=== PATIENT | male | born 1965 | race Caucasian/White ===

== ENCOUNTER 2017-08-30 19:24 | Emergency (ER) | payer SELFPAY ==
[~2017-08-30 19:24] MED LIST: Z.0.NO CURRENT MEDS
[2017-08-30 19:26] VITALS: BP 147/79; PULSE 88; RESP 16; TEMP 99.1; O2SAT 99
--- NOTE | 2017-08-30 21:27 | PD ---
HPI Chief Complaint: Laceration/Skin Injury Time Seen by Provider: 21:16 Travel History International Travel<30 days: No Contact w/Intl Traveler<30days: No Traveled to known affect area: No History of Present Illness HPI The patient is a 52-year-old male who presents to the emergency department via private vehicle for laceration to the left lower eyelid. The patient states he accidentally got a fishhook stuck in the left lower eyelid earlier today. When it pulled free, he noted a laceration to the left lower eyelid. He denies any ocular pain, pain with movement, redness, tearing, or vision changes. He cannot recall his last tetanus shot. He denies any chronic medical problems. He denies taking any medications. He denies any allergies. The patient states the laceration occurred approximately 2-1/2 hours ago. FOR[facility]LY [facility], LATER [facility] Past Medical History Medical History: Denies Significant Hx Past Surgical History Narrative Surgical Noncontributory Social History Tobacco Use: Yes Allergies-Medications (Allergen,Severity, Reaction): Coded Allergies: No Known Allergies (Verified , 06/04/10) Reported Meds & Prescriptions Reported Meds & Active Scripts Active Reported No Current Meds (Miscellaneous Medication) Misc Review of Systems Except as stated in HPI: all other systems reviewed are Neg General / Constitutional: No: Fever Eyes: Positive: Other (laceration to the lower eyelid as noted), No: Blurred Vision, Photophobia, Drainage, Redness, Foreign Body Sensation, Pain, Tearing, Blind Spots, Visual changes Musculoskeletal: Positive: Other (laceration to the lower eyelid is noted) Physical Exam Narrative GENERAL: Awake, alert, pleasant 52-year-old male who appears his stated age and is in no acute respiratory distress. SKIN: Focused skin assessment warm/dry. HEAD: Atraumatic. Normocephalic. EYES: Pupils equal and round. No scleral icterus. No injection or drainage. Pupils are 3 mm bilateral and reactive. EOMs are intact. Inspection left lower eyelid reveals an L-shaped laceration that is through and through the lower eyelid. ENT: No nasal bleeding or discharge. Mucous membranes pink and moist. NECK: Trachea midline. No JVD. MUSCULOSKELETAL: No obvious deformities. No clubbing. No cyanosis. No edema. NEUROLOGICAL: Awake and alert. No obvious cranial nerve deficits. Motor grossly within normal limits. Normal speech. PSYCHIATRIC: Appropriate mood and affect; insight and judgment normal. Data Data Last Documented VS Vital Signs Date Time Temp Pulse Resp B/P (MAP) Pulse Ox O2 Delivery O2 Flow Rate FiO2 08/30/17 19:26 99.1 88 16 147/79 (101) 99 Orders Orders Tetanus & Diptheria (08/30/17 21:23) MDM Medical Decision Making Medical Screen Exam Complete: Yes Emergency Medical Condition: Yes Medical Record Reviewed: Yes Differential Diagnosis Differential diagnosis includes laceration, corneal abrasion, subconjunctival hemorrhage, abrasion, hematoma, fracture. Narrative Course The patient has a through and through laceration left lower eyelid that actually involves the eyelid, through and through. Therefore, the on-call cranial facial surgeon was paged as the patient will need proper repair to avoid inversion/eversion of the eyelid. Dr. Castro was paged at 9:25 PM. I discussed the patient Dr. Castro who agrees with closing the eyelid inferior to the actual lid, he will see the patient at 8 AM in the office to repair the rest. The laceration was approximated using 6-0 nylon. He was administered a tetanus shot and erythromycin ointment. He is advised to use erythromycin ointment 4 times a day. Diagnosis Primary Impression: Laceration, eyelid, left Qualified Codes: S01.112A - Laceration without foreign body of left eyelid and periocular area, initial encounter Referrals: Bhaskar Castro DDS Patient Instructions: General Instructions Additional Instructions: Call Dr. Castro's office at 8 AM to make an appointment have the eyelid 6 in the morning. Erythromycin 4 times a day. Med/Other Pt SpecificInfo: Other (use the ointment provided in the emergency department for times a day for 5 days.) Disposition: 01 DISCHARGE HOME Condition: Stable James Kumar MD Aug 30, 2017 21:27
[2017-08-30] MEDS ORDERED: TETANUS/DIPHTHERIA TOXOID ADULT 0.5 ML VIAL IM ONE (21:45)
[2017-08-30] MEDS ORDERED: ERYTHROMYCIN 0.5% OPTH OINT 3.5 GM TUBO LEFT EYE ONE (21:45)
== END 2017-08-30 22:05 | disposition home or self-care (01) ==
LOC: NEPD 19:24
DX: S01.112A Laceration without foreign body of left eyelid and periocular area, initial encounter (principal); W22.8XXA Striking against or struck by other objects, initial encounter
CPT/HCPCS: 12011; 90471

== ENCOUNTER 2017-09-10 16:06 | Inpatient (IN) | payer SELFPAY ==
[~2017-09-10] VITALS: Ht 185.4 cm; Wt 80.0 kg
[2017-09-10 16:08] VITALS: BP 132/71; PULSE 16; PULSE 96; RESP 16; TEMP 101.4; O2SAT 98
[2017-09-10] MEDS ORDERED: SODIUM CHLOR 0.9% 1000 ML INJ 1,000 ML IV SCH (16:43)
--- NOTE | 2017-09-10 16:43 | PD ---
HPI Chief Complaint: Neuro Symptoms/ Deficits Time Seen by Provider: 16:25 Travel History International Travel<30 days: No Contact w/Intl Traveler<30days: No Traveled to known affect area: No History of Present Illness HPI 52-year-old male presents to the emergency Department with complaint of left arm weakness and slurred speech since Wednesday morning after he thinks he had a stroke. He said he got dizzy and had left-sided weakness which has improved minimally since Wednesday. Denies change in mentation, confusion, disorientation. Denies difficulty ambulating. Denies headache, neck pain, fevers, vomiting, chest pain, shortness of breath, abdominal pain. Denies illicit drug use. Denies alcohol use. Ports tobacco use. Denies anticoagulant therapy. Does not have established primary care provider. No known allergies. Denies significant past medical history. Denies current medications. Has no other medical complaints. No other modifying factors or associated signs and symptoms. PFSH Social History Alcohol Use: No Tobacco Use: Yes Substance Use: No Allergies-Medications (Allergen,Severity, Reaction): Coded Allergies: No Known Allergies (Verified Adverse Reaction, Unknown, 09/10/17) Reported Meds & Prescriptions Reported Meds & Active Scripts Active Reported No Current Meds (Miscellaneous Medication) Misc Review of Systems Except as stated in HPI: all other systems reviewed are Neg Physical Exam Narrative GENERAL: Well-nourished, well-developed patient, in no acute distress; fever 101.4; nontoxic-appearing SKIN: Warm and dry. HEAD: Atraumatic. Normocephalic. Left-sided facial droop noted. Tongue midline. EYES: Pupils equal and round at 3 mm with brisk reaction. No scleral icterus. No injection or drainage. PERRLA. EOMI. ENT: Mucosa pink and moist. Airway patent. NECK: Trachea midline. No lymphadenopathy. CARDIOVASCULAR: Regular rate and rhythm. No murmur appreciated. RESPIRATORY: No accessory muscle use. Clear to auscultation. Breath sounds equal bilaterally. GASTROINTESTINAL: Abdomen soft, non-tender, nondistended. Hepatic and splenic margins not palpable. Bowel sounds are active 4 quadrants. MUSCULOSKELETAL: No obvious deformities. No clubbing. No cyanosis. No edema. NEUROLOGICAL: Awake and alert. Oriented 4. No obvious cranial nerve deficits. Motor grossly within normal limits. Speech somewhat slurred. No ataxia. Left upper extremity weakness and with drift; decreased supervisor costuming strength when compared to the right. No lower extremity drift. Moves all extremities. PSYCHIATRIC: Appropriate mood and affect; insight and judgment normal. Data Data Last Documented VS Vital Signs Date Time Temp Pulse Resp B/P (MAP) Pulse Ox O2 Delivery O2 Flow Rate FiO2 09/10/17 19:36 100.7 89 19 134/70 (91) 99 Room Air Orders Orders Influenzae A/B Antigen (09/10/17 16:43) Complete Blood Count With Diff (09/10/17 16:43) Comprehensive Metabolic Panel (09/10/17 16:43) Prothrombin Time / Inr (Pt) (09/10/17 16:43) Act Partial Throm Time (Ptt) (09/10/17 16:43) Urinalysis - C+S If Indicated (09/10/17 16:43) Iv Access Insert/Monitor (09/10/17 16:43) Ecg Monitoring (09/10/17 16:43) Oximetry (09/10/17 16:43) Sodium Chlor 0.9% 1000 Ml Inj (Ns 1000 M (09/10/17 16:43) Sodium Chloride 0.9% Flush (Ns Flush) (09/10/17 16:45) Chest, Single Ap (09/10/17 16:43) Sepsis Workup Initiated (09/10/17 ) Lactic Acid Sepsis Protocol (09/10/17 16:43) Blood Culture (09/10/17 16:43) Ct Brain W/O Iv Contrast(Rout) (09/10/17 ) Drug Screen, Random Urine (09/10/17 16:43) Aspirin (Aspirin) (09/10/17 18:45) Vancomycin Inj (Vancomycin Inj) (09/10/17 18:45) Piperacil-Tazo 3.375 Gm Premix (Zosyn 3. (09/10/17 18:45) Sodium Chlor 0.9% 1000 Ml Inj (Ns 1000 M (09/10/17 18:45) Urine Culture (09/10/17 18:40) Admit Order (Ed Use Only) (09/10/17 19:38) Labs Laboratory Tests Test 09/10/17 17:15 09/10/17 18:40 White Blood Count 15.9 TH/MM3 Red Blood Count 4.77 MIL/MM3 Hemoglobin 13.3 GM/DL Hematocrit 39.5 % Mean Corpuscular Volume 82.8 FL Mean Corpuscular Hemoglobin 28.0 PG Mean Corpuscular Hemoglobin Concent 33.8 % Red Cell Distribution Width 13.1 % Platelet Count 175 TH/MM3 Mean Platelet Volume 8.3 FL Neutrophils (%) (Auto) 85.8 % Lymphocytes (%) (Auto) 6.2 % Monocytes (%) (Auto) 7.8 % Eosinophils (%) (Auto) 0.0 % Basophils (%) (Auto) 0.2 % Neutrophils # (Auto) 13.6 TH/MM3 Lymphocytes # (Auto) 1.0 TH/MM3 Monocytes # (Auto) 1.2 TH/MM3 Eosinophils # (Auto) 0.0 TH/MM3 Basophils # (Auto) 0.0 TH/MM3 CBC Comment AUTO DIFF Differential Comment AUTO DIFF CONFIRMED Toxic Granulation 1+ Platelet Estimate NORMAL Platelet Morphology Comment NORMAL Prothrombin Time 12.9 SEC Prothromb Time International Ratio 1.3 RATIO Activated Partial Thromboplast Time 28.2 SEC Blood Urea Nitrogen 14 MG/DL Creatinine 1.05 MG/DL Random Glucose 130 MG/DL Total Protein 7.8 GM/DL Albumin 2.6 GM/DL Calcium Level 8.5 MG/DL Alkaline Phosphatase 132 U/L Aspartate Amino Transf (AST/SGOT) 90 U/L Alanine Aminotransferase (ALT/SGPT) 65 U/L Total Bilirubin 0.7 MG/DL Sodium Level 128 MEQ/L Potassium Level 3.6 MEQ/L Chloride Level 91 MEQ/L Carbon Dioxide Level 28.7 MEQ/L Anion Gap 8 MEQ/L Estimat Glomerular Filtration Rate 75 ML/MIN Lactic Acid Level 2.3 mmol/L Urine Color YELLOW Urine Turbidity CLEAR Urine pH 6.0 Urine Specific [place] 1.021 Urine Protein 30 mg/dL Urine Glucose (UA) NEG mg/dL Urine Ketones NEG mg/dL Urine Occult Blood LARGE Urine Nitrite NEG Urine Bilirubin NEG Urine Urobilinogen 8.0 MG/DL Urine Leukocyte Esterase NEG Urine RBC 12 /hpf Urine WBC 2 /hpf Urine Bacteria MOD /hpf Urine Mucus FEW /lpf Microscopic Urinalysis Comment CULTURE INDICATED MDM Medical Decision Making Medical Screen Exam Complete: Yes Emergency Medical Condition: Yes Medical Record Reviewed: Yes Differential Diagnosis Stroke, CVA, sepsis, influenza Narrative Course 52-year-old male with left-sided facial droop, left arm weakness, and a little bit of slurred speech since Wednesday. She denies fevers or recent illness. He does have a fever of 101.4 in the ER. He is nontoxic-appearing. He has no current complaints except for the left-sided weakness. I discussed with my attending physician, Dr. Mcelroy, and she agrees with my plan of care. Patient placed on cardiopulmonary monitor. IV site obtained. CBC, CMP, coags, urinalysis, lactic acid, blood cultures, normal saline bolus, CT head, chest x- ray, drug screen ordered. 1833: CT head and chest x-ray concludes: Chest X-Ray 09/10/17 1643 Signed Impressions: Service Date/Time: Sunday, September 10, 2017 17:00 - CONCLUSION: No acute disease. Bimal Diallo MD Head CT 09/10/17 0000 Signed Impressions: Service Date/Time: Sunday, September 10, 2017 17:16 - CONCLUSION: 1. Questionable hypodensity in the mid right cerebral hemisphere adjacent to the sylvian fissure is seen on only one image and may be artifactual. This would not explain any right-sided symptoms the patient was experiencing. If there is a clinical concern, MRI of the brain could be performed for further characterization. 2. Minimal chronic sinus disease in one of the anterior right ethmoid air cells on the right. Kirby Trejo MD WBC 15.9. Coags unremarkable. Sodium 128. Lactic acid 2.3. Vancomycin, Zosyn , second normal saline bolus, aspirin ordered. 1908: Urinalysis with signs of infection and reflex urine culture. Call placed to AAYUSH for admission. 1938: I spoke [facility] Mendes and report given for patient admission. Physician Communication Physician Communication AAYUSH Mendes Diagnosis Primary Impression: Left-sided weakness Additional Impressions: Sepsis Qualified Codes: A41.9 - Sepsis, unspecified organism Weakness on left side of face UTI (urinary tract infection) Qualified Codes: N39.0 - Urinary tract infection, site not specified Admitting Information Admitting Physician Requests: Admit Tracy Wyman [facility] Sep 10, 2017 16:43
[2017-09-10] MEDS ORDERED: SODIUM CHLORIDE 0.9% FLUSH 10 ML FLUSH IV FLUSH PRN ×2 (16:45→19:45)
[2017-09-10 17:21] VITALS: O2SAT 97
--- NOTE | 2017-09-10 17:23 | RADRPT ---
EXAM DATE/TIME: 09/10/2017 17:00 [facility] COMPARISON: No previous studies available for comparison. INDICATIONS : Left hand pain. Fever since wednesday. MEDICAL HISTORY : None. SURGICAL HISTORY : Unobtainable. ENCOUNTER: Initial ACUITY: 2 days PAIN SCORE: 0/10 LOCATION: Bilateral chest FINDINGS: A single view of the chest demonstrates the lungs to be symmetrically aerated without evidence of mas s, infiltrate or effusion. The cardiomediastinal contours are unremarkable. Osseous structures are intact. CONCLUSION: No acute disease. Bimal Diallo MD on September 10, 2017 at 17:21 Board Certified Radiologist. This report was verified electronically.
[2017-09-10 17:26] VITALS: BP 146/65; PULSE 95; RESP 16; O2SAT 98
[2017-09-10 17:29] LABS: AUTOMATED NEUTROPHIL # 13.6 TH/MM3 (1.8-7.7); BASOPHIL % 0.2 % (0.0-2.0); HEMATOCRIT 39.5 % (39.0-51.0); LYMPH % 6.2 % (9.0-44.0); MEAN CELL VOLUME 82.8 FL (80.0-100.0); MEAN CORPUSCULAR HGB CONC 33.8 % (32.0-36.0); MONO % 7.8 % (0.0-8.0); NEUT % 85.8 % (16.0-70.0); PLATELET COUNT 175 TH/MM3 (150-450); RED BLOOD COUNT 4.77 MIL/MM3 (4.50-5.90); RED CELL DISTRIBUTION WIDTH 13.1 % (11.6-17.2); WHITE BLOOD COUNT 15.9 TH/MM3 (4.0-11.0)
--- NOTE | 2017-09-10 17:32 | RADRPT ---
EXAM DATE/TIME: 09/10/2017 17:16 [facility] COMPARISON: No previous studies available for comparison. INDICATIONS : Evaluate for stroke. Right side weakness yesterday which subsided, today left facial droop. RADIATION DOSE: 36.08 CTDIvol (mGy) MEDICAL HISTORY : None SURGICAL HISTORY : None. ENCOUNTER: Initial ACUITY: 1 day PAIN SCALE: 0/10 LOCATION: cranial TECHNIQUE: Multiple contiguous axial images were obtained of the head. Using automated exposure control and adj ustment of the mA and/or kV according to patient size, radiation dose was kept as low as reasonably a chievable to obtain optimal diagnostic quality images. DICOM format image data is available electro nically for review and comparison. FINDINGS: CEREBRUM: The ventricles are normal for age. No evidence of midline shift, mass lesion, hemorrhage or acute in farction. Questionable hypodensity at the junction of the right centrum semiovale and prince radiata adjacent to the sylvian fissure could represent a small area of encephalomalacia versus partial volu me averaging of the normal brain parenchyma with the fissure. No extra-axial fluid collections are se en. POSTERIOR FOSSA: The cerebellum and brainstem are intact. The 4th ventricle is midline. The cerebellopontine angle i s unremarkable. EXTRACRANIAL: The visualized portion of the orbits is intact. Isolated mucoperiosteal thickening in one of the ante rior ethmoid air cells on the right. SKULL: The calvaria is intact. No evidence of skull fracture. CONCLUSION: 1. Questionable hypodensity in the mid right cerebral hemisphere adjacent to the sylvian fissure is s een on only one image and may be artifactual. This would not explain any right-sided symptoms the pat ient was experiencing. If there is a clinical concern, MRI of the brain could be performed for furthe r characterization. 2. Minimal chronic sinus disease in one of the anterior right ethmoid air cells on the right. Kirby Trejo MD on September 10, 2017 at 17:25 Board Certified Radiologist. This report was verified electronically.
[2017-09-10 17:34] LABS: HEMO FLAGS AUTO DIFF
[2017-09-10 17:40] LABS: APTT (PATIENT) 28.2 SEC (24.3-30.1); INTERNATIONAL NORMALIZED RATIO 1.3 RATIO; PROTHROMBIN TIME - PATIENT 12.9 SEC (9.8-11.6)
[2017-09-10 17:46] LABS: ALT (GPT) 65 U/L (12-78); ANION GAP 8 MEQ/L (5-15); AST (GOT) 90 U/L (15-37); BICARBONATE 28.7 MEQ/L (21.0-32.0); BLOOD UREA NITROGEN 14 MG/DL (7-18); CHLORIDE 91 MEQ/L (98-107); GLOMERULAR FILTRATION RATE 75 ML/MIN (>89); POTASSIUM 3.6 MEQ/L (3.5-5.1); SODIUM (NA) 128 MEQ/L (136-145)
[2017-09-10 17:48] LABS: ALKALINE PHOSPHATASE 132 U/L (45-117); TOTAL BILIRUBIN ADULT 0.7 MG/DL (0.2-1.0)
[2017-09-10 18:19] LABS: PLATELET ESTIMATE SMEAR NORMAL (NORMAL); PLATELET MORPHOLOGY NORMAL (NORMAL); SCAN/DIFF AUTO DIFF CONFIRMED; TOXIC GRANULATION 1+ (NORMAL)
[2017-09-10 18:45] VITALS: BP 126/71; PULSE 83; RESP 16; O2SAT 98
[2017-09-10] MEDS ORDERED: PIPERACIL-TAZO 3.375 GM PREMIX 50 ML IV ONE (18:45)
[2017-09-10] MEDS ORDERED: SODIUM CHLOR 0.9% 1000 ML INJ 1,000 ML IV ONE (18:45)
[2017-09-10] MEDS ORDERED: ASPIRIN 325 MG TAB PO ONE (18:45)
[2017-09-10] MEDS ORDERED: VANCOMYCIN INJ 1,000 MG in SODIUM CHLOR 0.9% 250 ML INJ 250 ML IV ONE (18:45)
[2017-09-10 19:07] LABS: BACTERIA, URINE MOD /hpf; BLOOD, URINE LARGE (NEG); COMMENT (UR) CULTURE INDICATED; CULTURE IF INDICATED CULTURE INDICATED; GLUCOSE,URINE NEG (NEG); KETONE, URINE NEG (NEG); MUCUS URINE FEW /lpf (OCC); NITRITE,URINE NEG (NEG); URINE COLOR YELLOW (YELLW/STRAW)
[2017-09-10 19:20] LABS: LACTIC ACID GHOST NOT REPORTABLE
[2017-09-10 19:36] VITALS: BP 134/70; PULSE 89; RESP 19; TEMP 100.7; O2SAT 99
--- NOTE | 2017-09-10 19:44 | HHI.HP ---
[facility] Primary [facility] Physician No Primary Care Physician Admission Diagnosis sepsis, left sided facial droop and weakness Diagnoses: (1) CVA (cerebral vascular accident) Diagnosis: Principal (2) Sepsis Diagnosis: Principal (3) UTI (urinary tract infection) Diagnosis: Principal (4) Tobacco abuse Diagnosis: Principal Travel History International Travel<30 Days: No Contact w/Intl Traveler <30 Da: No Traveled to Known Affected Are: No History of Present Illness This is a 52-year-old male with no reported PMH except for Tobacco Abuse who presented to the ER with complaints of left-sided weakness in addition to slurred speech x2 days. States symptoms started on Wednesday w/ left-sided weakness, did not seek medical attention at that time. Today w/ persistent weakness and left facial droop w/ slurred speech. On arrival, BP 132/71, HR 96 , O2 sat 98% on RA, Temp 101.4. WBC 15.9. GFR 75. Lactic Acid 2.3. INR 1.3. UA positive for UTI. CXR with no acute findings. CT Head with questionable hypodensity and mid right cerebral hemisphere, recommendation for MRI. S/p Blood/Urine cultures and Vanc/Zosyn in ER. Review of Systems Except as stated in HPI: all other systems reviewed are Neg ROS: 14 point review of systems otherwise negative. Past Family Social History Past Medical History PMH: None Past Surgical History PAST SURGICAL HISTORY: None Allergies: Coded Allergies: No Known Allergies (Verified Adverse Reaction, Unknown, 09/10/17) Family History PAST FAMILY HISTORY: Reviewed. No h/o DM or CAD Social History PAST SOCIAL HISTORY: Negative for alcohol or drugs. Positive for tobacco. Physical Exam Vital Signs Vital Signs Date Time Temp Pulse Resp B/P (MAP) Pulse Ox O2 Delivery O2 Flow Rate FiO2 09/10/17 19:36 100.7 89 19 134/70 (91) 99 Room Air 09/10/17 18:45 83 16 126/71 (89) 98 Room Air 09/10/17 17:26 95 16 146/65 (92) 98 Room Air 09/10/17 17:21 97 Room Air 09/10/17 17:21 97 Room Air 09/10/17 16:08 101.4 96 16 132/71 (91) 98 Physical Exam PE: GENERAL: Middle-aged male in no acute distress. HEENT: PERRLA, EOMI. No scleral icterus or conjunctival pallor. No lid lag. + left facial droop. Slurred speech. CARDIOVASCULAR: Regular rate and rhythm. No obvious murmurs to auscultation. No chest tenderness to palpation. RESPIRATORY: No obvious rhonchi or wheezing. Clear to auscultation. Breath sounds equal bilaterally. GASTROINTESTINAL: Abdomen soft, non-tender, nondistended. BS normal. MUSCULOSKELETAL: Extremities without clubbing, cyanosis, or edema. No obvious deformities. NEUROLOGICAL: Awake, alert and oriented x4. LUE/LLE weakness, 4/5. Moving both upper and lower extremities spontaneously. Laboratory Laboratory Tests Test 09/10/17 17:15 09/10/17 18:40 White Blood Count 15.9 Red Blood Count 4.77 Hemoglobin 13.3 Hematocrit 39.5 Mean Corpuscular Volume 82.8 Mean Corpuscular Hemoglobin 28.0 Mean Corpuscular Hemoglobin Concent 33.8 Red Cell Distribution Width 13.1 Platelet Count 175 Mean Platelet Volume 8.3 Neutrophils (%) (Auto) 85.8 Lymphocytes (%) (Auto) 6.2 Monocytes (%) (Auto) 7.8 Eosinophils (%) (Auto) 0.0 Basophils (%) (Auto) 0.2 Neutrophils # (Auto) 13.6 Lymphocytes # (Auto) 1.0 Monocytes # (Auto) 1.2 Eosinophils # (Auto) 0.0 Basophils # (Auto) 0.0 CBC Comment AUTO DIFF Differential Comment AUTO DIFF CONFIRMED Toxic Granulation 1+ Platelet Estimate NORMAL Platelet Morphology Comment NORMAL Prothrombin Time 12.9 Prothromb Time International Ratio 1.3 Activated Partial Thromboplast Time 28.2 Blood Urea Nitrogen 14 Creatinine 1.05 Random Glucose 130 Total Protein 7.8 Albumin 2.6 Calcium Level 8.5 Alkaline Phosphatase 132 Aspartate Amino Transf (AST/SGOT) 90 Alanine Aminotransferase (ALT/SGPT) 65 Total Bilirubin 0.7 Sodium Level 128 Potassium Level 3.6 Chloride Level 91 Carbon Dioxide Level 28.7 Anion Gap 8 Estimat Glomerular Filtration Rate 75 Lactic Acid Level 2.3 Urine Color YELLOW Urine Turbidity CLEAR Urine pH 6.0 Urine Specific [place] 1.021 Urine Protein 30 Urine Glucose (UA) NEG Urine Ketones NEG Urine Occult Blood LARGE Urine Nitrite NEG Urine Bilirubin NEG Urine Urobilinogen 8.0 Urine Leukocyte Esterase NEG Urine RBC 12 Urine WBC 2 Urine Bacteria MOD Urine Mucus FEW Microscopic Urinalysis Comment CULTURE INDICATED Date/Time Source Procedure Growth Status 09/10/17 19:25 Blood Peripheral Aerobic Blood Culture Pending Received 09/10/17 19:25 Blood Peripheral Anaerobic Blood Culture Pending Received 09/10/17 19:27 Nasal Washing Influenza Types A,B Antigen (SERENITY) Pending Received 09/10/17 18:40 Urine Clean Catch Urine Culture Pending Received Result Diagram: 09/10/17 1715 09/10/17 171 Caprini VTE Risk Assessment Caprini VTE Risk Assessment: Mod/High Risk (score >= 2) Caprini Risk Assessment Model Point Value = 1 Point Value = 2 Point Value = 3 Point Value = 5 Age 41-60 Minor surgery BMI > 25 kg/m2 Swollen legs Varicose veins or History of unexplained or recurrent spontaneous Oral contraceptives or hormone replacement Sepsis (< 1 month) Serious lung disease, including pneumonia (< 1 month) Abnormal pulmonary function Acute myocardial infarction Congestive heart failure (< 1 month) History of inflammatory bowel disease Medical patient at bed rest Age 61-74 Arthroscopic surgery Major open surgery (> 45 min) Laparoscopic surgery (> 45 min) Malignancy Confined to bed (> 72 hours) Immobilizing plaster cast Central venous access Age >= 75 History of VTE Family history of VTE Factor V Leiden Prothrombin [id number] Lupus anticoagulant Anticardiolipin antibodies Elevated serum homocysteine Heparin-induced thrombocytopenia Other congenital or acquired thrombophilia Stroke (< 1 month) Elective arthroplasty Hip, pelvis, or leg fracture Acute spinal cord injury (< 1 month) Prophylaxis Regimen Total Risk Factor Score Risk Level Prophylaxis Regimen 0-1 Low Early ambulation 2 Moderate Order ONE of the following: *Sequential Compression Device (SCD) *Heparin 5000 units SQ BID 3-4 Higher Order ONE of the following medications: *Heparin 5000 units SQ TID *Enoxaparin/Lovenox 40 mg SQ daily (WT < 150 kg, CrCl > 30 mL/min) *Enoxaparin/Lovenox 30 mg SQ daily (WT < 150 kg, CrCl > 10-29 mL/min) *Enoxaparin/Lovenox 30 mg SQ BID (WT < 150 kg, CrCl > 30 mL/min) AND/OR *Sequential Compression Device (SCD) 5 or more Highest Order ONE of the following medications: *Heparin 5000 units SQ TID (Preferred with Epidurals) *Enoxaparin/Lovenox 40 mg SQ daily (WT < 150 kg, CrCl > 30 mL/min) *Enoxaparin/Lovenox 30 mg SQ daily (WT < 150 kg, CrCl > 10-29 mL/min) *Enoxaparin/Lovenox 30 mg SQ BID (WT < 150 kg, CrCl > 30 mL/min) AND *Sequential Compression Device (SCD) Assessment and Plan Problem List: (1) Sepsis ICD Code: A41.9 - Sepsis, unspecified organism Status: Acute (2) UTI (urinary tract infection) ICD Code: N39.0 - Urinary tract infection, site not specified Status: Acute (3) CVA (cerebral vascular accident) ICD Code: I63.9 - Cerebral infarction, unspecified (4) Tobacco abuse ICD Code: Z72.0 - Tobacco use Assessment and Plan A/P: 1. Sepsis: Temp 101.4, HR 96, WBC 15.9, Source-UTI. S/p Blood/Urine cultures , Vanc/Zosyn in ER. Follow up cultures, continue IV Abx. CXR w/ no acute findings, images reviewed by me. 2. UTI: U/a w/ UTI. Continue w/ treatment as above, follow up cultures. 3. CVA: Left-sided weakness, slurred speech, facial droop x2 days, outside TPA window. CT Head w/ questionable hypodensity right cerebral hemisphere, images reviewed by me. Check MRI/MRA, start ASA/Pravastatin, Consult PT/Speech for further eval. Consult Neurology. 4. Tobacco Abuse: Pt counselled. Ativan prn if needed. No NicoDerm to avoid vasoconstriction. 5. DVT Prophylaxis: SCD/Teds. 6. Social work for d/c planning as needed. 7. Case discussed w/ ER physician at length. Physician Certification 2 Midnight Certification Type: Admission for Inpatient Services Order for Inpatient Services The services are ordered in accordance with Medicare regulations or non- Medicare payer requirements, as applicable. In the case of services not specified as inpatient-only, they are appropriately provided as inpatient services in accordance with the 2-midnight benchmark. Estimated LOS (days): 2 days is the estimated time the patient will need to remain in the hospital, assuming treatment plan goals are met and no additional complications. Post-Hospital Plan: Not yet determined Problem Qualifiers (1) Sepsis: Qualified Codes: A41.9 - Sepsis, unspecified organism (2) UTI (urinary tract infection): Qualified Codes: N39.0 - Urinary tract infection, site not specified Taylor Ventura MD Sep 10, 2017 19:44
[2017-09-10] MEDS ORDERED: GLUCAGON 1 MG/ML VIAL OTHER PRN (19:45)
[2017-09-10] MEDS ORDERED: MORPHINE SULFATE 4 MG/ML INJ IV PUSH PRN (19:45)
[2017-09-10] MEDS ORDERED: DEXTROSE 50% IN WATER 50 ML VIAL(D50) IV PUSH PRN (19:45)
[2017-09-10] MEDS ORDERED: ENALAPRILAT 1.25 MG/ML VIAL IV PUSH PRN (19:45)
[2017-09-10] MEDS ORDERED: ONDANSETRON HCL 4 MG/2 ML VIAL IVP PRN (19:45)
[2017-09-10] MEDS ORDERED: BISACODYL 10 MG SUPP RECTAL PRN (19:45)
[2017-09-10] MEDS: INSULIN ASPART SUPPLEMENTAL SCALE SQ SCH (21:00)
[2017-09-10 21:43] VITALS: BP 119/71; PULSE 77; RESP 18; TEMP 98.3; O2SAT 97
--- NOTE | 2017-09-10 21:49 | RADRPT ---
EXAM DATE/TIME: 09/10/2017 21:01 [facility] COMPARISON: No previous studies available for comparison. INDICATIONS : CVA. Left side weakness. MEDICAL HISTORY : None. SURGICAL HISTORY : Right wrist. ENCOUNTER: Subsequent ACUITY: 3 day PAIN SCORE: 3/10 LOCATION: cranial TECHNIQUE: Multiplanar, multisequence MRI of the brain was performed without contrast. FINDINGS: There is a small lacunar infarct in left frontal lobe. There is a 2.1 cm infarct in the right MCA dis tribution with additional smaller infarcts in the right MCA distribution. There is a focal small infa rct on the right side superiorly at the cerebellar vermis. There is also small infarct in the dorsal aspect of the midbrain. Also lacunar infarct in the right dentate nucleus of the cerebellum. No mass effect or midline shift. No hydrocephalus. No abnormal extra-axial fluid collections. CONCLUSION: 1. Small scattered bilateral infarcts as above predominantly in the right MCA distribution. Amado Hale MD on September 10, 2017 at 21:41 Board Certified Radiologist. This report was verified electronically.
--- NOTE | 2017-09-10 21:51 | RADRPT ---
EXAM DATE/TIME: 09/10/2017 21:01 [facility] COMPARISON: No previous studies available for comparison. INDICATIONS : CVA. Left side weakness. MEDICAL HISTORY : None. SURGICAL HISTORY : Right wrist. ENCOUNTER: Subsequent ACUITY: 3 day PAIN SCORE: 3/10 LOCATION: cranial Please note a normal MRA of the brain does not entirely exclude the possibility of a small aneurysm, nor the possibility of distal intracranial vessel disease. TECHNIQUE: 3D time of flight MRA was performed. Source images, multiplanar STS MIP, and 3D volume MIP reconstru ctions were reviewed. FINDINGS: There is excellent visualization of the major intracranial arteries out to the second-order branch ve ssels. There is no evidence for aneurysm, vessel truncation or stenosis, and no evidence for vascula r malformation. CONCLUSION: Normal examination for a patient of this age. Amado Hale MD on September 10, 2017 at 21:47 Board Certified Radiologist. This report was verified electronically.
[2017-09-10] MEDS: SODIUM CHLOR 0.9% 1000 ML INJ 1,000 ML IV SCH (23:44)
[2017-09-10] MEDS: PRAVASTATIN SOD 40 MG TAB PO SCH (23:44)
[2017-09-10] MEDS: SODIUM CHLORIDE 0.9% FLUSH 10 ML FLUSH IV FLUSH SCH (23:44)
[2017-09-11] VITALS (7 sets, daily range): BP systolic 116–145; BP diastolic 67–75; PULSE 63–93; RESP 17–20; TEMP 97.8–100.1; O2SAT 97–100
[2017-09-11] MEDS: INSULIN ASPART SUPPLEMENTAL SCALE SQ SCH ×4 (08:00→21:19)
--- NOTE | 2017-09-11 08:04 | MB ---
cc: JON NORTH M.D. DATE OF CONSULTATION: 09/11/2017 REASON FOR CONSULTATION: He is 52-year-old seen in neurological consultation. He developed symptoms 3 days ago and came to the hospital yesterday. The patient has developed left-sided weakness. According to the H&P. He is very poor historian. The patient admits smoking but denies drug or medication use. I spoke to the RN. The patient is has been agitated at times during the night, somewhat poorly cooperative. Also denies alcohol use. PHYSICAL EXAMINATION: NEUROLOGIC EXAMINATION: On exam he is awake and oriented. The right pupil is slightly smaller but both are reactive. Visual almeida were full. No obvious facial weakness. He raised the arm and he has actually good strength on the left side better than right. He has prominent a taxi right upper extremity on [id number] testing while resting there is no underlying movement disorder. He seems to move the right lower extremity with a fairly good coordination on the heel - knee - callejas testing. He has brisker reflexes on the right and plantar extensor response on the right. ANCILLARY DATA: WBC 15.9, hemoglobin 13.3, platelets 175. Sodium 128, potassium 3.6, BUN and creatinine normal. Glucose 130, AST elevated to 90 and ALT 65, INR 1.3. Toxicology positive urine cocaine, 12 RBCs and two WBCs in the urine. The MRI brain was reviewed. There are subacute areas of infarct bilaterally including right and left cerebral hemisphere as well as right superior cerebellar and extending to the mid brain. ASSESSMENT/PLAN: 1. Multiple relatively small subacute infarcts multiple distribution. 2. Positive cocaine in urine which the patient denies any substance abuse. 3. Look for endocarditis. 4. Look for heart thrombus. 5. Apparent urinary tract infection 6. Possible sepsis. 7. He is on statin and aspirin and antibiotics. 8. Further evaluation to include echocardiogram. 9. I will check sed rate, blood cultures if not been drawn yet. 10. MRA head was normal. 11. Will have carotid ultrasound if not done yet. 12. Thank you for asking us to assist in his care. 13. We will have SCDs. MD ANIA Lyon/baldemar /7:05 AM /7:49 AM
--- NOTE | 2017-09-11 08:21 | HHI.PR ---
Subjective Remarks left sided weakness Upper more than lower- per patient some improvement in strength denies any headaches, nausea or vomiting or neck pain no complians of cough or dysuria Objective Vitals Vital Signs Date Time Temp Pulse Resp B/P (MAP) Pulse Ox O2 Delivery O2 Flow Rate FiO2 09/11/17 04:46 99.5 83 18 129/67 (87) 99 09/11/17 00:32 99.0 63 18 131/70 (90) 100 09/10/17 21:43 98.3 77 18 119/71 (87) 97 09/10/17 21:38 09/10/17 19:36 100.7 89 19 134/70 (91) 99 Room Air 09/10/17 18:45 83 16 126/71 (89) 98 Room Air 09/10/17 17:26 95 16 146/65 (92) 98 Room Air 09/10/17 17:21 97 Room Air 09/10/17 17:21 97 Room Air 09/10/17 16:08 101.4 96 16 132/71 (91) 98 I/O 09/10/17 09/10/17 09/10/17 09/11/17 09/11/17 09/11/17 07:00 15:00 23:00 07:00 15:00 23:00 Intake Total 2300 ml Output Total 400 ml Balance 2300 ml -400 ml Intake IV Total 2300 ml Output Urine Total 400 ml Result Diagram: 09/10/17 1715 09/10/17 1715 Imaging Last Impressions Chest X-Ray 09/10/17 1643 Signed Impressions: Service Date/Time: Sunday, September 10, 2017 17:00 - CONCLUSION: No acute disease. Bimal Diallo MD Head Magnetic Resonance Angiography 09/10/17 0000 Signed Impressions: Service Date/Time: Sunday, September 10, 2017 21:01 - CONCLUSION: Normal examination for a patient of this age. Amado Hale MD Head CT 09/10/17 0000 Signed Impressions: Service Date/Time: Sunday, September 10, 2017 17:16 - CONCLUSION: 1. Questionable hypodensity in the mid right cerebral hemisphere adjacent to the sylvian fissure is seen on only one image and may be artifactual. This would not explain any right-sided symptoms the patient was experiencing. If there is a clinical concern, MRI of the brain could be performed for further characterization. 2. Minimal chronic sinus disease in one of the anterior right ethmoid air cells on the right. Kirby Trejo MD Brain MRI 09/10/17 0000 Signed Impressions: Service Date/Time: Sunday, September 10, 2017 21:01 - CONCLUSION: 1. Small scattered bilateral infarcts as above predominantly in the right MCA distribution. Amado Hale MD Objective Remarks awake and alert, oriented x3 speech clear anicteric, right eyes- slight ptosis- + shallow left nasolabial fold + carotid bruit left regular rhythm, no murmur abdomen soft, nontender extremities no calf sweelling or tendernss grossly no sensory deficits 4/5 left UE, 4/5 LLE A/P Problem List: (1) Sepsis ICD Code: A41.9 - Sepsis, unspecified organism Status: Acute (2) UTI (urinary tract infection) ICD Code: N39.0 - Urinary tract infection, site not specified Status: Acute (3) CVA (cerebral vascular accident) ICD Code: I63.9 - Cerebral infarction, unspecified (4) Tobacco abuse ICD Code: Z72.0 - Tobacco use Assessment and Plan 52 years old male right handed male, 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 Statins. PT/OT consult Gram negative Sepsis: secondary to UTI on admission T down. CXR negative- reviewed FF cultures Vanc/Zosyn in ER. Follow up cultures, continue IV Abx. - currently on Ceftriaxone- change to IV Levaquin get a renal ultrasound r/o underlying obstructive uropathy- check for hydronephrosis + Carotid bruit for carotid US UTI: U/a w/ UTI. Continue w/ treatment as above, follow up cultures. . check renal ultrasound - check for any obstruction/hydronephrosis Tobacco Abuse: Pt counselled. Ativan prn if needed. No NicoDerm to avoid vasoconstriction. Cocaine +- discussed with him. Patient denies use HYpnatremia- check TSH. FF BMP elevated LFTs- recheck today. get Upper abdominal US- L,GB DC Ceftriaxone- change to Levaquin ff final c and s DVT Prophylaxis: SCD/Teds. Social work for d/c planning as needed. PT consult/OT consult/Speech therapy consult Incentive spirometry hourly Lovenox for DVT prophylaxis Problem Qualifiers (1) Sepsis: Qualified Codes: A41.9 - Sepsis, unspecified organism (2) UTI (urinary tract infection): Qualified Codes: N39.0 - Urinary tract infection, site not specified Flakito Magallon MD Sep 11, 2017 08:21
--- NOTE | 2017-09-11 08:40 | RADRPT ---
EXAM DATE/TIME: 09/11/2017 08:10 [facility] COMPARISON: No previous studies available for comparison. INDICATIONS : Cerebrovascular accident. MEDICAL HISTORY : Tobacco use. SURGICAL HISTORY : Hand surgery. ENCOUNTER: Initial ACUITY: 1 day PAIN SCORE: 0/10 LOCATION: Bilateral neck PEAK SYSTOLIC VELOCITIES (cm/sec): ICA/CCA RATIO: Right: 0.7 Left: 1.0 ICA: Right: 61.1 Left: 83.6 CCA: Right: 90.1 Left: 82.4 ECA: Right: 68.8 Left: 61.1 VERTEBRAL: Right: 44.6 antegrade Left: 39.8 antegrade Elevated flow velocities and ICA/CCA ratios have been found to correlate with increased degrees of vessel stenosis, calculated as percentage of diameter relative to a normal segment of distal ICA/CCA FINDINGS: RIGHT CAROTID: No significant stenosis is visualized. The waveforms are within normal limits. LEFT CAROTID: No significant stenosis is visualized. The waveforms are within normal limits. VERTEBRAL ARTERIES: Antegrade flow is seen in both vertebral arteries. MISCELLANEOUS: None. CONCLUSION: No hemodynamically significant stenosis. Vincent Lenz MD on September 11, 2017 at 8:37 Board Certified Radiologist. This report was verified electronically.
[2017-09-11] MEDS: SODIUM CHLORIDE 0.9% FLUSH 10 ML FLUSH IV FLUSH SCH ×2 (09:00→21:20)
[2017-09-11] MEDS: SODIUM CHLOR 0.9% 1000 ML INJ 1,000 ML IV SCH ×2 (09:57→15:24)
[2017-09-11] MEDS: ASPIRIN 81 MG CHEW TAB PO SCH (10:02)
[2017-09-11] MEDS: ENOXAPARIN SODIUM 30 MG/0.3 ML SYRINGE SQ SCH (10:02)
[2017-09-11 10:13] LABS: AUTOMATED NEUTROPHIL # 14.8 TH/MM3 (1.8-7.7); BASOPHIL % 0.2 % (0.0-2.0); HEMATOCRIT 34.4 % (39.0-51.0); HEMO FLAGS DIFF FINAL; LYMPH % 6.5 % (9.0-44.0); LYMPHOCYTE # 1.1 TH/MM3 (1.0-4.8); MEAN CELL VOLUME 83.3 FL (80.0-100.0); MEAN CORPUSCULAR HEMOGLOBIN 28.4 PG (27.0-34.0); MEAN CORPUSCULAR HGB CONC 34.1 % (32.0-36.0); MONO % 7.6 % (0.0-8.0); NEUT % 85.7 % (16.0-70.0); PLATELET COUNT 159 TH/MM3 (150-450); RED BLOOD COUNT 4.13 MIL/MM3 (4.50-5.90); RED CELL DISTRIBUTION WIDTH 13.1 % (11.6-17.2); WHITE BLOOD COUNT 17.2 TH/MM3 (4.0-11.0)
[2017-09-11 10:39] LABS: ANION GAP 13 MEQ/L (5-15); AST (GOT) 116 U/L (15-37); BLOOD UREA NITROGEN 14 MG/DL (7-18); CHLORIDE 96 MEQ/L (98-107); GLOMERULAR FILTRATION RATE 95 ML/MIN (>89); POTASSIUM 3.1 MEQ/L (3.5-5.1); SODIUM (NA) 133 MEQ/L (136-145)
[2017-09-11 10:40] LABS: ALT (GPT) 92 U/L (12-78)
[2017-09-11 10:42] LABS: ALKALINE PHOSPHATASE 123 U/L (45-117); HDL CHOLESTEROL 13.1 MG/DL (40.0-60.0); LDL CHOLESTEROL 57 MG/DL (0-99); TOTAL BILIRUBIN ADULT 0.8 MG/DL (0.2-1.0)
[2017-09-11] MEDS ORDERED: POTASSIUM BICARBONATE 25 MEQ EFFERVESCENT TAB PO ONE (15:45)
[2017-09-11] MEDS: LEVOFLOXACIN 500 MG PREMIX INJ 100 ML IV SCH (16:05)
[2017-09-11] MEDS: NS + KCL 20 MEQ INJ 1,000 ML IV SCH (18:17)
[2017-09-11] MEDS ORDERED: cefTRIAXone INJ 1,000 MG in SODIUM CHLORIDE 0.9% INJ 100 ML IV SCH (19:00)
--- NOTE | 2017-09-11 21:12 | RADRPT ---
EXAM DATE/TIME: 09/11/2017 19:21 [facility] COMPARISON: No previous studies available for comparison. INDICATIONS : Elevated lab values. MEDICAL HISTORY : Tobacco use. SURGICAL HISTORY : Hand surgery. ENCOUNTER: Initial ACUITY: 1 day PAIN SCORE: 4/10 LOCATION: Abdomen. MEASUREMENTS: LIVER: 20.6 cm length COMMON DUCT: 2 mm RIGHT KIDNEY: 12.7 x 6.0 x 4.6 cm LEFT KIDNEY: 12.2 x 5.7 x 5.7 cm SPLEEN: 12.4 cm length AORTA: 2.2cm maximal FINDINGS: Liver enlarged to 20.6 cm. No gallstones. Trace pericholecystic fluid. Spleen mildly enlarged to 12.4 cm. No free fluid. No biliary ductal dilatation. CONCLUSION: 1. Mild hepatic and splenic enlargement. No gallstones. No biliary ductal dilatation. Amado Hale MD on September 11, 2017 at 21:08 Board Certified Radiologist. This report was verified electronically.
[2017-09-11] MEDS: PRAVASTATIN SOD 40 MG TAB PO SCH (21:20)
[2017-09-12] VITALS: BP 124/61; PULSE 81; RESP 18; TEMP 98.8; O2SAT 95
[2017-09-12] MEDS: SODIUM CHLOR 0.9% 1000 ML INJ 1,000 ML IV SCH ×2 (00:15→14:33)
[2017-09-12 04:00] VITALS: BP 134/70; PULSE 67; RESP 18; TEMP 99; O2SAT 98
[2017-09-12] MEDS ORDERED: IBUPROFEN 400 MG TAB PO ONE (04:15)
[2017-09-12 07:53] LABS: ALT (GPT) 86 U/L (12-78); ANION GAP 6 MEQ/L (5-15); AST (GOT) 74 U/L (15-37); BICARBONATE 26.2 MEQ/L (21.0-32.0); BLOOD UREA NITROGEN 14 MG/DL (7-18); CHLORIDE 102 MEQ/L (98-107); GLOMERULAR FILTRATION RATE 137 ML/MIN (>89); POTASSIUM 3.2 MEQ/L (3.5-5.1); SODIUM (NA) 134 MEQ/L (136-145)
[2017-09-12 07:54] LABS: ALKALINE PHOSPHATASE 121 U/L (45-117); TOTAL BILIRUBIN ADULT 0.5 MG/DL (0.2-1.0)
[2017-09-12 08:00] VITALS: BP 120/74; PULSE 61; RESP 17; TEMP 97.7; O2SAT 98
[2017-09-12] MEDS: INSULIN ASPART SUPPLEMENTAL SCALE SQ SCH ×4 (08:00→21:00)
[2017-09-12] MEDS: ASPIRIN 81 MG CHEW TAB PO SCH (08:42)
[2017-09-12] MEDS: ENOXAPARIN SODIUM 30 MG/0.3 ML SYRINGE SQ SCH (08:43)
--- NOTE | 2017-09-12 08:44 | HHI.PR ---
Subjective Remarks low grade fever left upper extremity strength improving denies any headaches denies any urinary symptoms no diarrhea last evening complains of low back pain- non this am- relieved with Ibuprofen denies any substance abuse Objective Vitals Vital Signs Date Time Temp Pulse Resp B/P (MAP) Pulse Ox O2 Delivery O2 Flow Rate FiO2 09/12/17 08:00 97.7 61 17 120/74 (89) 98 09/12/17 04:00 99.0 67 18 134/70 (91) 98 09/12/17 00:00 98.8 81 18 124/61 (82) 95 09/11/17 20:00 100.1 87 20 120/70 (87) 97 09/11/17 16:00 98.1 93 18 145/75 (98) 100 09/11/17 12:00 97.8 80 17 116/67 (83) 98 09/11/17 11:09 97 21 I/O 09/11/17 09/11/17 09/11/17 09/12/17 09/12/17 09/12/17 07:00 15:00 23:00 07:00 15:00 23:00 Intake Total 480 ml Output Total 400 ml Balance -400 ml 480 ml Intake Oral 480 ml Output Urine Total 400 ml # Voids 2 8 # Bowel Movements 1 Result Diagram: 09/11/17 0815 09/12/17 0642 Imaging Last Impressions Carotid Artery Ultrasound 09/11/17 0000 Signed Impressions: Service Date/Time: Monday, September 11, 2017 08:10 - CONCLUSION: No hemodynamically significant stenosis. Vincent Lenz MD Abdomen Ultrasound 09/11/17 0000 Signed Impressions: Service Date/Time: Monday, September 11, 2017 19:21 - CONCLUSION: 1. Mild hepatic and splenic enlargement. No gallstones. No biliary ductal dilatation. Amado Hale MD Chest X-Ray 09/10/17 1643 Signed Impressions: Service Date/Time: Sunday, September 10, 2017 17:00 - CONCLUSION: No acute disease. Bimal Diallo MD Head Magnetic Resonance Angiography 09/10/17 0000 Signed Impressions: Service Date/Time: Sunday, September 10, 2017 21:01 - CONCLUSION: Normal examination for a patient of this age. Amado Hale MD Head CT 09/10/17 0000 Signed Impressions: Service Date/Time: Sunday, September 10, 2017 17:16 - CONCLUSION: 1. Questionable hypodensity in the mid right cerebral hemisphere adjacent to the sylvian fissure is seen on only one image and may be artifactual. This would not explain any right-sided symptoms the patient was experiencing. If there is a clinical concern, MRI of the brain could be performed for further characterization. 2. Minimal chronic sinus disease in one of the anterior right ethmoid air cells on the right. Kirby Trejo MD Brain MRI 09/10/17 0000 Signed Impressions: Service Date/Time: Sunday, September 10, 2017 21:01 - CONCLUSION: 1. Small scattered bilateral infarcts as above predominantly in the right MCA distribution. Amado Hale MD Objective Remarks awake and alert, oriented x3 speech clear anicteric, right eyes- slight lid lag mild shallow left nasolabial fold + carotid bruit left regular rhythm, no murmur abdomen soft, nontender extremities no calf swelling or tenderness no tenderness on palpation fo the spines grossly no sensory deficits 4+/5 left UE- Left LE- stronger- 5/5 gait- walked with IV pole- slightly wobbly A/P Problem List: (1) Sepsis ICD Code: A41.9 - Sepsis, unspecified organism Status: Acute (2) UTI (urinary tract infection) ICD Code: N39.0 - Urinary tract infection, site not specified Status: Acute (3) CVA (cerebral vascular accident) ICD Code: I63.9 - Cerebral infarction, unspecified (4) Tobacco abuse ICD Code: Z72.0 - Tobacco use Assessment and Plan 52 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 Statins. PT/OT daily Severe Sepsis due to Pseudomonas UTI- with initial lactic acid level of 2.3 US= no hydronephrosis by report low grade fever. FF final sensitivity on IV Levaquin ID consult.- concern for possible ? Endocarditis Echo pending + Carotid bruit no significant stenosis on US Tobacco Abuse: Pt counselled. Ativan prn if needed. Cocaine +- discussed with him. Patient denies use. denies IVDU HYponatremia- - Na improved. TSH normal Hypokalemia- replace and ff Elevated LFTs- trending down US no biliary obstruction. HBsAg pending DVT Prophylaxis: on Lovenox Social work for d/c planning as needed. PT consult/OT consult/Speech therapy consult Incentive spirometry hourly Lovenox for DVT prophylaxis Problem Qualifiers (1) Sepsis: Qualified Codes: A41.9 - Sepsis, unspecified organism (2) UTI (urinary tract infection): Qualified Codes: N39.0 - Urinary tract infection, site not specified Flakito Magallon MD Sep 12, 2017 08:44
[2017-09-12] MEDS: SODIUM CHLORIDE 0.9% FLUSH 10 ML FLUSH IV FLUSH SCH ×2 (09:00→21:00)
[2017-09-12 10:55] LABS: HEMOGLOBIN A1a 1.1 %; HEMOGLOBIN A1b 1.8 %; HEMOGLOBIN Ao 85.5 %; HEMOGLOBIN LA1C 1.6 %; HEMOGLOBIN P3 3.8 %
--- NOTE | 2017-09-12 11:33 | HHI.PR ---
Review/Management Daily Summary 09/12 right upper ext ataxia less severe today alert and oriented anxious ambulating with tx pending echo Subjective Subjective Comments No acute events reported No headache No chest pain No dyspnea Active Medications Current Medications Medications (Trade) Dose Ordered Sig/Vikas Route Start Time Stop Time Status Last Admin (NS Flush) 2 ml BID IV FLUSH 09/10/17 21:00 09/10/17 23:44 (NS Flush) 2 ml UNSCH PRN IV FLUSH 09/10/17 19:45 Sodium Chloride 1,000 ml @ 70 mls/hr [id number] IV 09/10/17 19:39 09/11/17 15:24 (Vasotec Inj) 1.25 mg Q4H PRN IV PUSH 09/10/17 19:45 (Aspirin Chew) 162 mg DAILY PO 09/11/17 09:00 09/12/17 08:42 (Pravachol) 40 mg HS PO 09/10/17 21:00 09/11/17 21:20 (NovoLOG SUPPLEMENTAL SCALE) 1 ACHS SQ 09/10/17 21:00 09/11/17 21:19 (D50w (Vial) Inj) 50 ml UNSCH PRN IV PUSH 09/10/17 19:45 (Glucagon Inj) 1 mg UNSCH PRN OTHER 09/10/17 19:45 (Zofran Inj) 4 mg Q6H PRN IVP 09/10/17 19:45 (Dulcolax Supp) 10 mg DAILY PRN RECTAL 09/10/17 19:45 (Lovenox Inj) 30 mg Q24H SQ 09/11/17 09:00 09/12/17 08:43 Levofloxacin/ Dextrose 100 ml @ 100 mls/hr Q24H IV 09/11/17 16:00 09/11/17 16:05 Potassium Chloride/Sodium Chloride 1,000 ml @ 70 mls/hr [id number] IV 09/11/17 17:30 09/11/17 18:17 Cefepime HCl 2000 mg/Sodium Chloride 100 ml @ 200 mls/hr Q8H IV 09/12/17 11:00 Allergies Allergies Coded Allergies No Known Allergies (Verified Allergy, Unknown, 09/10/17) Exam I&O / VS Vital Signs Date Time Temp Pulse Resp B/P (MAP) Pulse Ox O2 Delivery O2 Flow Rate FiO2 09/12/17 08:00 97.7 61 17 120/74 (89) 98 09/12/17 04:00 99.0 67 18 134/70 (91) 98 09/12/17 00:00 98.8 81 18 124/61 (82) 95 09/11/17 20:00 100.1 87 20 120/70 (87) 97 09/11/17 16:00 98.1 93 18 145/75 (98) 100 09/11/17 12:00 97.8 80 17 116/67 (83) 98 Objective Radiology Results Last 48 hours Impressions Carotid Artery Ultrasound 09/11/17 0000 Signed Impressions: Service Date/Time: Monday, September 11, 2017 08:10 - CONCLUSION: No hemodynamically significant stenosis. Vincent Lenz MD Abdomen Ultrasound 09/11/17 0000 Signed Impressions: Service Date/Time: Monday, September 11, 2017 19:21 - CONCLUSION: 1. Mild hepatic and splenic enlargement. No gallstones. No biliary ductal dilatation. Amado Hale MD Chest X-Ray 09/10/17 1643 Signed Impressions: Service Date/Time: Sunday, September 10, 2017 17:00 - CONCLUSION: No acute disease. Bimal Diallo MD Micro and Labs Laboratory Tests Test 09/10/17 17:15 09/10/17 18:40 09/10/17 19:45 09/11/17 08:15 White Blood Count 15.9 TH/MM3 (4.0-11.0) 17.2 TH/MM3 (4.0-11.0) Neutrophils (%) (Auto) 85.8 % (16.0-70.0) 85.7 % (16.0-70.0) Lymphocytes (%) (Auto) 6.2 % (9.0-44.0) 6.5 % (9.0-44.0) Neutrophils # (Auto) 13.6 TH/MM3 (1.8-7.7) 14.8 TH/MM3 (1.8-7.7) Monocytes # (Auto) 1.2 TH/MM3 (0-0.9) 1.3 TH/MM3 (0-0.9) Toxic Granulation 1+ (NORMAL) Prothrombin Time 12.9 SEC (9.8-11.6) Random Glucose 130 MG/DL (74-106) Albumin 2.6 GM/DL (3.4-5.0) 2.3 GM/DL (3.4-5.0) Alkaline Phosphatase 132 U/L (45-117) 123 U/L (45-117) Aspartate Amino Transf (AST/SGOT) 90 U/L (15-37) 116 U/L (15-37) Sodium Level 128 MEQ/L (136-145) 133 MEQ/L (136-145) Chloride Level 91 MEQ/L (98-107) 96 MEQ/L (98-107) Estimat Glomerular Filtration Rate 75 ML/MIN (>89) Lactic Acid Level 2.3 mmol/L (0.4-2.0) Urine Protein 30 mg/dL (NEG-TRACE) Urine Occult Blood LARGE (NEG) Urine Urobilinogen 8.0 MG/DL (LESS THAN Urine RBC 12 /hpf (0-3) Urine Bacteria MOD /hpf (NONE) Urine Mucus FEW /lpf (OCC) Urine Cocaine Screen POS (NEG) Red Blood Count 4.13 MIL/MM3 (4.50-5.90) Hemoglobin 11.7 GM/DL (13.0-17.0) Hematocrit 34.4 % (39.0-51.0) Erythrocyte Sedimentation Rate 47 mm/hr (0-15) Calcium Level 8.1 MG/DL (8.5-10.1) Alanine Aminotransferase (ALT/SGPT) 92 U/L (12-78) Potassium Level 3.1 MEQ/L (3.5-5.1) Cholesterol Level 96 MG/DL (120-200) HDL Cholesterol 13.1 MG/DL (40.0-60.0) Test 09/12/17 06:42 Random Glucose 116 MG/DL (74-106) Total Protein 6.3 GM/DL (6.4-8.2) Albumin 2.1 GM/DL (3.4-5.0) Calcium Level 8.1 MG/DL (8.5-10.1) Alkaline Phosphatase 121 U/L (45-117) Aspartate Amino Transf (AST/SGOT) 74 U/L (15-37) Alanine Aminotransferase (ALT/SGPT) 86 U/L (12-78) Sodium Level 134 MEQ/L (136-145) Potassium Level 3.2 MEQ/L (3.5-5.1) Laboratory Tests Test 09/12/17 06:42 Blood Urea Nitrogen 14 Creatinine 0.62 Random Glucose 116 Total Protein 6.3 Albumin 2.1 Calcium Level 8.1 Alkaline Phosphatase 121 Aspartate Amino Transf (AST/SGOT) 74 Alanine Aminotransferase (ALT/SGPT) 86 Total Bilirubin 0.5 Sodium Level 134 Potassium Level 3.2 Chloride Level 102 Carbon Dioxide Level 26.2 Anion Gap 6 Estimat Glomerular Filtration Rate 137 Date/Time Source Procedure Growth Status 09/10/17 19:25 Blood Peripheral Aerobic Blood Culture - Preliminary Gram Negative Davis Resulted 09/10/17 19:25 Blood Peripheral Anaerobic Blood Culture - Preliminary NO GROWTH IN 2 DAYS Resulted 09/10/17 19:27 Nasal Washing Influenza Types A,B Antigen (SERENITY) - Final NEGATIVE FOR FLU A AND B ANTIGEN.... Complete 09/10/17 18:40 Urine Clean Catch Urine Culture - Preliminary Pseudomonas Species Resulted Boom Shrestha MD Sep 12, 2017 11:33
[2017-09-12 12:00] VITALS: BP 120/65; PULSE 69; RESP 18; TEMP 97.2; O2SAT 100
--- NOTE | 2017-09-12 12:38 | MB ---
cc: JEREMIAH ANTON MD, ALFEA DATE OF CONSULTATION: 09/12/2017 REASON FOR CONSULTATION: Pseudomonas sepsis, came in with CVA, right MCA. Positive cocaine but denies use. Questionable workup for endocarditis. REQUESTING PHYSICIAN Dr. Magallon. HISTORY OF PRESENT ILLNESS: The patient is a 52 year-old white male who presented to the emergency department on 09/10 with left arm weakness and slurred speech. This reportedly happened a day before he presented. The patient tells me that his legs also gave way and he was wobbly on his feet. In the emergency department, temperature was 100.7, white count of 15.9. Lactic acid level of 2.3. He was also noted to have left facial droop and his temperature in the emergency department miladis to 101.4. A CT of the head was performed and it showed questionable hypodensity in the right in the mid right cerebral hemisphere adjacent to the sylvian fissure. Subsequently an MRI of the brain was performed and it showed small scattered bilateral infarcts with a small lacunar infarct in the left frontal lobe and also infarct on the right MCA distribution. There was also noted to be a small infarct in the dorsal aspect of the mid brain. The patient was evaluated by neurology. Currently he is sitting up in a recliner chair next to his bed. He is in no acute distress. He just walked from the bathroom and was okay and was not having difficulty with ambulation. His speech is currently not fluid. He denies headache and he denies any chills. The patient had urine culture which came back showing pseudomonas species. Blood cultures were taken and both sets had Gram-negative rods with one identified as Pseudomonas aeruginosa. He reports to me that he has some urinary hesitancy but he has no dysuria or back pain, and he has not had any problems with the urine lately. Ultrasound of the abdomen showed mild hepatic enlargement. No gallstones. No biliary ductal dilatation. Carotid artery ultrasound showed no hemodynamically significant stenosis. The patient was recently seen at the [facility] emergency department for a laceration of the left eye on August 30, 2017. He denies any problems with the vision of the left eye or any drainage from the left eyelid. PAST MEDICAL HISTORY Unremarkable. ALLERGIES NO KNOWN DRUG ALLERGIES. MEDICATIONS 1. Levaquin 2. Cefepime started earlier today. 3. Aspirin. 4. Lovenox. 5. Pravachol. 6. Insulin. SOCIAL HISTORY The patient denies tobacco use. He states that he used to smoke in the past. However, he has the smell of tobacco on his breath. He denies alcohol use. He denies illicit drug use. States that he used to do drugs but has not done drugs in the year. However, his toxicology screen is positive for cocaine. 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 FAMILY HISTORY Noncontributory. REVIEW OF SYSTEMS General: Significant for fever. Denies chills. HEAD, EYES, EARS, NOSE, AND THROAT: Denies headache. Denies visual blurring or diplopia. Denies difficulty swallowing or soreness of his throat: Denies nasal drainage. Cardiovascular: Denies palpitation or chest pain. Respiratory: No cough or shortness of breath. Gastrointestinal: Denies nausea, vomiting, abdominal pain or diarrhea. Genitourinary: Denies dysuria. Hematopoietic: Denies easy bruising or bleeding. Musculoskeletal: Notes occasional pain in the right foot from a splinter injury. Neurologic: Notes tremors of the hands. Psychiatric: Denies mood changes. PHYSICAL EXAMINATION This is a disheveled male who looks much older than stated age. He is in no acute distress. Vital signs: Include temperature 97.7, BP 120/74, respirations 17, heart rate 61. HEENT: Head is atraumatic. Extraocular movements grossly intact. No icterus. The left eyelid has healed laceration. Oropharynx, poor dentition. Moist mucosa. No visible lesions. No thrush. Neck: Supple without adenopathy. Lungs: Decreased breath sounds but clear. Heart: Regular S1-S2 without audible murmurs, rubs or gallops. Abdomen: Bowel sounds present, soft, nontender. Rectal: Not performed. Extremities: No clubbing, cyanosis or edema. Skin: No rash. Neurological: Patient with weakness of the left hand and upper extremities and also tremulous upper extremities. Psych: The patient is calm and cooperative. LABORATORY DATA WBC 17.2, platelets 159, 85% neutrophils, hemoglobin 11.7, AST 74, ALT 86, alk phos 121, sodium 134. IMPRESSION 1. Sepsis. Positive blood cultures with Pseudomonas. Also the patient has positive urine culture with Pseudomonas. 2. Urinary tract infection due to Pseudomonas which is most likely the cause of sepsis, although the patient has little urinary symptoms. 3. Leukocytosis secondary to sepsis. 4. CVA and multiple blood-brain lesions. 5. Rule out endocarditis given the changes in the brain and the sepsis and also the patient has a negative carotid ultrasound. RECOMMENDATIONS 1. Continue cefepime which I started earlier today. 2. Continue Levaquin. 3. Follow the blood cultures and urine culture for sensitivity of the Pseudomonas. 4. Obtain 2-D echocardiogram if that has not yet been ordered. 5. Monitor temperature and white count. 6. Monitor clinical status Thank you this consultation. The patient's progress will be monitored and further recommendations will be given on follow up. Jeremiah Anton MD FD/JESUS /11:17 AM /12:14 PM
[2017-09-12] MEDS: CEFEPIME INJ 2,000 MG in SODIUM CHLORIDE 0.9% INJ 100 ML IV SCH ×2 (14:46→18:40)
[2017-09-12 16:00] VITALS: BP 111/64; PULSE 68; RESP 18; TEMP 97.6; O2SAT 100
[2017-09-12] MEDS: LEVOFLOXACIN 500 MG PREMIX INJ 100 ML IV SCH (17:03)
[2017-09-12] MEDS: NS + KCL 20 MEQ INJ 1,000 ML IV SCH ×2 (17:13→22:06)
[2017-09-12 20:00] VITALS: BP 134/76; PULSE 83; RESP 18; TEMP 97.9; O2SAT 100
[2017-09-12] MEDS: PRAVASTATIN SOD 40 MG TAB PO SCH (22:19)
[2017-09-12 23:06] LABS: AUTOMATED NEUTROPHIL # 12.8 TH/MM3 (1.8-7.7); BASOPHIL % 0.2 % (0.0-2.0); EOSINOPHIL # 0.1 TH/MM3 (0-0.4); EOSINOPHIL % 0.4 % (0.0-4.0); HEMATOCRIT 33.6 % (39.0-51.0); HEMO FLAGS DIFF FINAL; LYMPH % 11.7 % (9.0-44.0); LYMPHOCYTE # 1.9 TH/MM3 (1.0-4.8); MEAN CELL VOLUME 83.5 FL (80.0-100.0); MEAN CORPUSCULAR HEMOGLOBIN 28.4 PG (27.0-34.0); MONO % 6.4 % (0.0-8.0); NEUT % 81.3 % (16.0-70.0); PLATELET COUNT 213 TH/MM3 (150-450); RED BLOOD COUNT 4.03 MIL/MM3 (4.50-5.90); WHITE BLOOD COUNT 15.8 TH/MM3 (4.0-11.0)
[2017-09-13 00:39] VITALS: BP 118/62; PULSE 78; RESP 19; TEMP 98.2; O2SAT 97
[2017-09-13] MEDS: CEFEPIME INJ 2,000 MG in SODIUM CHLORIDE 0.9% INJ 100 ML IV SCH ×3 (03:10→19:27)
[2017-09-13] MEDS: SODIUM CHLOR 0.9% 1000 ML INJ 1,000 ML IV SCH ×2 (03:13→19:09)
[2017-09-13 04:00] VITALS: BP 130/78; PULSE 84; RESP 18; TEMP 98.8; O2SAT 97
[2017-09-13 08:00] VITALS: BP 119/75; PULSE 76; RESP 20; TEMP 97.7; O2SAT 99
[2017-09-13] MEDS: INSULIN ASPART SUPPLEMENTAL SCALE SQ SCH ×4 (08:00→20:00)
[2017-09-13] MEDS: ENOXAPARIN SODIUM 30 MG/0.3 ML SYRINGE SQ SCH (08:27)
[2017-09-13] MEDS: ASPIRIN 81 MG CHEW TAB PO SCH (08:29)
[2017-09-13] MEDS: SODIUM CHLORIDE 0.9% FLUSH 10 ML FLUSH IV FLUSH SCH ×2 (09:00→19:54)
--- NOTE | 2017-09-13 09:45 | HHI.PR ---
Subjective Remarks feeling better- strength improved speech clear denies any pain or any urinary symptoms no fever or chills Objective Vitals Vital Signs Date Time Temp Pulse Resp B/P (MAP) Pulse Ox O2 Delivery O2 Flow Rate FiO2 09/13/17 08:00 97.7 76 20 119/75 (90) 99 09/13/17 04:00 98.8 84 18 130/78 (95) 97 09/13/17 00:39 98.2 78 19 118/62 (80) 97 09/12/17 20:00 97.9 83 18 134/76 (95) 100 09/12/17 16:00 97.6 68 18 111/64 (80) 100 09/12/17 12:00 97.2 69 18 120/65 (83) 100 I/O 09/12/17 09/12/17 09/12/17 09/13/17 09/13/17 09/13/17 07:00 15:00 23:00 07:00 15:00 23:00 Intake Total 1680 ml Output Total 975 ml Balance 1680 ml -975 ml Intake Oral 480 ml IV Total 1200 ml Output Urine Total 975 ml # Voids 8 Result Diagram: 09/12/17 2212 09/12/17 0642 Imaging Last Impressions Carotid Artery Ultrasound 09/11/17 0000 Signed Impressions: Service Date/Time: Monday, September 11, 2017 08:10 - CONCLUSION: No hemodynamically significant stenosis. Vincent Lenz MD Abdomen Ultrasound 09/11/17 0000 Signed Impressions: Service Date/Time: Monday, September 11, 2017 19:21 - CONCLUSION: 1. Mild hepatic and splenic enlargement. No gallstones. No biliary ductal dilatation. Amado Hale MD Chest X-Ray 09/10/17 1643 Signed Impressions: Service Date/Time: Sunday, September 10, 2017 17:00 - CONCLUSION: No acute disease. Bimal Diallo MD Head Magnetic Resonance Angiography 09/10/17 0000 Signed Impressions: Service Date/Time: Sunday, September 10, 2017 21:01 - CONCLUSION: Normal examination for a patient of this age. Amado Hale MD Head CT 09/10/17 0000 Signed Impressions: Service Date/Time: Sunday, September 10, 2017 17:16 - CONCLUSION: 1. Questionable hypodensity in the mid right cerebral hemisphere adjacent to the sylvian fissure is seen on only one image and may be artifactual. This would not explain any right-sided symptoms the patient was experiencing. If there is a clinical concern, MRI of the brain could be performed for further characterization. 2. Minimal chronic sinus disease in one of the anterior right ethmoid air cells on the right. Kirby Trejo MD Brain MRI 09/10/17 0000 Signed Impressions: Service Date/Time: Sunday, September 10, 2017 21:01 - CONCLUSION: 1. Small scattered bilateral infarcts as above predominantly in the right MCA distribution. Amado Hale MD Objective Remarks awake and alert, oriented x3 speech clear anicteric, right eyes- slight lid lag mild shallow left nasolabial fold + carotid bruit left regular rhythm, no murmur abdomen soft, nontender extremities no calf swelling or tenderness no tenderness on palpation fo the spines grossly no sensory deficits strength almost equal- gait- - seen with PT- needs contact guard assist- tends to lean slightly on the left A/P Problem List: (1) Sepsis ICD Code: A41.9 - Sepsis, unspecified organism Status: Acute (2) UTI (urinary tract infection) ICD Code: N39.0 - Urinary tract infection, site not specified Status: Acute (3) CVA (cerebral vascular accident) ICD Code: I63.9 - Cerebral infarction, unspecified (4) Tobacco abuse ICD Code: Z72.0 - Tobacco use Assessment and Plan 52 years old male right handed male, 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 Statins. PT/OT daily Severe Pseudomonas Sepsis: secondary to UTI- with eelvated lactic acid level of 2.3 on admission US= no hydronephrosis by report on IV Levaquin + Cefepime ID ff - concern for possible ? Endocarditis Echo pending + Carotid bruit no significant stenosis on US Tobacco Abuse: Pt counselled. Ativan prn if needed. Cocaine +- discussed with him. Patient denies use. denies IVDU HYponatremia- - Na improved. TSH normal Hypokalemia- replace and ff recheck electrolytes Elevated LFTs- trending down US no biliary obstruction. HBsAg pending DVT Prophylaxis: on Lovenox. Increase activity Social work for d/c planning as needed. PT consult/OT consult/Speech therapy consult Incentive spirometry hourly Lovenox for DVT prophylaxis Problem Qualifiers (1) Sepsis: Qualified Codes: A41.9 - Sepsis, unspecified organism (2) UTI (urinary tract infection): Qualified Codes: N39.0 - Urinary tract infection, site not specified Flakiot Magallon MD Sep 13, 2017 09:45
[2017-09-13 11:43] LABS: AUTOMATED NEUTROPHIL # 11.2 TH/MM3 (1.8-7.7); BASOPHIL % 0.2 % (0.0-2.0); EOSINOPHIL # 0.1 TH/MM3 (0-0.4); EOSINOPHIL % 0.7 % (0.0-4.0); HEMATOCRIT 33.3 % (39.0-51.0); HEMO FLAGS DIFF FINAL; LYMPH % 12.4 % (9.0-44.0); LYMPHOCYTE # 1.7 TH/MM3 (1.0-4.8); MEAN CELL VOLUME 82.8 FL (80.0-100.0); MEAN CORPUSCULAR HEMOGLOBIN 28.4 PG (27.0-34.0); MEAN CORPUSCULAR HGB CONC 34.3 % (32.0-36.0); MONO % 7.1 % (0.0-8.0); NEUT % 79.6 % (16.0-70.0); PLATELET COUNT 238 TH/MM3 (150-450); RED BLOOD COUNT 4.02 MIL/MM3 (4.50-5.90); RED CELL DISTRIBUTION WIDTH 13.3 % (11.6-17.2); WHITE BLOOD COUNT 14.1 TH/MM3 (4.0-11.0)
[2017-09-13 12:00] VITALS: BP 125/71; PULSE 73; RESP 20; TEMP 97.5; O2SAT 99
[2017-09-13 12:07] LABS: ALT (GPT) 102 U/L (12-78); ANION GAP 9 MEQ/L (5-15); AST (GOT) 68 U/L (15-37); BLOOD UREA NITROGEN 11 MG/DL (7-18); CHLORIDE 104 MEQ/L (98-107); GLOMERULAR FILTRATION RATE 114 ML/MIN (>89); POTASSIUM 3.2 MEQ/L (3.5-5.1); SODIUM (NA) 139 MEQ/L (136-145)
[2017-09-13 12:09] LABS: ALKALINE PHOSPHATASE 112 U/L (45-117); TOTAL BILIRUBIN ADULT 0.3 MG/DL (0.2-1.0)
[2017-09-13] MEDS: NS + KCL 20 MEQ INJ 1,000 ML IV SCH (12:24)
--- NOTE | 2017-09-13 15:10 | ECHRPT ---
Indication: R/O ENDOCARDITIS CONCLUSIONS Normal left ventricular size. Mild concentric left ventricular hypertrophy. The left ventricular systolic function is normal (EF 60%). Trace mitral valve regurgitation. Cannot rule out a bicuspid aortic valve or trileaflet valve with partially fused commissure. Aortic valve sclerosis is present. [id number] aortic valve regurgitation. Mild aortic stenosis. There is mild tricuspid valve regurgitation. The estimated pulmonary arterial pressure is 29 mmHg. BP: 118 / 62 HR: 78 Rhythm: Sinus MEASUREMENTS (Male / Female) Normal Values Technical Quality:Fair 2D ECHO LV Diastolic Diameter PLAX 5.8 cm 4.2 - 5.9 / 3.9 - 5.3 cm LV Systolic Diameter PLAX 3.6 cm IVS Diastolic Thickness 1.0 cm 0.6 - 1.0 / 0.6 - 0.9 cm LVPW Diastolic Thickness 1.0 cm 0.6 - 1.0 / 0.6 - 0.9 cm LV Relative Wall Thickness 0.4 RV Internal Dim ED PLAX 2.8 cm LVOT Diameter 2.4 cm Aortic Root Diameter 3.7 cm LA Systolic Diameter LX 3.1 cm 3.0 - 4.0 / 2.7 - 3.8 cm DOPPLER AV Peak Velocity 273.0 cm/s AV Peak Gradient 29.8 mmHg AV Mean Gradient 15.0 mmHg AV Velocity Time Integral 53.0 cm AI Peak Velocity 521.0 cm/s AI Peak Gradient 108.6 mmHg AI Pressure Half Time 444.0 ms LVOT Peak Velocity 103.0 cm/s LVOT Peak Gradient 4.2 mmHg LVOT Velocity Time Integral 20.7 cm LVOT Cardiac Index 3601.8 cm/minm AV Area Cont Eq vti 1.8 cm AV Area Cont Eq pk 1.7 cm Mitral E Point Velocity 72.6 cm/s Mitral A Point Velocity 58.2 cm/s Mitral E to A Ratio 1.2 LV E' Lateral Velocity 10.5 cm/s Mitral E to LV E' Lateral Ratio 6.9 LV E' Septal Velocity 8.1 cm/s Mitral E to LV E' Septal Ratio 9.0 TR Peak Velocity 217.0 cm/s TR Peak Gradient 18.8 mmHg Right Atrial Pressure 10.0 mmHg Pulmonary Artery Systolic Pressu 28.8 mmHg Right Ventricular Systolic Press 28.8 mmHg PV Peak Velocity 53.4 cm/s PV Peak Gradient 1.1 mmHg FINDINGS LEFT VENTRICLE Normal left ventricular size. Mild concentric left ventricular hypertrophy. The left ventricular systolic function is normal (EF 60%). RIGHT VENTRICLE Normal right ventricular size and systolic function. LEFT ATRIUM The left atrial size is normal. RIGHT ATRIUM The right atrial size is normal. ATRIAL SEPTUM Normal atrial septal thickness without atrial level shunting by limited color doppler interrogation. AORTA The aortic root and proximal ascending aorta are normal in size on limited imaging. MITRAL VALVE Trace mitral valve regurgitation. AORTIC VALVE Cannot rule out a bicuspid aortic valve or trileaflet valve with partially fused commissure. Aortic valve sclerosis is present. [id number] aortic valve regurgitation. Aortic valve area is 1.8 cm. Aortic valve mean gradient is 15 mmHg. TRICUSPID VALVE There is mild tricuspid valve regurgitation. The estimated pulmonary arterial pressure is 28.8 mmHg. PULMONARY VALVE No pulmonary valve regurgitation or stenosis. VESSELS The inferior vena cava is normal in size. PERICARDIUM No pericardial effusion. Leslie Rg MD, FACC (Electronically Signed) Final Date:13 September 2017 15:09
--- NOTE | 2017-09-13 15:31 | HHI.IDPN ---
Note Infectious Disease Note Patient feels okay. Notes back pain which he attributes to not moving and also the current mattress. Afebrile. Blood and urine culture has pseudomonas. Patient is a 52 year-old white male who presented to the emergency department on 09/10 with left arm weakness and slurred speech. PAST MEDICAL HISTORY Unremarkable. ALLERGIES NO KNOWN DRUG ALLERGIES. MEDICATIONS 1. Continue Levaquin 2. Continue Cefepime. SOCIAL HISTORY The patient denies tobacco use. He states that he used to smoke in the past. However, he has the smell of tobacco on his breath. He denies alcohol use. He denies illicit drug use. States that he used to do drugs but has not done drugs in the year. However, his toxicology screen is positive for cocaine. OBJECTIVE: Vital Signs Date Time Temp Pulse Resp B/P (MAP) Pulse Ox O2 Delivery O2 Flow Rate FiO2 09/13/17 12:00 97.5 73 20 125/71 (89) 99 09/13/17 08:00 97.7 76 20 119/75 (90) 99 09/13/17 04:00 98.8 84 18 130/78 (95) 97 09/13/17 00:39 98.2 78 19 118/62 (80) 97 09/12/17 20:00 97.9 83 18 134/76 (95) 100 09/12/17 16:00 97.6 68 18 111/64 (80) 100 Laboratory Tests Test 09/12/17 22:12 09/13/17 11:20 White Blood Count 15.8 TH/MM3 14.1 TH/MM3 Red Blood Count 4.03 MIL/MM3 4.02 MIL/MM3 Hemoglobin 11.4 GM/DL 11.4 GM/DL Hematocrit 33.6 % 33.3 % Mean Corpuscular Volume 83.5 FL 82.8 FL Mean Corpuscular Hemoglobin 28.4 PG 28.4 PG Mean Corpuscular Hemoglobin Concent 34.0 % 34.3 % Red Cell Distribution Width 13.0 % 13.3 % Platelet Count 213 TH/MM3 238 TH/MM3 Mean Platelet Volume 9.7 FL 8.8 FL Neutrophils (%) (Auto) 81.3 % 79.6 % Lymphocytes (%) (Auto) 11.7 % 12.4 % Monocytes (%) (Auto) 6.4 % 7.1 % Eosinophils (%) (Auto) 0.4 % 0.7 % Basophils (%) (Auto) 0.2 % 0.2 % Neutrophils # (Auto) 12.8 TH/MM3 11.2 TH/MM3 Lymphocytes # (Auto) 1.9 TH/MM3 1.7 TH/MM3 Monocytes # (Auto) 1.0 TH/MM3 1.0 TH/MM3 Eosinophils # (Auto) 0.1 TH/MM3 0.1 TH/MM3 Basophils # (Auto) 0.0 TH/MM3 0.0 TH/MM3 CBC Comment DIFF FINAL DIFF FINAL Differential Comment Laboratory Tests Test 09/12/17 06:42 09/13/17 11:23 Blood Urea Nitrogen 14 MG/DL 11 MG/DL Creatinine 0.62 MG/DL 0.73 MG/DL Random Glucose 116 MG/DL 111 MG/DL Total Protein 6.3 GM/DL 6.5 GM/DL Albumin 2.1 GM/DL 2.2 GM/DL Calcium Level 8.1 MG/DL 7.9 MG/DL Alkaline Phosphatase 121 U/L 112 U/L Aspartate Amino Transf (AST/SGOT) 74 U/L 68 U/L Alanine Aminotransferase (ALT/SGPT) 86 U/L 102 U/L Total Bilirubin 0.5 MG/DL 0.3 MG/DL Sodium Level 134 MEQ/L 139 MEQ/L Potassium Level 3.2 MEQ/L 3.2 MEQ/L Chloride Level 102 MEQ/L 104 MEQ/L Carbon Dioxide Level 26.2 MEQ/L 26.0 MEQ/L Anion Gap 6 MEQ/L 9 MEQ/L Estimat Glomerular Filtration Rate 137 ML/MIN 114 ML/MIN Microbiology Date/Time Source Procedure Growth Status 09/12/17 22:12 Blood Peripheral Aerobic Blood Culture - Preliminary NO GROWTH IN 1 DAY Resulted 09/12/17 22:12 Blood Peripheral Anaerobic Blood Culture - Preliminary NO GROWTH IN 1 DAY Resulted 09/12/17 22:07 Blood Peripheral Aerobic Blood Culture - Preliminary NO GROWTH IN 1 DAY Resulted 09/12/17 22:07 Blood Peripheral Anaerobic Blood Culture - Preliminary NO GROWTH IN 1 DAY Resulted 09/10/17 19:25 Blood Peripheral Aerobic Blood Culture - Final Pseudomonas Aeruginosa Resulted 09/10/17 19:25 Blood Peripheral Anaerobic Blood Culture - Preliminary NO GROWTH IN 3 DAYS Resulted 09/10/17 17:15 Blood Peripheral Aerobic Blood Culture - Final Pseudomonas Aeruginosa Resulted 12/15/17 17:15 Blood Peripheral Anaerobic Blood Culture - Preliminary NO GROWTH IN 3 DAYS Resulted 09/10/17 19:27 Nasal Washing Influenza Types A,B Antigen (SERENITY) - Final NEGATIVE FOR FLU A AND B ANTIGEN.... Complete 09/10/17 18:40 Urine Clean Catch Urine Culture - Final Pseudomonas Aeruginosa Complete IMAGING: Carotid Artery Ultrasound 09/11/17 0000 Signed Impressions: Service Date/Time: Monday, September 11, 2017 08:10 - CONCLUSION: No hemodynamically significant stenosis. Vincent Lenz MD Abdomen Ultrasound 09/11/17 0000 Signed Impressions: Service Date/Time: Monday, September 11, 2017 19:21 - CONCLUSION: 1. Mild hepatic and splenic enlargement. No gallstones. No biliary ductal dilatation. Amado Hale MD Chest X-Ray 09/10/17 1643 Signed Impressions: Service Date/Time: Sunday, September 10, 2017 17:00 - CONCLUSION: No acute disease. Bimal Diallo MD Head Magnetic Resonance Angiography 09/10/17 0000 Signed Impressions: Service Date/Time: Sunday, September 10, 2017 21:01 - CONCLUSION: Normal examination for a patient of this age. Amado Hale MD Head CT 09/10/17 0000 Signed Impressions: Service Date/Time: Sunday, September 10, 2017 17:16 - CONCLUSION: 1. Questionable hypodensity in the mid right cerebral hemisphere adjacent to the sylvian fissure is seen on only one image and may be artifactual. This would not explain any right-sided symptoms the patient was experiencing. If there is a clinical concern, MRI of the brain could be performed for further characterization. 2. Minimal chronic sinus disease in one of the anterior right ethmoid air cells on the right. Kirby Trejo MD Brain MRI 09/10/17 0000 Signed Impressions: Service Date/Time: Sunday, September 10, 2017 21:01 - CONCLUSION: 1. Small scattered bilateral infarcts as above predominantly in the right MCA distribution. Amado Hale MD PHYSICAL EXAMINATION No acute distress. HEENT: Head is atraumatic. Extraocular movements grossly intact. No icterus. The left eyelid has healed laceration. Oropharynx, poor dentition. Moist mucosa. No visible lesions. No thrush. Neck: Supple without adenopathy. Lungs: Decreased breath sounds. Heart: Regular S1-S2 without audible murmurs, rubs or gallops. Abdomen: Bowel sounds present, soft, nontender. Rectal: Not performed. Extremities: No clubbing, cyanosis or edema. Skin: No rash. Neurological: Patient with weakness of the left hand and upper extremities and also tremulous upper extremities. Psych: The patient is calm and cooperative. IMPRESSION 1. Sepsis. Pseudomonas. Also the patient has positive urine culture with Pseudomonas. 2. Urinary tract infection due to Pseudomonas. 3. Leukocytosis secondary to sepsis. Improving. 4. CVA and multiple brain lesions. 5. Rule out endocarditis given the changes in the brain and the sepsis and also the patient has a negative carotid ultrasound. RECOMMENDATIONS 1. Continue cefepime. 2. Continue Levaquin. 3. NOHELIA to evaluate for endocarditis. 4. Monitor temperature and white count. 5. Monitor clinical status. 6. Follow repeat blood culture. Jared Roberson MD Sep 13, 2017 15:31
[2017-09-13 16:00] VITALS: BP 132/73; PULSE 72; RESP 20; TEMP 98.4; O2SAT 100
--- NOTE | 2017-09-13 16:28 | HM ---
Date Performed: 09/11/2017 Time Performed: 09:31:00 HOOKUP DATE: 09/11/17 09:31:00 AM Sat ANALYSIS START TIME: 09/11/2017 9:36:00 AM ANALYSIS END TIME: 09/12/2017 9:39:59 AM PATIENT AGE: 52 PATIENT HEIGHT: 73 PATIENT WEIGHT: 176 DRUG LIST: ROOM 1514 PATIENT DIAGNOSIS: MULTIINFARCT CVA TEST NARRATIVE: The patient's average heart rate was 79 BPM. Heart rates greater than 120 B PM were noted < 1% of the time. Heart rates less than 50 BPM were noted < 1% of the time. No luis ses exceeding 2.0 seconds were noted. 10 ventricular ectopics, which represented < 1% of the tota l beat count, were noted. The highest ventricular ectopic frequency occurred from 03:00 PM to 04:00 PM Sat. During this time 2 VE(s) occurred. Ventricular ectopics were observed as 10 isolated beat(s ) only. No couplets or runs were noted. 20 supraventricular ectopics, which represented < 1% of the total beat count, were noted. The highest supraventricular ectopic frequency occurred from 10:00 PM to 11:00 PM Sat. During this time 10 SVE(s) occurred. No episodes of ST depression (defined as -1.0 mm or more) were noted in channel 1. No episodes of ST depression (defined as -1.0 mm or mor e) were noted in channel 2. No episodes of ST depression (defined as -1.0 mm or more) were noted in channel 3. NO DIARY WAS RETURNED BY PATIENT TEST INTERPRETATION: Minimum heart rate 50, maximum heart rate 152, average heart rate 79. Patie nt was monitored for 24 hours. There were 10 PVCs over a 24 hour period, and 4 PACs and two runs of P ACs, longest 10 beats at 152 bpm. Conclusions No atrial fibrillation. Runs of PACs as noted above. M aximum 10-beat run. Signed by : Willy Pelletier
[2017-09-13] MEDS: LEVOFLOXACIN 500 MG PREMIX INJ 100 ML IV SCH (17:42)
--- NOTE | 2017-09-13 18:53 | MB ---
cc: LESLIE RG DATE OF CONSULTATION 09/13/2017 HISTORY Mr. Holcomb is a 52-year-old white male who presented on 09/10 with left arm weakness and slurred speech. He has been diagnosed with Pseudomonas sepsis. He was positive for cocaine. He is being evaluated for endocarditis. He denies any chest pain or shortness of breath. He is angry since he thinks he has been in the hospital for prolonged period. A transesophageal echocardiogram is now requested to evaluate for endocarditis. PAST MEDICAL HISTORY Negative for hypertension, dyslipidemia or diabetes mellitus, coronary artery disease, cerebrovascular accident. MEDICATIONS Include: 1. Cefepime. 2. Levaquin. 3. Aspirin. 4. Lovenox. 5. Pravastatin. ALLERGIES NONE. 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 He used to smoke in the past. Denies smoking at this time although he smells of tobacco. He denies any alcohol or using drugs. His toxicology scan was positive for cocaine. FAMILY HISTORY Negative for heart disease. REVIEW OF SYSTEMS Otherwise negative. PHYSICAL EXAMINATION VITAL SIGNS: Blood pressure 132/73, pulse 72 and regular. HEENT: Negative. 2+ carotid upstrokes. No bruits. LUNGS: Clear. HEART: Regular with no murmur, gallop or rub. ABDOMEN: Soft. No bruits. EXTREMITIES: Without edema. 2+ distal pulses. NEUROLOGIC: Examination is grossly nonfocal. Holter monitor showed sinus rhythm. Occasional PACs and PVCs. LABORATORY DATA Hemoglobin 11.4. Potassium 3.2, creatinine 0.7, AST 68, ALT 102. DIAGNOSES 1. Pseudomonas sepsis. 2. Urinary tract infection. 3. CVA with multiple brain lesions. DISPOSITION Mr. Holcomb's echo showed preserved left ventricular systolic function, mild aortic stenosis and mitral regurgitation. There is no evidence of valvular vegetations. He will be scheduled for transesophageal echocardiogram in the near future to evaluate for endocarditis. We will continue antibiotic therapy as per infectious disease. Leslie Rg MD OBlaise/KK /6:05 PM /6:33 PM [facility]ERYamilex
[2017-09-13] MEDS: PRAVASTATIN SOD 40 MG TAB PO SCH (20:00)
[2017-09-13 20:37] VITALS: BP 145/80; PULSE 81; RESP 17; TEMP 97.6; O2SAT 100
[2017-09-14 00:16] VITALS: BP 136/78; PULSE 73; RESP 17; TEMP 98.7; O2SAT 100
[2017-09-14] MEDS: NS + KCL 20 MEQ INJ 1,000 ML IV SCH (02:42)
[2017-09-14] MEDS: CEFEPIME INJ 2,000 MG in SODIUM CHLORIDE 0.9% INJ 100 ML IV SCH ×3 (03:10→18:27)
[2017-09-14 05:00] VITALS: BP 129/67; PULSE 74; RESP 17; TEMP 97.6; O2SAT 100
[2017-09-14 08:00] VITALS: BP 129/74; PULSE 76; RESP 17; TEMP 97.5; O2SAT 100
[2017-09-14] MEDS: ENOXAPARIN SODIUM 30 MG/0.3 ML SYRINGE SQ SCH (08:36)
[2017-09-14] MEDS: SODIUM CHLORIDE 0.9% FLUSH 10 ML FLUSH IV FLUSH SCH ×2 (08:36→21:00)
[2017-09-14] MEDS: INSULIN ASPART SUPPLEMENTAL SCALE SQ SCH ×4 (08:36→21:00)
[2017-09-14] MEDS: ASPIRIN 81 MG CHEW TAB PO SCH (08:36)
[2017-09-14] MEDS: SODIUM CHLOR 0.9% 1000 ML INJ 1,000 ML IV SCH (09:27)
--- NOTE | 2017-09-14 11:32 | HHI.PR ---
Subjective Remarks awake and alert no complains left UE weakness- improved gait steady Objective Vitals Vital Signs Date Time Temp Pulse Resp B/P (MAP) Pulse Ox O2 Delivery O2 Flow Rate FiO2 09/14/17 08:00 97.5 76 17 129/74 (92) 100 09/14/17 05:00 97.6 74 17 129/67 (87) 100 09/14/17 00:16 98.7 73 17 136/78 (97) 100 09/13/17 20:37 97.6 81 17 145/80 (101) 100 09/13/17 16:00 98.4 72 20 132/73 (92) 100 09/13/17 12:00 97.5 73 20 125/71 (89) 99 I/O 09/13/17 09/13/17 09/13/17 09/14/17 09/14/17 09/14/17 07:00 15:00 23:00 07:00 15:00 23:00 Intake Total 360 ml 340 ml Output Total 975 ml 200 ml Balance -975 ml 160 ml 340 ml Intake Oral 360 ml 240 ml IV Total 100 ml Output Urine Total 975 ml 200 ml # Voids 3 2 # Bowel Movements 1 Result Diagram: 09/13/17 1120 09/13/17 1123 Imaging Last Impressions Carotid Artery Ultrasound 09/11/17 0000 Signed Impressions: Service Date/Time: Monday, September 11, 2017 08:10 - CONCLUSION: No hemodynamically significant stenosis. Vincent Lenz MD Abdomen Ultrasound 09/11/17 0000 Signed Impressions: Service Date/Time: Monday, September 11, 2017 19:21 - CONCLUSION: 1. Mild hepatic and splenic enlargement. No gallstones. No biliary ductal dilatation. Amado Hale MD Chest X-Ray 09/10/17 1643 Signed Impressions: Service Date/Time: Sunday, September 10, 2017 17:00 - CONCLUSION: No acute disease. Bimal Diallo MD Head Magnetic Resonance Angiography 09/10/17 0000 Signed Impressions: Service Date/Time: Sunday, September 10, 2017 21:01 - CONCLUSION: Normal examination for a patient of this age. Amado Hale MD Head CT 09/10/17 0000 Signed Impressions: Service Date/Time: Sunday, September 10, 2017 17:16 - CONCLUSION: 1. Questionable hypodensity in the mid right cerebral hemisphere adjacent to the sylvian fissure is seen on only one image and may be artifactual. This would not explain any right-sided symptoms the patient was experiencing. If there is a clinical concern, MRI of the brain could be performed for further characterization. 2. Minimal chronic sinus disease in one of the anterior right ethmoid air cells on the right. Kirby Trejo MD Brain MRI 09/10/17 0000 Signed Impressions: Service Date/Time: Sunday, September 10, 2017 21:01 - CONCLUSION: 1. Small scattered bilateral infarcts as above predominantly in the right MCA distribution. Amado Hale MD Objective Remarks awake and alert, oriented x3 speech clear anicteric, right eyes- slight lid lag mild shallow left nasolabial fold + carotid bruit left regular rhythm, no murmur abdomen soft, nontender extremities no calf swelling or tenderness no tenderness on palpation fo the spines grossly no sensory deficits strength almost equal- gait- - on exam this am- steady unassisted A/P Problem List: (1) Sepsis ICD Code: A41.9 - Sepsis, unspecified organism Status: Acute (2) UTI (urinary tract infection) ICD Code: N39.0 - Urinary tract infection, site not specified Status: Acute (3) CVA (cerebral vascular accident) ICD Code: I63.9 - Cerebral infarction, unspecified (4) Tobacco abuse ICD Code: Z72.0 - Tobacco use Assessment and Plan 52 years old male right handed male, 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 Statins. PT/OT daily Severe Pseudomonas Sepsis: secondary to UTI- with eelvated lactic acid level of 2.3 on admission US= no hydronephrosis by report on IV Levaquin + Cefepime for NOHELIA -cardiology on board + Carotid bruit no significant stenosis on US Tobacco Abuse: Pt counselled. Ativan prn if needed. Cocaine +- discussed with him. Patient denies use. denies IVDU HYponatremia- - Na improved. TSH normal Hypokalemia- replace and ff recheck electrolytes now Elevated LFTs- trending down US no biliary obstruction. HBsAg pending DVT Prophylaxis: on Lovenox. Increase activity Social work for d/c planning as needed. PT consult/OT consult/Speech therapy consult Incentive spirometry hourly Lovenox for DVT prophylaxis Problem Qualifiers (1) Sepsis: Qualified Codes: A41.9 - Sepsis, unspecified organism (2) UTI (urinary tract infection): Qualified Codes: N39.0 - Urinary tract infection, site not specified Flakito Magallon MD Sep 14, 2017 11:32
[2017-09-14 12:00] VITALS: BP 130/67; PULSE 75; RESP 18; TEMP 97.5; O2SAT 100
[2017-09-14 16:00] VITALS: BP 123/65; PULSE 76; RESP 18; TEMP 97.7; O2SAT 100
[2017-09-14] MEDS: LEVOFLOXACIN 500 MG PREMIX INJ 100 ML IV SCH (16:00)
[2017-09-14 16:14] LABS: BICARBONATE 25.4 MEQ/L (21.0-32.0); POTASSIUM 3.5 MEQ/L (3.5-5.1)
--- NOTE | 2017-09-14 20:02 | PD.CARD.PN ---
Subjective Subjective Remarks No CP or SOB Objective Medications Current Medications Medications (Trade) Dose Ordered Sig/Vikas Route Start Time Stop Time Status Last Admin (NS Flush) 2 ml BID IV FLUSH 09/10/17 21:00 09/14/17 08:36 (NS Flush) 2 ml UNSCH PRN IV FLUSH 09/10/17 19:45 Sodium Chloride 1,000 ml @ 70 mls/hr [id number] IV 09/10/17 19:39 09/11/17 15:24 (Vasotec Inj) 1.25 mg Q4H PRN IV PUSH 09/10/17 19:45 (Aspirin Chew) 162 mg DAILY PO 09/11/17 09:00 09/14/17 08:36 (Pravachol) 40 mg HS PO 09/10/17 21:00 09/13/17 20:00 (NovoLOG SUPPLEMENTAL SCALE) 1 ACHS SQ 09/10/17 21:00 09/14/17 17:45 (D50w (Vial) Inj) 50 ml UNSCH PRN IV PUSH 09/10/17 19:45 (Glucagon Inj) 1 mg UNSCH PRN OTHER 09/10/17 19:45 (Zofran Inj) 4 mg Q6H PRN IVP 09/10/17 19:45 (Dulcolax Supp) 10 mg DAILY PRN RECTAL 09/10/17 19:45 (Lovenox Inj) 30 mg Q24H SQ 09/11/17 09:00 09/14/17 08:36 Levofloxacin/ Dextrose 100 ml @ 100 mls/hr Q24H IV 09/11/17 16:00 09/14/17 16:00 Cefepime HCl 2000 mg/Sodium Chloride 100 ml @ 200 mls/hr Q8H IV 09/12/17 11:00 09/14/17 18:27 (KCl) 20 meq DAILY PO 09/14/17 19:44 Vital Signs / I&O Vital Signs Date Time Temp Pulse Resp B/P (MAP) Pulse Ox O2 Delivery O2 Flow Rate FiO2 09/14/17 16:00 97.7 76 18 123/65 (84) 100 09/14/17 12:00 97.5 75 18 130/67 (88) 100 09/14/17 08:00 97.5 76 17 129/74 (92) 100 09/14/17 05:00 97.6 74 17 129/67 (87) 100 09/14/17 00:16 98.7 73 17 136/78 (97) 100 09/13/17 20:37 97.6 81 17 145/80 (101) 100 I/O 09/13/17 09/13/17 09/13/17 09/14/17 09/14/17 09/14/17 07:00 15:00 23:00 07:00 15:00 23:00 Intake Total 360 ml 340 ml 960 ml Output Total 975 ml 200 ml Balance -975 ml 160 ml 340 ml 960 ml Intake Oral 360 ml 240 ml 960 ml IV Total 100 ml Output Urine Total 975 ml 200 ml # Voids 3 2 4 # Bowel Movements 1 2 Physical Exam GENERAL: In NAD SKIN: Warm and dry. HEAD: Normocephalic. EYES: No scleral icterus. No injection or drainage. NECK: Supple, trachea midline. No JVD or lymphadenopathy. CARDIOVASCULAR: Regular rate and rhythm without murmurs, gallops, or rubs. RESPIRATORY: Breath sounds equal bilaterally. No accessory muscle use. GASTROINTESTINAL: Abdomen soft, non-tender, nondistended. MUSCULOSKELETAL: No cyanosis, or edema. Laboratory Laboratory Tests Test 09/14/17 15:30 Blood Urea Nitrogen 12 MG/DL Creatinine 0.70 MG/DL Random Glucose 110 MG/DL Calcium Level 8.2 MG/DL Sodium Level 136 MEQ/L Potassium Level 3.5 MEQ/L Chloride Level 103 MEQ/L Carbon Dioxide Level 25.4 MEQ/L Anion Gap 8 MEQ/L Estimat Glomerular Filtration Rate 119 ML/MIN Assessment and Plan Problem List: (1) Sepsis ICD Codes: A41.9 - Sepsis, unspecified organism Status: Acute (2) UTI (urinary tract infection) ICD Codes: N39.0 - Urinary tract infection, site not specified Status: Acute (3) CVA (cerebral vascular accident) ICD Codes: I63.9 - Cerebral infarction, unspecified (4) Tobacco abuse ICD Codes: Z72.0 - Tobacco use Assessment and Plan No new cardiac issues. Continue antibiotics as per ID. Proceed with NOHELIA tomorrow to evaluate for endocarditis. Increase activity. Problem Qualifiers (1) Sepsis: Qualified Codes: A41.9 - Sepsis, unspecified organism (2) UTI (urinary tract infection): Qualified Codes: N39.0 - Urinary tract infection, site not specified Leslie Rg MD Sep 14, 2017 20:02
[2017-09-14] MEDS: POTASSIUM CHLORIDE 20 MEQ CONTROLLED RELEASE TAB PO SCH (21:21)
[2017-09-14] MEDS: PRAVASTATIN SOD 40 MG TAB PO SCH (21:21)
[2017-09-14 21:57] VITALS: BP 123/70; PULSE 77; RESP 20; TEMP 98.4; O2SAT 100
[2017-09-15] VITALS: BP 128/62; PULSE 78; RESP 20; TEMP 97.5; O2SAT 98
[2017-09-15] MEDS: CEFEPIME INJ 2,000 MG in SODIUM CHLORIDE 0.9% INJ 100 ML IV SCH ×2 (03:00→11:54)
[2017-09-15 04:00] VITALS: BP 129/69; PULSE 72; RESP 20; TEMP 97.3; O2SAT 99
[2017-09-15] MEDS ORDERED: LACTATED RINGER'S 1000 ML IV PRN (06:00)
[2017-09-15] MEDS ORDERED: CHLORHEXIDINE GLUCONATE 2 % 1 PACK (2 CLOTHS) TOPICAL PRN (06:00)
[2017-09-15] MEDS ORDERED: POVIDONE IODINE 5% (ANTISEPSIS KIT) 4 APPLICATIONS EACH NARE PRN (06:00)
[2017-09-15] MEDS ORDERED: SODIUM CHLORID 0.9% 500 ML IV PRN (06:00)
[2017-09-15 07:41] VITALS: BP 134/76; PULSE 73; RESP 19; TEMP 98.1; O2SAT 100
[2017-09-15] MEDS: INSULIN ASPART SUPPLEMENTAL SCALE SQ SCH ×2 (08:00→12:00)
--- NOTE | 2017-09-15 08:52 | HHI.PR ---
Subjective Remarks no headaches, nausea or vomiting strength- improved looking forward to NOHELIA this pm denies any dysuria, urgency Objective Vitals Vital Signs Date Time Temp Pulse Resp B/P (MAP) Pulse Ox O2 Delivery O2 Flow Rate FiO2 09/15/17 07:41 98.1 73 19 134/76 (95) 100 09/15/17 04:00 97.3 72 20 129/69 (89) 99 09/15/17 00:00 97.5 78 20 128/62 (84) 98 09/14/17 21:57 98.4 77 20 123/70 (87) 100 09/14/17 16:00 97.7 76 18 123/65 (84) 100 09/14/17 12:00 97.5 75 18 130/67 (88) 100 I/O 09/14/17 09/14/17 09/14/17 09/15/17 09/15/17 09/15/17 07:00 15:00 23:00 07:00 15:00 23:00 Intake Total 340 ml 960 ml 100 ml Balance 340 ml 960 ml 100 ml Intake Oral 240 ml 960 ml IV Total 100 ml 100 ml # Voids 2 4 2 # Bowel Movements 2 0 Result Diagram: 09/13/17 1120 09/14/17 1530 Imaging Last Impressions Carotid Artery Ultrasound 09/11/17 0000 Signed Impressions: Service Date/Time: Monday, September 11, 2017 08:10 - CONCLUSION: No hemodynamically significant stenosis. Vincent Lenz MD Abdomen Ultrasound 09/11/17 0000 Signed Impressions: Service Date/Time: Monday, September 11, 2017 19:21 - CONCLUSION: 1. Mild hepatic and splenic enlargement. No gallstones. No biliary ductal dilatation. Amado Hale MD Chest X-Ray 09/10/17 1643 Signed Impressions: Service Date/Time: Sunday, September 10, 2017 17:00 - CONCLUSION: No acute disease. Bimal Diallo MD Head Magnetic Resonance Angiography 09/10/17 0000 Signed Impressions: Service Date/Time: Sunday, September 10, 2017 21:01 - CONCLUSION: Normal examination for a patient of this age. Amado Hale MD Head CT 09/10/17 0000 Signed Impressions: Service Date/Time: Sunday, September 10, 2017 17:16 - CONCLUSION: 1. Questionable hypodensity in the mid right cerebral hemisphere adjacent to the sylvian fissure is seen on only one image and may be artifactual. This would not explain any right-sided symptoms the patient was experiencing. If there is a clinical concern, MRI of the brain could be performed for further characterization. 2. Minimal chronic sinus disease in one of the anterior right ethmoid air cells on the right. Kirby Trejo MD Brain MRI 09/10/17 0000 Signed Impressions: Service Date/Time: Sunday, September 10, 2017 21:01 - CONCLUSION: 1. Small scattered bilateral infarcts as above predominantly in the right MCA distribution. Amado Hale MD Objective Remarks awake and alert, oriented x3 speech clear anicteric, right- slight lid lag mild shallow left nasolabial fold + carotid bruit left regular rhythm, no murmur abdomen soft, nontender extremities no calf swelling or tenderness no tenderness on palpation fo the spines grossly no sensory deficits strength almost equal- gait- - steady A/P Problem List: (1) Sepsis ICD Code: A41.9 - Sepsis, unspecified organism Status: Acute (2) UTI (urinary tract infection) ICD Code: N39.0 - Urinary tract infection, site not specified Status: Acute (3) CVA (cerebral vascular accident) ICD Code: I63.9 - Cerebral infarction, unspecified (4) Tobacco abuse ICD Code: Z72.0 - Tobacco use Assessment and Plan 52 years old male right handed 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 Statins. PT/OT daily Severe Pseudomonas Sepsis: secondary to UTI- with eelvated lactic acid level of 2.3 on admission US= no hydronephrosis by report on IV Levaquin + Cefepime for NOHELIA today- cardiology consulted + Carotid bruit no significant stenosis on US Tobacco Abuse: Pt counselled. Ativan prn if needed. Cocaine +- discussed with him. Patient denies use. denies IVDU HYponatremia- - Na improved. TSH normal Hypokalemia- resolved Elevated LFTs- trending down US no biliary obstruction. HBsAg- negative. rechk LFTs DVT Prophylaxis: on Lovenox. Increase activity Social work for d/c planning as needed. PT consult/OT consult/Speech therapy consult Incentive spirometry hourly Lovenox for DVT prophylaxis Problem Qualifiers (1) Sepsis: Qualified Codes: A41.9 - Sepsis, unspecified organism (2) UTI (urinary tract infection): Qualified Codes: N39.0 - Urinary tract infection, site not specified Flakito Magallon MD Sep 15, 2017 08:52
[2017-09-15] MEDS: ASPIRIN 81 MG CHEW TAB PO SCH (09:00)
[2017-09-15] MEDS ORDERED: POTASSIUM CHLORIDE 20 MEQ CONTROLLED RELEASE TAB PO SCH (09:00)
[2017-09-15] MEDS: POTASSIUM CHLORIDE 20 MEQ CONTROLLED RELEASE TAB PO SCH (09:00)
[2017-09-15] MEDS: SODIUM CHLORIDE 0.9% FLUSH 10 ML FLUSH IV FLUSH SCH (09:00)
[2017-09-15] MEDS: ENOXAPARIN SODIUM 30 MG/0.3 ML SYRINGE SQ SCH (09:00)
[2017-09-15 11:29] LABS: BASOPHIL # 0.1 TH/MM3 (0-0.2); BASOPHIL % 0.7 % (0.0-2.0); EOSINOPHIL # 0.2 TH/MM3 (0-0.4); EOSINOPHIL % 0.9 % (0.0-4.0); HEMATOCRIT 38.1 % (39.0-51.0); HEMO FLAGS DIFF FINAL; LYMPH % 15.6 % (9.0-44.0); LYMPHOCYTE # 2.8 TH/MM3 (1.0-4.8); MEAN CORPUSCULAR HEMOGLOBIN 27.8 PG (27.0-34.0); MEAN CORPUSCULAR HGB CONC 33.1 % (32.0-36.0); MONO % 5.5 % (0.0-8.0); NEUT % 77.3 % (16.0-70.0); PLATELET COUNT 412 TH/MM3 (150-450); RED BLOOD COUNT 4.54 MIL/MM3 (4.50-5.90); RED CELL DISTRIBUTION WIDTH 13.4 % (11.6-17.2); WHITE BLOOD COUNT 18.1 TH/MM3 (4.0-11.0)
[2017-09-15 12:00] LABS: BICARBONATE 26.6 MEQ/L (21.0-32.0); POTASSIUM 4.3 MEQ/L (3.5-5.1)
[2017-09-15 12:03] LABS: INDIRECT BILIRUBIN 0.2 MG/DL (0.0-0.8); TOTAL BILIRUBIN ADULT 0.3 MG/DL (0.2-1.0)
[2017-09-15 12:11] VITALS: BP 119/67; PULSE 71; RESP 18; TEMP 97.2; O2SAT 100
--- NOTE | 2017-09-15 13:02 | HHI.IDPN ---
Note Infectious Disease Note Patient feels okay. Afebrile. Denies chills. Denies urinary problems. No dizziness. No MAE. To have NOHELIA today. Repeat blood culture has no growth. Patient is a 52 year-old white male who presented to the emergency department on 09/10 with left arm weakness and slurred speech. PAST MEDICAL HISTORY Unremarkable. ALLERGIES NO KNOWN DRUG ALLERGIES. MEDICATIONS 1. Continue Levaquin 2. Continue Cefepime. SOCIAL HISTORY The patient denies tobacco use. He states that he used to smoke in the past. However, he has the smell of tobacco on his breath. He denies alcohol use. He denies illicit drug use. States that he used to do drugs but has not done drugs in the year. However, his toxicology screen is positive for cocaine. OBJECTIVE: Vital Signs Date Time Temp Pulse Resp B/P (MAP) Pulse Ox O2 Delivery O2 Flow Rate FiO2 09/15/17 12:11 97.2 71 18 119/67 (84) 100 09/15/17 07:41 98.1 73 19 134/76 (95) 100 09/15/17 04:00 97.3 72 20 129/69 (89) 99 09/15/17 00:00 97.5 78 20 128/62 (84) 98 09/14/17 21:57 98.4 77 20 123/70 (87) 100 09/14/17 16:00 97.7 76 18 123/65 (84) 100 Laboratory Tests Test 09/15/17 11:05 White Blood Count 18.1 TH/MM3 Red Blood Count 4.54 MIL/MM3 Hemoglobin 12.6 GM/DL Hematocrit 38.1 % Mean Corpuscular Volume 84.0 FL Mean Corpuscular Hemoglobin 27.8 PG Mean Corpuscular Hemoglobin Concent 33.1 % Red Cell Distribution Width 13.4 % Platelet Count 412 TH/MM3 Mean Platelet Volume 8.3 FL Neutrophils (%) (Auto) 77.3 % Lymphocytes (%) (Auto) 15.6 % Monocytes (%) (Auto) 5.5 % Eosinophils (%) (Auto) 0.9 % Basophils (%) (Auto) 0.7 % Neutrophils # (Auto) 14.0 TH/MM3 Lymphocytes # (Auto) 2.8 TH/MM3 Monocytes # (Auto) 1.0 TH/MM3 Eosinophils # (Auto) 0.2 TH/MM3 Basophils # (Auto) 0.1 TH/MM3 CBC Comment DIFF FINAL Differential Comment Laboratory Tests Test 09/14/17 15:30 09/15/17 11:05 Blood Urea Nitrogen 12 MG/DL 15 MG/DL Creatinine 0.70 MG/DL 0.76 MG/DL Random Glucose 110 MG/DL 96 MG/DL Calcium Level 8.2 MG/DL 8.9 MG/DL Sodium Level 136 MEQ/L 136 MEQ/L Potassium Level 3.5 MEQ/L 4.3 MEQ/L Chloride Level 103 MEQ/L 103 MEQ/L Carbon Dioxide Level 25.4 MEQ/L 26.6 MEQ/L Anion Gap 8 MEQ/L 6 MEQ/L Estimat Glomerular Filtration Rate 119 ML/MIN 109 ML/MIN Total Protein 7.7 GM/DL Albumin 2.6 GM/DL Alkaline Phosphatase 109 U/L Aspartate Amino Transf (AST/SGOT) 77 U/L Alanine Aminotransferase (ALT/SGPT) 147 U/L Total Bilirubin 0.3 MG/DL Direct Bilirubin 0.1 MG/DL Indirect Bilirubin 0.2 MG/DL Microbiology Date/Time Source Procedure Growth Status 09/12/17 22:12 Blood Peripheral Aerobic Blood Culture - Preliminary NO GROWTH IN 3 DAYS Resulted 09/12/17 22:12 Blood Peripheral Anaerobic Blood Culture - Preliminary NO GROWTH IN 3 DAYS Resulted 09/12/17 22:07 Blood Peripheral Aerobic Blood Culture - Preliminary NO GROWTH IN 3 DAYS Resulted 09/12/17 22:07 Blood Peripheral Anaerobic Blood Culture - Preliminary NO GROWTH IN 3 DAYS Resulted IMAGING: Carotid Artery Ultrasound 09/11/17 0000 Signed Impressions: Service Date/Time: Monday, September 11, 2017 08:10 - CONCLUSION: No hemodynamically significant stenosis. Vincent Lenz MD Abdomen Ultrasound 09/11/17 0000 Signed Impressions: Service Date/Time: Monday, September 11, 2017 19:21 - CONCLUSION: 1. Mild hepatic and splenic enlargement. No gallstones. No biliary ductal dilatation. Amado Hale MD Chest X-Ray 09/10/17 1643 Signed Impressions: Service Date/Time: Sunday, September 10, 2017 17:00 - CONCLUSION: No acute disease. Bimal Diallo MD Head Magnetic Resonance Angiography 09/10/17 0000 Signed Impressions: Service Date/Time: Sunday, September 10, 2017 21:01 - CONCLUSION: Normal examination for a patient of this age. Amado Hale MD Head CT 09/10/17 0000 Signed Impressions: Service Date/Time: Sunday, September 10, 2017 17:16 - CONCLUSION: 1. Questionable hypodensity in the mid right cerebral hemisphere adjacent to the sylvian fissure is seen on only one image and may be artifactual. This would not explain any right-sided symptoms the patient was experiencing. If there is a clinical concern, MRI of the brain could be performed for further characterization. 2. Minimal chronic sinus disease in one of the anterior right ethmoid air cells on the right. Kirby Trejo MD Brain MRI 09/10/17 0000 Signed Impressions: Service Date/Time: Sunday, September 10, 2017 21:01 - CONCLUSION: 1. Small scattered bilateral infarcts as above predominantly in the right MCA distribution. Amado Hale MD PHYSICAL EXAMINATION GEN: No acute distress. HEENT: No icterus. The left eyelid has healed laceration. Oropharynx, poor dentition. Moist mucosa. No visible lesions. No thrush. Neck: Supple without adenopathy. Lungs: Clear breath sounds. Heart: Regular S1-S2 without audible murmurs, rubs or gallops. Abdomen:Bowel sounds present, soft, nontender. Extremities: No clubbing, cyanosis or edema. Skin: No rash. Neurological: Patient with weakness of the left upper extremity Psych: Calm and cooperative. IMPRESSION 1. Sepsis. Pseudomonas. Also the patient has positive urine culture with Pseudomonas. 2. Urinary tract infection due to Pseudomonas. 3. Leukocytosis secondary to sepsis. WBC up again. 4. CVA and multiple brain lesions. 5. Rule out endocarditis given the changes in the brain and the sepsis and also the patient has a negative carotid ultrasound. RECOMMENDATIONS 1. Continue cefepime. 2. Continue Levaquin. 3. NOHELIA to evaluate for endocarditis. If the NOHELIA has no endocarditis mae can be discharged on PO Levaquin 750 mg daily x 9 more days. If echo shows endocarditis he will need to continue IV antibiotics with cefepime and because it is 3 x a day he my need to remain in the hospital since the dosing would be difficult to do outpatient. . This has been explained to the patient. He says he want out of the hospital today. Jared Roberson MD Sep 15, 2017 13:02
--- NOTE | 2017-09-15 13:23 | PD.CARD.PN ---
Subjective Subjective Remarks No CP or SOB, wishes to go home Objective Medications Current Medications Medications (Trade) Dose Ordered Sig/Vikas Route Start Time Stop Time Status Last Admin (NS Flush) 2 ml BID IV FLUSH 09/10/17 21:00 09/15/17 09:00 (NS Flush) 2 ml UNSCH PRN IV FLUSH 09/10/17 19:45 (Vasotec Inj) 1.25 mg Q4H PRN IV PUSH 09/10/17 19:45 (Aspirin Chew) 162 mg DAILY PO 09/11/17 09:00 09/14/17 08:36 (Pravachol) 40 mg HS PO 09/10/17 21:00 09/14/17 21:21 (NovoLOG SUPPLEMENTAL SCALE) 1 ACHS SQ 09/10/17 21:00 09/14/17 17:45 (D50w (Vial) Inj) 50 ml UNSCH PRN IV PUSH 09/10/17 19:45 (Glucagon Inj) 1 mg UNSCH PRN OTHER 09/10/17 19:45 (Zofran Inj) 4 mg Q6H PRN IVP 09/10/17 19:45 (Dulcolax Supp) 10 mg DAILY PRN RECTAL 09/10/17 19:45 (Lovenox Inj) 30 mg Q24H SQ 09/11/17 09:00 09/14/17 08:36 Levofloxacin/ Dextrose 100 ml @ 100 mls/hr Q24H IV 09/11/17 16:00 09/14/17 16:00 Cefepime HCl 2000 mg/Sodium Chloride 100 ml @ 200 mls/hr Q8H IV 09/12/17 11:00 09/15/17 11:54 (KCl) 20 meq DAILY PO 09/14/17 19:44 09/14/17 21:21 Lactated Ringer's 1,000 ml @ 30 mls/hr Q24H PRN IV 09/15/17 06:00 09/18/17 05:59 Sodium Chloride 500 ml @ 30 mls/hr [id number] PRN IV 09/15/17 06:00 09/18/17 05:59 (Betadine 5% Antisepsis Kit) 1 applic [employer] PRN EACH NARE 09/15/17 06:00 09/18/17 05:59 (Chlorhexidine 2% Cloth) 3 pack [employer] PRN TOPICAL 09/15/17 06:00 09/18/17 05:59 (KCl) 20 meq DAILY PO 09/15/17 09:00 09/15/17 09:39 Vital Signs / I&O Vital Signs Date Time Temp Pulse Resp B/P (MAP) Pulse Ox O2 Delivery O2 Flow Rate FiO2 09/15/17 12:11 97.2 71 18 119/67 (84) 100 09/15/17 07:41 98.1 73 19 134/76 (95) 100 09/15/17 04:00 97.3 72 20 129/69 (89) 99 09/15/17 00:00 97.5 78 20 128/62 (84) 98 09/14/17 21:57 98.4 77 20 123/70 (87) 100 09/14/17 16:00 97.7 76 18 123/65 (84) 100 I/O 09/14/17 09/14/17 09/14/17 09/15/17 09/15/17 09/15/17 07:00 15:00 23:00 07:00 15:00 23:00 Intake Total 340 ml 960 ml 100 ml Balance 340 ml 960 ml 100 ml Intake Oral 240 ml 960 ml IV Total 100 ml 100 ml # Voids 2 4 2 # Bowel Movements 2 0 Physical Exam GENERAL: In NAD SKIN: Warm and dry. HEAD: Normocephalic. EYES: No scleral icterus. No injection or drainage. NECK: Supple, trachea midline. No JVD or lymphadenopathy. CARDIOVASCULAR: Regular rate and rhythm without murmurs, gallops, or rubs. RESPIRATORY: Breath sounds equal bilaterally. No accessory muscle use. GASTROINTESTINAL: Abdomen soft, non-tender, nondistended. MUSCULOSKELETAL: No cyanosis, or edema. Laboratory Laboratory Tests Test 09/14/17 15:30 09/15/17 11:05 Blood Urea Nitrogen 12 MG/DL 15 MG/DL Creatinine 0.70 MG/DL 0.76 MG/DL Random Glucose 110 MG/DL 96 MG/DL Calcium Level 8.2 MG/DL 8.9 MG/DL Sodium Level 136 MEQ/L 136 MEQ/L Potassium Level 3.5 MEQ/L 4.3 MEQ/L Chloride Level 103 MEQ/L 103 MEQ/L Carbon Dioxide Level 25.4 MEQ/L 26.6 MEQ/L Anion Gap 8 MEQ/L 6 MEQ/L Estimat Glomerular Filtration Rate 119 ML/MIN 109 ML/MIN White Blood Count 18.1 TH/MM3 Red Blood Count 4.54 MIL/MM3 Hemoglobin 12.6 GM/DL Hematocrit 38.1 % Mean Corpuscular Volume 84.0 FL Mean Corpuscular Hemoglobin 27.8 PG Mean Corpuscular Hemoglobin Concent 33.1 % Red Cell Distribution Width 13.4 % Platelet Count 412 TH/MM3 Mean Platelet Volume 8.3 FL Neutrophils (%) (Auto) 77.3 % Lymphocytes (%) (Auto) 15.6 % Monocytes (%) (Auto) 5.5 % Eosinophils (%) (Auto) 0.9 % Basophils (%) (Auto) 0.7 % Neutrophils # (Auto) 14.0 TH/MM3 Lymphocytes # (Auto) 2.8 TH/MM3 Monocytes # (Auto) 1.0 TH/MM3 Eosinophils # (Auto) 0.2 TH/MM3 Basophils # (Auto) 0.1 TH/MM3 CBC Comment DIFF FINAL Differential Comment Total Protein 7.7 GM/DL Albumin 2.6 GM/DL Alkaline Phosphatase 109 U/L Aspartate Amino Transf (AST/SGOT) 77 U/L Alanine Aminotransferase (ALT/SGPT) 147 U/L Total Bilirubin 0.3 MG/DL Direct Bilirubin 0.1 MG/DL Indirect Bilirubin 0.2 MG/DL Assessment and Plan Problem List: (1) Sepsis ICD Codes: A41.9 - Sepsis, unspecified organism Status: Acute (2) UTI (urinary tract infection) ICD Codes: N39.0 - Urinary tract infection, site not specified Status: Acute (3) CVA (cerebral vascular accident) ICD Codes: I63.9 - Cerebral infarction, unspecified (4) Tobacco abuse ICD Codes: Z72.0 - Tobacco use Assessment and Plan No new cardiac issues. Continue antibiotics as per ID. Proceed with NOHELIA today to evaluate for endocarditis. Increase activity. Wants to go home [facility]. Problem Qualifiers (1) Sepsis: Qualified Codes: A41.9 - Sepsis, unspecified organism (2) UTI (urinary tract infection): Qualified Codes: N39.0 - Urinary tract infection, site not specified Leslie Rg MD Sep 15, 2017 13:23
--- NOTE | 2017-09-15 14:49 | EKG ---
Date Performed: 09/15/2017 Time Performed: 09:46:07 PTAGE: 52 years EKG: Sinus rhythm BORDERLINE LEFT AXIS DEVIATION VOLTAGE CRITERIA FOR LVH ABNORMAL ECG NO PREVIOUS TRACING DOCTOR: Yohannes Hamilton Interpretating Date/Time 09/15/2017 14:48:08
[2017-09-15] MEDS: LEVOFLOXACIN 500 MG PREMIX INJ 100 ML IV SCH (15:21)
--- NOTE | 2017-09-21 11:24 | CF ---
cc: LESLIE RG DATE OF PROCEDURE: 09/15/2017 PROCEDURE PERFORMED: Transesophageal echocardiogram. INDICATION: CVA. Sepsis. Evaluation for endocarditis. PROCEDURE: After the patient was sedated by Anesthesia, transesophageal probe was placed without difficulty. Tomographic images were obtained. Left ventricular function was preserved. Estimated ejection fraction of 60% with no segmental wall motion abnormalities. There was evidence of mild left ventricular hypertrophy. Left atrial appendage was visualize and there was no evidence of left atrial thrombus. Mitral valve was structurally normal; there was no evidence of mitral valve vegetation. There was no evidence of mitral stenosis. There was evidence of trace mitral regurgitation. The aortic valve was mildly thickened. There was evidence of mild aortic stenosis. There was evidence of aortic insufficiency. There was no evidence of aortic valve vegetation. The valve was trileaflet. The tricuspid valve was structurally normal. There was evidence of tricuspid stenosis. There was evidence of trace tricuspid regurgitation. There was no evidence of tricuspid vegetation. There was no evidence of pulmonary valve insufficiency. The pulmonary valve was structurally normal. Bubble study was performed and there was no evidence of [id number] shunt. The thoracic aorta had mild plaque. DIAGNOSES: 1. No evidence of valvular vegetation. 2. No evidence of patent foramen ovale. 3. Preserved left ventricular systolic function. 4. No evidence of left atrial thrombus. 5. Aortic sclerosis, mild stenosis. 6. Trace mitral regurgitation. 7. Trace tricuspid regurgitation. IMPRESSION: No evidence of endocarditis. Leslie Rg MD OQ/SSB /2:10 PM /11:00 AM
== END 2017-09-15 17:23 | disposition left against medical advice (07) | DRG 871 ==
LOC: NEPC 16:06 → NEDA 19:40 → N05B 21:32
PROVIDERS: ADMIT Internal Medicine; ATTEND Internal Medicine
PROC: B246ZZ4 Ultrasonography of Right and Left Heart, Transesophageal (ICD-10-PCS; principal; 2017-09-15)
DX: A41.52 Sepsis due to Pseudomonas (principal); I63.511 Cerebral infarction due to unspecified occlusion or stenosis of right middle cerebral artery; E87.1 Hypo-osmolality and hyponatremia; N39.0 Urinary tract infection, site not specified; E87.6 Hypokalemia; R29.810 Facial weakness; R47.81 Slurred speech; Z72.0 Tobacco use; R82.5 Elevated urine levels of drugs, medicaments and biological substances; K08.9 Disorder of teeth and supporting structures, unspecified; R65.20 Severe sepsis without septic shock
CPT/HCPCS: 70450; 70544; 70551; 71010; 76700; 80048; 80053; 80061; 80076; 80307; 81001; 82948; 83036; 83605; 84443; 85025; 85610; 85652; 85730; 87040; 87077; 87086; 87186; 87205; 87340; 87804; 93005; 93225; 93226; 93306; 93312; 93320; 93325; 93880; 96361; 96374; J0692; J1650; J1815; J1956; J2543; J3370; J3480; J7030; J7050

== ENCOUNTER 2017-09-17 21:15 | Inpatient (IN) | payer SELFPAY ==
[~2017-09-17] VITALS: Ht 177.8 cm; Wt 74.9 kg
[2017-09-17 21:17] VITALS: BP 105/57; PULSE 132; RESP 22; TEMP 101.4; O2SAT 97
[2017-09-17] MEDS ORDERED: ACETAMINOPHEN 325 MG TAB PO ONE (22:00)
[2017-09-17] MEDS ORDERED: SODIUM CHLOR 0.9% 1000 ML INJ 1,000 ML IV ONE (22:00)
--- NOTE | 2017-09-17 22:08 | PD ---
HPI Chief Complaint: Fever Time Seen by Provider: 21:41 Travel History International Travel<30 days: No Contact w/Intl Traveler<30days: No Traveled to known affect area: No History of Present Illness HPI 52yo M with recent admission for subacute CVA and right MCA infarct, sepsis secondary to pseudomonas in urine here with c/o not feeling well. Pt signed out AMA on 09/15/17 and I was not able to find a discharge note. Pt said he was not given any antibiotics and last ID note recommended NOHELIA and dc with PO levaquin for 9 more days if NOHELIA negative. Pt said they did NOHELIA but I was not able to find the results. +Fever and chills. Denies any headache, chest pain, sob, n/v, abdominal pain. PFSH Past Medical History Cancer: No Cardiovascular Problems: No Endocrine: No Genitourinary: No Immune Disorder: No Musculoskeletal: No Neurologic: No Psychiatric: No Reproductive: No Respiratory: No ?: Not Past Surgical History Other Surgery: Yes Social History Alcohol Use: No Tobacco Use: Yes (1/2 pack a day ) Substance Use: No Allergies-Medications (Allergen,Severity, Reaction): Coded Allergies: No Known Allergies (Verified Allergy, Unknown, 09/10/17) Reported Meds & Prescriptions Reported Meds & Active Scripts Active Review of Systems Except as stated in HPI: all other systems reviewed are Neg Physical Exam Narrative GENERAL: 52yo M in moderate distress. SKIN: Focused skin assessment warm/dry. HEAD: Atraumatic. Normocephalic. EYES: Pupils equal and round. No scleral icterus. No injection or drainage. ENT: No nasal bleeding or discharge. Mucous membranes pink and moist. NECK: Trachea midline. No JVD. CARDIOVASCULAR: Tachycardic in the 115. No murmur appreciated. RESPIRATORY: No accessory muscle use. Clear to auscultation. Breath sounds equal bilaterally. GASTROINTESTINAL: Abdomen soft, non-tender, nondistended. MUSCULOSKELETAL: No obvious deformities. No clubbing. No cyanosis. No edema. NEUROLOGICAL: Awake and alert. No obvious cranial nerve deficits. Motor grossly within normal limits. Normal speech. PSYCHIATRIC: Appropriate mood and affect; insight and judgment normal. Data Data Last Documented VS Vital Signs Date Time Temp Pulse Resp B/P (MAP) Pulse Ox O2 Delivery O2 Flow Rate FiO2 09/17/17 23:33 18 09/17/17:17 101.4 132 105/57 (73) 97 Room Air Orders Orders Blood Culture (09/17/17 21:53) Complete Blood Count With Diff (09/17/17 21:53) Basic Metabolic Panel (Bmp) (09/17/17 21:53) Prothrombin Time / Inr (Pt) (09/17/17 21:53) Act Partial Throm Time (Ptt) (09/17/17 21:53) Lactic Acid Sepsis Protocol (09/17/17 21:53) Sodium Chlor 0.9% 1000 Ml Inj (Ns 1000 M (09/17/17 22:00) Urinalysis - C+S If Indicated (09/17/17 21:53) Acetaminophen (Tylenol) (09/17/17 22:00) Vancomycin Inj (Vancomycin Inj) (09/17/17 23:30) Piperacil-Tazo 3.375 Gm Premix (Zosyn 3. (09/17/17 23:30) Admit Order (Ed Use Only) (09/17/17 23:43) Labs Laboratory Tests Test 09/17/17 21:50 White Blood Count 21.8 TH/MM3 Red Blood Count 4.09 MIL/MM3 Hemoglobin 11.5 GM/DL Hematocrit 33.8 % Mean Corpuscular Volume 82.8 FL Mean Corpuscular Hemoglobin 28.0 PG Mean Corpuscular Hemoglobin Concent 33.9 % Red Cell Distribution Width 13.6 % Platelet Count 441 TH/MM3 Mean Platelet Volume 7.7 FL Neutrophils (%) (Auto) 87.6 % Lymphocytes (%) (Auto) 6.8 % Monocytes (%) (Auto) 5.0 % Eosinophils (%) (Auto) 0.2 % Basophils (%) (Auto) 0.4 % Neutrophils # (Auto) 19.1 TH/MM3 Lymphocytes # (Auto) 1.5 TH/MM3 Monocytes # (Auto) 1.1 TH/MM3 Eosinophils # (Auto) 0.0 TH/MM3 Basophils # (Auto) 0.1 TH/MM3 CBC Comment AUTO DIFF Differential Total Cells Counted 100 Neutrophils % (Manual) 82 % Band Neutrophils % 4 % Lymphocytes % 7 % Monocytes % 5 % Basophils % 1 % Neutrophils # (Manual) 19.0 TH/MM3 Myelocytes 1 % Differential Comment FINAL DIFF MANUAL Toxic Granulation 2+ Dohle Bodies PRESENT Platelet Estimate HIGH Platelet Morphology Comment NORMAL Prothrombin Time 11.4 SEC Prothromb Time International Ratio 1.1 RATIO Activated Partial Thromboplast Time 26.4 SEC Blood Urea Nitrogen 13 MG/DL Creatinine 0.94 MG/DL Random Glucose 111 MG/DL Calcium Level 8.2 MG/DL Sodium Level 130 MEQ/L Potassium Level 3.8 MEQ/L Chloride Level 98 MEQ/L Carbon Dioxide Level 22.3 MEQ/L Anion Gap 10 MEQ/L Estimat Glomerular Filtration Rate 85 ML/MIN Lactic Acid Level 1.9 mmol/L MDM Medical Decision Making Medical Screen Exam Complete: Yes Emergency Medical Condition: Yes Differential Diagnosis Bacteremia vs. urosepsis vs. dehydration vs. electrolyte abnormality Narrative Course 52yo M who was recently admitted with sepsis secondary to pseudomonas and AMA 2 days ago in here complaining of not feeling well and having fever/chills. Pt is febrile at 101.4F and tachycardic at 132bpm at triage. Pt given NS IVF, acetaminophen and HR is now in the 80s. Labs reviewed, leukocytosis at 21.8 which is trending up from 2 days ago. H/H is low but at baseline. Lactic acid is normal at 1.9. Mild hyponatremia at 130. UA is still pending. Blood cultures were drawn and pt given vancomycin and zosyn. Discussed with Dr. Ventura and accepted to her service. Critical Care Narrative Aggregate critical care time was 35 minutes. Time to perform other separately billable procedures was not included in the critical care time. My time did not include minutes spent treating any other patients simultaneously or on activities that did not directly contribute to the patient's treatment. The services I provided to this patient were to treat and/or prevent clinically significant deterioration that could result in: cardiovascular collapse or . I provided critical care services requiring my management, as noted below: Chart data review, documentation time, medication orders and management, vital sign assessments/reviewing monitor data, ordering and reviewing lab tests, ordering and interpreting/reviewing x-rays and diagnostic studies, care of the patient and discussion of the patient with the admitting physicians. Sepsis Criteria SIRS Criteria (2 or more): Temp > 100.9 or < 96.8, Heart rate over 90 Sepsis Criteria (SIRS+source): Infect source susp/known Diagnosis Primary Impression: Sepsis Qualified Codes: A41.9 - Sepsis, unspecified organism Admitting Information Admitting Physician Requests: Admit Raisa Pickens DO Sep 17, 2017 22:08
[2017-09-17 22:35] LABS: AUTOMATED NEUTROPHIL # 19.1 TH/MM3 (1.8-7.7); BASOPHIL # 0.1 TH/MM3 (0-0.2); BASOPHIL % 0.4 % (0.0-2.0); EOSINOPHIL % 0.2 % (0.0-4.0); HEMATOCRIT 33.8 % (39.0-51.0); HEMOGLOBIN 11.5 GM/DL (13.0-17.0); LYMPH % 6.8 % (9.0-44.0); LYMPHOCYTE # 1.5 TH/MM3 (1.0-4.8); MEAN CELL VOLUME 82.8 FL (80.0-100.0); MEAN CORPUSCULAR HGB CONC 33.9 % (32.0-36.0); MEAN PLATELET VOLUME 7.7 FL (7.0-11.0); MONOCYTE # 1.1 TH/MM3 (0-0.9); NEUT % 87.6 % (16.0-70.0); PLATELET COUNT 441 TH/MM3 (150-450); RED BLOOD COUNT 4.09 MIL/MM3 (4.50-5.90); RED CELL DISTRIBUTION WIDTH 13.6 % (11.6-17.2); WHITE BLOOD COUNT 21.8 TH/MM3 (4.0-11.0)
[2017-09-17 22:53] LABS: INTERNATIONAL NORMALIZED RATIO 1.1 RATIO; PROTHROMBIN TIME - PATIENT 11.4 SEC (9.8-11.6)
[2017-09-17 22:58] LABS: BICARBONATE 22.3 MEQ/L (21.0-32.0); CALCIUM 8.2 MG/DL (8.5-10.1); CREATININE 0.94 MG/DL (0.60-1.30)
[2017-09-17 23:18] LABS: BANDS 4 % (0-6); BASOPHILS 1 % (0-2); LYMPHOCYTES 7 % (9-44); MONOCYTES 5 % (0-8); MYELOCYTES 1 % (0-0); POLYS (SEG NEUTROPHILS) 82 % (16-70)
[2017-09-17 23:20] LABS: TOXIC GRANULATION 2+ (NORMAL)
[2017-09-17 23:28] LABS: DOHLE BODIES PRESENT (NONE SEEN)
[2017-09-17] MEDS ORDERED: VANCOMYCIN INJ 1,200 MG in SODIUM CHLOR 0.9% 250 ML INJ 250 ML IV ONE (23:30)
[2017-09-17] MEDS ORDERED: PIPERACIL-TAZO 3.375 GM PREMIX 50 ML IV ONE (23:30)
[2017-09-17] MEDS ORDERED: MAGNESIUM HYDROXIDE SUSP 30 ML CUP PO PRN (23:45)
[2017-09-17] MEDS ORDERED: SODIUM CHLORIDE 0.9% FLUSH 10 ML FLUSH IV FLUSH PRN (23:45)
[2017-09-17] MEDS ORDERED: LACTULOSE SYRUP 20 GM/30 ML CUP PO PRN (23:45)
[2017-09-17] MEDS ORDERED: ONDANSETRON HCL 4 MG/2 ML VIAL IVP PRN (23:45)
[2017-09-17] MEDS ORDERED: BISACODYL 10 MG SUPP RECTAL PRN (23:45)
[2017-09-17] MEDS ORDERED: SENNOSIDES 8.6 MG TAB PO PRN (23:45)
--- NOTE | 2017-09-17 23:49 | HHI.HP ---
HPI Service [facility] Primary Care Physician No Primary Care Physician Admission Diagnosis Sepsis Diagnoses: (1) Sepsis Diagnosis: Principal (2) UTI (urinary tract infection) Diagnosis: Principal (3) Bacteremia Diagnosis: Principal (4) CVA (cerebral vascular accident) Diagnosis: Principal (5) Cocaine abuse Diagnosis: Principal (6) Tobacco abuse Diagnosis: Principal Travel History International Travel<30 Days: No Contact w/Intl Traveler <30 Da: No Traveled to Known Affected Are: No History of Present Illness This is a 52-year-old male with a PMH of Tobacco Abuse and Cocaine Abuse who presented to the ER with complaints of generalized malaise addition to subjective fevers/chills. Recent admit 09/10/17 for complaints of left-sided weakness and slurred speech, CT Head noted to have questionable hypodensity mid right cerebral hemisphere, MRI Brain 09/10/17 with small scattered bilateral infarcts in right MCA distribution, thought to be thromboembolic event, possibly secondary to endocarditis as pt w/ Pseudomonas UTI and Bacteremia in addition to +Cocaine w/ questionable IVDU. S/p eval by Dr. Roberson, on Levaquin/Cefepime IV, also eval by Dr. Rg, s/p Echo 09/13/17 w/ EF 60%. Plan for NOHELIA, however it appears pt LEFT AMA prior to NOHELIA. Returns now because "not feeling good". Denies Cocaine or IVDU. On arrival, BP 105/57, HR 132, O2 sat 97% on RA, Temp 101.4. WBC 21.8. Chemistry essentially unremarkable except for GFR 85. Lactic Acid 1.9. INR 1.1. UA, Urine Drug Screen pending. S/p Blood Cultures, Vanc/Zosyn in ER. Review of Systems Except as stated in HPI: all other systems reviewed are Neg ROS: 14 point review of systems otherwise negative. Past Family Social History Past Medical History PMH: Tobacco Abuse and Cocaine Abuse Past Surgical History PAST SURGICAL HISTORY: Hand Surgery Allergies: Coded Allergies: No Known Allergies (Verified Allergy, Unknown, 09/10/17) Family History PAST FAMILY HISTORY: Reviewed. No h/o DM or CAD Social History PAST SOCIAL HISTORY: Negative for alcohol. Smokes 1/2ppd. Denies drug abuse, however recent UDS +Cocaine. Physical Exam Vital Signs Vital Signs Date Time Temp Pulse Resp B/P (MAP) Pulse Ox O2 Delivery O2 Flow Rate FiO2 09/17/17 23:33 18 09/17/17 21:17 101.4 132 22 105/57 (73) 97 Room Air Physical Exam PE: GENERAL: Middle-aged male in no acute distress. HEENT: PERRLA, EOMI. No scleral icterus or conjunctival pallor. No lid lag or facial droop. CARDIOVASCULAR: Regular rate and rhythm. No obvious murmurs to auscultation. No chest tenderness to palpation. RESPIRATORY: No obvious rhonchi or wheezing. Clear to auscultation. Breath sounds equal bilaterally. GASTROINTESTINAL: Abdomen soft, non-tender, nondistended. BS normal. MUSCULOSKELETAL: Extremities without clubbing, cyanosis, or edema. No obvious deformities. NEUROLOGICAL: Awake, alert and oriented x4. No focal neurologic deficits. Moving both upper and lower extremities spontaneously. Laboratory Laboratory Tests Test 09/17/17 21:50 White Blood Count 21.8 Red Blood Count 4.09 Hemoglobin 11.5 Hematocrit 33.8 Mean Corpuscular Volume 82.8 Mean Corpuscular Hemoglobin 28.0 Mean Corpuscular Hemoglobin Concent 33.9 Red Cell Distribution Width 13.6 Platelet Count 441 Mean Platelet Volume 7.7 Neutrophils (%) (Auto) 87.6 Lymphocytes (%) (Auto) 6.8 Monocytes (%) (Auto) 5.0 Eosinophils (%) (Auto) 0.2 Basophils (%) (Auto) 0.4 Neutrophils # (Auto) 19.1 Lymphocytes # (Auto) 1.5 Monocytes # (Auto) 1.1 Eosinophils # (Auto) 0.0 Basophils # (Auto) 0.1 CBC Comment AUTO DIFF Differential Total Cells Counted 100 Neutrophils % (Manual) 82 Band Neutrophils % 4 Lymphocytes % 7 Monocytes % 5 Basophils % 1 Neutrophils # (Manual) 19.0 Myelocytes 1 Differential Comment FINAL DIFF MANUAL Toxic Granulation 2+ Dohle Bodies PRESENT Platelet Estimate HIGH Platelet Morphology Comment NORMAL Prothrombin Time 11.4 Prothromb Time International Ratio 1.1 Activated Partial Thromboplast Time 26.4 Blood Urea Nitrogen 13 Creatinine 0.94 Random Glucose 111 Calcium Level 8.2 Sodium Level 130 Potassium Level 3.8 Chloride Level 98 Carbon Dioxide Level 22.3 Anion Gap 10 Estimat Glomerular Filtration Rate 85 Lactic Acid Level 1.9 Date/Time Source Procedure Growth Status 09/17/17 22:00 Blood Peripheral Aerobic Blood Culture Pending Received 09/17/17 22:00 Blood Peripheral Anaerobic Blood Culture Pending Received Result Diagram: 09/17/17214909/[id number] Caprini VTE Risk Assessment Caprini VTE Risk Assessment: No/Low Risk (score <= 1) Caprini Risk Assessment Model Point Value = 1 Point Value = 2 Point Value = 3 Point Value = 5 Age 41-60 Minor surgery BMI > 25 kg/m2 Swollen legs Varicose veins or History of unexplained or recurrent spontaneous Oral contraceptives or hormone replacement Sepsis (< 1 month) Serious lung disease, including pneumonia (< 1 month) Abnormal pulmonary function Acute myocardial infarction Congestive heart failure (< 1 month) History of inflammatory bowel disease Medical patient at bed rest Age 61-74 Arthroscopic surgery Major open surgery (> 45 min) Laparoscopic surgery (> 45 min) Malignancy Confined to bed (> 72 hours) Immobilizing plaster cast Central venous access Age >= 75 History of VTE Family history of VTE Factor V Leiden Prothrombin [id number] Lupus anticoagulant Anticardiolipin antibodies Elevated serum homocysteine Heparin-induced thrombocytopenia Other congenital or acquired thrombophilia Stroke (< 1 month) Elective arthroplasty Hip, pelvis, or leg fracture Acute spinal cord injury (< 1 month) Prophylaxis Regimen Total Risk Factor Score Risk Level Prophylaxis Regimen 0-1 Low Early ambulation 2 Moderate Order ONE of the following: *Sequential Compression Device (SCD) *Heparin 5000 units SQ BID 3-4 Higher Order ONE of the following medications: *Heparin 5000 units SQ TID *Enoxaparin/Lovenox 40 mg SQ daily (WT < 150 kg, CrCl > 30 mL/min) *Enoxaparin/Lovenox 30 mg SQ daily (WT < 150 kg, CrCl > 10-29 mL/min) *Enoxaparin/Lovenox 30 mg SQ BID (WT < 150 kg, CrCl > 30 mL/min) AND/OR *Sequential Compression Device (SCD) 5 or more Highest Order ONE of the following medications: *Heparin 5000 units SQ TID (Preferred with Epidurals) *Enoxaparin/Lovenox 40 mg SQ daily (WT < 150 kg, CrCl > 30 mL/min) *Enoxaparin/Lovenox 30 mg SQ daily (WT < 150 kg, CrCl > 10-29 mL/min) *Enoxaparin/Lovenox 30 mg SQ BID (WT < 150 kg, CrCl > 30 mL/min) AND *Sequential Compression Device (SCD) Assessment and Plan Problem List: (1) Sepsis ICD Code: A41.9 - Sepsis, unspecified organism Status: Acute (2) Bacteremia ICD Code: R78.81 - Bacteremia (3) UTI (urinary tract infection) ICD Code: N39.0 - Urinary tract infection, site not specified (4) CVA (cerebral vascular accident) ICD Code: I63.9 - Cerebral infarction, unspecified (5) Cocaine abuse ICD Code: F14.10 - Cocaine abuse, uncomplicated (6) Tobacco abuse ICD Code: Z72.0 - Tobacco use Assessment and Plan A/P: 1. Sepsis: Temp 101.8, HR 132, WBC 21.8, Source-likely UTI/Bacteremia from recent admit, +Pseudomonas. S/p Blood Cultures, Vanc/Zosyn in ER, follow up U/a , follow up cultures, continue IV Abx. 2. Bacteremia: Recent admit 09/10/17, Blood Cultures, +Pseudomonas, s/p eval by Dr. Roberson w/ ID, on Levaquin/Cefepime, concern for possible endocarditis , plan for NOHELIA w/ Dr. Rg however apparently pt LEFT AMA prior to completion. Follow up repeat cultures, continue IV Abx as above. Consult ID for further recommendations. 3. UTI: U/a w/ UTI on 09/10/17, pending repeat U/a. IVF, IV Abx. 4. CVA: h/o left-sided weakness on previous admit, MRI Brain 09/10/17 w/ small scattered bilateral infarcts predominantly in right MCA distribution, ? thromboembolic event. Echo 09/13/17 w/ EF 60%, no vegetation noted. Plan for NOHELIA however LEFT AMA. Will reconsult Dr. Rg to eval. 5. Cocaine Abuse: denies h/o Cocaine or IVDU, however last UDS positive for Cocaine. Repeat UDS. Ativan prn. 6. Tobacco Abuse: Pt counselled. Ativan/NicoDerm prn if needed. 7. DVT Prophylaxis: SCD/teds. 8. Social work for DC planning as needed. 9. Case discussed at length with ER physician. Physician Certification 2 Midnight Certification Type: Admission for Inpatient Services Order for Inpatient Services The services are ordered in accordance with Medicare regulations or non- Medicare payer requirements, as applicable. In the case of services not specified as inpatient-only, they are appropriately provided as inpatient services in accordance with the 2-midnight benchmark. Estimated LOS (days): 2 days is the estimated time the patient will need to remain in the hospital, assuming treatment plan goals are met and no additional complications. Post-Hospital Plan: Not yet determined Problem Qualifiers (1) Sepsis: Qualified Codes: A41.9 - Sepsis, unspecified organism Taylor Ventura MD Sep 17, 2017 23:49
[2017-09-18] VITALS (9 sets, daily range): BP systolic 98–186; BP diastolic 50–106; PULSE 68–104; RESP 18–20; TEMP 97.7–101.9; O2SAT 95–100
[2017-09-18] MEDS: LEVOFLOXACIN 750 MG PREMIX INJ 150 ML IV SCH (03:05)
[2017-09-18] MEDS: SODIUM CHLOR 0.9% 1000 ML INJ 1,000 ML IV SCH ×3 (03:05→18:02)
[2017-09-18] MEDS: CEFEPIME INJ 1,000 MG in SODIUM CHLORIDE 0.9% INJ 100 ML IV SCH ×2 (03:05→12:43)
[2017-09-18 05:30] LABS: AUTOMATED NEUTROPHIL # 17.2 TH/MM3 (1.8-7.7); BASOPHIL % 0.2 % (0.0-2.0); EOSINOPHIL % 0.1 % (0.0-4.0); HEMATOCRIT 32.7 % (39.0-51.0); HEMOGLOBIN 11.3 GM/DL (13.0-17.0); MEAN CORPUSCULAR HEMOGLOBIN 28.8 PG (27.0-34.0); MEAN CORPUSCULAR HGB CONC 34.7 % (32.0-36.0); MEAN PLATELET VOLUME 7.5 FL (7.0-11.0); MONO % 5.8 % (0.0-8.0); MONOCYTE # 1.1 TH/MM3 (0-0.9); NEUT % 88.9 % (16.0-70.0); PLATELET COUNT 393 TH/MM3 (150-450); RED BLOOD COUNT 3.94 MIL/MM3 (4.50-5.90); RED CELL DISTRIBUTION WIDTH 13.7 % (11.6-17.2); WHITE BLOOD COUNT 19.4 TH/MM3 (4.0-11.0)
[2017-09-18 06:03] LABS: ALBUMIN 2.3 GM/DL (3.4-5.0); ALT (GPT) 173 U/L (12-78); AST (GOT) 77 U/L (15-37); BICARBONATE 21.5 MEQ/L (21.0-32.0); BLOOD UREA NITROGEN 14 MG/DL (7-18); CHLORIDE 102 MEQ/L (98-107); CREATININE 0.87 MG/DL (0.60-1.30); GLOMERULAR FILTRATION RATE 93 ML/MIN (>89); GLUCOSE,RANDOM 109 MG/DL (74-106); SODIUM (NA) 133 MEQ/L (136-145)
[2017-09-18 06:05] LABS: ALKALINE PHOSPHATASE 116 U/L (45-117); TOTAL BILIRUBIN ADULT 0.5 MG/DL (0.2-1.0); TOTAL PROTEIN 6.9 GM/DL (6.4-8.2)
[2017-09-18] MEDS: ACETAMINOPHEN 325 MG TAB PO PRN ×2 (07:54→20:29)
[2017-09-18] MEDS ORDERED: PNEUMOCOCCAL POLYVALENT INJ 25 MCG/0.5 ML SYR IM ONE (09:00)
[2017-09-18] MEDS: DOCUSATE SODIUM 50 MG/SENNA 8.6 MG TAB PO SCH ×2 (09:08→20:29)
[2017-09-18] MEDS: SODIUM CHLORIDE 0.9% FLUSH 10 ML FLUSH IV FLUSH SCH ×2 (09:08→21:00)
--- NOTE | 2017-09-18 09:52 | HHI.PR ---
Subjective Remarks He is in bed eating. He appears in not acute distress at this time. No fever or chills overnight. The palpitations no nausea or vomiting no diarrhea or constipation. Has no chest pain or shortness of breath. He is not coughing. Blood cultures are positive we'll repeat today. Infectious disease consulted and following. Objective Vitals Vital Signs Date Time Temp Pulse Resp B/P (MAP) Pulse Ox O2 Delivery O2 Flow Rate FiO2 09/18/17 08:13 97.7 96 20 130/78 (95) 96 09/18/17 08:00 96 09/18/17 02:09 97.7 100 20 132/88 (103) 95 09/18/17 01:35 09/18/17 01:02 77 18 107/50 (69) 97 09/17/17 23:33 18 09/17/17 21:17 101.4 132 22 105/57 (73) 97 Room Air I/O 09/17/17 09/17/17 09/17/17 09/18/17 09/18/17 09/18/17 07:00 15:00 23:00 07:00 15:00 23:00 Intake Total 1662 ml 50 ml Output Total 0 ml Balance 1662 ml 50 ml Intake Oral 400 ml IV Total 1262 ml 50 ml Output Urine Total 0 ml # Bowel Movements 0 Result Diagram: 09/18/17 0510 09/18/17 0510 Objective Remarks GENERAL: Middle-aged male in no acute distress. HEENT: PERRLA, EOMI. No scleral icterus or conjunctival pallor. No lid lag or facial droop. CARDIOVASCULAR: Regular rate and rhythm. No obvious murmurs to auscultation. No chest tenderness to palpation. RESPIRATORY: No obvious rhonchi or wheezing. Clear to auscultation. Breath sounds equal bilaterally. GASTROINTESTINAL: Abdomen soft, non-tender, nondistended. BS normal. MUSCULOSKELETAL: Extremities without clubbing, cyanosis, or edema. No obvious deformities. A/P Problem List: (1) Sepsis ICD Code: A41.9 - Sepsis, unspecified organism Status: Acute (2) Bacteremia ICD Code: R78.81 - Bacteremia (3) UTI (urinary tract infection) ICD Code: N39.0 - Urinary tract infection, site not specified (4) CVA (cerebral vascular accident) ICD Code: I63.9 - Cerebral infarction, unspecified (5) Cocaine abuse ICD Code: F14.10 - Cocaine abuse, uncomplicated (6) Tobacco abuse ICD Code: Z72.0 - Tobacco use Assessment and Plan 1. Sepsis: Temp 101.8, HR 132, WBC 21.8, Source-likely UTI/Bacteremia from recent admit, +Pseudomonas. S/p Blood Cultures, Vanc/Zosyn in ER, follow up U/a , follow up cultures, continue IV Abx. 2. Bacteremia: Recent admit 09/10/17, Blood Cultures, +Pseudomonas, s/p eval by Dr. Roberson w/ ID, on Levaquin/Cefepime, concern for possible endocarditis , plan for NOHELIA w/ Dr. Rg however apparently pt LEFT AMA prior to completion. Follow up repeat cultures, continue IV Abx as above. Consult ID for further recommendations. Repeat blood cultures 09/18/17 3. UTI: U/a w/ UTI on 09/10/17, pending repeat U/a. IVF, IV Abx. 4. CVA: h/o left-sided weakness on previous admit, MRI Brain 09/10/17 w/ small scattered bilateral infarcts predominantly in right MCA distribution, ? thromboembolic event. Echo 09/13/17 w/ EF 60%, no vegetation noted. Plan for NOHELIA however LEFT AMA. Will reconsult Dr. Rg to eval. 5. Cocaine Abuse: denies h/o Cocaine or IVDU, however last UDS positive for Cocaine. Repeat UDS. Ativan prn. 6.Tobacco Abuse: Pt counselled. Ativan/NicoDerm prn if needed. DVT Prophylaxis: SCD/teds. CM for DC planning as needed. Discussed with the patient, nurse DC plan: Pending improvement and clearance by consultants Problem Qualifiers (1) Sepsis: Qualified Codes: A41.9 - Sepsis, unspecified organism Deena Aguirre MD Sep 18, 2017 09:52
[2017-09-18 13:08] LABS: BILIRUBIN, URINE NEG (NEG); BLOOD, URINE TRACE (NEG); GLUCOSE,URINE NEG (NEG); KETONE, URINE NEG (NEG); MUCUS URINE FEW /lpf (OCC); NITRITE,URINE NEG (NEG); PH, URINE 5.5 (5.0-8.5); URINE COLOR YELLOW (YELLW/STRAW); URINE LEUKOCYTE ESTERASE NEG (NEG)
--- NOTE | 2017-09-18 15:00 | MB ---
cc: LESLIE RG MD DATE OF CONSULTATION: 09/18/2017. HISTORY OF PRESENT ILLNESS: Mr. Holcomb is a 52-year-old white male with history of smoking and cocaine use and recent admission for a stroke. He presented with generalized malaise, fatigue, fevers and chills. He underwent transesophageal echocardiogram earlier this week, which showed no evidence of endocarditis. PAST MEDICAL HISTORY: His past medical history is negative for hypertension, dyslipidemia, diabetes mellitus, coronary artery disease or CVA. MEDICATIONS: His medications include: 1. Rocephin. 2. Cefepime. ALLERGIES None. SOCIAL HISTORY: The patient is a smoker. His urine drug screen was positive for cocaine. He does not drink alcohol. FAMILY HISTORY: Family history is negative for heart disease. REVIEW OF SYSTEMS: The review of systems is otherwise negative. PHYSICAL EXAMINATION: VITAL SIGNS: Blood pressure is 120/56, pulse 68 and regular. HEAD, EYES, EARS, NOSE, THROAT: Negative. NECK: 2+ carotid upstrokes, no bruits. LUNGS: Clear. HEART: Regular with no murmurs or rubs. ABDOMEN: Abdomen soft. No bruits. EXTREMITIES: Without edema. 2+ distal pulses. NEUROLOGIC: Grossly nonfocal. Telemetry shows sinus rhythm. DIAGNOSIS: 1. Sepsis. 2. Bacteremia. 3. Urinary tract infection. 4. Recent CVA. 5. Cocaine abuse. 6. Tobacco abuse. DISPOSITION: Mr. Holcomb presented with sepsis. He was started on antibiotics. His recent transesophageal echocardiogram showed no evidence of valvular regurgitations. I recommend to continue his current medical program. The patient again requests to be discharged as soon as possible. He left against medical advice earlier this week after his transesophageal echocardiogram was completed. I will follow him for cardiology during his hospitalization. Leslie Rg MD OQ/MOSES /2:34 PM /2:39 PM MTDD
[2017-09-18 15:05] LABS: LACTIC ACID SEPSIS PROTOCOL 3.4 mmol/L (0.4-2.0)
[2017-09-19] VITALS (10 sets, daily range): BP systolic 101–133; BP diastolic 55–62; PULSE 77–98; RESP 17–20; TEMP 97.4–100.5; O2SAT 98–100
[2017-09-19] MEDS: CEFEPIME INJ 1,000 MG in SODIUM CHLORIDE 0.9% INJ 100 ML IV SCH ×2 (00:25→12:20)
[2017-09-19] MEDS: LEVOFLOXACIN 750 MG PREMIX INJ 150 ML IV SCH (01:04)
[2017-09-19 06:54] LABS: BASOPHIL # 0.1 TH/MM3 (0-0.2); BASOPHIL % 0.4 % (0.0-2.0); EOSINOPHIL % 0.1 % (0.0-4.0); HEMATOCRIT 32.2 % (39.0-51.0); HEMOGLOBIN 10.9 GM/DL (13.0-17.0); LYMPH % 7.4 % (9.0-44.0); LYMPHOCYTE # 1.3 TH/MM3 (1.0-4.8); MEAN CORPUSCULAR HEMOGLOBIN 28.5 PG (27.0-34.0); MEAN CORPUSCULAR HGB CONC 33.9 % (32.0-36.0); MONO % 4.5 % (0.0-8.0); MONOCYTE # 0.8 TH/MM3 (0-0.9); NEUT % 87.6 % (16.0-70.0); PLATELET COUNT 395 TH/MM3 (150-450); RED BLOOD COUNT 3.83 MIL/MM3 (4.50-5.90); WHITE BLOOD COUNT 17.2 TH/MM3 (4.0-11.0)
[2017-09-19 07:05] LABS: CALCIUM 8.1 MG/DL (8.5-10.1); CREATININE 0.79 MG/DL (0.60-1.30)
[2017-09-19] MEDS: DOCUSATE SODIUM 50 MG/SENNA 8.6 MG TAB PO SCH ×2 (09:00→21:00)
[2017-09-19] MEDS: ACETAMINOPHEN 325 MG TAB PO PRN (09:04)
[2017-09-19] MEDS: SODIUM CHLORIDE 0.9% FLUSH 10 ML FLUSH IV FLUSH SCH ×2 (09:05→22:26)
[2017-09-19] MEDS: SODIUM CHLOR 0.9% 1000 ML INJ 1,000 ML IV SCH ×2 (12:24→15:44)
--- NOTE | 2017-09-19 13:04 | HHI.PR ---
Subjective Remarks Follow-up sepsis, bacteremia. The patient has no complaints at this time. Denies chest pain, dyspnea, nausea, vomiting. He has continued to have fever. Objective Vitals Vital Signs Date Time Temp Pulse Resp B/P (MAP) Pulse Ox O2 Delivery O2 Flow Rate FiO2 09/19/17 12:20 98.4 79 20 101/55 (70) 99 09/19/17 11:15 91 09/19/17 07:45 100.5 96 20 119/58 (78) 100 09/19/17 05:26 97.7 94 18 133/62 (85) 100 09/19/17 01:03 97.4 77 18 124/58 (80) 99 09/18/17 20:22 101.9 104 18 134/61 (85) 97 09/18/17 17:30 85 09/18/17 15:57 98.3 90 20 123/58 (79) 100 09/18/17 14:05 98.5 120/56 (77) I/O 09/18/17 09/18/17 09/18/17 09/19/17 09/19/17 09/19/17 07:00 15:00 23:00 07:00 15:00 23:00 Intake Total 1662 ml 1150 ml 960 ml Output Total 0 ml 400 ml 2200 ml 700 ml Balance 1662 ml 1150 ml 560 ml -2200 ml -700 ml Intake Oral 400 ml 960 ml IV Total 1262 ml 1150 ml Output Urine Total 0 ml 400 ml 2200 ml 700 ml # Bowel Movements 0 2 Result Diagram: 09/19/17 0549 09/19/17 0549 Objective Remarks General: Disheveled male in no acute distress. Heart: Regular rate and rhythm. No murmur. Lungs: Clear to auscultation bilaterally. No wheezes, rales, or rhonchi. Breathing is nonlabored. Abdomen: Soft, nontender, nondistended. Extremities: No lower extremity edema. Psych: Alert and oriented. Procedures None Urinary Catheter: No Vascular Central Line Catheter: No A/P Problem List: (1) Sepsis ICD Code: A41.9 - Sepsis, unspecified organism Status: Acute (2) Bacteremia ICD Code: R78.81 - Bacteremia (3) UTI (urinary tract infection) ICD Code: N39.0 - Urinary tract infection, site not specified (4) CVA (cerebral vascular accident) ICD Code: I63.9 - Cerebral infarction, unspecified (5) Cocaine abuse ICD Code: F14.10 - Cocaine abuse, uncomplicated (6) Tobacco abuse ICD Code: Z72.0 - Tobacco use Assessment and Plan 1. Sepsis: Patient presented with fever, tachycardia, leukocytosis. Source UTI/ bacteremia. Continue IV antibiotics. Infectious disease consultation pending. 2. Bacteremia: Blood cultures growing Pseudomonas and enterococcus. Continue antibiotics. Patient had NOHELIA done by Dr. Rg on 09/15/17, but left AGAINST MEDICAL ADVICE following the procedure. No documentation is available from the procedure, however per Dr. Rg's consult, NOHELIA showed no evidence of vegetation. 3. UTI: Urinalysis improved. On antibiotics. 4. CVA: Patient had left-sided weakness on direct admission. He was evaluated by neurology at that time. MRI of the brain on 09/10/17 showed small scattered bilateral infarcts predominantly in the right MCA distribution. Resume aspirin. Avoid statin due to elevated LFTs. Recheck LFTs in the morning. 5. Cocaine abuse: Urine drug screen positive for cocaine on admission last week. Patient denies history of cocaine or IV drug use. 6. Tobacco abuse: Counseled to quit smoking. 7. DVT prophylaxis: ELIEL Aguilar. Problem Qualifiers (1) Sepsis: Qualified Codes: A41.9 - Sepsis, unspecified organism Lev Uribe MD Sep 19, 2017 13:04
[2017-09-19] MEDS: ASPIRIN EC 81 MG TABEC PO SCH (15:27)
--- NOTE | 2017-09-19 17:10 | PD.CARD.PN ---
Subjective Subjective Remarks No CP or SOB, no c/o Objective Medications Current Medications Medications (Trade) Dose Ordered Sig/Vikas Route Start Time Stop Time Status Last Admin Cefepime HCl 1000 mg/Sodium Chloride 100 ml @ 200 mls/hr Q12H IV 09/18/17 01:00 09/19/17 12:20 Levofloxacin/ Dextrose 150 ml @ 100 mls/hr Q24H IV 09/18/17 02:00 09/19/17 01:04 Sodium Chloride 1,000 ml @ 100 mls/hr Q10H IV 09/17/17 23:44 09/19/17 12:24 (NS Flush) 2 ml UNSCH PRN IV FLUSH 09/17/17 23:45 (NS Flush) 2 ml BID IV FLUSH 09/18/17 09:00 09/19/17 09:05 (Zofran Inj) 4 mg Q6H PRN IVP 09/17/17 23:45 (Tylenol) 650 mg Q6H PRN PO 09/17/17 23:45 09/19/17 09:04 (Roxicodone) 10 mg Q4H PRN PO 09/17/17 23:45 (Roxicodone) 5 mg Q4H PRN PO 09/17/17 23:45 (Arabella-Colace) 1 tab BID PO 09/18/17 09:00 09/18/17 20:29 (Milk Of Magnesia Liq) 30 ml Q12H PRN PO 09/17/17 23:45 (Senokot) 17.2 mg Q12H PRN PO 09/17/17 23:45 (Dulcolax Supp) 10 mg DAILY PRN RECTAL 09/17/17 23:45 (Lactulose Liq) 30 ml DAILY PRN PO 09/17/17 23:45 (Ecotrin Ec) 162 mg DAILY PO 09/19/17 13:15 09/19/17 15:27 Vital Signs / I&O Vital Signs Date Time Temp Pulse Resp B/P (MAP) Pulse Ox O2 Delivery O2 Flow Rate FiO2 09/19/17 16:00 98.8 86 17 113/56 (75) 100 09/19/17 12:30 92 09/19/17 12:20 98.4 79 20 101/55 (70) 99 09/19/17 11:15 91 09/19/17 07:45 100.5 96 20 119/58 (78) 100 09/19/17 05:26 97.7 94 18 133/62 (85) 100 09/19/17 01:03 97.4 77 18 124/58 (80) 99 09/18/17 20:22 101.9 104 18 134/61 (85) 97 09/18/17 17:30 85 I/O 09/18/17 09/18/17 09/18/17 09/19/17 09/19/17 09/19/17 07:00 15:00 23:00 07:00 15:00 23:00 Intake Total 1662 ml 1150 ml 960 ml 988 ml 100 ml Output Total 0 ml 400 ml 2200 ml 700 ml Balance 1662 ml 1150 ml 560 ml -1212 ml -600 ml Intake Oral 400 ml 960 ml IV Total 1262 ml 1150 ml 988 ml 100 ml Output Urine Total 0 ml 400 ml 2200 ml 700 ml # Bowel Movements 0 2 Physical Exam GENERAL: In NAD SKIN: Warm and dry. HEAD: Normocephalic. EYES: No scleral icterus. No injection or drainage. NECK: Supple, trachea midline. No JVD or lymphadenopathy. CARDIOVASCULAR: Regular rate and rhythm without murmurs, gallops, or rubs. RESPIRATORY: Breath sounds equal bilaterally. No accessory muscle use. GASTROINTESTINAL: Abdomen soft, non-tender, nondistended. MUSCULOSKELETAL: No cyanosis, or edema. Laboratory Laboratory Tests Test 09/18/17 17:50 09/19/17 05:49 Lactic Acid Level 3.0 mmol/L White Blood Count 17.2 TH/MM3 Red Blood Count 3.83 MIL/MM3 Hemoglobin 10.9 GM/DL Hematocrit 32.2 % Mean Corpuscular Volume 84.0 FL Mean Corpuscular Hemoglobin 28.5 PG Mean Corpuscular Hemoglobin Concent 33.9 % Red Cell Distribution Width 14.0 % Platelet Count 395 TH/MM3 Mean Platelet Volume 8.0 FL Neutrophils (%) (Auto) 87.6 % Lymphocytes (%) (Auto) 7.4 % Monocytes (%) (Auto) 4.5 % Eosinophils (%) (Auto) 0.1 % Basophils (%) (Auto) 0.4 % Neutrophils # (Auto) 15.0 TH/MM3 Lymphocytes # (Auto) 1.3 TH/MM3 Monocytes # (Auto) 0.8 TH/MM3 Eosinophils # (Auto) 0.0 TH/MM3 Basophils # (Auto) 0.1 TH/MM3 CBC Comment DIFF FINAL Differential Comment Blood Urea Nitrogen 14 MG/DL Creatinine 0.79 MG/DL Random Glucose 114 MG/DL Calcium Level 8.1 MG/DL Sodium Level 133 MEQ/L Potassium Level 3.8 MEQ/L Chloride Level 101 MEQ/L Carbon Dioxide Level 25.0 MEQ/L Anion Gap 7 MEQ/L Estimat Glomerular Filtration Rate 104 ML/MIN Assessment and Plan Problem List: (1) Sepsis ICD Codes: A41.9 - Sepsis, unspecified organism Status: Acute (2) Bacteremia ICD Codes: R78.81 - Bacteremia (3) UTI (urinary tract infection) ICD Codes: N39.0 - Urinary tract infection, site not specified (4) CVA (cerebral vascular accident) ICD Codes: I63.9 - Cerebral infarction, unspecified (5) Cocaine abuse ICD Codes: F14.10 - Cocaine abuse, uncomplicated Assessment and Plan No new cardiac issues. Continue tx for sepsis as per ID. Recent NOHELIA with no evidence of endocarditis. Counseled to stop using cocaine. Increase activity. Problem Qualifiers (1) Sepsis: Qualified Codes: A41.9 - Sepsis, unspecified organism Leslie Rg MD Sep 19, 2017 17:10
[2017-09-20] VITALS: BP 115/57; PULSE 84; PULSE 89; RESP 18; TEMP 98.4; O2SAT 98
[2017-09-20] MEDS: CEFEPIME INJ 1,000 MG in SODIUM CHLORIDE 0.9% INJ 100 ML IV SCH ×2 (01:27→11:49)
[2017-09-20] MEDS: SODIUM CHLOR 0.9% 1000 ML INJ 1,000 ML IV SCH (01:44)
[2017-09-20] MEDS: LEVOFLOXACIN 750 MG PREMIX INJ 150 ML IV SCH (02:29)
[2017-09-20 04:00] VITALS: BP 107/53; PULSE 80; PULSE 88; RESP 18; TEMP 99.6; O2SAT 98
[2017-09-20 07:56] LABS: AUTOMATED NEUTROPHIL # 9.7 TH/MM3 (1.8-7.7); BASOPHIL # 0.1 TH/MM3 (0-0.2); BASOPHIL % 0.4 % (0.0-2.0); EOSINOPHIL % 0.4 % (0.0-4.0); HEMATOCRIT 31.4 % (39.0-51.0); HEMOGLOBIN 10.7 GM/DL (13.0-17.0); LYMPH % 16.5 % (9.0-44.0); LYMPHOCYTE # 2.1 TH/MM3 (1.0-4.8); MEAN CELL VOLUME 83.8 FL (80.0-100.0); MEAN CORPUSCULAR HEMOGLOBIN 28.6 PG (27.0-34.0); MEAN CORPUSCULAR HGB CONC 34.1 % (32.0-36.0); MEAN PLATELET VOLUME 7.7 FL (7.0-11.0); MONO % 6.5 % (0.0-8.0); MONOCYTE # 0.8 TH/MM3 (0-0.9); NEUT % 76.2 % (16.0-70.0); PLATELET COUNT 403 TH/MM3 (150-450); RED BLOOD COUNT 3.75 MIL/MM3 (4.50-5.90); RED CELL DISTRIBUTION WIDTH 13.8 % (11.6-17.2); WHITE BLOOD COUNT 12.7 TH/MM3 (4.0-11.0)
[2017-09-20 08:00] VITALS: BP 102/54; PULSE 82; PULSE 83; RESP 18; TEMP 98.2; O2SAT 98
[2017-09-20 08:35] LABS: ALBUMIN 2.1 GM/DL (3.4-5.0); ALKALINE PHOSPHATASE 94 U/L (45-117); ALT (GPT) 216 U/L (12-78); AST (GOT) 173 U/L (15-37); BICARBONATE 27.6 MEQ/L (21.0-32.0); BLOOD UREA NITROGEN 10 MG/DL (7-18); CALCIUM 8.2 MG/DL (8.5-10.1); CHLORIDE 102 MEQ/L (98-107); CREATININE 0.75 MG/DL (0.60-1.30); GLOMERULAR FILTRATION RATE 110 ML/MIN (>89); GLUCOSE,RANDOM 101 MG/DL (74-106); SODIUM (NA) 135 MEQ/L (136-145); TOTAL BILIRUBIN ADULT 0.2 MG/DL (0.2-1.0); TOTAL PROTEIN 6.7 GM/DL (6.4-8.2)
[2017-09-20] MEDS: SODIUM CHLORIDE 0.9% FLUSH 10 ML FLUSH IV FLUSH SCH ×2 (09:00→21:00)
[2017-09-20] MEDS: DOCUSATE SODIUM 50 MG/SENNA 8.6 MG TAB PO SCH ×3 (09:00→21:00)
[2017-09-20] MEDS: ASPIRIN EC 81 MG TABEC PO SCH (09:04)
[2017-09-20 12:00] VITALS: BP 111/56; PULSE 95; RESP 18; TEMP 97.8; O2SAT 97
--- NOTE | 2017-09-20 14:04 | MB ---
cc: JEREMIAH ROBERSON MD, CAMILLE MD DATE OF : 1965 DATE OF CONSULTATION: 09/20/2017 REQUESTING PHYSICIAN: Dr. Ventura REASON FOR CONSULTATION: Sepsis/bacteremia, possible endocarditis. HISTORY OF PRESENT ILLNESS This is a 52-year-old white male who was recently treated in the hospital for Pseudomonas sepsis. The patient was admitted on September 10, and was treated for Pseudomonas bacteremia and Pseudomonas urinary tract infection. The patient underwent NOHELIA to evaluate for endocarditis on 09/15 and he left the hospital soon after the procedure against medical advice. He was diagnosed with lacunar stroke. It is reported that NOHELIA which was done prior to him leaving the hospital showed no vegetation of the valve of the heart. He did not take any antibiotics after he left the hospital. He came back to the hospital with fever on 09/15/2017. He had temperature up to 101.9 degrees. It is reported that he was given a prescription for p.o. Levaquin when he left the hospital but he never took the medication outpatient. His blood cultures are positive for Pseudomonas again on 09/17 and 09/18. He is currently on IV antibiotics. He states that he feels well. He has some problems with word finding but otherwise denies other complaints including chills, nausea, vomiting, shortness of breath, dysuria, cough, or other complaints. He reports that he also was not taking medications for the stroke after he left the hospital. His white count on admission was 21.8 and it is now down to 12.7. Ultrasound was unremarkable. PAST MEDICAL HISTORY CVA. ALLERGIES NO KNOWN DRUG ALLERGIES. MEDICATIONS 1. Cefepime 2. Levaquin 3. Arabella-Colace. 4. Aspirin. 5. Tylenol p.r.n. SOCIAL HISTORY The patient smokes half-a-pack of cigarettes a day. No alcohol use. He previously used IV drugs prior to last hospitalization but denies IV drug use after he left the hospital on September 15. FAMILY HISTORY Noncontributory. REVIEW OF SYSTEMS: Negative on 10-point review. PHYSICAL EXAMINATION This is a thin frail-appearing male who is in no acute distress. He is awake and alert and oriented. Vital signs: Temperature 97.8, BP 111/56, respirations 18, heart rate 95. HEENT: Head is atraumatic. Extraocular movements grossly intact, pupils reactive to light. No icterus. No conjunctival erythema. Oropharynx: moist mucosa. No lesions. Neck: Supple without adenopathy. Lungs: Decreased breath sounds but clear. Heart: Regular S1-S2 without audible murmurs, rubs or gallops. Abdomen: Bowel sounds present, soft, nontender, flat. Rectal: Not performed. Extremities: No clubbing, cyanosis or edema. The right index finger has an area of swelling at the distal interphalangeal joint at the palmar aspect which is very firm and hard but no opening of the wound or drainage. This appears to be nodular and firm. Neuro: Speech abnormality, otherwise nonfocal except for some weakness of his right side. Psych: The patient is calm and cooperative. LABORATORY DATA WBC 12.7, platelets 43, hemoglobin 10.7, 76% neutrophils, creatinine 0.75, BUN 10, sodium 135, AST 173, ALT 216. Toxicology screen on 09/18 was positive for cannabinoids. Blood culture on 07/19 was positive for Pseudomonas aeruginosa. IMPRESSION 1. Persistent bacteremia in a patient with fever and elevated white blood cell count 2. No clear source of infection except for the prior urine positive culture during last hospitalization. However, the urine on this hospitalization was unremarkable but the blood culture has still remained positive. He probably has some foci of infection hidden that we have not yet unmasked. The culture from 09/17 also had Enterococcus faecalis along with the Pseudomonas but the subsequent blood culture has only Pseudomonas. Prior NOHELIA reportedly did not reveal any evidence of endocarditis. RECOMMENDATIONS 1. Continue cefepime. 2. Continue Levaquin. 3. Obtain MRI scan of the thoracic and lumbar spine and also of the pelvis in an effort to try to discover the source of the bacteremia. The positive culture does suggest possible deep seated infection but the patient does not really have much in the way of symptoms to help guide the additional workup. Thank you for the consultation. I will monitor the patient's progress and make further recommendations upon followup. Jeremiah Roberson MD FD/JESUS /1:04 PM /1:29 PM
--- NOTE | 2017-09-20 14:24 | HHI.PR ---
Subjective Remarks Follow up bacteremia. Patient states that he feels "good" today. No pain. He states that he has an area of swelling on his right index finger for the past 1- 2 years. It started when a chisel went into the skin. He states that a week or 2 ago, he noted that the swollen area "broke open inside". No open wound or drainage. Objective Vitals Vital Signs Date Time Temp Pulse Resp B/P (MAP) Pulse Ox O2 Delivery O2 Flow Rate FiO2 09/20/17 12:00 97.8 95 18 111/56 (74) 97 09/20/17 08:00 98.2 83 18 102/54 (70) 98 09/20/17 04:00 80 09/20/17 04:00 99.6 88 18 107/53 (71) 98 09/20/17 00:00 84 09/20/17 00:00 98.4 89 18 115/57 (76) 98 09/19/17 20:00 99.6 98 18 110/55 (73) 98 09/19/17 20:00 90 09/19/17 16:25 84 09/19/17 16:00 98.8 86 17 113/56 (75) 100 I/O 09/19/17 09/19/17 09/19/17 09/20/17 09/20/17 09/20/17 07:00 15:00 23:00 07:00 15:00 23:00 Intake Total 988 ml 100 ml 370 ml 120 ml Output Total 2200 ml 700 ml 800 ml Balance -1212 ml -600 ml 370 ml 120 ml -800 ml Intake Oral 120 ml IV Total 988 ml 100 ml 370 ml Output Urine Total 2200 ml 700 ml 800 ml # Bowel Movements 2 Result Diagram: 09/20/1772409/20/17723 Objective Remarks General: Disheveled male in no acute distress. Heart: Regular rate and rhythm. No murmur. Lungs: Clear to auscultation bilaterally. No wheezes, rales, or rhonchi. Breathing is nonlabored. Abdomen: Soft, nontender, nondistended. Extremities: No lower extremity edema. Right index finger with area of swelling just distal to the PIP joint. No open wound or drainage. +fluctuance Psych: Alert and oriented. Procedures None Urinary Catheter: No Vascular Central Line Catheter: No A/P Problem List: (1) Sepsis ICD Code: A41.9 - Sepsis, unspecified organism Status: Acute (2) Bacteremia ICD Code: R78.81 - Bacteremia (3) UTI (urinary tract infection) ICD Code: N39.0 - Urinary tract infection, site not specified (4) CVA (cerebral vascular accident) ICD Code: I63.9 - Cerebral infarction, unspecified (5) Cocaine abuse ICD Code: F14.10 - Cocaine abuse, uncomplicated (6) Tobacco abuse ICD Code: Z72.0 - Tobacco use Assessment and Plan 1. Sepsis: Patient presented with fever, tachycardia, leukocytosis. Source UTI/ bacteremia. Continue IV antibiotics. Infectious disease consultation pending. 2. Bacteremia: Blood cultures growing Pseudomonas and enterococcus. Continue antibiotics. Patient had NOHELIA done by Dr. Rg on 09/15/17, but left AGAINST MEDICAL ADVICE following the procedure. No documentation is available from the procedure, however per Dr. Rg's consult, NOHELIA showed no evidence of vegetation. No source of infection has been identified. MRIs ordered by infectious disease. Consult hand surgery to further evaluate right index finger. 3. UTI: Urinalysis improved. On antibiotics. 4. CVA: Patient had left-sided weakness on direct admission. He was evaluated by neurology at that time. MRI of the brain on 09/10/17 showed small scattered bilateral infarcts predominantly in the right MCA distribution. Resume aspirin. Avoid statin due to elevated LFTs. Monitor LFTs. 5. Cocaine abuse: Urine drug screen positive for cocaine on admission last week. Patient denies history of cocaine or IV drug use. 6. Tobacco abuse: Counseled to quit smoking. 7. DVT prophylaxis: ELIEL Aguilar. Problem Qualifiers (1) Sepsis: Qualified Codes: A41.9 - Sepsis, unspecified organism Lev Uribe MD Sep 20, 2017 14:24
--- NOTE | 2017-09-20 15:14 | RADRPT ---
EXAM DATE/TIME: 09/20/2017 14:47 [facility] COMPARISON: No previous studies available for comparison. INDICATIONS : Right 2nd digit swelling for 2 weeks with no known injury MEDICAL HISTORY : None. SURGICAL HISTORY : None. ENCOUNTER: Initial ACUITY: 2 weeks PAIN SCORE: 5/10 LOCATION: Right 2nd digit FINDINGS: 3 views of the right hand. There is focal soft tissue prominence/swelling at the lateral aspect of th e index finger medially adjacent to the middle phalanx. No evidence of bone erosion. Bone alignment w ithin normal limits. No evidence of acute fracture. Old fracture deformity of the fifth metacarpal. S mall bowel interphalangeal joint osteophytes. CONCLUSION: Focal soft tissue prominence at the lateral aspect of the index finger adjacent to the middle phalanx . Orion Reid MD on September 20, 2017 at 15:11 Board Certified Radiologist. This report was verified electronically.
[2017-09-20 16:00] VITALS: BP 130/56; PULSE 108; RESP 18; TEMP 98.8; O2SAT 97
--- NOTE | 2017-09-20 17:28 | MB ---
cc: MICHELLE IRIZARRY DATE OF CONSULTATION 09/20/2017 REASON FOR CONSULTATION Mass right hand. HISTORY OF PRESENT ILLNESS Jarod Holcomb is a 52-year-old male who was readmitted on 09/17/2017 after sustaining a stroke with sepsis with positive blood cultures for Pseudomonas and Enterococcus. I was asked to evaluate his right hand today on 09/20/2017. The patient states he has had swelling over the right index finger volar aspect for the past 2 years. He also has an old fracture to the right fifth metacarpal with a mass volarly which again has been present for many years. No acute pain or paresthesias or open wounds over the right hand. He is right-hand dominant. Since readmission white count is trending down from 21.8 to 12.7. PHYSICAL EXAMINATION GENERAL: The patient is alert and oriented. RIGHT HAND: Exam of the right hand shows no erythema, no open wounds. The patient does have a mass in the volar aspect of the right index finger as well as the volar aspect of the right palm at the level of the fifth metacarpophalangeal joint. He has no pain with range of motion of the fingers. Function is intact of FDS and FDP. No tenderness along the flexor tendon sheath. Sensation is intact on the radial and ulnar sides. Less than 2-second capillary refill. LABORATORY DATA Again, blood cultures positive for Pseudomonas and Enterococcus. X-RAYS X-rays of the right hand show soft tissue mass over the index finger as well as the fifth metacarpal as well as old fracture. ASSESSMENT AND PLAN A 52-year-old male admitted for sepsis with two masses over the right hand which do not show any sign of infection. At this time we will follow him conservatively. No indication for surgical intervention. He may follow up as an outpatient. Michelle Irizarry MD SH/SSB /5:01 PM /5:08 PM MTDYamilex
[2017-09-20 20:00] VITALS: BP 111/53; PULSE 90; RESP 20; TEMP 98.5; O2SAT 98
--- NOTE | 2017-09-20 20:48 | PD.CARD.PN ---
Subjective Subjective Remarks No CP or SOB, no c/o, suspect pt smoking in the bathroom Objective Medications Current Medications Medications (Trade) Dose Ordered Sig/Vikas Route Start Time Stop Time Status Last Admin Cefepime HCl 1000 mg/Sodium Chloride 100 ml @ 200 mls/hr Q12H IV 09/18/17 01:00 09/20/17 11:49 Levofloxacin/ Dextrose 150 ml @ 100 mls/hr Q24H IV 09/18/17 02:00 09/20/17 02:29 Sodium Chloride 1,000 ml @ 100 mls/hr Q10H IV 09/17/17 23:44 09/19/17 12:24 (NS Flush) 2 ml UNSCH PRN IV FLUSH 09/17/17 23:45 (NS Flush) 2 ml BID IV FLUSH 09/18/17 09:00 09/20/17 09:00 (Zofran Inj) 4 mg Q6H PRN IVP 09/17/17 23:45 (Tylenol) 650 mg Q6H PRN PO 09/17/17 23:45 09/19/17 09:04 (Roxicodone) 10 mg Q4H PRN PO 09/17/17 23:45 (Roxicodone) 5 mg Q4H PRN PO 09/17/17 23:45 (Arabella-Colace) 1 tab BID PO 09/18/17 09:00 09/18/17 20:29 (Milk Of Magnesia Liq) 30 ml Q12H PRN PO 09/17/17 23:45 (Senokot) 17.2 mg Q12H PRN PO 09/17/17 23:45 (Dulcolax Supp) 10 mg DAILY PRN RECTAL 09/17/17 23:45 (Lactulose Liq) 30 ml DAILY PRN PO 09/17/17 23:45 (Ecotrin Ec) 162 mg DAILY PO 09/19/17 13:15 09/20/17 09:04 Vital Signs / I&O Vital Signs Date Time Temp Pulse Resp B/P (MAP) Pulse Ox O2 Delivery O2 Flow Rate FiO2 09/20/17 16:00 98.8 108 18 130/56 (80) 97 09/20/17 12:00 97.8 95 18 111/56 (74) 97 09/20/17 08:00 98.2 83 18 102/54 (70) 98 09/20/17 08:00 82 09/20/17 04:00 80 09/20/17 04:00 99.6 88 18 107/53 (71) 98 09/20/17 00:00 84 09/20/17 00:00 98.4 89 18 115/57 (76) 98 I/O 09/19/17 09/19/17 09/19/17 09/20/17 09/20/17 09/20/17 07:00 15:00 23:00 07:00 15:00 23:00 Intake Total 988 ml 100 ml 370 ml 120 ml 760 ml Output Total 2200 ml 700 ml 800 ml Balance -1212 ml -600 ml 370 ml 120 ml -40 ml Intake Oral 120 ml 760 ml IV Total 988 ml 100 ml 370 ml Output Urine Total 2200 ml 700 ml 800 ml # Voids 4 # Bowel Movements 2 1 Physical Exam GENERAL: In NAD SKIN: Warm and dry. HEAD: Normocephalic. EYES: No scleral icterus. No injection or drainage. NECK: Supple, trachea midline. No JVD or lymphadenopathy. CARDIOVASCULAR: Regular rate and rhythm without murmurs, gallops, or rubs. RESPIRATORY: Breath sounds equal bilaterally. No accessory muscle use. GASTROINTESTINAL: Abdomen soft, non-tender, nondistended. MUSCULOSKELETAL: No cyanosis, or edema. Laboratory Laboratory Tests Test 09/20/17 07:24 09/20/17 07:25 Blood Urea Nitrogen 10 MG/DL Creatinine 0.75 MG/DL Random Glucose 101 MG/DL Total Protein 6.7 GM/DL Albumin 2.1 GM/DL Calcium Level 8.2 MG/DL Alkaline Phosphatase 94 U/L Aspartate Amino Transf (AST/SGOT) 173 U/L Alanine Aminotransferase (ALT/SGPT) 216 U/L Total Bilirubin 0.2 MG/DL Sodium Level 135 MEQ/L Potassium Level 4.3 MEQ/L Chloride Level 102 MEQ/L Carbon Dioxide Level 27.6 MEQ/L Anion Gap 5 MEQ/L Estimat Glomerular Filtration Rate 110 ML/MIN White Blood Count 12.7 TH/MM3 Red Blood Count 3.75 MIL/MM3 Hemoglobin 10.7 GM/DL Hematocrit 31.4 % Mean Corpuscular Volume 83.8 FL Mean Corpuscular Hemoglobin 28.6 PG Mean Corpuscular Hemoglobin Concent 34.1 % Red Cell Distribution Width 13.8 % Platelet Count 403 TH/MM3 Mean Platelet Volume 7.7 FL Neutrophils (%) (Auto) 76.2 % Lymphocytes (%) (Auto) 16.5 % Monocytes (%) (Auto) 6.5 % Eosinophils (%) (Auto) 0.4 % Basophils (%) (Auto) 0.4 % Neutrophils # (Auto) 9.7 TH/MM3 Lymphocytes # (Auto) 2.1 TH/MM3 Monocytes # (Auto) 0.8 TH/MM3 Eosinophils # (Auto) 0.0 TH/MM3 Basophils # (Auto) 0.1 TH/MM3 CBC Comment DIFF FINAL Differential Comment Imaging Last 24 hours Impressions Hand X-Ray 09/20/17 0000 Signed Impressions: Service Date/Time: Wednesday, September 20, 2017 14:47 - CONCLUSION: Focal soft tissue prominence at the lateral aspect of the index finger adjacent to the middle phalanx. Orion Reid MD Assessment and Plan Problem List: (1) Sepsis ICD Codes: A41.9 - Sepsis, unspecified organism Status: Acute (2) Bacteremia ICD Codes: R78.81 - Bacteremia (3) UTI (urinary tract infection) ICD Codes: N39.0 - Urinary tract infection, site not specified (4) CVA (cerebral vascular accident) ICD Codes: I63.9 - Cerebral infarction, unspecified (5) Cocaine abuse ICD Codes: F14.10 - Cocaine abuse, uncomplicated Assessment and Plan No new cardiac issues. No angina or CHF. Continue abx for sepsis as per ID. Recent NOHELIA with no evidence of endocarditis. Counseled to stop smoking and using cocaine. Increase activity. Problem Qualifiers (1) Sepsis: Qualified Codes: A41.9 - Sepsis, unspecified organism Leslie Rg MD Sep 20, 2017 20:48
[2017-09-21] VITALS: BP 117/57; PULSE 87; RESP 22; TEMP 97.6; O2SAT 98
[2017-09-21] MEDS: CEFEPIME INJ 1,000 MG in SODIUM CHLORIDE 0.9% INJ 100 ML IV SCH ×2 (00:18→12:17)
[2017-09-21] MEDS: LEVOFLOXACIN 750 MG PREMIX INJ 150 ML IV SCH (01:52)
[2017-09-21] MEDS: SODIUM CHLOR 0.9% 1000 ML INJ 1,000 ML IV SCH (01:53)
[2017-09-21 04:00] VITALS: BP 113/60; PULSE 86; RESP 20; TEMP 98.1; O2SAT 98
[2017-09-21 05:40] LABS: AUTOMATED NEUTROPHIL # 11.4 TH/MM3 (1.8-7.7); BASOPHIL # 0.1 TH/MM3 (0-0.2); BASOPHIL % 0.9 % (0.0-2.0); EOSINOPHIL # 0.1 TH/MM3 (0-0.4); EOSINOPHIL % 0.5 % (0.0-4.0); HEMOGLOBIN 10.5 GM/DL (13.0-17.0); LYMPH % 17.8 % (9.0-44.0); LYMPHOCYTE # 2.7 TH/MM3 (1.0-4.8); MEAN CELL VOLUME 84.8 FL (80.0-100.0); MEAN CORPUSCULAR HEMOGLOBIN 28.9 PG (27.0-34.0); MEAN PLATELET VOLUME 7.4 FL (7.0-11.0); MONO % 5.3 % (0.0-8.0); MONOCYTE # 0.8 TH/MM3 (0-0.9); NEUT % 75.5 % (16.0-70.0); PLATELET COUNT 408 TH/MM3 (150-450); RED BLOOD COUNT 3.66 MIL/MM3 (4.50-5.90); RED CELL DISTRIBUTION WIDTH 13.9 % (11.6-17.2); WHITE BLOOD COUNT 15.1 TH/MM3 (4.0-11.0)
[2017-09-21 06:01] LABS: ALBUMIN 2.2 GM/DL (3.4-5.0); ALT (GPT) 236 U/L (12-78); AST (GOT) 141 U/L (15-37); BICARBONATE 24.4 MEQ/L (21.0-32.0); BLOOD UREA NITROGEN 13 MG/DL (7-18); CALCIUM 8.4 MG/DL (8.5-10.1); CHLORIDE 106 MEQ/L (98-107); CREATININE 0.71 MG/DL (0.60-1.30); GLOMERULAR FILTRATION RATE 117 ML/MIN (>89); GLUCOSE,RANDOM 104 MG/DL (74-106); SODIUM (NA) 138 MEQ/L (136-145)
[2017-09-21 06:03] LABS: ALKALINE PHOSPHATASE 97 U/L (45-117); TOTAL BILIRUBIN ADULT 0.2 MG/DL (0.2-1.0); TOTAL PROTEIN 6.6 GM/DL (6.4-8.2)
[2017-09-21] MEDS: ASPIRIN EC 81 MG TABEC PO SCH (07:38)
[2017-09-21] MEDS: DOCUSATE SODIUM 50 MG/SENNA 8.6 MG TAB PO SCH ×2 (07:38→21:00)
[2017-09-21] MEDS: SODIUM CHLORIDE 0.9% FLUSH 10 ML FLUSH IV FLUSH SCH ×2 (07:39→21:00)
[2017-09-21 07:43] VITALS: BP 115/57; PULSE 85; RESP 18; TEMP 97.9; O2SAT 99
[2017-09-21] MEDS ORDERED: DIATRIZOATE MEGLUM/DIATRIZOATE SOD 9 ML CUP PO ONE (10:30)
[2017-09-21 11:52] VITALS: BP 117/56; PULSE 88; RESP 18; TEMP 97.8; O2SAT 100
[2017-09-21] MEDS ORDERED: IOHEXOL 350 MG/ML 10 ML VIAL (for RAD DIAG) IVCONTRAST ONE (13:18)
--- NOTE | 2017-09-21 13:35 | RADRPT ---
EXAM DATE/TIME: 09/21/2017 13:10 [facility] COMPARISON: No previous studies available for comparison. INDICATIONS : Diffuse abdomen pain, abscess. IV CONTRAST: 75 cc Omnipaque 350 (iohexol) IV ORAL CONTRAST: Prescribed oral contrast ingested. RADIATION DOSE: 6.64 CTDIvol (mGy) MEDICAL HISTORY : Cardiovascular disease. SURGICAL HISTORY : None. ENCOUNTER: Initial ACUITY: 1 day PAIN SCALE: 1/10 LOCATION: Bilateral upper quadrant TECHNIQUE: Volumetric scanning of the abdomen and pelvis was performed. Using automated exposure control and ad justment of the mA and/or kV according to patient size, radiation dose was kept as low as reasonably achievable to obtain optimal diagnostic quality images. DICOM format image data is available electro nically for review and comparison. FINDINGS: Lung base is are clear. The liver, pancreas and adrenals unremarkable There are focal defects in the spleen that could be embolic. Similar focal defects are seen in the right kidney. Moderate vascular calcifications are noted. There is no ascites. There is no abscess. Moderate vascular calcifications are noted. CONCLUSION: 3 small focal defects in the spleen. Large defect in the right kidney with day smaller defect adjacent to the larger defect. This could b e embolic inflammatory changes. Correlation suggested. There is no abscess. Ramakrishna Cotter MD FACR on September 21, 2017 at 13:31 Board Certified Radiologist. This report was verified electronically.
--- NOTE | 2017-09-21 13:39 | HHI.PR ---
Subjective Remarks Follow-up bacteremia. Patient's main concern is shaking in his right arm as well as occasional difficulty finding words. Denies pain currently. Objective Vitals Vital Signs Date Time Temp Pulse Resp B/P (MAP) Pulse Ox O2 Delivery O2 Flow Rate FiO2 09/21/17 11:52 97.8 88 18 117/56 (76) 100 09/21/17 07:43 97.9 85 18 115/57 (76) 99 09/21/17 04:00 98.1 86 20 113/60 (77) 98 09/21/17 00:00 97.6 87 22 117/57 (77) 98 09/20/17 20:00 98.5 90 20 111/53 (72) 98 09/20/17 16:00 98.8 108 18 130/56 (80) 97 I/O 09/20/17 09/20/17 09/20/17 09/21/17 09/21/17 09/21/17 07:00 15:00 23:00 07:00 15:00 23:00 Intake Total 120 ml 760 ml 480 ml 240 ml Output Total 800 ml Balance 120 ml -40 ml 480 ml 240 ml Intake Oral 120 ml 760 ml 480 ml 240 ml Output Urine Total 800 ml # Voids 4 1 2 # Bowel Movements 1 0 0 Result Diagram: 09/21/17 0526 09/21/17 0526 Imaging Last Impressions Hand X-Ray 09/20/17 0000 Signed Impressions: Service Date/Time: Wednesday, September 20, 2017 14:47 - CONCLUSION: Focal soft tissue prominence at the lateral aspect of the index finger adjacent to the middle phalanx. Orion Reid MD Objective Remarks General: Disheveled male in no acute distress. Heart: Regular rate and rhythm. No murmur. Lungs: Clear to auscultation bilaterally. No wheezes, rales, or rhonchi. Breathing is nonlabored. Abdomen: Soft, nontender, nondistended. Extremities: No lower extremity edema. Psych: Alert and oriented. Procedures None Urinary Catheter: No Vascular Central Line Catheter: No A/P Problem List: (1) Sepsis ICD Code: A41.9 - Sepsis, unspecified organism Status: Acute (2) Bacteremia ICD Code: R78.81 - Bacteremia (3) UTI (urinary tract infection) ICD Code: N39.0 - Urinary tract infection, site not specified (4) CVA (cerebral vascular accident) ICD Code: I63.9 - Cerebral infarction, unspecified (5) Cocaine abuse ICD Code: F14.10 - Cocaine abuse, uncomplicated (6) Tobacco abuse ICD Code: Z72.0 - Tobacco use Assessment and Plan 1. Severe Sepsis: Patient presented with fever, tachycardia, leukocytosis. Serum lactic acid increased to 3.4, then trended down. Source UTI/bacteremia. Continue IV antibiotics. Appreciate infectious disease recommendations. Workup ongoing for source of bacteremia. 2. Bacteremia: Blood cultures growing Pseudomonas and enterococcus. Continue antibiotics. Patient had NOHELIA done by Dr. Rg on 09/15/17, but left AGAINST MEDICAL ADVICE following the procedure. No documentation is available from the procedure, however per Dr. Rg's consult, NOHELIA showed no evidence of vegetation. No source of bacteremia has been identified. MRIs ordered by infectious disease. Appreciate hand surgery recommendations. Not felt to have active infection in the hand. 3. UTI: Urinalysis improved. On antibiotics. 4. CVA: Patient had left-sided weakness on previous admission. He was evaluated by neurology at that time. MRI of the brain on 09/10/17 showed small scattered bilateral infarcts predominantly in the right MCA distribution. Continue aspirin. Avoid statin due to elevated LFTs. Monitor LFTs. 5. Cocaine abuse: Urine drug screen positive for cocaine on admission last week. Patient denies history of cocaine or IV drug use. 6. Tobacco abuse: Counseled to quit smoking. 7. DVT prophylaxis: SCDs, ELIEL guillen. Problem Qualifiers (1) Sepsis: Qualified Codes: A41.9 - Sepsis, unspecified organism Lev Uribe MD Sep 21, 2017 13:39
--- NOTE | 2017-09-21 16:44 | RADRPT ---
EXAM DATE/TIME: 09/21/2017 14:26 [facility] COMPARISON: No previous studies available for comparison. INDICATIONS : Abscess. CONTRAST: 16 cc Omniscan (gadodiamide) IV MEDICAL HISTORY : Cerebrovascular disease. SURGICAL HISTORY : Rt wrist and hand ENCOUNTER: Subsequent ACUITY: 4-6 days PAIN SCORE: 4/10 LOCATION: back TECHNIQUE: Multiplanar multisequence MRI of the lumbar spine was performed with and without contrast. FINDINGS: The most caudal appearing lumbar vertebra is numbered as L5. VERTEBRAE: Homogeneous signal. Normal alignment. CONUS: Normal level and configuration. POST CONTRAST: No abnormal areas of contrast enhancement are seen. No evidence of abscess is noted. T12-L1: The thecal sac has a normal diameter. No evidence of disc bulge or protrusion. The neural foramina are patent bilaterally. L1-L2: The thecal sac has a normal diameter. No evidence of disc bulge or protrusion. The neural foramina are patent bilaterally. L2-L3: The thecal sac has a normal diameter. No evidence of disc bulge or protrusion. The neural foramina are patent bilaterally. L3-L4: The thecal sac has a normal diameter. No evidence of disc bulge or protrusion. The neural foramina are patent bilaterally. L4-L5: The thecal sac has a normal diameter. No evidence of disc bulge or protrusion. The neural foramina are patent bilaterally. L5-S1: Mild broad-based annular bulge with annular fissuring is noted. There is no significant mass effect. CONCLUSION: 1. No evidence of acute inflammatory disease or abscess. 2. Mild annular bulging with posterior annular fissure at L5-S1. 3. No other significant abnormality. Roshan Quispe MD on September 21, 2017 at 16:40 Board Certified Radiologist. This report was verified electronically.
[2017-09-21] MEDS ORDERED: GADODIAMIDE PF 287 MG/ML 20 ML VIAL (for RAD MRI) IVCONTRAST ONE (16:46)
--- NOTE | 2017-09-21 16:49 | RADRPT ---
EXAM DATE/TIME: 09/21/2017 14:26 [facility] COMPARISON: No previous studies available for comparison. INDICATIONS : Abscess. CONTRAST: 16 cc Omniscan (gadodiamide) IV MEDICAL HISTORY : Cerebrovascular disease. SURGICAL HISTORY : Rt hand and wrist ENCOUNTER: Subsequent ACUITY: 4-6 days PAIN SCORE: 4/10 LOCATION: back TECHNIQUE: Multiplanar multisequence MRI of the thoracic spine was performed. FINDINGS: Alignment: Intact without evidence of listhesis. Osseous structures and facet joints: Loss of height is identified in the T6, T7, T8 and T9 vertebral bodies. There is no associated bone m arrow edema. Signal intensity throughout the vertebral bodies is otherwise unremarkable. Posterior el ements are unremarkable. There are no acute inflammatory changes or abnormal enhancement. Intervertebral disc spaces: Mild degenerative disease with minimal posterior disc osteophyte complex at T6-7 and T7-8. No evidenc e of disc herniation. Neurologic structures: Spinal cord is normal in caliber and signal intensity. There are no epidural, intradural or intramedu llary lesions. There is dose of abnormal enhancement. CONCLUSION: 1. No evidence of acute inflammatory disease or abscess. 2. Mild degenerative disc disease at T6-7 and T7-8 3. Mild loss of vertebral body height as described without evidence of acute compression fracture. 4. No evidence of disc herniation. Roshan Quispe MD on September 21, 2017 at 16:43 Board Certified Radiologist. This report was verified electronically.
--- NOTE | 2017-09-21 19:48 | PD.CARD.PN ---
Subjective Subjective Remarks No CP or SOB, feels fine Objective Medications Current Medications Medications (Trade) Dose Ordered Sig/Vikas Route Start Time Stop Time Status Last Admin Cefepime HCl 1000 mg/Sodium Chloride 100 ml @ 200 mls/hr Q12H IV 09/18/17 01:00 09/21/17 12:17 Levofloxacin/ Dextrose 150 ml @ 100 mls/hr Q24H IV 09/18/17 02:00 09/21/17 01:52 Sodium Chloride 1,000 ml @ 100 mls/hr Q10H IV 09/17/17 23:44 09/21/17 01:53 (NS Flush) 2 ml UNSCH PRN IV FLUSH 09/17/17 23:45 (NS Flush) 2 ml BID IV FLUSH 09/18/17 09:00 09/20/17 09:00 (Zofran Inj) 4 mg Q6H PRN IVP 09/17/17 23:45 (Tylenol) 650 mg Q6H PRN PO 09/17/17 23:45 09/19/17 09:04 (Roxicodone) 10 mg Q4H PRN PO 09/17/17 23:45 (Roxicodone) 5 mg Q4H PRN PO 09/17/17 23:45 (Arabella-Colace) 1 tab BID PO 09/18/17 09:00 09/18/17 20:29 (Milk Of Magnesia Liq) 30 ml Q12H PRN PO 09/17/17 23:45 (Senokot) 17.2 mg Q12H PRN PO 09/17/17 23:45 (Dulcolax Supp) 10 mg DAILY PRN RECTAL 09/17/17 23:45 (Lactulose Liq) 30 ml DAILY PRN PO 09/17/17 23:45 (Ecotrin Ec) 162 mg DAILY PO 09/19/17 13:15 09/21/17 07:38 Vital Signs / I&O Vital Signs Date Time Temp Pulse Resp B/P (MAP) Pulse Ox O2 Delivery O2 Flow Rate FiO2 09/21/17 11:52 97.8 88 18 117/56 (76) 100 09/21/17 07:43 97.9 85 18 115/57 (76) 99 09/21/17 04:00 98.1 86 20 113/60 (77) 98 09/21/17 00:00 97.6 87 22 117/57 (77) 98 09/20/17 20:00 98.5 90 20 111/53 (72) 98 I/O 09/20/17 09/20/17 09/20/17 09/21/17 09/21/17 09/21/17 06:59 14:59 22:59 06:59 14:59 22:59 Intake Total 120 ml 760 ml 480 ml 240 ml Output Total 800 ml Balance 120 ml -40 ml 480 ml 240 ml Intake Oral 120 ml 760 ml 480 ml 240 ml Output Urine Total 800 ml # Voids 4 1 2 # Bowel Movements 1 0 0 Physical Exam GENERAL: In NAD SKIN: Warm and dry. HEAD: Normocephalic. EYES: No scleral icterus. No injection or drainage. NECK: Supple, trachea midline. No JVD or lymphadenopathy. CARDIOVASCULAR: Regular rate and rhythm without murmurs, gallops, or rubs. RESPIRATORY: Breath sounds equal bilaterally. No accessory muscle use. GASTROINTESTINAL: Abdomen soft, non-tender, nondistended. MUSCULOSKELETAL: No cyanosis, or edema. Laboratory Laboratory Tests Test 09/21/17 05:26 White Blood Count 15.1 TH/MM3 Red Blood Count 3.66 MIL/MM3 Hemoglobin 10.5 GM/DL Hematocrit 31.0 % Mean Corpuscular Volume 84.8 FL Mean Corpuscular Hemoglobin 28.9 PG Mean Corpuscular Hemoglobin Concent 34.0 % Red Cell Distribution Width 13.9 % Platelet Count 408 TH/MM3 Mean Platelet Volume 7.4 FL Neutrophils (%) (Auto) 75.5 % Lymphocytes (%) (Auto) 17.8 % Monocytes (%) (Auto) 5.3 % Eosinophils (%) (Auto) 0.5 % Basophils (%) (Auto) 0.9 % Neutrophils # (Auto) 11.4 TH/MM3 Lymphocytes # (Auto) 2.7 TH/MM3 Monocytes # (Auto) 0.8 TH/MM3 Eosinophils # (Auto) 0.1 TH/MM3 Basophils # (Auto) 0.1 TH/MM3 CBC Comment DIFF FINAL Differential Comment Blood Urea Nitrogen 13 MG/DL Creatinine 0.71 MG/DL Random Glucose 104 MG/DL Total Protein 6.6 GM/DL Albumin 2.2 GM/DL Calcium Level 8.4 MG/DL Alkaline Phosphatase 97 U/L Aspartate Amino Transf (AST/SGOT) 141 U/L Alanine Aminotransferase (ALT/SGPT) 236 U/L Total Bilirubin 0.2 MG/DL Sodium Level 138 MEQ/L Potassium Level 3.9 MEQ/L Chloride Level 106 MEQ/L Carbon Dioxide Level 24.4 MEQ/L Anion Gap 8 MEQ/L Estimat Glomerular Filtration Rate 117 ML/MIN Imaging Last 24 hours Impressions Thoracic Spine MRI 09/21/17 0000 Signed Impressions: Service Date/Time: Thursday, September 21, 2017 14:26 - CONCLUSION: 1. No evidence of acute inflammatory disease or abscess. 2. Mild degenerative disc disease at T6-7 and T7-8 3. Mild loss of vertebral body height as described without evidence of acute compression fracture. 4. No evidence of disc herniation. Roshan Quispe MD Lumbar Spine MRI 09/21/17 0000 Signed Impressions: Service Date/Time: Thursday, September 21, 2017 14:26 - CONCLUSION: 1. No evidence of acute inflammatory disease or abscess. 2. Mild annular bulging with posterior annular fissure at L5-S1. 3. No other significant abnormality. Roshan Quispe MD Abdomen/Pelvis CT 09/21/17 0000 Signed Impressions: Service Date/Time: Thursday, September 21, 2017 13:10 - CONCLUSION: 3 small focal defects in the spleen. Large defect in the right kidney with day smaller defect adjacent to the larger defect. This could be embolic inflammatory changes. Correlation suggested. There is no abscess. Ramakrishna Cotter MD FACR Assessment and Plan Problem List: (1) Sepsis ICD Codes: A41.9 - Sepsis, unspecified organism Status: Acute (2) Bacteremia ICD Codes: R78.81 - Bacteremia (3) UTI (urinary tract infection) ICD Codes: N39.0 - Urinary tract infection, site not specified (4) CVA (cerebral vascular accident) ICD Codes: I63.9 - Cerebral infarction, unspecified (5) Cocaine abuse ICD Codes: F14.10 - Cocaine abuse, uncomplicated Assessment and Plan Remains stable from cardiac standpoint. No angina or CHF. Continue abx for sepsis as per ID. Recent NOHELIA with no evidence of endocarditis. Counseled again to stop smoking and using cocaine. Increase activity. Problem Qualifiers (1) Sepsis: Qualified Codes: A41.9 - Sepsis, unspecified organism Leslie Rg MD Sep 21, 2017 19:48
[2017-09-21 20:00] VITALS: BP 116/54; PULSE 88; RESP 20; TEMP 98; O2SAT 99
[2017-09-22] VITALS: BP 118/59; PULSE 86; RESP 20; TEMP 98.5; O2SAT 99
[2017-09-22] MEDS: CEFEPIME INJ 1,000 MG in SODIUM CHLORIDE 0.9% INJ 100 ML IV SCH ×2 (00:27→13:51)
[2017-09-22] MEDS: SODIUM CHLOR 0.9% 1000 ML INJ 1,000 ML IV SCH ×3 (00:29→13:50)
[2017-09-22] MEDS: LEVOFLOXACIN 750 MG PREMIX INJ 150 ML IV SCH (02:32)
[2017-09-22 04:00] VITALS: BP 113/56; PULSE 81; RESP 20; TEMP 97.2; O2SAT 100
[2017-09-22 08:00] VITALS: BP 135/64; PULSE 89; RESP 16; TEMP 97.5; O2SAT 93
[2017-09-22] MEDS: ASPIRIN EC 81 MG TABEC PO SCH (09:37)
[2017-09-22] MEDS: SODIUM CHLORIDE 0.9% FLUSH 10 ML FLUSH IV FLUSH SCH ×2 (09:39→21:00)
[2017-09-22] MEDS: DOCUSATE SODIUM 50 MG/SENNA 8.6 MG TAB PO SCH ×2 (09:40→22:34)
[2017-09-22 10:08] LABS: AUTOMATED NEUTROPHIL # 9.6 TH/MM3 (1.8-7.7); BASOPHIL # 0.1 TH/MM3 (0-0.2); EOSINOPHIL # 0.1 TH/MM3 (0-0.4); EOSINOPHIL % 0.9 % (0.0-4.0); HEMATOCRIT 33.1 % (39.0-51.0); HEMOGLOBIN 10.9 GM/DL (13.0-17.0); LYMPHOCYTE # 2.1 TH/MM3 (1.0-4.8); MEAN CELL VOLUME 84.3 FL (80.0-100.0); MEAN CORPUSCULAR HEMOGLOBIN 27.7 PG (27.0-34.0); MEAN CORPUSCULAR HGB CONC 32.9 % (32.0-36.0); MEAN PLATELET VOLUME 7.4 FL (7.0-11.0); MONO % 5.1 % (0.0-8.0); MONOCYTE # 0.6 TH/MM3 (0-0.9); PLATELET COUNT 425 TH/MM3 (150-450); RED BLOOD COUNT 3.93 MIL/MM3 (4.50-5.90); WHITE BLOOD COUNT 12.6 TH/MM3 (4.0-11.0)
[2017-09-22 10:34] LABS: ALBUMIN 2.2 GM/DL (3.4-5.0); ALT (GPT) 191 U/L (12-78); BICARBONATE 30.9 MEQ/L (21.0-32.0); BLOOD UREA NITROGEN 10 MG/DL (7-18); CALCIUM 8.6 MG/DL (8.5-10.1); CHLORIDE 104 MEQ/L (98-107); CREATININE 0.73 MG/DL (0.60-1.30); GLOMERULAR FILTRATION RATE 114 ML/MIN (>89); GLUCOSE,RANDOM 89 MG/DL (74-106); SODIUM (NA) 139 MEQ/L (136-145)
[2017-09-22 10:37] LABS: ALKALINE PHOSPHATASE 92 U/L (45-117); AST (GOT) 64 U/L (15-37); TOTAL BILIRUBIN ADULT 0.2 MG/DL (0.2-1.0); TOTAL PROTEIN 6.8 GM/DL (6.4-8.2)
[2017-09-22 12:00] VITALS: BP 116/57; PULSE 82; RESP 16; TEMP 98; O2SAT 100
--- NOTE | 2017-09-22 14:41 | PD.CARD.PN ---
Subjective Subjective Remarks No CP or SOB, no c/o, asking when he can leave Objective Medications Current Medications Medications (Trade) Dose Ordered Sig/Vikas Route Start Time Stop Time Status Last Admin Cefepime HCl 1000 mg/Sodium Chloride 100 ml @ 200 mls/hr Q12H IV 09/18/17 01:00 09/22/17 13:51 Levofloxacin/ Dextrose 150 ml @ 100 mls/hr Q24H IV 09/18/17 02:00 09/22/17 02:32 Sodium Chloride 1,000 ml @ 100 mls/hr Q10H IV 09/17/17 23:44 09/22/17 13:50 (NS Flush) 2 ml UNSCH PRN IV FLUSH 09/17/17 23:45 (NS Flush) 2 ml BID IV FLUSH 09/18/17 09:00 09/20/17 09:00 (Zofran Inj) 4 mg Q6H PRN IVP 09/17/17 23:45 (Tylenol) 650 mg Q6H PRN PO 09/17/17 23:45 09/19/17 09:04 (Roxicodone) 10 mg Q4H PRN PO 09/17/17 23:45 (Roxicodone) 5 mg Q4H PRN PO 09/17/17 23:45 (Arabella-Colace) 1 tab BID PO 09/18/17 09:00 09/18/17 20:29 (Milk Of Magnesia Liq) 30 ml Q12H PRN PO 09/17/17 23:45 (Senokot) 17.2 mg Q12H PRN PO 09/17/17 23:45 (Dulcolax Supp) 10 mg DAILY PRN RECTAL 09/17/17 23:45 (Lactulose Liq) 30 ml DAILY PRN PO 09/17/17 23:45 (Ecotrin Ec) 162 mg DAILY PO 09/19/17 13:15 09/22/17 09:37 Vital Signs / I&O Vital Signs Date Time Temp Pulse Resp B/P (MAP) Pulse Ox O2 Delivery O2 Flow Rate FiO2 09/22/17 04:00 97.2 81 20 113/56 (75) 100 09/22/17 00:00 98.5 86 20 118/59 (78) 99 09/21/17 20:00 98.0 88 20 116/54 (74) 99 I/O 09/21/17 09/21/17 09/21/17 09/22/17 09/22/17 09/22/17 07:00 15:00 23:00 07:00 15:00 23:00 Intake Total 240 ml 100 ml Output Total 100 ml Balance 240 ml -100 ml 100 ml Intake Oral 240 ml IV Total 100 ml Output Urine Total 100 ml # Voids 2 2 # Bowel Movements 0 0 0 Physical Exam GENERAL: In NAD SKIN: Warm and dry. HEAD: Normocephalic. EYES: No scleral icterus. No injection or drainage. NECK: Supple, trachea midline. No JVD or lymphadenopathy. CARDIOVASCULAR: Regular rate and rhythm without murmurs, gallops, or rubs. RESPIRATORY: Breath sounds equal bilaterally. No accessory muscle use. GASTROINTESTINAL: Abdomen soft, non-tender, nondistended. MUSCULOSKELETAL: No cyanosis, or edema. Laboratory Laboratory Tests Test 09/22/17 09:45 White Blood Count 12.6 TH/MM3 Red Blood Count 3.93 MIL/MM3 Hemoglobin 10.9 GM/DL Hematocrit 33.1 % Mean Corpuscular Volume 84.3 FL Mean Corpuscular Hemoglobin 27.7 PG Mean Corpuscular Hemoglobin Concent 32.9 % Red Cell Distribution Width 14.0 % Platelet Count 425 TH/MM3 Mean Platelet Volume 7.4 FL Neutrophils (%) (Auto) 76.0 % Lymphocytes (%) (Auto) 17.0 % Monocytes (%) (Auto) 5.1 % Eosinophils (%) (Auto) 0.9 % Basophils (%) (Auto) 1.0 % Neutrophils # (Auto) 9.6 TH/MM3 Lymphocytes # (Auto) 2.1 TH/MM3 Monocytes # (Auto) 0.6 TH/MM3 Eosinophils # (Auto) 0.1 TH/MM3 Basophils # (Auto) 0.1 TH/MM3 CBC Comment DIFF FINAL Differential Comment Blood Urea Nitrogen 10 MG/DL Creatinine 0.73 MG/DL Random Glucose 89 MG/DL Total Protein 6.8 GM/DL Albumin 2.2 GM/DL Calcium Level 8.6 MG/DL Alkaline Phosphatase 92 U/L Aspartate Amino Transf (AST/SGOT) 64 U/L Alanine Aminotransferase (ALT/SGPT) 191 U/L Total Bilirubin 0.2 MG/DL Sodium Level 139 MEQ/L Potassium Level 4.0 MEQ/L Chloride Level 104 MEQ/L Carbon Dioxide Level 30.9 MEQ/L Anion Gap 4 MEQ/L Estimat Glomerular Filtration Rate 114 ML/MIN Assessment and Plan Problem List: (1) Sepsis ICD Codes: A41.9 - Sepsis, unspecified organism Status: Acute (2) Bacteremia ICD Codes: R78.81 - Bacteremia (3) UTI (urinary tract infection) ICD Codes: N39.0 - Urinary tract infection, site not specified (4) CVA (cerebral vascular accident) ICD Codes: I63.9 - Cerebral infarction, unspecified (5) Cocaine abuse ICD Codes: F14.10 - Cocaine abuse, uncomplicated Assessment and Plan No new cardiac issues. No angina or CHF. Continue IV antibiotics for sepsis/ bacteremia as per ID. Recent NOHELIA with no evidence of endocarditis. Counseled again to stop smoking and using cocaine. Increase activity. Problem Qualifiers (1) Sepsis: Qualified Codes: A41.9 - Sepsis, unspecified organism Leslie Rg MD Sep 22, 2017 14:41
--- NOTE | 2017-09-22 14:44 | HHI.PR ---
Subjective Remarks Follow up bacteremia. Patient has no complaints at this time. No chest pain, dyspnea, nausea, vomiting. Objective Vitals Vital Signs Date Time Temp Pulse Resp B/P (MAP) Pulse Ox O2 Delivery O2 Flow Rate FiO2 09/22/17 04:00 97.2 81 20 113/56 (75) 100 09/22/17 00:00 98.5 86 20 118/59 (78) 99 09/21/17 20:00 98.0 88 20 116/54 (74) 99 I/O 09/21/17 09/21/17 09/21/17 09/22/17 09/22/17 09/22/17 07:00 15:00 23:00 07:00 15:00 23:00 Intake Total 240 ml 100 ml Output Total 100 ml Balance 240 ml -100 ml 100 ml Intake Oral 240 ml IV Total 100 ml Output Urine Total 100 ml # Voids 2 2 # Bowel Movements 0 0 0 Result Diagram: 09/22/17 0945 09/22/17 0945 Imaging Last Impressions Thoracic Spine MRI 09/21/17 0000 Signed Impressions: Service Date/Time: Thursday, September 21, 2017 14:26 - CONCLUSION: 1. No evidence of acute inflammatory disease or abscess. 2. Mild degenerative disc disease at T6-7 and T7-8 3. Mild loss of vertebral body height as described without evidence of acute compression fracture. 4. No evidence of disc herniation. Roshan Quispe MD Lumbar Spine MRI 09/21/17 0000 Signed Impressions: Service Date/Time: Thursday, September 21, 2017 14:26 - CONCLUSION: 1. No evidence of acute inflammatory disease or abscess. 2. Mild annular bulging with posterior annular fissure at L5-S1. 3. No other significant abnormality. Roshan Quispe MD Abdomen/Pelvis CT 09/21/17 0000 Signed Impressions: Service Date/Time: Thursday, September 21, 2017 13:10 - CONCLUSION: 3 small focal defects in the spleen. Large defect in the right kidney with day smaller defect adjacent to the larger defect. This could be embolic inflammatory changes. Correlation suggested. There is no abscess. Ramakrishna Cotter MD FACR Hand X-Ray 09/20/17 0000 Signed Impressions: Service Date/Time: Wednesday, September 20, 2017 14:47 - CONCLUSION: Focal soft tissue prominence at the lateral aspect of the index finger adjacent to the middle phalanx. Orion Reid MD Objective Remarks General: Well-developed, well-nourished male in no acute distress. Heart: Regular rate and rhythm. No murmur. Lungs: Clear to auscultation bilaterally. No wheezes, rales, or rhonchi. Breathing is nonlabored. Abdomen: Soft, nontender, nondistended. Extremities: No lower extremity edema. Psych: Alert and oriented. Procedures None Urinary Catheter: No Vascular Central Line Catheter: No A/P Problem List: (1) Sepsis ICD Code: A41.9 - Sepsis, unspecified organism Status: Acute (2) Bacteremia ICD Code: R78.81 - Bacteremia (3) UTI (urinary tract infection) ICD Code: N39.0 - Urinary tract infection, site not specified (4) CVA (cerebral vascular accident) ICD Code: I63.9 - Cerebral infarction, unspecified (5) Cocaine abuse ICD Code: F14.10 - Cocaine abuse, uncomplicated (6) Tobacco abuse ICD Code: Z72.0 - Tobacco use Assessment and Plan 1. Severe Sepsis: Patient presented with fever, tachycardia, leukocytosis. Serum lactic acid increased to 3.4, then trended down. Source bacteremia. Continue IV antibiotics. Appreciate infectious disease recommendations. Urine culture from 09/10/17 also growing Pseudomonas. 2. Bacteremia: Blood cultures growing Pseudomonas and enterococcus. Urine culture from 09/10/17 growing Pseudomonas. Continue antibiotics. Patient had NOHELIA done by Dr. Rg on 09/15/17, but left AGAINST MEDICAL ADVICE following the procedure. No documentation is available from the procedure, however per Dr. Rg's consult, NOHELIA showed no evidence of vegetation. No source of bacteremia has been identified. MRI/CT show no other source of infection. Appreciate hand surgery recommendations. Not felt to have active infection in the hand. 3. UTI: Urinalysis improved. On antibiotics. 4. CVA: Patient had left-sided weakness on previous admission. He was evaluated by neurology at that time. MRI of the brain on 09/10/17 showed small scattered bilateral infarcts predominantly in the right MCA distribution. Continue aspirin. Avoid statin due to elevated LFTs. Monitor LFTs. 5. Cocaine abuse: Urine drug screen positive for cocaine on admission last week. Patient denies history of cocaine or IV drug use. 6. Tobacco abuse: Counseled to quit smoking. 7. DVT prophylaxis: ELIEL Aguilar. Discussed with Dr. Roberson. Problem Qualifiers (1) Sepsis: Qualified Codes: A41.9 - Sepsis, unspecified organism Lev Uribe MD Sep 22, 2017 14:44
--- NOTE | 2017-09-22 15:31 | HHI.IDPN ---
Note Infectious Disease Note Patient is very sleepy. No complaints. Says he has not been getting much sleep. Afebrile. No distress. Studies noted. MRI without evidence of abscess. CT of ab[place]en show lesions in spleen and kidney. 52-year-old white male who was recently treated in the hospital for Pseudomonas sepsis. The patient was admitted on September 10, and was treated for Pseudomonas bacteremia and Pseudomonas urinary tract infection. The patient underwent NOHELIA to evaluate for endocarditis on 09/15 and he left the hospital soon after the procedure against medical advice. NOHELIA which was done showed no vegetation of the valve of the heart. He did not take any antibiotics after he left the hospital. He came back to the hospital with fever on 09/15/2017. He had temperature up to 101.9 degrees. His blood cultures are positive for Pseudomonas again on 09/17 and . He reports that he also was not taking medications for the stroke after he left the hospital. PAST MEDICAL HISTORY CVA. ALLERGIES NO KNOWN DRUG ALLERGIES. ANTIBIOTICS: 1. Cefepime 2. Levaquin OBJ: Vital Signs Date Time Temp Pulse Resp B/P (MAP) Pulse Ox O2 Delivery O2 Flow Rate FiO2 09/22/17 12:00 98.0 82 16 116/57 (76) 100 09/22/17 08:00 97.5 89 16 135/64 (87) 93 09/22/17 04:00 97.2 81 20 113/56 (75) 100 09/22/17 00:00 98.5 86 20 118/59 (78) 99 09/21/17 20:00 98.0 88 20 116/54 (74) 99 Laboratory Tests Test 09/21/17 05:26 09/22/17 09:45 White Blood Count 15.1 TH/MM3 12.6 TH/MM3 Red Blood Count 3.66 MIL/MM3 3.93 MIL/MM3 Hemoglobin 10.5 GM/DL 10.9 GM/DL Hematocrit 31.0 % 33.1 % Mean Corpuscular Volume 84.8 FL 84.3 FL Mean Corpuscular Hemoglobin 28.9 PG 27.7 PG Mean Corpuscular Hemoglobin Concent 34.0 % 32.9 % Red Cell Distribution Width 13.9 % 14.0 % Platelet Count 408 TH/MM3 425 TH/MM3 Mean Platelet Volume 7.4 FL 7.4 FL Neutrophils (%) (Auto) 75.5 % 76.0 % Lymphocytes (%) (Auto) 17.8 % 17.0 % Monocytes (%) (Auto) 5.3 % 5.1 % Eosinophils (%) (Auto) 0.5 % 0.9 % Basophils (%) (Auto) 0.9 % 1.0 % Neutrophils # (Auto) 11.4 TH/MM3 9.6 TH/MM3 Lymphocytes # (Auto) 2.7 TH/MM3 2.1 TH/MM3 Monocytes # (Auto) 0.8 TH/MM3 0.6 TH/MM3 Eosinophils # (Auto) 0.1 TH/MM3 0.1 TH/MM3 Basophils # (Auto) 0.1 TH/MM3 0.1 TH/MM3 CBC Comment DIFF FINAL DIFF FINAL Differential Comment Laboratory Tests Test 09/21/17 05:26 09/22/17 09:45 Blood Urea Nitrogen 13 MG/DL 10 MG/DL Creatinine 0.71 MG/DL 0.73 MG/DL Random Glucose 104 MG/DL 89 MG/DL Total Protein 6.6 GM/DL 6.8 GM/DL Albumin 2.2 GM/DL 2.2 GM/DL Calcium Level 8.4 MG/DL 8.6 MG/DL Alkaline Phosphatase 97 U/L 92 U/L Aspartate Amino Transf (AST/SGOT) 141 U/L 64 U/L Alanine Aminotransferase (ALT/SGPT) 236 U/L 191 U/L Total Bilirubin 0.2 MG/DL 0.2 MG/DL Sodium Level 138 MEQ/L 139 MEQ/L Potassium Level 3.9 MEQ/L 4.0 MEQ/L Chloride Level 106 MEQ/L 104 MEQ/L Carbon Dioxide Level 24.4 MEQ/L 30.9 MEQ/L Anion Gap 8 MEQ/L 4 MEQ/L Estimat Glomerular Filtration Rate 117 ML/MIN 114 ML/MIN Microbiology Date/Time Source Procedure Growth Status 09/20/17 10:35 Blood Peripheral Aerobic Blood Culture - Preliminary NO GROWTH IN 2 DAYS Resulted 09/20/17 10:35 Blood Peripheral Anaerobic Blood Culture - Preliminary NO GROWTH IN 2 DAYS Resulted 09/20/17 10:30 Blood Peripheral Aerobic Blood Culture - Preliminary NO GROWTH IN 2 DAYS Resulted 09/20/17 10:30 Blood Peripheral Anaerobic Blood Culture - Preliminary NO GROWTH IN 2 DAYS Resulted PHYSICAL EXAMINATION GENERAL: No acute distress. He is awake and alert and oriented. HEENT: Head is atraumatic. Extraocular movements grossly intact, pupils reactive to light. No icterus. No conjunctival erythema. Oropharynx: moist mucosa. No lesions. Neck: Supple without adenopathy. Lungs: Decreased breath sounds. Heart: Regular S1-S2 without audible murmurs, rubs or gallops. Abdomen: Bowel sounds present, soft, nontender, flat. Extremities: No clubbing, cyanosis or edema. The right index finger has an area of swelling at the distal interphalangeal joint at the palmar aspect which is very firm and hard but no opening of the wound or drainage. This appears to be nodular and firm. Neuro: Nonfocal except for some weakness of his right side. Psych: Calm and cooperative. IMPRESSION 1. Persistent bacteremia in a patient with fever and elevated white blood cell count 2. No clear source of infection except for the prior urine positive culture during last hospitalization. However, the urine on this hospitalization was unremarkable but the blood culture has still remained positive. He probably has some foci of infection hidden that we have not yet unmasked. The culture from 09/17 also had Enterococcus faecalis along with the Pseudomonas but the subsequent blood culture has only Pseudomonas. Prior NOHELIA reportedly did not reveal any evidence of endocarditis. RECOMMENDATIONS 1. Continue cefepime. 2. Continue Levaquin. 3. Follow the repeat blood culture. If the repeat blood culture is negative at 5 days, continue the IV cefepime along with Levaquin until 09/27/17 and then discharge on PO levaquin x 4 weeks. W e have to treat patient as having an endovascular infection due to the CVA and lesions in the kidney and spleen along with the positive blood culture. If the blood culture is still positive, would do a white blood cell scan as further work up. Jared Roberson MD Sep 22, 2017 15:31
[2017-09-22 16:00] VITALS: BP 111/57; PULSE 83; RESP 16; TEMP 97.7; O2SAT 99
[2017-09-22 20:00] VITALS: BP 119/59; PULSE 88; RESP 20; TEMP 97.7; O2SAT 99
[2017-09-23] VITALS: BP 109/57; PULSE 81; RESP 17; TEMP 98.6; O2SAT 99
[2017-09-23] MEDS: CEFEPIME INJ 1,000 MG in SODIUM CHLORIDE 0.9% INJ 100 ML IV SCH ×2 (00:41→13:10)
[2017-09-23] MEDS: SODIUM CHLOR 0.9% 1000 ML INJ 1,000 ML IV SCH ×3 (01:54→19:44)
[2017-09-23] MEDS: LEVOFLOXACIN 750 MG PREMIX INJ 150 ML IV SCH (01:54)
[2017-09-23 04:00] VITALS: BP 110/55; PULSE 82; RESP 20; TEMP 97.7; O2SAT 99
[2017-09-23 08:00] VITALS: BP 107/52; PULSE 79; RESP 18; TEMP 97.9; O2SAT 99
[2017-09-23] MEDS: ASPIRIN EC 81 MG TABEC PO SCH (09:42)
[2017-09-23] MEDS: DOCUSATE SODIUM 50 MG/SENNA 8.6 MG TAB PO SCH ×2 (09:43→21:30)
[2017-09-23] MEDS: SODIUM CHLORIDE 0.9% FLUSH 10 ML FLUSH IV FLUSH SCH ×2 (09:43→21:00)
--- NOTE | 2017-09-23 11:46 | HHI.PR ---
Subjective Remarks follow-up bacteremia. The patient states that he feels good today. Right arm tremor is slightly better. No other complaints at this time. Objective Vitals Vital Signs Date Time Temp Pulse Resp B/P (MAP) Pulse Ox O2 Delivery O2 Flow Rate FiO2 09/23/17 08:00 97.9 79 18 107/52 (70) 99 09/23/17 04:00 97.7 82 20 110/55 (73) 99 09/23/17 00:00 98.6 81 17 109/57 (74) 99 09/22/17 20:00 97.7 88 20 119/59 (79) 99 09/22/17 16:00 97.7 83 16 111/57 (75) 99 09/22/17 12:00 98.0 82 16 116/57 (76) 100 I/O 09/22/17 09/22/17 09/22/17 09/23/17 09/23/17 09/23/17 06:59 14:59 22:59 06:59 14:59 22:59 Intake Total 100 ml 1150 ml 100 ml 100 ml Balance 100 ml 1150 ml 100 ml 100 ml IV Total 100 ml 1150 ml 100 ml 100 ml # Voids 2 2 2 # Bowel Movements 0 0 0 1 Result Diagram: 09/22/17 0945 09/22/17 0945 Imaging Last Impressions Thoracic Spine MRI 09/21/17 0000 Signed Impressions: Service Date/Time: Thursday, September 21, 2017 14:26 - CONCLUSION: 1. No evidence of acute inflammatory disease or abscess. 2. Mild degenerative disc disease at T6-7 and T7-8 3. Mild loss of vertebral body height as described without evidence of acute compression fracture. 4. No evidence of disc herniation. Roshan Quispe MD Lumbar Spine MRI 09/21/17 0000 Signed Impressions: Service Date/Time: Thursday, September 21, 2017 14:26 - CONCLUSION: 1. No evidence of acute inflammatory disease or abscess. 2. Mild annular bulging with posterior annular fissure at L5-S1. 3. No other significant abnormality. Roshan Quispe MD Abdomen/Pelvis CT 09/21/17 0000 Signed Impressions: Service Date/Time: Thursday, September 21, 2017 13:10 - CONCLUSION: 3 small focal defects in the spleen. Large defect in the right kidney with day smaller defect adjacent to the larger defect. This could be embolic inflammatory changes. Correlation suggested. There is no abscess. Ramakrishna Cotter MD FACR Hand X-Ray 09/20/17 0000 Signed Impressions: Service Date/Time: Wednesday, September 20, 2017 14:47 - CONCLUSION: Focal soft tissue prominence at the lateral aspect of the index finger adjacent to the middle phalanx. Orion Reid MD Objective Remarks General: Disheveled male in no acute distress. Smells strongly of cigarette smoke. Heart: Regular rate and rhythm. No murmur. Lungs: Clear to auscultation bilaterally. No wheezes, rales, or rhonchi. Breathing is nonlabored. Abdomen: Soft, nontender, nondistended. Extremities: No lower extremity edema. Psych: Alert and oriented. Procedures None Urinary Catheter: No Vascular Central Line Catheter: No A/P Problem List: (1) Sepsis ICD Code: A41.9 - Sepsis, unspecified organism Status: Acute (2) Bacteremia ICD Code: R78.81 - Bacteremia (3) UTI (urinary tract infection) ICD Code: N39.0 - Urinary tract infection, site not specified (4) CVA (cerebral vascular accident) ICD Code: I63.9 - Cerebral infarction, unspecified (5) Cocaine abuse ICD Code: F14.10 - Cocaine abuse, uncomplicated (6) Tobacco abuse ICD Code: Z72.0 - Tobacco use Assessment and Plan 1. Severe Sepsis: Patient presented with fever, tachycardia, leukocytosis. Serum lactic acid increased to 3.4, then trended down. Source bacteremia. Continue IV antibiotics. Appreciate infectious disease recommendations. Urine culture from 09/10/17 also growing Pseudomonas. 2. Bacteremia: Blood cultures growing Pseudomonas and enterococcus. Urine culture from 09/10/17 growing Pseudomonas. Continue antibiotics. Patient had NOHELIA done by Dr. Rg on 09/15/17, but left AGAINST MEDICAL ADVICE following the procedure. No documentation is available from the procedure, however per Dr. Rg's consult, NOHELIA showed no evidence of vegetation. No source of bacteremia has been identified. MRI/CT show no other source of infection. Appreciate hand surgery recommendations. Not felt to have active infection in the hand. 3. UTI: Urinalysis improved. On antibiotics. 4. CVA: Patient had left-sided weakness on previous admission. He was evaluated by neurology at that time. MRI of the brain on 09/10/17 showed small scattered bilateral infarcts predominantly in the right MCA distribution. Continue aspirin. Avoid statin due to elevated LFTs. Monitor LFTs. 5. Cocaine abuse: Urine drug screen positive for cocaine on admission last week. Patient denies history of cocaine or IV drug use. 6. Tobacco abuse: Counseled to quit smoking. 7. DVT prophylaxis: ELIEL Aguilar. Per infectious disease, if repeat blood culture remains negative at 5 days, continue IV cefepime and Levaquin until 09/27/17, then can discharge on 4 weeks of oral Levaquin. Problem Qualifiers (1) Sepsis: Qualified Codes: A41.9 - Sepsis, unspecified organism Lev Uribe MD Sep 23, 2017 11:46
[2017-09-23 12:00] VITALS: BP 107/52; PULSE 88; RESP 18; TEMP 98.1; O2SAT 100
--- NOTE | 2017-09-23 15:01 | PD.CARD.PN ---
Subjective Subjective Remarks No CP or SOB Objective Medications Current Medications Medications (Trade) Dose Ordered Sig/Vikas Route Start Time Stop Time Status Last Admin Cefepime HCl 1000 mg/Sodium Chloride 100 ml @ 200 mls/hr Q12H IV 09/18/17 01:00 09/23/17 13:10 Levofloxacin/ Dextrose 150 ml @ 100 mls/hr Q24H IV 09/18/17 02:00 09/23/17 01:54 Sodium Chloride 1,000 ml @ 100 mls/hr Q10H IV 09/17/17 23:44 09/23/17 13:24 (NS Flush) 2 ml UNSCH PRN IV FLUSH 09/17/17 23:45 (NS Flush) 2 ml BID IV FLUSH 09/18/17 09:00 09/20/17 09:00 (Zofran Inj) 4 mg Q6H PRN IVP 09/17/17 23:45 (Tylenol) 650 mg Q6H PRN PO 09/17/17 23:45 09/19/17 09:04 (Roxicodone) 10 mg Q4H PRN PO 09/17/17 23:45 (Roxicodone) 5 mg Q4H PRN PO 09/17/17 23:45 (Arabella-Colace) 1 tab BID PO 09/18/17 09:00 09/22/17 22:34 (Milk Of Magnesia Liq) 30 ml Q12H PRN PO 09/17/17 23:45 (Senokot) 17.2 mg Q12H PRN PO 09/17/17 23:45 (Dulcolax Supp) 10 mg DAILY PRN RECTAL 09/17/17 23:45 (Lactulose Liq) 30 ml DAILY PRN PO 09/17/17 23:45 (Ecotrin Ec) 162 mg DAILY PO 09/19/17 13:15 09/23/17 09:42 Vital Signs / I&O Vital Signs Date Time Temp Pulse Resp B/P (MAP) Pulse Ox O2 Delivery O2 Flow Rate FiO2 09/23/17 12:00 98.1 88 18 107/52 (70) 100 09/23/17 08:00 97.9 79 18 107/52 (70) 99 09/23/17 04:00 97.7 82 20 110/55 (73) 99 09/23/17 00:00 98.6 81 17 109/57 (74) 99 09/22/17 20:00 97.7 88 20 119/59 (79) 99 09/22/17 16:00 97.7 83 16 111/57 (75) 99 I/O 09/22/17 09/22/17 09/22/17 09/23/17 09/23/17 09/23/17 07:00 15:00 23:00 07:00 15:00 23:00 Intake Total 100 ml 1150 ml 100 ml 100 ml Balance 100 ml 1150 ml 100 ml 100 ml IV Total 100 ml 1150 ml 100 ml 100 ml # Voids 2 2 2 # Bowel Movements 0 0 0 1 Physical Exam GENERAL: In NAD SKIN: Warm and dry. HEAD: Normocephalic. EYES: No scleral icterus. No injection or drainage. NECK: Supple, trachea midline. No JVD or lymphadenopathy. CARDIOVASCULAR: Regular rate and rhythm without murmurs, gallops, or rubs. RESPIRATORY: Breath sounds equal bilaterally. No accessory muscle use. GASTROINTESTINAL: Abdomen soft, non-tender, nondistended. MUSCULOSKELETAL: No cyanosis, or edema. Assessment and Plan Problem List: (1) Sepsis ICD Codes: A41.9 - Sepsis, unspecified organism Status: Acute (2) Bacteremia ICD Codes: R78.81 - Bacteremia (3) UTI (urinary tract infection) ICD Codes: N39.0 - Urinary tract infection, site not specified (4) CVA (cerebral vascular accident) ICD Codes: I63.9 - Cerebral infarction, unspecified (5) Cocaine abuse ICD Codes: F14.10 - Cocaine abuse, uncomplicated Assessment and Plan Remains stable from cardiac standpoint. No new cardiac issues. No angina or CHF. Continue IV antibiotics for sepsis/bacteremia as per ID. Recent NOHELIA with no evidence of endocarditis. DC home once IV abxs completed. F/u w PCP as outpt. Problem Qualifiers (1) Sepsis: Qualified Codes: A41.9 - Sepsis, unspecified organism Leslie Rg MD Sep 23, 2017 15:01
[2017-09-23 16:00] VITALS: BP 126/55; PULSE 87; RESP 18; TEMP 98.7; O2SAT 99
[2017-09-23 20:00] VITALS: BP 116/54; PULSE 82; RESP 18; TEMP 98.3; O2SAT 98
[2017-09-24] VITALS: BP 118/55; PULSE 85; RESP 18; TEMP 98.2; O2SAT 98
[2017-09-24] MEDS: CEFEPIME INJ 1,000 MG in SODIUM CHLORIDE 0.9% INJ 100 ML IV SCH ×2 (02:24→11:47)
[2017-09-24] MEDS: LEVOFLOXACIN 750 MG PREMIX INJ 150 ML IV SCH (03:26)
[2017-09-24] MEDS: SODIUM CHLOR 0.9% 1000 ML INJ 1,000 ML IV SCH ×2 (03:28→11:48)
[2017-09-24 04:00] VITALS: BP 111/58; PULSE 80; RESP 18; TEMP 98.1; O2SAT 100
[2017-09-24 07:46] VITALS: BP 111/55; PULSE 78; RESP 18; TEMP 98.3; O2SAT 100
[2017-09-24] MEDS: SODIUM CHLORIDE 0.9% FLUSH 10 ML FLUSH IV FLUSH SCH ×2 (07:46→20:30)
[2017-09-24] MEDS: DOCUSATE SODIUM 50 MG/SENNA 8.6 MG TAB PO SCH ×2 (07:46→20:30)
[2017-09-24] MEDS: ASPIRIN EC 81 MG TABEC PO SCH (07:46)
--- NOTE | 2017-09-24 10:37 | HHI.PR ---
Subjective Remarks Follow up bacteremia. Patient has no complaints at this time. He wants to go home. Denies chest pain, dyspnea, nausea, vomiting, diarrhea. Objective Vitals Vital Signs Date Time Temp Pulse Resp B/P (MAP) Pulse Ox O2 Delivery O2 Flow Rate FiO2 09/24/17 07:46 98.3 78 18 111/55 (73) 100 09/24/17 04:00 98.1 80 18 111/58 (75) 100 09/24/17 00:00 98.2 85 18 118/55 (76) 98 09/23/17 20:00 98.3 82 18 116/54 (74) 98 09/23/17 16:00 98.7 87 18 126/55 (78) 99 09/23/17 12:00 98.1 88 18 107/52 (70) 100 I/O 09/23/17 09/23/17 09/23/17 09/24/17 09/24/17 09/24/17 07:00 15:00 23:00 07:00 15:00 23:00 Intake Total 100 ml 1250 ml 1192 ml Balance 100 ml 1250 ml 1192 ml IV Total 100 ml 1250 ml 1192 ml # Voids 2 2 2 # Bowel Movements 0 1 Result Diagram: 09/22/1745 09/22/1745 Imaging Last Impressions Thoracic Spine MRI 09/21/17 0000 Signed Impressions: Service Date/Time: Thursday, September 21, 2017 14:26 - CONCLUSION: 1. No evidence of acute inflammatory disease or abscess. 2. Mild degenerative disc disease at T6-7 and T7-8 3. Mild loss of vertebral body height as described without evidence of acute compression fracture. 4. No evidence of disc herniation. Roshan Quispe MD Lumbar Spine MRI 09/21/17 0000 Signed Impressions: Service Date/Time: Thursday, September 21, 2017 14:26 - CONCLUSION: 1. No evidence of acute inflammatory disease or abscess. 2. Mild annular bulging with posterior annular fissure at L5-S1. 3. No other significant abnormality. Roshan Quispe MD Abdomen/Pelvis CT 09/21/17 0000 Signed Impressions: Service Date/Time: Thursday, September 21, 2017 13:10 - CONCLUSION: 3 small focal defects in the spleen. Large defect in the right kidney with day smaller defect adjacent to the larger defect. This could be embolic inflammatory changes. Correlation suggested. There is no abscess. Ramakrishna Cotter MD FACR Hand X-Ray 09/20/17 0000 Signed Impressions: Service Date/Time: Wednesday, September 20, 2017 14:47 - CONCLUSION: Focal soft tissue prominence at the lateral aspect of the index finger adjacent to the middle phalanx. Orion Reid MD Objective Remarks General: Disheveled male in no acute distress. Smells strongly of cigarette smoke. Heart: Regular rate and rhythm. No murmur. Lungs: Clear to auscultation bilaterally. No wheezes, rales, or rhonchi. Breathing is nonlabored. Abdomen: Soft, nontender, nondistended. Extremities: No lower extremity edema. Psych: Alert and oriented. Procedures None Urinary Catheter: No Vascular Central Line Catheter: No A/P Problem List: (1) Sepsis ICD Code: A41.9 - Sepsis, unspecified organism Status: Acute (2) Bacteremia ICD Code: R78.81 - Bacteremia (3) UTI (urinary tract infection) ICD Code: N39.0 - Urinary tract infection, site not specified (4) CVA (cerebral vascular accident) ICD Code: I63.9 - Cerebral infarction, unspecified (5) Cocaine abuse ICD Code: F14.10 - Cocaine abuse, uncomplicated (6) Tobacco abuse ICD Code: Z72.0 - Tobacco use Assessment and Plan 09/24/17 No change. Continue antibiotics per infectious disease recommendations. Right arm weakness/tremor slightly improved per patient. 1. Severe Sepsis: Patient presented with fever, tachycardia, leukocytosis. Serum lactic acid increased to 3.4, then trended down. Source bacteremia. Continue IV antibiotics. Appreciate infectious disease recommendations. Urine culture from 09/10/17 also growing Pseudomonas. 2. Bacteremia: Blood cultures growing Pseudomonas and enterococcus. Urine culture from 09/10/17 growing Pseudomonas. Continue antibiotics. Patient had NOHELIA done by Dr. Rg on 09/15/17, but left AGAINST MEDICAL ADVICE following the procedure. No documentation is available from the procedure, however per Dr. Rg's consult, NOHELIA showed no evidence of vegetation. No source of bacteremia has been identified. MRI/CT show no other source of infection. Appreciate hand surgery recommendations. Not felt to have active infection in the hand. 3. UTI: Urinalysis improved. On antibiotics. 4. CVA: Patient had left-sided weakness on previous admission. He was evaluated by neurology at that time. MRI of the brain on 09/10/17 showed small scattered bilateral infarcts predominantly in the right MCA distribution. Continue aspirin. Avoid statin due to elevated LFTs. Monitor LFTs. 5. Cocaine abuse: Urine drug screen positive for cocaine on admission last week. Patient denies history of cocaine or IV drug use. 6. Tobacco abuse: Counseled to quit smoking. 7. DVT prophylaxis: ELIEL Aguilar. Per infectious disease, if repeat blood culture remains negative at 5 days, continue IV cefepime and Levaquin until 09/27/17, then can discharge on 4 weeks of oral Levaquin. Problem Qualifiers (1) Sepsis: Qualified Codes: A41.9 - Sepsis, unspecified organism Lev Uribe MD Sep 24, 2017 10:37
[2017-09-24 11:36] VITALS: BP 104/54; PULSE 87; RESP 18; TEMP 98.5; O2SAT 99
--- NOTE | 2017-09-24 13:59 | PD.CARD.PN ---
Subjective Subjective Remarks No CP or SOB, feels fine Objective Medications Current Medications Medications (Trade) Dose Ordered Sig/Vikas Route Start Time Stop Time Status Last Admin Cefepime HCl 1000 mg/Sodium Chloride 100 ml @ 200 mls/hr Q12H IV 09/18/17 01:00 09/24/17 11:47 Levofloxacin/ Dextrose 150 ml @ 100 mls/hr Q24H IV 09/18/17 02:00 09/24/17 03:26 Sodium Chloride 1,000 ml @ 100 mls/hr Q10H IV 09/17/17 23:44 09/24/17 11:48 (NS Flush) 2 ml UNSCH PRN IV FLUSH 09/17/17 23:45 (NS Flush) 2 ml BID IV FLUSH 09/18/17 09:00 09/24/17 07:46 (Zofran Inj) 4 mg Q6H PRN IVP 09/17/17 23:45 (Tylenol) 650 mg Q6H PRN PO 09/17/17 23:45 09/19/17 09:04 (Roxicodone) 10 mg Q4H PRN PO 09/17/17 23:45 (Roxicodone) 5 mg Q4H PRN PO 09/17/17 23:45 (Arabella-Colace) 1 tab BID PO 09/18/17 09:00 09/24/17 07:46 (Milk Of Magnesia Liq) 30 ml Q12H PRN PO 09/17/17 23:45 (Senokot) 17.2 mg Q12H PRN PO 09/17/17 23:45 (Dulcolax Supp) 10 mg DAILY PRN RECTAL 09/17/17 23:45 (Lactulose Liq) 30 ml DAILY PRN PO 09/17/17 23:45 (Ecotrin Ec) 162 mg DAILY PO 09/19/17 13:15 09/24/17 07:46 Vital Signs / I&O Vital Signs Date Time Temp Pulse Resp B/P (MAP) Pulse Ox O2 Delivery O2 Flow Rate FiO2 09/24/17 11:36 98.5 87 18 104/54 (71) 99 09/24/17 07:46 98.3 78 18 111/55 (73) 100 09/24/17 04:00 98.1 80 18 111/58 (75) 100 09/24/17 00:00 98.2 85 18 118/55 (76) 98 09/23/17 20:00 98.3 82 18 116/54 (74) 98 09/23/17 16:00 98.7 87 18 126/55 (78) 99 I/O 09/23/17 09/23/17 09/23/17 09/24/17 09/24/17 09/24/17 07:00 15:00 23:00 07:00 15:00 23:00 Intake Total 100 ml 1250 ml 1192 ml Balance 100 ml 1250 ml 1192 ml IV Total 100 ml 1250 ml 1192 ml # Voids 2 2 2 # Bowel Movements 0 1 Physical Exam GENERAL: In NAD SKIN: Warm and dry. HEAD: Normocephalic. EYES: No scleral icterus. No injection or drainage. NECK: Supple, trachea midline. No JVD or lymphadenopathy. CARDIOVASCULAR: Regular rate and rhythm without murmurs, gallops, or rubs. RESPIRATORY: Breath sounds equal bilaterally. No accessory muscle use. GASTROINTESTINAL: Abdomen soft, non-tender, nondistended. MUSCULOSKELETAL: No cyanosis, or edema. Assessment and Plan Problem List: (1) Sepsis ICD Codes: A41.9 - Sepsis, unspecified organism Status: Acute (2) Bacteremia ICD Codes: R78.81 - Bacteremia (3) UTI (urinary tract infection) ICD Codes: N39.0 - Urinary tract infection, site not specified (4) CVA (cerebral vascular accident) ICD Codes: I63.9 - Cerebral infarction, unspecified (5) Cocaine abuse ICD Codes: F14.10 - Cocaine abuse, uncomplicated Assessment and Plan Remains stable from cardiac standpoint. Continue IV antibiotics for sepsis/ bacteremia as per ID. Recent NOHELIA showed no evidence of endocarditis. DC home once IV abxs completed (tentatively Mon). F/u w PCP. Problem Qualifiers (1) Sepsis: Qualified Codes: A41.9 - Sepsis, unspecified organism Leslie Rg MD Sep 24, 2017 13:59
[2017-09-24 15:43] VITALS: BP 108/54; PULSE 80; RESP 18; TEMP 98.2; O2SAT 99
[2017-09-24 21:30] VITALS: BP 111/58; PULSE 88; RESP 17; TEMP 98.1; O2SAT 98
[2017-09-25] VITALS (7 sets, daily range): BP systolic 110–120; BP diastolic 57–60; PULSE 72–95; RESP 16–20; TEMP 97.6–98.7; O2SAT 95–100
[2017-09-25] MEDS: CEFEPIME INJ 1,000 MG in SODIUM CHLORIDE 0.9% INJ 100 ML IV SCH ×2 (00:39→14:15)
[2017-09-25] MEDS: LEVOFLOXACIN 750 MG PREMIX INJ 150 ML IV SCH (01:38)
[2017-09-25] MEDS: SODIUM CHLOR 0.9% 1000 ML INJ 1,000 ML IV SCH ×3 (01:38→21:44)
[2017-09-25] MEDS: ASPIRIN EC 81 MG TABEC PO SCH (08:02)
[2017-09-25] MEDS: DOCUSATE SODIUM 50 MG/SENNA 8.6 MG TAB PO SCH ×2 (09:00→19:33)
[2017-09-25] MEDS: SODIUM CHLORIDE 0.9% FLUSH 10 ML FLUSH IV FLUSH SCH ×2 (09:00→19:34)
[2017-09-25 09:30] LABS: BASOPHIL # 0.1 TH/MM3 (0-0.2); BASOPHIL % 0.8 % (0.0-2.0); EOSINOPHIL # 0.1 TH/MM3 (0-0.4); EOSINOPHIL % 0.9 % (0.0-4.0); HEMATOCRIT 33.9 % (39.0-51.0); HEMOGLOBIN 11.4 GM/DL (13.0-17.0); LYMPH % 16.2 % (9.0-44.0); LYMPHOCYTE # 2.1 TH/MM3 (1.0-4.8); MEAN CELL VOLUME 84.9 FL (80.0-100.0); MEAN CORPUSCULAR HEMOGLOBIN 28.7 PG (27.0-34.0); MEAN CORPUSCULAR HGB CONC 33.8 % (32.0-36.0); MEAN PLATELET VOLUME 7.5 FL (7.0-11.0); MONO % 4.9 % (0.0-8.0); MONOCYTE # 0.6 TH/MM3 (0-0.9); NEUT % 77.2 % (16.0-70.0); PLATELET COUNT 429 TH/MM3 (150-450); RED BLOOD COUNT 3.99 MIL/MM3 (4.50-5.90); RED CELL DISTRIBUTION WIDTH 14.2 % (11.6-17.2)
[2017-09-25 09:52] LABS: ALBUMIN 2.6 GM/DL (3.4-5.0); AST (GOT) 28 U/L (15-37); BICARBONATE 26.5 MEQ/L (21.0-32.0); BLOOD UREA NITROGEN 11 MG/DL (7-18); CALCIUM 8.8 MG/DL (8.5-10.1); CHLORIDE 103 MEQ/L (98-107); CREATININE 0.81 MG/DL (0.60-1.30); GLOMERULAR FILTRATION RATE 101 ML/MIN (>89); GLUCOSE,RANDOM 120 MG/DL (74-106); SODIUM (NA) 137 MEQ/L (136-145)
[2017-09-25 09:53] LABS: ALT (GPT) 102 U/L (12-78)
[2017-09-25 09:55] LABS: ALKALINE PHOSPHATASE 102 U/L (45-117); TOTAL BILIRUBIN ADULT 0.3 MG/DL (0.2-1.0); TOTAL PROTEIN 7.7 GM/DL (6.4-8.2)
--- NOTE | 2017-09-25 11:26 | HHI.PR ---
Subjective Remarks Follow up bacteremia. Patient has no complaints at this time. Wants to go home tomorrow. Objective Vitals Vital Signs Date Time Temp Pulse Resp B/P (MAP) Pulse Ox O2 Delivery O2 Flow Rate FiO2 09/25/17 08:28 98.4 87 20 120/60 (80) 100 09/25/17 04:45 98.6 72 16 110/59 (76) 98 09/25/17 00:00 97.6 84 18 115/60 (78) 97 09/24/17 21:30 98.1 88 17 111/58 (75) 98 09/24/17 15:43 98.2 80 18 108/54 (72) 99 09/24/17 11:36 98.5 87 18 104/54 (71) 99 I/O 09/24/17 09/24/17 09/24/17 09/25/17 09/25/17 09/25/17 07:00 15:00 23:00 07:00 15:00 23:00 Intake Total 1192 ml 1110 ml 350 ml Balance 1192 ml 1110 ml 350 ml Intake Oral 1110 ml 100 ml IV Total 1192 ml 250 ml # Voids 2 1 4 # Bowel Movements 0 0 Result Diagram: 09/25/17 0816 09/25/17 0846 Imaging Last Impressions Thoracic Spine MRI 09/21/17 0000 Signed Impressions: Service Date/Time: Thursday, September 21, 2017 14:26 - CONCLUSION: 1. No evidence of acute inflammatory disease or abscess. 2. Mild degenerative disc disease at T6-7 and T7-8 3. Mild loss of vertebral body height as described without evidence of acute compression fracture. 4. No evidence of disc herniation. Roshan Quispe MD Lumbar Spine MRI 09/21/17 0000 Signed Impressions: Service Date/Time: Thursday, September 21, 2017 14:26 - CONCLUSION: 1. No evidence of acute inflammatory disease or abscess. 2. Mild annular bulging with posterior annular fissure at L5-S1. 3. No other significant abnormality. Roshan Quispe MD Abdomen/Pelvis CT 09/21/17 0000 Signed Impressions: Service Date/Time: Thursday, September 21, 2017 13:10 - CONCLUSION: 3 small focal defects in the spleen. Large defect in the right kidney with day smaller defect adjacent to the larger defect. This could be embolic inflammatory changes. Correlation suggested. There is no abscess. Ramakrishna Cotter MD FACR Hand X-Ray 09/20/17 0000 Signed Impressions: Service Date/Time: Wednesday, September 20, 2017 14:47 - CONCLUSION: Focal soft tissue prominence at the lateral aspect of the index finger adjacent to the middle phalanx. Orion Reid MD Objective Remarks General: Male in no acute distress. Heart: Regular rate and rhythm. No murmur. Lungs: Clear to auscultation bilaterally. No wheezes, rales, or rhonchi. Breathing is nonlabored. Abdomen: Soft, nontender, nondistended. Extremities: No lower extremity edema. Psych: Alert and oriented. Procedures None Urinary Catheter: No Vascular Central Line Catheter: No A/P Problem List: (1) Sepsis ICD Code: A41.9 - Sepsis, unspecified organism Status: Acute (2) Bacteremia ICD Code: R78.81 - Bacteremia (3) UTI (urinary tract infection) ICD Code: N39.0 - Urinary tract infection, site not specified (4) CVA (cerebral vascular accident) ICD Code: I63.9 - Cerebral infarction, unspecified (5) Cocaine abuse ICD Code: F14.10 - Cocaine abuse, uncomplicated (6) Tobacco abuse ICD Code: Z72.0 - Tobacco use Assessment and Plan 09/25/17 No change. Continue antibiotics per infectious disease recommendations. Right arm weakness/tremor continues to improve per patient. He is working on writing/fine motor skills. 1. Severe Sepsis: Patient presented with fever, tachycardia, leukocytosis. Serum lactic acid increased to 3.4, then trended down. Source bacteremia. Continue IV antibiotics. Appreciate infectious disease recommendations. Urine culture from 09/10/17 also growing Pseudomonas. 2. Bacteremia: Blood cultures growing Pseudomonas and enterococcus. Urine culture from 09/10/17 growing Pseudomonas. Continue antibiotics. Patient had NOHELIA done by Dr. Rg on 09/15/17, but left AGAINST MEDICAL ADVICE following the procedure. No documentation is available from the procedure, however per Dr. Rg's consult, NOHELIA showed no evidence of vegetation. No source of bacteremia has been identified. MRI/CT show no other source of infection. Appreciate hand surgery recommendations. Not felt to have active infection in the hand. 3. UTI: Urinalysis improved. On antibiotics. 4. CVA: Patient had left-sided weakness on previous admission. He was evaluated by neurology at that time. MRI of the brain on 09/10/17 showed small scattered bilateral infarcts predominantly in the right MCA distribution. Continue aspirin. Avoid statin due to elevated LFTs. Monitor LFTs. 5. Cocaine abuse: Urine drug screen positive for cocaine on admission last week. Patient denies history of cocaine or IV drug use. 6. Tobacco abuse: Counseled to quit smoking. 7. DVT prophylaxis: ELIEL Aguilar. Per infectious disease, if repeat blood culture remains negative at 5 days, continue IV cefepime and Levaquin until 09/27/17, then can discharge on 4 weeks of oral Levaquin. Discharge Planning Possible discharge on 09/27/17 with oral antibiotics per infectious disease. Problem Qualifiers (1) Sepsis: Qualified Codes: A41.9 - Sepsis, unspecified organism Lev Uribe MD Sep 25, 2017 11:26
[2017-09-26] MEDS: CEFEPIME INJ 1,000 MG in SODIUM CHLORIDE 0.9% INJ 100 ML IV SCH ×2 (00:59→13:20)
[2017-09-26] MEDS: LEVOFLOXACIN 750 MG PREMIX INJ 150 ML IV SCH (02:47)
[2017-09-26 03:45] VITALS: BP 120/63; PULSE 89; RESP 23; TEMP 98.3; O2SAT 95
[2017-09-26] MEDS: SODIUM CHLOR 0.9% 1000 ML INJ 1,000 ML IV SCH ×2 (07:44→21:15)
[2017-09-26 08:19] VITALS: BP 108/71; PULSE 83; RESP 20; TEMP 97.4; O2SAT 100
[2017-09-26] MEDS: SODIUM CHLORIDE 0.9% FLUSH 10 ML FLUSH IV FLUSH SCH ×2 (09:00→21:15)
[2017-09-26] MEDS: DOCUSATE SODIUM 50 MG/SENNA 8.6 MG TAB PO SCH ×2 (09:00→21:15)
[2017-09-26 09:12] LABS: AUTOMATED NEUTROPHIL # 8.2 TH/MM3 (1.8-7.7); BASOPHIL # 0.1 TH/MM3 (0-0.2); BASOPHIL % 0.9 % (0.0-2.0); EOSINOPHIL # 0.1 TH/MM3 (0-0.4); EOSINOPHIL % 1.2 % (0.0-4.0); HEMOGLOBIN 11.9 GM/DL (13.0-17.0); LYMPH % 17.9 % (9.0-44.0); MEAN CELL VOLUME 85.1 FL (80.0-100.0); MEAN CORPUSCULAR HEMOGLOBIN 28.9 PG (27.0-34.0); MEAN PLATELET VOLUME 7.6 FL (7.0-11.0); MONO % 7.2 % (0.0-8.0); MONOCYTE # 0.8 TH/MM3 (0-0.9); NEUT % 72.8 % (16.0-70.0); PLATELET COUNT 380 TH/MM3 (150-450); RED BLOOD COUNT 4.12 MIL/MM3 (4.50-5.90); RED CELL DISTRIBUTION WIDTH 14.4 % (11.6-17.2); WHITE BLOOD COUNT 11.3 TH/MM3 (4.0-11.0)
--- NOTE | 2017-09-26 09:32 | HHI.PR ---
Subjective Remarks Follow up bacteremia. Patient has no complaints at this time. He wants to go home today. Objective Vitals Vital Signs Date Time Temp Pulse Resp B/P (MAP) Pulse Ox O2 Delivery O2 Flow Rate FiO2 09/26/17 08:19 97.4 83 20 108/71 (83) 100 09/26/17 03:45 98.3 89 23 120/63 (82) 95 09/25/17 20:45 98.7 86 16 112/59 (76) 99 09/25/17 16:02 98.5 88 20 114/57 (76) 99 09/25/17 11:48 97.7 95 20 120/58 (78) 100 I/O 09/25/17 09/25/17 09/25/17 09/26/17 09/26/17 09/26/17 06:59 14:59 22:59 06:59 14:59 22:59 Intake Total 350 ml 1040 ml 2500 ml 1300 ml Balance 350 ml 1040 ml 2500 ml 1300 ml Intake Oral 100 ml 940 ml 2500 ml 1050 ml IV Total 250 ml 100 ml 250 ml # Voids 4 4 1 3 # Bowel Movements 0 1 0 0 Result Diagram: 09/26/17 0845 09/25/17 0846 Imaging Last Impressions Thoracic Spine MRI 09/21/17 0000 Signed Impressions: Service Date/Time: Thursday, September 21, 2017 14:26 - CONCLUSION: 1. No evidence of acute inflammatory disease or abscess. 2. Mild degenerative disc disease at T6-7 and T7-8 3. Mild loss of vertebral body height as described without evidence of acute compression fracture. 4. No evidence of disc herniation. Roshan Quispe MD Lumbar Spine MRI 09/21/17 0000 Signed Impressions: Service Date/Time: Thursday, September 21, 2017 14:26 - CONCLUSION: 1. No evidence of acute inflammatory disease or abscess. 2. Mild annular bulging with posterior annular fissure at L5-S1. 3. No other significant abnormality. Roshan Quispe MD Abdomen/Pelvis CT 09/21/17 0000 Signed Impressions: Service Date/Time: Thursday, September 21, 2017 13:10 - CONCLUSION: 3 small focal defects in the spleen. Large defect in the right kidney with day smaller defect adjacent to the larger defect. This could be embolic inflammatory changes. Correlation suggested. There is no abscess. Ramakrishna Cotter MD FACR Hand X-Ray 09/20/17 0000 Signed Impressions: Service Date/Time: Wednesday, September 20, 2017 14:47 - CONCLUSION: Focal soft tissue prominence at the lateral aspect of the index finger adjacent to the middle phalanx. Orion Reid MD Objective Remarks General: Male in no acute distress. Heart: Regular rate and rhythm. No murmur. Lungs: Clear to auscultation bilaterally. No wheezes, rales, or rhonchi. Breathing is nonlabored. Abdomen: Soft, nontender, nondistended. Extremities: No lower extremity edema. Psych: Alert and oriented. Procedures None Urinary Catheter: No Vascular Central Line Catheter: No A/P Problem List: (1) Sepsis ICD Code: A41.9 - Sepsis, unspecified organism Status: Acute (2) Bacteremia ICD Code: R78.81 - Bacteremia (3) UTI (urinary tract infection) ICD Code: N39.0 - Urinary tract infection, site not specified (4) CVA (cerebral vascular accident) ICD Code: I63.9 - Cerebral infarction, unspecified (5) Cocaine abuse ICD Code: F14.10 - Cocaine abuse, uncomplicated (6) Tobacco abuse ICD Code: Z72.0 - Tobacco use Assessment and Plan 09/26/17 No change. Continue antibiotics per infectious disease recommendations. Right arm weakness/tremor continues to improve per patient. 1. Severe Sepsis: Patient presented with fever, tachycardia, leukocytosis. Serum lactic acid increased to 3.4, then trended down. Source bacteremia. Continue IV antibiotics. Appreciate infectious disease recommendations. Urine culture from 09/10/17 also growing Pseudomonas. 2. Bacteremia: Blood cultures growing Pseudomonas and enterococcus. Urine culture from 09/10/17 growing Pseudomonas. Continue antibiotics. Patient had NOHELIA done by Dr. Rg on 09/15/17, but left AGAINST MEDICAL ADVICE following the procedure. No documentation is available from the procedure, however per Dr. Rg's consult, NOHELIA showed no evidence of vegetation. No source of bacteremia has been identified. MRI/CT show no other source of infection. Appreciate hand surgery recommendations. Not felt to have active infection in the hand. 3. UTI: Urinalysis improved. On antibiotics. 4. CVA: Patient had left-sided weakness on previous admission. He was evaluated by neurology at that time. MRI of the brain on 09/10/17 showed small scattered bilateral infarcts predominantly in the right MCA distribution. Continue aspirin. Avoid statin due to elevated LFTs. Monitor LFTs. 5. Cocaine abuse: Urine drug screen positive for cocaine on admission last week. Patient denies history of cocaine or IV drug use. 6. Tobacco abuse: Counseled to quit smoking. 7. DVT prophylaxis: ELIEL Aguilar. Per infectious disease, if repeat blood culture remains negative at 5 days, continue IV cefepime and Levaquin until 09/27/17, then can discharge on 4 weeks of oral Levaquin. Discharge Planning Anticipate discharge on 09/27/17 with oral antibiotics, unless infectious disease clears patient for discharge today. Problem Qualifiers (1) Sepsis: Qualified Codes: A41.9 - Sepsis, unspecified organism Lev Uribe MD Sep 26, 2017 09:32
--- NOTE | 2017-09-26 09:33 | HHI.DCPOC ---
Discharge Care Plan Diagnosis: (1) Bacteremia (2) CVA (cerebral vascular accident) Goals to Promote Your Health * To prevent worsening of your condition and complications * To maintain your health at the optimal level Directions to Meet Your Goals Take your medications as prescribed Follow your dietary instruction Follow activity as directed Keep your appointments as scheduled Take your immunizations and boosters as scheduled If your symptoms worsen call your PCP, if no PCP go to Urgent Care Center or Emergency Room Smoking is Dangerous to Your Health. Avoid second hand smoke Call the 24-hour hour crisis hotline for domestic abuse at Lev Uribe MD Sep 26, 2017 09:33
[2017-09-26] MEDS ORDERED: LEVO750T3 PO (09:35)
[2017-09-26] MEDS ORDERED: ECASA81 PO (09:35)
[2017-09-26] MEDS: ASPIRIN EC 81 MG TABEC PO SCH (09:43)
[2017-09-26 11:56] VITALS: BP 111/54; PULSE 85; RESP 20; TEMP 99; O2SAT 100
[2017-09-26 16:23] VITALS: BP 111/54; PULSE 88; RESP 20; TEMP 98.2; O2SAT 98
[2017-09-26 20:30] VITALS: BP 129/60; PULSE 94; RESP 18; TEMP 97.7; O2SAT 100
[2017-09-27 00:40] VITALS: BP 131/60; PULSE 89; RESP 17; TEMP 97.6; O2SAT 99
[2017-09-27] MEDS: CEFEPIME INJ 1,000 MG in SODIUM CHLORIDE 0.9% INJ 100 ML IV SCH (01:06)
[2017-09-27] MEDS: LEVOFLOXACIN 750 MG PREMIX INJ 150 ML IV SCH (02:34)
[2017-09-27] MEDS: SODIUM CHLOR 0.9% 1000 ML INJ 1,000 ML IV SCH ×2 (03:53→11:14)
[2017-09-27 05:00] VITALS: BP 128/60; PULSE 82; RESP 17; TEMP 98.4; O2SAT 99
[2017-09-27] MEDS: DOCUSATE SODIUM 50 MG/SENNA 8.6 MG TAB PO SCH (07:43)
[2017-09-27] MEDS: SODIUM CHLORIDE 0.9% FLUSH 10 ML FLUSH IV FLUSH SCH (07:43)
[2017-09-27] MEDS: ASPIRIN EC 81 MG TABEC PO SCH (07:43)
[2017-09-27 08:14] VITALS: BP 130/62; PULSE 90; RESP 18; TEMP 97.9; O2SAT 100
--- NOTE | 2017-09-27 12:00 | HHI.DS ---
Discharge Summary Admission Date Sep 17, 2017 at 23:44 Discharge Date: Sep 27, 2017 Admitting Diagnosis Sepsis (1) Sepsis ICD Code: A41.9 - Sepsis, unspecified organism Diagnosis: Principal Status: Acute (2) Bacteremia ICD Code: R78.81 - Bacteremia (3) UTI (urinary tract infection) ICD Code: N39.0 - Urinary tract infection, site not specified (4) CVA (cerebral vascular accident) ICD Code: I63.9 - Cerebral infarction, unspecified (5) Cocaine abuse ICD Code: F14.10 - Cocaine abuse, uncomplicated (6) Tobacco abuse ICD Code: Z72.0 - Tobacco use Procedures None Brief History - From Admission This is a 52-year-old male with a PMH of Tobacco Abuse and Cocaine Abuse who presented to the ER with complaints of generalized malaise addition to subjective fevers/chills. Recent admit 09/10/17 for complaints of left-sided weakness and slurred speech, CT Head noted to have questionable hypodensity mid right cerebral hemisphere, MRI Brain 09/10/17 with small scattered bilateral infarcts in right MCA distribution, thought to be thromboembolic event, possibly secondary to endocarditis as pt w/ Pseudomonas UTI and Bacteremia in addition to +Cocaine w/ questionable IVDU. S/p eval by Dr. Roberson, on Levaquin/Cefepime IV, also eval by Dr. Rg, s/p Echo 09/13/17 w/ EF 60%. Plan for NOHELIA, however it appears pt LEFT AMA prior to NOHELIA. Returns now because "not feeling good". Denies Cocaine or IVDU. On arrival, BP 105/57, HR 132, O2 sat 97% on RA, Temp 101.4. WBC 21.8. Chemistry essentially unremarkable except for GFR 85. Lactic Acid 1.9. INR 1.1. UA, Urine Drug Screen pending. S/p Blood Cultures, Vanc/Zosyn in ER. CBC/BMP: 09/26/17 0845 09/25/17 0846 Significant Findings Laboratory Tests Test 09/25/17 08:16 09/25/17 08:46 09/26/17 08:45 White Blood Count 13.0 TH/MM3 (4.0-11.0) 11.3 TH/MM3 (4.0-11.0) Red Blood Count 3.99 MIL/MM3 (4.50-5.90) 4.12 MIL/MM3 (4.50-5.90) Hemoglobin 11.4 GM/DL (13.0-17.0) 11.9 GM/DL (13.0-17.0) Hematocrit 33.9 % (39.0-51.0) 35.0 % (39.0-51.0) Neutrophils (%) (Auto) 77.2 % (16.0-70.0) 72.8 % (16.0-70.0) Neutrophils # (Auto) 10.0 TH/MM3 (1.8-7.7) 8.2 TH/MM3 (1.8-7.7) Random Glucose 120 MG/DL (74-106) Albumin 2.6 GM/DL (3.4-5.0) Alanine Aminotransferase (ALT/SGPT) 102 U/L (12-78) Imaging Last Impressions Thoracic Spine MRI 09/21/17 Signed Impressions: Service Date/Time: Thursday, September 21, 2017 14:26 - CONCLUSION: 1. No evidence of acute inflammatory disease or abscess. 2. Mild degenerative disc disease at T6-7 and T7-8 3. Mild loss of vertebral body height as described without evidence of acute compression fracture. 4. No evidence of disc herniation. Roshan Quispe MD Lumbar Spine MRI 09/21/17 0000 Signed Impressions: Service Date/Time: Thursday, September 21, 2017 14:26 - CONCLUSION: 1. No evidence of acute inflammatory disease or abscess. 2. Mild annular bulging with posterior annular fissure at L5-S1. 3. No other significant abnormality. Roshan Quispe MD Abdomen/Pelvis CT 09/21/17 0000 Signed Impressions: Service Date/Time: Thursday, September 21, 2017 13:10 - CONCLUSION: 3 small focal defects in the spleen. Large defect in the right kidney with day smaller defect adjacent to the larger defect. This could be embolic inflammatory changes. Correlation suggested. There is no abscess. Ramakrishna Cotter MD FACR Hand X-Ray 09/20/17 0000 Signed Impressions: Service Date/Time: Wednesday, September 20, 2017 14:47 - CONCLUSION: Focal soft tissue prominence at the lateral aspect of the index finger adjacent to the middle phalanx. Orion Reid MD PE at Discharge General: Male in no acute distress. Heart: Regular rate and rhythm. No murmur. Lungs: Clear to auscultation bilaterally. No wheezes, rales, or rhonchi. Breathing is nonlabored. Abdomen: Soft, nontender, nondistended. Extremities: No lower extremity edema. Psych: Alert and oriented. Pt update on day of discharge The patient was resting comfortably in bed. He is anxious to go home. He had no acute complaints. Discussed with nursing. Hospital Course Severe Sepsis Patient presented with fever, tachycardia, leukocytosis. Serum lactic acid increased to 3.4, then trended down. Source was bacteremia. Blood cultures growing pseudomonas and enterococcus. Urine culture from 09/10/17 growing pseudomonas. Patient had NOHELIA done by Dr. Rg on 09/15/17, but left AGAINST MEDICAL ADVICE following the procedure. No documentation is available from the procedure, however per Dr. Rg's consult, NOHELIA showed no evidence of vegetation. No source of bacteremia has been identified. MRI/CT show no other source of infection. Hand surgery consulted and recommended monitoring for hand swelling. He was started on IV antibiotics per infectious disease. He will complete four weeks of PO Levaquin upon discharge per ID. He will have a CBC repeated in one week. History of CVA Patient had left-sided weakness on previous admission. He was evaluated by neurology at that time. MRI of the brain on 09/10/17 showed small scattered bilateral infarcts predominantly in the right MCA distribution. We continued aspirin. Will avoid statin due to elevated LFTs. Monitor LFTs in one week. Outpt follow-up with neurology. Cocaine abuse/ Tobacco abuse Urine drug screen positive for cocaine on last admission. Patient denies history of cocaine or IV drug use. Cessation instruction given. Pt Condition on Discharge: Stable Discharge Disposition: Discharge Home Discharge Time: > 30 minutes Discharge Instructions DIET: Follow Instructions for: Heart Healthy Diet Activities you can perform: Weight Bearing as Hakeem Follow up Referrals: Neurology - 2 Weeks with Boom Shrestha MD PCP Follow-up - 2 Weeks New Orders: CBC WITH DIFF - 1 Week COMP MET PROF (CMP) - 1 Week New Medications: Levofloxacin (Levofloxacin) 750 Mg Tablet 750 MG PO DAILY for Infection, #28 TAB [address] (Aspirin DR) 81 Mg Tabdr 162 MG PO DAILY for Blood Clot Prevention, #30 TAB 0 Refills Jerad Wright DO Sep 27, 2017 12:00
== END 2017-09-27 12:31 | disposition home or self-care (01) | DRG 872 ==
LOC: NEPE 21:15 → NEDA 23:44 → N05A 09-18 01:41
PROVIDERS: ADMIT Hospitalist; ATTEND Hospitalist
DX: A41.52 Sepsis due to Pseudomonas (principal); N39.0 Urinary tract infection, site not specified; R65.20 Severe sepsis without septic shock; R00.0 Tachycardia, unspecified; Z86.73 Personal history of transient ischemic attack (TIA), and cerebral infarction without residual deficits; M79.89 Other specified soft tissue disorders; F17.210 Nicotine dependence, cigarettes, uncomplicated
CPT/HCPCS: 72157; 72158; 73130; 74177; 80048; 80053; 80307; 81001; 83605; 85007; 85025; 85027; 85610; 85730; 87040; 87077; 87186; 87205; 96361; 96374; 96375; A9579; J0692; J1956; J2543; J3370; J7030; J7050; Q9963; Q9967

== ENCOUNTER 2017-11-10 10:18 | Inpatient (IN) | payer SELFPAY ==
[2017-11-10] VITALS (12 sets, daily range): BP systolic 95–116; BP diastolic 26–56; PULSE 79–128; RESP 22–35; TEMP 97.8–103.1; O2SAT 95–100
[~2017-11-10] VITALS: Ht 188 cm; Wt 76.6 kg
[~2017-11-10 10:18] MED LIST changes: +ECASA81 PO; +LEVO750T3 PO; -Z.0.NO CURRENT MEDS
[2017-11-10] MEDS ORDERED: VANCOMYCIN INJ 1,000 MG in SODIUM CHLOR 0.9% 250 ML INJ 250 ML IV STA (10:36)
[2017-11-10] MEDS ORDERED: CEFEPIME INJ 2,000 MG in SODIUM CHLORIDE 0.9% INJ 100 ML IV STA (10:36)
--- NOTE | 2017-11-10 10:45 | PD ---
HPI Chief Complaint: Neuro Symptoms/ Deficits Time Seen by Provider: 10:36 Travel History International Travel<30 days: No Contact w/Intl Traveler<30days: No Traveled to known affect area: No History of Present Illness HPI 52-year-old male patient with history of CVA, previous episodes of sepsis, presents to the ER today brought in by family because this morning he was found disoriented, difficulty speaking. He has a fever of 103. He has no other complaints. Modifying Factors: None Associated Signs & Symptoms: Fever, altered mental status Risk Factors: Previous episode of sepsis PFSH Past Medical History Cancer: No Cardiovascular Problems: No Endocrine: No Genitourinary: No Immune Disorder: No Musculoskeletal: No Neurologic: No Psychiatric: No Reproductive: No Respiratory: No Past Surgical History Other Surgery: Yes Social History Alcohol Use: No Tobacco Use: Yes (1/2 pack a day ) Substance Use: No Allergies-Medications (Allergen,Severity, Reaction): Coded Allergies: No Known Allergies (Verified Allergy, Unknown, 11/10/17) Reported Meds & Prescriptions Reported Meds & Active Scripts Active Aspirin DR (Aspirin) 81 Mg Tabdr 162 Mg PO DAILY Review of Systems ROS Limitations: Altered Mental Status Physical Exam Narrative GENERAL: Well-developed middle-age male patient currently in moderate distress, awake, lethargic, disoriented. SKIN: Focused skin assessment warm/dry. HEAD: Atraumatic. Normocephalic. EYES: Pupils equal and round. No scleral icterus. No injection or drainage. ENT: No nasal bleeding or discharge. Mucous membranes pink and moist. NECK: Trachea midline. No JVD. CARDIOVASCULAR: Regular rate and rhythm. No murmur appreciated. RESPIRATORY: No accessory muscle use. Clear to auscultation. Breath sounds equal bilaterally. GASTROINTESTINAL: Abdomen soft, non-tender, nondistended. Hepatic and splenic margins not palpable. MUSCULOSKELETAL: No obvious deformities. No clubbing. No cyanosis. No edema. NEUROLOGICAL: Awake and alert. No obvious cranial nerve deficits. Motor grossly within normal limits. Normal speech. PSYCHIATRIC: Appropriate mood and affect; insight and judgment normal. Data Data Last Documented VS Vital Signs Date Time Temp Pulse Resp B/P (MAP) Pulse Ox O2 Delivery O2 Flow Rate FiO2 11/10/17 11:22 102.5 11/10/17 11:12 98 Room Air 11/10/17 11:01 2.00 11/10/17 10:21 128 24 Orders Orders Sepsis Workup Initiated (11/10/17 ) Complete Blood Count With Diff (11/10/17 10:36) Comprehensive Metabolic Panel (11/10/17 10:36) Lactic Acid Sepsis Protocol (11/10/17 10:36) Urinalysis - C+S If Indicated (11/10/17 10:36) Influenzae A/B Antigen (11/10/17 10:36) Blood Culture (11/10/17 10:36) Chest, Single Ap (11/10/17 10:36) Blood Glucose (11/10/17 10:36) Ecg Monitoring (11/10/17 10:36) Iv Access Insert/Monitor (11/10/17 10:36) Oximetry (11/10/17 10:36) Oxygen Administration (11/10/17 10:36) Ct Brain W/O Iv Contrast(Rout) (11/10/17 10:36) Vancomycin Inj (Vancomycin Inj) (11/10/17 10:36) Cefepime Inj (Maxipime Inj) (11/10/17 10:36) Sodium Chlor 0.9% 1000 Ml Inj (Ns 1000 M (11/10/17 11:30) Acetaminophen Supp (Tylenol Supp) (11/10/17 11:30) Admit Order (Ed Use Only) (11/10/17 12:57) Labs Laboratory Tests Test 11/10/17 10:45 11/10/17 11:00 White Blood Count 20.8 TH/MM3 Red Blood Count 4.36 MIL/MM3 Hemoglobin 12.2 GM/DL Hematocrit 36.1 % Mean Corpuscular Volume 82.7 FL Mean Corpuscular Hemoglobin 28.1 PG Mean Corpuscular Hemoglobin Concent 33.9 % Red Cell Distribution Width 16.2 % Platelet Count 168 TH/MM3 Mean Platelet Volume 9.0 FL Neutrophils (%) (Auto) 95.6 % Lymphocytes (%) (Auto) 1.9 % Monocytes (%) (Auto) 2.3 % Eosinophils (%) (Auto) 0.0 % Basophils (%) (Auto) 0.2 % Neutrophils # (Auto) 19.8 TH/MM3 Lymphocytes # (Auto) 0.4 TH/MM3 Monocytes # (Auto) 0.5 TH/MM3 Eosinophils # (Auto) 0.0 TH/MM3 Basophils # (Auto) 0.0 TH/MM3 CBC Comment DIFF FINAL Differential Comment Blood Urea Nitrogen 49 MG/DL Creatinine 2.87 MG/DL Random Glucose 143 MG/DL Total Protein 8.5 GM/DL Albumin 2.9 GM/DL Calcium Level 8.7 MG/DL Alkaline Phosphatase 189 U/L Aspartate Amino Transf (AST/SGOT) 124 U/L Alanine Aminotransferase (ALT/SGPT) 98 U/L Total Bilirubin 0.9 MG/DL Sodium Level 130 MEQ/L Potassium Level 4.4 MEQ/L Chloride Level 98 MEQ/L Carbon Dioxide Level 16.6 MEQ/L Anion Gap 15 MEQ/L Estimat Glomerular Filtration Rate 23 ML/MIN Lactic Acid Level 2.9 mmol/L MDM Medical Decision Making Medical Screen Exam Complete: Yes Emergency Medical Condition: Yes Medical Record Reviewed: Yes Interpretation(s) Laboratory Tests Test 11/10/17 10:45 11/10/17 11:00 White Blood Count 20.8 TH/MM3 (4.0-11.0) Red Blood Count 4.36 MIL/MM3 (4.50-5.90) Hemoglobin 12.2 GM/DL (13.0-17.0) Hematocrit 36.1 % (39.0-51.0) Neutrophils (%) (Auto) 95.6 % (16.0-70.0) Lymphocytes (%) (Auto) 1.9 % (9.0-44.0) Neutrophils # (Auto) 19.8 TH/MM3 (1.8-7.7) Lymphocytes # (Auto) 0.4 TH/MM3 (1.0-4.8) Blood Urea Nitrogen 49 MG/DL (7-18) Creatinine 2.87 MG/DL (0.60-1.30) Random Glucose 143 MG/DL (74-106) Total Protein 8.5 GM/DL (6.4-8.2) Albumin 2.9 GM/DL (3.4-5.0) Alkaline Phosphatase 189 U/L (45-117) Aspartate Amino Transf (AST/SGOT) 124 U/L (15-37) Alanine Aminotransferase (ALT/SGPT) 98 U/L (12-78) Sodium Level 130 MEQ/L (136-145) Carbon Dioxide Level 16.6 MEQ/L (21.0-32.0) Estimat Glomerular Filtration Rate 23 ML/MIN (>89) Lactic Acid Level 2.9 mmol/L (0.4-2.0) Last 24 hours Impressions Chest X-Ray 11/10/17 1036 Signed Impressions: Service Date/Time: Friday, November 10, 2017 10:54 - CONCLUSION: No acute cardiopulmonary process. Kirby Trejo MD Differential Diagnosis Altered mental status, fever: Sepsis versus dehydration versus metabolic issues versus influenza versus acute intracranial processes versus acute CVA Narrative Course Lab work shows significant signs of sepsis and IV antibiotics were initiated after blood cultures were drawn. CAT scan is showing possible new right-sided CVA. Patient has had history of CVA in the past right-sided weakness. At this point, my plan would be to admit the patient for further treatment. Case was discussed with Dr. Ledesma for admission. He would like the patient to be admitted to the critical care unit considering his multiple complaints and severe sepsis. Aggregate critical care time was 30 minutes. Time to perform other separately billable procedures was not included in the critical care time. My time did not include minutes spent treating any other patients simultaneously or on activities that did not directly contribute to the patient's treatment. The services I provided to this patient were to treat and/or prevent clinically significant deterioration that could result in: Worsening CVA, ICH, septic shock , I provided critical care services requiring my management, as noted below: Chart data review, documentation time, medication orders and management, vital sign assessments/reviewing monitor data, ordering and reviewing lab tests, ordering and interpreting/reviewing x-rays and diagnostic studies, care of the patient and discussion of the patient with the admitting physicians. Diagnosis Primary Impression: CVA (cerebral vascular accident) Additional Impression: Severe sepsis Admitting Information Admitting Physician Requests: Admit Lauryn Mcelroy MD Nov 10, 2017 10:45
[2017-11-10 11:17] LABS: AUTOMATED NEUTROPHIL # 19.8 TH/MM3 (1.8-7.7); BASOPHIL % 0.2 % (0.0-2.0); HEMATOCRIT 36.1 % (39.0-51.0); HEMOGLOBIN 12.2 GM/DL (13.0-17.0); LYMPH % 1.9 % (9.0-44.0); LYMPHOCYTE # 0.4 TH/MM3 (1.0-4.8); MEAN CELL VOLUME 82.7 FL (80.0-100.0); MEAN CORPUSCULAR HEMOGLOBIN 28.1 PG (27.0-34.0); MEAN CORPUSCULAR HGB CONC 33.9 % (32.0-36.0); MONO % 2.3 % (0.0-8.0); MONOCYTE # 0.5 TH/MM3 (0-0.9); NEUT % 95.6 % (16.0-70.0); PLATELET COUNT 168 TH/MM3 (150-450); RED BLOOD COUNT 4.36 MIL/MM3 (4.50-5.90); RED CELL DISTRIBUTION WIDTH 16.2 % (11.6-17.2); WHITE BLOOD COUNT 20.8 TH/MM3 (4.0-11.0)
[2017-11-10] MEDS ORDERED: SODIUM CHLOR 0.9% 1000 ML INJ 1,000 ML IV ONE ×3 (11:30→14:15)
[2017-11-10] MEDS ORDERED: ACETAMINOPHEN 650 MG SUPP RECTAL ONE (11:30)
[2017-11-10 11:32] LABS: LACTIC ACID SEPSIS PROTOCOL 2.9 mmol/L (0.4-2.0)
[2017-11-10 11:37] LABS: ALBUMIN 2.9 GM/DL (3.4-5.0); BICARBONATE 16.6 MEQ/L (21.0-32.0); BLOOD UREA NITROGEN 49 MG/DL (7-18); CALCIUM 8.7 MG/DL (8.5-10.1); CHLORIDE 98 MEQ/L (98-107); CREATININE 2.87 MG/DL (0.60-1.30); GLOMERULAR FILTRATION RATE 23 ML/MIN (>89); GLUCOSE,RANDOM 143 MG/DL (74-106); SODIUM (NA) 130 MEQ/L (136-145)
--- NOTE | 2017-11-10 11:42 | RADRPT ---
EXAM DATE/TIME: 11/10/2017 10:54 [facility] COMPARISON: CHEST SINGLE AP, September 10, 2017, 17:00. INDICATIONS : Fever. MEDICAL HISTORY : Cardiovascular disease. SURGICAL HISTORY : None. ENCOUNTER: Initial ACUITY: 1 day PAIN SCORE: 0/10 LOCATION: Bilateral chest FINDINGS: A single view of the chest demonstrates the lungs to be symmetrically aerated without evidence of mas s, infiltrate or effusion. The cardiomediastinal contours are unremarkable. Osseous structures are intact with some degenerative spurring of the dorsal spine. CONCLUSION: No acute cardiopulmonary process. Kirby Trejo MD on November 10, 2017 at 11:38 Board Certified Radiologist. This report was verified electronically.
[2017-11-10 11:46] LABS: ALKALINE PHOSPHATASE 189 U/L (45-117); ALT (GPT) 98 U/L (12-78); AST (GOT) 124 U/L (15-37); TOTAL BILIRUBIN ADULT 0.9 MG/DL (0.2-1.0); TOTAL PROTEIN 8.5 GM/DL (6.4-8.2)
--- NOTE | 2017-11-10 12:41 | RADRPT ---
EXAM DATE/TIME: 11/10/2017 12:16 [facility] COMPARISON: CT BRAIN W/O CONTRAST, September 10, 2017, 17:16. INDICATIONS : Altered mental status. RADIATION DOSE: 41.06 CTDIvol (mGy) MEDICAL HISTORY : Cerebrovascular disease. SURGICAL HISTORY : None. ENCOUNTER: Initial ACUITY: 1 day PAIN SCALE: 0/10 LOCATION: cranial TECHNIQUE: Multiple contiguous axial images were obtained of the head. Using automated exposure control and adj ustment of the mA and/or kV according to patient size, radiation dose was kept as low as reasonably a chievable to obtain optimal diagnostic quality images. DICOM format image data is available electro nically for review and comparison. FINDINGS: CEREBRUM: There is hypodensity in the left frontal high and low convexity. The area of low density involves the subcortical white matter and dominguez matter, suggesting either represent cytotoxic edema. This finding is new since the prior study. Ventricles are normal. There is focal low density in the right frontal periventricular white matter likely representing an area of old ischemia. No midline shift, mass les ion, or hemorrhage. No extra-axial fluid collections are seen. POSTERIOR FOSSA: The cerebellum and brainstem demonstrate no acute finding. The 4th ventricle is midline. The cerebe llopontine angle is unremarkable. EXTRACRANIAL: Visualized sinuses are clear. SKULL: The calvaria is intact. No evidence of skull fracture. CONCLUSION: There is abnormal low density, likely representing cytotoxic edema, in the left frontal lobe. This ve ry likely is related to a recent ischemic event. Reji Dasilva MD on November 10, 2017 at 12:35 Board Certified Radiologist. This report was verified electronically.
[2017-11-10] MEDS ORDERED: ASPIRIN 300 MG SUPP RECTAL ONE (13:00)
[2017-11-10] MEDS ORDERED: SODIUM CHLOR 0.9% 1000 ML INJ 1,000 ML IV SCH ×5 (14:07→17:45)
[2017-11-10] MEDS ORDERED: MAGNESIUM HYDROXIDE SUSP 30 ML CUP PO PRN (14:15)
[2017-11-10] MEDS ORDERED: Vancomycin Consult Pharmacy 1 EA OTHER SCH (14:15)
[2017-11-10] MEDS ORDERED: BISACODYL 10 MG SUPP RECTAL PRN (14:15)
[2017-11-10] MEDS ORDERED: VANCOMYCIN INJ 1,251 MG in SODIUM CHLORID 0.9% 500 ML INJ 500 ML IV SCH (14:15)
[2017-11-10] MEDS ORDERED: NALOXONE HCL 0.4 MG/ML AMP IV PUSH PRN (14:15)
[2017-11-10] MEDS ORDERED: SENNOSIDES 8.6 MG TAB PO PRN (14:15)
[2017-11-10] MEDS ORDERED: LACTULOSE SYRUP 20 GM/30 ML CUP PO PRN (14:15)
[2017-11-10 15:42] LABS: BACTERIA, URINE MOD /hpf; BLOOD, URINE SMALL (NEG); GLUCOSE,URINE TRACE mg/dL (NEG); HYALINE CAST, URINE 7 /lpf (RARE); KETONE, URINE NEG (NEG); MUCUS URINE FEW /lpf (OCC); NITRITE,URINE NEG (NEG); SQUAMOUS EPITHELIAL CELL URINE <1 /hpf (0-5); URINE COLOR DARK-YELLOW (YELLW/STRAW); URINE LEUKOCYTE ESTERASE SMALL (NEG); WHITE BLOOD CELL CAST, URINE 7 /lpf
[2017-11-10 15:48] LABS: BILIRUBIN, URINE NEG (NEG)
[2017-11-10] MEDS ORDERED: VANCOMYCIN INJ 750 MG in SODIUM CHLOR 0.9% 250 ML INJ 250 ML IV ONE (16:00)
--- NOTE | 2017-11-10 16:03 | RADRPT ---
EXAM DATE/TIME: 11/10/2017 14:47 [facility] COMPARISON: No previous studies available for comparison. INDICATIONS : Increased liver function tests. MEDICAL HISTORY : CVA. Tobacco use. SURGICAL HISTORY : Right hand surgery. ENCOUNTER: Initial ACUITY: 1 day PAIN SCORE: 0/10 LOCATION: Bilateral upper quadrant MEASUREMENTS: LIVER: 21.4 cm length COMMON DUCT: 3 mm RIGHT KIDNEY: 13.5 x 6.2 x 4.6 cm SPLEEN: 13.2 cm length FINDINGS: LIVER: Increased echotexture without focal lesion or ductal dilatation. COMMON DUCT: No intraluminal mass or stone visualized. GALLBLADDER: Contains no stones, demonstrates no wall thickening or pericholecystic fluid. Small, 3 mm mural poly p PANCREAS: The visualized portions are within normal limits. RIGHT KIDNEY: No hydronephrosis, stone or mass. Small cortical cyst in the upper and lower pole measure between 7 and 12 mm. SPLEEN: spleen is enlarged with a complex echogenic structure laterally in the mid body which ma y represent a focal area of scarring. CONCLUSION: 1. Liver and spleen are both enlarged with multiple diffuse hepatic fatty infiltration. 2. Linear echogenic area within the lateral mid body of the spleen may represent a focal area of scar ring. 3. Benign renal cortical cysts of the right kidney. 4. Small 3 mm gallbladder polyp. Gallbladder is otherwise sonographically normal. Kirby Trejo MD on November 10, 2017 at 15:58 Board Certified Radiologist. This report was verified electronically.
[2017-11-10] MEDS: SODIUM CHLOR 0.9% 1000 ML INJ 1,000 ML IV SCH ×2 (18:47→23:48)
[2017-11-10] MEDS: MUPIROCIN 2% OINT 1 APPLIC/GM SYR NASAL SCH (20:36)
[2017-11-10] MEDS: DOCUSATE SODIUM 50 MG/SENNA 8.6 MG TAB PO SCH (20:37)
[2017-11-10] MEDS: SODIUM CHLORIDE 0.9% FLUSH 10 ML FLUSH IV FLUSH SCH (20:37)
--- NOTE | 2017-11-10 21:23 | RADRPT ---
EXAM DATE/TIME: 11/10/2017 20:51 [facility] COMPARISON: MRI BRAIN W/O CONTRAST, September 10, 2017, 21:01. CT BRAIN W/O CONTRAST, November 10, 2017, 12:16. INDICATIONS : Stroke. Slurred speech and some confusion. MEDICAL HISTORY : Cerebrovascular disease. SURGICAL HISTORY : Hand sx. ENCOUNTER: Initial ACUITY: 2 day PAIN SCORE: 4/10 LOCATION: Bilateral cranial TECHNIQUE: Multiplanar, multisequence MRI of the brain was performed without contrast. FINDINGS: There is an area of abnormal diffusion involving the left frontoparietal junction corresponding to the area of diminished attenuation in the patient's CT examination characteristic of acute infarct ion. Previously seen infarction in the right periventricular area on the MRI dated 09/10/2017 in omero tion to the right side of the near cerebellar peduncle have evolved. There are additional areas of pu nctate bright signal on diffusion portion involving the right cerebellum medially, multiple areas in the left temporal lobe not present previously in addition to multiple punctate areas of dominguez-white ju nction of left frontal and posterior parietal lobe not present previously. There is no hemorrhage or mass effect. CONCLUSION: The eighth of diminished attenuation involving the left frontoparietal junction on th e patient's prior CT examination corresponds to acute infarction in addition to multiple other areas of new acute infarction bilaterally not present on the prior MRI dated 09/10/2017 and previously seen acute infarctions on the right side on that study have been evolved. Findings were discussed with t keren patient's nurse Chandan on 11/10/2017 9:19 PM. Fernanda Padilla MD on November 10, 2017 at 21:16 Board Certified Radiologist. This report was verified electronically.
[2017-11-10] MEDS: CEFEPIME INJ 2,000 MG in SODIUM CHLORIDE 0.9% INJ 100 ML IV SCH (22:15)
--- NOTE | 2017-11-10 22:28 | HHI.HP ---
[facility] No Primary Care Physician Admission Diagnosis Severe sepsis/altered mental status/CVA Diagnoses: Chief Complaint: Change in mental status, aphasia Travel History International Travel<30 Days: No Contact w/Intl Traveler <30 Da: No Traveled to Known Affected Are: No History of Present Illness 52 years old male with H/O CVA last August presented to the ED with transitional change in mental status not being able to verbalize words patient seems to be able to understand words however he cannot answer verbally which is consistent with expressive aphasia he said he has been having sweating since last night started with a weakness on his left side, there was a fever of 103 with positive chills, patient denied any pain, he reported cough with no significant phlegm, he denied any diarrhea abdominal pain nausea vomiting or dysuria As mentioned above patient had multiple bilateral small ischemic stroke in August 2017 he was seen by neurologist and sent home on baby aspirin 2 tablets In the previous admission there was a concern for right heart endocarditis however NOHELIA did not reveal any vegetation Review of Systems All systems reviewed and was positive for what is mentioned in history of present illness otherwise negative Past Family Social History Past Medical History History of CVA August 2017 Allergies: Coded Allergies: No Known Allergies (Verified Allergy, Unknown, 11/10/17) Family History Review with the patient,not aware of significant medical history runs in his family Social History Patient quit drinking before his CVA in August, the not smoking, history of cocaine from previous record Physical Exam Vital Signs Vital Signs Date Time Temp Pulse Resp B/P (MAP) Pulse Ox O2 Delivery O2 Flow Rate FiO2 11/10/17 15:36 98.5 81 25 95/52 (66) 98 11/10/17 14:55 11/10/17 14:18 98.3 95 22 100/51 (67) 100 Room Air 11/10/17 13:17 99.1 11/10/17 13:00 102 31 105/52 (69) 99 Nasal Cannula 2.00 11/10/17 12:45 106 30 106/52 (70) 99 Nasal Cannula 2.00 11/10/17 11:22 102.5 11/10/17 11:12 98 Room Air 11/10/17 11:01 Nasal Cannula 2.00 11/10/17 11:00 120 35 112/56 (74) 97 Room Air 11/10/17 10:21 103.1 128 24 116/56 (76) 95 Physical Exam GENERAL: This is a well-nourished, well-developed patient, in no apparent distress. SKIN: No rashes, warm and dry HEAD: Atraumatic. Normocephalic. EYES: Pupils equal round and reactive. Extraocular motions intact. No scleral icterus. ENT: Nose without bleeding, or drainage, Airway patent. NECK: Trachea midline. Supple CARDIOVASCULAR: Regular rate and rhythm without murmurs, gallops, or rubs. RESPIRATORY: Bibasilar crackles no significant wheezing GASTROINTESTINAL: Abdomen soft, mild tenderness on the right flank and the right upper quadrant with negative Perry sign r, nondistended. Positive bowel sounds MUSCULOSKELETAL: Extremities without clubbing, cyanosis, or edema. Pedal pulses appreciated NEUROLOGICAL: Awake alert oriented cranial nerves II through XII intact, motor strength 5 out of 5 in all extremity, sensation intact, positive expressive aphasia Laboratory Laboratory Tests Test 11/10/17 10:45 11/10/17 11:00 11/10/17 13:30 11/10/17 14:20 White Blood Count 20.8 Red Blood Count 4.36 Hemoglobin 12.2 Hematocrit 36.1 Mean Corpuscular Volume 82.7 Mean Corpuscular Hemoglobin 28.1 Mean Corpuscular Hemoglobin Concent 33.9 Red Cell Distribution Width 16.2 Platelet Count 168 Mean Platelet Volume 9.0 Neutrophils (%) (Auto) 95.6 Lymphocytes (%) (Auto) 1.9 Monocytes (%) (Auto) 2.3 Eosinophils (%) (Auto) 0.0 Basophils (%) (Auto) 0.2 Neutrophils # (Auto) 19.8 Lymphocytes # (Auto) 0.4 Monocytes # (Auto) 0.5 Eosinophils # (Auto) 0.0 Basophils # (Auto) 0.0 CBC Comment DIFF FINAL Differential Comment Blood Urea Nitrogen 49 Creatinine 2.87 Random Glucose 143 Total Protein 8.5 Albumin 2.9 Calcium Level 8.7 Alkaline Phosphatase 189 Aspartate Amino Transf (AST/SGOT) 124 Alanine Aminotransferase (ALT/SGPT) 98 Total Bilirubin 0.9 Sodium Level 130 Potassium Level 4.4 Chloride Level 98 Carbon Dioxide Level 16.6 Anion Gap 15 Estimat Glomerular Filtration Rate 23 Lactic Acid Level 2.9 1.1 Urine Color DARK-YELLOW Urine Turbidity HAZY Urine pH 5.0 Urine Specific Lynch 1.021 Urine Protein 30 Urine Glucose (UA) TRACE Urine Ketones NEG Urine Occult Blood SMALL Urine Nitrite NEG Urine Bilirubin NEG Urine Urobilinogen 2.0 Urine Leukocyte Esterase SMALL Urine RBC 8 Urine WBC 14 Urine Squamous Epithelial Cells <1 Urine Bacteria MOD Urine Hyaline Casts 7 Urine White Blood Cell Casts 7 Urine Mucus FEW Microscopic Urinalysis Comment CATH-CULTURE IND Test 11/10/17 15:40 Nasal Screen MRSA (PCR) MRSA NOT DETECTED Date/Time Source Procedure Growth Status 11/10/17 10:55 Blood Peripheral Aerobic Blood Culture Pending Received 11/10/17 10:55 Blood Peripheral Anaerobic Blood Culture Pending Received 11/10/17 11:15 Nasal Washing Influenza Types A,B Antigen (SERENITY) - Final NEGATIVE FOR FLU A AND B ANTIGEN.... Complete 11/10/17 14:20 Urine Catheterized Urine Urine Culture Pending Received Result Diagram: 11/10/17 1045 11/10/17 1045 Imaging Last Impressions Head CT 11/10/17 1036 Signed Impressions: Service Date/Time: Friday, November 10, 2017 12:16 - CONCLUSION: There is abnormal low density, likely representing cytotoxic edema, in the left frontal lobe. This very likely is related to a recent ischemic event. Reji Dasilva MD Chest X-Ray 11/10/17 1036 Signed Impressions: Service Date/Time: Friday, November 10, 2017 10:54 - CONCLUSION: No acute cardiopulmonary process. Kirby Trejo MD Brain MRI 11/10/17 0000 Signed Impressions: Service Date/Time: Friday, November 10, 2017 20:51 - CONCLUSION: The eighth of diminished attenuation involving the left frontoparietal junction on the patient's prior CT examination corresponds to acute infarction in addition to multiple other areas of new acute infarction bilaterally not present on the prior MRI dated 09/10/2017 and previously seen acute infarctions on the right side on that study have been evolved. Findings were discussed with the patient's nurse Chandan on 11/10/2017 9:19 PM. MD Jose L Terrazasi VTE Risk Assessment Caprini VTE Risk Assessment: Mod/High Risk (score >= 2) Caprini Risk Assessment Model Point Value = 1 Point Value = 2 Point Value = 3 Point Value = 5 Age 41-60 Minor surgery BMI > 25 kg/m2 Swollen legs Varicose veins or History of unexplained or recurrent spontaneous Oral contraceptives or hormone replacement Sepsis (< 1 month) Serious lung disease, including pneumonia (< 1 month) Abnormal pulmonary function Acute myocardial infarction Congestive heart failure (< 1 month) History of inflammatory bowel disease Medical patient at bed rest Age 61-74 Arthroscopic surgery Major open surgery (> 45 min) Laparoscopic surgery (> 45 min) Malignancy Confined to bed (> 72 hours) Immobilizing plaster cast Central venous access Age >= 75 History of VTE Family history of VTE Factor V Leiden Prothrombin [id number] Lupus anticoagulant Anticardiolipin antibodies Elevated serum homocysteine Heparin-induced thrombocytopenia Other congenital or acquired thrombophilia Stroke (< 1 month) Elective arthroplasty Hip, pelvis, or leg fracture Acute spinal cord injury (< 1 month) Prophylaxis Regimen Total Risk Factor Score Risk Level Prophylaxis Regimen 0-1 Low Early ambulation 2 Moderate Order ONE of the following: *Sequential Compression Device (SCD) *Heparin 5000 units SQ BID 3-4 Higher Order ONE of the following medications: *Heparin 5000 units SQ TID *Enoxaparin/Lovenox 40 mg SQ daily (WT < 150 kg, CrCl > 30 mL/min) *Enoxaparin/Lovenox 30 mg SQ daily (WT < 150 kg, CrCl > 10-29 mL/min) *Enoxaparin/Lovenox 30 mg SQ BID (WT < 150 kg, CrCl > 30 mL/min) AND/OR *Sequential Compression Device (SCD) 5 or more Highest Order ONE of the following medications: *Heparin 5000 units SQ TID (Preferred with Epidurals) *Enoxaparin/Lovenox 40 mg SQ daily (WT < 150 kg, CrCl > 30 mL/min) *Enoxaparin/Lovenox 30 mg SQ daily (WT < 150 kg, CrCl > 10-29 mL/min) *Enoxaparin/Lovenox 30 mg SQ BID (WT < 150 kg, CrCl > 30 mL/min) AND *Sequential Compression Device (SCD) Assessment and Plan Assessment and Plan 52 years old male with history of cocaine abuse and recent CVA presented with Disorientation/expressive aphasia due to f left frontoparietal ischemic stroke shown on MRI of the brain History of recent bilateral parietal ischemia in August 2017, with concern at that time for right heart with endocarditis/bacteremia Suspect sepsis with febrile illness 103, tachycardia hypotension, leukocytosis with bandemia and left shift, lactic acidosis>> still unknown source of infection, chest x-ray unremarkable, awaiting UA Lactic acidosis Dehydration REGIS on possible CKD Increased transaminases with alk phos seems to be chronic from previous admission Acute non-anion gap metabolic acidosis DVT prophylaxis Plan: Admit to ICU with close monitoring under telemetry MRI/MRA, ultrasound of the carotid, 2D echo has been ordered CT and MRI of the head personally reviewed by me Started on broad-spectrum antibiotics cefepime and Vanco Consult neurology Aggressive hydration with normal saline Strict LINNETTE Monitor BMP, lactic acid Liver ultrasound with hepatitis panel Consider ID consultation in light of previous suspicion for bacteremia and right heart endocarditis Discussed Condition With Patient and nurse Physician Certification 2 Midnight Certification Type: Admission for Inpatient Services Order for Inpatient Services The services are ordered in accordance with Medicare regulations or non- Medicare payer requirements, as applicable. In the case of services not specified as inpatient-only, they are appropriately provided as inpatient services in accordance with the 2-midnight benchmark. Estimated LOS (days): 3 days is the estimated time the patient will need to remain in the hospital, assuming treatment plan goals are met and no additional complications. Post-Hospital Plan: Not yet determined Kenay Ledesma MD Nov 10, 2017 22:28
[2017-11-10 22:55] LABS: BICARBONATE 21.1 MEQ/L (21.0-32.0); CALCIUM 7.9 MG/DL (8.5-10.1); CREATININE 2.2 MG/DL (0.60-1.30); MAGNESIUM 2.7 MG/DL (1.5-2.5); PHOSPHORUS 4.8 MG/DL (2.5-4.9)
--- NOTE | 2017-11-10 22:55 | MB ---
cc: JON NORTH M.D. DATE OF CONSULTATION: 11/10/2017 REASON FOR CONSULTATION: Neurological consultation. HISTORY OF PRESENT ILLNESS: The patient is a 52-year-old male seen in neurological consultation. He came in today with history of being disoriented this morning and having speech difficulty. He has been sick and having some symptoms for a couple of days. He had a fever of 103. He has shown some improvement after given IV fluids and antibiotics. Interestingly I reviewed the records from August 2017. I saw him at that time when he had multiple bilateral small ischemic strokes. The evaluation was negative for endocarditis or heart thrombus. He had cocaine. He was discharged I believe on aspirin. He says he has been taking 2 tablets of baby aspirin a day. He has not seen any other doctors and he does not follow with medical care. It appears that he takes no other medications. NEUROLOGICAL EXAMINATION: The neurologic exam shows the patient to be awake, reasonably alert and grossly oriented. He knew the date, the place. He has mild difficulty expressing himself and mild right facial weakness. He probably has some right distal upper extremity weakness as well. Reflexes were 1-2 plus. Plantar response flexor. Visual almeida full. I looked at the CT brain he had completed today and the study shows a left frontal subacute infarct. This is much different from the previous MRI brain in August when he had small areas of ischemia in the bilateral hemisphere. ASSESSMENT 1. New left frontal infarct. In August of 2017, he had small bilateral ischemic areas. 2. History of drug abuse. He was negative for endocarditis in August of 2017. He comes in with a new stroke and a fever of 103, probably related to sepsis. Again endocarditis remains a consideration. If the evaluation is negative for this diagnosis, then he should be treated with anticoagulation, though I am not sure he is really a good candidate for these due to compliance and the history of drug abuse Nontheless, this possibility needs to be entertained. I have requested an MRI of brain, sed rate, echocardiogram. I will follow the neurological care. Thank you for asking us to assist in his care. Jon North MD [facility] /8:15 PM /10:34 PM
[2017-11-10] MEDS: HEPARIN SODIUM - SQ 10,000 UNITS/ML VIAL SQ SCH (23:12)
[2017-11-11] VITALS (12 sets, daily range): BP systolic 117–125; BP diastolic 56–60; PULSE 83–103; RESP 21–37; TEMP 98.8–100; O2SAT 92–100
[2017-11-11] MEDS: CEFEPIME INJ 2,000 MG in SODIUM CHLORIDE 0.9% INJ 100 ML IV SCH ×3 (05:27→21:57)
[2017-11-11] MEDS: HEPARIN SODIUM - SQ 10,000 UNITS/ML VIAL SQ SCH ×3 (05:27→21:58)
[2017-11-11 05:49] LABS: AUTOMATED NEUTROPHIL # 14.4 TH/MM3 (1.8-7.7); BASOPHIL # 0.1 TH/MM3 (0-0.2); BASOPHIL % 0.4 % (0.0-2.0); EOSINOPHIL % 0.2 % (0.0-4.0); HEMATOCRIT 28.4 % (39.0-51.0); HEMOGLOBIN 9.7 GM/DL (13.0-17.0); LYMPH % 9.7 % (9.0-44.0); LYMPHOCYTE # 1.7 TH/MM3 (1.0-4.8); MEAN CELL VOLUME 82.4 FL (80.0-100.0); MEAN CORPUSCULAR HEMOGLOBIN 28.1 PG (27.0-34.0); MEAN CORPUSCULAR HGB CONC 34.1 % (32.0-36.0); MEAN PLATELET VOLUME 9.1 FL (7.0-11.0); MONO % 9.8 % (0.0-8.0); MONOCYTE # 1.8 TH/MM3 (0-0.9); NEUT % 79.9 % (16.0-70.0); PLATELET COUNT 137 TH/MM3 (150-450); RED BLOOD COUNT 3.44 MIL/MM3 (4.50-5.90)
[2017-11-11 05:54] LABS: INTERNATIONAL NORMALIZED RATIO 1.3 RATIO
[2017-11-11 06:22] LABS: ALBUMIN 2.2 GM/DL (3.4-5.0); BICARBONATE 16.8 MEQ/L (21.0-32.0); CALCIUM 7.7 MG/DL (8.5-10.1); CHOLESTEROL/ HDL RATIO 14.21 RATIO; CREATININE 1.74 MG/DL (0.60-1.30); DIRECT BILIRUBIN ADULT 0.4 MG/DL (0.0-0.2); HDL CHOLESTEROL 7.6 MG/DL (40.0-60.0); INDIRECT BILIRUBIN 0.3 MG/DL (0.0-0.8); RANDOM VANCOMYCIN 14.1 COMMENT; TOTAL BILIRUBIN ADULT 0.7 MG/DL (0.2-1.0); TOTAL PROTEIN 6.3 GM/DL (6.4-8.2)
[2017-11-11] MEDS: SODIUM CHLOR 0.9% 1000 ML INJ 1,000 ML IV SCH ×2 (06:36→15:47)
[2017-11-11] MEDS: MUPIROCIN 2% OINT 1 APPLIC/GM SYR NASAL SCH ×2 (08:19→21:42)
[2017-11-11] MEDS: DOCUSATE SODIUM 50 MG/SENNA 8.6 MG TAB PO SCH ×2 (08:19→21:00)
[2017-11-11] MEDS: SODIUM CHLORIDE 0.9% FLUSH 10 ML FLUSH IV FLUSH SCH ×2 (08:19→21:42)
[2017-11-11 09:29] LABS: HEPATITIS A AB IGM NEGATIVE (NEGATIVE); HEPATITIS B CORE AB IGM NEGATIVE (NEGATIVE)
--- NOTE | 2017-11-11 11:25 | PD.ID.CON ---
History of Present Illness Service ID Consult Requested By Reason for Consult Evaluation and Mment of Sepsis, Endocarditis. 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 Patient has expressive as well as possible receptive aphasia as a result of that. His mother reports he lives with her. He does go out of the home to meet friends. To the best of her knowledge he does not do drugs but she would not be surprised if he did. She reported he had complained of sweating and left side weakness with fever 103 F associated with chills. He denies any pain. He reports cough with phlegm. He denies any N/V or diarrhea. He was seen by Neuro and it appears he is non compliant with medications including aspirin prescribed last admission. Last admission patient was treated for endocarditis possibly per mother. Patient was sepsis and workup revealed Gram neg bacteremia and ID was consulted due to suspicion of endocarditis. 2D ECHO pending. Review of Systems ROS Limitations: Poor Historian Past Family Social History Allergies: Coded Allergies: No Known Allergies (Verified Allergy, Unknown, 11/10/17) Past Medical History History of CVA August 2017 h/o endocarditis in past. Past Surgical History None per patient and Mom. Reported Medications Reported Meds & Active Scripts Active Aspirin DR (Aspirin) 81 Mg Tabdr 162 Mg PO DAILY Active Ordered Medications Current Medications Medications (Trade) Dose Ordered Sig/Vikas Route Start Time Stop Time Status Last Admin Sodium Chloride 1,000 ml @ 100 mls/hr Q10H IV 11/10/17 14:07 11/12/17 16:38 (NS Flush) 2 ml UNSCH PRN IV FLUSH 11/10/17 14:15 (NS Flush) 2 ml BID IV FLUSH 11/10/17 21:00 11/12/17 16:37 (Heparin Inj) 5,000 units Q8H SQ 11/10/17 14:15 11/12/17 14:15 (Narcan Inj) 0.4 mg UNSCH PRN IV PUSH 11/10/17 14:15 (Arabella-Colace) 1 tab BID PO 11/10/17 21:00 11/12/17 09:00 (Milk Of Magnesia Liq) 30 ml Q12H PRN PO 11/10/17 14:15 (Senokot) 17.2 mg Q12H PRN PO 11/10/17 14:15 (Dulcolax Supp) 10 mg DAILY PRN RECTAL 11/10/17 14:15 (Lactulose Liq) 30 ml DAILY PRN PO 11/10/17 14:15 Cefepime HCl 2000 mg/Sodium Chloride 100 ml @ 200 mls/hr Q8H IV 11/10/17 14:15 11/12/17 14:15 (Bactroban Nasal 2% Oint) 1 applic BID NASAL 11/10/17 21:00 11/11/17 21:42 Vancomycin HCl 1250 mg/Sodium Chloride 262.5 ml @ 250 mls/hr Q18H IV 11/11/17 12:00 11/12/17 05:18 Miscellaneous Information SPECIFIC LAB TO BE DRAWN:VANCOMYCIN TROUGH DATE TO... ONCE ONCE .XX 11/12/17 23:45 11/12/17 23:46 Pharmacy Profile Note 0 ml @ 0 mls/hr UNSCH OTHER 11/11/17 15:30 Family History Review with the patient,not aware of significant medical history runs in his family Social History Patient quit drinking before his CVA in August, the not smoking, history of cocaine from previous record Physical Exam Vital Signs Vital Signs Date Time Temp Pulse Resp B/P (MAP) Pulse Ox O2 Delivery O2 Flow Rate FiO2 11/11/17 10:00 83 11/11/17 08:00 103 11/11/17 08:00 98.9 103 37 122/56 (78) 92 11/11/17 06:00 93 11/11/17 04:00 92 11/11/17 04:00 100.0 92 31 125/60 (81) 96 11/11/17 02:00 98 11/11/17 00:00 99.1 96 21 117/56 (76) 100 11/11/17 00:00 96 11/10/17 23:53 99 21 11/10/17 22:00 87 11/10/17 20:00 97.8 80 23 104/55 (71) 100 11/10/17 20:00 79 11/10/17 15:36 98.5 81 25 95/52 (66) 98 11/10/17 14:55 11/10/17 14:18 98.3 95 22 100/51 (67) 100 Room Air 11/10/17 13:17 99.1 11/10/17 13:00 102 31 105/52 (69) 99 Nasal Cannula 2.00 11/10/17 12:45 106 30 106/52 (70) 99 Nasal Cannula 2.00 Physical Exam GENERAL: This is a well-nourished, well-developed patient, in no apparent distress. SKIN: No rashes, ecchymoses or lesions. Cool and dry. HEAD: Atraumatic. Normocephalic. No temporal or scalp tenderness. EYES: Pupils equal round and reactive. Extraocular motions intact. No scleral icterus. No injection or drainage. ENT: Nose without bleeding, purulent drainage or septal hematoma. Throat without erythema, tonsillar hypertrophy or exudate. Uvula midline. Airway patent. NECK: Trachea midline. Supple, nontender, no meningeal signs. CARDIOVASCULAR: HS audible. RESPIRATORY: Clear to auscultation. Breath sounds equal bilaterally. No wheezes , rales, or rhonchi. GASTROINTESTINAL: Abdomen soft, non-tender, nondistended. MUSCULOSKELETAL: Extremities without clubbing, cyanosis, or edema. NEUROLOGICAL: Awake and alert. Cranial nerves II through XII intact. Expressive and receptive aphasia Psych cooperative IV line sites with no e.o infection. Laboratory Laboratory Tests Test 11/10/17 13:30 11/10/17 14:20 11/10/17 15:40 11/10/17 21:54 Lactic Acid Level 1.1 Urine Color DARK-YELLOW Urine Turbidity HAZY Urine pH 5.0 Urine Specific [place] 1.021 Urine Protein 30 Urine Glucose (UA) TRACE Urine Ketones NEG Urine Occult Blood SMALL Urine Nitrite NEG Urine Bilirubin NEG Urine Urobilinogen 2.0 Urine Leukocyte Esterase SMALL Urine RBC 8 Urine WBC 14 Urine Squamous Epithelial Cells <1 Urine Bacteria MOD Urine Hyaline Casts 7 Urine White Blood Cell Casts 7 Urine Mucus FEW Microscopic Urinalysis Comment CATH-CULTURE IND Nasal Screen MRSA (PCR) MRSA NOT DETECTED Blood Urea Nitrogen 53 Creatinine 2.20 Random Glucose 105 Calcium Level 7.9 Phosphorus Level 4.8 Magnesium Level 2.7 Sodium Level 139 Potassium Level 3.8 Chloride Level 108 Carbon Dioxide Level 21.1 Anion Gap 10 Estimat Glomerular Filtration Rate 32 Hepatitis A IgM Antibody NEGATIVE Hepatitis B Surface Antigen NEGATIVE Hepatitis B Core IgM Antibody NEGATIVE Hepatitis C Antibody NEGATIVE Test 11/11/17 05:12 White Blood Count 18.0 Red Blood Count 3.44 Hemoglobin 9.7 Hematocrit 28.4 Mean Corpuscular Volume 82.4 Mean Corpuscular Hemoglobin 28.1 Mean Corpuscular Hemoglobin Concent 34.1 Red Cell Distribution Width 16.0 Platelet Count 137 Mean Platelet Volume 9.1 Neutrophils (%) (Auto) 79.9 Lymphocytes (%) (Auto) 9.7 Monocytes (%) (Auto) 9.8 Eosinophils (%) (Auto) 0.2 Basophils (%) (Auto) 0.4 Neutrophils # (Auto) 14.4 Lymphocytes # (Auto) 1.7 Monocytes # (Auto) 1.8 Eosinophils # (Auto) 0.0 Basophils # (Auto) 0.1 CBC Comment DIFF FINAL Differential Comment Prothrombin Time 13.0 Prothromb Time International Ratio 1.3 Blood Urea Nitrogen 52 Creatinine 1.74 Random Glucose 99 Total Protein 6.3 Albumin 2.2 Calcium Level 7.7 Alkaline Phosphatase 129 Aspartate Amino Transf (AST/SGOT) 140 Alanine Aminotransferase (ALT/SGPT) 148 Total Bilirubin 0.7 Direct Bilirubin 0.4 Sodium Level 135 Potassium Level 3.6 Chloride Level 105 Carbon Dioxide Level 16.8 Anion Gap 13 Estimat Glomerular Filtration Rate 42 Lactic Acid Level 1.0 Indirect Bilirubin 0.3 Triglycerides Level 235 Cholesterol Level 108 LDL Cholesterol 53 HDL Cholesterol 7.6 Cholesterol/HDL Ratio 14.21 Lipase 176 Random Vancomycin Level 14.1 Date/Time Source Procedure Growth Status 11/10/17 10:55 Blood Peripheral Aerobic Blood Culture - Preliminary Gram Negative Davis Resulted 11/10/17 10:55 Anaerobic Blood Culture - Preliminary Gram Positive Cocci Resulted 11/10/17 11:15 Nasal Washing Influenza Types A,B Antigen (SERENITY) - Final NEGATIVE FOR FLU A AND B ANTIGEN.... Complete 11/10/17 14:20 Urine Catheterized Urine Urine Culture Pending Received Result Diagram: 11/11/17 0512 11/11/17 0512 Imaging Last Impressions Head CT 11/10/17 1036 Signed Impressions: Service Date/Time: Friday, November 10, 2017 12:16 - CONCLUSION: There is abnormal low density, likely representing cytotoxic edema, in the left frontal lobe. This very likely is related to a recent ischemic event. Reji Dasilva MD Chest X-Ray 11/10/17 1036 Signed Impressions: Service Date/Time: Friday, November 10, 2017 10:54 - CONCLUSION: No acute cardiopulmonary process. Kirby Trejo MD Liver Ultrasound 11/10/17 0000 Signed Impressions: Service Date/Time: Friday, November 10, 2017 14:47 - CONCLUSION: 1. Liver and spleen are both enlarged with multiple diffuse hepatic fatty infiltration. 2. Linear echogenic area within the lateral mid body of the spleen may represent a focal area of scarring. 3. Benign renal cortical cysts of the right kidney. 4. Small 3 mm gallbladder polyp. Gallbladder is otherwise sonographically normal. Kirby Trejo MD Brain MRI 11/10/17 0000 Signed Impressions: Service Date/Time: Friday, November 10, 2017 20:51 - CONCLUSION: The eighth of diminished attenuation involving the left frontoparietal junction on the patient's prior CT examination corresponds to acute infarction in addition to multiple other areas of new acute infarction bilaterally not present on the prior MRI dated 09/10/2017 and previously seen acute infarctions on the right side on that study have been evolved. Findings were discussed with the patient's nurse Chandan on 11/10/2017 9:19 PM. Fernanda Padilla MD Assessment and Plan Assessment and Plan Sepsis Endocarditis Gram negative bacteremia Cerebral stroke (multiple embolic episodes likely microabscesses) h/o cocaine abuse h/o stroke in Aug 2017. Recs Continue Cefepime IV Continue Vanco IV (target trough 15-20) Follow cultures Follow clinically Follow 2D ECHO Jacinda Brock MD Nov 11, 2017 11:25
[2017-11-11] MEDS: VANCOMYCIN INJ 1,250 MG in SODIUM CHLOR 0.9% 250 ML INJ 250 ML IV SCH (11:50)
--- NOTE | 2017-11-11 11:57 | HHI.PR ---
Subjective Remarks 52 years old male with H/O CVA last August presented to the ED with transitional change in mental status not being able to verbalize words patient seems to be able to understand words however he cannot answer verbally which is consistent with expressive aphasia he said he has been having sweating since last night started with a weakness on his left side, there was a fever of 103 with positive chills, patient denied any pain, he reported cough with no significant phlegm, he denied any diarrhea abdominal pain nausea vomiting or dysuria As mentioned above patient had multiple bilateral small ischemic stroke in August 2017 he was seen by neurologist and sent home on baby aspirin 2 tablets In the previous admission there was a concern for right heart endocarditis however NOHELIA did not reveal any vegetation 2-15 SEEN IN ICU QUITE APHASIC PASSED SWALLOW EVAL NEEDS ECHO- MAY NEED NOHELIA DW RN AND PT OK FOR OUT OF ICU Objective Vitals Vital Signs Date Time Temp Pulse Resp B/P (MAP) Pulse Ox O2 Delivery O2 Flow Rate FiO2 11/11/17 10:00 83 11/11/17 08:00 103 11/11/17 08:00 98.9 103 37 122/56 (78) 92 11/11/17 06:00 93 11/11/17 04:00 92 11/11/17 04:00 100.0 92 31 125/60 (81) 96 11/11/17 02:00 98 11/11/17 00:00 99.1 96 21 117/56 (76) 100 11/11/17 00:00 96 11/10/17 23:53 99 21 11/10/17 22:00 87 11/10/17 20:00 97.8 80 23 104/55 (71) 100 11/10/17 20:00 79 11/10/17 15:36 98.5 81 25 95/52 (66) 98 11/10/17 14:55 11/10/17 14:18 98.3 95 22 100/51 (67) 100 Room Air 11/10/17 13:17 99.1 11/10/17 13:00 102 31 105/52 (69) 99 Nasal Cannula 2.00 11/10/17 12:45 106 30 106/52 (70) 99 Nasal Cannula 2.00 I/O 11/10/17 11/10/17 11/10/17 11/11/17 11/11/17 11/11/17 07:00 15:00 23:00 07:00 15:00 23:00 Intake Total 1100 ml 4605.5 ml 2060 ml Output Total 100 ml 450 ml 1300 ml Balance 1000 ml 4155.5 ml 760 ml Intake Oral 0 ml 960 ml IV Total 1100 ml 4605.5 ml 1100 ml Output Urine Total 100 ml 450 ml 1300 ml # Voids 1 # Bowel Movements 1 Result Diagram: 11/11/17 0512 11/11/17 0512 Other Results Laboratory Tests Test 11/10/17 10:45 11/10/17 11:00 11/10/17 13:30 11/10/17 14:20 White Blood Count 20.8 TH/MM3 Red Blood Count 4.36 MIL/MM3 Hemoglobin 12.2 GM/DL Hematocrit 36.1 % Mean Corpuscular Volume 82.7 FL Mean Corpuscular Hemoglobin 28.1 PG Mean Corpuscular Hemoglobin Concent 33.9 % Red Cell Distribution Width 16.2 % Platelet Count 168 TH/MM3 Mean Platelet Volume 9.0 FL Neutrophils (%) (Auto) 95.6 % Lymphocytes (%) (Auto) 1.9 % Monocytes (%) (Auto) 2.3 % Eosinophils (%) (Auto) 0.0 % Basophils (%) (Auto) 0.2 % Neutrophils # (Auto) 19.8 TH/MM3 Lymphocytes # (Auto) 0.4 TH/MM3 Monocytes # (Auto) 0.5 TH/MM3 Eosinophils # (Auto) 0.0 TH/MM3 Basophils # (Auto) 0.0 TH/MM3 CBC Comment DIFF FINAL Differential Comment Blood Urea Nitrogen 49 MG/DL Creatinine 2.87 MG/DL Random Glucose 143 MG/DL Total Protein 8.5 GM/DL Albumin 2.9 GM/DL Calcium Level 8.7 MG/DL Alkaline Phosphatase 189 U/L Aspartate Amino Transf (AST/SGOT) 124 U/L Alanine Aminotransferase (ALT/SGPT) 98 U/L Total Bilirubin 0.9 MG/DL Sodium Level 130 MEQ/L Potassium Level 4.4 MEQ/L Chloride Level 98 MEQ/L Carbon Dioxide Level 16.6 MEQ/L Anion Gap 15 MEQ/L Estimat Glomerular Filtration Rate 23 ML/MIN Lactic Acid Level 2.9 mmol/L 1.1 mmol/L Urine Color DARK-YELLOW Urine Turbidity HAZY Urine pH 5.0 Urine Specific [place] 1.021 Urine Protein 30 mg/dL Urine Glucose (UA) TRACE mg/dL Urine Ketones NEG mg/dL Urine Occult Blood SMALL Urine Nitrite NEG Urine Bilirubin NEG Urine Urobilinogen 2.0 MG/DL Urine Leukocyte Esterase SMALL Urine RBC 8 /hpf Urine WBC 14 /hpf Urine Squamous Epithelial Cells <1 /hpf Urine Bacteria MOD /hpf Urine Hyaline Casts 7 /lpf Urine White Blood Cell Casts 7 /lpf Urine Mucus FEW /lpf Microscopic Urinalysis Comment CATH-CULTURE IND Test 11/10/17 15:40 11/10/17 21:54 11/11/17 05:12 Nasal Screen MRSA (PCR) MRSA NOT DETECTED Blood Urea Nitrogen 53 MG/DL 52 MG/DL Creatinine 2.20 MG/DL 1.74 MG/DL Random Glucose 105 MG/DL 99 MG/DL Calcium Level 7.9 MG/DL 7.7 MG/DL Phosphorus Level 4.8 MG/DL Magnesium Level 2.7 MG/DL Sodium Level 139 MEQ/L 135 MEQ/L Potassium Level 3.8 MEQ/L 3.6 MEQ/L Chloride Level 108 MEQ/L 105 MEQ/L Carbon Dioxide Level 21.1 MEQ/L 16.8 MEQ/L Anion Gap 10 MEQ/L 13 MEQ/L Estimat Glomerular Filtration Rate 32 ML/MIN 42 ML/MIN Hepatitis A IgM Antibody NEGATIVE Hepatitis B Surface Antigen NEGATIVE Hepatitis B Core IgM Antibody NEGATIVE Hepatitis C Antibody NEGATIVE White Blood Count 18.0 TH/MM3 Red Blood Count 3.44 MIL/MM3 Hemoglobin 9.7 GM/DL Hematocrit 28.4 % Mean Corpuscular Volume 82.4 FL Mean Corpuscular Hemoglobin 28.1 PG Mean Corpuscular Hemoglobin Concent 34.1 % Red Cell Distribution Width 16.0 % Platelet Count 137 TH/MM3 Mean Platelet Volume 9.1 FL Neutrophils (%) (Auto) 79.9 % Lymphocytes (%) (Auto) 9.7 % Monocytes (%) (Auto) 9.8 % Eosinophils (%) (Auto) 0.2 % Basophils (%) (Auto) 0.4 % Neutrophils # (Auto) 14.4 TH/MM3 Lymphocytes # (Auto) 1.7 TH/MM3 Monocytes # (Auto) 1.8 TH/MM3 Eosinophils # (Auto) 0.0 TH/MM3 Basophils # (Auto) 0.1 TH/MM3 CBC Comment DIFF FINAL Differential Comment Prothrombin Time 13.0 SEC Prothromb Time International Ratio 1.3 RATIO Total Protein 6.3 GM/DL Albumin 2.2 GM/DL Alkaline Phosphatase 129 U/L Aspartate Amino Transf (AST/SGOT) 140 U/L Alanine Aminotransferase (ALT/SGPT) 148 U/L Total Bilirubin 0.7 MG/DL Direct Bilirubin 0.4 MG/DL Lactic Acid Level 1.0 mmol/L Indirect Bilirubin 0.3 MG/DL Triglycerides Level 235 MG/DL Cholesterol Level 108 MG/DL LDL Cholesterol 53 MG/DL HDL Cholesterol 7.6 MG/DL Cholesterol/HDL Ratio 14.21 RATIO Lipase 176 U/L Random Vancomycin Level 14.1 COMMENT Imaging Last Impressions Head CT 11/10/17 1036 Signed Impressions: Service Date/Time: Friday, November 10, 2017 12:16 - CONCLUSION: There is abnormal low density, likely representing cytotoxic edema, in the left frontal lobe. This very likely is related to a recent ischemic event. Reji Dasilva MD Chest X-Ray 11/10/17 1036 Signed Impressions: Service Date/Time: Friday, November 10, 2017 10:54 - CONCLUSION: No acute cardiopulmonary process. Kirby Trejo MD Liver Ultrasound 11/10/17 0000 Signed Impressions: Service Date/Time: Friday, November 10, 2017 14:47 - CONCLUSION: 1. Liver and spleen are both enlarged with multiple diffuse hepatic fatty infiltration. 2. Linear echogenic area within the lateral mid body of the spleen may represent a focal area of scarring. 3. Benign renal cortical cysts of the right kidney. 4. Small 3 mm gallbladder polyp. Gallbladder is otherwise sonographically normal. Kirby Trejo MD Brain MRI 11/10/17 0000 Signed Impressions: Service Date/Time: Friday, November 10, 2017 20:51 - CONCLUSION: The eighth of diminished attenuation involving the left frontoparietal junction on the patient's prior CT examination corresponds to acute infarction in addition to multiple other areas of new acute infarction bilaterally not present on the prior MRI dated 09/10/2017 and previously seen acute infarctions on the right side on that study have been evolved. Findings were discussed with the patient's nurse Chandan on 11/10/2017 9:19 PM. Fernanda Padilla MD Objective Remarks GENERAL: Alert talkative and cooperative quite aphasic not able to get all questions answered SKIN: Warm and dry. HEAD: Atraumatic. Normocephalic. EYES: Pupils equal and round. No scleral icterus. No injection or drainage. Extraocular muscles intact ENT: No nasal bleeding or discharge. Mucous membranes pink and moist. Tongue is midline NECK: Trachea midline. No JVD. Supple CARDIOVASCULAR: Regular rate and rhythm. S1 and S2 no S3 or S4 RESPIRATORY: No accessory muscle use. Clear to auscultation. Breath sounds equal bilaterally. GASTROINTESTINAL: Abdomen soft, non-tender, nondistended. Hepatic and splenic margins not palpable. MUSCULOSKELETAL: Extremities without clubbing, cyanosis, or edema. No obvious deformities. NEUROLOGICAL: Awake and alert. No obvious cranial nerve deficits. Motor grossly within normal limits. Five out of 5 muscle strength in the arms and legs. Normal speech. But very Aphasic not getting correct words out PSYCHIATRIC: INAppropriate mood and affect; insight and judgment abnormal. Medications and IVs Current Medications Vancomycin HCl 1000 mg/Sodium Chloride 250 ml @ 250 mls/hr ONCE STAT IV Last administered on 11/10/17at 13:21; Start 11/10/17 at 10:36; Stop 11/10/17 at 11:35 ; Status DC Cefepime HCl 2000 mg/Sodium Chloride 100 ml @ 200 mls/hr ONCE STAT IV Last administered on 11/10/17at 11:18; Start 11/10/17 at 10:36; Stop 11/10/17 at 11:20 ; Status DC Sodium Chloride 1,000 ml @ 999 mls/hr BOLUS ONCE IV Last administered on 11/10at 11:20; Start 11/10/17 at 11:30; Stop 11/10/17 at 12:38; Status DC Acetaminophen (Tylenol Supp) 650 mg ONCE ONCE RECTAL Last administered on 11/10at 11:41; Start 11/10/17 at 11:30; Stop 11/10/17 at 11:31; Status DC Aspirin (Aspirin Supp) 300 mg ONCE ONCE RECTAL Last administered on 11/10/17at 13:21; Start 11/10/17 at 13:00; Stop 11/10/17 at 13:02; Status DC Sodium Chloride 1,000 ml @ 100 mls/hr Q10H IV Last administered on 11/11/17at 06:36; Start 11/10/17 at 14:07 Sodium Chloride (NS Flush) 2 ml UNSCH PRN IV FLUSH FLUSH AFTER USING IV ACCESS ; Start 11/10/17 at 14:15 Sodium Chloride (NS Flush) 2 ml BID IV FLUSH Last administered on 11/11/17at 08: 19; Start 11/10/17 at 21:00 Heparin Sodium (Porcine) (Heparin Inj) 5,000 units Q8H SQ Last administered on 11/11/17at 05:27; Start 11/10/17 at 14:15 Naloxone HCl (Narcan Inj) 0.4 mg UNSCH PRN IV PUSH SEE LABEL COMMENTS; Start at 14:15 Senna/Docusate Sodium (Arabella-Colace) 1 tab BID PO ; Start 11/10/17 at 21:00 Magnesium Hydroxide (Milk Of Magnesia Liq) 30 ml Q12H PRN PO Mild constipation ; Start 11/10/17 at 14:15 Sennosides (Senokot) 17.2 mg Q12H PRN PO Moderate constipation; Start 11/10/17 at 14:15 Bisacodyl (Dulcolax Supp) 10 mg DAILY PRN RECTAL SEVERE CONSITIPATION; Start at 14:15 Lactulose (Lactulose Liq) 30 ml DAILY PRN PO SEVERE CONSITIPATION; Start at 14:15 Sodium Chloride 1,000 ml @ 999 mls/hr BOLUS ONCE IV Last administered on 11/10at 16:40; Start 11/10/17 at 14:15; Stop 11/10/17 at 15:29; Status DC Sodium Chloride 1,000 ml @ 999 mls/hr BOLUS ONCE IV Last administered on 11/10at 17:40; Start 11/10/17 at 14:15; Stop 11/10/17 at 15:29; Status DC Sodium Chloride 1,000 ml @ 42 mls/hr [id number] IV ; Start 11/10/17 at 14:07; Stop 11/10/17 at 17:15; Status DC Sodium Chloride 1,000 ml @ 84 mls/hr [id number] IV ; Start 11/10/17 at 14:07; Stop 11/10/17 at 17:15; Status DC Sodium Chloride 1,000 ml @ 100 mls/hr Q10H IV ; Start 11/10/17 at 14:07; Stop 11/10/17 at 17:15; Status DC Sodium Chloride 1,000 ml @ 125 mls/hr Q8H IV ; Start 11/10/17 at 14:07; Stop at 17:16; Status DC Pharmacy Profile Note 0 ml @ 0 mls/hr UNSCH OTHER ; Start 11/10/17 at 14:15 Vancomycin HCl 1251 mg/Sodium Chloride 512.51 ml @ 250 mls/ hr Q12H IV ; Start 11/10/17 at 14:15; Status UNV Cefepime HCl 2000 mg/Sodium Chloride 100 ml @ 200 mls/hr Q8H IV Last administered on 11/11/17at 05:27; Start 11/10/17 at 14:15 Vancomycin HCl 750 mg/Sodium Chloride 257.5 ml @ 250 mls/hr ONCE ONCE IV Last administered on 11/10/17at 18:48; Start 11/10/17 at 16:00; Stop 11/10/17 at 17:01; Status DC Mupirocin (Bactroban Nasal 2% Oint) 1 applic BID NASAL Last administered on at 08:19; Start 11/10/17 at 21:00 Sodium Chloride 2,000 ml @ 999 mls/hr Q2H1M IV Last administered on 11/10/17at 17:45; Start 11/10/17 at 17:45; Stop 11/10/17 at 19:45; Status DC Vancomycin HCl 1250 mg/Sodium Chloride 262.5 ml @ 250 mls/hr Q18H IV ; Start at 12:00 Miscellaneous Information SPECIFIC LAB TO BE DRAWN:VANCOMYCIN TROUGH DATE TO... ONCE ONCE .XX ; Start 11/12/17 at 23:45; Stop 11/12/17 at 23:46 A/P Assessment and Plan 52 years old male with history of cocaine abuse and recent CVA presented with Disorientation/expressive aphasia due to left frontoparietal ischemic stroke shown on MRI of the brain History of recent bilateral parietal ischemia in August 2017, with concern at that time for right heart with endocarditis/bacteremia Suspect sepsis with febrile illness 103, tachycardia hypotension, leukocytosis with bandemia and left shift, lactic acidosis>> still unknown source of infection, chest x-ray unremarkable, awaiting UA-possibly mildly positive Lactic acidosis Dehydration improving with fluids REGIS on possible CKD improving with fluids Increased transaminases with alk phos seems to be chronic from previous admission Acute non-anion gap metabolic acidosis DVT prophylaxis Plan: Admit to ICU with close monitoring under telemetry--can be transferred out of ICU bed is available MRI/MRA, ultrasound of the carotid, 2D echo has been ordered CT and MRI of the head personally reviewed by me Started on broad-spectrum antibiotics cefepime and Vanco Consult neurology Aggressive hydration with normal saline Strict I AND OS Monitor BMP, lactic acid Liver ultrasound with hepatitis panel ID consultation in light of previous suspicion for bacteremia and right heart endocarditis AM LABS PT AND OT AND ST Discharge Planning PENDING COMPLETE ID WORK UP Ramakrishna Borrego DO Nov 11, 2017 11:57
[2017-11-11] MEDS ORDERED: Vancomycin Consult Pharmacy 1 EA OTHER SCH (15:30)
[2017-11-12] VITALS (10 sets, daily range): BP systolic 115–131; BP diastolic 52–59; PULSE 86–99; RESP 17–18; TEMP 98.3–99.9; O2SAT 96–99
[2017-11-12] MEDS: VANCOMYCIN INJ 1,250 MG in SODIUM CHLOR 0.9% 250 ML INJ 250 ML IV SCH (05:18)
[2017-11-12] MEDS: HEPARIN SODIUM - SQ 10,000 UNITS/ML VIAL SQ SCH ×3 (05:18→22:17)
[2017-11-12] MEDS: CEFEPIME INJ 2,000 MG in SODIUM CHLORIDE 0.9% INJ 100 ML IV SCH ×3 (05:18→22:16)
[2017-11-12] MEDS: SODIUM CHLOR 0.9% 1000 ML INJ 1,000 ML IV SCH ×2 (05:22→16:38)
[2017-11-12 06:01] LABS: ALKALINE PHOSPHATASE 109 U/L (45-117); ALT (GPT) 97 U/L (12-78); AST (GOT) 57 U/L (15-37); BICARBONATE 19.4 MEQ/L (21.0-32.0); BLOOD UREA NITROGEN 27 MG/DL (7-18); CALCIUM 7.9 MG/DL (8.5-10.1); CHLORIDE 109 MEQ/L (98-107); CREATININE 0.97 MG/DL (0.60-1.30); FREE T4 2.23 NG/DL (0.76-1.46); GLOMERULAR FILTRATION RATE 82 ML/MIN (>89); GLUCOSE,RANDOM 111 MG/DL (74-106); MAGNESIUM 2.2 MG/DL (1.5-2.5); PHOSPHORUS 2.8 MG/DL (2.5-4.9); SODIUM (NA) 137 MEQ/L (136-145); TOTAL BILIRUBIN ADULT 0.5 MG/DL (0.2-1.0); TOTAL PROTEIN 6.1 GM/DL (6.4-8.2)
--- NOTE | 2017-11-12 06:54 | HHI.PR ---
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 call prn Subjective Subjective Comments No acute events reported No headache Active Medications Current Medications Medications (Trade) Dose Ordered Sig/Vikas Route Start Time Stop Time Status Last Admin Sodium Chloride 1,000 ml @ 100 mls/hr Q10H IV 11/10/17 14:07 11/12/17 05:22 (NS Flush) 2 ml UNSCH PRN IV FLUSH 11/10/17 14:15 (NS Flush) 2 ml BID IV FLUSH 11/10/17 21:00 11/11/17 21:42 (Heparin Inj) 5,000 units Q8H SQ 11/10/17 14:15 11/12/17 05:18 (Narcan Inj) 0.4 mg UNSCH PRN IV PUSH 11/10/17 14:15 (Arabella-Colace) 1 tab BID PO 11/10/17 21:00 (Milk Of Magnesia Liq) 30 ml Q12H PRN PO 11/10/17 14:15 (Senokot) 17.2 mg Q12H PRN PO 11/10/17 14:15 (Dulcolax Supp) 10 mg DAILY PRN RECTAL 11/10/17 14:15 (Lactulose Liq) 30 ml DAILY PRN PO 11/10/17 14:15 Cefepime HCl 2000 mg/Sodium Chloride 100 ml @ 200 mls/hr Q8H IV 11/10/17 14:15 11/12/17 05:18 (Bactroban Nasal 2% Oint) 1 applic BID NASAL 11/10/17 21:00 11/11/17 21:42 Vancomycin HCl 1250 mg/Sodium Chloride 262.5 ml @ 250 mls/hr Q18H IV 11/11/17 12:00 11/12/17 05:18 Miscellaneous Information SPECIFIC LAB TO BE DRAWN:VANCOMYCIN TROUGH DATE TO... ONCE ONCE .XX 11/12/17 23:45 11/12/17 23:46 Pharmacy Profile Note 0 ml @ 0 mls/hr UNSCH OTHER 11/11/17 15:30 Allergies Allergies Coded Allergies No Known Allergies (Verified Allergy, Unknown, 11/10/17) Exam I&O / VS Vital Signs Date Time Temp Pulse Resp B/P (MAP) Pulse Ox O2 Delivery O2 Flow Rate FiO2 11/12/17 05:40 95 11/12/17 03:10 99.9 94 17 115/56 (75) 96 11/12/17 01:50 96 11/12/17 00:20 98.7 88 18 125/57 (79) 97 11/11/17 23:15 100 11/11/17 20:00 99.5 91 28 119/58 (78) 97 11/11/17 20:00 91 11/11/17 18:00 89 11/11/17 16:00 99.0 85 27 123/60 (81) 96 11/11/17 16:00 85 11/11/17 14:00 88 11/11/17 12:00 98.8 84 31 119/56 (77) 100 11/11/17 12:00 84 11/11/17 10:00 83 11/11/17 08:00 103 11/11/17 08:00 98.9 103 37 122/56 (78) 92 Objective Radiology Results Last [address] 11/10/17 1036 Signed Impressions: Service Date/Time: Friday, November 10, 2017 12:16 - CONCLUSION: There is abnormal low density, likely representing cytotoxic edema, in the left frontal lobe. This very likely is related to a recent ischemic event. Reji Dasilva MD Chest X-Ray 11/10/17 1036 Signed Impressions: Service Date/Time: Friday, November 10, 2017 10:54 - CONCLUSION: No acute cardiopulmonary process. Kirby Trejo MD Micro and Labs Laboratory Tests Test 11/12/17 04:55 Blood Urea Nitrogen 27 Creatinine 0.97 Random Glucose 111 Total Protein 6.1 Albumin 2.0 Calcium Level 7.9 Phosphorus Level 2.8 Magnesium Level 2.2 Alkaline Phosphatase 109 Aspartate Amino Transf (AST/SGOT) 57 Alanine Aminotransferase (ALT/SGPT) 97 Total Bilirubin 0.5 Sodium Level 137 Potassium Level 3.6 Chloride Level 109 Carbon Dioxide Level 19.4 Anion Gap 9 Estimat Glomerular Filtration Rate 82 Free Thyroxine 2.23 Thyroid Stimulating Hormone 3rd Gen 1.760 Date/Time Source Procedure Growth Status 11/11/17 16:26 Blood Peripheral Aerobic Blood Culture Pending Received 11/11/17 16:26 Blood Peripheral Anaerobic Blood Culture Pending Received 11/10/17 11:15 Nasal Washing Influenza Types A,B Antigen (SERENITY) - Final NEGATIVE FOR FLU A AND B ANTIGEN.... Complete 11/10/17 14:20 Urine Catheterized Urine Urine Culture - Preliminary NO GROWTH IN 24 HOURS. Resulted Boom Shrestha MD Nov 12, 2017 06:54
[2017-11-12 07:34] LABS: AUTOMATED NEUTROPHIL # 10.9 TH/MM3 (1.8-7.7); BASOPHIL # 0.1 TH/MM3 (0-0.2); BASOPHIL % 0.9 % (0.0-2.0); EOSINOPHIL # 0.1 TH/MM3 (0-0.4); EOSINOPHIL % 0.5 % (0.0-4.0); HEMATOCRIT 26.9 % (39.0-51.0); HEMOGLOBIN 9.2 GM/DL (13.0-17.0); LYMPH % 12.9 % (9.0-44.0); LYMPHOCYTE # 1.9 TH/MM3 (1.0-4.8); MEAN CELL VOLUME 82.3 FL (80.0-100.0); MEAN CORPUSCULAR HEMOGLOBIN 28.1 PG (27.0-34.0); MEAN CORPUSCULAR HGB CONC 34.1 % (32.0-36.0); MEAN PLATELET VOLUME 9.5 FL (7.0-11.0); MONO % 11.9 % (0.0-8.0); MONOCYTE # 1.8 TH/MM3 (0-0.9); NEUT % 73.8 % (16.0-70.0); PLATELET COUNT 200 TH/MM3 (150-450); RED BLOOD COUNT 3.27 MIL/MM3 (4.50-5.90); RED CELL DISTRIBUTION WIDTH 16.2 % (11.6-17.2); WHITE BLOOD COUNT 14.8 TH/MM3 (4.0-11.0)
[2017-11-12] MEDS: MUPIROCIN 2% OINT 1 APPLIC/GM SYR NASAL SCH ×2 (09:00→19:46)
[2017-11-12] MEDS: DOCUSATE SODIUM 50 MG/SENNA 8.6 MG TAB PO SCH ×2 (09:00→19:46)
--- NOTE | 2017-11-12 09:20 | ECHRPT ---
Indication: Acute and subacute infective endocarditis CONCLUSIONS echodensity imaged on aortic valve @ 5 mm in diameter, image quality limits further qualitative desc ription Ef @ 50-55% The aortic root and proximal ascending aorta are not well visualized. mild mitral valve regurgitation. Aortic valve sclerosis is present. There is trace tricuspid valve regurgitation. The pulmonary valve is not well visualized. BP: / HR: Rhythm: MEASUREMENTS (Male / Female) Normal Values Technical Quality:Fair 2D ECHO LV Diastolic Diameter PLAX 6.2 cm 4.2 - 5.9 / 3.9 - 5.3 cm LV Systolic Diameter PLAX 4.6 cm IVS Diastolic Thickness 0.9 cm 0.6 - 1.0 / 0.6 - 0.9 cm LVPW Diastolic Thickness 1.0 cm 0.6 - 1.0 / 0.6 - 0.9 cm LV Relative Wall Thickness 0.3 RV Internal Dim ED PLAX 1.7 cm M-MODE Aortic Root Diameter MM 4.0 cm LA Systolic Diameter MM 3.2 cm LA Ao Ratio MM 0.8 AV Cusp Separation MM 2.0 cm DOPPLER MV Peak Velocity 133.0 cm/s MV Peak Gradient 7.1 mmHg MV Mean Velocity 92.3 cm/s MV Mean Gradient 4.0 mmHg FINDINGS LEFT VENTRICLE Normal left ventricular size and wall thickness. The left ventricular systolic function is normal wi th an estimated ejection fraction in the range of 60-65%. Left ventricular diastolic function parameters a re normal. RIGHT VENTRICLE Normal right ventricular size and systolic function. LEFT ATRIUM The left atrial size is normal. RIGHT ATRIUM The right atrial size is normal. ATRIAL SEPTUM Normal atrial septal thickness without atrial level shunting by limited color doppler interrogation. AORTA The aortic root and proximal ascending aorta are not well visualized. MITRAL VALVE Structurally normal mitral valve. Trace mitral valve regurgitation. AORTIC VALVE Aortic valve sclerosis is present. TRICUSPID VALVE There is trace tricuspid valve regurgitation. PULMONARY VALVE The pulmonary valve is not well visualized. Artemio Palm MD, FACC, FSCAI (Electronically Signed) Final Date:12 November 2017 09:20
--- NOTE | 2017-11-12 09:34 | HHI.PR ---
Subjective Remarks 52 years old male with H/O CVA last August presented to the ED with transitional change in mental status not being able to verbalize words patient seems to be able to understand words however he cannot answer verbally which is consistent with expressive aphasia he said he has been having sweating since last night started with a weakness on his left side, there was a fever of 103 with positive chills, patient denied any pain, he reported cough with no significant phlegm, he denied any diarrhea abdominal pain nausea vomiting or dysuria As mentioned above patient had multiple bilateral small ischemic stroke in August 2017 he was seen by neurologist and sent home on baby aspirin 2 tablets In the previous admission there was a concern for right heart endocarditis however NOHELIA did not reveal any vegetation 2-15 SEEN IN ICU QUITE APHASIC PASSED SWALLOW EVAL NEEDS ECHO- MAY NEED NOHELIA DW RN AND PT OK FOR OUT OF ICU 2-16 PATIENT HAD ECHO WILL GET A NOHELIA DUE TO ABNORMAL VALVE NO NEW COMPLAINTS DW RN AND PT INCREASE ACTIVITY Objective Vitals Vital Signs Date Time Temp Pulse Resp B/P (MAP) Pulse Ox O2 Delivery O2 Flow Rate FiO2 11/12/17 08:00 98.3 88 18 118/52 (74) 98 11/12/17 05:40 95 11/12/17 03:10 99.9 94 17 115/56 (75) 96 11/12/17 01:50 96 11/12/17 00:20 98.7 88 18 125/57 (79) 97 11/11/17 23:15 100 11/11/17 20:00 99.5 91 28 119/58 (78) 97 11/11/17 20:00 91 11/11/17 18:00 89 11/11/17 16:00 99.0 85 27 123/60 (81) 96 11/11/17 16:00 85 11/11/17 14:00 88 11/11/17 12:00 98.8 84 31 119/56 (77) 100 11/11/17 12:00 84 11/11/17 10:00 83 I/O 11/11/17 11/11/17 11/11/17 11/12/17 11/12/17 11/12/17 07:00 15:00 23:00 07:00 15:00 23:00 Intake Total 2060 ml 842.5 ml 1530 ml 1340 ml Output Total 1300 ml 875 ml 925 ml 400 ml Balance 760 ml -32.5 ml 605 ml 940 ml Intake Oral 960 ml 480 ml 480 ml 240 ml IV Total 1100 ml 362.5 ml 1050 ml 1100 ml Output Urine Total 1300 ml 875 ml 925 ml 400 ml # Voids 2 # Bowel Movements 1 1 0 Result Diagram: 11/12/17 0455 11/12/17 0455 Other Results Laboratory Tests Test 11/10/17 10:45 11/10/17 11:00 11/10/17 13:30 11/10/17 14:20 White Blood Count 20.8 TH/MM3 Red Blood Count 4.36 MIL/MM3 Hemoglobin 12.2 GM/DL Hematocrit 36.1 % Mean Corpuscular Volume 82.7 FL Mean Corpuscular Hemoglobin 28.1 PG Mean Corpuscular Hemoglobin Concent 33.9 % Red Cell Distribution Width 16.2 % Platelet Count 168 TH/MM3 Mean Platelet Volume 9.0 FL Neutrophils (%) (Auto) 95.6 % Lymphocytes (%) (Auto) 1.9 % Monocytes (%) (Auto) 2.3 % Eosinophils (%) (Auto) 0.0 % Basophils (%) (Auto) 0.2 % Neutrophils # (Auto) 19.8 TH/MM3 Lymphocytes # (Auto) 0.4 TH/MM3 Monocytes # (Auto) 0.5 TH/MM3 Eosinophils # (Auto) 0.0 TH/MM3 Basophils # (Auto) 0.0 TH/MM3 CBC Comment DIFF FINAL Differential Comment Blood Urea Nitrogen 49 MG/DL Creatinine 2.87 MG/DL Random Glucose 143 MG/DL Total Protein 8.5 GM/DL Albumin 2.9 GM/DL Calcium Level 8.7 MG/DL Alkaline Phosphatase 189 U/L Aspartate Amino Transf (AST/SGOT) 124 U/L Alanine Aminotransferase (ALT/SGPT) 98 U/L Total Bilirubin 0.9 MG/DL Sodium Level 130 MEQ/L Potassium Level 4.4 MEQ/L Chloride Level 98 MEQ/L Carbon Dioxide Level 16.6 MEQ/L Anion Gap 15 MEQ/L Estimat Glomerular Filtration Rate 23 ML/MIN Lactic Acid Level 2.9 mmol/L 1.1 mmol/L Urine Color DARK-YELLOW Urine Turbidity HAZY Urine pH 5.0 Urine Specific [place] 1.021 Urine Protein 30 mg/dL Urine Glucose (UA) TRACE mg/dL Urine Ketones NEG mg/dL Urine Occult Blood SMALL Urine Nitrite NEG Urine Bilirubin NEG Urine Urobilinogen 2.0 MG/DL Urine Leukocyte Esterase SMALL Urine RBC 8 /hpf Urine WBC 14 /hpf Urine Squamous Epithelial Cells <1 /hpf Urine Bacteria MOD /hpf Urine Hyaline Casts 7 /lpf Urine White Blood Cell Casts 7 /lpf Urine Mucus FEW /lpf Microscopic Urinalysis Comment CATH-CULTURE IND Test 11/10/17 15:40 11/10/17 21:54 11/11/17 05:12 11/12/17 04:55 Nasal Screen MRSA (PCR) MRSA NOT DETECTED Blood Urea Nitrogen 53 MG/DL 52 MG/DL 27 MG/DL Creatinine 2.20 MG/DL 1.74 MG/DL 0.97 MG/DL Random Glucose 105 MG/DL 99 MG/DL 111 MG/DL Calcium Level 7.9 MG/DL 7.7 MG/DL 7.9 MG/DL Phosphorus Level 4.8 MG/DL 2.8 MG/DL Magnesium Level 2.7 MG/DL 2.2 MG/DL Sodium Level 139 MEQ/L 135 MEQ/L 137 MEQ/L Potassium Level 3.8 MEQ/L 3.6 MEQ/L 3.6 MEQ/L Chloride Level 108 MEQ/L 105 MEQ/L 109 MEQ/L Carbon Dioxide Level 21.1 MEQ/L 16.8 MEQ/L 19.4 MEQ/L Anion Gap 10 MEQ/L 13 MEQ/L 9 MEQ/L Estimat Glomerular Filtration Rate 32 ML/MIN 42 ML/MIN 82 ML/MIN Hepatitis A IgM Antibody NEGATIVE Hepatitis B Surface Antigen NEGATIVE Hepatitis B Core IgM Antibody NEGATIVE Hepatitis C Antibody NEGATIVE White Blood Count 18.0 TH/MM3 14.8 TH/MM3 Red Blood Count 3.44 MIL/MM3 3.27 MIL/MM3 Hemoglobin 9.7 GM/DL 9.2 GM/DL Hematocrit 28.4 % 26.9 % Mean Corpuscular Volume 82.4 FL 82.3 FL Mean Corpuscular Hemoglobin 28.1 PG 28.1 PG Mean Corpuscular Hemoglobin Concent 34.1 % 34.1 % Red Cell Distribution Width 16.0 % 16.2 % Platelet Count 137 TH/MM3 200 TH/MM3 Mean Platelet Volume 9.1 FL 9.5 FL Neutrophils (%) (Auto) 79.9 % 73.8 % Lymphocytes (%) (Auto) 9.7 % 12.9 % Monocytes (%) (Auto) 9.8 % 11.9 % Eosinophils (%) (Auto) 0.2 % 0.5 % Basophils (%) (Auto) 0.4 % 0.9 % Neutrophils # (Auto) 14.4 TH/MM3 10.9 TH/MM3 Lymphocytes # (Auto) 1.7 TH/MM3 1.9 TH/MM3 Monocytes # (Auto) 1.8 TH/MM3 1.8 TH/MM3 Eosinophils # (Auto) 0.0 TH/MM3 0.1 TH/MM3 Basophils # (Auto) 0.1 TH/MM3 0.1 TH/MM3 CBC Comment DIFF FINAL DIFF FINAL Differential Comment Prothrombin Time 13.0 SEC Prothromb Time International Ratio 1.3 RATIO Total Protein 6.3 GM/DL 6.1 GM/DL Albumin 2.2 GM/DL 2.0 GM/DL Alkaline Phosphatase 129 U/L 109 U/L Aspartate Amino Transf (AST/SGOT) 140 U/L 57 U/L Alanine Aminotransferase (ALT/SGPT) 148 U/L 97 U/L Total Bilirubin 0.7 MG/DL 0.5 MG/DL Direct Bilirubin 0.4 MG/DL Lactic Acid Level 1.0 mmol/L Indirect Bilirubin 0.3 MG/DL Triglycerides Level 235 MG/DL Cholesterol Level 108 MG/DL LDL Cholesterol 53 MG/DL HDL Cholesterol 7.6 MG/DL Cholesterol/HDL Ratio 14.21 RATIO Lipase 176 U/L Random Vancomycin Level 14.1 COMMENT Free Thyroxine 2.23 NG/DL Thyroid Stimulating Hormone 3rd Gen 1.760 uIU/ML Imaging Last Impressions Head CT 11/10/17 1036 Signed Impressions: Service Date/Time: Friday, November 10, 2017 12:16 - CONCLUSION: There is abnormal low density, likely representing cytotoxic edema, in the left frontal lobe. This very likely is related to a recent ischemic event. Reji Dasilva MD Chest X-Ray 11/10/17 1036 Signed Impressions: Service Date/Time: Friday, November 10, 2017 10:54 - CONCLUSION: No acute cardiopulmonary process. Kirby Trejo MD Liver Ultrasound 11/10/17 0000 Signed Impressions: Service Date/Time: Friday, November 10, 2017 14:47 - CONCLUSION: 1. Liver and spleen are both enlarged with multiple diffuse hepatic fatty infiltration. 2. Linear echogenic area within the lateral mid body of the spleen may represent a focal area of scarring. 3. Benign renal cortical cysts of the right kidney. 4. Small 3 mm gallbladder polyp. Gallbladder is otherwise sonographically normal. Kirby Trejo MD Brain MRI 11/10/17 0000 Signed Impressions: Service Date/Time: Friday, November 10, 2017 20:51 - CONCLUSION: The eighth of diminished attenuation involving the left frontoparietal junction on the patient's prior CT examination corresponds to acute infarction in addition to multiple other areas of new acute infarction bilaterally not present on the prior MRI dated 09/10/2017 and previously seen acute infarctions on the right side on that study have been evolved. Findings were discussed with the patient's nurse Chandan on 11/10/2017 9:19 PM. Fernanda Padilla MD Objective Remarks GENERAL: Alert talkative and cooperative quite aphasic not able to get all questions answered SKIN: Warm and dry. HEAD: Atraumatic. Normocephalic. EYES: Pupils equal and round. No scleral icterus. No injection or drainage. Extraocular muscles intact ENT: No nasal bleeding or discharge. Mucous membranes pink and moist. Tongue is midline NECK: Trachea midline. No JVD. Supple CARDIOVASCULAR: Regular rate and rhythm. S1 and S2 no S3 or S4 RESPIRATORY: No accessory muscle use. Clear to auscultation. Breath sounds equal bilaterally. GASTROINTESTINAL: Abdomen soft, non-tender, nondistended. Hepatic and splenic margins not palpable. MUSCULOSKELETAL: Extremities without clubbing, cyanosis, or edema. No obvious deformities. NEUROLOGICAL: Awake and alert. No obvious cranial nerve deficits. Motor grossly within normal limits. Five out of 5 muscle strength in the arms and legs. Normal speech. But very Aphasic not getting correct words out PSYCHIATRIC: INAppropriate mood and affect; insight and judgment abnormal. Medications and IVs Current Medications Vancomycin HCl 1000 mg/Sodium Chloride 250 ml @ 250 mls/hr ONCE STAT IV Last administered on 11/10/17at 13:21; Start 11/10/17 at 10:36; Stop 11/10/17 at 11:35 ; Status DC Cefepime HCl 2000 mg/Sodium Chloride 100 ml @ 200 mls/hr ONCE STAT IV Last administered on 11/10/17at 11:18; Start 11/10/17 at 10:36; Stop 11/10/17 at 11:20 ; Status DC Sodium Chloride 1,000 ml @ 999 mls/hr BOLUS ONCE IV Last administered on 11/10at 11:20; Start 11/10/17 at 11:30; Stop 11/10/17 at 12:38; Status DC Acetaminophen (Tylenol Supp) 650 mg ONCE ONCE RECTAL Last administered on 11/10at 11:41; Start 11/10/17 at 11:30; Stop 11/10/17 at 11:31; Status DC Aspirin (Aspirin Supp) 300 mg ONCE ONCE RECTAL Last administered on 11/10/17at 13:21; Start 11/10/17 at 13:00; Stop 11/10/17 at 13:02; Status DC Sodium Chloride 1,000 ml @ 100 mls/hr Q10H IV Last administered on 11/12/17at 05:22; Start 11/10/17 at 14:07 Sodium Chloride (NS Flush) 2 ml UNSCH PRN IV FLUSH FLUSH AFTER USING IV ACCESS ; Start 11/10/17 at 14:15 Sodium Chloride (NS Flush) 2 ml BID IV FLUSH Last administered on 11/11/17at 21: 42; Start 11/10/17 at 21:00 Heparin Sodium (Porcine) (Heparin Inj) 5,000 units Q8H SQ Last administered on 11/12/17at 05:18; Start 11/10/17 at 14:15 Naloxone HCl (Narcan Inj) 0.4 mg UNSCH PRN IV PUSH SEE LABEL COMMENTS; Start at 14:15 Senna/Docusate Sodium (Arabella-Colace) 1 tab BID PO ; Start 11/10/17 at 21:00 Magnesium Hydroxide (Milk Of Magnesia Liq) 30 ml Q12H PRN PO Mild constipation ; Start 11/10/17 at 14:15 Sennosides (Senokot) 17.2 mg Q12H PRN PO Moderate constipation; Start 11/10/17 at 14:15 Bisacodyl (Dulcolax Supp) 10 mg DAILY PRN RECTAL SEVERE CONSITIPATION; Start at 14:15 Lactulose (Lactulose Liq) 30 ml DAILY PRN PO SEVERE CONSITIPATION; Start at 14:15 Sodium Chloride 1,000 ml @ 999 mls/hr BOLUS ONCE IV Last administered on 11/10at 16:40; Start 11/10/17 at 14:15; Stop 11/10/17 at 15:29; Status DC Sodium Chloride 1,000 ml @ 999 mls/hr BOLUS ONCE IV Last administered on 11/10at 17:40; Start 11/10/17 at 14:15; Stop 11/10/17 at 15:29; Status DC Sodium Chloride 1,000 ml @ 42 mls/hr [id number] IV ; Start 11/10/17 at 14:07; Stop 11/10/17 at 17:15; Status DC Sodium Chloride 1,000 ml @ 84 mls/hr [id number] IV ; Start 11/10/17 at 14:07; Stop 11/10/17 at 17:15; Status DC Sodium Chloride 1,000 ml @ 100 mls/hr Q10H IV ; Start 11/10/17 at 14:07; Stop 11/10/17 at 17:15; Status DC Sodium Chloride 1,000 ml @ 125 mls/hr Q8H IV ; Start 11/10/17 at 14:07; Stop at 17:16; Status DC Pharmacy Profile Note 0 ml @ 0 mls/hr UNSCH OTHER ; Start 11/10/17 at 14:15; Status Cancel Vancomycin HCl 1251 mg/Sodium Chloride 512.51 ml @ 250 mls/ hr Q12H IV ; Start 11/10/17 at 14:15; Status UNV Cefepime HCl 2000 mg/Sodium Chloride 100 ml @ 200 mls/hr Q8H IV Last administered on 11/12/17at 05:18; Start 11/10/17 at 14:15 Vancomycin HCl 750 mg/Sodium Chloride 257.5 ml @ 250 mls/hr ONCE ONCE IV Last administered on 11/10/17at 18:48; Start 11/10/17 at 16:00; Stop 11/10/17 at 17:01; Status DC Mupirocin (Bactroban Nasal 2% Oint) 1 applic BID NASAL Last administered on at 21:42; Start 11/10/17 at 21:00 Sodium Chloride 2,000 ml @ 999 mls/hr Q2H1M IV Last administered on 11/10/17at 17:45; Start 11/10/17 at 17:45; Stop 11/10/17 at 19:45; Status DC Vancomycin HCl 1250 mg/Sodium Chloride 262.5 ml @ 250 mls/hr Q18H IV Last administered on 11/12/17at 05:18; Start 11/11/17 at 12:00 Miscellaneous Information SPECIFIC LAB TO BE DRAWN:VANCOMYCIN TROUGH DATE TO... ONCE ONCE .XX ; Start 11/12/17 at 23:45; Stop 11/12/17 at 23:46 Pharmacy Profile Note 0 ml @ 0 mls/hr UNSCH OTHER ; Start 11/11/17 at 15:30 A/P Assessment and Plan 52 years old male with history of cocaine abuse and recent CVA presented with Disorientation/expressive aphasia due to left frontoparietal ischemic stroke shown on MRI of the brain History of recent bilateral parietal ischemia in August 2017, with concern at that time for right heart with endocarditis/bacteremia Suspect sepsis with febrile illness 103, tachycardia hypotension, leukocytosis with bandemia and left shift, lactic acidosis>> still unknown source of infection, chest x-ray unremarkable, awaiting UA-possibly mildly positive Lactic acidosis Dehydration improving with fluids REGIS on possible CKD improving with fluids Increased transaminases with alk phos seems to be chronic from previous admission Acute non-anion gap metabolic acidosis DVT prophylaxis Plan: Admit to ICU with close monitoring under telemetry--can be transferred out of ICU bed is available MRI/MRA, ultrasound of the carotid, 2D echo has been DONE CT and MRI of the head personally reviewed by me Started on broad-spectrum antibiotics cefepime and Vanco Consult neurology Aggressive hydration with normal saline Strict I AND OS Monitor BMP, lactic acid Liver ultrasound with hepatitis panel ID consultation in light of previous suspicion for bacteremia and right heart endocarditis AM LABS PT AND OT AND ST ECHO ABNORMAL NEEDS NOHELIA Discharge Planning PENDING COMPLETE ID WORK UP Ramakrishna Borrego DO Nov 12, 2017 09:34
--- NOTE | 2017-11-12 15:31 | MB ---
cc: MIRANDA DIOP DATE OF CONSULTATION 11/12/2017 HISTORY OF PRESENT ILLNESS Mr. Holcomb is a 52-year-old white male with a history of stroke last August who presented with change in mental status, unable to verbalize and understand words, diaphoresis, left-sided weakness and fever. He has not had any chest pain or shortness of breath, dizziness, lightheadedness, palpitations or peripheral edema. He has a history of bilateral ischemic strokes in August 2017. Previous NOHELIA did not reveal any vegetations. His current echocardiogram is consistent with aortic valve vegetation. PAST MEDICAL HISTORY Positive for previous stroke as above. No history of hypertension, diabetes mellitus, coronary artery disease. MEDICATIONS None. ALLERGIES None. SOCIAL HISTORY The patient does not smoke. He quit drinking last year. He has a previous history of cocaine use. FAMILY HISTORY Negative for heart disease. REVIEW OF SYSTEMS Otherwise negative. PHYSICAL EXAMINATION VITAL SIGNS: Blood pressure 120/55, pulse 86 and regular. HEENT: Negative. NECK: 2+ carotid upstrokes. No bruits. LUNGS: Clear. HEART: Regular with no murmur, gallop or rub. ABDOMEN: Soft. No bruits. EXTREMITIES: Without edema. 2+ distal pulses. NEUROLOGIC: Grossly nonfocal. ECHOCARDIOGRAM Echocardiogram showed 5 mm aortic valve echodensity consistent with aortic valve vegetations. LV fx was preserved with ejection fraction of 50-55%. There was aortic valve sclerosis, trace tricuspid regurgitation and mild mitral valve regurgitation. LABORATORY Hemoglobin 9.2. Potassium 3.6. Creatinine 2.2, 1.7, and 1.0. AST 140 and 57, ALT 148 and 97. TSH 1.8. DIAGNOSIS 1. Aortic valve endocarditis. 2. New CVA (left frontal infarct). 3. History of IV drug use. 4. History of noncompliance with medical care. DISPOSITION Mr. Holcomb is diagnosed with aortic valve endocarditis. He will need a full course of antibiotic therapy as directed by Infectious Disease. I will discuss the need for NOHELIA with ID since I do not believe it will make a difference in his care at this time. I will follow him for cardiology during his hospitalization. The plan was discussed with the patient and he is reluctant to stay in the hospital for more than a few days. Otakar Quadrat, MD OQ/LILIANE /2:37 PM /2:47 PM [id number]
[2017-11-12] MEDS: SODIUM CHLORIDE 0.9% FLUSH 10 ML FLUSH IV FLUSH SCH ×2 (16:37→19:46)
--- NOTE | 2017-11-12 18:44 | HHI.IDPN ---
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 Patient has expressive as well as possible receptive aphasia as a result of that. His mother reports he lives with her. He does go out of the home to meet friends. To the best of her knowledge he does not do drugs but she would not be surprised if he did. She reported he had complained of sweating and left side weakness with fever 103 F associated with chills. He denies any pain. He reports cough with phlegm. He denies any N/V or diarrhea. He was seen by Neuro and it appears he is non compliant with medications including aspirin prescribed last admission. Last admission patient was treated for endocarditis possibly per mother. Patient was sepsis and workup revealed Gram neg bacteremia and ID was consulted due to suspicion of endocarditis. 2D ECHO pending. Overnight events reviewed Transferred to the floor. Fevers defervesced BP better. More awake UO ok. No rash No diarrhea Patient starting cursing with 'F' word. He said "I only did a little bit of drug how I got infection of heart" Patient said " I will stay here 1 week only" Antibiotics Cefepime IV Vanco IV Lines Line sites with no e.o infection Past Medical History reviewed Allergies: Coded Allergies: No Known Allergies (Verified Allergy, Unknown, 11/10/17) Objective . Vital Signs Date Time Temp Pulse Resp B/P (MAP) Pulse Ox O2 Delivery O2 Flow Rate FiO2 11/12/17 16:00 87 11/12/17 16:00 98.4 87 18 131/53 (79) 98 11/12/17 12:00 86 11/12/17 12:00 98.8 86 18 120/55 (76) 98 11/12/17 08:00 98.3 88 18 118/52 (74) 98 11/12/17 08:00 88 11/12/17 05:40 95 11/12/17 03:10 99.9 94 17 115/56 (75) 96 11/12/17 01:50 96 11/12/17 00:20 98.7 88 18 125/57 (79) 97 11/11/17 23:15 100 11/11/17 20:00 99.5 91 28 119/58 (78) 97 11/11/17 20:00 91 11/12/17 11/12/17 11/13/17 15:00 23:00 07:00 Intake Total 600 ml Balance 600 ml Intake Oral 600 ml # Voids 4 # Bowel Movements 1 . Laboratory Tests Test 11/11/17 05:12 11/12/17 04:55 White Blood Count 18.0 TH/MM3 14.8 TH/MM3 Red Blood Count 3.44 MIL/MM3 3.27 MIL/MM3 Hemoglobin 9.7 GM/DL 9.2 GM/DL Hematocrit 28.4 % 26.9 % Mean Corpuscular Volume 82.4 FL 82.3 FL Mean Corpuscular Hemoglobin 28.1 PG 28.1 PG Mean Corpuscular Hemoglobin Concent 34.1 % 34.1 % Red Cell Distribution Width 16.0 % 16.2 % Platelet Count 137 TH/MM3 200 TH/MM3 Mean Platelet Volume 9.1 FL 9.5 FL Neutrophils (%) (Auto) 79.9 % 73.8 % Lymphocytes (%) (Auto) 9.7 % 12.9 % Monocytes (%) (Auto) 9.8 % 11.9 % Eosinophils (%) (Auto) 0.2 % 0.5 % Basophils (%) (Auto) 0.4 % 0.9 % Neutrophils # (Auto) 14.4 TH/MM3 10.9 TH/MM3 Lymphocytes # (Auto) 1.7 TH/MM3 1.9 TH/MM3 Monocytes # (Auto) 1.8 TH/MM3 1.8 TH/MM3 Eosinophils # (Auto) 0.0 TH/MM3 0.1 TH/MM3 Basophils # (Auto) 0.1 TH/MM3 0.1 TH/MM3 CBC Comment DIFF FINAL DIFF FINAL Differential Comment Laboratory Tests Test 11/10/17 21:54 11/11/17 05:12 11/12/17 04:55 Blood Urea Nitrogen 53 MG/DL 52 MG/DL 27 MG/DL Creatinine 2.20 MG/DL 1.74 MG/DL 0.97 MG/DL Random Glucose 105 MG/DL 99 MG/DL 111 MG/DL Calcium Level 7.9 MG/DL 7.7 MG/DL 7.9 MG/DL Phosphorus Level 4.8 MG/DL 2.8 MG/DL Magnesium Level 2.7 MG/DL 2.2 MG/DL Sodium Level 139 MEQ/L 135 MEQ/L 137 MEQ/L Potassium Level 3.8 MEQ/L 3.6 MEQ/L 3.6 MEQ/L Chloride Level 108 MEQ/L 105 MEQ/L 109 MEQ/L Carbon Dioxide Level 21.1 MEQ/L 16.8 MEQ/L 19.4 MEQ/L Anion Gap 10 MEQ/L 13 MEQ/L 9 MEQ/L Estimat Glomerular Filtration Rate 32 ML/MIN 42 ML/MIN 82 ML/MIN Total Protein 6.3 GM/DL 6.1 GM/DL Albumin 2.2 GM/DL 2.0 GM/DL Alkaline Phosphatase 129 U/L 109 U/L Aspartate Amino Transf (AST/SGOT) 140 U/L 57 U/L Alanine Aminotransferase (ALT/SGPT) 148 U/L 97 U/L Total Bilirubin 0.7 MG/DL 0.5 MG/DL Direct Bilirubin 0.4 MG/DL Lactic Acid Level 1.0 mmol/L Indirect Bilirubin 0.3 MG/DL Triglycerides Level 235 MG/DL Cholesterol Level 108 MG/DL LDL Cholesterol 53 MG/DL HDL Cholesterol 7.6 MG/DL Cholesterol/HDL Ratio 14.21 RATIO Lipase 176 U/L Free Thyroxine 2.23 NG/DL Thyroid Stimulating Hormone 3rd Gen 1.760 uIU/ML Microbiology Date/Time Source Procedure Growth Status 11/11/17 16:26 Blood Peripheral Aerobic Blood Culture - Preliminary Gram Negative Davis Resulted 11/11/17 16:26 Blood Peripheral Anaerobic Blood Culture - Preliminary NO GROWTH IN 1 DAY Resulted 11/11/17 16:23 Blood Peripheral Aerobic Blood Culture - Preliminary NO GROWTH IN 1 DAY Resulted 11/11/17 16:23 Blood Peripheral Anaerobic Blood Culture - Preliminary NO GROWTH IN 1 DAY Resulted 11/10/17 10:55 Blood Peripheral Aerobic Blood Culture - Preliminary Pseudomonas Aeruginosa Group D Enterococcus Resulted 11/10/17 10:55 Anaerobic Blood Culture - Preliminary Pseudomonas Aeruginosa Group D Enterococcus Resulted 11/10/17 10:45 Blood Peripheral Aerobic Blood Culture - Preliminary Pseudomonas Aeruginosa Group D Enterococcus Resulted 11/10/17 10:45 Anaerobic Blood Culture - Preliminary Pseudomonas Aeruginosa Group D Enterococcus Resulted 11/10/17 11:15 Nasal Washing Influenza Types A,B Antigen (SERENITY) - Final NEGATIVE FOR FLU A AND B ANTIGEN.... Complete 11/10/17 14:20 Urine Catheterized Urine Urine Culture - Final NO GROWTH IN 48 HOURS. Complete Imaging Last Impressions Head CT 11/10/17 1036 Signed Impressions: Service Date/Time: Friday, November 10, 2017 12:16 - CONCLUSION: There is abnormal low density, likely representing cytotoxic edema, in the left frontal lobe. This very likely is related to a recent ischemic event. Reji Dasilva MD Chest X-Ray 11/10/17 1036 Signed Impressions: Service Date/Time: Friday, November 10, 2017 10:54 - CONCLUSION: No acute cardiopulmonary process. Kirby Trejo MD Liver Ultrasound 11/10/17 0000 Signed Impressions: Service Date/Time: Friday, November 10, 2017 14:47 - CONCLUSION: 1. Liver and spleen are both enlarged with multiple diffuse hepatic fatty infiltration. 2. Linear echogenic area within the lateral mid body of the spleen may represent a focal area of scarring. 3. Benign renal cortical cysts of the right kidney. 4. Small 3 mm gallbladder polyp. Gallbladder is otherwise sonographically normal. Kirby Trejo MD Brain MRI 11/10/17 0000 Signed Impressions: Service Date/Time: Friday, November 10, 2017 20:51 - CONCLUSION: The eighth of diminished attenuation involving the left frontoparietal junction on the patient's prior CT examination corresponds to acute infarction in addition to multiple other areas of new acute infarction bilaterally not present on the prior MRI dated 09/10/2017 and previously seen acute infarctions on the right side on that study have been evolved. Findings were discussed with the patient's nurse Chandan on 11/10/2017 9:19 PM. Fernanda Padilla MD Physical Exam GENERAL: This is a well-nourished, well-developed patient, in no apparent distress. SKIN: No rashes, ecchymoses or lesions. Cool and dry. HEAD: Atraumatic. Normocephalic. No temporal or scalp tenderness. EYES: Pupils equal round and reactive. Extraocular motions intact. No scleral icterus. No injection or drainage. ENT: Nose without bleeding, purulent drainage or septal hematoma. Throat without erythema, tonsillar hypertrophy or exudate. Uvula midline. Airway patent. NECK: Trachea midline. Supple, nontender, no meningeal signs. CARDIOVASCULAR: HS audible. RESPIRATORY: Clear to auscultation. Breath sounds equal bilaterally. No wheezes , rales, or rhonchi. GASTROINTESTINAL: Abdomen soft, non-tender, nondistended. MUSCULOSKELETAL: Extremities without clubbing, cyanosis, or edema. NEUROLOGICAL: Awake and alert. Cranial nerves II through XII intact. Expressive and receptive aphasia Psych cooperative IV line sites with no e.o infection. Assessment & Plan Remarks Sepsis Aortic valve Endocarditis Pseudomonas bacteremia Enterococcus bacteremia Cerebral stroke (multiple embolic episodes likely microabscesses) h/o cocaine abuse h/o stroke in Aug 2017. Recs Continue Cefepime IV Continue Vanco IV (target trough 15-20) Follow cultures Follow clinically 2D ECHO: janine ShermanQuadrat Aortic valve 5 mm vegetation. No plan for NOHELIA. covering for me this weekend. Jacinda Brock MD Nov 12, 2017 18:44
[2017-11-12 20:01] LABS: HEMOGLOBIN A1C 5.4 % (4.3-6.0)
[2017-11-12] MEDS ORDERED: PHARMACY ORDERED LAB ONE (23:45)
[2017-11-13] MEDS: VANCOMYCIN INJ 1,250 MG in SODIUM CHLOR 0.9% 250 ML INJ 250 ML IV SCH ×2 (00:20→19:30)
[2017-11-13] MEDS: SODIUM CHLOR 0.9% 1000 ML INJ 1,000 ML IV SCH ×3 (00:21→22:07)
[2017-11-13] MEDS: CEFEPIME INJ 2,000 MG in SODIUM CHLORIDE 0.9% INJ 100 ML IV SCH ×3 (05:23→22:45)
[2017-11-13] MEDS: HEPARIN SODIUM - SQ 10,000 UNITS/ML VIAL SQ SCH ×3 (05:25→22:47)
[2017-11-13 05:35] VITALS: BP 121/58; PULSE 92; RESP 18; TEMP 98.1; O2SAT 97
[2017-11-13 06:13] LABS: AUTOMATED NEUTROPHIL # 9.5 TH/MM3 (1.8-7.7); BASOPHIL % 0.4 % (0.0-2.0); EOSINOPHIL # 0.1 TH/MM3 (0-0.4); HEMATOCRIT 25.3 % (39.0-51.0); HEMOGLOBIN 8.4 GM/DL (13.0-17.0); LYMPH % 14.8 % (9.0-44.0); LYMPHOCYTE # 1.9 TH/MM3 (1.0-4.8); MEAN CORPUSCULAR HEMOGLOBIN 27.5 PG (27.0-34.0); MEAN CORPUSCULAR HGB CONC 33.2 % (32.0-36.0); MEAN PLATELET VOLUME 8.4 FL (7.0-11.0); MONO % 10.7 % (0.0-8.0); MONOCYTE # 1.4 TH/MM3 (0-0.9); NEUT % 73.1 % (16.0-70.0); PLATELET COUNT 255 TH/MM3 (150-450); RED BLOOD COUNT 3.05 MIL/MM3 (4.50-5.90); RED CELL DISTRIBUTION WIDTH 16.2 % (11.6-17.2)
[2017-11-13 06:37] LABS: ALKALINE PHOSPHATASE 98 U/L (45-117); ALT (GPT) 67 U/L (12-78); AST (GOT) 36 U/L (15-37); BICARBONATE 20.2 MEQ/L (21.0-32.0); BLOOD UREA NITROGEN 15 MG/DL (7-18); CALCIUM 7.9 MG/DL (8.5-10.1); CHLORIDE 109 MEQ/L (98-107); CREATININE 0.86 MG/DL (0.60-1.30); GLOMERULAR FILTRATION RATE 94 ML/MIN (>89); GLUCOSE,RANDOM 104 MG/DL (74-106); MAGNESIUM 1.9 MG/DL (1.5-2.5); PHOSPHORUS 2.6 MG/DL (2.5-4.9); SODIUM (NA) 138 MEQ/L (136-145); TOTAL BILIRUBIN ADULT 0.6 MG/DL (0.2-1.0)
[2017-11-13 08:00] VITALS: BP 119/56; PULSE 92; RESP 19; TEMP 97.1; O2SAT 96
[2017-11-13] MEDS: MUPIROCIN 2% OINT 1 APPLIC/GM SYR NASAL SCH ×2 (09:00→21:00)
[2017-11-13] MEDS: DOCUSATE SODIUM 50 MG/SENNA 8.6 MG TAB PO SCH ×2 (09:00→21:20)
[2017-11-13] MEDS: SODIUM CHLORIDE 0.9% FLUSH 10 ML FLUSH IV FLUSH SCH ×2 (09:00→21:23)
--- NOTE | 2017-11-13 09:56 | HHI.PR ---
Subjective Remarks 52 years old male with H/O CVA last August presented to the ED with transitional change in mental status not being able to verbalize words patient seems to be able to understand words however he cannot answer verbally which is consistent with expressive aphasia he said he has been having sweating since last night started with a weakness on his left side, there was a fever of 103 with positive chills, patient denied any pain, he reported cough with no significant phlegm, he denied any diarrhea abdominal pain nausea vomiting or dysuria As mentioned above patient had multiple bilateral small ischemic stroke in August 2017 he was seen by neurologist and sent home on baby aspirin 2 tablets In the previous admission there was a concern for right heart endocarditis however NOHELIA did not reveal any vegetation 2-15 SEEN IN ICU QUITE APHASIC PASSED SWALLOW EVAL NEEDS ECHO- MAY NEED NOHELIA DW RN AND PT OK FOR OUT OF ICU 2-16 PATIENT HAD ECHO WILL NOT NEED A NOHELIA DUE TO ABNORMAL VALVE NO NEW COMPLAINTS DW RN AND PT INCREASE ACTIVITY. 2-17 POSITIVE BLOOD CULTURES WILL NEED DETENTION ANTIBIOTICS REMAINS APHASIC Objective Vitals Vital Signs Date Time Temp Pulse Resp B/P (MAP) Pulse Ox O2 Delivery O2 Flow Rate FiO2 11/13/17 08:00 97.1 92 19 119/56 (77) 96 11/13/17 05:35 98.1 92 18 121/58 (79) 97 11/12/17 23:40 98.7 99 18 119/56 (77) 97 11/12/17 21:41 92 11/12/17 21:15 99.0 92 17 127/59 (81) 99 11/12/17 16:00 87 11/12/17 16:00 98.4 87 18 131/53 (79) 98 11/12/17 12:00 86 11/12/17 12:00 98.8 86 18 120/55 (76) 98 I/O 11/12/1718 11/12/1718 18 11/13/17 07:00 15:00 23:00 07:00 15:00 23:00 Intake Total 1340 ml 100 ml 2980 ml 480 ml Output Total 400 ml Balance 940 ml 100 ml 2980 ml 480 ml Intake Oral 240 ml 1080 ml 480 ml IV Total 1100 ml 100 ml 1900 ml Output Urine Total 400 ml # Voids 2 6 3 # Bowel Movements 0 1 0 Result Diagram: 2/17/18 0533 11/13/17 0533 Other Results Laboratory Tests Test 11/10/17 10:45 11/10/17 11:00 11/10/17 13:30 11/10/17 14:20 White Blood Count 20.8 TH/MM3 Red Blood Count 4.36 MIL/MM3 Hemoglobin 12.2 GM/DL Hematocrit 36.1 % Mean Corpuscular Volume 82.7 FL Mean Corpuscular Hemoglobin 28.1 PG Mean Corpuscular Hemoglobin Concent 33.9 % Red Cell Distribution Width 16.2 % Platelet Count 168 TH/MM3 Mean Platelet Volume 9.0 FL Neutrophils (%) (Auto) 95.6 % Lymphocytes (%) (Auto) 1.9 % Monocytes (%) (Auto) 2.3 % Eosinophils (%) (Auto) 0.0 % Basophils (%) (Auto) 0.2 % Neutrophils # (Auto) 19.8 TH/MM3 Lymphocytes # (Auto) 0.4 TH/MM3 Monocytes # (Auto) 0.5 TH/MM3 Eosinophils # (Auto) 0.0 TH/MM3 Basophils # (Auto) 0.0 TH/MM3 CBC Comment DIFF FINAL Differential Comment Blood Urea Nitrogen 49 MG/DL Creatinine 2.87 MG/DL Random Glucose 143 MG/DL Total Protein 8.5 GM/DL Albumin 2.9 GM/DL Calcium Level 8.7 MG/DL Alkaline Phosphatase 189 U/L Aspartate Amino Transf (AST/SGOT) 124 U/L Alanine Aminotransferase (ALT/SGPT) 98 U/L Total Bilirubin 0.9 MG/DL Sodium Level 130 MEQ/L Potassium Level 4.4 MEQ/L Chloride Level 98 MEQ/L Carbon Dioxide Level 16.6 MEQ/L Anion Gap 15 MEQ/L Estimat Glomerular Filtration Rate 23 ML/MIN Lactic Acid Level 2.9 mmol/L 1.1 mmol/L Urine Color DARK-YELLOW Urine Turbidity HAZY Urine pH 5.0 Urine Specific [place] 1.021 Urine Protein 30 mg/dL Urine Glucose (UA) TRACE mg/dL Urine Ketones NEG mg/dL Urine Occult Blood SMALL Urine Nitrite NEG Urine Bilirubin NEG Urine Urobilinogen 2.0 MG/DL Urine Leukocyte Esterase SMALL Urine RBC 8 /hpf Urine WBC 14 /hpf Urine Squamous Epithelial Cells <1 /hpf Urine Bacteria MOD /hpf Urine Hyaline Casts 7 /lpf Urine White Blood Cell Casts 7 /lpf Urine Mucus FEW /lpf Microscopic Urinalysis Comment CATH-CULTURE IND Test 11/10/17 15:40 11/10/17 21:54 11/11/17 05:12 11/12/17 04:55 Nasal Screen MRSA (PCR) MRSA NOT DETECTED Blood Urea Nitrogen 53 MG/DL 52 MG/DL 27 MG/DL Creatinine 2.20 MG/DL 1.74 MG/DL 0.97 MG/DL Random Glucose 105 MG/DL 99 MG/DL 111 MG/DL Calcium Level 7.9 MG/DL 7.7 MG/DL 7.9 MG/DL Phosphorus Level 4.8 MG/DL 2.8 MG/DL Magnesium Level 2.7 MG/DL 2.2 MG/DL Sodium Level 139 MEQ/L 135 MEQ/L 137 MEQ/L Potassium Level 3.8 MEQ/L 3.6 MEQ/L 3.6 MEQ/L Chloride Level 108 MEQ/L 105 MEQ/L 109 MEQ/L Carbon Dioxide Level 21.1 MEQ/L 16.8 MEQ/L 19.4 MEQ/L Anion Gap 10 MEQ/L 13 MEQ/L 9 MEQ/L Estimat Glomerular Filtration Rate 32 ML/MIN 42 ML/MIN 82 ML/MIN Hepatitis A IgM Antibody NEGATIVE Hepatitis B Surface Antigen NEGATIVE Hepatitis B Core IgM Antibody NEGATIVE Hepatitis C Antibody NEGATIVE White Blood Count 18.0 TH/MM3 14.8 TH/MM3 Red Blood Count 3.44 MIL/MM3 3.27 MIL/MM3 Hemoglobin 9.7 GM/DL 9.2 GM/DL Hematocrit 28.4 % 26.9 % Mean Corpuscular Volume 82.4 FL 82.3 FL Mean Corpuscular Hemoglobin 28.1 PG 28.1 PG Mean Corpuscular Hemoglobin Concent 34.1 % 34.1 % Red Cell Distribution Width 16.0 % 16.2 % Platelet Count 137 TH/MM3 200 TH/MM3 Mean Platelet Volume 9.1 FL 9.5 FL Neutrophils (%) (Auto) 79.9 % 73.8 % Lymphocytes (%) (Auto) 9.7 % 12.9 % Monocytes (%) (Auto) 9.8 % 11.9 % Eosinophils (%) (Auto) 0.2 % 0.5 % Basophils (%) (Auto) 0.4 % 0.9 % Neutrophils # (Auto) 14.4 TH/MM3 10.9 TH/MM3 Lymphocytes # (Auto) 1.7 TH/MM3 1.9 TH/MM3 Monocytes # (Auto) 1.8 TH/MM3 1.8 TH/MM3 Eosinophils # (Auto) 0.0 TH/MM3 0.1 TH/MM3 Basophils # (Auto) 0.1 TH/MM3 0.1 TH/MM3 CBC Comment DIFF FINAL DIFF FINAL Differential Comment Prothrombin Time 13.0 SEC Prothromb Time International Ratio 1.3 RATIO Total Protein 6.3 GM/DL 6.1 GM/DL Albumin 2.2 GM/DL 2.0 GM/DL Alkaline Phosphatase 129 U/L 109 U/L Aspartate Amino Transf (AST/SGOT) 140 U/L 57 U/L Alanine Aminotransferase (ALT/SGPT) 148 U/L 97 U/L Total Bilirubin 0.7 MG/DL 0.5 MG/DL Direct Bilirubin 0.4 MG/DL Lactic Acid Level 1.0 mmol/L Indirect Bilirubin 0.3 MG/DL Triglycerides Level 235 MG/DL Cholesterol Level 108 MG/DL LDL Cholesterol 53 MG/DL HDL Cholesterol 7.6 MG/DL Cholesterol/HDL Ratio 14.21 RATIO Lipase 176 U/L Random Vancomycin Level 14.1 COMMENT Hemoglobin A1c 5.4 % Free Thyroxine 2.23 NG/DL Thyroid Stimulating Hormone 3rd Gen 1.760 uIU/ML Test 11/12/17 23:50 11/13/17 05:33 Vancomycin Level Trough 8.7 MCG/ML White Blood Count 13.0 TH/MM3 Red Blood Count 3.05 MIL/MM3 Hemoglobin 8.4 GM/DL Hematocrit 25.3 % Mean Corpuscular Volume 83.0 FL Mean Corpuscular Hemoglobin 27.5 PG Mean Corpuscular Hemoglobin Concent 33.2 % Red Cell Distribution Width 16.2 % Platelet Count 255 TH/MM3 Mean Platelet Volume 8.4 FL Neutrophils (%) (Auto) 73.1 % Lymphocytes (%) (Auto) 14.8 % Monocytes (%) (Auto) 10.7 % Eosinophils (%) (Auto) 1.0 % Basophils (%) (Auto) 0.4 % Neutrophils # (Auto) 9.5 TH/MM3 Lymphocytes # (Auto) 1.9 TH/MM3 Monocytes # (Auto) 1.4 TH/MM3 Eosinophils # (Auto) 0.1 TH/MM3 Basophils # (Auto) 0.0 TH/MM3 CBC Comment DIFF FINAL Differential Comment Blood Urea Nitrogen 15 MG/DL Creatinine 0.86 MG/DL Random Glucose 104 MG/DL Total Protein 6.0 GM/DL Albumin 2.0 GM/DL Calcium Level 7.9 MG/DL Phosphorus Level 2.6 MG/DL Magnesium Level 1.9 MG/DL Alkaline Phosphatase 98 U/L Aspartate Amino Transf (AST/SGOT) 36 U/L Alanine Aminotransferase (ALT/SGPT) 67 U/L Total Bilirubin 0.6 MG/DL Sodium Level 138 MEQ/L Potassium Level 3.7 MEQ/L Chloride Level 109 MEQ/L Carbon Dioxide Level 20.2 MEQ/L Anion Gap 9 MEQ/L Estimat Glomerular Filtration Rate 94 ML/MIN Imaging Last Impressions Head CT 11/10/17 1036 Signed Impressions: Service Date/Time: Friday, November 10, 2017 12:16 - CONCLUSION: There is abnormal low density, likely representing cytotoxic edema, in the left frontal lobe. This very likely is related to a recent ischemic event. eRji Dasilva MD Chest X-Ray 11/10/17 1036 Signed Impressions: Service Date/Time: Friday, November 10, 2017 10:54 - CONCLUSION: No acute cardiopulmonary process. Kirby Trejo MD Liver Ultrasound 11/10/17 0000 Signed Impressions: Service Date/Time: Friday, November 10, 2017 14:47 - CONCLUSION: 1. Liver and spleen are both enlarged with multiple diffuse hepatic fatty infiltration. 2. Linear echogenic area within the lateral mid body of the spleen may represent a focal area of scarring. 3. Benign renal cortical cysts of the right kidney. 4. Small 3 mm gallbladder polyp. Gallbladder is otherwise sonographically normal. Kirby Trejo MD Brain MRI 11/10/17 0000 Signed Impressions: Service Date/Time: Friday, November 10, 2017 20:51 - CONCLUSION: The eighth of diminished attenuation involving the left frontoparietal junction on the patient's prior CT examination corresponds to acute infarction in addition to multiple other areas of new acute infarction bilaterally not present on the prior MRI dated 09/10/2017 and previously seen acute infarctions on the right side on that study have been evolved. Findings were discussed with the patient's nurse Chandan on 11/10/2017 9:19 PM. Fernanda Padilla MD Objective Remarks GENERAL: Alert talkative and cooperative quite aphasic not able to get all questions answered SKIN: Warm and dry. HEAD: Atraumatic. Normocephalic. EYES: Pupils equal and round. No scleral icterus. No injection or drainage. Extraocular muscles intact ENT: No nasal bleeding or discharge. Mucous membranes pink and moist. Tongue is midline NECK: Trachea midline. No JVD. Supple CARDIOVASCULAR: Regular rate and rhythm. S1 and S2 no S3 or S4 RESPIRATORY: No accessory muscle use. Clear to auscultation. Breath sounds equal bilaterally. GASTROINTESTINAL: Abdomen soft, non-tender, nondistended. Hepatic and splenic margins not palpable. MUSCULOSKELETAL: Extremities without clubbing, cyanosis, or edema. No obvious deformities. NEUROLOGICAL: Awake and alert. No obvious cranial nerve deficits. Motor grossly within normal limits. Five out of 5 muscle strength in the arms and legs. Normal speech. But very Aphasic not getting correct words out PSYCHIATRIC: INAppropriate mood and affect; insight and judgment abnormal. Medications and IVs Current Medications Vancomycin HCl 1000 mg/Sodium Chloride 250 ml @ 250 mls/hr ONCE STAT IV Last administered on 11/10/17at 13:21; Start 11/10/17 at 10:36; Stop 11/10/17 at 11:35 ; Status DC Cefepime HCl 2000 mg/Sodium Chloride 100 ml @ 200 mls/hr ONCE STAT IV Last administered on 11/10/17at 11:18; Start 11/10/17 at 10:36; Stop 11/10/17 at 11:20 ; Status DC Sodium Chloride 1,000 ml @ 999 mls/hr BOLUS ONCE IV Last administered on 11/10at 11:20; Start 11/10/17 at 11:30; Stop 11/10/17 at 12:38; Status DC Acetaminophen (Tylenol Supp) 650 mg ONCE ONCE RECTAL Last administered on 11/10at 11:41; Start 11/10/17 at 11:30; Stop 11/10/17 at 11:31; Status DC Aspirin (Aspirin Supp) 300 mg ONCE ONCE RECTAL Last administered on 11/10/17at 13:21; Start 11/10/17 at 13:00; Stop 11/10/17 at 13:02; Status DC Sodium Chloride 1,000 ml @ 100 mls/hr Q10H IV Last administered on 11/12/17at 16:38; Start 11/10/17 at 14:07 Sodium Chloride (NS Flush) 2 ml UNSCH PRN IV FLUSH FLUSH AFTER USING IV ACCESS ; Start 11/10/17 at 14:15 Sodium Chloride (NS Flush) 2 ml BID IV FLUSH Last administered on 11/12/17at 16: 37; Start 11/10/17 at 21:00 Heparin Sodium (Porcine) (Heparin Inj) 5,000 units Q8H SQ Last administered on 11/13/17at 05:25; Start 11/10/17 at 14:15 Naloxone HCl (Narcan Inj) 0.4 mg UNSCH PRN IV PUSH SEE LABEL COMMENTS; Start at 14:15 Senna/Docusate Sodium (Arabella-Colace) 1 tab BID PO Last administered on at 19:46; Start 11/10/17 at 21:00 Magnesium Hydroxide (Milk Of Magnesia Liq) 30 ml Q12H PRN PO Mild constipation ; Start 11/10/17 at 14:15 Sennosides (Senokot) 17.2 mg Q12H PRN PO Moderate constipation; Start 11/10/17 at 14:15 Bisacodyl (Dulcolax Supp) 10 mg DAILY PRN RECTAL SEVERE CONSITIPATION; Start at 14:15 Lactulose (Lactulose Liq) 30 ml DAILY PRN PO SEVERE CONSITIPATION; Start at 14:15 Sodium Chloride 1,000 ml @ 999 mls/hr BOLUS ONCE IV Last administered on 11/10at 16:40; Start 11/10/17 at 14:15; Stop 11/10/17 at 15:29; Status DC Sodium Chloride 1,000 ml @ 999 mls/hr BOLUS ONCE IV Last administered on 11/10at 17:40; Start 11/10/17 at 14:15; Stop 11/10/17 at 15:29; Status DC Sodium Chloride 1,000 ml @ 42 mls/hr [id number] IV ; Start 11/10/17 at 14:07; Stop 11/10/17 at 17:15; Status DC Sodium Chloride 1,000 ml @ 84 mls/hr [id number] IV ; Start 11/10/17 at 14:07; Stop 11/10/17 at 17:15; Status DC Sodium Chloride 1,000 ml @ 100 mls/hr Q10H IV ; Start 11/10/17 at 14:07; Stop 11/10/17 at 17:15; Status DC Sodium Chloride 1,000 ml @ 125 mls/hr Q8H IV ; Start 11/10/17 at 14:07; Stop at 17:16; Status DC Pharmacy Profile Note 0 ml @ 0 mls/hr UNSCH OTHER ; Start 11/10/17 at 14:15; Status Cancel Vancomycin HCl 1251 mg/Sodium Chloride 512.51 ml @ 250 mls/ hr Q12H IV ; Start 11/10/17 at 14:15; Status UNV Cefepime HCl 2000 mg/Sodium Chloride 100 ml @ 200 mls/hr Q8H IV Last administered on 11/13/17at 05:23; Start 11/10/17 at 14:15 Vancomycin HCl 750 mg/Sodium Chloride 257.5 ml @ 250 mls/hr ONCE ONCE IV Last administered on 11/10/17at 18:48; Start 11/10/17 at 16:00; Stop 11/10/17 at 17:01; Status DC Mupirocin (Bactroban Nasal 2% Oint) 1 applic BID NASAL Last administered on at 21:42; Start 11/10/17 at 21:00 Sodium Chloride 2,000 ml @ 999 mls/hr Q2H1M IV Last administered on 11/10/17at 17:45; Start 11/10/17 at 17:45; Stop 11/10/17 at 19:45; Status DC Vancomycin HCl 1250 mg/Sodium Chloride 262.5 ml @ 250 mls/hr Q18H IV Last administered on 11/13/17at 00:20; Start 11/11/17 at 12:00 Miscellaneous Information SPECIFIC LAB TO BE DRAWN:VANCOMYCIN TROUGH DATE TO... ONCE ONCE .XX Last administered on 11/12/17at 23:50; Start 11/12/17 at 23:45; Stop 11/12/17 at 23:46; Status DC Pharmacy Profile Note 0 ml @ 0 mls/hr UNSCH OTHER ; Start 11/11/17 at 15:30 A/P Assessment and Plan 52 years old male with history of cocaine abuse and recent CVA presented with Disorientation/expressive aphasia due to left frontoparietal ischemic stroke shown on MRI of the brain SUSPECT DUE TO AORTIC VALVE ENDOCARDITIS History of recent bilateral parietal ischemia in August 2017, with concern at that time for right heart with endocarditis/bacteremia--AORTIC VALVE ENDOCARDITIS Suspect sepsis with febrile illness 103, tachycardia hypotension, leukocytosis with bandemia and left shift, lactic acidosis>> still unknown source of infection, chest x-ray unremarkable, awaiting UA-possibly mildly positive-- AORTIC VALVE ENDOCARDITIS Lactic acidosis Dehydration improving with fluids REGIS on possible CKD improving with fluids Increased transaminases with alk phos seems to be chronic from previous admission Acute non-anion gap metabolic acidosis DVT prophylaxis AORTIC VALVE ENDOCARDITIS Plan: Admit to ICU with close monitoring under telemetry--can be transferred out of ICU bed is available MRI/MRA, ultrasound of the carotid, 2D echo has been DONE CT and MRI of the head personally reviewed by me Started on broad-spectrum antibiotics cefepime and Vanco Consult neurology Aggressive hydration with normal saline Strict I AND OS Monitor BMP, lactic acid Liver ultrasound with hepatitis panel ID consultation in light of previous suspicion for bacteremia and right heart endocarditis AM LABS PT AND OT AND ST ECHO ABNORMAL NO NEED FOR NOHELIA AORTIC VALVE ENDOCARDITIS Discharge Planning PENDING COMPLETE ID WORK UP Ramakrishna Borrego DO Nov 13, 2017 09:56
[2017-11-13 11:58] VITALS: BP 104/43; PULSE 92; RESP 19; TEMP 97.5; O2SAT 98
[2017-11-13 13:26] VITALS: O2SAT 98
[2017-11-13] MEDS ORDERED: VANCOMYCIN INJ 1,250 MG in SODIUM CHLOR 0.9% 250 ML INJ 250 ML IV SCH (14:00)
[2017-11-13 16:00] VITALS: BP 120/53; PULSE 92; RESP 19; TEMP 97.9; O2SAT 98
--- NOTE | 2017-11-13 19:44 | PD.CARD.PN ---
Subjective Subjective Remarks No CP or SOB Objective Medications Current Medications Medications (Trade) Dose Ordered Sig/Vikas Route Start Time Stop Time Status Last Admin Sodium Chloride 1,000 ml @ 100 mls/hr Q10H IV 11/10/17 14:07 11/13/17 17:43 (NS Flush) 2 ml UNSCH PRN IV FLUSH 11/10/17 14:15 (NS Flush) 2 ml BID IV FLUSH 11/10/17 21:00 11/13/17 09:00 (Heparin Inj) 5,000 units Q8H SQ 11/10/17 14:15 11/13/17 14:15 (Narcan Inj) 0.4 mg UNSCH PRN IV PUSH 11/10/17 14:15 (Arabella-Colace) 1 tab BID PO 11/10/17 21:00 11/13/17 09:00 (Milk Of Magnesia Liq) 30 ml Q12H PRN PO 11/10/17 14:15 (Senokot) 17.2 mg Q12H PRN PO 11/10/17 14:15 (Dulcolax Supp) 10 mg DAILY PRN RECTAL 11/10/17 14:15 (Lactulose Liq) 30 ml DAILY PRN PO 11/10/17 14:15 Cefepime HCl 2000 mg/Sodium Chloride 100 ml @ 200 mls/hr Q8H IV 11/10/17 14:15 11/13/17 14:15 (Bactroban Nasal 2% Oint) 1 applic BID NASAL 11/10/17 21:00 11/11/17 21:42 Pharmacy Profile Note 0 ml @ 0 mls/hr UNSCH OTHER 11/11/17 15:30 Vancomycin HCl 1250 mg/Sodium Chloride 262.5 ml @ 250 mls/hr Q12H IV 11/13/17 20:00 11/13/17 19:30 Vital Signs / I&O Vital Signs Date Time Temp Pulse Resp B/P (MAP) Pulse Ox O2 Delivery O2 Flow Rate FiO2 11/13/17 16:00 97.9 92 19 120/53 (75) 98 11/13/17 13:26 98 11/13/17 11:58 97.5 92 19 104/43 (63) 98 11/13/17 08:00 97.1 92 19 119/56 (77) 96 11/13/17 05:35 98.1 92 18 121/58 (79) 97 11/12/17 23:40 98.7 99 18 119/56 (77) 97 11/12/17 21:41 92 11/12/17 21:15 99.0 92 17 127/59 (81) 99 I/O 11/12/17 11/12/17 11/12/17 11/13/17 11/13/17 11/13/17 07:00 15:00 23:00 07:00 15:00 23:00 Intake Total 1340 ml 100 ml 2980 ml 480 ml Output Total 400 ml Balance 940 ml 100 ml 2980 ml 480 ml Intake Oral 240 ml 1080 ml 480 ml IV Total 1100 ml 100 ml 1900 ml Output Urine Total 400 ml # Voids 2 6 3 8 # Bowel Movements 0 1 0 1 Physical Exam GENERAL: In NAD SKIN: Warm and dry. HEAD: Normocephalic. EYES: No scleral icterus. No injection or drainage. NECK: Supple, trachea midline. No JVD or lymphadenopathy. CARDIOVASCULAR: Regular rate and rhythm without murmurs, gallops, or rubs. RESPIRATORY: Breath sounds equal bilaterally. No accessory muscle use. GASTROINTESTINAL: Abdomen soft, non-tender, nondistended. MUSCULOSKELETAL: No cyanosis, or edema. Laboratory Laboratory Tests Test 11/12/17 23:50 11/13/17 05:33 Vancomycin Level Trough 8.7 MCG/ML White Blood Count 13.0 TH/MM3 Red Blood Count 3.05 MIL/MM3 Hemoglobin 8.4 GM/DL Hematocrit 25.3 % Mean Corpuscular Volume 83.0 FL Mean Corpuscular Hemoglobin 27.5 PG Mean Corpuscular Hemoglobin Concent 33.2 % Red Cell Distribution Width 16.2 % Platelet Count 255 TH/MM3 Mean Platelet Volume 8.4 FL Neutrophils (%) (Auto) 73.1 % Lymphocytes (%) (Auto) 14.8 % Monocytes (%) (Auto) 10.7 % Eosinophils (%) (Auto) 1.0 % Basophils (%) (Auto) 0.4 % Neutrophils # (Auto) 9.5 TH/MM3 Lymphocytes # (Auto) 1.9 TH/MM3 Monocytes # (Auto) 1.4 TH/MM3 Eosinophils # (Auto) 0.1 TH/MM3 Basophils # (Auto) 0.0 TH/MM3 CBC Comment DIFF FINAL Differential Comment Blood Urea Nitrogen 15 MG/DL Creatinine 0.86 MG/DL Random Glucose 104 MG/DL Total Protein 6.0 GM/DL Albumin 2.0 GM/DL Calcium Level 7.9 MG/DL Phosphorus Level 2.6 MG/DL Magnesium Level 1.9 MG/DL Alkaline Phosphatase 98 U/L Aspartate Amino Transf (AST/SGOT) 36 U/L Alanine Aminotransferase (ALT/SGPT) 67 U/L Total Bilirubin 0.6 MG/DL Sodium Level 138 MEQ/L Potassium Level 3.7 MEQ/L Chloride Level 109 MEQ/L Carbon Dioxide Level 20.2 MEQ/L Anion Gap 9 MEQ/L Estimat Glomerular Filtration Rate 94 ML/MIN Assessment and Plan Problem List: (1) Aortic valve endocarditis ICD Codes: I35.8 - Other nonrheumatic aortic valve disorders (2) CVA (cerebral vascular accident) ICD Codes: I63.9 - Cerebral infarction, unspecified (3) Severe sepsis ICD Codes: A41.9 - Sepsis, unspecified organism; R65.20 - Severe sepsis without septic shock Status: Acute (4) Tobacco abuse ICD Codes: Z72.0 - Tobacco use (5) Cocaine abuse ICD Codes: F14.10 - Cocaine abuse, uncomplicated Assessment and Plan Continue tx for AV endocarditis. No need for NOHELIA at this time, TTE shows AV vegetation. Pt has h/o noncompliance. Increase activity, PT. Leslie Rg MD Nov 13, 2017 19:44
[2017-11-13 20:00] VITALS: BP_SYST 117; BP_SYST 98; BP_DIAS 49; BP_DIAS 57; PULSE 62; PULSE 92; RESP 15; RESP 16; TEMP 98.2; O2SAT 96; O2SAT 97
[2017-11-14] VITALS: BP 127/58; PULSE 97; RESP 16; TEMP 99.7; O2SAT 95
[2017-11-14] MEDS: SODIUM CHLOR 0.9% 1000 ML INJ 1,000 ML IV SCH ×4 (04:44→19:49)
[2017-11-14] MEDS: CEFEPIME INJ 2,000 MG in SODIUM CHLORIDE 0.9% INJ 100 ML IV SCH ×3 (06:02→22:45)
[2017-11-14] MEDS: HEPARIN SODIUM - SQ 10,000 UNITS/ML VIAL SQ SCH ×3 (06:03→22:45)
[2017-11-14 08:00] VITALS: BP 118/62; PULSE 85; RESP 18; TEMP 99; O2SAT 96
[2017-11-14] MEDS: VANCOMYCIN INJ 1,250 MG in SODIUM CHLOR 0.9% 250 ML INJ 250 ML IV SCH ×2 (08:38→19:49)
[2017-11-14] MEDS: SODIUM CHLORIDE 0.9% FLUSH 10 ML FLUSH IV FLUSH SCH ×2 (08:43→19:53)
[2017-11-14] MEDS: MUPIROCIN 2% OINT 1 APPLIC/GM SYR NASAL SCH ×2 (08:46→19:53)
[2017-11-14] MEDS: DOCUSATE SODIUM 50 MG/SENNA 8.6 MG TAB PO SCH ×2 (08:46→19:53)
[2017-11-14 12:00] VITALS: BP 105/50; PULSE 85; RESP 18; TEMP 98.4; O2SAT 99
--- NOTE | 2017-11-14 12:22 | HHI.PR ---
Subjective Remarks Patient seen and examined this morning. Afebrile vital signs stable. Difficult to communicate due to patient's current aphasia. Does report that he is having some pain and swelling of the right ankle. Unaware of any injury to the right ankle. We will get imaging of the right ankle. Understands that he is to continue IV antibiotics due to the endocarditis. He is willing to give 1 week in this hospital and then he will leave regardless of medical advice. Objective Vitals Vital Signs Date Time Temp Pulse Resp B/P (MAP) Pulse Ox O2 Delivery O2 Flow Rate FiO2 11/14/17 08:00 99.0 85 18 118/62 (80) 96 11/14/17 00:00 99.7 97 16 127/58 (81) 95 11/13/17 20:00 98.2 92 16 117/57 (77) 96 11/13/17 16:00 97.9 92 19 120/53 (75) 98 11/13/17 13:26 98 I/O 11/13/17 11/13/17 11/13/17 11/14/17 11/14/17 11/14/17 07:00 15:00 23:00 07:00 15:00 23:00 Intake Total 480 ml 850 ml 1488 ml Balance 480 ml 850 ml 1488 ml Intake Oral 480 ml 600 ml 240 ml IV Total 250 ml 1248 ml # Voids 3 8 5 2 # Bowel Movements 0 1 Result Diagram: 11/13/17 0533 11/13/17 0533 Imaging Last Impressions Head CT 11/10/17 1036 Signed Impressions: Service Date/Time: Friday, November 10, 2017 12:16 - CONCLUSION: There is abnormal low density, likely representing cytotoxic edema, in the left frontal lobe. This very likely is related to a recent ischemic event. Reji Dasilva MD Chest X-Ray 11/10/17 1036 Signed Impressions: Service Date/Time: Friday, November 10, 2017 10:54 - CONCLUSION: No acute cardiopulmonary process. Kirby Trejo MD Liver Ultrasound 11/10/17 0000 Signed Impressions: Service Date/Time: Friday, November 10, 2017 14:47 - CONCLUSION: 1. Liver and spleen are both enlarged with multiple diffuse hepatic fatty infiltration. 2. Linear echogenic area within the lateral mid body of the spleen may represent a focal area of scarring. 3. Benign renal cortical cysts of the right kidney. 4. Small 3 mm gallbladder polyp. Gallbladder is otherwise sonographically normal. Kirby Trejo MD Brain MRI 11/10/17 0000 Signed Impressions: Service Date/Time: Friday, November 10, 2017 20:51 - CONCLUSION: The eighth of diminished attenuation involving the left frontoparietal junction on the patient's prior CT examination corresponds to acute infarction in addition to multiple other areas of new acute infarction bilaterally not present on the prior MRI dated 09/10/2017 and previously seen acute infarctions on the right side on that study have been evolved. Findings were discussed with the patient's nurse Chandan on 11/10/2017 9:19 PM. Fernanda Padilla MD Objective Remarks GENERAL: Alert talkative and cooperative quite aphasic not able to get all questions answered SKIN: Warm and dry. HEAD: Atraumatic. Normocephalic. EYES: Pupils equal and round. No scleral icterus. No injection or drainage. Extraocular muscles intact ENT: No nasal bleeding or discharge. Mucous membranes pink and moist. Tongue is midline NECK: Trachea midline. No JVD. Supple CARDIOVASCULAR: Regular rate and rhythm. S1 and S2 no S3 or S4 RESPIRATORY: No accessory muscle use. Clear to auscultation. Breath sounds equal bilaterally. GASTROINTESTINAL: Abdomen soft, non-tender, nondistended. Hepatic and splenic margins not palpable. MUSCULOSKELETAL: Extremities without clubbing, cyanosis, or edema. No obvious deformities. NEUROLOGICAL: Awake and alert. No obvious cranial nerve deficits. Motor grossly within normal limits. Five out of 5 muscle strength in the arms and legs. Normal speech. But very Aphasic not getting correct words out PSYCHIATRIC: Inappropriate mood and affect; insight and judgment abnormal. Medications and IVs Current Medications Medications (Trade) Dose Ordered Sig/Vikas Route Start Time Stop Time Status Last Admin Sodium Chloride 1,000 ml @ 100 mls/hr Q10H IV 11/10/17 14:07 11/14/17 04:44 (NS Flush) 2 ml UNSCH PRN IV FLUSH 11/10/17 14:15 (NS Flush) 2 ml BID IV FLUSH 11/10/17 21:00 11/14/17 08:43 (Heparin Inj) 5,000 units Q8H SQ 11/10/17 14:15 11/14/17 06:03 (Narcan Inj) 0.4 mg UNSCH PRN IV PUSH 11/10/17 14:15 (Arabella-Colace) 1 tab BID PO 11/10/17 21:00 11/13/17 21:20 (Milk Of Magnesia Liq) 30 ml Q12H PRN PO 11/10/17 14:15 (Senokot) 17.2 mg Q12H PRN PO 11/10/17 14:15 (Dulcolax Supp) 10 mg DAILY PRN RECTAL 11/10/17 14:15 (Lactulose Liq) 30 ml DAILY PRN PO 11/10/17 14:15 Cefepime HCl 2000 mg/Sodium Chloride 100 ml @ 200 mls/hr Q8H IV 11/10/17 14:15 11/14/17 06:02 (Bactroban Nasal 2% Oint) 1 applic BID NASAL 11/10/17 21:00 11/11/17 21:42 Pharmacy Profile Note 0 ml @ 0 mls/hr UNSCH OTHER 11/11/17 15:30 Vancomycin HCl 1250 mg/Sodium Chloride 262.5 ml @ 250 mls/hr Q12H IV 11/13/17 20:00 11/14/17 08:38 A/P Problem List: (1) Bacteremia ICD Code: R78.81 - Bacteremia (2) UTI (urinary tract infection) ICD Code: N39.0 - Urinary tract infection, site not specified (3) CVA (cerebral vascular accident) ICD Code: I63.9 - Cerebral infarction, unspecified (4) Cocaine abuse ICD Code: F14.10 - Cocaine abuse, uncomplicated (5) Aortic valve endocarditis ICD Code: I35.8 - Other nonrheumatic aortic valve disorders Assessment and Plan 52 years old male with history of cocaine abuse and recent CVA presented with Aortic Valve Endocarditis AORTIC VALVE ENDOCARDITIS Plan: MRI/MRA, ultrasound of the carotid, 2D echo has been DONE Continue on broad-spectrum antibiotics cefepime and Vanco Consult neurology IV NS at 100mls/hr Monitor BMP, lactic acid Liver ultrasound with hepatitis panel ID consultation due to bacteremia and right heart aortic valve endocarditis, recommendations appreciated AM LABS PT AND OT AND ST ECHO ABNORMAL NO NEED FOR NOHELIA AORTIC VALVE ENDOCARDITIS Swollen Ankle -xray pending DVT prophylaxis Patient threatening to leave this would be against medical advice Discharge Planning Continuing infectious disease workup Andres Garza MD, R3 Nov 14, 2017 12:22
[2017-11-14 13:52] VITALS: O2SAT 95
--- NOTE | 2017-11-14 14:25 | RADRPT ---
EXAM DATE/TIME: 11/14/2017 14:00 [facility] COMPARISON: No previous studies available for comparison. INDICATIONS : <Ankle pain> MEDICAL HISTORY : Cerebrovascular disease.Strike, altered mental status SURGICAL HISTORY : ENCOUNTER: Initial ACUITY: 4 - 6 days PAIN SCORE: 6/10 LOCATION: Right Ankle FINDINGS: Three view exam was performed of the right ankle. The bony structures are in normal alignment. No e vidence of fracture, dislocation, or soft tissue swelling. The ankle mortise is intact. No radiopaq ue foreign bodies are seen. Bony mineralization is normal. CONCLUSION: Unremarkable examination of the right ankle. Valeriy Chapa MD on November 14, 2017 at 14:23 Board Certified Radiologist. This report was verified electronically.
--- NOTE | 2017-11-14 14:52 | PD.CARD.PN ---
Subjective Subjective Remarks No CP or SOB, c/o R leg pain Objective Medications Current Medications Medications (Trade) Dose Ordered Sig/Vikas Route Start Time Stop Time Status Last Admin Sodium Chloride 1,000 ml @ 100 mls/hr Q10H IV 11/10/17 14:07 11/14/17 04:44 (NS Flush) 2 ml UNSCH PRN IV FLUSH 11/10/17 14:15 (NS Flush) 2 ml BID IV FLUSH 11/10/17 21:00 11/14/17 08:43 (Heparin Inj) 5,000 units Q8H SQ 11/10/17 14:15 11/14/17 06:03 (Narcan Inj) 0.4 mg UNSCH PRN IV PUSH 11/10/17 14:15 (Arabella-Colace) 1 tab BID PO 11/10/17 21:00 11/13/17 21:20 (Milk Of Magnesia Liq) 30 ml Q12H PRN PO 11/10/17 14:15 (Senokot) 17.2 mg Q12H PRN PO 11/10/17 14:15 (Dulcolax Supp) 10 mg DAILY PRN RECTAL 11/10/17 14:15 (Lactulose Liq) 30 ml DAILY PRN PO 11/10/17 14:15 Cefepime HCl 2000 mg/Sodium Chloride 100 ml @ 200 mls/hr Q8H IV 11/10/17 14:15 11/14/17 06:02 (Bactroban Nasal 2% Oint) 1 applic BID NASAL 11/10/17 21:00 11/11/17 21:42 Pharmacy Profile Note 0 ml @ 0 mls/hr UNSCH OTHER 11/11/17 15:30 Vancomycin HCl 1250 mg/Sodium Chloride 262.5 ml @ 250 mls/hr Q12H IV 11/13/17 20:00 11/14/17 08:38 Vital Signs / I&O Vital Signs Date Time Temp Pulse Resp B/P (MAP) Pulse Ox O2 Delivery O2 Flow Rate FiO2 11/14/17 12:00 98.4 85 18 105/50 (68) 99 11/14/17 08:00 99.0 85 18 118/62 (80) 96 11/14/17 00:00 99.7 97 16 127/58 (81) 95 11/13/17 20:00 98.2 92 16 117/57 (77) 96 11/13/17 16:00 97.9 92 19 120/53 (75) 98 I/O 11/13/17 11/13/17 11/13/17 11/14/17 11/14/17 11/14/17 07:00 15:00 23:00 07:00 15:00 23:00 Intake Total 480 ml 850 ml 1488 ml Balance 480 ml 850 ml 1488 ml Intake Oral 480 ml 600 ml 240 ml IV Total 250 ml 1248 ml # Voids 3 8 5 2 # Bowel Movements 0 1 Physical Exam GENERAL: In NAD SKIN: Warm and dry. HEAD: Normocephalic. EYES: No scleral icterus. No injection or drainage. NECK: Supple, trachea midline. No JVD or lymphadenopathy. CARDIOVASCULAR: Regular rate and rhythm without murmurs, gallops, or rubs. RESPIRATORY: Breath sounds equal bilaterally. No accessory muscle use. GASTROINTESTINAL: Abdomen soft, non-tender, nondistended. MUSCULOSKELETAL: No cyanosis, or edema. Imaging Last 24 hours Impressions Ankle X-Ray 11/14/17 0000 Signed Impressions: Service Date/Time: Tuesday, November 14, 2017 14:00 - CONCLUSION: Unremarkable examination of the right ankle. Valeriy Chapa MD Assessment and Plan Problem List: (1) Aortic valve endocarditis ICD Codes: I35.8 - Other nonrheumatic aortic valve disorders (2) CVA (cerebral vascular accident) ICD Codes: I63.9 - Cerebral infarction, unspecified (3) Severe sepsis ICD Codes: A41.9 - Sepsis, unspecified organism; R65.20 - Severe sepsis without septic shock Status: Acute (4) Tobacco abuse ICD Codes: Z72.0 - Tobacco use (5) Cocaine abuse ICD Codes: F14.10 - Cocaine abuse, uncomplicated Assessment and Plan No new cardiac issues. Continue tx for AV endocarditis as per ID. No need for NOHELIA at this time, since TTE shows AV vegetation. Pt has h/o noncompliance. Increase activity, PT. Leslie Rg MD Nov 14, 2017 14:52
[2017-11-14 15:30] LABS: AUTOMATED NEUTROPHIL # 8.5 TH/MM3 (1.8-7.7); BASOPHIL # 0.1 TH/MM3 (0-0.2); BASOPHIL % 0.6 % (0.0-2.0); EOSINOPHIL # 0.2 TH/MM3 (0-0.4); EOSINOPHIL % 1.4 % (0.0-4.0); HEMATOCRIT 25.4 % (39.0-51.0); HEMOGLOBIN 8.7 GM/DL (13.0-17.0); LYMPH % 16.4 % (9.0-44.0); MEAN CELL VOLUME 84.2 FL (80.0-100.0); MEAN CORPUSCULAR HEMOGLOBIN 28.9 PG (27.0-34.0); MEAN CORPUSCULAR HGB CONC 34.3 % (32.0-36.0); MEAN PLATELET VOLUME 7.9 FL (7.0-11.0); MONOCYTE # 1.5 TH/MM3 (0-0.9); NEUT % 69.6 % (16.0-70.0); PLATELET COUNT 350 TH/MM3 (150-450); RED BLOOD COUNT 3.02 MIL/MM3 (4.50-5.90); RED CELL DISTRIBUTION WIDTH 15.8 % (11.6-17.2); WHITE BLOOD COUNT 12.2 TH/MM3 (4.0-11.0)
[2017-11-14 16:01] LABS: ALT (GPT) 51 U/L (12-78); AST (GOT) 27 U/L (15-37); BICARBONATE 24.1 MEQ/L (21.0-32.0); BLOOD UREA NITROGEN 12 MG/DL (7-18); CALCIUM 7.8 MG/DL (8.5-10.1); CHLORIDE 108 MEQ/L (98-107); CREATININE 0.92 MG/DL (0.60-1.30); GLOMERULAR FILTRATION RATE 87 ML/MIN (>89); GLUCOSE,RANDOM 102 MG/DL (74-106); MAGNESIUM 1.9 MG/DL (1.5-2.5); SODIUM (NA) 138 MEQ/L (136-145)
[2017-11-14 16:04] LABS: ALKALINE PHOSPHATASE 90 U/L (45-117); TOTAL BILIRUBIN ADULT 0.3 MG/DL (0.2-1.0); TOTAL PROTEIN 6.2 GM/DL (6.4-8.2)
[2017-11-14 17:56] VITALS: O2SAT 95
[2017-11-14 20:00] VITALS: BP_SYST 106; BP_SYST 158; BP_DIAS 47; BP_DIAS 91; PULSE 62; PULSE 93; RESP 15; TEMP 97.2; TEMP 99.5; O2SAT 96; O2SAT 97
[2017-11-15] VITALS: BP 96/50; PULSE 95; RESP 14; TEMP 99.7; O2SAT 94
[2017-11-15] MEDS: SODIUM CHLOR 0.9% 1000 ML INJ 1,000 ML IV SCH ×2 (04:07→13:07)
[2017-11-15] MEDS: CEFEPIME INJ 2,000 MG in SODIUM CHLORIDE 0.9% INJ 100 ML IV SCH ×3 (06:07→21:34)
[2017-11-15] MEDS: HEPARIN SODIUM - SQ 10,000 UNITS/ML VIAL SQ SCH ×3 (06:07→21:34)
[2017-11-15 07:15] LABS: AUTOMATED NEUTROPHIL # 8.7 TH/MM3 (1.8-7.7); BASOPHIL # 0.1 TH/MM3 (0-0.2); BASOPHIL % 0.8 % (0.0-2.0); EOSINOPHIL # 0.2 TH/MM3 (0-0.4); EOSINOPHIL % 1.8 % (0.0-4.0); HEMATOCRIT 24.4 % (39.0-51.0); HEMOGLOBIN 8.2 GM/DL (13.0-17.0); LYMPH % 17.7 % (9.0-44.0); LYMPHOCYTE # 2.2 TH/MM3 (1.0-4.8); MEAN CELL VOLUME 82.7 FL (80.0-100.0); MEAN CORPUSCULAR HEMOGLOBIN 27.8 PG (27.0-34.0); MEAN CORPUSCULAR HGB CONC 33.7 % (32.0-36.0); MEAN PLATELET VOLUME 7.9 FL (7.0-11.0); MONO % 10.1 % (0.0-8.0); MONOCYTE # 1.3 TH/MM3 (0-0.9); NEUT % 69.6 % (16.0-70.0); PLATELET COUNT 407 TH/MM3 (150-450); RED BLOOD COUNT 2.95 MIL/MM3 (4.50-5.90); RED CELL DISTRIBUTION WIDTH 15.9 % (11.6-17.2); WHITE BLOOD COUNT 12.5 TH/MM3 (4.0-11.0)
[2017-11-15 07:47] LABS: BICARBONATE 23.9 MEQ/L (21.0-32.0); CREATININE 0.85 MG/DL (0.60-1.30)
[2017-11-15 08:00] VITALS: BP 128/58; PULSE 93; RESP 18; TEMP 98.1; O2SAT 97
[2017-11-15] MEDS: MUPIROCIN 2% OINT 1 APPLIC/GM SYR NASAL SCH ×3 (09:00→21:31)
[2017-11-15] MEDS: DOCUSATE SODIUM 50 MG/SENNA 8.6 MG TAB PO SCH ×2 (10:53→21:30)
[2017-11-15] MEDS: SODIUM CHLORIDE 0.9% FLUSH 10 ML FLUSH IV FLUSH SCH ×2 (10:53→21:31)
[2017-11-15] MEDS: AMPICILLIN INJ 2,000 MG in SODIUM CHLORIDE 0.9% INJ 100 ML IV SCH ×4 (10:57→21:30)
[2017-11-15 12:00] VITALS: BP 116/48; PULSE 87; RESP 18; TEMP 97.3; O2SAT 97
[2017-11-15] MEDS: SODIUM CHLORIDE 0.9% FLUSH 10 ML FLUSH IV FLUSH PRN ×3 (13:08→17:31)
--- NOTE | 2017-11-15 13:21 | HHI.IDPN ---
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 Patient has expressive as well as possible receptive aphasia as a result of that. His mother reports he lives with her. He does go out of the home to meet friends. To the best of her knowledge he does not do drugs but she would not be surprised if he did. She reported he had complained of sweating and left side weakness with fever 103 F associated with chills. He denies any pain. He reports cough with phlegm. He denies any N/V or diarrhea. He was seen by Neuro and it appears he is non compliant with medications including aspirin prescribed last admission. Last admission patient was treated for endocarditis possibly per mother. Patient was sepsis and workup revealed Gram neg bacteremia and ID was consulted due to suspicion of endocarditis. 2D ECHO pending. Overnight events reviewed Fevers defervesced BP better. More awake UO ok. No rash No diarrhea Antibiotics Cefepime IV Vanco IV Lines Line sites with no e.o infection Past Medical History reviewed Allergies: Coded Allergies: No Known Allergies (Verified Allergy, Unknown, 11/10/17) Objective . Vital Signs Date Time Temp Pulse Resp B/P (MAP) Pulse Ox O2 Delivery O2 Flow Rate FiO2 11/15/17 12:00 97.3 87 18 116/48 (70) 97 11/15/17 08:00 98.1 93 18 128/58 (81) 97 11/15/17 00:00 99.7 95 14 96/50 (65) 94 11/14/17 20:00 99.5 93 15 106/47 (66) 97 11/14/17 17:56 95 21 11/14/17 13:52 95 . Laboratory Tests Test 11/14/17 15:08 11/15/17 06:04 White Blood Count 12.2 TH/MM3 12.5 TH/MM3 Red Blood Count 3.02 MIL/MM3 2.95 MIL/MM3 Hemoglobin 8.7 GM/DL 8.2 GM/DL Hematocrit 25.4 % 24.4 % Mean Corpuscular Volume 84.2 FL 82.7 FL Mean Corpuscular Hemoglobin 28.9 PG 27.8 PG Mean Corpuscular Hemoglobin Concent 34.3 % 33.7 % Red Cell Distribution Width 15.8 % 15.9 % Platelet Count 350 TH/MM3 407 TH/MM3 Mean Platelet Volume 7.9 FL 7.9 FL Neutrophils (%) (Auto) 69.6 % 69.6 % Lymphocytes (%) (Auto) 16.4 % 17.7 % Monocytes (%) (Auto) 12.0 % 10.1 % Eosinophils (%) (Auto) 1.4 % 1.8 % Basophils (%) (Auto) 0.6 % 0.8 % Neutrophils # (Auto) 8.5 TH/MM3 8.7 TH/MM3 Lymphocytes # (Auto) 2.0 TH/MM3 2.2 TH/MM3 Monocytes # (Auto) 1.5 TH/MM3 1.3 TH/MM3 Eosinophils # (Auto) 0.2 TH/MM3 0.2 TH/MM3 Basophils # (Auto) 0.1 TH/MM3 0.1 TH/MM3 CBC Comment DIFF FINAL DIFF FINAL Differential Comment Laboratory Tests Test 11/14/17 15:08 11/15/17 06:04 Blood Urea Nitrogen 12 MG/DL 9 MG/DL Creatinine 0.92 MG/DL 0.85 MG/DL Random Glucose 102 MG/DL 96 MG/DL Total Protein 6.2 GM/DL Albumin 2.0 GM/DL Calcium Level 7.8 MG/DL 8.0 MG/DL Phosphorus Level 3.0 MG/DL Magnesium Level 1.9 MG/DL Alkaline Phosphatase 90 U/L Aspartate Amino Transf (AST/SGOT) 27 U/L Alanine Aminotransferase (ALT/SGPT) 51 U/L Total Bilirubin 0.3 MG/DL Sodium Level 138 MEQ/L 140 MEQ/L Potassium Level 3.9 MEQ/L 3.5 MEQ/L Chloride Level 108 MEQ/L 108 MEQ/L Carbon Dioxide Level 24.1 MEQ/L 23.9 MEQ/L Anion Gap 6 MEQ/L 8 MEQ/L Estimat Glomerular Filtration Rate 87 ML/MIN 95 ML/MIN Microbiology Date/Time Source Procedure Growth Status 11/13/17 05:45 Blood Peripheral Aerobic Blood Culture - Preliminary NO GROWTH IN 2 DAYS Resulted 11/13/17 05:45 Blood Peripheral Anaerobic Blood Culture - Preliminary NO GROWTH IN 2 DAYS Resulted 11/13/17 05:33 Blood Peripheral Aerobic Blood Culture - Preliminary NO GROWTH IN 2 DAYS Resulted 11/13/17 05:33 Blood Peripheral Anaerobic Blood Culture - Preliminary NO GROWTH IN 2 DAYS Resulted Imaging Last Impressions Head CT 11/10/17 1036 Signed Impressions: Service Date/Time: Friday, November 10, 2017 12:16 - CONCLUSION: There is abnormal low density, likely representing cytotoxic edema, in the left frontal lobe. This very likely is related to a recent ischemic event. Reji Dasilva MD Chest X-Ray 11/10/17 1036 Signed Impressions: Service Date/Time: Friday, November 10, 2017 10:54 - CONCLUSION: No acute cardiopulmonary process. Kirby Trejo MD Liver Ultrasound 11/10/17 0000 Signed Impressions: Service Date/Time: Friday, November 10, 2017 14:47 - CONCLUSION: 1. Liver and spleen are both enlarged with multiple diffuse hepatic fatty infiltration. 2. Linear echogenic area within the lateral mid body of the spleen may represent a focal area of scarring. 3. Benign renal cortical cysts of the right kidney. 4. Small 3 mm gallbladder polyp. Gallbladder is otherwise sonographically normal. Kirby Trejo MD Brain MRI 11/10/17 0000 Signed Impressions: Service Date/Time: Friday, November 10, 2017 20:51 - CONCLUSION: The eighth of diminished attenuation involving the left frontoparietal junction on the patient's prior CT examination corresponds to acute infarction in addition to multiple other areas of new acute infarction bilaterally not present on the prior MRI dated 09/10/2017 and previously seen acute infarctions on the right side on that study have been evolved. Findings were discussed with the patient's nurse Chandan on 11/10/2017 9:19 PM. Fernanda Padilla MD Physical Exam GENERAL: This is a well-nourished, well-developed patient, in no apparent distress. SKIN: No rashes, ecchymoses or lesions. Cool and dry. HEAD: Atraumatic. Normocephalic. No temporal or scalp tenderness. EYES: Pupils equal round and reactive. Extraocular motions intact. No scleral icterus. No injection or drainage. ENT: Nose without bleeding, purulent drainage or septal hematoma. Throat without erythema, tonsillar hypertrophy or exudate. Uvula midline. Airway patent. NECK: Trachea midline. Supple, nontender, no meningeal signs. CARDIOVASCULAR: HS audible. RESPIRATORY: Clear to auscultation. Breath sounds equal bilaterally. No wheezes , rales, or rhonchi. GASTROINTESTINAL: Abdomen soft, non-tender, nondistended. MUSCULOSKELETAL: Extremities without clubbing, cyanosis, or edema. NEUROLOGICAL: Awake and alert. Cranial nerves II through XII intact. Expressive and receptive aphasia Psych cooperative IV line sites with no e.o infection. Assessment & Plan Remarks Sepsis Aortic valve Endocarditis Pseudomonas bacteremia [place]dez sensitive Enterococcus faecalis bacteremia Cerebral stroke (multiple embolic episodes likely microabscesses) h/o cocaine abuse h/o stroke in Aug 2017. New Left frontal infarct likely septic emboli related vs stroke from other risk factors. 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 toni Rico: have Mom who patient has been living with to be present for a meeting to help come with a discharge plan. Follow cultures Follow clinically Jacinda Brock MD Nov 15, 2017 13:21
--- NOTE | 2017-11-15 15:37 | HHI.PR ---
Subjective Remarks 52 years old male with H/O CVA last August presented to the ED with transitional change in mental status not being able to verbalize words patient seems to be able to understand words however he cannot answer verbally which is consistent with expressive aphasia he said he has been having sweating since last night started with a weakness on his left side, there was a fever of 103 with positive chills, patient denied any pain, he reported cough with no significant phlegm, he denied any diarrhea abdominal pain nausea vomiting or dysuria As mentioned above patient had multiple bilateral small ischemic stroke in August 2017 he was seen by neurologist and sent home on baby aspirin 2 tablets In the previous admission there was a concern for right heart endocarditis however NOHELIA did not reveal any vegetation 2-15 SEEN IN ICU QUITE APHASIC PASSED SWALLOW EVAL NEEDS ECHO- MAY NEED NOHELIA DW RN AND PT OK FOR OUT OF ICU 2-16 PATIENT HAD ECHO WILL NOT NEED A NOHELIA DUE TO ABNORMAL VALVE NO NEW COMPLAINTS DW RN AND PT INCREASE ACTIVITY. 2-17 POSITIVE BLOOD CULTURES WILL NEED CORRECTION ANTIBIOTICS REMAINS APHASIC 2-18 Patient seen and examined this morning. Afebrile vital signs stable. Difficult to communicate due to patient's current aphasia. Does report that he is having some pain and swelling of the right ankle. Unaware of any injury to the right ankle. We will get imaging of the right ankle. Understands that he is to continue IV antibiotics due to the endocarditis. He is willing to give 1 week in this hospital and then he will leave regardless of medical advice. 2-19 WILL NEED CORRECTION ANTIBIOTICS FOR ENDOCARDITIS TREATMENT ID TO COME UP WITH SENIOR LIVING PLAN DW RN AND PT Sepsis Aortic valve Endocarditis AMPICILLIN AND CEFEPIME Pseudomonas bacteremia CEFEPIME Valdez sensitive Enterococcus faecalis bacteremia AMPICILLIN h/o cocaine abuse h/o stroke in Aug 2017. NEEDS SPEECH EVAL FOR APHASIA Objective Vitals Vital Signs Date Time Temp Pulse Resp B/P (MAP) Pulse Ox O2 Delivery O2 Flow Rate FiO2 11/15/17 12:00 97.3 87 18 116/48 (70) 97 11/15/17 08:00 98.1 93 18 128/58 (81) 97 11/15/17 00:00 99.7 95 14 96/50 (65) 94 11/14/17 20:00 99.5 93 15 106/47 (66) 97 11/14/17 17:56 95 21 I/O 2/11/14/17 11/14/17 11/15/17 11/15/17 11/15/17 07:00 15:00 23:00 07:00 15:00 23:00 Intake Total 1488 ml 1850 ml 240 ml Output Total 500 ml Balance 1488 ml 1350 ml 240 ml Intake Oral 240 ml 600 ml 240 ml IV Total 1248 ml 1250 ml Output Urine Total 500 ml # Voids 2 8 2 2 # Bowel Movements 1 0 Result Diagram: 11/15/17 0604 11/15/17 0604 Other Results Laboratory Tests Test 11/12/17 23:50 11/13/17 05:33 11/14/17 15:08 11/15/17 06:04 Vancomycin Level Trough 8.7 MCG/ML White Blood Count 13.0 TH/MM3 12.2 TH/MM3 12.5 TH/MM3 Red Blood Count 3.05 MIL/MM3 3.02 MIL/MM3 2.95 MIL/MM3 Hemoglobin 8.4 GM/DL 8.7 GM/DL 8.2 GM/DL Hematocrit 25.3 % 25.4 % 24.4 % Mean Corpuscular Volume 83.0 FL 84.2 FL 82.7 FL Mean Corpuscular Hemoglobin 27.5 PG 28.9 PG 27.8 PG Mean Corpuscular Hemoglobin Concent 33.2 % 34.3 % 33.7 % Red Cell Distribution Width 16.2 % 15.8 % 15.9 % Platelet Count 255 TH/MM3 350 TH/MM3 407 TH/MM3 Mean Platelet Volume 8.4 FL 7.9 FL 7.9 FL Neutrophils (%) (Auto) 73.1 % 69.6 % 69.6 % Lymphocytes (%) (Auto) 14.8 % 16.4 % 17.7 % Monocytes (%) (Auto) 10.7 % 12.0 % 10.1 % Eosinophils (%) (Auto) 1.0 % 1.4 % 1.8 % Basophils (%) (Auto) 0.4 % 0.6 % 0.8 % Neutrophils # (Auto) 9.5 TH/MM3 8.5 TH/MM3 8.7 TH/MM3 Lymphocytes # (Auto) 1.9 TH/MM3 2.0 TH/MM3 2.2 TH/MM3 Monocytes # (Auto) 1.4 TH/MM3 1.5 TH/MM3 1.3 TH/MM3 Eosinophils # (Auto) 0.1 TH/MM3 0.2 TH/MM3 0.2 TH/MM3 Basophils # (Auto) 0.0 TH/MM3 0.1 TH/MM3 0.1 TH/MM3 CBC Comment DIFF FINAL DIFF FINAL DIFF FINAL Differential Comment Blood Urea Nitrogen 15 MG/DL 12 MG/DL 9 MG/DL Creatinine 0.86 MG/DL 0.92 MG/DL 0.85 MG/DL Random Glucose 104 MG/DL 102 MG/DL 96 MG/DL Total Protein 6.0 GM/DL 6.2 GM/DL Albumin 2.0 GM/DL 2.0 GM/DL Calcium Level 7.9 MG/DL 7.8 MG/DL 8.0 MG/DL Phosphorus Level 2.6 MG/DL 3.0 MG/DL Magnesium Level 1.9 MG/DL 1.9 MG/DL Alkaline Phosphatase 98 U/L 90 U/L Aspartate Amino Transf (AST/SGOT) 36 U/L 27 U/L Alanine Aminotransferase (ALT/SGPT) 67 U/L 51 U/L Total Bilirubin 0.6 MG/DL 0.3 MG/DL Sodium Level 138 MEQ/L 138 MEQ/L 140 MEQ/L Potassium Level 3.7 MEQ/L 3.9 MEQ/L 3.5 MEQ/L Chloride Level 109 MEQ/L 108 MEQ/L 108 MEQ/L Carbon Dioxide Level 20.2 MEQ/L 24.1 MEQ/L 23.9 MEQ/L Anion Gap 9 MEQ/L 6 MEQ/L 8 MEQ/L Estimat Glomerular Filtration Rate 94 ML/MIN 87 ML/MIN 95 ML/MIN Imaging Last Impressions Ankle X-Ray 11/14/17 0000 Signed Impressions: Service Date/Time: Tuesday, November 14, 2017 14:00 - CONCLUSION: Unremarkable examination of the right ankle. Valeriy Chapa MD Head CT 11/10/17 1036 Signed Impressions: Service Date/Time: Friday, November 10, 2017 12:16 - CONCLUSION: There is abnormal low density, likely representing cytotoxic edema, in the left frontal lobe. This very likely is related to a recent ischemic event. Reji Dasilva MD Chest X-Ray 11/10/17 1036 Signed Impressions: Service Date/Time: Friday, November 10, 2017 10:54 - CONCLUSION: No acute cardiopulmonary process. Kirby Trejo MD Liver Ultrasound 2/14/18 0000 Signed Impressions: Service Date/Time: Friday, November 10, 2017 14:47 - CONCLUSION: 1. Liver and spleen are both enlarged with multiple diffuse hepatic fatty infiltration. 2. Linear echogenic area within the lateral mid body of the spleen may represent a focal area of scarring. 3. Benign renal cortical cysts of the right kidney. 4. Small 3 mm gallbladder polyp. Gallbladder is otherwise sonographically normal. Kirby Trejo MD Brain MRI 11/10/17 0000 Signed Impressions: Service Date/Time: Friday, November 10, 2017 20:51 - CONCLUSION: The eighth of diminished attenuation involving the left frontoparietal junction on the patient's prior CT examination corresponds to acute infarction in addition to multiple other areas of new acute infarction bilaterally not present on the prior MRI dated 09/10/2017 and previously seen acute infarctions on the right side on that study have been evolved. Findings were discussed with the patient's nurse Chandan on 11/10/2017 9:19 PM. Fernanda Padilla MD Objective Remarks GENERAL: Alert talkative and cooperative quite aphasic not able to get all questions answered SKIN: Warm and dry. HEAD: Atraumatic. Normocephalic. EYES: Pupils equal and round. No scleral icterus. No injection or drainage. Extraocular muscles intact ENT: No nasal bleeding or discharge. Mucous membranes pink and moist. Tongue is midline NECK: Trachea midline. No JVD. Supple CARDIOVASCULAR: Regular rate and rhythm. S1 and S2 no S3 or S4 RESPIRATORY: No accessory muscle use. Clear to auscultation. Breath sounds equal bilaterally. GASTROINTESTINAL: Abdomen soft, non-tender, nondistended. Hepatic and splenic margins not palpable. MUSCULOSKELETAL: Extremities without clubbing, cyanosis, or edema. No obvious deformities. NEUROLOGICAL: Awake and alert. No obvious cranial nerve deficits. Motor grossly within normal limits. Five out of 5 muscle strength in the arms and legs. Normal speech. But very Aphasic not getting correct words out PSYCHIATRIC: INAppropriate mood and affect; insight and judgment abnormal. Medications and IVs Current Medications Vancomycin HCl 1000 mg/Sodium Chloride 250 ml @ 250 mls/hr ONCE STAT IV Last administered on 11/10/17at 13:21; Start 11/10/17 at 10:36; Stop 11/10/17 at 11:35 ; Status DC Cefepime HCl 2000 mg/Sodium Chloride 100 ml @ 200 mls/hr ONCE STAT IV Last administered on 11/10/17 11:18; Start 11/10/17 at 10:36; Stop 11/10/17 at 11:20 ; Status DC Sodium Chloride 1,000 ml @ 999 mls/hr BOLUS ONCE IV Last administered on 11/10at 11:20; Start 11/10/17 at 11:30; Stop 11/10/17 at 12:38; Status DC Acetaminophen (Tylenol Supp) 650 mg ONCE ONCE RECTAL Last administered on 11/10at 11:41; Start 11/10/17 at 11:30; Stop 11/10/17 at 11:31; Status DC Aspirin (Aspirin Supp) 300 mg ONCE ONCE RECTAL Last administered on 11/10/17at 13:21; Start 11/10/17 at 13:00; Stop 11/10/17 at 13:02; Status DC Sodium Chloride 1,000 ml @ 100 mls/hr Q10H IV Last administered on 11/14/17at 19:49; Start 11/10/17 at 14:07 Sodium Chloride (NS Flush) 2 ml UNSCH PRN IV FLUSH FLUSH AFTER USING IV ACCESS Last administered on 11/15/17 14:48; Start 11/10/17 at 14:15 Sodium Chloride (NS Flush) 2 ml BID IV FLUSH Last administered on 11/15/17 10: 53; Start 11/10/17 at 21:00 Heparin Sodium (Porcine) (Heparin Inj) 5,000 units Q8H SQ Last administered on 11/15/17at 13:13; Start 11/10/17 at 14:15 Naloxone HCl (Narcan Inj) 0.4 mg UNSCH PRN IV PUSH SEE LABEL COMMENTS; Start at 14:15 Senna/Docusate Sodium (Arabella-Colace) 1 tab BID PO Last administered on at 10:53; Start 11/10/17 at 21:00 Magnesium Hydroxide (Milk Of Magnesia Liq) 30 ml Q12H PRN PO Mild constipation ; Start 11/10/17 at 14:15 Sennosides (Senokot) 17.2 mg Q12H PRN PO Moderate constipation; Start 11/10/17 at 14:15 Bisacodyl (Dulcolax Supp) 10 mg DAILY PRN RECTAL SEVERE CONSITIPATION; Start at 14:15 Lactulose (Lactulose Liq) 30 ml DAILY PRN PO SEVERE CONSITIPATION; Start at 14:15 Sodium Chloride 1,000 ml @ 999 mls/hr BOLUS ONCE IV Last administered on 11/10at 16:40; Start 11/10/17 at 14:15; Stop 11/10/17 at 15:29; Status DC Sodium Chloride 1,000 ml @ 999 mls/hr BOLUS ONCE IV Last administered on 11/10at 17:40; Start 11/10/17 at 14:15; Stop 11/10/17 at 15:29; Status DC Sodium Chloride 1,000 ml @ 42 mls/hr [id number] IV ; Start 11/10/17 at 14:07; Stop 11/10/17 at 17:15; Status DC Sodium Chloride 1,000 ml @ 84 mls/hr [id number] IV ; Start 11/10/17 at 14:07; Stop 11/10/17 at 17:15; Status DC Sodium Chloride 1,000 ml @ 100 mls/hr Q10H IV ; Start 11/10/17 at 14:07; Stop 11/10/17 at 17:15; Status DC Sodium Chloride 1,000 ml @ 125 mls/hr Q8H IV ; Start 11/10/17 at 14:07; Stop at 17:16; Status DC Pharmacy Profile Note 0 ml @ 0 mls/hr UNSCH OTHER ; Start 11/10/17 at 14:15; Status Cancel Vancomycin HCl 1251 mg/Sodium Chloride 512.51 ml @ 250 mls/ hr Q12H IV ; Start 11/10/17 at 14:15; Status UNV Cefepime HCl 2000 mg/Sodium Chloride 100 ml @ 200 mls/hr Q8H IV Last administered on 11/15/17at 14:50; Start 11/10/17 at 14:15 Vancomycin HCl 750 mg/Sodium Chloride 257.5 ml @ 250 mls/hr ONCE ONCE IV Last administered on 11/10/17at 18:48; Start 11/10/17 at 16:00; Stop 11/10/17 at 17:01; Status DC Mupirocin (Bactroban Nasal 2% Oint) 1 applic BID NASAL Last administered on at 21:42; Start 11/10/17 at 21:00 Sodium Chloride 2,000 ml @ 999 mls/hr Q2H1M IV Last administered on 11/10/17at 17:45; Start 11/10/17 at 17:45; Stop 11/10/17 at 19:45; Status DC Vancomycin HCl 1250 mg/Sodium Chloride 262.5 ml @ 250 mls/hr Q18H IV Last administered on 11/13/17at 00:20; Start 11/11/17 at 12:00; Stop 11/13/17 at 10:56 ; Status DC Miscellaneous Information SPECIFIC LAB TO BE DRAWN:VANCOMYCIN TROUGH DATE TO... ONCE ONCE .XX Last administered on 11/12/17at 23:50; Start 11/12/17 at 23:45; Stop 11/12/17 at 23:46; Status DC Pharmacy Profile Note 0 ml @ 0 mls/hr UNSCH OTHER ; Start 11/11/17 at 15:30; Stop 11/15/17 at 08:10; Status DC Vancomycin HCl 1250 mg/Sodium Chloride 262.5 ml @ 250 mls/hr Q12H IV ; Start at 14:00; Stop 11/13/17 at 19:19; Status DC Vancomycin HCl 1250 mg/Sodium Chloride 262.5 ml @ 250 mls/hr Q12H IV Last administered on 11/14/17at 19:49; Start 11/13/17 at 20:00; Stop 11/15/17 at 08:10 ; Status DC Ampicillin Sodium 2000 mg/Sodium Chloride 100 ml @ 400 mls/hr Q4H IV Last administered on 11/15/17at 13:08; Start 11/15/17 at 09:00 A/P Problem List: (1) Bacteremia ICD Code: R78.81 - Bacteremia (2) UTI (urinary tract infection) ICD Code: N39.0 - Urinary tract infection, site not specified (3) CVA (cerebral vascular accident) ICD Code: I63.9 - Cerebral infarction, unspecified (4) Cocaine abuse ICD Code: F14.10 - Cocaine abuse, uncomplicated (5) Aortic valve endocarditis ICD Code: I35.8 - Other nonrheumatic aortic valve disorders Assessment and Plan 52 years old male with history of cocaine abuse and recent CVA presented with Disorientation/expressive aphasia due to left frontoparietal ischemic stroke shown on MRI of the brain SUSPECT DUE TO AORTIC VALVE ENDOCARDITIS History of recent bilateral parietal ischemia in August 2017, with concern at that time for right heart with endocarditis/bacteremia--AORTIC VALVE ENDOCARDITIS Suspect sepsis with febrile illness 103, tachycardia hypotension, leukocytosis with bandemia and left shift, lactic acidosis>> still unknown source of infection, chest x-ray unremarkable, awaiting UA-possibly mildly positive-- AORTIC VALVE ENDOCARDITIS Lactic acidosis Dehydration improving with fluids REGIS on possible CKD improving with fluids Increased transaminases with alk phos seems to be chronic from previous admission Acute non-anion gap metabolic acidosis DVT prophylaxis AORTIC VALVE ENDOCARDITIS Sepsis Aortic valve Endocarditis AMPICILLIN AND CEFEPIME Pseudomonas bacteremia CEFEPIME Valdez sensitive Enterococcus faecalis bacteremia AMPICILLIN h/o cocaine abuse h/o stroke in Aug 2017. Plan: transferred out of ICU bed is available MRI/MRA, ultrasound of the carotid, 2D echo has been DONE CT and MRI of the head personally reviewed by me Started on broad-spectrum antibiotics cefepime and AMPICILLIN Consult neurology-DONE Aggressive hydration with normal saline Strict I AND OS Monitor BMP, lactic acid Liver ultrasound with hepatitis panel ID consultation in light of previous suspicion for bacteremia and right heart endocarditis -AORTIC VALVE ENDOCARDITIS AM LABS PT AND OT AND ST ECHO ABNORMAL NO NEED FOR NOHELIA AORTIC VALVE ENDOCARDITIS Sepsis Aortic valve Endocarditis AMPICILLIN AND CEFEPIME Pseudomonas bacteremia CEFEPIME Valdez sensitive Enterococcus faecalis bacteremia AMPICILLIN h/o cocaine abuse h/o stroke in Aug 2017. Discharge Planning PENDING COMPLETE ID WORK UP AND SET UP FOR SENIOR LIVING ANTIBIOTICS Ramakrishna Borrego DO Nov 15, 2017 15:37
[2017-11-15 16:00] VITALS: BP 114/48; PULSE 92; RESP 18; TEMP 97.8; O2SAT 98
[2017-11-15 21:20] VITALS: BP 124/58; PULSE 93; RESP 18; TEMP 98.7; O2SAT 96
[2017-11-15 23:30] VITALS: BP 114/54; PULSE 94; RESP 18; TEMP 98.8; O2SAT 96
[2017-11-16] MEDS: SODIUM CHLOR 0.9% 1000 ML INJ 1,000 ML IV SCH ×3 (00:07→20:07)
[2017-11-16] MEDS: AMPICILLIN INJ 2,000 MG in SODIUM CHLORIDE 0.9% INJ 100 ML IV SCH ×6 (01:52→21:38)
[2017-11-16] MEDS: HEPARIN SODIUM - SQ 10,000 UNITS/ML VIAL SQ SCH ×3 (05:57→23:07)
[2017-11-16] MEDS: CEFEPIME INJ 2,000 MG in SODIUM CHLORIDE 0.9% INJ 100 ML IV SCH ×3 (06:00→23:06)
[2017-11-16 07:55] VITALS: BP 125/58; PULSE 87; RESP 18; TEMP 97.4; O2SAT 99
[2017-11-16] MEDS: SODIUM CHLORIDE 0.9% FLUSH 10 ML FLUSH IV FLUSH SCH ×2 (08:28→21:36)
[2017-11-16] MEDS: DOCUSATE SODIUM 50 MG/SENNA 8.6 MG TAB PO SCH ×2 (08:28→21:00)
[2017-11-16] MEDS: MUPIROCIN 2% OINT 1 APPLIC/GM SYR NASAL SCH ×2 (08:32→21:00)
[2017-11-16] MEDS ORDERED: DIATRIZOATE MEGLUM/DIATRIZOATE SOD 9 ML CUP PO ONE (09:15)
[2017-11-16 10:20] VITALS: O2SAT 98
--- NOTE | 2017-11-16 11:33 | HHI.PR ---
Subjective Remarks 52 years old male with H/O CVA last August presented to the ED with transitional change in mental status not being able to verbalize words patient seems to be able to understand words however he cannot answer verbally which is consistent with expressive aphasia he said he has been having sweating since last night started with a weakness on his left side, there was a fever of 103 with positive chills, patient denied any pain, he reported cough with no significant phlegm, he denied any diarrhea abdominal pain nausea vomiting or dysuria As mentioned above patient had multiple bilateral small ischemic stroke in August 2017 he was seen by neurologist and sent home on baby aspirin 2 tablets In the previous admission there was a concern for right heart endocarditis however NOHELIA did not reveal any vegetation 2-15 SEEN IN ICU QUITE APHASIC PASSED SWALLOW EVAL NEEDS ECHO- MAY NEED NOHELIA DW RN AND PT OK FOR OUT OF ICU 2-16 PATIENT HAD ECHO WILL NOT NEED A NOHELIA DUE TO ABNORMAL VALVE NO NEW COMPLAINTS DW RN AND PT INCREASE ACTIVITY. 2-17 POSITIVE BLOOD CULTURES WILL NEED CORRECTION ANTIBIOTICS REMAINS APHASIC 2-18 Patient seen and examined this morning. Afebrile vital signs stable. Difficult to communicate due to patient's current aphasia. Does report that he is having some pain and swelling of the right ankle. Unaware of any injury to the right ankle. We will get imaging of the right ankle. Understands that he is to continue IV antibiotics due to the endocarditis. He is willing to give 1 week in this hospital and then he will leave regardless of medical advice. 2-19 WILL NEED COPIER TECHNICIAN ANTIBIOTICS FOR ENDOCARDITIS TREATMENT ID TO COME UP WITH [facility] PLAN DW RN AND PT //Sepsis //Aortic valve Endocarditis AMPICILLIN AND CEFEPIME //Pseudomonas bacteremia CEFEPIME //Valdez sensitive Enterococcus faecalis bacteremia AMPICILLIN //h/o cocaine abuse //h/o stroke in Aug 2017. NEEDS SPEECH EVAL FOR APHASIA = 11/16. Patient says he is feeling fatigued as yesterday. Reports right lower extremity ankle and foot pain. Objective Vital Signs Date Time Temp Pulse Resp B/P (MAP) Pulse Ox O2 Delivery O2 Flow Rate FiO2 11/16/17 07:55 97.4 87 18 125/58 (80) 99 11/15/17 23:30 98.8 94 18 114/54 (74) 96 11/15/17 21:20 98.7 93 18 124/58 (80) 96 11/15/17 16:00 97.8 92 18 114/48 (70) 98 11/15/17 12:00 97.3 87 18 116/48 (70) 97 I/O 11/15/17 11/15/17 11/15/17 11/16/17 11/16/17 11/16/17 07:00 15:00 23:00 07:00 15:00 23:00 Intake Total 240 ml 960 ml 480 ml 360 ml Balance 240 ml 960 ml 480 ml 360 ml Intake Oral 240 ml 960 ml 480 ml 360 ml # Voids 2 4 3 2 # Bowel Movements 0 2 0 0 Result Diagram: 11/15/17 0604 11/15/17 0604 Objective Remarks GENERAL: Patient lying in bed. Appears comfortable. SKIN: Warm and dry. HEAD: Normocephalic. EYES: No scleral icterus. No injection or drainage. NECK: Supple, trachea midline. No JVD or lymphadenopathy. CARDIOVASCULAR: Regular rate and rhythm without murmurs, gallops, or rubs. RESPIRATORY: Breath sounds equal bilaterally. No accessory muscle use. GASTROINTESTINAL: Abdomen soft, non-tender, nondistended. MUSCULOSKELETAL: No cyanosis. 1+ edema on the right lower extremity. No erythema. Is tender to palpation. No broken skin BACK: Nontender without obvious deformity. No CVA tenderness. A/P Assessment and Plan 52 years old male with history of cocaine abuse and recent CVA presented with Aortic Valve Endocarditis //AORTIC VALVE ENDOCARDITIS =MRI/MRA, ultrasound of the carotid, 2D echo has been DONE Continue on broad-spectrum antibiotics as per infectious disease Consult neurology=- has signed off- = infectious disease managing. Continue antibiotics as per infectious disease. CT chest today pending. //Steatosis on liver US -10/29 etoh. f/u PCP //Swollen Ankle -xray negative for acute process Still with swelling. We will check Doppler right lower extremity. DVT prophylaxis Discharge Planning Continues on IV antibiotics for bacteremia Pending infectious disease clearance. Patient is self-pay. Expect it will be some time Haresh Mcghee MD Nov 16, 2017 11:32
[2017-11-16 11:39] VITALS: BP 116/56; PULSE 87; RESP 17; TEMP 98.1; O2SAT 97
[2017-11-16] MEDS ORDERED: IOHEXOL 350 MG/ML 10 ML VIAL (for RAD DIAG) IVCONTRAST ONE (13:12)
--- NOTE | 2017-11-16 13:33 | RADRPT ---
EXAM DATE/TIME: 11/16/2017 12:55 [facility] COMPARISON: No previous studies available for comparison. INDICATIONS : Septic emboli IV CONTRAST: 96 cc Omnipaque 350 (iohexol) IV ; Cumulative dose for multiple exams. RADIATION DOSE: 5.03 CTDIvol (mGy) ; Combined studies - Thorax/Abdomen/Pelvis MEDICAL HISTORY : Stroke. Aortic valve endocarditis SURGICAL HISTORY : None. ENCOUNTER: Initial ACUITY: 2 days PAIN SCALE: 5/10 LOCATION: Bilateral chest TECHNIQUE: Volumetric scanning of the chest was performed. Using automated exposure control and adjustment of t he mA and/or kV according to patient size, radiation dose was kept as low as reasonably achievable to obtain optimal diagnostic quality images. DICOM format image data is available electronically for review and comparison. Follow-up recommendations for detected pulmonary nodules are based at a minimum on nodule size and pa tient risk factors according to Fleischner Society Guidelines. FINDINGS: LUNGS: Mild airspace consolidation adjacent to the pleural fluid at the lung bases. PLEURA: Trace right and small left pleural effusions which appear simple in density. MEDIASTINUM: The heart and great vessels demonstrate no acute abnormality. Eccentric aortic valve calcifications. There is no mediastinal or hilar lymphadenopathy. AXILLAE: Within normal limits. No lymphadenopathy. SKELETAL: Within normal limits for patient age. MISCELLANEOUS: Wedge shaped defects in the visualized portions of the spleen. CONCLUSION: 1. Trace right and small left pleural effusions with associated airspace consolidation at the lung ba ses. Differential considerations include aspiration or pneumonia with reactive effusions versus pleur al effusions with compressive atelectasis. 2. Partially imaged right shaped defects in the azygous portions of the spleen which may reflect sple tamera infarcts. 3. Eccentric aortic valve calcifications consistent with prior history of aortic valve endocarditis. Russell Jose MD on November 16, 2017 at 13:26 Board Certified Radiologist. This report was verified electronically.
--- NOTE | 2017-11-16 13:46 | RADRPT ---
EXAM DATE/TIME: 11/16/2017 12:57 [facility] COMPARISON: CT ABDOMEN & PELVIS W CONTRAST, September 21, 2017, 13:10. INDICATIONS : Sepsis IV CONTRAST: 96 cc Omnipaque 350 (iohexol) IV ; Cumulative dose for multiple exams. ORAL CONTRAST: No oral contrast ingested. RADIATION DOSE: 5.25 CTDIvol (mGy) ; Combined studies - Thorax/Abdomen/Pelvis MEDICAL HISTORY : Stroke. Aortic valve endocarditis SURGICAL HISTORY : None. ENCOUNTER: Initial ACUITY: 1 day PAIN SCALE: 6/10 LOCATION: Bilateral Abdomen TECHNIQUE: Volumetric scanning of the abdomen and pelvis was performed. Using automated exposure control and ad justment of the mA and/or kV according to patient size, radiation dose was kept as low as reasonably achievable to obtain optimal diagnostic quality images. DICOM format image data is available electro nically for review and comparison. FINDINGS: LIVER: Homogeneous density without lesion. There is no dilation of the biliary tree. No calcified gallston es. SPLEEN: Wedge shaped defects in the spleen consistent with splenic infarcts. These appear overall stable PANCREAS: Within normal limits. KIDNEYS: Stable wedge shaped defects in the kidneys bilaterally most prominently in the mid right renal pole, also consistent with infarcts. ADRENAL GLANDS: Within normal limits. VASCULAR: Atherosclerotic calcifications of the abdomen aorta without aneurysm. BOWEL/MESENTERY: The stomach, small bowel, and colon demonstrate no acute abnormality. There is no free intraperitone al air or fluid. ABDOMINAL WALL: Within normal limits. RETROPERITONEUM: There is no lymphadenopathy. BLADDER: No wall thickening or mass. REPRODUCTIVE: Within normal limits. INGUINAL: There is no lymphadenopathy or hernia. MUSCULOSKELETAL: Within normal limits for patient age. CONCLUSION: 1. Stable probable embolic splenic and renal infarcts. 2. No acute abnormality or significant interval change. Specifically, no evidence for drainable absce ss in the abdomen. Russell Jose MD on November 16, 2017 at 13:31 Board Certified Radiologist. This report was verified electronically.
--- NOTE | 2017-11-16 15:10 | RADRPT ---
EXAM DATE/TIME: 11/16/2017 14:41 [facility] COMPARISON: No previous studies available for comparison. INDICATIONS : Right leg swelling. MEDICAL HISTORY : CVA. Tobacco use. SURGICAL HISTORY : Right hand surgery. ENCOUNTER: Initial ACUITY: 1 day PAIN SCORE: 3/10 LOCATION: Right leg. TECHNIQUE: Venous ultrasound of the leg was performed from the inguinal ligament to the proximal calf. Real-dulce e, color Doppler and spectral tracing, compression and augmentation techniques were used. FINDINGS: There is normal compressibility of the deep venous system from the inguinal region to the proximal ca lf. No echogenic clot is seen in the lumen of the common femoral, femoral, popliteal, and posterior tibial veins. There is a normal response of the venous system to proximal and distal augmentation an d respiration. CONCLUSION: 1. Negative for deep venous thrombosis. Seth Verma MD on November 16, 2017 at 15:09 Board Certified Radiologist. This report was verified electronically.
[2017-11-16 15:58] VITALS: BP 130/58; PULSE 87; RESP 18; TEMP 98; O2SAT 97
[2017-11-16 20:08] VITALS: BP 127/64; PULSE 84; RESP 18; TEMP 97.9; O2SAT 96
[2017-11-17] VITALS (8 sets, daily range): BP systolic 110–125; BP diastolic 50–57; PULSE 83–90; RESP 17–18; TEMP 96.8–98.6; O2SAT 95–98
[2017-11-17] MEDS: AMPICILLIN INJ 2,000 MG in SODIUM CHLORIDE 0.9% INJ 100 ML IV SCH ×6 (01:30→23:06)
[2017-11-17] MEDS: SODIUM CHLOR 0.9% 1000 ML INJ 1,000 ML IV SCH ×2 (04:39→16:07)
[2017-11-17] MEDS: CEFEPIME INJ 2,000 MG in SODIUM CHLORIDE 0.9% INJ 100 ML IV SCH ×3 (05:54→23:13)
[2017-11-17] MEDS: HEPARIN SODIUM - SQ 10,000 UNITS/ML VIAL SQ SCH ×3 (05:56→23:08)
[2017-11-17] MEDS: DOCUSATE SODIUM 50 MG/SENNA 8.6 MG TAB PO SCH ×2 (08:41→21:00)
[2017-11-17] MEDS: SODIUM CHLORIDE 0.9% FLUSH 10 ML FLUSH IV FLUSH SCH ×2 (08:41→23:07)
[2017-11-17] MEDS: MUPIROCIN 2% OINT 1 APPLIC/GM SYR NASAL SCH ×2 (08:41→21:00)
--- NOTE | 2017-11-17 13:00 | HHI.PR ---
Subjective Remarks 52 years old male with H/O CVA last August presented to the ED with transitional change in mental status not being able to verbalize words patient seems to be able to understand words however he cannot answer verbally which is consistent with expressive aphasia he said he has been having sweating since last night started with a weakness on his left side, there was a fever of 103 with positive chills, patient denied any pain, he reported cough with no significant phlegm, he denied any diarrhea abdominal pain nausea vomiting or dysuria As mentioned above patient had multiple bilateral small ischemic stroke in August 2017 he was seen by neurologist and sent home on baby aspirin 2 tablets In the previous admission there was a concern for right heart endocarditis however NOHELIA did not reveal any vegetation 2-15 SEEN IN ICU QUITE APHASIC PASSED SWALLOW EVAL NEEDS ECHO- MAY NEED NOHELIA DW RN AND PT OK FOR OUT OF ICU 2-16 PATIENT HAD ECHO WILL NOT NEED A NOHELIA DUE TO ABNORMAL VALVE NO NEW COMPLAINTS DW RN AND PT INCREASE ACTIVITY. 2-17 POSITIVE BLOOD CULTURES WILL NEED JAIL ANTIBIOTICS REMAINS APHASIC 2-18 Patient seen and examined this morning. Afebrile vital signs stable. Difficult to communicate due to patient's current aphasia. Does report that he is having some pain and swelling of the right ankle. Unaware of any injury to the right ankle. We will get imaging of the right ankle. Understands that he is to continue IV antibiotics due to the endocarditis. He is willing to give 1 week in this hospital and then he will leave regardless of medical advice. 2-19 WILL NEED JAIL ANTIBIOTICS FOR ENDOCARDITIS TREATMENT ID TO COME UP WITH CORRECTION PLAN DW RN AND PT //Sepsis //Aortic valve Endocarditis AMPICILLIN AND CEFEPIME //Pseudomonas bacteremia CEFEPIME //[place]dez sensitive Enterococcus faecalis bacteremia AMPICILLIN //h/o cocaine abuse //h/o stroke in Aug 2017. NEEDS SPEECH EVAL FOR APHASIA = 11/16. Patient says he is feeling fatigued as yesterday. Reports right lower extremity ankle and foot pain. =11/17. Patient seen this morning. Reports he continues to feel generally fatigued without change today. Denies any chest pain or shortness of breath. He reports continued right ankle pain, not worsened today. Denies any nausea or vomiting. Patient is amenable to discussion with palliative care. . Objective Vital Signs Date Time Temp Pulse Resp B/P (MAP) Pulse Ox O2 Delivery O2 Flow Rate FiO2 11/17/17 12:09 97.6 84 17 110/50 (70) 98 11/17/17 09:49 97 11/17/17 07:45 96.8 88 18 125/51 (75) 97 11/17/17 04:05 97.9 86 18 119/56 (77) 98 11/17/17 00:18 98.6 90 18 120/57 (78) 98 11/16/17 22:51 Room Air 11/16/17 20:08 97.9 84 18 127/64 (85) 96 11/16/17 15:58 98.0 87 18 130/58 (82) 97 I/O 11/16/17 11/16/17 11/16/17 11/17/17 11/17/17 11/17/17 07:00 15:00 23:00 07:00 15:00 23:00 Intake Total 360 ml 1500 ml 460 ml 760 ml Balance 360 ml 1500 ml 460 ml 760 ml Intake Oral 360 ml 1500 ml 360 ml 360 ml IV Total 100 ml 400 ml # Voids 2 4 1 1 # Bowel Movements 0 2 0 0 Result Diagram: 11/15/17 0604 11/15/17 0604 Imaging Last Impressions Lower Extremity Ultrasound 11/16/17 0000 Signed Impressions: Service Date/Time: Thursday, November 16, 2017 14:41 - CONCLUSION: 1. Negative for deep venous thrombosis. Seth Verma MD Chest CT 11/16/17 0000 Signed Impressions: Service Date/Time: Thursday, November 16, 2017 12:55 - CONCLUSION: 1. Trace right and small left pleural effusions with associated airspace consolidation at the lung bases. Differential considerations include aspiration or pneumonia with reactive effusions versus pleural effusions with compressive atelectasis. 2. Partially imaged right shaped defects in the azygous portions of the spleen which may reflect splenic infarcts. 3. Eccentric aortic valve calcifications consistent with prior history of aortic valve endocarditis. Russell Jose MD Abdomen/Pelvis CT 11/16/17 0000 Signed Impressions: Service Date/Time: Thursday, November 16, 2017 12:57 - CONCLUSION: 1. Stable probable embolic splenic and renal infarcts. 2. No acute abnormality or significant interval change. Specifically, no evidence for drainable abscess in the abdomen. Russell Jose MD Ankle X-Ray 11/14/17 0000 Signed Impressions: Service Date/Time: Tuesday, November 14, 2017 14:00 - CONCLUSION: Unremarkable examination of the right ankle. Valeriy Chapa MD Head CT 11/10/17 1036 Signed Impressions: Service Date/Time: Friday, November 10, 2017 12:16 - CONCLUSION: There is abnormal low density, likely representing cytotoxic edema, in the left frontal lobe. This very likely is related to a recent ischemic event. Reji Dasilva MD Chest X-Ray 11/10/17 1036 Signed Impressions: Service Date/Time: Friday, November 10, 2017 10:54 - CONCLUSION: No acute cardiopulmonary process. Kirby Trejo MD Liver Ultrasound 11/10/17 0000 Signed Impressions: Service Date/Time: Friday, November 10, 2017 14:47 - CONCLUSION: 1. Liver and spleen are both enlarged with multiple diffuse hepatic fatty infiltration. 2. Linear echogenic area within the lateral mid body of the spleen may represent a focal area of scarring. 3. Benign renal cortical cysts of the right kidney. 4. Small 3 mm gallbladder polyp. Gallbladder is otherwise sonographically normal. Kirby Trejo MD Brain MRI 11/10/17 0000 Signed Impressions: Service Date/Time: Friday, November 10, 2017 20:51 - CONCLUSION: The eighth of diminished attenuation involving the left frontoparietal junction on the patient's prior CT examination corresponds to acute infarction in addition to multiple other areas of new acute infarction bilaterally not present on the prior MRI dated 09/10/2017 and previously seen acute infarctions on the right side on that study have been evolved. Findings were discussed with the patient's nurse Chandan on 11/10/2017 9:19 PM. Fernanda Padilla MD Objective Remarks GENERAL: Patient lying in bed. Appears comfortable.[id number] Patient is oriented 3. Initially says he does not know the year but on being prompted to guess he guesses correctly.. He also initially says that the year is October SKIN: Warm and dry. HEAD: Normocephalic. EYES: No scleral icterus. No injection or drainage. NECK: Supple, trachea midline. No JVD or lymphadenopathy. CARDIOVASCULAR: Regular rate and rhythm without murmurs, gallops, or rubs. RESPIRATORY: Breath sounds equal bilaterally. No accessory muscle use. GASTROINTESTINAL: Abdomen soft, non-tender, nondistended. MUSCULOSKELETAL: No cyanosis. 1+ edema on the right lower extremity. No erythema. Is tender to palpation. No broken skin. no chnage BACK: Nontender without obvious deformity. No CVA tenderness. A/P Assessment and Plan 52 years old male with history of cocaine abuse and recent CVA presented with Aortic Valve Endocarditis //AORTIC VALVE ENDOCARDITIS = Effect on multiple organ systems. Please see imaging above. =MRI/MRA, ultrasound of the carotid, 2D echo has been DONE Continue on broad-spectrum antibiotics as per infectious disease Consult neurology=- has signed off- = infectious disease managing. Continue antibiotics as per infectious disease. CT chest with pneumonia likely secondary to infected emboli. Appreciate infectious disease assistance. //Steatosis on liver US -10/29 etoh. f/u PCP //Swollen Ankle -xray negative for acute process Still with swelling. We will check Doppler right lower extremity. = Ultrasound negative for DVT. No sign of acute ankle infection. Continue to monitor. //Social situation. = Patient with history of IV drug use, noncompliance. Patient has requested to forego treatment, but given his current mental state I am uncertain that he is capable of making this particular decision. Will consult psychiatry. Discussed at multidisciplinary rounds. Patient also with poor prognosis. Will consult palliative care to discuss options going forward with the patient and family. DVT prophylaxis Discharge Planning Continues on IV antibiotics for bacteremia Pending infectious disease clearance. Patient is self-pay. Patient lives at home with mother. Mother is unwilling to administer home IV antibiotics. Psychiatry consult for capacity. Palliative care consult. Expect it will be some time Haresh Mcghee MD Nov 17, 2017 13:00
--- NOTE | 2017-11-17 15:31 | PD.CONS ---
Consult Service Palliative Care Consult Requested By Dr. Mcghee Primary Care Physician No Primary Care Physician Reason for Consultation a. To assist with evaluation and management of symptoms including: confusion b. To assist medical decision maker(s) with: better understanding of current medical conditions; weighing benefits/burdens of medical treatment options; making medical treatment decisions. (Ana Rodarte) HPI History of Present Illness This 52-year-old male presented to the ED on 11/10/17 with family brought in due to being found disoriented, with difficulty speaking. Febrile temperature 103. No other complaints reported. He has known history of prior CVA, prior sepsis. * ED course: CXR negative for acute process. CT indicates possible new right- sided CVA.+ Expressive aphasia. + Leukocytosis WBC 20.8. BUN 49/creatinine 2.7 GFR 23. Patient was admitted for further evaluation and management. * MRI: Diminished attenuation involving left frontoparietal junction on prior CT examinations corresponds to acute infarction in addition to multiple other areas new acute infarction bilaterally not present on prior MRI 09/10/17, and previously seen acute infarction right side that have evolve * Neurology consulted: Noted patient seen in August for multiple bilateral small ischemic strokes. Evaluation negative for endocarditis or heart thrombus. Patient with new left frontal infarct. History of drug abuse, recent stroke, febrile probable sepsis. Endocarditis remains a consideration. If negative for endocarditis should treat with anticoagulation though may not be a good candidate. * ID consulted: Cultures positive for gram-negative bacteremia, continue cefepime continue Vanco follow cultures. 2-D echo pending. * 2-D echo 11/11: Image quality limits descriptions EF 50%. Mild mitral valve regurg, aortic valve sclerosis, trace tricuspid regurg pulmonary valve not well visualized. NOHELIA pending. * Cardiology consulted--cardiology notes aortic valve endocarditis will need full antibiotic therapy course per ID, NOHELIA pending though patient may not need a NOHELIA at this time in terms of planning care. Cardiology notes discussion with patient who was reluctant to stay in the hospital for more than a few days. * ID continues to follow and notes that the patient reported would only stay for one week. Continued on cefepime, Vanco. Per Dr. Rg 5 mm aortic valve vegetation. New infarct likely septic emboli related versus stroke from other risk factors. 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 ID, other medical team members note ongoing discussions with patient's mother regarding discharge planning. * 11/16 vision with ongoing edema ankle, x-ray negative for fracture. Ultrasound right lower extremity negative for DVT. * 11/17 ST following. Patient on mechanical soft diet within liquids. Patient with mild to moderate expressive deficits. * 11/17 patient continues to have ankle pain. Patient unable to go home with IV antibiotics as his mother is unable to administer. Psychiatry is consulted to assess capacity for decision-making. Palliative care consulted for clarification of goals of treatment. Pt seen in room, no visitors present. He is alert, partially oriented. Expressive aphasia,Pauses to search for words at times. Unable to complete sentences at times. He is generally cooperative. He has some limited insight into conditions. He reports he came to the hospital for rt foot pain which they have not been able to find the cause of. He understands that untreated he could from his infection. He just wants to get out of the hospital, he feels as if he is getting sicker while in the hospital, not better. He tells me he needs to get back to work. Curses frequently. Upon exploration of CPR, life support he indicates he wouldn't want that he would rather "let me ". His ROS is essentially negative except for rt ankle/foot pain and edema. He confirms his mother is HCS, he is amenable to me calling her. Let him know psych would be evaluating him to determine if he is safe to make his own decisions, he is Ok with this. He tells me he wants to go home w out pt IV and his family - daughter will help with administration. Function/Cognitive Trajectory Previously lived at home with his mother, reported independent with ADLs. Prior to Aug CVA lived alone. (Ana Rodarte) Review of Systems Constitutional: COMPLAINS OF: Pain (rt ankle), DENIES: Change in appetite, Generalized weakness Eyes: DENIES: Blurred vision, Vision loss Ears, nose, mouth, throat: COMPLAINS OF: Hearing loss (left ear since CVA 2016), DENIES: Oral lesions, Throat pain Respiratory: DENIES: Cough, Shortness of breath Cardiovascular: COMPLAINS OF: Lower Extremity Edema (rt ankle ), DENIES: Chest pain Gastrointestinal: DENIES: Abdominal pain, Diarrhea, Nausea, Vomiting, Difficulty Swallowing Musculoskeletal: DENIES: Joint pain, Muscle aches Integumentary: DENIES: Rash Psychiatric: COMPLAINS OF: Confusion (+ per mother ), DENIES: Anxiety, Hallucinations (Ana Rodarte) Past Family Social History Coded Allergies: No Known Allergies (Verified Allergy, Unknown, 11/10/17) Past Medical History CVA August 2017- bilateral small ischemic . Past Surgical History none . Reported Medications Aspirin DR (Aspirin) 81 Mg Tabdr 162 Mg PO DAILY . Current Medications Medications (Trade) Dose Ordered Sig/Vikas Route Start Time Stop Time Status Last Admin Sodium Chloride 1,000 ml @ 100 mls/hr Q10H IV 11/10/17 14:07 11/14/17 19:49 (NS Flush) 2 ml UNSCH PRN IV FLUSH 11/10/17 14:15 11/15/17 17:31 (NS Flush) 2 ml BID IV FLUSH 11/10/17 21:00 11/17/17 08:41 (Heparin Inj) 5,000 units Q8H SQ 11/10/17 14:15 11/17/17 14:00 (Narcan Inj) 0.4 mg UNSCH PRN IV PUSH 11/10/17 14:15 (Arabella-Colace) 1 tab BID PO 11/10/17 21:00 11/17/17 08:41 (Milk Of Magnesia Liq) 30 ml Q12H PRN PO 11/10/17 14:15 (Senokot) 17.2 mg Q12H PRN PO 11/10/17 14:15 (Dulcolax Supp) 10 mg DAILY PRN RECTAL 11/10/17 14:15 (Lactulose Liq) 30 ml DAILY PRN PO 11/10/17 14:15 Cefepime HCl 2000 mg/Sodium Chloride 100 ml @ 200 mls/hr Q8H IV 11/10/17 14:15 11/17/17 13:59 (Bactroban Nasal 2% Oint) 1 applic BID NASAL 11/10/17 21:00 11/17/17 08:41 Ampicillin Sodium 2000 mg/Sodium Chloride 100 ml @ 400 mls/hr Q4H IV 11/15/17 09:00 11/17/17 12:47 Family History not aware of significant medical history in his family . Substance Use Tobacco:smokes 1 pack every 2-3 days Alcohol: Stopped drinking alcohol prior to his August admission Prescription med abuse: None reported Illicits: pt reports "used to do alot of drugs" but none recently, Per EMR history of cocaine use Psychosocial History Lives at home with his mother since CVA 08/2017. Prev lived alone. 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 not , 2 children local. Lived in [facility] most of his life. . (Ana Rodarte) Living Will: Never completed Health Care Surrogate: Copy in medical record Durable Power of Professor Of Public Administration: Never completed Ethical and Legal Issues Pt admitted w confusion, aphasia. S/p recent CVA, + new areas infarct. Mental status fluctuates. Not clear he has full insight and ability to make decisions, though he may be able to participate in shared decision making. Psych eval pending. Mother is designated HCS. . (Ana Rodarte) Physical Exam Vital Signs Date Time Temp Pulse Resp B/P (MAP) Pulse Ox O2 Delivery O2 Flow Rate FiO2 11/17/17 12:09 97.6 84 17 110/50 (70) 98 11/17/17 09:49 97 11/17/17 07:45 96.8 88 18 125/51 (75) 97 11/17/17 04:05 97.9 86 18 119/56 (77) 98 11/17/17 00:18 98.6 90 18 120/57 (78) 98 11/16/17 22:51 Room Air 11/16/17 20:08 97.9 84 18 127/64 (85) 96 11/16/17 15:58 98.0 87 18 130/58 (82) 97 Exam CONSTITUTIONAL/GENERAL: This is an adequately nourished patient, no distress, disheveled. TUBES/LINES/DRAINS:PIV BUE. SKIN: No jaundice, rashes, or lesions. No wounds seen anteriorly. Skin warm/dry HEAD: Atraumatic. Normocephalic. EYES: Pupils equal and round and reactive. Extraocular motions intact. No scleral icterus. No injection or drainage. Fundi not examined. ENT: Hard of hearing. Nose without bleeding or purulent drainage. Throat without visible erythema, exudates, masses, or lesions.poor dentition NECK: Trachea midline. Supple, nontender. No palpable thyroid enlargement or nodularity. CARDIOVASCULAR: Regular rate and rhythm without murmur. No JVD. Peripheral pulses symmetric.+ slight edema right foot/ankle RESPIRATORY/CHEST: Symmetric, unlabored respirations. Clear to auscultation. Breath sounds equal bilaterally. GASTROINTESTINAL: Abdomen soft, non-tender, nondistended. No palpable masses. No guarding. Bowel sounds present. GENITOURINARY: Without palpable bladder distension. MUSCULOSKELETAL: Extremities without clubbing, cyanosis. +edema Rt ankle/foot. No joint tenderness or effusion noted. No mottling or clubbing. NEUROLOGICAL: Awake and alert.Oriented x2. +expressive aphasia, unable to complete sentences. Cooperative. Follows commands. Moves all 4 extremities. PSYCHIATRIC: No obvious anxiety/depression. no apparent hallucinations or other psychotic thought process. (Ana Rodarte) Diagnostic Tests Laboratory Laboratory Tests Test 11/14/17 15:08 11/15/17 06:04 11/16/17 21:49 White Blood Count 12.2 TH/MM3 (4.0-11.0) 12.5 TH/MM3 (4.0-11.0) Red Blood Count 3.02 MIL/MM3 (4.50-5.90) 2.95 MIL/MM3 (4.50-5.90) Hemoglobin 8.7 GM/DL (13.0-17.0) 8.2 GM/DL (13.0-17.0) Hematocrit 25.4 % (39.0-51.0) 24.4 % (39.0-51.0) Mean Corpuscular Volume 84.2 FL (80.0-100.0) 82.7 FL (80.0-100.0) Mean Corpuscular Hemoglobin 28.9 PG (27.0-34.0) 27.8 PG (27.0-34.0) Mean Corpuscular Hemoglobin Concent 34.3 % (32.0-36.0) 33.7 % (32.0-36.0) Red Cell Distribution Width 15.8 % (11.6-17.2) 15.9 % (11.6-17.2) Platelet Count 350 TH/MM3 (150-450) 407 TH/MM3 (150-450) Mean Platelet Volume 7.9 FL (7.0-11.0) 7.9 FL (7.0-11.0) Neutrophils (%) (Auto) 69.6 % (16.0-70.0) 69.6 % (16.0-70.0) Lymphocytes (%) (Auto) 16.4 % (9.0-44.0) 17.7 % (9.0-44.0) Monocytes (%) (Auto) 12.0 % (0.0-8.0) 10.1 % (0.0-8.0) Eosinophils (%) (Auto) 1.4 % (0.0-4.0) 1.8 % (0.0-4.0) Basophils (%) (Auto) 0.6 % (0.0-2.0) 0.8 % (0.0-2.0) Neutrophils # (Auto) 8.5 TH/MM3 (1.8-7.7) 8.7 TH/MM3 (1.8-7.7) Lymphocytes # (Auto) 2.0 TH/MM3 (1.0-4.8) 2.2 TH/MM3 (1.0-4.8) Monocytes # (Auto) 1.5 TH/MM3 (0-0.9) 1.3 TH/MM3 (0-0.9) Eosinophils # (Auto) 0.2 TH/MM3 (0-0.4) 0.2 TH/MM3 (0-0.4) Basophils # (Auto) 0.1 TH/MM3 (0-0.2) 0.1 TH/MM3 (0-0.2) CBC Comment DIFF FINAL DIFF FINAL Differential Comment Blood Urea Nitrogen 12 MG/DL (7-18) 9 MG/DL (7-18) Creatinine 0.92 MG/DL (0.60-1.30) 0.85 MG/DL (0.60-1.30) Random Glucose 102 MG/DL (74-106) 96 MG/DL (74-106) Total Protein 6.2 GM/DL (6.4-8.2) Albumin 2.0 GM/DL (3.4-5.0) Calcium Level 7.8 MG/DL (8.5-10.1) 8.0 MG/DL (8.5-10.1) Phosphorus Level 3.0 MG/DL (2.5-4.9) Magnesium Level 1.9 MG/DL (1.5-2.5) Alkaline Phosphatase 90 U/L (45-117) Aspartate Amino Transf (AST/SGOT) 27 U/L (15-37) Alanine Aminotransferase (ALT/SGPT) 51 U/L (12-78) Total Bilirubin 0.3 MG/DL (0.2-1.0) Sodium Level 138 MEQ/L (136-145) 140 MEQ/L (136-145) Potassium Level 3.9 MEQ/L (3.5-5.1) 3.5 MEQ/L (3.5-5.1) Chloride Level 108 MEQ/L (98-107) 108 MEQ/L (98-107) Carbon Dioxide Level 24.1 MEQ/L (21.0-32.0) 23.9 MEQ/L (21.0-32.0) Anion Gap 6 MEQ/L (5-15) 8 MEQ/L (5-15) Estimat Glomerular Filtration Rate 87 ML/MIN (>89) 95 ML/MIN (>89) C-Reactive Protein 11.50 MG/DL (0.00-0.30) (Ana Rodarte) Result Diagram: 11/15/1704 11/15/17 0604 Microbiology Microbiology Date/Time Source Procedure Growth Status 11/13/17 05:45 Blood Peripheral Aerobic Blood Culture - Preliminary NO GROWTH IN 4 DAYS Resulted 11/13/17 05:45 Blood Peripheral Anaerobic Blood Culture - Preliminary NO GROWTH IN 4 DAYS Resulted 11/10/17 11:15 Nasal Washing Influenza Types A,B Antigen (SERENITY) - Final NEGATIVE FOR FLU A AND B ANTIGEN.... Complete 11/10/17 14:20 Urine Catheterized Urine Urine Culture - Final NO GROWTH IN 48 HOURS. Complete Imaging Last Impressions Lower Extremity Ultrasound 11/16/17 0000 Signed Impressions: Service Date/Time: Thursday, November 16, 2017 14:41 - CONCLUSION: 1. Negative for deep venous thrombosis. Seth Verma MD Chest CT 11/16/17 0000 Signed Impressions: Service Date/Time: Thursday, November 16, 2017 12:55 - CONCLUSION: 1. Trace right and small left pleural effusions with associated airspace consolidation at the lung bases. Differential considerations include aspiration or pneumonia with reactive effusions versus pleural effusions with compressive atelectasis. 2. Partially imaged right shaped defects in the azygous portions of the spleen which may reflect splenic infarcts. 3. Eccentric aortic valve calcifications consistent with prior history of aortic valve endocarditis. Russell Jose MD Abdomen/Pelvis CT 11/16/17 0000 Signed Impressions: Service Date/Time: Thursday, November 16, 2017 12:57 - CONCLUSION: 1. Stable probable embolic splenic and renal infarcts. 2. No acute abnormality or significant interval change. Specifically, no evidence for drainable abscess in the abdomen. Russell Jose MD Ankle X-Ray 11/14/17 0000 Signed Impressions: Service Date/Time: Tuesday, November 14, 2017 14:00 - CONCLUSION: Unremarkable examination of the right ankle. Valeriy Chapa MD Head CT 11/10/17 1036 Signed Impressions: Service Date/Time: Friday, November 10, 2017 12:16 - CONCLUSION: There is abnormal low density, likely representing cytotoxic edema, in the left frontal lobe. This very likely is related to a recent ischemic event. Reji Dasilva MD Chest X-Ray 11/10/17 1036 Signed Impressions: Service Date/Time: Friday, November 10, 2017 10:54 - CONCLUSION: No acute cardiopulmonary process. Kirby Trejo MD Liver Ultrasound 11/10/17 0000 Signed Impressions: Service Date/Time: Friday, November 10, 2017 14:47 - CONCLUSION: 1. Liver and spleen are both enlarged with multiple diffuse hepatic fatty infiltration. 2. Linear echogenic area within the lateral mid body of the spleen may represent a focal area of scarring. 3. Benign renal cortical cysts of the right kidney. 4. Small 3 mm gallbladder polyp. Gallbladder is otherwise sonographically normal. Kirby Trejo MD Brain MRI 11/10/17 0000 Signed Impressions: Service Date/Time: Friday, November 10, 2017 20:51 - CONCLUSION: The eighth of diminished attenuation involving the left frontoparietal junction on the patient's prior CT examination corresponds to acute infarction in addition to multiple other areas of new acute infarction bilaterally not present on the prior MRI dated 09/10/2017 and previously seen acute infarctions on the right side on that study have been evolved. Findings were discussed with the patient's nurse Chandan on 11/10/2017 9:19 PMDasha Padilla MD (Ana Rodarte) Patient/Family Conference Family Conference Time (mins): 20 Family Conference Location: Telephone Issues Discussed: spoke to mother, discussion regarding: * Palliative care role, purpose, approach * Additional medical, psychosocial, history * Patients general health, functional status, and cognitive changes in the months leading up to the current hospitalization * Patient/family understanding of the current medical problems; pending psych eval * Patient/family understanding of prognosis- possible trajectories w endocarditis * Patients goals of care as best understood from advance directives and/or conversations and/or values * Current medical treatment options and benefits/burdens of those options * HCS * CODE STATUS- mother affirms pt would want DNR status * Questions answered to the best of my ability * Palliative care contact information provided Pt mother does not feel he has good understanding of his conditions/needed treatments. She does not feel he will be able to care for himself. She is not able to be a primary caregiver for him, and is not certain that his daughter will be able ot either, as she works lunchroom attendant and has a toddler. Pt mother does wish for current tx to be maximized to try to help pt improved, feels he will likely need retirement placement for his care needs. She is open to ongoing discussions as clinical course evolves. She tells me dtr was supposed to speak to ID Dr re conditions, if she has not, I will provide update. . (Ana Rodarte) Assessment and Plan Disease Oriented Problem List: (1) Severe sepsis (2) CVA (cerebral vascular accident) (3) Cocaine abuse (4) Aortic valve endocarditis (5) Bacteremia Symptom Scale: (1) Confusion (2) Pain Pertinent Non-Medical Issues Psychosocial: Spiritual: Legal:Pt admitted w confusion, aphasia. S/p recent CVA, + new areas infarct. Mental status fluctuates. Not clear he has full insight and ability to make decisions, though he may be able to participate in shared decision making. Psych eval pending. Mother is designated HCS. Ethical issues impacting care:no ethical issues identified Important Contacts Mother Bhargavi Wallis [phone] daughter Agnes [phone] . Code Status: No Code Plan * Legal decision maker:Pt admitted w confusion, aphasia. S/p recent CVA, + new areas infarct. Mental status fluctuates. Not clear he has full insight and ability to make decisions, though he may be able to participate in shared decision making at times. During my exam today he appears to have very limited insight and NOT able to make his own decisions. Psych eval pending. Mother is designated HCS. . * Goals:Pt mother does not feel he has good understanding of his conditions/ needed treatments. She does not feel he will be able to care for himself. She is not able to be a primary caregiver for him, and is not certain that his daughter will be able to either, as she works lunchroom attendant and has a toddler. Pt mother does wish for current tx to be maximized to try to help pt improve, feels he will likely need joint terminal attack controller placement for his care needs. She requests DNR status based on pt known wishes. She is open to ongoing discussions as clinical course evolves. She tells me dtr was supposed to speak to ID Dr ross conditions, if she has not, I will provide update. * CODE STATUS: DNR * SYMPTOMS: --confusion/AMS- recent CVA, + new embolic CVA this admission. mental status fluctuates. Hx drug abuse, "none recently". --pain- Pain to RLE , imaging negative, exam + edema but otherwise benign; he describes pain as Mild, cont to monitor * Palliative care will continue to follow during hospital course as condition evolves, to assist patient/decision-maker with understanding of medical conditions, weighing benefits/burdens of treatment options, for clarification of goals of treatment. Additionally will assist with any symptoms of palliative concern . (Ana Rodarte) Thank you for the opportunity to participate in the care of Mr. Holcomb. (Ana Rodarte) Attestation To help prompt me to consider important information that might be impacting today's encounter and assessment, information from prior notes written by myself or my colleagues may have been "brought forward" into today's note. My signature on this note, however, is an attestation that I personally performed the exam, history, and/or decision-making noted today, and, unless otherwise indicated, the interactions with patient, family, and staff as well as the review of records all occurred today. I also attest that the listed assessment and stated plan reflect my best clinical judgment today based on the combination of historical information, prior notes, and today's exam/ interactions. When time spent is documented, it refers only to time spent today by the signer, or if indicated, combined time spent today by collaborating physician/nurse practitioner. (Ana Rodarte) Collaborating MD Comments Chart reviewed. Case discussed with palliative care NETWORK PROGRAM MANAGER. Above NETWORK PROGRAM MANAGER note reviewed and I concur. . (Rocky Salas MD) Ana Rodarte Nov 17, 2017 15:31 Rocky Salas MD Nov 24, 2017 17:12
[2017-11-17] MEDS ORDERED: GADODIAMIDE PF 287 MG/ML 5 ML VIAL (for RAD MRI) IVCONTRAST ONE (22:34)
--- NOTE | 2017-11-17 23:39 | RADRPT ---
EXAM DATE/TIME: 11/17/2017 21:51 [facility] COMPARISON: No previous studies available for comparison. INDICATIONS : Osteomyelitis from hematogenous spread, pain. CONTRAST: 16 cc Omniscan (gadodiamide) IV MEDICAL HISTORY : Cerebrovascular disease. SURGICAL HISTORY : None. ENCOUNTER: Initial ACUITY: 1 day PAIN SCORE: 7/10 LOCATION: Right ankle. TECHNIQUE: Multiplanar, multisequence MRI examination was performed without contrast and after the intravenous a dministration of gadolinium. FINDINGS: BONE/CARTILAGE: Bone marrow signal is homogeneous. Articular cartilage signal is within normal limits. TENDONS: All of the visualized tendons are intact. There is mild tenosynovitis involving the flexor digitorum longus and tibialis posterior tendons as well as the peroneus longus tendon. LIGAMENTS: The lateral and medial ligament complexes are intact. MISCELLANEOUS: The plantar aponeurosis is intact. The tarsal tunnel is within normal limits. POST-CONTRAST: There is patchy soft tissue enhancement along the posterior medial ankle at the level of the ankle mo rtise. In this region there is a 1.2 cm focal nonenhancing area which demonstrates high signal on the T2-weighted sequences and low signal on the T1-weighted images. There is surrounding soft tissue ashley ma. CONCLUSION: 1. Normal marrow edema with no evidence of osteomyelitis. 2. Soft tissue edema along the medial ankle with 1.2 cm focal area of abnormality which could represe nt a small abscess or cystic structure. This did not enhance. 3. Mild tenosynovitis involving the flexor digitorum longus tendon, tibialis posterior tendon and per oneus longus tendon Jerad Santos MD on November 17, 2017 at 23:31 Board Certified Radiologist. This report was verified electronically.
[2017-11-18 00:48] VITALS: BP 114/55; PULSE 86; RESP 18; TEMP 98.4; O2SAT 96
[2017-11-18] MEDS: AMPICILLIN INJ 2,000 MG in SODIUM CHLORIDE 0.9% INJ 100 ML IV SCH ×6 (01:04→20:45)
[2017-11-18] MEDS: SODIUM CHLOR 0.9% 1000 ML INJ 1,000 ML IV SCH ×3 (02:07→20:39)
[2017-11-18] MEDS: HEPARIN SODIUM - SQ 10,000 UNITS/ML VIAL SQ SCH ×3 (05:32→20:45)
[2017-11-18 05:46] LABS: AUTOMATED NEUTROPHIL # 6.5 TH/MM3 (1.8-7.7); BASOPHIL # 0.1 TH/MM3 (0-0.2); BASOPHIL % 0.9 % (0.0-2.0); EOSINOPHIL # 0.2 TH/MM3 (0-0.4); EOSINOPHIL % 1.8 % (0.0-4.0); HEMATOCRIT 24.8 % (39.0-51.0); HEMOGLOBIN 8.4 GM/DL (13.0-17.0); LYMPH % 22.2 % (9.0-44.0); LYMPHOCYTE # 2.2 TH/MM3 (1.0-4.8); MEAN CELL VOLUME 82.3 FL (80.0-100.0); MEAN PLATELET VOLUME 7.3 FL (7.0-11.0); MONO % 8.6 % (0.0-8.0); MONOCYTE # 0.8 TH/MM3 (0-0.9); NEUT % 66.5 % (16.0-70.0); PLATELET COUNT 528 TH/MM3 (150-450); RED BLOOD COUNT 3.01 MIL/MM3 (4.50-5.90); RED CELL DISTRIBUTION WIDTH 16.2 % (11.6-17.2); WHITE BLOOD COUNT 9.8 TH/MM3 (4.0-11.0)
[2017-11-18 06:11] LABS: ALBUMIN 2.1 GM/DL (3.4-5.0); BICARBONATE 25.8 MEQ/L (21.0-32.0); CALCIUM 8.2 MG/DL (8.5-10.1); CREATININE 0.98 MG/DL (0.60-1.30); MAGNESIUM 2.2 MG/DL (1.5-2.5); PHOSPHORUS 3.3 MG/DL (2.5-4.9)
[2017-11-18] MEDS: CEFEPIME INJ 2,000 MG in SODIUM CHLORIDE 0.9% INJ 100 ML IV SCH ×3 (06:30→22:58)
[2017-11-18 08:00] VITALS: BP 116/54; PULSE 85; RESP 20; TEMP 97.4; O2SAT 95
[2017-11-18 08:04] VITALS: O2SAT 95
[2017-11-18] MEDS: MUPIROCIN 2% OINT 1 APPLIC/GM SYR NASAL SCH ×2 (09:00→20:39)
[2017-11-18] MEDS: SODIUM CHLORIDE 0.9% FLUSH 10 ML FLUSH IV FLUSH SCH ×2 (09:02→20:45)
[2017-11-18] MEDS: DOCUSATE SODIUM 50 MG/SENNA 8.6 MG TAB PO SCH ×2 (09:10→20:45)
[2017-11-18 12:00] VITALS: BP 109/53; PULSE 86; RESP 20; TEMP 97.1; O2SAT 95
--- NOTE | 2017-11-18 12:25 | PD.PSY.CON ---
Provisional Diagnosis Admission Date Nov 10, 2017 at 12:59 [place]. Delirium due to underlying medical conditions History of Present Illness Service Psychiatry Consult Requested By Medicine Reason for Consult Decision-making capacity Primary Care Physician No Primary Care Physician HPI The patient is a 52 years old man, with no psychiatric history, with H /O CVA last August presented to the ED with transitional change in mental status not being able to verbalize words patient seems to be able to understand words however he cannot answer verbally which is consistent with expressive aphasia he said he has been having sweating since last night started with a weakness on his left side, there was a fever of 103 with positive chills, patient denied any pain, he reported cough with no significant phlegm, he denied any diarrhea abdominal pain nausea vomiting or dysuria As mentioned above patient had multiple bilateral small ischemic stroke in August 2017 he was seen by neurologist and sent home on baby aspirin 2 tablets. In the previous admission there was a concern for right heart endocarditis however NOHELIA did not reveal any vegetation. Patient was consulted to psychiatry to assess decision-making capacity to leave AMA and refuses treatment. On psychiatric evaluation today, the patient is oppositional, poorly cooperative. He says that he feels fine, reports good mood, he denies suicidal and homicidal ideation , he denies visual and auditory hallucinations. The patient is oriented in person, but completely disoriented in time and place. He is unable to verbalize the reason of his hospitalization, he says that he doesn't know what is the reason he is here, and he was to go home. Patient is unable to elaborate on the circumstances around his decision to go home and alternative choices. He just repeatedly say that he does not want to be here, but is unable to explain why. Review of Systems ROS Limitations: Uncooperative Constitutional: COMPLAINS OF: Diaphoretic episodes, DENIES: Fatigue, Fever, Weight gain, Weight loss, Chills, Dizziness, Change in appetite, Night Sweats Past Family Social History Coded Allergies: No Known Allergies (Verified Allergy, Unknown, 11/10/17) Active Scripts Aspirin (Aspirin DR) 81 Mg Tabdr, 162 MG PO DAILY for Blood Clot Prevention, #30 TAB 0 Refills Prov:Lev Uribe MD 09/26/17 Current Medications Medications (Trade) Dose Ordered Sig/Vikas Route Start Time Stop Time Status Last Admin Sodium Chloride 1,000 ml @ 100 mls/hr Q10H IV 11/10/17 14:07 11/14/17 19:49 (NS Flush) 2 ml UNSCH PRN IV FLUSH 11/10/17 14:15 11/15/17 17:31 (NS Flush) 2 ml BID IV FLUSH 11/10/17 21:00 11/18/17 09:02 (Heparin Inj) 5,000 units Q8H SQ 11/10/17 14:15 11/18/17 05:32 (Narcan Inj) 0.4 mg UNSCH PRN IV PUSH 11/10/17 14:15 (Arabella-Colace) 1 tab BID PO 11/10/17 21:00 11/18/17 09:10 (Milk Of Magnesia Liq) 30 ml Q12H PRN PO 11/10/17 14:15 (Senokot) 17.2 mg Q12H PRN PO 11/10/17 14:15 (Dulcolax Supp) 10 mg DAILY PRN RECTAL 11/10/17 14:15 (Lactulose Liq) 30 ml DAILY PRN PO 11/10/17 14:15 Cefepime HCl 2000 mg/Sodium Chloride 100 ml @ 200 mls/hr Q8H IV 11/10/17 14:15 11/18/17 06:30 (Bactroban Nasal 2% Oint) 1 applic BID NASAL 11/10/17 21:00 11/17/17 08:41 Ampicillin Sodium 2000 mg/Sodium Chloride 100 ml @ 400 mls/hr Q4H IV 11/15/17 09:00 11/18/17 09:02 Physical Exam Vital Signs Vital Signs Date Time Temp Pulse Resp B/P (MAP) Pulse Ox O2 Delivery O2 Flow Rate FiO2 11/18/17 08:04 95 21 11/18/17 08:00 97.4 85 20 116/54 (74) 11/16/17 22:51 Room Air I/O 11/18/17 11/18/17 11/19/17 08:00 16:00 00:00 Intake Total 560 ml Balance 560 ml Lab Results Test 11/18/17 04:58 White Blood Count 9.8 TH/MM3 Red Blood Count 3.01 MIL/MM3 Hemoglobin 8.4 GM/DL Hematocrit 24.8 % Mean Corpuscular Volume 82.3 FL Mean Corpuscular Hemoglobin 28.0 PG Mean Corpuscular Hemoglobin Concent 34.0 % Red Cell Distribution Width 16.2 % Platelet Count 528 TH/MM3 Mean Platelet Volume 7.3 FL Neutrophils (%) (Auto) 66.5 % Lymphocytes (%) (Auto) 22.2 % Monocytes (%) (Auto) 8.6 % Eosinophils (%) (Auto) 1.8 % Basophils (%) (Auto) 0.9 % Neutrophils # (Auto) 6.5 TH/MM3 Lymphocytes # (Auto) 2.2 TH/MM3 Monocytes # (Auto) 0.8 TH/MM3 Eosinophils # (Auto) 0.2 TH/MM3 Basophils # (Auto) 0.1 TH/MM3 CBC Comment DIFF FINAL Differential Comment Blood Urea Nitrogen 9 MG/DL Creatinine 0.98 MG/DL Random Glucose 95 MG/DL Albumin 2.1 GM/DL Calcium Level 8.2 MG/DL Phosphorus Level 3.3 MG/DL Magnesium Level 2.2 MG/DL Sodium Level 140 MEQ/L Potassium Level 3.7 MEQ/L Chloride Level 106 MEQ/L Carbon Dioxide Level 25.8 MEQ/L Anion Gap 8 MEQ/L Estimat Glomerular Filtration Rate 81 ML/MIN B-Type Natriuretic Peptide 741 PG/ML Date/Time Source Procedure Growth Status 11/13/17 05:45 Blood Peripheral Aerobic Blood Culture - Final NO GROWTH IN 5 DAYS Complete 11/13/17 05:45 Blood Peripheral Anaerobic Blood Culture - Final NO GROWTH IN 5 DAYS Complete 11/10/17 11:15 Nasal Washing Influenza Types A,B Antigen (SERENITY) - Final NEGATIVE FOR FLU A AND B ANTIGEN.... Complete 11/10/17 14:20 Urine Catheterized Urine Urine Culture - Final NO GROWTH IN 48 HOURS. Complete Mental Status Examination Appearance: Appropriate Consciousness: Alert Orientation: Person Motor Activity: Normal gait Speech: Hesitant, Slow Language: Adequate Attention and Concentration: Inadequate Memory: Impaired Mood: Oppositional Affect: Irritable Thought Process & Associations: Goal directed Thought Content: Preoccupations, Obsessions Hallucination Type: None Delusion Type: None Suicidal Ideation: No Suicidal Plan: No Suicidal Intention: No Homicidal Ideation: No Homicidal Plan: No Homicidal Intention: No Insight: Fair Judgment: Impulsive Assessment & Plan Problem List: (1) Delirium due to another medical condition ICD Codes: F05 - Delirium due to known physiological condition Assessment & Plan: On psychiatric evaluation the patient is oppositional, irritable, disoriented in time and place, Disorganized. The patient verbalized the choice of leaving the hospital and not continuing treatment, but he is unable to elaborate a reason for this. The patient does not seem to understand and appreciate the nature of his medical condition and the consequences of his actions at this moment. For this reason, the patient does not have decision- making capacity to leave AMA at this moment. (2) CVA (cerebral vascular accident) ICD Codes: I63.9 - Cerebral infarction, unspecified (3) Severe sepsis ICD Codes: A41.9 - Sepsis, unspecified organism; R65.20 - Severe sepsis without septic shock Status: Acute Assessment & Plan Estimated LOS: Fletcher Smith MD Nov 18, 2017 12:25
--- NOTE | 2017-11-18 14:16 | HHI.IDPN ---
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 Patient has expressive as well as possible receptive aphasia as a result of that. His mother reports he lives with her. He does go out of the home to meet friends. To the best of her knowledge he does not do drugs but she would not be surprised if he did. She reported he had complained of sweating and left side weakness with fever 103 F associated with chills. He denies any pain. He reports cough with phlegm. He denies any N/V or diarrhea. He was seen by Neuro and it appears he is non compliant with medications including aspirin prescribed last admission. Last admission patient was treated for endocarditis possibly per mother. Patient was sepsis and workup revealed Gram neg bacteremia and ID was consulted due to suspicion of endocarditis. 2D ECHO pending. Overnight events reviewed Complains of Right foot, ankle pain since admission but swelling and pain worsened. MRI done with abnormal findings in tendon. No fevers No rash No diarrhea Antibiotics Cefepime IV Ampicillin IV Lines Line sites with no e.o infection Past Medical History reviewed Allergies: Coded Allergies: No Known Allergies (Verified Allergy, Unknown, 11/10/17) Objective . Vital Signs Date Time Temp Pulse Resp B/P (MAP) Pulse Ox O2 Delivery O2 Flow Rate FiO2 11/18/17 12:00 97.1 86 20 109/53 (71) 95 11/18/17 08:04 95 21 11/18/17 08:00 97.4 85 20 116/54 (74) 95 11/18/17 00:48 98.4 86 18 114/55 (74) 96 11/17/17 21:05 97.6 88 17 117/52 (73) 95 11/17/17 18:06 98 21 11/17/17 15:52 98.3 83 18 118/54 (75) 98 . Laboratory Tests Test 11/18/17 04:58 White Blood Count 9.8 TH/MM3 Red Blood Count 3.01 MIL/MM3 Hemoglobin 8.4 GM/DL Hematocrit 24.8 % Mean Corpuscular Volume 82.3 FL Mean Corpuscular Hemoglobin 28.0 PG Mean Corpuscular Hemoglobin Concent 34.0 % Red Cell Distribution Width 16.2 % Platelet Count 528 TH/MM3 Mean Platelet Volume 7.3 FL Neutrophils (%) (Auto) 66.5 % Lymphocytes (%) (Auto) 22.2 % Monocytes (%) (Auto) 8.6 % Eosinophils (%) (Auto) 1.8 % Basophils (%) (Auto) 0.9 % Neutrophils # (Auto) 6.5 TH/MM3 Lymphocytes # (Auto) 2.2 TH/MM3 Monocytes # (Auto) 0.8 TH/MM3 Eosinophils # (Auto) 0.2 TH/MM3 Basophils # (Auto) 0.1 TH/MM3 CBC Comment DIFF FINAL Differential Comment Laboratory Tests Test 11/16/17 21:49 11/18/17 04:58 C-Reactive Protein 11.50 MG/DL Blood Urea Nitrogen 9 MG/DL Creatinine 0.98 MG/DL Random Glucose 95 MG/DL Albumin 2.1 GM/DL Calcium Level 8.2 MG/DL Phosphorus Level 3.3 MG/DL Magnesium Level 2.2 MG/DL Sodium Level 140 MEQ/L Potassium Level 3.7 MEQ/L Chloride Level 106 MEQ/L Carbon Dioxide Level 25.8 MEQ/L Anion Gap 8 MEQ/L Estimat Glomerular Filtration Rate 81 ML/MIN B-Type Natriuretic Peptide 741 PG/ML Imaging Last Impressions Head CT 11/10/17 1036 Signed Impressions: Service Date/Time: Friday, November 10, 2017 12:16 - CONCLUSION: There is abnormal low density, likely representing cytotoxic edema, in the left frontal lobe. This very likely is related to a recent ischemic event. Reji Dasilva MD Chest X-Ray 11/10/17 1036 Signed Impressions: Service Date/Time: Friday, November 10, 2017 10:54 - CONCLUSION: No acute cardiopulmonary process. Kirby Trejo MD Liver Ultrasound 11/10/17 0000 Signed Impressions: Service Date/Time: Friday, November 10, 2017 14:47 - CONCLUSION: 1. Liver and spleen are both enlarged with multiple diffuse hepatic fatty infiltration. 2. Linear echogenic area within the lateral mid body of the spleen may represent a focal area of scarring. 3. Benign renal cortical cysts of the right kidney. 4. Small 3 mm gallbladder polyp. Gallbladder is otherwise sonographically normal. Kirby Trejo MD Brain MRI 11/10/17 0000 Signed Impressions: Service Date/Time: Friday, November 10, 2017 20:51 - CONCLUSION: The eighth of diminished attenuation involving the left frontoparietal junction on the patient's prior CT examination corresponds to acute infarction in addition to multiple other areas of new acute infarction bilaterally not present on the prior MRI dated 09/10/2017 and previously seen acute infarctions on the right side on that study have been evolved. Findings were discussed with the patient's nurse Chandan on 11/10/2017 9:19 PM. Fernanda Padilla MD Physical Exam GENERAL: This is a well-nourished, well-developed patient, in no apparent distress. SKIN: No rashes, ecchymoses or lesions. Cool and dry. HEAD: Atraumatic. Normocephalic. No temporal or scalp tenderness. EYES: Pupils equal round and reactive. Extraocular motions intact. No scleral icterus. No injection or drainage. ENT: Nose without bleeding, purulent drainage or septal hematoma. Throat without erythema, tonsillar hypertrophy or exudate. Uvula midline. Airway patent. NECK: Trachea midline. Supple, nontender, no meningeal signs. CARDIOVASCULAR: HS audible. RESPIRATORY: Clear to auscultation. Breath sounds equal bilaterally. No wheezes , rales, or rhonchi. GASTROINTESTINAL: Abdomen soft, non-tender, nondistended. MUSCULOSKELETAL: Right foot with swelling, slight warmth, no opening noted. On medial aspect of ankle now swelling and increased discoloration noted. NEUROLOGICAL: Awake and alert. Cranial nerves II through XII intact. Expressive and receptive aphasia Psych cooperative IV line sites with no e.o infection. Assessment & Plan Remarks Sepsis Aortic valve Endocarditis Pseudomonas bacteremia [place] sensitive Enterococcus faecalis bacteremia Right foot cellulitis Possible Rt flexor dig longus tenosynovitis likely septic emboli related process or hematogenous spread of existing infection. Cerebral stroke (multiple embolic episodes likely microabscesses) Septic emboli in spleen and Renal infarct again related to septic emboli. h/o cocaine abuse h/o stroke in Aug 2017. New Left frontal infarct likely septic emboli related vs stroke from other risk factors. Recs Continue Cefepime IV (for PSAE endocarditis) Continue Ampicillin IV (for E.faecalis endocarditis) MRI foot reviewed by me. Podiatry consult placed for evaluation of right foot [place] with MRI findings concern for abscess, osteomyelitis. toni [place] he will follow overnight and assess if IR guided drainage needed. Follow cultures Follow clinically toni RN dw Patient Dw CM yday: Mom not willing to take patient back into her home. I will be off 11/19/2017 to 11/21/2017. Other ID MDs covering for me. Please check with [facility] call center. Jacinda Brock MD Nov 18, 2017 14:15
[2017-11-18 16:00] VITALS: BP 119/58; PULSE 93; RESP 20; TEMP 97.2; O2SAT 96
--- NOTE | 2017-11-18 16:24 | HHI.HCPN ---
Reason for visit a. To assist with evaluation and management of symptoms including: confusion b. To assist medical decision maker(s) with: better understanding of current medical conditions; weighing benefits/burdens of medical treatment options; making medical treatment decisions. (Ana Rodarte) Subjective/Interval History Pt seen today to follow up on comfort, goals. s/p MRI rt ankle for edema, pain. MRI = Rt flexor dig longus tenosynovitis likely septic emboli related process or hematogenous spread of existing infection; podiatry consulted per ID. Continued on Cefepime, ampicillin per ID for PSAE, E.faecalis endocarditis. S/p psychiatry eval, pt not capacitated to understand/make medical decisions. Labs today stable, within pt recent baseline. Pt seen in room no visitors present. He indicates he remembers me from yesterday however is not able to recall what we spoke of, significant expressive aphasia further limits. He is aware of more testing done to his right ankle today, review w him MRI findings and concern for possible infectious process there, podiatry consult pending. Review that it is recommended he cont w aggressive IV therapy for severe ongoing infection. He tells me he needs to get out of the hospital but is not able to express why. . Family/friend interactions call to pt mother/HCS to provide update, she is driving , she will call me back later. / (Ana Rodarte) Advance Directives Living Will: Never completed Health Care Surrogate: Copy in medical record Durable Power of Dye Tub Tender: Never completed (Ana Rodarte) Objective Vital Signs Date Time Temp Pulse Resp B/P (MAP) Pulse Ox O2 Delivery O2 Flow Rate FiO2 11/18/17 12:00 97.1 86 20 109/53 (71) 95 11/18/17 08:04 95 21 11/18/17 08:00 97.4 85 20 116/54 (74) 95 11/18/17 00:48 98.4 86 18 114/55 (74) 96 11/17/17 21:05 97.6 88 17 117/52 (73) 95 11/17/17 18:06 98 21 Intake & Output 11/18/17 11/18/17 07:00 19:00 Intake Total 1240 ml Balance 1240 ml Intake Oral 840 ml IV Total 400 ml # Voids 2 # Bowel Movements 1 Physical Exam CONSTITUTIONAL/GENERAL: This is an adequately nourished patient, no distress, disheveled. TUBES/LINES/DRAINS:PIV BUE. SKIN: No jaundice, rashes, or lesions. No wounds seen anteriorly. Skin warm/dry HEAD: Atraumatic. Normocephalic. CARDIOVASCULAR: Regular rate and rhythm without murmur. Peripheral pulses symmetric.+ slight edema right foot/ankle RESPIRATORY/CHEST: Symmetric, unlabored respirations. Clear to auscultation. Breath sounds equal bilaterally. GASTROINTESTINAL: Abdomen soft, non-tender, nondistended. No palpable masses. No guarding. Bowel sounds present. MUSCULOSKELETAL: Extremities without clubbing, cyanosis. +edema Rt ankle/foot. No joint tenderness or effusion noted. No mottling or clubbing. NEUROLOGICAL: Awake and alert.Oriented x2. +expressive aphasia, unable to complete sentences. Cooperative. Follows commands. Moves all 4 extremities. PSYCHIATRIC: No obvious anxiety/depression. no apparent hallucinations or other psychotic thought process. (Ana Rodarte) Diagnostic Tests Laboratory Laboratory Tests Test 11/16/17 21:49 11/18/17 04:58 C-Reactive Protein 11.50 MG/DL (0.00-0.30) White Blood Count 9.8 TH/MM3 (4.0-11.0) Red Blood Count 3.01 MIL/MM3 (4.50-5.90) Hemoglobin 8.4 GM/DL (13.0-17.0) Hematocrit 24.8 % (39.0-51.0) Mean Corpuscular Volume 82.3 FL (80.0-100.0) Mean Corpuscular Hemoglobin 28.0 PG (27.0-34.0) Mean Corpuscular Hemoglobin Concent 34.0 % (32.0-36.0) Red Cell Distribution Width 16.2 % (11.6-17.2) Platelet Count 528 TH/MM3 (150-450) Mean Platelet Volume 7.3 FL (7.0-11.0) Neutrophils (%) (Auto) 66.5 % (16.0-70.0) Lymphocytes (%) (Auto) 22.2 % (9.0-44.0) Monocytes (%) (Auto) 8.6 % (0.0-8.0) Eosinophils (%) (Auto) 1.8 % (0.0-4.0) Basophils (%) (Auto) 0.9 % (0.0-2.0) Neutrophils # (Auto) 6.5 TH/MM3 (1.8-7.7) Lymphocytes # (Auto) 2.2 TH/MM3 (1.0-4.8) Monocytes # (Auto) 0.8 TH/MM3 (0-0.9) Eosinophils # (Auto) 0.2 TH/MM3 (0-0.4) Basophils # (Auto) 0.1 TH/MM3 (0-0.2) CBC Comment DIFF FINAL Differential Comment Blood Urea Nitrogen 9 MG/DL (7-18) Creatinine 0.98 MG/DL (0.60-1.30) Random Glucose 95 MG/DL (74-106) Albumin 2.1 GM/DL (3.4-5.0) Calcium Level 8.2 MG/DL (8.5-10.1) Phosphorus Level 3.3 MG/DL (2.5-4.9) Magnesium Level 2.2 MG/DL (1.5-2.5) Sodium Level 140 MEQ/L (136-145) Potassium Level 3.7 MEQ/L (3.5-5.1) Chloride Level 106 MEQ/L (98-107) Carbon Dioxide Level 25.8 MEQ/L (21.0-32.0) Anion Gap 8 MEQ/L (5-15) Estimat Glomerular Filtration Rate 81 ML/MIN (>89) B-Type Natriuretic Peptide 741 PG/ML (0-100) (Ana Rodarte) Result Diagram: 11/18/17 0458 11/18/17 0458 Microbiology Microbiology Date/Time Source Procedure Growth Status 11/13/17 05:45 Blood Peripheral Aerobic Blood Culture - Final NO GROWTH IN 5 DAYS Complete 11/13/17 05:45 Blood Peripheral Anaerobic Blood Culture - Final NO GROWTH IN 5 DAYS Complete 11/10/17 11:15 Nasal Washing Influenza Types A,B Antigen (SERENITY) - Final NEGATIVE FOR FLU A AND B ANTIGEN.... Complete 11/10/17 14:20 Urine Catheterized Urine Urine Culture - Final NO GROWTH IN 48 HOURS. Complete Imaging Last Impressions Ankle MRI 11/17/17 0000 Signed Impressions: Service Date/Time: Friday, November 17, 2017 21:51 - CONCLUSION: 1. Normal marrow edema with no evidence of osteomyelitis. 2. Soft tissue edema along the medial ankle with 1.2 cm focal area of abnormality which could represent a small abscess or cystic structure. This did not enhance. 3. Mild tenosynovitis involving the flexor digitorum longus tendon, tibialis posterior tendon and peroneus longus tendon Jerad Santos MD Lower Extremity Ultrasound 11/16/17 0000 Signed Impressions: Service Date/Time: Thursday, November 16, 2017 14:41 - CONCLUSION: 1. Negative for deep venous thrombosis. Seth Verma MD Chest CT 11/16/17 0000 Signed Impressions: Service Date/Time: Thursday, November 16, 2017 12:55 - CONCLUSION: 1. Trace right and small left pleural effusions with associated airspace consolidation at the lung bases. Differential considerations include aspiration or pneumonia with reactive effusions versus pleural effusions with compressive atelectasis. 2. Partially imaged right shaped defects in the azygous portions of the spleen which may reflect splenic infarcts. 3. Eccentric aortic valve calcifications consistent with prior history of aortic valve endocarditis. Russell Jose MD Abdomen/Pelvis CT 11/16/17 0000 Signed Impressions: Service Date/Time: Thursday, November 16, 2017 12:57 - CONCLUSION: 1. Stable probable embolic splenic and renal infarcts. 2. No acute abnormality or significant interval change. Specifically, no evidence for drainable abscess in the abdomen. Russell Jose MD Ankle X-Ray 11/14/17 0000 Signed Impressions: Service Date/Time: Tuesday, November 14, 2017 14:00 - CONCLUSION: Unremarkable examination of the right ankle. Valeriy Chapa MD Head CT 11/10/17 1036 Signed Impressions: Service Date/Time: Friday, November 10, 2017 12:16 - CONCLUSION: There is abnormal low density, likely representing cytotoxic edema, in the left frontal lobe. This very likely is related to a recent ischemic event. Reji Dasilva MD Chest X-Ray 11/10/17 1036 Signed Impressions: Service Date/Time: Friday, November 10, 2017 10:54 - CONCLUSION: No acute cardiopulmonary process. Kirby Trejo MD Liver Ultrasound 11/10/17 0000 Signed Impressions: Service Date/Time: Friday, November 10, 2017 14:47 - CONCLUSION: 1. Liver and spleen are both enlarged with multiple diffuse hepatic fatty infiltration. 2. Linear echogenic area within the lateral mid body of the spleen may represent a focal area of scarring. 3. Benign renal cortical cysts of the right kidney. 4. Small 3 mm gallbladder polyp. Gallbladder is otherwise sonographically normal. Kirby Trejo MD Brain MRI 11/10/17 0000 Signed Impressions: Service Date/Time: Friday, November 10, 2017 20:51 - CONCLUSION: The eighth of diminished attenuation involving the left frontoparietal junction on the patient's prior CT examination corresponds to acute infarction in addition to multiple other areas of new acute infarction bilaterally not present on the prior MRI dated 09/10/2017 and previously seen acute infarctions on the right side on that study have been evolved. Findings were discussed with the patient's nurse Chandan on 11/10/2017 9:19 PM. Fernanda Padilla MD (Ana Rodarte) Assessment and Plan Disease Oriented Problem List: (1) Severe sepsis (2) CVA (cerebral vascular accident) (3) Cocaine abuse (4) Aortic valve endocarditis (5) Bacteremia Symptom Scale: (1) Confusion (2) Pain Pertinent Non-Medical Issues Psychosocial: Spiritual: Legal:Pt admitted w confusion, aphasia. S/p recent CVA, + new areas infarct. Mental status fluctuates. Not clear he has full insight and ability to make decisions, though he may be able to participate in shared decision making. Psych eval pending. Mother is designated [facility]. Ethical issues impacting care:no ethical issues identified Important Contacts Mother Bhargavi Wallis [phone] daughter Agnes . Prognosis This pt was admitted for AMS, fever. He has findings of new (septic emboli) CVA , endocarditis, ongoing IV tx per ID. Pt remains very high risk for ongoing complications secondary to infectious process, even with ongoing aggressive treatment. . Code Status: No Code Plan * Legal decision maker:Pt admitted w confusion, aphasia. S/p recent CVA, + new areas infarct. Mental status fluctuates. Not clear he has full insight and ability to make decisions, though he may be able to participate in shared decision making at times. During my exam today he appears to have very limited insight and NOT able to make his own decisions. Psych eval completed, pt not capacitated to make his decisions at this time. Mother is designated HCS. . * Goals:Per initial palliative conversation: Pt mother does not feel he has good understanding of his conditions/needed treatments. She does not feel he will be able to care for himself. She is not able to be a primary caregiver for him, and is not certain that his daughter will be able to either, as she works manager cash and has a toddler. Pt mother does wish for current tx to be maximized to try to help pt improve, feels he will likely need intermediate designer placement for his care needs. She requests DNR status based on pt known wishes. She is open to ongoing discussions as clinical course evolves. She tells me dtr was supposed to speak to ID Dr ross conditions, if she has not, I will provide update. * CODE STATUS: DNR * SYMPTOMS: --confusion/AMS- recent CVA, + new embolic CVA this admission. mental status fluctuates. Hx drug abuse, "none recently". --pain- Pain to RLE , imaging negative, exam + edema but otherwise benign; he describes pain as Mild, cont to monitor ; s/p MRI, podiatry consult pending, concerning for abscess r/t septic emboli. * Palliative care will continue to follow during hospital course as condition evolves, to assist patient/decision-maker with understanding of medical conditions, weighing benefits/burdens of treatment options, for clarification of goals of treatment. Additionally will assist with any symptoms of palliative concern . (Ana Rodarte) Attestation To help prompt me to consider important information that might be impacting today's encounter and assessment, information from prior notes written by myself or my colleagues may have been "brought forward" into today's note. My signature on this note, however, is an attestation that I personally performed the exam, history, and/or decision-making noted today, and, unless otherwise indicated, the interactions with patient, family, and staff as well as the review of records all occurred today. I also attest that the listed assessment and stated plan reflect my best clinical judgment today based on the combination of historical information, prior notes, and today's exam/ interactions. When time spent is documented, it refers only to time spent today by the signer, or if indicated, combined time spent today by collaborating physician/nurse practitioner. (Ana Rodarte) Collaborating MD Comments Chart reviewed. Case discussed with palliative care CARE WORKER. Above CARE WORKER note reviewed and I concur. . (Rocky Salas MD) Ana Rodarte Nov 18, 2017 16:24 Rocky Salas MD Nov 24, 2017 17:24
[2017-11-18 20:05] VITALS: BP 117/46; PULSE 90; RESP 18; TEMP 96.5; O2SAT 98
--- NOTE | 2017-11-18 22:45 | HHI.PR ---
Subjective Remarks 52 years old male with H/O CVA last August presented to the ED with transitional change in mental status not being able to verbalize words patient seems to be able to understand words however he cannot answer verbally which is consistent with expressive aphasia he said he has been having sweating since last night started with a weakness on his left side, there was a fever of 103 with positive chills, patient denied any pain, he reported cough with no significant phlegm, he denied any diarrhea abdominal pain nausea vomiting or dysuria As mentioned above patient had multiple bilateral small ischemic stroke in August 2017 he was seen by neurologist and sent home on baby aspirin 2 tablets In the previous admission there was a concern for right heart endocarditis however NOHELIA did not reveal any vegetation 2-15 SEEN IN ICU QUITE APHASIC PASSED SWALLOW EVAL NEEDS ECHO- MAY NEED NOHELIA DW RN AND PT OK FOR OUT OF ICU 2-16 PATIENT HAD ECHO WILL NOT NEED A NOHELIA DUE TO ABNORMAL VALVE NO NEW COMPLAINTS DW RN AND PT INCREASE ACTIVITY. 2-17 POSITIVE BLOOD CULTURES WILL NEED HALF-WAY ANTIBIOTICS REMAINS APHASIC 2-18 Patient seen and examined this morning. Afebrile vital signs stable. Difficult to communicate due to patient's current aphasia. Does report that he is having some pain and swelling of the right ankle. Unaware of any injury to the right ankle. We will get imaging of the right ankle. Understands that he is to continue IV antibiotics due to the endocarditis. He is willing to give 1 week in this hospital and then he will leave regardless of medical advice. 2-19 WILL NEED HALF-WAY ANTIBIOTICS FOR ENDOCARDITIS TREATMENT ID TO COME UP WITH ASSISTED PLAN DW RN AND PT //Sepsis //Aortic valve Endocarditis AMPICILLIN AND CEFEPIME //Pseudomonas bacteremia CEFEPIME //[place] sensitive Enterococcus faecalis bacteremia AMPICILLIN //h/o cocaine abuse //h/o stroke in Aug 2017. NEEDS SPEECH EVAL FOR APHASIA = 11/16. Patient says he is feeling fatigued as yesterday. Reports right lower extremity ankle and foot pain. =11/17. Patient seen this morning. Reports he continues to feel generally fatigued without change today. Denies any chest pain or shortness of breath. He reports continued right ankle pain, not worsened today. Denies any nausea or vomiting. Patient is amenable to discussion with palliative care. 11/18Patient seen this morning around 9 AM. No acute changes. Patient reports continued right ankle pain. Denies any chest pain or shortness of breath. . Objective Vital Signs Date Time Temp Pulse Resp B/P (MAP) Pulse Ox O2 Delivery O2 Flow Rate FiO2 11/18/17 20:05 96.5 90 18 117/46 (69) 98 11/18/17 16:00 97.2 93 20 119/58 (78) 96 11/18/17 12:00 97.1 86 20 109/53 (71) 95 11/18/17 08:04 95 21 11/18/17 08:00 97.4 85 20 116/54 (74) 95 11/18/17 00:48 98.4 86 18 114/55 (74) 96 I/O 11/17/17 11/17/17 11/17/17 11/18/17 11/18/17 11/18/17 07:00 15:00 23:00 07:00 15:00 23:00 Intake Total 760 ml 1200 ml 480 ml 760 ml 480 ml Balance 760 ml 1200 ml 480 ml 760 ml 480 ml Intake Oral 360 ml 1200 ml 480 ml 360 ml 480 ml IV Total 400 ml 400 ml # Voids 1 3 1 1 2 # Bowel Movements 0 1 1 0 1 Result Diagram: 11/18/1745711/18/17457 Objective Remarks GENERAL: Patient lying in bed. Appears comfortable.patient oriented to place, not oriented to month or year today. SKIN: Warm and dry. HEAD: Normocephalic. EYES: No scleral icterus. No injection or drainage. NECK: Supple, trachea midline. No JVD or lymphadenopathy. CARDIOVASCULAR: Regular rate and rhythm without murmurs, gallops, or rubs. RESPIRATORY: Breath sounds equal bilaterally. No accessory muscle use. GASTROINTESTINAL: Abdomen soft, non-tender, nondistended. MUSCULOSKELETAL: No cyanosis. 1+ edema on the right lower extremity. No erythema. Is tender to palpation. No broken skin. no chnage BACK: Nontender without obvious deformity. No CVA tenderness. A/P Assessment and Plan 52 years old male with history of cocaine abuse and recent CVA presented with Aortic Valve Endocarditis //AORTIC VALVE ENDOCARDITIS = Effect on multiple organ systems. Please see imaging above. =MRI/MRA, ultrasound of the carotid, 2D echo has been DONE Continue on broad-spectrum antibiotics as per infectious disease Consult neurology=- has signed off- = infectious disease managing. Continue antibiotics as per infectious disease. CT chest with pneumonia likely secondary to infected emboli. Appreciate infectious disease assistance. //Steatosis on liver US -10/29 etoh. f/u PCP //Swollen Ankle -xray negative for acute process Still with swelling. We will check Doppler right lower extremity. = Ultrasound negative for DVT. No sign of acute ankle infection. Continue to monitor. //Social situation. = Patient with history of IV drug use, noncompliance. Patient has requested to forego treatment, but given his current mental state I am uncertain that he is capable of making this particular decision. Will consult psychiatry. Discussed at multidisciplinary rounds. Patient also with poor prognosis. Will consult palliative care to discuss options going forward with the patient and family. = Palliative care following, appreciate assistance. = Psychiatry has deemed patient incapable of making his own decisions or leaving AMA at this time. Patient's orientation apparently waxing and waning. DVT prophylaxis Discharge Planning Continues on IV antibiotics for bacteremia Pending infectious disease clearance. Patient is self-pay. Patient lives at home with mother. Mother is unwilling to administer home IV antibiotics. Psychiatry consult for capacity, orientation waxing and waning, unable to make important medical decisions. Palliative care following. Appreciate assistance Expect it will be some time Haresh Mcghee MD Nov 18, 2017 22:45
[2017-11-19 00:10] VITALS: BP 126/56; PULSE 88; RESP 17; TEMP 97.2; O2SAT 97
[2017-11-19] MEDS: AMPICILLIN INJ 2,000 MG in SODIUM CHLORIDE 0.9% INJ 100 ML IV SCH ×6 (01:23→20:58)
[2017-11-19] MEDS: HEPARIN SODIUM - SQ 10,000 UNITS/ML VIAL SQ SCH ×3 (05:10→22:11)
[2017-11-19] MEDS: CEFEPIME INJ 2,000 MG in SODIUM CHLORIDE 0.9% INJ 100 ML IV SCH ×3 (06:06→22:12)
--- NOTE | 2017-11-19 07:38 | MB ---
cc: NI NINO DPM DATE OF CONSULTATION 11/18/2017 REASON FOR CONSULTATION Right ankle cellulitis, possible abscess seen on MRI. HISTORY OF PRESENT ILLNESS This is a 52-year-old male who apparently was admitted for severe sepsis and altered mental status. The patient was originally admitted with weakness on his left side, fever of 103, chills. Previous admission showed endocarditis, however NOHELIA did not show any vegetation. Infectious disease ordered MRI as a thorough workup with abnormal findings. Currently I am seeing the patient bedside asking if he has a history of injection in this area, incident or injury. He adamantly denies. He is unsure if the area is worsening since admission and start of antibiotics. ALLERGIES NO KNOWN DRUG ALLERGIES. MEDICATIONS Inpatient medications: 1. Ampicillin daily 2. Cefepime Please see complete med list in chart. PHYSICAL EXAM VITALS: Temperature 97.2, pulse rate 93, respiratory rate 20, blood pressure 119/58, pulse ox is 96% on room air. GENERAL: This is an alert and oriented gentleman. He is not the best historian, but he is verbal and appropriate. EXTREMITIES: Bilateral lower extremities examined. Right lower extremity, there is noted to be induration, mild redness and tenderness of the posterior medial ankle. The focal point of tenderness was felt just at the level of the posterior neurovascular bundle. Arterial Doppler was also used at this area and there was audible posterior tibialis tendon. The patient was capable of dorsiflexion, plantar flexion, inversion, eversion. All tendons appeared to be intact. The anterior ankle joint was not felt to be septic or full of fluid. The Achilles also was palpated and there was no sign of fluid in this area. Pedal pulses palpable. Left lower extremity without any issue. LABORATORY FINDINGS White blood cell 9.8 trending down from 12.5, hemoglobin/hematocrit 8/24, platelet count 528. Chem-7 sodium 140, potassium 3.7, chloride 106, CO2 25.8, BUN is 9, creatinine 0.98, random glucose 95. Microbial findings peripheral blood culture of 2.5 is growing Pseudomonas, previous cultures are growing Pseudomonas and E. Faecalis. IMAGING FINDINGS Ankle x-ray is unremarkable. However, the MRI soft tissue edema along the medial ankle with a 1.2 cm focal area of abnormality which could represent small abscess or cyst structure. Upon my view of the images, this is very close to the neurovascular bundle possibly communicating with posterior tibial vein. ASSESSMENT/PLAN Posterior ankle abscess, vasculitis, lower extremity cellulitis. My recommendation is to compress, elevate and warm the extremity to see if there is improvement over the next 24-48 hours. I may recommend an ultrasound to visualize the flow status around this lesion to see if this correlates with any pseudoaneurysm or true aneurysm of the posterior tibial vein or artery before recommending incision and drainage. Interventional radiology may be a good recommendation if this area or tissue wishes to be sampled. I reviewed my findings with infectious disease. I will continue to follow along in the next 1-2 days to check progress. No surgery planned at this point. MEENAKSHI Quintanilla/JOY /5:59 PM /7:09 AM
[2017-11-19 08:00] VITALS: BP 125/61; PULSE 90; RESP 17; TEMP 97.4; O2SAT 93
[2017-11-19] MEDS: SODIUM CHLOR 0.9% 1000 ML INJ 1,000 ML IV SCH ×2 (08:07→17:51)
[2017-11-19] MEDS: MUPIROCIN 2% OINT 1 APPLIC/GM SYR NASAL SCH ×2 (09:00→20:58)
[2017-11-19] MEDS: SODIUM CHLORIDE 0.9% FLUSH 10 ML FLUSH IV FLUSH SCH ×2 (09:00→20:58)
[2017-11-19] MEDS: DOCUSATE SODIUM 50 MG/SENNA 8.6 MG TAB PO SCH ×2 (09:00→20:57)
[2017-11-19 12:10] VITALS: BP 108/52; PULSE 85; RESP 17; TEMP 98.1; O2SAT 96
--- NOTE | 2017-11-19 12:13 | RADRPT ---
EXAM DATE/TIME: 11/19/2017 08:30 [facility] COMPARISON: MRI ANKLE RIGHT W & W/O CONTRAST, November 17, 2017, 21:51. INDICATIONS : MRI shows abscess, checking for blood flow in or around lesion of ankle, abscess. MEDICAL HISTORY : CVA. Tobacco use. SURGICAL HISTORY : Right hand surgery. ENCOUNTER: Subsequent ACUITY: 1 day PAIN SCORE: 10/10 LOCATION: Right leg. AREA EVALUATED: Left medial ankle. FINDINGS: Real-time ultrasound examination was targeted to the medial ankle region to evaluate a 1.2 cm area of signal abnormality in the posterior medial soft tissues characterized by T1 and T2 prolongation. Th e ultrasound demonstrates soft tissue thickening and a focal irregular shaped hypoechoic area which m easures 1.2 x 1.1 x 0.8 cm. There is heterogeneous echotexture within this area and through transmis toribio. No increased flow seen by color Doppler. CONCLUSION: Complex fluid collection in the posterior medial soft tissues measuring up to 1.2 cm, correlating wit h the findings seen on recent MRI. Seth Verma MD on November 19, 2017 at 12:08 Board Certified Radiologist. This report was verified electronically.
--- NOTE | 2017-11-19 14:00 | HHI.IDPN ---
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 Patient has expressive as well as possible receptive aphasia as a result of that. His mother reports he lives with her. He does go out of the home to meet friends. To the best of her knowledge he does not do drugs but she would not be surprised if he did. She reported he had complained of sweating and left side weakness with fever 103 F associated with chills. He denies any pain. He reports cough with phlegm. He denies any N/V or diarrhea. He was seen by Neuro and it appears he is non compliant with medications including aspirin prescribed last admission. Last admission patient was treated for endocarditis possibly per mother. Patient was sepsis and workup revealed Gram neg bacteremia and ID was consulted due to suspicion of endocarditis. 2D ECHO pending. Notes reviewed Temps ok Pain R foot/ankle BC 11/10 PSAE and Enterococcua BC 11/11 PSAE BC 11/13 negative WBC down to normal Podiatry evaluation in progress MRI done with abnormal findings in tendon. No rash No diarrhea Antibiotics Cefepime IV Ampicillin IV Lines Line sites with no e.o infection Past Medical History History of CVA August 2017 h/o endocarditis in past. Previous PSAE and Enterococcal bacteremia last 09/12 Allergies: Coded Allergies: No Known Allergies (Verified Allergy, Unknown, 11/10/17) Objective . Vital Signs Date Time Temp Pulse Resp B/P (MAP) Pulse Ox O2 Delivery O2 Flow Rate FiO2 11/19/17 12:10 98.1 85 17 108/52 (70) 96 11/19/17 10:13 Room Air 11/19/17 08:00 97.4 90 17 125/61 (82) 93 11/19/17 00:10 97.2 88 17 126/56 (79) 97 11/18/17 20:05 96.5 90 18 117/46 (69) 98 11/18/17 16:00 97.2 93 20 119/58 (78) 96 . Laboratory Tests Test 11/18/17 04:58 White Blood Count 9.8 TH/MM3 Red Blood Count 3.01 MIL/MM3 Hemoglobin 8.4 GM/DL Hematocrit 24.8 % Mean Corpuscular Volume 82.3 FL Mean Corpuscular Hemoglobin 28.0 PG Mean Corpuscular Hemoglobin Concent 34.0 % Red Cell Distribution Width 16.2 % Platelet Count 528 TH/MM3 Mean Platelet Volume 7.3 FL Neutrophils (%) (Auto) 66.5 % Lymphocytes (%) (Auto) 22.2 % Monocytes (%) (Auto) 8.6 % Eosinophils (%) (Auto) 1.8 % Basophils (%) (Auto) 0.9 % Neutrophils # (Auto) 6.5 TH/MM3 Lymphocytes # (Auto) 2.2 TH/MM3 Monocytes # (Auto) 0.8 TH/MM3 Eosinophils # (Auto) 0.2 TH/MM3 Basophils # (Auto) 0.1 TH/MM3 CBC Comment DIFF FINAL Differential Comment Laboratory Tests Test 11/18/17 04:58 Blood Urea Nitrogen 9 MG/DL Creatinine 0.98 MG/DL Random Glucose 95 MG/DL Albumin 2.1 GM/DL Calcium Level 8.2 MG/DL Phosphorus Level 3.3 MG/DL Magnesium Level 2.2 MG/DL Sodium Level 140 MEQ/L Potassium Level 3.7 MEQ/L Chloride Level 106 MEQ/L Carbon Dioxide Level 25.8 MEQ/L Anion Gap 8 MEQ/L Estimat Glomerular Filtration Rate 81 ML/MIN B-Type Natriuretic Peptide 741 PG/ML Imaging Lower Extremity Ultrasound 11/19/17 0000 Signed Impressions: Service Date/Time: Sunday, November 19, 2017 08:30 - CONCLUSION: Complex fluid collection in the posterior medial soft tissues measuring up to 1.2 cm, correlating with the findings seen on recent MRI. Seth Verma MD Ankle MRI 11/17/17 0000 Signed Impressions: Service Date/Time: Friday, November 17, 2017 21:51 - CONCLUSION: 1. Normal marrow edema with no evidence of osteomyelitis. 2. Soft tissue edema along the medial ankle with 1.2 cm focal area of abnormality which could represent a small abscess or cystic structure. This did not enhance. 3. Mild tenosynovitis involving the flexor digitorum longus tendon, tibialis posterior tendon and peroneus longus tendon Jerad Santos MD Head CT 11/10/17 1036 Signed Impressions: Service Date/Time: Friday, November 10, 2017 12:16 - CONCLUSION: There is abnormal low density, likely representing cytotoxic edema, in the left frontal lobe. This very likely is related to a recent ischemic event. Reji Dasilva MD Chest X-Ray 11/10/17 1036 Signed Impressions: Service Date/Time: Friday, November 10, 2017 10:54 - CONCLUSION: No acute cardiopulmonary process. Kirby Trejo MD Liver Ultrasound 11/10/17 0000 Signed Impressions: Service Date/Time: Friday, November 10, 2017 14:47 - CONCLUSION: 1. Liver and spleen are both enlarged with multiple diffuse hepatic fatty infiltration. 2. Linear echogenic area within the lateral mid body of the spleen may represent a focal area of scarring. 3. Benign renal cortical cysts of the right kidney. 4. Small 3 mm gallbladder polyp. Gallbladder is otherwise sonographically normal. Kirby Trejo MD Brain MRI 11/10/17 0000 Signed Impressions: Service Date/Time: Friday, November 10, 2017 20:51 - CONCLUSION: The eighth of diminished attenuation involving the left frontoparietal junction on the patient's prior CT examination corresponds to acute infarction in addition to multiple other areas of new acute infarction bilaterally not present on the prior MRI dated 09/10/2017 and previously seen acute infarctions on the right side on that study have been evolved. Findings were discussed with the patient's nurse Chandan on 11/10/2017 9:19 PM. Fernanda Padilla MD Physical Exam GENERAL: Awake and alert, NAD SKIN: No rashes, ecchymoses or lesions. Cool and dry. HEAD: Atraumatic. Normocephalic. No temporal or scalp tenderness. EYES: Pale conjunctiva, no petechia, no hemorrhage ENT: Nose without bleeding, purulent drainage or septal hematoma. MOist mucosa NECK: Trachea midline. Supple, nontender, no meningeal signs. CARDIOVASCULAR: HS audible. RESPIRATORY: Clear to auscultation. Breath sounds equal bilaterally. No wheezes , rales, or rhonchi. GASTROINTESTINAL: Abdomen soft, non-tender, nondistended. MUSCULOSKELETAL: Right foot with swelling, slight warmth, no opening noted. On medial aspect of ankle with swelling and erythema better; able to move ankle joint NEUROLOGICAL: Awake and alert. Cranial nerves II through XII intact. Expressive and receptive aphasia Psych cooperative IV line sites with no e.o infection. Assessment & Plan Remarks Sepsis Aortic valve Endocarditis Pseudomonas bacteremia Valdez sensitive Enterococcus faecalis bacteremia Right foot cellulitis Possible Rt flexor dig longus tenosynovitis likely septic emboli related process or hematogenous spread of existing infection. Cerebral stroke (multiple embolic episodes likely microabscesses) Septic emboli in spleen and Renal infarct again related to septic emboli. h/o cocaine abuse h/o stroke in Aug 2017. New Left frontal infarct likely septic emboli related vs stroke from other risk factors. Recs Continue Cefepime IV (for PSAE endocarditis) Continue Ampicillin IV (for E.faecalis endocarditis) Podiatry evaluating R foot/ankle Monitor temps Monitor progress Tory Owens MD Nov 19, 2017 14:00
--- NOTE | 2017-11-19 15:40 | HHI.HCPN ---
Reason for visit a. To assist with evaluation and management of symptoms including: confusion b. To assist medical decision maker(s) with: better understanding of current medical conditions; weighing benefits/burdens of medical treatment options; making medical treatment decisions. (Ana Rodarte) Subjective/Interval History Pt seen today to follow up on comfort, goals. Received call from patient mother prior to my arrival on patient unit. Updated her per review of electronic medical record. She requests I go ahead and call the patient's daughter to provide an update so she is able to better understand patient's conditions and complexity of his illness. She expresses that she does not feel the patient has full awareness or understanding of his conditions or ability to understand implications of any decisions he may make. s/p podiatry consultation for evaluation of right foot pain, recent imaging. His assessment:Posterior ankle abscess, vasculitis, lower extremity cellulitis. Recommends elevation, compression and warming over the next 1-2 days. Also ordered ultrasound for identification of possible pseudoaneurysm of posterior tibial vein or artery. No plans for I&D for invasive procedure at this time. May consider IR if requires tissue sample. ID continues to follow, antibiotics continued. ST following patient noting patient participative but frustrated with aphasia. Pt seen in room no visitors present. He is sleeping but arouses easily. He is partially oriented however has significant expressive aphasia and becomes irritable and curses swear words when he cannot express what he is trying to say. He indicates he is upset about his foot because "that was the only reason I came to the hospital ". Explore with him diagnostics up until this point and ongoing monitoring of his foot and ankle, however there is not a significant change in clinical course even with current imaging findings of right foot. Further explore that he has significant infection to his heart and will require ongoing monitoring and antibiotics to treat that. He is reluctant to answer my questions pertaining to ROS. He does endorse chest pain however gets irritable when I ask him when, he denies current chest pain though tells me he may have had it in the past day or so but cannot further qualify. Discussed with sustainable communities designer, they have questions regarding goals, discharge planning and possible options. Review with them that patient mother has expressed aggressive goal short of resuscitation at this time, and that she is unable to care for him 24/ 7 home, and that he will probably require placement to complete IV treatment and ongoing rehabilitation therapies for his aphasia etc. secondary to stroke. . Family/friend interactions Call again to patient mother updated on podiatry senior treasury consultant recommendations. Following that call to daughter Agnes; explore with her hospitalization, current conditions, current treatments in place, and possible trajectory going forward. Explored with her patient does remain at risk for ongoing complications and even potentially sepsis, secondary to endocarditis. All questions answered. She is appreciative of update. . (Ana Rodarte) Advance Directives Living Will: Never completed Health Care Surrogate: Copy in medical record Durable Power of Retail Furniture Sales: Never completed (Ana Rodarte) Objective Vital Signs Date Time Temp Pulse Resp B/P (MAP) Pulse Ox O2 Delivery O2 Flow Rate FiO2 11/19/17 12:10 98.1 85 17 108/52 (70) 96 11/19/17 10:13 Room Air 11/19/17 08:00 97.4 90 17 125/61 (82) 93 11/19/17 00:10 97.2 88 17 126/56 (79) 97 11/18/17 20:05 96.5 90 18 117/46 (69) 98 11/18/17 16:00 97.2 93 20 119/58 (78) 96 Intake & Output 11/19/17 11/19/17 06:59 18:59 Intake Total 1220 ml Balance 1220 ml Intake Oral 720 ml IV Total 500 ml # Voids 4 # Bowel Movements 0 Physical Exam CONSTITUTIONAL/GENERAL: This is an adequately nourished patient, no distress, disheveled. TUBES/LINES/DRAINS:PIV BUE. SKIN: No jaundice, rashes, or lesions. No wounds seen anteriorly. Skin warm/dry HEAD: Atraumatic. Normocephalic. CARDIOVASCULAR: Regular rate and rhythm without murmur. Peripheral pulses symmetric.+ slight edema right foot/ankle RESPIRATORY/CHEST: Symmetric, unlabored respirations. Clear to auscultation. Breath sounds equal bilaterally. GASTROINTESTINAL: Abdomen soft, non-tender, nondistended. No palpable masses. No guarding. Bowel sounds present. MUSCULOSKELETAL: Extremities without clubbing, cyanosis. +edema Rt ankle/foot. No mottling or clubbing. NEUROLOGICAL: Awake and alert.Oriented x2. +expressive aphasia, unable to complete sentences. Irritable. Follows commands. Moves all 4 extremities. PSYCHIATRIC: Irritable. no apparent hallucinations or other psychotic thought process. (Ana Rodarte) Diagnostic Tests Laboratory Laboratory Tests Test 11/16/17 21:49 11/18/17 04:58 C-Reactive Protein 11.50 MG/DL (0.00-0.30) White Blood Count 9.8 TH/MM3 (4.0-11.0) Red Blood Count 3.01 MIL/MM3 (4.50-5.90) Hemoglobin 8.4 GM/DL (13.0-17.0) Hematocrit 24.8 % (39.0-51.0) Mean Corpuscular Volume 82.3 FL (80.0-100.0) Mean Corpuscular Hemoglobin 28.0 PG (27.0-34.0) Mean Corpuscular Hemoglobin Concent 34.0 % (32.0-36.0) Red Cell Distribution Width 16.2 % (11.6-17.2) Platelet Count 528 TH/MM3 (150-450) Mean Platelet Volume 7.3 FL (7.0-11.0) Neutrophils (%) (Auto) 66.5 % (16.0-70.0) Lymphocytes (%) (Auto) 22.2 % (9.0-44.0) Monocytes (%) (Auto) 8.6 % (0.0-8.0) Eosinophils (%) (Auto) 1.8 % (0.0-4.0) Basophils (%) (Auto) 0.9 % (0.0-2.0) Neutrophils # (Auto) 6.5 TH/MM3 (1.8-7.7) Lymphocytes # (Auto) 2.2 TH/MM3 (1.0-4.8) Monocytes # (Auto) 0.8 TH/MM3 (0-0.9) Eosinophils # (Auto) 0.2 TH/MM3 (0-0.4) Basophils # (Auto) 0.1 TH/MM3 (0-0.2) CBC Comment DIFF FINAL Differential Comment Blood Urea Nitrogen 9 MG/DL (7-18) Creatinine 0.98 MG/DL (0.60-1.30) Random Glucose 95 MG/DL (74-106) Albumin 2.1 GM/DL (3.4-5.0) Calcium Level 8.2 MG/DL (8.5-10.1) Phosphorus Level 3.3 MG/DL (2.5-4.9) Magnesium Level 2.2 MG/DL (1.5-2.5) Sodium Level 140 MEQ/L (136-145) Potassium Level 3.7 MEQ/L (3.5-5.1) Chloride Level 106 MEQ/L (98-107) Carbon Dioxide Level 25.8 MEQ/L (21.0-32.0) Anion Gap 8 MEQ/L (5-15) Estimat Glomerular Filtration Rate 81 ML/MIN (>89) B-Type Natriuretic Peptide 741 PG/ML (0-100) (Ana Rodarte) Result Diagram: 11/18/17 0458 11/18/17 0458 Microbiology Microbiology Date/Time Source Procedure Growth Status 11/13/17 05:45 Blood Peripheral Aerobic Blood Culture - Final NO GROWTH IN 5 DAYS Complete 11/13/17 05:45 Blood Peripheral Anaerobic Blood Culture - Final NO GROWTH IN 5 DAYS Complete 11/10/17 11:15 Nasal Washing Influenza Types A,B Antigen (SERENITY) - Final NEGATIVE FOR FLU A AND B ANTIGEN.... Complete 11/10/17 14:20 Urine Catheterized Urine Urine Culture - Final NO GROWTH IN 48 HOURS. Complete Imaging Last Impressions Lower Extremity Ultrasound 11/19/17 0000 Signed Impressions: Service Date/Time: Sunday, November 19, 2017 08:30 - CONCLUSION: Complex fluid collection in the posterior medial soft tissues measuring up to 1.2 cm, correlating with the findings seen on recent MRI. Seth Verma MD Ankle MRI 11/17/17 0000 Signed Impressions: Service Date/Time: Friday, November 17, 2017 21:51 - CONCLUSION: 1. Normal marrow edema with no evidence of osteomyelitis. 2. Soft tissue edema along the medial ankle with 1.2 cm focal area of abnormality which could represent a small abscess or cystic structure. This did not enhance. 3. Mild tenosynovitis involving the flexor digitorum longus tendon, tibialis posterior tendon and peroneus longus tendon Jerad Santos MD Chest CT 11/16/17 0000 Signed Impressions: Service Date/Time: Thursday, November 16, 2017 12:55 - CONCLUSION: 1. Trace right and small left pleural effusions with associated airspace consolidation at the lung bases. Differential considerations include aspiration or pneumonia with reactive effusions versus pleural effusions with compressive atelectasis. 2. Partially imaged right shaped defects in the azygous portions of the spleen which may reflect splenic infarcts. 3. Eccentric aortic valve calcifications consistent with prior history of aortic valve endocarditis. Russell Jose MD Abdomen/Pelvis CT 11/16/17 0000 Signed Impressions: Service Date/Time: Thursday, November 16, 2017 12:57 - CONCLUSION: 1. Stable probable embolic splenic and renal infarcts. 2. No acute abnormality or significant interval change. Specifically, no evidence for drainable abscess in the abdomen. Russell Jose MD Ankle X-Ray 11/14/17 0000 Signed Impressions: Service Date/Time: Tuesday, November 14, 2017 14:00 - CONCLUSION: Unremarkable examination of the right ankle. Valeriy Chapa MD Head CT 11/10/17 1036 Signed Impressions: Service Date/Time: Friday, November 10, 2017 12:16 - CONCLUSION: There is abnormal low density, likely representing cytotoxic edema, in the left frontal lobe. This very likely is related to a recent ischemic event. Reji Dasilva MD Chest X-Ray 11/10/17 1036 Signed Impressions: Service Date/Time: Friday, November 10, 2017 10:54 - CONCLUSION: No acute cardiopulmonary process. Kirby Trejo MD Liver Ultrasound 11/10/17 0000 Signed Impressions: Service Date/Time: Friday, November 10, 2017 14:47 - CONCLUSION: 1. Liver and spleen are both enlarged with multiple diffuse hepatic fatty infiltration. 2. Linear echogenic area within the lateral mid body of the spleen may represent a focal area of scarring. 3. Benign renal cortical cysts of the right kidney. 4. Small 3 mm gallbladder polyp. Gallbladder is otherwise sonographically normal. Kirby Trejo MD Brain MRI 11/10/17 0000 Signed Impressions: Service Date/Time: Friday, November 10, 2017 20:51 - CONCLUSION: The eighth of diminished attenuation involving the left frontoparietal junction on the patient's prior CT examination corresponds to acute infarction in addition to multiple other areas of new acute infarction bilaterally not present on the prior MRI dated 09/10/2017 and previously seen acute infarctions on the right side on that study have been evolved. Findings were discussed with the patient's nurse Chandan on 11/10/2017 9:19 PMDasha Padilla MD (Ana Rodarte) Assessment and Plan Disease Oriented Problem List: (1) Severe sepsis (2) CVA (cerebral vascular accident) (3) Cocaine abuse (4) Aortic valve endocarditis (5) Bacteremia Symptom Scale: (1) Confusion (2) Pain Pertinent Non-Medical Issues Psychosocial: Spiritual: Legal:Pt admitted w confusion, aphasia. S/p recent CVA, + new areas infarct. Mental status fluctuates. Not clear he has full insight and ability to make decisions, though he may be able to participate in shared decision making. Psych eval pending. Mother is designated HCS. Ethical issues impacting care:no ethical issues identified Important Contacts Mother Bhargavi Wallis [phone] daughter Agnes . Prognosis This pt was admitted for AMS, fever. He has findings of new (septic emboli) CVA , endocarditis, ongoing IV tx per ID. Pt remains very high risk for ongoing complications secondary to infectious process, even with ongoing aggressive treatment. . Code Status: No Code Plan * Legal decision maker:Pt admitted w confusion, aphasia. S/p recent CVA, + new areas infarct. Mental status fluctuates. Not clear he has full insight and ability to make decisions, though he may be able to participate in shared decision making at times. During my exam today he appears to have very limited insight and NOT able to make his own decisions. Psych eval completed, pt not capacitated to make his decisions at this time. Mother is designated HCS. . * Goals: Goals remain aggressive short of resuscitation. Pt mother does not feel he has good understanding of his conditions/needed treatments. She does not feel he will be able to care for himself. She is not able to be a primary caregiver for him, and is not certain that his daughter will be able to either, as she works tax director and has a toddler. Pt mother does wish for current tx to be maximized to try to help pt improve, feels he will likely need detention placement for his care needs. * CODE STATUS: DNR * SYMPTOMS: --confusion/AMS- recent CVA, + new embolic CVA this admission. mental status fluctuates. Hx drug abuse, "none recently". --pain- Pain to RLE , imaging negative, exam + edema but otherwise benign; he describes pain as Mild, cont to monitor ; s/p MRI, podiatry consult pending, concerning for abscess r/t septic emboli.s/p podiatry evaluation no invasive interventions planned at this time, monitoring over the next 1-2 days. * Palliative care will continue to follow during hospital course as condition evolves, to assist patient/decision-maker with understanding of medical conditions, weighing benefits/burdens of treatment options, for clarification of goals of treatment. Additionally will assist with any symptoms of palliative concern . (Ana Rodarte) Attestation To help prompt me to consider important information that might be impacting today's encounter and assessment, information from prior notes written by myself or my colleagues may have been "brought forward" into today's note. My signature on this note, however, is an attestation that I personally performed the exam, history, and/or decision-making noted today, and, unless otherwise indicated, the interactions with patient, family, and staff as well as the review of records all occurred today. I also attest that the listed assessment and stated plan reflect my best clinical judgment today based on the combination of historical information, prior notes, and today's exam/ interactions. When time spent is documented, it refers only to time spent today by the signer, or if indicated, combined time spent today by collaborating physician/nurse practitioner. (Ana Rodarte) Collaborating MD Comments Chart reviewed. Case discussed with palliative care PROGRESSIVE CARE NURSE. Above [place] note reviewed and I concur. . (Rocky Salas MD) Ana Rodarte Nov 19, 2017 15:40 Rocky Salas MD Nov 24, 2017 17:33
[2017-11-19 16:00] VITALS: BP 113/49; PULSE 84; RESP 17; TEMP 97.4; O2SAT 98
[2017-11-19 20:00] VITALS: BP 119/49; PULSE 81; RESP 16; TEMP 98; O2SAT 98
--- NOTE | 2017-11-19 23:55 | HHI.PR ---
Subjective Remarks 52 years old male with H/O CVA last August presented to the ED with transitional change in mental status not being able to verbalize words patient seems to be able to understand words however he cannot answer verbally which is consistent with expressive aphasia he said he has been having sweating since last night started with a weakness on his left side, there was a fever of 103 with positive chills, patient denied any pain, he reported cough with no significant phlegm, he denied any diarrhea abdominal pain nausea vomiting or dysuria As mentioned above patient had multiple bilateral small ischemic stroke in August 2017 he was seen by neurologist and sent home on baby aspirin 2 tablets In the previous admission there was a concern for right heart endocarditis however NOHELIA did not reveal any vegetation 2-15 SEEN IN ICU QUITE APHASIC PASSED SWALLOW EVAL NEEDS ECHO- MAY NEED NOHELIA DW RN AND PT OK FOR OUT OF ICU 2-16 PATIENT HAD ECHO WILL NOT NEED A NOHELIA DUE TO ABNORMAL VALVE NO NEW COMPLAINTS DW RN AND PT INCREASE ACTIVITY. 2-17 POSITIVE BLOOD CULTURES WILL NEED [facility] ANTIBIOTICS REMAINS APHASIC 2-18 Patient seen and examined this morning. Afebrile vital signs stable. Difficult to communicate due to patient's current aphasia. Does report that he is having some pain and swelling of the right ankle. Unaware of any injury to the right ankle. We will get imaging of the right ankle. Understands that he is to continue IV antibiotics due to the endocarditis. He is willing to give 1 week in this hospital and then he will leave regardless of medical advice. 2-19 WILL NEED [facility] ANTIBIOTICS FOR ENDOCARDITIS TREATMENT ID TO COME UP WITH SENIOR CARE PLAN DW RN AND PT //Sepsis //Aortic valve Endocarditis AMPICILLIN AND CEFEPIME //Pseudomonas bacteremia CEFEPIME //Valdez sensitive Enterococcus faecalis bacteremia AMPICILLIN //h/o cocaine abuse //h/o stroke in Aug 2017. NEEDS SPEECH EVAL FOR APHASIA = 11/16. Patient says he is feeling fatigued as yesterday. Reports right lower extremity ankle and foot pain. =11/17. Patient seen this morning. Reports he continues to feel generally fatigued without change today. Denies any chest pain or shortness of breath. He reports continued right ankle pain, not worsened today. Denies any nausea or vomiting. Patient is amenable to discussion with palliative care. 11/18Patient seen this morning around 9 AM. No acute changes. Patient reports continued right ankle pain. Denies any chest pain or shortness of breath. 11/19. Patient seen and examined this morning. Continues to report right ankle pain. Initially refusing IV antibiotics this morning. Patient is disoriented today, and I have informed him that he cannot refuse life-savingantibiotics. . Objective Vital Signs Date Time Temp Pulse Resp B/P (MAP) Pulse Ox O2 Delivery O2 Flow Rate FiO2 11/19/17 20:00 98.0 81 16 119/49 (72) 98 11/19/17 16:00 97.4 84 17 113/49 (70) 98 11/19/17 12:10 98.1 85 17 108/52 (70) 96 11/19/17 10:13 Room Air 11/19/17 08:00 97.4 90 17 125/61 (82) 93 11/19/17 00:10 97.2 88 17 126/56 (79) 97 I/O 11/19/17 11/19/17 11/19/17 11/20/17 11/20/17 11/20/17 07:00 15:00 23:00 07:00 15:00 23:00 Intake Total 760 ml 480 ml 509 ml Balance 760 ml 480 ml 509 ml Intake Oral 360 ml 480 ml IV Total 400 ml 509 ml # Voids 2 5 # Bowel Movements 0 0 Result Diagram: 11/18/1745711/18/17 0458 Objective Remarks GENERAL: Patient lying in bed. Appears comfortable.patient oriented to place, not oriented to month or year today. SKIN: Warm and dry. HEAD: Normocephalic. EYES: No scleral icterus. No injection or drainage. NECK: Supple, trachea midline. No JVD or lymphadenopathy. CARDIOVASCULAR: Regular rate and rhythm without murmurs, gallops, or rubs. RESPIRATORY: Breath sounds equal bilaterally. No accessory muscle use. GASTROINTESTINAL: Abdomen soft, non-tender, nondistended. MUSCULOSKELETAL: No cyanosis. trace edema on the right lower extremity. patient now has some erythema right lower extremity medially this has been marked with pen BACK: Nontender without obvious deformity. No CVA tenderness. A/P Assessment and Plan 52 years old male with history of cocaine abuse and recent CVA presented with Aortic Valve Endocarditis //AORTIC VALVE ENDOCARDITIS = Effect on multiple organ systems. Please see imaging above. =MRI/MRA, ultrasound of the carotid, 2D echo has been DONE Continue on broad-spectrum antibiotics as per infectious disease Consult neurology=- has signed off- = infectious disease managing. Continue antibiotics as per infectious disease. CT chest with pneumonia likely secondary to infected emboli. Appreciate infectious disease assistance. //Steatosis on liver US -10/29 etoh. f/u PCP //Swollen Ankle -xray negative for acute process Still with swelling. We will check Doppler right lower extremity. = Ultrasound negative for DVT. No sign of acute ankle infection. Continue to monitor. =11/19. There is some developing erythema without any fluctuance or broken skin over the right ankle. could just be that this is now visible secondary to improvement in edema. We'll continue to monitor erythematous area. //Social situation. = Patient with history of IV drug use, noncompliance. Patient has requested to forego treatment, but given his current mental state I am uncertain that he is capable of making this particular decision. Will consult psychiatry. Discussed at multidisciplinary rounds. Patient also with poor prognosis. Will consult palliative care to discuss options going forward with the patient and family. = Palliative care following, appreciate assistance. = Psychiatry has deemed patient incapable of making his own decisions or leaving AMA at this time. Patient's orientation apparently waxing and waning. DVT prophylaxis Discharge Planning Continues on IV antibiotics for bacteremia Pending infectious disease clearance. Patient is self-pay. Patient lives at home with mother. Mother is unwilling to administer home IV antibiotics. Psychiatry consult for capacity, orientation waxing and waning, unable to make important medical decisions. Palliative care following. Appreciate assistance Expect it will be some time Haresh Mcghee MD Nov 19, 2017 23:55
[2017-11-20] VITALS: BP 115/53; PULSE 83; RESP 16; TEMP 97.6; O2SAT 96
[2017-11-20] MEDS: AMPICILLIN INJ 2,000 MG in SODIUM CHLORIDE 0.9% INJ 100 ML IV SCH ×5 (01:08→20:49)
[2017-11-20] MEDS: HEPARIN SODIUM - SQ 10,000 UNITS/ML VIAL SQ SCH ×3 (05:51→20:50)
[2017-11-20] MEDS: CEFEPIME INJ 2,000 MG in SODIUM CHLORIDE 0.9% INJ 100 ML IV SCH ×3 (05:51→20:50)
[2017-11-20] MEDS: SODIUM CHLOR 0.9% 1000 ML INJ 1,000 ML IV SCH ×2 (05:52→12:30)
[2017-11-20 08:00] VITALS: BP 117/55; PULSE 82; RESP 18; TEMP 97.4; O2SAT 95
[2017-11-20] MEDS: SODIUM CHLORIDE 0.9% FLUSH 10 ML FLUSH IV FLUSH SCH ×2 (08:50→20:51)
[2017-11-20] MEDS: DOCUSATE SODIUM 50 MG/SENNA 8.6 MG TAB PO SCH ×2 (08:50→20:46)
[2017-11-20] MEDS: MUPIROCIN 2% OINT 1 APPLIC/GM SYR NASAL SCH ×2 (08:50→20:45)
--- NOTE | 2017-11-20 10:17 | HHI.PR ---
Subjective Remarks Right ankle with swelling no pain not much erythema. No fever or chills overnight. N0 n/v/d/c. Has intermittent chest pain , no pain at this time. Sattign well on room air. Objective Vitals Vital Signs Date Time Temp Pulse Resp B/P (MAP) Pulse Ox O2 Delivery O2 Flow Rate FiO2 11/20/17 08:00 97.4 82 18 117/ 95 11/20/17 00:00 97.6 83 16 115/53 (73) 96 11/19/17 20:00 98.0 81 16 119/49 (72) 98 11/19/17 16:00 97.4 84 17 113/49 (70) 98 11/19/17 12:10 98.1 85 17 108/52 (70) 96 I/O 11/19/17 11/19/17 11/19/17 11/20/17 11/20/17 11/20/17 07:00 15:00 23:00 07:00 15:00 23:00 Intake Total 760 ml 480 ml 1309 ml 200 ml Balance 760 ml 480 ml 1309 ml 200 ml Intake Oral 360 ml 480 ml 800 ml 200 ml IV Total 400 ml 509 ml # Voids 2 5 6 3 # Bowel Movements 0 0 2 Result Diagram: 11/18/178 11/18/178 Imaging Last Impressions Lower Extremity Ultrasound 11/19/17 0000 Signed Impressions: Service Date/Time: Sunday, November 19, 2017 08:30 - CONCLUSION: Complex fluid collection in the posterior medial soft tissues measuring up to 1.2 cm, correlating with the findings seen on recent MRI. Seth Verma MD Ankle MRI 11/17/17 0000 Signed Impressions: Service Date/Time: Friday, November 17, 2017 21:51 - CONCLUSION: 1. Normal marrow edema with no evidence of osteomyelitis. 2. Soft tissue edema along the medial ankle with 1.2 cm focal area of abnormality which could represent a small abscess or cystic structure. This did not enhance. 3. Mild tenosynovitis involving the flexor digitorum longus tendon, tibialis posterior tendon and peroneus longus tendon Jerad Santos MD Chest CT 11/16/17 0000 Signed Impressions: Service Date/Time: Thursday, November 16, 2017 12:55 - CONCLUSION: 1. Trace right and small left pleural effusions with associated airspace consolidation at the lung bases. Differential considerations include aspiration or pneumonia with reactive effusions versus pleural effusions with compressive atelectasis. 2. Partially imaged right shaped defects in the azygous portions of the spleen which may reflect splenic infarcts. 3. Eccentric aortic valve calcifications consistent with prior history of aortic valve endocarditis. Russell Jose MD Abdomen/Pelvis CT 11/16/17 0000 Signed Impressions: Service Date/Time: Thursday, November 16, 2017 12:57 - CONCLUSION: 1. Stable probable embolic splenic and renal infarcts. 2. No acute abnormality or significant interval change. Specifically, no evidence for drainable abscess in the abdomen. Russell Jose MD Ankle X-Ray 11/14/17 0000 Signed Impressions: Service Date/Time: Tuesday, November 14, 2017 14:00 - CONCLUSION: Unremarkable examination of the right ankle. Valeriy Chapa MD Head CT 11/10/17 1036 Signed Impressions: Service Date/Time: Friday, November 10, 2017 12:16 - CONCLUSION: There is abnormal low density, likely representing cytotoxic edema, in the left frontal lobe. This very likely is related to a recent ischemic event. Reji Dasilva MD Chest X-Ray 11/10/17 1036 Signed Impressions: Service Date/Time: Friday, November 10, 2017 10:54 - CONCLUSION: No acute cardiopulmonary process. Kriby Trejo MD Liver Ultrasound 11/10/17 0000 Signed Impressions: Service Date/Time: Friday, November 10, 2017 14:47 - CONCLUSION: 1. Liver and spleen are both enlarged with multiple diffuse hepatic fatty infiltration. 2. Linear echogenic area within the lateral mid body of the spleen may represent a focal area of scarring. 3. Benign renal cortical cysts of the right kidney. 4. Small 3 mm gallbladder polyp. Gallbladder is otherwise sonographically normal. Kirby Trejo MD Brain MRI 11/10/17 0000 Signed Impressions: Service Date/Time: Friday, November 10, 2017 20:51 - CONCLUSION: The eighth of diminished attenuation involving the left frontoparietal junction on the patient's prior CT examination corresponds to acute infarction in addition to multiple other areas of new acute infarction bilaterally not present on the prior MRI dated 09/10/2017 and previously seen acute infarctions on the right side on that study have been evolved. Findings were discussed with the patient's nurse Chandan on 11/10/2017 9:19 PM. Fernanda Padilla MD Objective Remarks GENERAL: Patient lying in bed. Appears comfortable.patient oriented to place, not oriented to month or year today. CARDIOVASCULAR: Regular rate and rhythm without murmurs, gallops, or rubs. RESPIRATORY: Breath sounds equal bilaterally. No accessory muscle use. GASTROINTESTINAL: Abdomen soft, non-tender, nondistended. MUSCULOSKELETAL: No cyanosis. trace edema on the right lower extremity. patient now has some erythema right lower extremity medially this has been marked with pen BACK: Nontender without obvious deformity. No CVA tenderness. A/P Problem List: (1) Bacteremia ICD Code: R78.81 - Bacteremia (2) UTI (urinary tract infection) ICD Code: N39.0 - Urinary tract infection, site not specified (3) CVA (cerebral vascular accident) ICD Code: I63.9 - Cerebral infarction, unspecified (4) Cocaine abuse ICD Code: F14.10 - Cocaine abuse, uncomplicated (5) Aortic valve endocarditis ICD Code: I35.8 - Other nonrheumatic aortic valve disorders Assessment and Plan 52 years old male with history of cocaine abuse and recent CVA presented with Aortic Valve Endocarditis Aortic valve endocarditis Effect on multiple organ systems. Please see imaging above. MRI/MRA, ultrasound of the carotid, 2D echo has been DONE Continue on broad-spectrum antibiotics as per infectious disease Consult neurology- has signed off- Infectious disease ff. Continue antibiotics as per infectious disease. CT chest with pneumonia likely secondary to infected emboli. Appreciate infectious disease assistance. Steatosis on liver US -10/29 etoh. f/u PCP Swollen Ankle Xray negative for acute process Still with swelling. We will check Doppler right lower extremity. Ultrasound negative for DVT. No sign of acute ankle infection. Continue to monitor. 11/19. There is some developing erythema without any fluctuance or broken skin over the right ankle. could just be that this is now visible secondary to improvement in edema. Continue to monitor erythematous area.Consult podiatry Social situation. Patient with history of IV drug use, noncompliance. Patient has requested to forego treatment, but given his current mental state I am uncertain that he is capable of making this particular decision. Will consult psychiatry. Discussed at multidisciplinary rounds. Patient also with poor prognosis. Will consult palliative care to discuss options going forward with the patient and family. Palliative care following, appreciate assistance. Psychiatry has deemed patient incapable of making his own decisions or leaving AMA at this time. Patient's orientation apparently waxing and waning. DVT prophylaxis Discharge Planning Continues on IV antibiotics for bacteremia Pending infectious disease clearance. Patient is self-pay. Patient lives at home with mother. Mother is unwilling to administer home IV antibiotics. Psychiatry consult for capacity, orientation waxing and waning, unable to make important medical decisions. Palliative care following. Appreciate assistance Expect it will be some time to DC, difficult discharge Deena Aguirre MD Nov 20, 2017 10:17
--- NOTE | 2017-11-20 11:11 | PD.POD ---
Subjective Pain score: 1 Remarks Patient feels redness of right foot and ankle and leg has much improved complaints no events overnight Past Med/Surg/Social History Social History Smoking Status: Light Tobacco Smoker Objective Vital Signs Vital Signs Date Time Temp Pulse Resp B/P (MAP) Pulse Ox O2 Delivery O2 Flow Rate FiO2 11/20/17 08:00 97.4 82 18 117/ 95 11/20/17 00:00 97.6 83 16 115/53 (73) 96 11/19/17 20:00 98.0 81 16 119/49 (72) 98 11/19/17 16:00 97.4 84 17 113/49 (70) 98 11/19/17 12:10 98.1 85 17 108/52 (70) 96 Coded Allergies: No Known Allergies (Verified Allergy, Unknown, 11/10/17) Medications and IVs Administered Medications Medications (Trade) Dose Ordered Sig/Vikas Route PRN Reason Start Time Stop Time Status Last Admin Dose Admin Sodium Chloride 1,000 ml @ 100 mls/hr Q10H IV 11/10/17 14:07 11/20/17 05:52 Sodium Chloride (NS Flush) 2 ml UNSCH PRN IV FLUSH FLUSH AFTER USING IV ACCESS 11/10/17 14:15 11/15/17 17:31 Sodium Chloride (NS Flush) 2 ml BID IV FLUSH 11/10/17 21:00 11/18/17 20:45 Heparin Sodium (Porcine) (Heparin Inj) 5,000 units Q8H SQ 11/10/17 14:15 11/20/17 05:51 Senna/Docusate Sodium (Arabella-Colace) 1 tab BID PO 11/10/17 21:00 11/19/17 20:57 Cefepime HCl 2000 mg/Sodium Chloride 100 ml @ 200 mls/hr Q8H IV 11/10/17 14:15 11/20/17 05:51 Mupirocin (Bactroban Nasal 2% Oint) 1 applic BID NASAL 11/10/17 21:00 11/19/17 20:58 Ampicillin Sodium 2000 mg/Sodium Chloride 100 ml @ 400 mls/hr Q4H IV 11/15/17 09:00 11/20/17 05:51 Last 72 hours Impressions Lower Extremity Ultrasound 11/19/17 0000 Signed Impressions: Service Date/Time: Sunday, November 19, 2017 08:30 - CONCLUSION: Complex fluid collection in the posterior medial soft tissues measuring up to 1.2 cm, correlating with the findings seen on recent MRI. Seth Verma MD Physical Exam Remarks Right lower extremity examined significant improvement minimal redness and no warmth and no pain at the posterior ankle moderate edema remains Assessment & Plan A/P Right lower extremity cellulitis with possible abscess posterior ankle Ultrasound and MRI correlated this appears to be a resolving abscess. I do not think surgical intervention is indicated at this point due to the significant improvement. I recommend compress elevate and continue warm compress with continued ABXs. If the patient's foot or ankle deteriorates please feel free to reconsult at this time signing off Jose Robert DPM Nov 20, 2017 11:11
[2017-11-20 11:47] VITALS: BP 107/51; PULSE 86; RESP 17; TEMP 96.9; O2SAT 95
[2017-11-20] MEDS: SODIUM CHLORIDE 0.9% FLUSH 10 ML FLUSH IV FLUSH PRN ×2 (13:46→16:35)
[2017-11-20 16:00] VITALS: BP 115/50; PULSE 83; RESP 18; TEMP 96.6; O2SAT 98
[2017-11-20] MEDS ORDERED: AMPICILLIN INJ 2,000 MG in SODIUM CHLORIDE 0.9% INJ 100 ML IV SCH (17:00)
[2017-11-20 19:00] VITALS: BP 108/49; PULSE 85; RESP 18; TEMP 97.9; O2SAT 98
[2017-11-20 23:39] VITALS: BP 111/42; PULSE 85; RESP 18; TEMP 98.2; O2SAT 96
[2017-11-21] MEDS: SODIUM CHLOR 0.9% 1000 ML INJ 1,000 ML IV SCH ×3 (00:07→20:02)
[2017-11-21] MEDS: AMPICILLIN INJ 2,000 MG in SODIUM CHLORIDE 0.9% INJ 100 ML IV SCH ×6 (00:35→19:59)
[2017-11-21] MEDS: CEFEPIME INJ 2,000 MG in SODIUM CHLORIDE 0.9% INJ 100 ML IV SCH ×3 (04:18→19:59)
[2017-11-21] MEDS: HEPARIN SODIUM - SQ 10,000 UNITS/ML VIAL SQ SCH ×3 (05:50→22:39)
[2017-11-21] MEDS: DOCUSATE SODIUM 50 MG/SENNA 8.6 MG TAB PO SCH ×2 (08:07→20:05)
[2017-11-21] MEDS: MUPIROCIN 2% OINT 1 APPLIC/GM SYR NASAL SCH ×2 (08:07→20:03)
[2017-11-21] MEDS: SODIUM CHLORIDE 0.9% FLUSH 10 ML FLUSH IV FLUSH SCH ×2 (08:08→20:03)
[2017-11-21 08:11] VITALS: BP 121/47; PULSE 84; RESP 18; TEMP 97.8; O2SAT 97
[2017-11-21] MEDS: SODIUM CHLORIDE 0.9% FLUSH 10 ML FLUSH IV FLUSH PRN ×3 (11:13→15:37)
[2017-11-21 12:05] VITALS: BP 108/47; PULSE 81; RESP 17; TEMP 96.4; O2SAT 98
--- NOTE | 2017-11-21 14:38 | HHI.PR ---
Subjective Remarks Follow-up for endocarditis Patient remains afebrile. He has no complaints. Objective Vitals Vital Signs Date Time Temp Pulse Resp B/P (MAP) Pulse Ox O2 Delivery O2 Flow Rate FiO2 11/21/17 12:05 96.4 81 17 108/47 (67) 98 11/21/17 08:11 97.8 84 18 121/47 (71) 97 11/20/17 23:39 98.2 85 18 111/42 (65) 96 11/20/17 21:59 Room Air 11/20/17 19:00 97.9 85 18 108/49 (68) 98 11/20/17 16:00 96.6 83 18 115/50 (71) 98 I/O 11/20/17 11/20/17 11/20/17 11/21/17 11/21/17 11/21/17 07:00 15:00 23:00 07:00 15:00 23:00 Intake Total 200 ml 960 ml 680 ml 340 ml Balance 200 ml 960 ml 680 ml 340 ml Intake Oral 200 ml 960 ml 480 ml 240 ml IV Total 200 ml 100 ml # Voids 3 3 2 1 # Bowel Movements 2 0 0 Result Diagram: 11/18/17 0458 11/18/17 0458 Objective Remarks GENERAL: in NAD CARDIOVASCULAR: Regular rate and rhythm without murmurs, gallops, or rubs. RESPIRATORY: Breath sounds equal bilaterally. No accessory muscle use. GASTROINTESTINAL: Abdomen soft, non-tender, nondistended. MUSCULOSKELETAL: No cyanosis, or edema. BACK: Nontender without obvious deformity. No CVA tenderness. Medications and IVs Current Medications Vancomycin HCl 1000 mg/Sodium Chloride 250 ml @ 250 mls/hr ONCE STAT IV Last administered on 11/10/17at 13:21; Start 11/10/17 at 10:36; Stop 11/10/17 at 11:35 ; Status DC Cefepime HCl 2000 mg/Sodium Chloride 100 ml @ 200 mls/hr ONCE STAT IV Last administered on 11/10/17at 11:18; Start 11/10/17 at 10:36; Stop 11/10/17 at 11:20 ; Status DC Sodium Chloride 1,000 ml @ 999 mls/hr BOLUS ONCE IV Last administered on 11/10at 11:20; Start 11/10/17 at 11:30; Stop 11/10/17 at 12:38; Status DC Acetaminophen (Tylenol Supp) 650 mg ONCE ONCE RECTAL Last administered on 11/10at 11:41; Start 11/10/17 at 11:30; Stop 11/10/17 at 11:31; Status DC Aspirin (Aspirin Supp) 300 mg ONCE ONCE RECTAL Last administered on 11/10/17 13:21; Start 11/10/17 at 13:00; Stop 11/10/17 at 13:02; Status DC Sodium Chloride 1,000 ml @ 100 mls/hr Q10H IV Last administered on 11/20/17 05:52; Start 11/10/17 at 14:07 Sodium Chloride (NS Flush) 2 ml UNSCH PRN IV FLUSH FLUSH AFTER USING IV ACCESS Last administered on 11/21/17 13:54; Start 11/10/17 at 14:15 Sodium Chloride (NS Flush) 2 ml BID IV FLUSH Last administered on 11/21/17 08: 08; Start 11/10/17 at 21:00 Heparin Sodium (Porcine) (Heparin Inj) 5,000 units Q8H SQ Last administered on 11/21/17 13:52; Start 11/10/17 at 14:15 Naloxone HCl (Narcan Inj) 0.4 mg UNSCH PRN IV PUSH SEE LABEL COMMENTS; Start at 14:15 Senna/Docusate Sodium (Arabella-Colace) 1 tab BID PO Last administered on at 20:57; Start 11/10/17 at 21:00 Magnesium Hydroxide (Milk Of Magnesia Liq) 30 ml Q12H PRN PO Mild constipation ; Start 11/10/17 at 14:15 Sennosides (Senokot) 17.2 mg Q12H PRN PO Moderate constipation; Start 11/10/17 at 14:15 Bisacodyl (Dulcolax Supp) 10 mg DAILY PRN RECTAL SEVERE CONSITIPATION; Start at 14:15 Lactulose (Lactulose Liq) 30 ml DAILY PRN PO SEVERE CONSITIPATION; Start at 14:15 Sodium Chloride 1,000 ml @ 999 mls/hr BOLUS ONCE IV Last administered on 11/10at 16:40; Start 11/10/17 at 14:15; Stop 11/10/17 at 15:29; Status DC Sodium Chloride 1,000 ml @ 999 mls/hr BOLUS ONCE IV Last administered on 11/10at 17:40; Start 11/10/17 at 14:15; Stop 11/10/17 at 15:29; Status DC Sodium Chloride 1,000 ml @ 42 mls/hr [id number] IV ; Start 11/10/17 at 14:07; Stop 11/10/17 at 17:15; Status DC Sodium Chloride 1,000 ml @ 84 mls/hr [id number] IV ; Start 11/10/17 at 14:07; Stop 11/10/17 at 17:15; Status DC Sodium Chloride 1,000 ml @ 100 mls/hr Q10H IV ; Start 11/10/17 at 14:07; Stop 11/10/17 at 17:15; Status DC Sodium Chloride 1,000 ml @ 125 mls/hr Q8H IV ; Start 11/10/17 at 14:07; Stop at 17:16; Status DC Pharmacy Profile Note 0 ml @ 0 mls/hr UNSCH OTHER ; Start 11/10/17 at 14:15; Status Cancel Vancomycin HCl 1251 mg/Sodium Chloride 512.51 ml @ 250 mls/ hr Q12H IV ; Start 11/10/17 at 14:15; Status UNV Cefepime HCl 2000 mg/Sodium Chloride 100 ml @ 200 mls/hr Q8H IV Last administered on 11/20/17at 13:46; Start 11/10/17 at 14:15; Stop 11/20/17 at 14:13 ; Status DC Vancomycin HCl 750 mg/Sodium Chloride 257.5 ml @ 250 mls/hr ONCE ONCE IV Last administered on 11/10/17at 18:48; Start 11/10/17 at 16:00; Stop 11/10/17 at 17:01; Status DC Mupirocin (Bactroban Nasal 2% Oint) 1 applic BID NASAL Last administered on at 20:58; Start 11/10/17 at 21:00 Sodium Chloride 2,000 ml @ 999 mls/hr Q2H1M IV Last administered on 11/10/17at 17:45; Start 11/10/17 at 17:45; Stop 11/10/17 at 19:45; Status DC Vancomycin HCl 1250 mg/Sodium Chloride 262.5 ml @ 250 mls/hr Q18H IV Last administered on 11/13/17at 00:20; Start 11/11/17 at 12:00; Stop 11/13/17 at 10:56 ; Status DC Miscellaneous Information SPECIFIC LAB TO BE DRAWN:VANCOMYCIN TROUGH DATE TO... ONCE ONCE .XX Last administered on 11/12/17at 23:50; Start 11/12/17 at 23:45; Stop 11/12/17 at 23:46; Status DC Pharmacy Profile Note 0 ml @ 0 mls/hr UNSCH OTHER ; Start 11/11/17 at 15:30; Stop 11/15/17 at 08:10; Status DC Vancomycin HCl 1250 mg/Sodium Chloride 262.5 ml @ 250 mls/hr Q12H IV ; Start at 14:00; Stop 11/13/17 at 19:19; Status DC Vancomycin HCl 1250 mg/Sodium Chloride 262.5 ml @ 250 mls/hr Q12H IV Last administered on 11/14/17at 19:49; Start 11/13/17 at 20:00; Stop 11/15/17 at 08:10 ; Status DC Ampicillin Sodium 2000 mg/Sodium Chloride 100 ml @ 400 mls/hr Q4H IV Last administered on 11/20/17at 12:29; Start 11/15/17 at 09:00; Stop 11/20/17 at 12:35 ; Status DC Diatrizoate Meglum/ Diatrizoate Sod ( Gastroview Liq) 18 ml ONCE ONCE PO Last administered on 11/16/17at 10:04; Start 11/16/17 at 09:15; Stop 11/16/17 at 09:16; Status DC Iohexol (Omnipaque 350 Inj) 96 ml STK-MED ONCE IVCONTRAST Last administered on 11/16/17at 13:12; Start 11/16/17 at 13:12; Stop 11/16/17 at 13:13; Status DC Gadodiamide (Omniscan Pf Inj) 16 ml STK-MED ONCE IVCONTRAST Last administered on 11/17/17at 23:07; Start 11/17/17 at 22:34; Stop 11/17/17 at 22:36; Status DC Ampicillin Sodium 2000 mg/Sodium Chloride 100 ml @ 400 mls/hr Q4H IV ; Start at 17:00; Stop 11/20/17 at 17:00; Status DC Cefepime HCl 2000 mg/Sodium Chloride 100 ml @ 200 mls/hr Q8H IV Last administered on 11/21/17at 11:14; Start 11/20/17 at 20:00 Ampicillin Sodium 2000 mg/Sodium Chloride 100 ml @ 400 mls/hr Q4H IV Last administered on 11/21/17at 13:52; Start 11/20/17 at 16:00 A/P Problem List: (1) Bacteremia ICD Code: R78.81 - Bacteremia (2) UTI (urinary tract infection) ICD Code: N39.0 - Urinary tract infection, site not specified (3) CVA (cerebral vascular accident) ICD Code: I63.9 - Cerebral infarction, unspecified (4) Cocaine abuse ICD Code: F14.10 - Cocaine abuse, uncomplicated (5) Aortic valve endocarditis ICD Code: I35.8 - Other nonrheumatic aortic valve disorders Assessment and Plan 52 years old male with history of cocaine abuse and recent CVA presented with Aortic Valve Endocarditis Aortic valve endocarditis Effect on multiple organ systems. Please see imaging above. MRI/MRA, ultrasound of the carotid, 2D echo has been DONE Continue on broad-spectrum antibiotics as per infectious disease Consulted neurology- has signed off- Infectious disease ff. Continue antibiotics as per infectious disease. CT chest with pneumonia likely secondary to infected emboli. Appreciate infectious disease assistance. Steatosis on liver US -10/29 etoh. f/u PCP Swollen Ankle Xray negative for acute process Still with swelling. We will check Doppler right lower extremity. Ultrasound negative for DVT. No sign of acute ankle infection. Continue to monitor. 11/19. There is some developing erythema without any fluctuance or broken skin over the right ankle. could just be that this is now visible secondary to improvement in edema. Continue to monitor erythematous area. Per livestock yard attendant Dr. Robert recommendation is to compress, elevate and warm the extremity to see if there is improvement over the next 24-48 hours. If there is no improvement he may recommend ultrasound of the area. Social situation. Patient with history of IV drug use, noncompliance. Patient has requested to forego treatment, but given his current mental state I am uncertain that he is capable of making this particular decision. Per psychiatrist patient does not have the capacity to make medical decisions. DVT prophylaxis Discharge Planning Continues on IV antibiotics for bacteremia Pending infectious disease clearance. Patient is self-pay. Patient lives at home with mother. Mother is unwilling to administer home IV antibiotics. Per psychiatrist patient does not have the capacity to make medical decisions. Janice Yap MD Nov 21, 2017 14:38
[2017-11-21 16:07] VITALS: BP 114/50; PULSE 85; RESP 18; TEMP 97.8; O2SAT 97
[2017-11-21 19:01] VITALS: BP 114/52; PULSE 81; RESP 18; TEMP 97.5; O2SAT 98
[2017-11-21 23:21] VITALS: BP 112/51; PULSE 80; RESP 17; TEMP 98.5; O2SAT 93
[2017-11-22] MEDS: AMPICILLIN INJ 2,000 MG in SODIUM CHLORIDE 0.9% INJ 100 ML IV SCH ×7 (00:10→23:57)
[2017-11-22] MEDS: CEFEPIME INJ 2,000 MG in SODIUM CHLORIDE 0.9% INJ 100 ML IV SCH ×3 (04:00→20:40)
[2017-11-22] MEDS: SODIUM CHLOR 0.9% 1000 ML INJ 1,000 ML IV SCH ×2 (04:53→16:07)
[2017-11-22] MEDS: HEPARIN SODIUM - SQ 10,000 UNITS/ML VIAL SQ SCH ×3 (06:15→22:15)
[2017-11-22 08:00] VITALS: BP 99/46; PULSE 81; RESP 16; TEMP 96.7; O2SAT 99
[2017-11-22] MEDS: MUPIROCIN 2% OINT 1 APPLIC/GM SYR NASAL SCH ×2 (08:10→21:00)
[2017-11-22] MEDS: SODIUM CHLORIDE 0.9% FLUSH 10 ML FLUSH IV FLUSH SCH ×2 (08:10→21:00)
[2017-11-22] MEDS: DOCUSATE SODIUM 50 MG/SENNA 8.6 MG TAB PO SCH ×2 (08:10→21:00)
[2017-11-22 12:00] VITALS: BP 107/47; PULSE 81; RESP 16; TEMP 97.2; O2SAT 97
--- NOTE | 2017-11-22 14:32 | HHI.IDPN ---
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 Patient has expressive as well as possible receptive aphasia as a result of that. His mother reports he lives with her. He does go out of the home to meet friends. To the best of her knowledge he does not do drugs but she would not be surprised if he did. She reported he had complained of sweating and left side weakness with fever 103 F associated with chills. He denies any pain. He reports cough with phlegm. He denies any N/V or diarrhea. He was seen by Neuro and it appears he is non compliant with medications including aspirin prescribed last admission. Last admission patient was treated for endocarditis possibly per mother. Patient was sepsis and workup revealed Gram neg bacteremia and ID was consulted due to suspicion of endocarditis. 2D ECHO pending. Notes reviewed Temps ok Pain R foot/ankle, swelling reduced. BC 11/10 PSAE and Enterococcus BC 11/11 PSAE BC 11/13 negative WBC down to normal No rash No diarrhea Antibiotics Cefepime IV Ampicillin IV Lines Line sites with no e.o infection Past Medical History History of CVA August 2017 h/o endocarditis in past. Previous PSAE and Enterococcal bacteremia last 09/12 Allergies: Coded Allergies: No Known Allergies (Verified Allergy, Unknown, 11/10/17) Objective . Vital Signs Date Time Temp Pulse Resp B/P (MAP) Pulse Ox O2 Delivery O2 Flow Rate FiO2 11/22/17 12:00 97.2 81 16 107/47 (67) 97 11/22/17 08:00 96.7 81 16 99/46 (63) 99 11/22/17 08:00 Room Air 11/21/17 23:21 98.5 80 17 112/51 (71) 93 11/21/17 19:55 Room Air 11/21/17 19:01 97.5 81 18 114/52 (72) 98 11/21/17 16:07 97.8 85 18 114/50 (71) 97 Imaging Lower Extremity Ultrasound 11/19/17 0000 Signed Impressions: Service Date/Time: Sunday, November 19, 2017 08:30 - CONCLUSION: Complex fluid collection in the posterior medial soft tissues measuring up to 1.2 cm, correlating with the findings seen on recent MRI. Seth Verma MD Ankle MRI 11/17/17 0000 Signed Impressions: Service Date/Time: Friday, November 17, 2017 21:51 - CONCLUSION: 1. Normal marrow edema with no evidence of osteomyelitis. 2. Soft tissue edema along the medial ankle with 1.2 cm focal area of abnormality which could represent a small abscess or cystic structure. This did not enhance. 3. Mild tenosynovitis involving the flexor digitorum longus tendon, tibialis posterior tendon and peroneus longus tendon Jerad Santos MD Head CT 11/10/17 1036 Signed Impressions: Service Date/Time: Friday, November 10, 2017 12:16 - CONCLUSION: There is abnormal low density, likely representing cytotoxic edema, in the left frontal lobe. This very likely is related to a recent ischemic event. Reji Dasilva MD Chest X-Ray 11/10/17 1036 Signed Impressions: Service Date/Time: Friday, November 10, 2017 10:54 - CONCLUSION: No acute cardiopulmonary process. Kirby Trejo MD Liver Ultrasound 11/10/17 0000 Signed Impressions: Service Date/Time: Friday, November 10, 2017 14:47 - CONCLUSION: 1. Liver and spleen are both enlarged with multiple diffuse hepatic fatty infiltration. 2. Linear echogenic area within the lateral mid body of the spleen may represent a focal area of scarring. 3. Benign renal cortical cysts of the right kidney. 4. Small 3 mm gallbladder polyp. Gallbladder is otherwise sonographically normal. Kirby Trejo MD Brain MRI 11/10/17 0000 Signed Impressions: Service Date/Time: Friday, November 10, 2017 20:51 - CONCLUSION: The eighth of diminished attenuation involving the left frontoparietal junction on the patient's prior CT examination corresponds to acute infarction in addition to multiple other areas of new acute infarction bilaterally not present on the prior MRI dated 09/10/2017 and previously seen acute infarctions on the right side on that study have been evolved. Findings were discussed with the patient's nurse Chandan on 11/10/2017 9:19 PM. Fernanda Padilla MD Physical Exam GENERAL: Awake and alert, NAD SKIN: No rashes, ecchymoses or lesions. Cool and dry. HEAD: Atraumatic. Normocephalic. No temporal or scalp tenderness. EYES: Pale conjunctiva, no petechia, no hemorrhage ENT: Nose without bleeding, purulent drainage or septal hematoma. MOist mucosa NECK: Trachea midline. Supple, nontender, no meningeal signs. CARDIOVASCULAR: HS audible. RESPIRATORY: Clear to auscultation. Breath sounds equal bilaterally. No wheezes , rales, or rhonchi. GASTROINTESTINAL: Abdomen soft, non-tender, nondistended. MUSCULOSKELETAL: Right foot with swelling, slight warmth, no opening noted. On medial aspect of ankle with swelling and erythema better; able to move ankle joint NEUROLOGICAL: Awake and alert. Cranial nerves II through XII intact. Expressive and receptive aphasia Psych cooperative IV line sites with no e.o infection. Assessment & Plan Remarks Sepsis Aortic valve Endocarditis Pseudomonas bacteremia [place] sensitive Enterococcus faecalis bacteremia Right foot cellulitis Possible Rt flexor dig longus tenosynovitis likely septic emboli related process or hematogenous spread of existing infection. Cerebral stroke (multiple embolic episodes likely microabscesses) Septic emboli in spleen and Renal infarct again related to septic emboli. h/o cocaine abuse h/o stroke in Aug 2017. New Left frontal infarct likely septic emboli related vs stroke from other risk factors. Recs Continue Cefepime IV (for PSAE endocarditis) (Stop date: 12/23/2017) Continue Ampicillin IV (for E.faecalis endocarditis) (Stop date: 12/23/2017) Hospitalist to order weekly CBC with diff, CMP, CRP and follow labs. If any abnormal labs please call me or covering ID . Monitor temps Monitor progress Per toni RN and CM patient refusing antibiotics at times. Mom will not take patient back. Psych determined patient as not medically competent to make decisions per toni RN. Will sign off please call back if any change in clinical condition or questions. Jacinda Brock MD Nov 22, 2017 14:32
--- NOTE | 2017-11-22 14:45 | HHI.PR ---
Subjective Remarks Follow-up for endocarditis and right ankle infection Patient stated that ankle pain has improved drastically. He has no complaints. His nurses at the bedside during the interview. Remains afebrile. Objective Vitals Vital Signs Date Time Temp Pulse Resp B/P (MAP) Pulse Ox O2 Delivery O2 Flow Rate FiO2 11/22/17 12:00 97.2 81 16 107/47 (67) 97 11/22/17 08:00 96.7 81 16 99/46 (63) 99 11/22/17 08:00 Room Air 11/21/17 23:21 98.5 80 17 112/51 (71) 93 11/21/17 19:55 Room Air 11/21/17 19:01 97.5 81 18 114/52 (72) 98 11/21/17 16:07 97.8 85 18 114/50 (71) 97 I/O 11/21/17 11/21/17 11/21/17 11/22/17 11/22/17 11/22/17 07:00 15:00 23:00 07:00 15:00 23:00 Intake Total 340 ml 900 ml 480 ml 360 ml Balance 340 ml 900 ml 480 ml 360 ml Intake Oral 240 ml 900 ml 480 ml 360 ml IV Total 100 ml # Voids 1 3 2 1 # Bowel Movements 0 1 0 0 Result Diagram: 11/18/1745711/18/17457 Objective Remarks GENERAL: in NAD CARDIOVASCULAR: Regular rate and rhythm without murmurs, gallops, or rubs. RESPIRATORY: Breath sounds equal bilaterally. No accessory muscle use. GASTROINTESTINAL: Abdomen soft, non-tender, nondistended. MUSCULOSKELETAL: No cyanosis, or edema. BACK: Nontender without obvious deformity. No CVA tenderness. Right ankle with improvement in swelling and erythema. Full range of motion with minimal pain. A/P Problem List: (1) Bacteremia ICD Code: R78.81 - Bacteremia (2) UTI (urinary tract infection) ICD Code: N39.0 - Urinary tract infection, site not specified (3) CVA (cerebral vascular accident) ICD Code: I63.9 - Cerebral infarction, unspecified (4) Cocaine abuse ICD Code: F14.10 - Cocaine abuse, uncomplicated (5) Aortic valve endocarditis ICD Code: I35.8 - Other nonrheumatic aortic valve disorders Assessment and Plan 52 years old male with history of cocaine abuse and recent CVA presented with Aortic Valve Endocarditis Aortic valve endocarditis Effect on multiple organ systems. Please see imaging above. MRI/MRA, ultrasound of the carotid, 2D echo has been DONE Continue on broad-spectrum antibiotics as per infectious disease Consulted neurology- has signed off- Infectious disease ff. Continue antibiotics as per infectious disease. CT chest with pneumonia likely secondary to infected emboli. Appreciate infectious disease assistance. Steatosis on liver US -/ etoh. f/u PCP Swollen Ankle Xray negative for acute process Ultrasound negative for DVT. No sign of acute ankle infection. Continue to monitor. Ice Cream Truck Driver was consulted and following. Per electric sign wirer recommend compress elevate and continue warm compress with continued ABXs since ankle is improving. Ice Cream Truck Driver stated that if there is any worsening of symptoms can reconsult. Social situation. Patient with history of IV drug use, noncompliance. Patient has requested to forego treatment, but given his current mental state I am uncertain that he is capable of making this particular decision. Per psychiatrist patient does not have the capacity to make medical decisions. DVT prophylaxis -Encourage ambulation. Discharge Planning Continues on IV antibiotics for bacteremia Pending infectious disease clearance. Patient is self-pay. Patient lives at home with mother. Mother is unwilling to administer home IV antibiotics. Per psychiatrist patient does not have the capacity to make medical decisions. Janice Yap MD Nov 22, 2017 14:45
[2017-11-22 16:00] VITALS: BP 107/46; PULSE 80; RESP 16; TEMP 97.4; O2SAT 98
[2017-11-22 20:15] VITALS: BP 120/52; PULSE 84; RESP 17; TEMP 97.9; O2SAT 100
[2017-11-23] VITALS: BP 105/52; PULSE 82; RESP 18; TEMP 96.7; O2SAT 98
[2017-11-23 00:20] VITALS: BP 114/45; PULSE 87; RESP 17; TEMP 98.2; O2SAT 96
[2017-11-23] MEDS: SODIUM CHLOR 0.9% 1000 ML INJ 1,000 ML IV SCH ×3 (02:07→21:08)
[2017-11-23] MEDS: AMPICILLIN INJ 2,000 MG in SODIUM CHLORIDE 0.9% INJ 100 ML IV SCH ×5 (04:24→21:08)
[2017-11-23] MEDS: CEFEPIME INJ 2,000 MG in SODIUM CHLORIDE 0.9% INJ 100 ML IV SCH ×3 (04:24→21:08)
[2017-11-23] MEDS: HEPARIN SODIUM - SQ 10,000 UNITS/ML VIAL SQ SCH ×3 (04:26→22:15)
[2017-11-23 07:48] VITALS: BP 128/50; PULSE 84; RESP 18; TEMP 96.5; O2SAT 94
[2017-11-23] MEDS: SODIUM CHLORIDE 0.9% FLUSH 10 ML FLUSH IV FLUSH SCH ×2 (09:00→21:08)
[2017-11-23] MEDS: MUPIROCIN 2% OINT 1 APPLIC/GM SYR NASAL SCH ×2 (09:00→21:00)
[2017-11-23] MEDS: DOCUSATE SODIUM 50 MG/SENNA 8.6 MG TAB PO SCH ×2 (09:00→21:00)
[2017-11-23 11:35] VITALS: BP 108/47; PULSE 82; RESP 18; TEMP 98.1; O2SAT 95
--- NOTE | 2017-11-23 11:56 | HHI.PR ---
Subjective Remarks Follow-up for endocarditis and ankle pain Patient stated ankle pain is improved drastically. He has no other complaints. He remains afebrile. Discussed case with patient nurse has no complaints. Objective Vitals Vital Signs Date Time Temp Pulse Resp B/P (MAP) Pulse Ox O2 Delivery O2 Flow Rate FiO2 11/23/17 11:35 98.1 82 18 108/47 (67) 95 11/23/17 10:44 Room Air 11/23/17 07:48 96.5 84 18 128/50 (76) 94 11/23/17 00:20 98.2 87 17 114/45 (68) 96 11/22/17 20:15 97.9 84 17 120/52 (74) 100 11/22/17 19:13 Room Air 11/22/17 16:00 97.4 80 16 107/46 (66) 98 11/22/17 12:00 97.2 81 16 107/47 (67) 97 I/O 11/22/17 11/22/17 11/22/17 11/23/17 11/23/17 11/23/17 07:00 15:00 23:00 07:00 15:00 23:00 Intake Total 360 ml 560 ml 440 ml Balance 360 ml 560 ml 440 ml Intake Oral 360 ml 360 ml 240 ml IV Total 200 ml 200 ml # Voids 1 4 2 # Bowel Movements 0 1 0 Objective Remarks GENERAL: in NAD CARDIOVASCULAR: Regular rate and rhythm without murmurs, gallops, or rubs. RESPIRATORY: Breath sounds equal bilaterally. No accessory muscle use. GASTROINTESTINAL: Abdomen soft, non-tender, nondistended. MUSCULOSKELETAL: No cyanosis, or edema. BACK: Nontender without obvious deformity. No CVA tenderness. Right ankle with improvement in swelling and erythema. Full range of motion with minimal pain. Medications and IVs Current Medications Vancomycin HCl 1000 mg/Sodium Chloride 250 ml @ 250 mls/hr ONCE STAT IV Last administered on 11/10/17at 13:21; Start 11/10/17 at 10:36; Stop 11/10/17 at 11:35 ; Status DC Cefepime HCl 2000 mg/Sodium Chloride 100 ml @ 200 mls/hr ONCE STAT IV Last administered on 11/10/17at 11:18; Start 11/10/17 at 10:36; Stop 11/10/17 at 11:20 ; Status DC Sodium Chloride 1,000 ml @ 999 mls/hr BOLUS ONCE IV Last administered on 11/10at 11:20; Start 11/10/17 at 11:30; Stop 11/10/17 at 12:38; Status DC Acetaminophen (Tylenol Supp) 650 mg ONCE ONCE RECTAL Last administered on 11/10at 11:41; Start 11/10/17 at 11:30; Stop 11/10/17 at 11:31; Status DC Aspirin (Aspirin Supp) 300 mg ONCE ONCE RECTAL Last administered on 11/10/17at 13:21; Start 11/10/17 at 13:00; Stop 11/10/17 at 13:02; Status DC Sodium Chloride 1,000 ml @ 100 mls/hr Q10H IV Last administered on 11/20/17at 05:52; Start 11/10/17 at 14:07 Sodium Chloride (NS Flush) 2 ml UNSCH PRN IV FLUSH FLUSH AFTER USING IV ACCESS Last administered on 11/21/17at 15:37; Start 11/10/17 at 14:15 Sodium Chloride (NS Flush) 2 ml BID IV FLUSH Last administered on 11/23/17at 09: 00; Start 11/10/17 at 21:00 Heparin Sodium (Porcine) (Heparin Inj) 5,000 units Q8H SQ Last administered on 11/22/17at 13:53; Start 11/10/17 at 14:15 Naloxone HCl (Narcan Inj) 0.4 mg UNSCH PRN IV PUSH SEE LABEL COMMENTS; Start at 14:15 Senna/Docusate Sodium (Arabella-Colace) 1 tab BID PO Last administered on at 20:57; Start 11/10/17 at 21:00 Magnesium Hydroxide (Milk Of Magnesia Liq) 30 ml Q12H PRN PO Mild constipation ; Start 11/10/17 at 14:15 Sennosides (Senokot) 17.2 mg Q12H PRN PO Moderate constipation; Start 11/10/17 at 14:15 Bisacodyl (Dulcolax Supp) 10 mg DAILY PRN RECTAL SEVERE CONSITIPATION; Start at 14:15 Lactulose (Lactulose Liq) 30 ml DAILY PRN PO SEVERE CONSITIPATION; Start at 14:15 Sodium Chloride 1,000 ml @ 999 mls/hr BOLUS ONCE IV Last administered on 11/10at 16:40; Start 11/10/17 at 14:15; Stop 11/10/17 at 15:29; Status DC Sodium Chloride 1,000 ml @ 999 mls/hr BOLUS ONCE IV Last administered on 11/10at 17:40; Start 11/10/17 at 14:15; Stop 11/10/17 at 15:29; Status DC Sodium Chloride 1,000 ml @ 42 mls/hr [id number] IV ; Start 11/10/17 at 14:07; Stop 11/10/17 at 17:15; Status DC Sodium Chloride 1,000 ml @ 84 mls/hr [id number] IV ; Start 11/10/17 at 14:07; Stop 11/10/17 at 17:15; Status DC Sodium Chloride 1,000 ml @ 100 mls/hr Q10H IV ; Start 11/10/17 at 14:07; Stop 11/10/17 at 17:15; Status DC Sodium Chloride 1,000 ml @ 125 mls/hr Q8H IV ; Start 11/10/17 at 14:07; Stop at 17:16; Status DC Pharmacy Profile Note 0 ml @ 0 mls/hr UNSCH OTHER ; Start 11/10/17 at 14:15; Status Cancel Vancomycin HCl 1251 mg/Sodium Chloride 512.51 ml @ 250 mls/ hr Q12H IV ; Start 11/10/17 at 14:15; Status UNV Cefepime HCl 2000 mg/Sodium Chloride 100 ml @ 200 mls/hr Q8H IV Last administered on 11/20/17at 13:46; Start 11/10/17 at 14:15; Stop 11/20/17 at 14:13 ; Status DC Vancomycin HCl 750 mg/Sodium Chloride 257.5 ml @ 250 mls/hr ONCE ONCE IV Last administered on 11/10/17at 18:48; Start 11/10/17 at 16:00; Stop 11/10/17 at 17:01; Status DC Mupirocin (Bactroban Nasal 2% Oint) 1 applic BID NASAL Last administered on at 20:58; Start 11/10/17 at 21:00 Sodium Chloride 2,000 ml @ 999 mls/hr Q2H1M IV Last administered on 11/10/17at 17:45; Start 11/10/17 at 17:45; Stop 11/10/17 at 19:45; Status DC Vancomycin HCl 1250 mg/Sodium Chloride 262.5 ml @ 250 mls/hr Q18H IV Last administered on 11/13/17at 00:20; Start 11/11/17 at 12:00; Stop 11/13/17 at 10:56 ; Status DC Miscellaneous Information SPECIFIC LAB TO BE DRAWN:VANCOMYCIN TROUGH DATE TO... ONCE ONCE .XX Last administered on 11/12/17at 23:50; Start 11/12/17 at 23:45; Stop 11/12/17 at 23:46; Status DC Pharmacy Profile Note 0 ml @ 0 mls/hr UNSCH OTHER ; Start 11/11/17 at 15:30; Stop 11/15/17 at 08:10; Status DC Vancomycin HCl 1250 mg/Sodium Chloride 262.5 ml @ 250 mls/hr Q12H IV ; Start at 14:00; Stop 11/13/17 at 19:19; Status DC Vancomycin HCl 1250 mg/Sodium Chloride 262.5 ml @ 250 mls/hr Q12H IV Last administered on 11/14/17at 19:49; Start 11/13/17 at 20:00; Stop 11/15/17 at 08:10 ; Status DC Ampicillin Sodium 2000 mg/Sodium Chloride 100 ml @ 400 mls/hr Q4H IV Last administered on 11/20/17at 12:29; Start 11/15/17 at 09:00; Stop 11/20/17 at 12:35 ; Status DC Diatrizoate Meglum/ Diatrizoate Sod ( Gastroview Liq) 18 ml ONCE ONCE PO Last administered on 11/16/17at 10:04; Start 11/16/17 at 09:15; Stop 11/16/17 at 09:16; Status DC Iohexol (Omnipaque 350 Inj) 96 ml STK-MED ONCE IVCONTRAST Last administered on 11/16/17at 13:12; Start 11/16/17 at 13:12; Stop 11/16/17 at 13:13; Status DC Gadodiamide (Omniscan Pf Inj) 16 ml STK-MED ONCE IVCONTRAST Last administered on 11/17/17at 23:07; Start 11/17/17 at 22:34; Stop 11/17/17 at 22:36; Status DC Ampicillin Sodium 2000 mg/Sodium Chloride 100 ml @ 400 mls/hr Q4H IV ; Start at 17:00; Stop 11/20/17 at 17:00; Status DC Cefepime HCl 2000 mg/Sodium Chloride 100 ml @ 200 mls/hr Q8H IV Last administered on 11/23/17at 04:24; Start 11/20/17 at 20:00 Ampicillin Sodium 2000 mg/Sodium Chloride 100 ml @ 400 mls/hr Q4H IV Last administered on 11/23/17at 11:38; Start 11/20/17 at 16:00 A/P Problem List: (1) Bacteremia ICD Code: R78.81 - Bacteremia (2) UTI (urinary tract infection) ICD Code: N39.0 - Urinary tract infection, site not specified (3) CVA (cerebral vascular accident) ICD Code: I63.9 - Cerebral infarction, unspecified (4) Cocaine abuse ICD Code: F14.10 - Cocaine abuse, uncomplicated (5) Aortic valve endocarditis ICD Code: I35.8 - Other nonrheumatic aortic valve disorders Assessment and Plan 52 years old male with history of cocaine abuse and recent CVA presented with Aortic Valve Endocarditis Aortic valve endocarditis Effect on multiple organ systems. Please see imaging above. MRI/MRA, ultrasound of the carotid, 2D echo has been DONE Continue on broad-spectrum antibiotics as per infectious disease Consulted neurology- has signed off- Infectious disease ff. Continue antibiotics as per infectious disease. CT chest with pneumonia likely secondary to infected emboli. Appreciate infectious disease assistance. Steatosis on liver US -10/29 etoh. f/u PCP Swollen Ankle Xray negative for acute process Ultrasound negative for DVT. No sign of acute ankle infection. Continue to monitor. Application Specialist was consulted and following. Per condemnation engineer recommend compress elevate and continue warm compress with continued ABXs since ankle is improving. Application Specialist stated that if there is any worsening of symptoms can reconsult. Social situation. Patient with history of IV drug use, noncompliance. Patient has requested to forego treatment, but given his current mental state I am uncertain that he is capable of making this particular decision. Per psychiatrist patient does not have the capacity to make medical decisions. DVT prophylaxis -Encourage ambulation. Discharge Planning Continues on IV antibiotics for bacteremia Pending infectious disease clearance. Patient is self-pay. Patient lives at home with mother. Mother is unwilling to administer home IV antibiotics. Per psychiatrist patient does not have the capacity to make medical decisions. Janice Yap MD Nov 23, 2017 11:56
[2017-11-23 16:00] VITALS: BP 104/52; PULSE 82; RESP 18; TEMP 97.5; O2SAT 94
--- NOTE | 2017-11-23 16:29 | HHI.HCPN ---
Reason for visit a. To assist with evaluation and management of symptoms including: confusion b. To assist medical decision maker(s) with: better understanding of current medical conditions; weighing benefits/burdens of medical treatment options; making medical treatment decisions. Subjective/Interval History Pt seen today to follow up on comfort, goals. Discuss with infectious disease. Patient remains on cefepime, ampicillin. Discharge pending appropriate placement to continue IV antibiotics per infectious disease. Patient mother unable to care for him at home. Patient reportedly refusing IV medications today. (Psych has previously deemed him incapacitated to make medical decisions--though certainly mental status may fluctuate) right ankle edema and pain improving, podiatry signed off. OT following notes patient requires assistance with ADLs in terms of safety cueing and furniture positioning. He is able to provide self-care for upper body and feed self. No new labs or imaging. Patient seen in room no visitors present. He is alert he indicates he remembers me from the other day but he does not know my name she tells me that I left my card with him. He is not able to tell me what we spoke about. He tells me he wants to go home. He has difficulty completing sentences due to aphasia he appears frustrated. Most of my questions he answers with "I don't know "--though it is difficult to determine how much is secondary to aphasia and how much he actually does not know. He tells me he does not need to be in the hospital he is ready to go however when I asked him why he is in the hospital he is unable to tell me. He tells me he feels sicker the longer he is in the hospital. Explore that he has endocarditis and 6 stomach complications secondary to including CVAs to his brain, infectious process to the foot etc. He refuses to engage further he appears frustrated. . Family/friend interactions Following exam call to patient mother and healthcare surrogate provided update on current clinical condition patient mental status. Again review multiple conditions and multiple body systems affected by current endocarditis. Review that he will require prolonged ongoing treatment and during that treatment course still remains high risk for additional complications and event secondary to endocarditis such as the repeat CVAs he is experienced etc. She has questions regarding his diet and how he is been able to pick his menu as he is been confused and severely aphasic for her she indicates nursing said dietary was going to come and assist she wants to make sure that he is getting his meals. Per documentation he's been eating about 50-75% of recent meals though I am unable to determine what those meals consisted of. She wishes to continue treatment for now she will (see him again recent visits he has continued to be confused and difficult to communicate with. . Advance Directives Living Will: Never completed Health Care Surrogate: Copy in medical record Durable Power of Forestry Hunter: Never completed Objective Vital Signs Date Time Temp Pulse Resp B/P (MAP) Pulse Ox O2 Delivery O2 Flow Rate FiO2 11/23/17 11:35 98.1 82 18 108/47 (67) 95 11/23/17 10:44 Room Air 11/23/17 07:48 96.5 84 18 128/50 (76) 94 11/23/17 00:20 98.2 87 17 114/45 (68) 96 11/22/17 20:15 97.9 84 17 120/52 (74) 100 11/22/17 19:13 Room Air Intake & Output 11/23/17 11/23/17 07:00 19:00 Intake Total 1000 ml 300 ml Balance 1000 ml 300 ml Intake Oral 600 ml IV Total 400 ml 300 ml # Voids 3 # Bowel Movements 0 Physical Exam CONSTITUTIONAL/GENERAL: This is an adequately nourished patient,irritable at times, disheveled. TUBES/LINES/DRAINS:PIV UE. SKIN: No jaundice, rashes, or lesions. No wounds seen anteriorly. Skin warm/dry HEAD: Atraumatic. Normocephalic. CARDIOVASCULAR: Regular rate and rhythm without murmur. Peripheral pulses symmetric.+ slight edema right foot/ankle RESPIRATORY/CHEST: Symmetric, unlabored respirations. Clear to auscultation. Breath sounds equal bilaterally. GASTROINTESTINAL: Abdomen soft, non-tender, nondistended. No palpable masses. No guarding. Bowel sounds present. MUSCULOSKELETAL: Extremities without clubbing, cyanosis. +edema Rt ankle/foot improved. No mottling or clubbing. NEUROLOGICAL: Awake and alert.Oriented x1-2. +expressive aphasia, unable to complete sentences. Irritable. Follows commands. Moves all 4 extremities. PSYCHIATRIC: Irritable. no apparent hallucinations or other psychotic thought process. Assessment and Plan Disease Oriented Problem List: (1) Severe sepsis (2) CVA (cerebral vascular accident) (3) Cocaine abuse (4) Aortic valve endocarditis (5) Bacteremia Symptom Scale: (1) Confusion (2) Pain Pertinent Non-Medical Issues Psychosocial: Spiritual: Legal:Pt admitted w confusion, aphasia. S/p recent CVA, + new areas infarct. Mental status fluctuates. Not clear he has full insight and ability to make decisions, though he may be able to participate in shared decision making. Psych eval pending. Mother is designated HCS. Ethical issues impacting care:no ethical issues identified Important Contacts Mother Bhargavi Wallis [phone] daughter Agnes [phone] . Prognosis This pt was admitted for AMS, fever. He has findings of new (septic emboli) CVA , endocarditis, ongoing IV tx per ID. Pt remains very high risk for ongoing complications secondary to infectious process, even with ongoing aggressive treatment. . Code Status: No Code Plan * Legal decision maker:Pt admitted w confusion, aphasia. S/p recent CVA, + new areas infarct. Mental status fluctuates. Not clear he has full insight and ability to make decisions, though he may be able to participate in shared decision making at times. During my exam today he appears to have very limited insight and NOT able to make his own decisions. Psych eval completed, pt not capacitated to make his decisions at this time. Mother is designated HCS. . * Goals: Goals remain aggressive short of resuscitation. Pt mother does not feel he has good understanding of his conditions/needed treatments. She does not feel he will be able to care for himself. She is not able to be a primary caregiver for him, and is not certain that his daughter will be able to either, as she works application security specialist and has a toddler. Pt mother does wish for current tx to be maximized to try to help pt improve, feels he will likely need intermediate placement for his care needs. * CODE STATUS: DNR * SYMPTOMS: --confusion/AMS- recent CVA, + new embolic CVA this admission. mental status fluctuates. Hx drug abuse, "none recently". --pain- Pain to RLE , imaging negative, exam + edema but otherwise benign; he describes pain as Mild, cont to monitor ; s/p MRI, podiatry consult pending, concerning for abscess r/t septic emboli.s/p podiatry evaluation no invasive interventions planned at this time, improvement over past few days . * Palliative care will continue to follow during hospital course as condition evolves, to assist patient/decision-maker with understanding of medical conditions, weighing benefits/burdens of treatment options, for clarification of goals of treatment. Additionally will assist with any symptoms of palliative concern . Attestation To help prompt me to consider important information that might be impacting today's encounter and assessment, information from prior notes written by myself or my colleagues may have been "brought forward" into today's note. My signature on this note, however, is an attestation that I personally performed the exam, history, and/or decision-making noted today, and, unless otherwise indicated, the interactions with patient, family, and staff as well as the review of records all occurred today. I also attest that the listed assessment and stated plan reflect my best clinical judgment today based on the combination of historical information, prior notes, and today's exam/ interactions. When time spent is documented, it refers only to time spent today by the signer, or if indicated, combined time spent today by collaborating physician/nurse practitioner. Ana Rodarte Nov 23, 2017 16:29
[2017-11-23 20:00] VITALS: BP 102/43; PULSE 79; RESP 20; TEMP 96; O2SAT 99
[2017-11-24] VITALS: BP 105/52; PULSE 82; RESP 18; TEMP 96.7; O2SAT 98
[2017-11-24] MEDS: AMPICILLIN INJ 2,000 MG in SODIUM CHLORIDE 0.9% INJ 100 ML IV SCH ×6 (00:44→20:33)
[2017-11-24 04:00] VITALS: BP 100/48; PULSE 84; RESP 16; TEMP 96.3; O2SAT 96
[2017-11-24] MEDS: HEPARIN SODIUM - SQ 10,000 UNITS/ML VIAL SQ SCH ×3 (05:20→23:00)
[2017-11-24] MEDS: CEFEPIME INJ 2,000 MG in SODIUM CHLORIDE 0.9% INJ 100 ML IV SCH ×3 (05:34→20:32)
[2017-11-24 08:00] VITALS: BP 120/56; PULSE 82; RESP 18; TEMP 96; O2SAT 95
[2017-11-24] MEDS: SODIUM CHLOR 0.9% 1000 ML INJ 1,000 ML IV SCH ×2 (08:07→18:07)
[2017-11-24] MEDS: MUPIROCIN 2% OINT 1 APPLIC/GM SYR NASAL SCH ×2 (09:00→21:00)
[2017-11-24] MEDS: DOCUSATE SODIUM 50 MG/SENNA 8.6 MG TAB PO SCH ×2 (10:20→21:00)
[2017-11-24] MEDS: SODIUM CHLORIDE 0.9% FLUSH 10 ML FLUSH IV FLUSH SCH ×2 (10:21→20:33)
[2017-11-24 12:00] VITALS: BP 110/50; PULSE 83; RESP 18; TEMP 96.8; O2SAT 99
--- NOTE | 2017-11-24 14:00 | HHI.PR ---
Subjective Remarks Follow-up for infection Patient has no complaints. Denies any ankle pain. He remains afebrile. Patient's nurse at the bedside during the interview she also has no complaints. Objective Vitals Vital Signs Date Time Temp Pulse Resp B/P (MAP) Pulse Ox O2 Delivery O2 Flow Rate FiO2 11/24/17 08:00 96.0 82 18 120/56 (77) 95 11/24/17 04:00 96.3 84 16 100/48 (65) 96 11/24/17 00:00 96.7 82 18 105/52 (69) 98 11/23/17 21:00 Room Air 11/23/17 20:00 96.0 79 20 102/43 (62) 99 11/23/17 16:00 97.5 82 18 104/52 (69) 94 I/O 11/23/17 11/23/17 11/23/17 11/24/17 11/24/17 11/24/17 07:00 15:00 23:00 07:00 15:00 23:00 Intake Total 440 ml 1020 ml 480 ml 240 ml Balance 440 ml 1020 ml 480 ml 240 ml Intake Oral 240 ml 720 ml 480 ml 240 ml IV Total 200 ml 300 ml # Voids 2 3 2 2 # Bowel Movements 0 2 0 0 Objective Remarks GENERAL: in NAD CARDIOVASCULAR: Regular rate and rhythm without murmurs, gallops, or rubs. RESPIRATORY: Breath sounds equal bilaterally. No accessory muscle use. GASTROINTESTINAL: Abdomen soft, non-tender, nondistended. MUSCULOSKELETAL: No cyanosis, or edema. BACK: Nontender without obvious deformity. No CVA tenderness. Right ankle with improvement in swelling and erythema. Full range of motion with minimal pain. Medications and IVs Current Medications Vancomycin HCl 1000 mg/Sodium Chloride 250 ml @ 250 mls/hr ONCE STAT IV Last administered on 11/10/17at 13:21; Start 11/10/17 at 10:36; Stop 11/10/17 at 11:35 ; Status DC Cefepime HCl 2000 mg/Sodium Chloride 100 ml @ 200 mls/hr ONCE STAT IV Last administered on 11/10/17at 11:18; Start 11/10/17 at 10:36; Stop 11/10/17 at 11:20 ; Status DC Sodium Chloride 1,000 ml @ 999 mls/hr BOLUS ONCE IV Last administered on 11/10 11:20; Start 11/10/17 at 11:30; Stop 11/10/17 at 12:38; Status DC Acetaminophen (Tylenol Supp) 650 mg ONCE ONCE RECTAL Last administered on 11/10 11:41; Start 11/10/17 at 11:30; Stop 11/10/17 at 11:31; Status DC Aspirin (Aspirin Supp) 300 mg ONCE ONCE RECTAL Last administered on 11/10/17at 13:21; Start 11/10/17 at 13:00; Stop 11/10/17 at 13:02; Status DC Sodium Chloride 1,000 ml @ 100 mls/hr Q10H IV Last administered on 11/20/17 05:52; Start 11/10/17 at 14:07 Sodium Chloride (NS Flush) 2 ml UNSCH PRN IV FLUSH FLUSH AFTER USING IV ACCESS Last administered on 11/21/17 15:37; Start 11/10/17 at 14:15 Sodium Chloride (NS Flush) 2 ml BID IV FLUSH Last administered on 11/24/17at 10: 21; Start 11/10/17 at 21:00 Heparin Sodium (Porcine) (Heparin Inj) 5,000 units Q8H SQ Last administered on 11/24/17 13:25; Start 11/10/17 at 14:15 Naloxone HCl (Narcan Inj) 0.4 mg UNSCH PRN IV PUSH SEE LABEL COMMENTS; Start at 14:15 Senna/Docusate Sodium (Arabella-Colace) 1 tab BID PO Last administered on at 10:20; Start 11/10/17 at 21:00 Magnesium Hydroxide (Milk Of Magnesia Liq) 30 ml Q12H PRN PO Mild constipation ; Start 11/10/17 at 14:15 Sennosides (Senokot) 17.2 mg Q12H PRN PO Moderate constipation; Start 11/10/17 at 14:15 Bisacodyl (Dulcolax Supp) 10 mg DAILY PRN RECTAL SEVERE CONSITIPATION; Start at 14:15 Lactulose (Lactulose Liq) 30 ml DAILY PRN PO SEVERE CONSITIPATION; Start at 14:15 Sodium Chloride 1,000 ml @ 999 mls/hr BOLUS ONCE IV Last administered on 11/10at 16:40; Start 11/10/17 at 14:15; Stop 11/10/17 at 15:29; Status DC Sodium Chloride 1,000 ml @ 999 mls/hr BOLUS ONCE IV Last administered on 11/10at 17:40; Start 11/10/17 at 14:15; Stop 11/10/17 at 15:29; Status DC Sodium Chloride 1,000 ml @ 42 mls/hr [id number] IV ; Start 11/10/17 at 14:07; Stop 11/10/17 at 17:15; Status DC Sodium Chloride 1,000 ml @ 84 mls/hr [id number] IV ; Start 11/10/17 at 14:07; Stop 11/10/17 at 17:15; Status DC Sodium Chloride 1,000 ml @ 100 mls/hr Q10H IV ; Start 11/10/17 at 14:07; Stop 11/10/17 at 17:15; Status DC Sodium Chloride 1,000 ml @ 125 mls/hr Q8H IV ; Start 11/10/17 at 14:07; Stop at 17:16; Status DC Pharmacy Profile Note 0 ml @ 0 mls/hr UNSCH OTHER ; Start 11/10/17 at 14:15; Status Cancel Vancomycin HCl 1251 mg/Sodium Chloride 512.51 ml @ 250 mls/ hr Q12H IV ; Start 11/10/17 at 14:15; Status UNV Cefepime HCl 2000 mg/Sodium Chloride 100 ml @ 200 mls/hr Q8H IV Last administered on 11/20/17at 13:46; Start 11/10/17 at 14:15; Stop 11/20/17 at 14:13 ; Status DC Vancomycin HCl 750 mg/Sodium Chloride 257.5 ml @ 250 mls/hr ONCE ONCE IV Last administered on 11/10/17at 18:48; Start 11/10/17 at 16:00; Stop 11/10/17 at 17:01; Status DC Mupirocin (Bactroban Nasal 2% Oint) 1 applic BID NASAL Last administered on at 20:58; Start 11/10/17 at 21:00 Sodium Chloride 2,000 ml @ 999 mls/hr Q2H1M IV Last administered on 11/10/17at 17:45; Start 11/10/17 at 17:45; Stop 11/10/17 at 19:45; Status DC Vancomycin HCl 1250 mg/Sodium Chloride 262.5 ml @ 250 mls/hr Q18H IV Last administered on 11/13/17at 00:20; Start 11/11/17 at 12:00; Stop 11/13/17 at 10:56 ; Status DC Miscellaneous Information SPECIFIC LAB TO BE DRAWN:VANCOMYCIN TROUGH DATE TO... ONCE ONCE .XX Last administered on 11/12/17at 23:50; Start 11/12/17 at 23:45; Stop 11/12/17 at 23:46; Status DC Pharmacy Profile Note 0 ml @ 0 mls/hr UNSCH OTHER ; Start 11/11/17 at 15:30; Stop 11/15/17 at 08:10; Status DC Vancomycin HCl 1250 mg/Sodium Chloride 262.5 ml @ 250 mls/hr Q12H IV ; Start at 14:00; Stop 11/13/17 at 19:19; Status DC Vancomycin HCl 1250 mg/Sodium Chloride 262.5 ml @ 250 mls/hr Q12H IV Last administered on 11/14/17at 19:49; Start 11/13/17 at 20:00; Stop 11/15/17 at 08:10 ; Status DC Ampicillin Sodium 2000 mg/Sodium Chloride 100 ml @ 400 mls/hr Q4H IV Last administered on 11/20/17at 12:29; Start 11/15/17 at 09:00; Stop 11/20/17 at 12:35 ; Status DC Diatrizoate Meglum/ Diatrizoate Sod ( Gastroview Liq) 18 ml ONCE ONCE PO Last administered on 11/16/17at 10:04; Start 11/16/17 at 09:15; Stop 11/16/17 at 09:16; Status DC Iohexol (Omnipaque 350 Inj) 96 ml STK-MED ONCE IVCONTRAST Last administered on 11/16/17at 13:12; Start 11/16/17 at 13:12; Stop 11/16/17 at 13:13; Status DC Gadodiamide (Omniscan Pf Inj) 16 ml STK-MED ONCE IVCONTRAST Last administered on 11/17/17at 23:07; Start 11/17/17 at 22:34; Stop 11/17/17 at 22:36; Status DC Ampicillin Sodium 2000 mg/Sodium Chloride 100 ml @ 400 mls/hr Q4H IV ; Start at 17:00; Stop 11/20/17 at 17:00; Status DC Cefepime HCl 2000 mg/Sodium Chloride 100 ml @ 200 mls/hr Q8H IV Last administered on 11/24/17at 13:25; Start 11/20/17 at 20:00 Ampicillin Sodium 2000 mg/Sodium Chloride 100 ml @ 400 mls/hr Q4H IV Last administered on 11/24/17at 13:32; Start 11/20/17 at 16:00 A/P Problem List: (1) Bacteremia ICD Code: R78.81 - Bacteremia (2) UTI (urinary tract infection) ICD Code: N39.0 - Urinary tract infection, site not specified (3) CVA (cerebral vascular accident) ICD Code: I63.9 - Cerebral infarction, unspecified (4) Cocaine abuse ICD Code: F14.10 - Cocaine abuse, uncomplicated (5) Aortic valve endocarditis ICD Code: I35.8 - Other nonrheumatic aortic valve disorders Assessment and Plan 52 years old male with history of cocaine abuse and recent CVA presented with Aortic Valve Endocarditis Aortic valve endocarditis Effect on multiple organ systems. Please see imaging above. MRI/MRA, ultrasound of the carotid, 2D echo has been DONE Continue on broad-spectrum antibiotics as per infectious disease Consulted neurology- has signed off- Infectious disease ff. Continue antibiotics as per infectious disease. CT chest with pneumonia likely secondary to infected emboli. Appreciate infectious disease assistance. Steatosis on liver US -10/29 etoh. f/u PCP Swollen Ankle Xray negative for acute process Ultrasound negative for DVT. No sign of acute ankle infection. Continue to monitor. Ecosystem Ecology Professor was consulted and following. Per surgical technology instructor recommend compress elevate and continue warm compress with continued ABXs since ankle is improving. Ecosystem Ecology Professor stated that if there is any worsening of symptoms can reconsult. Social situation. Patient with history of IV drug use, noncompliance. Patient has requested to forego treatment, but given his current mental state I am uncertain that he is capable of making this particular decision. Per psychiatrist patient does not have the capacity to make medical decisions. DVT prophylaxis -Encourage ambulation. Discharge Planning Continues on IV antibiotics for bacteremia Pending infectious disease clearance. Patient is self-pay. Patient lives at home with mother. Mother is unwilling to administer home IV antibiotics. Per psychiatrist patient does not have the capacity to make medical decisions. Janice Yap MD Nov 24, 2017 14:00
[2017-11-24 16:00] VITALS: BP 122/54; PULSE 80; RESP 18; TEMP 97.7; O2SAT 97
[2017-11-24 19:57] VITALS: BP 99/36; PULSE 84; RESP 18; TEMP 96.2; O2SAT 98
[2017-11-25] MEDS: AMPICILLIN INJ 2,000 MG in SODIUM CHLORIDE 0.9% INJ 100 ML IV SCH ×6 (00:30→20:13)
[2017-11-25 01:28] VITALS: BP 98/56; PULSE 85; RESP 16; TEMP 98.2; O2SAT 98
[2017-11-25] MEDS: SODIUM CHLOR 0.9% 1000 ML INJ 1,000 ML IV SCH ×2 (04:07→14:07)
[2017-11-25] MEDS: CEFEPIME INJ 2,000 MG in SODIUM CHLORIDE 0.9% INJ 100 ML IV SCH ×3 (04:58→20:18)
[2017-11-25] MEDS: HEPARIN SODIUM - SQ 10,000 UNITS/ML VIAL SQ SCH ×3 (06:15→22:15)
[2017-11-25 06:58] VITALS: BP 120/58; PULSE 85; RESP 16; TEMP 98.6; O2SAT 98
[2017-11-25 08:00] VITALS: BP 108/49; PULSE 80; RESP 18; TEMP 96.7; O2SAT 96
[2017-11-25] MEDS: SODIUM CHLORIDE 0.9% FLUSH 10 ML FLUSH IV FLUSH SCH ×2 (09:00→20:14)
[2017-11-25] MEDS: MUPIROCIN 2% OINT 1 APPLIC/GM SYR NASAL SCH ×2 (09:00→20:18)
[2017-11-25] MEDS: DOCUSATE SODIUM 50 MG/SENNA 8.6 MG TAB PO SCH ×2 (09:59→20:12)
--- NOTE | 2017-11-25 10:26 | HHI.PR ---
Subjective Remarks in no acute distress. denies pain. afebrile. no new complaints. Objective Vitals Vital Signs Date Time Temp Pulse Resp B/P (MAP) Pulse Ox O2 Delivery O2 Flow Rate FiO2 11/25/17 08:00 96.7 80 18 108/49 (68) 96 11/25/17 06:58 98.6 85 16 120/58 (78) 98 11/25/17 01:28 98.2 85 16 98/56 (70) 98 11/24/17 19:57 96.2 84 18 99/36 (57) 98 11/24/17 16:00 97.7 80 18 122/54 (76) 97 11/24/17 12:00 96.8 83 18 110/50 (70) 99 I/O 11/24/17 11/24/17 11/24/17 11/25/17 11/25/17 11/25/17 06:59 14:59 22:59 06:59 14:59 22:59 Intake Total 240 ml 720 ml Balance 240 ml 720 ml Intake Oral 240 ml 720 ml # Voids 2 3 # Bowel Movements 0 1 Imaging Last Impressions Lower Extremity Ultrasound 11/19/17 0000 Signed Impressions: Service Date/Time: Sunday, November 19, 2017 08:30 - CONCLUSION: Complex fluid collection in the posterior medial soft tissues measuring up to 1.2 cm, correlating with the findings seen on recent MRI. Seth Verma MD Ankle MRI 11/17/17 0000 Signed Impressions: Service Date/Time: Friday, November 17, 2017 21:51 - CONCLUSION: 1. Normal marrow edema with no evidence of osteomyelitis. 2. Soft tissue edema along the medial ankle with 1.2 cm focal area of abnormality which could represent a small abscess or cystic structure. This did not enhance. 3. Mild tenosynovitis involving the flexor digitorum longus tendon, tibialis posterior tendon and peroneus longus tendon Jerad Santos MD Chest CT 11/16/17 0000 Signed Impressions: Service Date/Time: Thursday, November 16, 2017 12:55 - CONCLUSION: 1. Trace right and small left pleural effusions with associated airspace consolidation at the lung bases. Differential considerations include aspiration or pneumonia with reactive effusions versus pleural effusions with compressive atelectasis. 2. Partially imaged right shaped defects in the azygous portions of the spleen which may reflect splenic infarcts. 3. Eccentric aortic valve calcifications consistent with prior history of aortic valve endocarditis. Russell Jose MD Abdomen/Pelvis CT 11/16/17 0000 Signed Impressions: Service Date/Time: Thursday, November 16, 2017 12:57 - CONCLUSION: 1. Stable probable embolic splenic and renal infarcts. 2. No acute abnormality or significant interval change. Specifically, no evidence for drainable abscess in the abdomen. Russell Jose MD Ankle X-Ray 11/14/17 0000 Signed Impressions: Service Date/Time: Tuesday, November 14, 2017 14:00 - CONCLUSION: Unremarkable examination of the right ankle. Valeriy Chapa MD Head CT 11/10/17 1036 Signed Impressions: Service Date/Time: Friday, November 10, 2017 12:16 - CONCLUSION: There is abnormal low density, likely representing cytotoxic edema, in the left frontal lobe. This very likely is related to a recent ischemic event. Reji Dasilva MD Chest X-Ray 11/10/176 Signed Impressions: Service Date/Time: Friday, November 10, 2017 10:54 - CONCLUSION: No acute cardiopulmonary process. Kirby Trejo MD Liver Ultrasound 11/10/17 0000 Signed Impressions: Service Date/Time: Friday, November 10, 2017 14:47 - CONCLUSION: 1. Liver and spleen are both enlarged with multiple diffuse hepatic fatty infiltration. 2. Linear echogenic area within the lateral mid body of the spleen may represent a focal area of scarring. 3. Benign renal cortical cysts of the right kidney. 4. Small 3 mm gallbladder polyp. Gallbladder is otherwise sonographically normal. Kirby Trejo MD Brain MRI 11/10/17 0000 Signed Impressions: Service Date/Time: Friday, November 10, 2017 20:51 - CONCLUSION: The eighth of diminished attenuation involving the left frontoparietal junction on the patient's prior CT examination corresponds to acute infarction in addition to multiple other areas of new acute infarction bilaterally not present on the prior MRI dated 09/10/2017 and previously seen acute infarctions on the right side on that study have been evolved. Findings were discussed with the patient's nurse Chandan on 11/10/2017 9:19 PM. Fernanda Padilla MD Objective Remarks GENERAL: This is a well-nourished, well-developed patient, in no apparent distress. CARDIOVASCULAR: Regular rate and regular rhythm without murmurs, gallops, or rubs. RESPIRATORY: Clear to auscultation. Breath sounds equal bilaterally. No wheezes , rales, or rhonchi. GASTROINTESTINAL: Abdomen soft, non-tender, nondistended. Normal, active bowel sounds MUSCULOSKELETAL: Extremities without clubbing, cyanosis, or edema. NEURO: awake and alert. Medications and IVs Inpatient Medications Acetaminophen (Tylenol Supp) 650 mg ONCE ONCE RECTAL Last administered on 11/10at 11:41; Start 11/10/17 at 11:30; Stop 11/10/17 at 11:31; Status DC Ampicillin Sodium 2000 mg/Sodium Chloride 100 ml @ 400 mls/hr Q4H IV Last administered on 11/25/17at 10:00; Start 11/20/17 at 16:00 Aspirin (Aspirin Supp) 300 mg ONCE ONCE RECTAL Last administered on 11/10/17at 13:21; Start 11/10/17 at 13:00; Stop 11/10/17 at 13:02; Status DC Bisacodyl (Dulcolax Supp) 10 mg DAILY PRN RECTAL SEVERE CONSITIPATION; Start at 14:15 Cefepime HCl 2000 mg/Sodium Chloride 100 ml @ 200 mls/hr Q8H IV Last administered on 11/25/17at 04:58; Start 11/20/17 at 20:00 Diatrizoate Meglum/ Diatrizoate Sod ( Gastroview Liq) 18 ml ONCE ONCE PO Last administered on 11/16/17at 10:04; Start 11/16/17 at 09:15; Stop 11/16/17 at 09:16; Status DC Heparin Sodium (Porcine) (Heparin Inj) 5,000 units Q8H SQ Last administered on 11/25/17at 06:15; Start 11/10/17 at 14:15 Lactulose (Lactulose Liq) 30 ml DAILY PRN PO SEVERE CONSITIPATION; Start at 14:15 Magnesium Hydroxide (Milk Of Magnesia Liq) 30 ml Q12H PRN PO Mild constipation ; Start 11/10/17 at 14:15 Miscellaneous Information SPECIFIC LAB TO BE DRAWN:VANCOMYCIN TROUGH DATE TO... ONCE ONCE .XX Last administered on 11/12/17at 23:50; Start 11/12/17 at 23:45; Stop 11/12/17 at 23:46; Status DC Mupirocin (Bactroban Nasal 2% Oint) 1 applic BID NASAL Last administered on at 20:58; Start 11/10/17 at 21:00 Naloxone HCl (Narcan Inj) 0.4 mg UNSCH PRN IV PUSH SEE LABEL COMMENTS; Start at 14:15 Pharmacy Profile Note 0 ml @ 0 mls/hr UNSCH OTHER ; Start 11/11/17 at 15:30; Stop 11/15/17 at 08:10; Status DC Senna/Docusate Sodium (Arabella-Colace) 1 tab BID PO Last administered on 11/25/17at 09:59; Start 11/10/17 at 21:00 Sennosides (Senokot) 17.2 mg Q12H PRN PO Moderate constipation; Start 11/10/17 at 14:15 Sodium Chloride 2,000 ml @ 999 mls/hr Q2H1M IV Last administered on 11/10/17at 17:45; Start 11/10/17 at 17:45; Stop 11/10/17 at 19:45; Status DC Sodium Chloride (NS Flush) 2 ml BID IV FLUSH Last administered on 11/25/17at 09: 00; Start 11/10/17 at 21:00 Vancomycin HCl 750 mg/Sodium Chloride 257.5 ml @ 250 mls/hr ONCE ONCE IV Last administered on 11/10/17at 18:48; Start 11/10/17 at 16:00; Stop 11/10/17 at 17:01; Status DC Vancomycin HCl 1000 mg/Sodium Chloride 250 ml @ 250 mls/hr ONCE STAT IV Last administered on 11/10/17at 13:21; Start 11/10/17 at 10:36; Stop 11/10/17 at 11:35 ; Status DC Vancomycin HCl 1250 mg/Sodium Chloride 262.5 ml @ 250 mls/hr Q12H IV Last administered on 11/14/17at 19:49; Start 11/13/17 at 20:00; Stop 11/15/17 at 08:10 ; Status DC A/P Problem List: (1) Bacteremia ICD Code: R78.81 - Bacteremia (2) UTI (urinary tract infection) ICD Code: N39.0 - Urinary tract infection, site not specified (3) CVA (cerebral vascular accident) ICD Code: I63.9 - Cerebral infarction, unspecified (4) Cocaine abuse ICD Code: F14.10 - Cocaine abuse, uncomplicated (5) Aortic valve endocarditis ICD Code: I35.8 - Other nonrheumatic aortic valve disorders Assessment and Plan Aortic valve endocarditis Effect on multiple organ systems. Please see imaging above. Continue on broad-spectrum antibiotics as per infectious disease neurology- has signed off- Infectious disease ff. Continue antibiotics as per infectious disease. CT chest with pneumonia likely secondary to infected emboli. Appreciate infectious disease assistance. Steatosis on liver US -/ etoh. f/u PCP Swollen Ankle Xray negative for acute process Ultrasound negative for DVT. No sign of acute ankle infection. Continue to monitor. Shrimper was consulted and following. Per director security management recommend compress elevate and continue warm compress with continued ABXs since ankle is improving. Shrimper stated that if there is any worsening of symptoms can reconsult. Social situation. Patient with history of IV drug use, noncompliance. Patient has requested to forego treatment. Per psychiatrist patient does not have the capacity to make medical decisions. DVT prophylaxis -Encourage ambulation. Discharge Planning on IV antibiotics. patient is a self-pay. Aurora Choi MD Nov 25, 2017 10:26
[2017-11-25 12:00] VITALS: BP 100/47; PULSE 82; RESP 18; TEMP 97.1; O2SAT 94
[2017-11-25 16:00] VITALS: BP 109/52; PULSE 83; RESP 18; TEMP 97.7; O2SAT 96
[2017-11-25 20:00] VITALS: BP 104/50; PULSE 84; RESP 17; TEMP 96.8; O2SAT 96
[2017-11-26] MEDS: SODIUM CHLOR 0.9% 1000 ML INJ 1,000 ML IV SCH ×3 (00:07→20:07)
[2017-11-26] MEDS: AMPICILLIN INJ 2,000 MG in SODIUM CHLORIDE 0.9% INJ 100 ML IV SCH ×6 (00:10→20:13)
[2017-11-26 01:15] VITALS: BP 100/42; PULSE 80; RESP 17; TEMP 97.6; O2SAT 96
[2017-11-26] MEDS: CEFEPIME INJ 2,000 MG in SODIUM CHLORIDE 0.9% INJ 100 ML IV SCH ×3 (04:23→20:14)
[2017-11-26] MEDS: HEPARIN SODIUM - SQ 10,000 UNITS/ML VIAL SQ SCH ×3 (06:28→22:01)
[2017-11-26 08:00] VITALS: BP 108/48; PULSE 79; RESP 17; TEMP 97.8; O2SAT 97
[2017-11-26] MEDS: MUPIROCIN 2% OINT 1 APPLIC/GM SYR NASAL SCH ×2 (08:31→20:13)
[2017-11-26] MEDS: DOCUSATE SODIUM 50 MG/SENNA 8.6 MG TAB PO SCH ×2 (08:31→20:13)
[2017-11-26] MEDS: SODIUM CHLORIDE 0.9% FLUSH 10 ML FLUSH IV FLUSH SCH ×2 (08:32→20:14)
[2017-11-26 12:00] VITALS: BP 114/43; PULSE 83; RESP 17; TEMP 97.7; O2SAT 98
--- NOTE | 2017-11-26 12:48 | HHI.PR ---
Subjective Remarks in no acute distress. denies pain. remains afebrile. Objective Vitals Vital Signs Date Time Temp Pulse Resp B/P (MAP) Pulse Ox O2 Delivery O2 Flow Rate FiO2 11/26/17 12:00 97.7 83 17 114/43 (66) 98 11/26/17 08:00 97.8 79 17 108/48 (68) 97 11/26/17 01:15 97.6 80 17 100/42 (61) 96 11/25/17 20:00 96.8 84 17 104/50 (68) 96 11/25/17 16:00 97.7 83 18 109/52 (71) 96 I/O 11/25/17 11/25/17 11/25/17 11/26/17 11/26/17 11/26/17 07:00 15:00 23:00 07:00 15:00 23:00 Intake Total 720 ml 200 ml 300 ml 740 ml Balance 720 ml 200 ml 300 ml 740 ml Intake Oral 720 ml 640 ml IV Total 200 ml 300 ml 100 ml # Voids 6 3 # Bowel Movements 1 0 Imaging Last Impressions Lower Extremity Ultrasound 11/19/17 0000 Signed Impressions: Service Date/Time: Sunday, November 19, 2017 08:30 - CONCLUSION: Complex fluid collection in the posterior medial soft tissues measuring up to 1.2 cm, correlating with the findings seen on recent MRI. Seth Vrema MD Ankle MRI 11/17/17 0000 Signed Impressions: Service Date/Time: Friday, November 17, 2017 21:51 - CONCLUSION: 1. Normal marrow edema with no evidence of osteomyelitis. 2. Soft tissue edema along the medial ankle with 1.2 cm focal area of abnormality which could represent a small abscess or cystic structure. This did not enhance. 3. Mild tenosynovitis involving the flexor digitorum longus tendon, tibialis posterior tendon and peroneus longus tendon Jerad Santos MD Chest CT 11/16/17 0000 Signed Impressions: Service Date/Time: Thursday, November 16, 2017 12:55 - CONCLUSION: 1. Trace right and small left pleural effusions with associated airspace consolidation at the lung bases. Differential considerations include aspiration or pneumonia with reactive effusions versus pleural effusions with compressive atelectasis. 2. Partially imaged right shaped defects in the azygous portions of the spleen which may reflect splenic infarcts. 3. Eccentric aortic valve calcifications consistent with prior history of aortic valve endocarditis. Russell Jose MD Abdomen/Pelvis CT 11/16/17 0000 Signed Impressions: Service Date/Time: Thursday, November 16, 2017 12:57 - CONCLUSION: 1. Stable probable embolic splenic and renal infarcts. 2. No acute abnormality or significant interval change. Specifically, no evidence for drainable abscess in the abdomen. Russell Jose MD Ankle X-Ray 11/14/17 0000 Signed Impressions: Service Date/Time: Tuesday, November 14, 2017 14:00 - CONCLUSION: Unremarkable examination of the right ankle. Valeriy Chapa MD Head CT 11/10/17 1036 Signed Impressions: Service Date/Time: Friday, November 10, 2017 12:16 - CONCLUSION: There is abnormal low density, likely representing cytotoxic edema, in the left frontal lobe. This very likely is related to a recent ischemic event. Reji Dasilva MD Chest X-Ray 11/10/17 1036 Signed Impressions: Service Date/Time: Friday, November 10, 2017 10:54 - CONCLUSION: No acute cardiopulmonary process. Kirby Trejo MD Liver Ultrasound 11/10/17 0000 Signed Impressions: Service Date/Time: Friday, November 10, 2017 14:47 - CONCLUSION: 1. Liver and spleen are both enlarged with multiple diffuse hepatic fatty infiltration. 2. Linear echogenic area within the lateral mid body of the spleen may represent a focal area of scarring. 3. Benign renal cortical cysts of the right kidney. 4. Small 3 mm gallbladder polyp. Gallbladder is otherwise sonographically normal. Kirby Trejo MD Brain MRI 11/10/17 0000 Signed Impressions: Service Date/Time: Friday, November 10, 2017 20:51 - CONCLUSION: The eighth of diminished attenuation involving the left frontoparietal junction on the patient's prior CT examination corresponds to acute infarction in addition to multiple other areas of new acute infarction bilaterally not present on the prior MRI dated 09/10/2017 and previously seen acute infarctions on the right side on that study have been evolved. Findings were discussed with the patient's nurse Chandan on 11/10/2017 9:19 PM. Fernanda Padilla MD Objective Remarks GENERAL: This is a well-nourished, well-developed patient, in no apparent distress. CARDIOVASCULAR: Regular rate and regular rhythm without murmurs, gallops, or rubs. RESPIRATORY: Clear to auscultation. Breath sounds equal bilaterally. No wheezes , rales, or rhonchi. GASTROINTESTINAL: Abdomen soft, non-tender, nondistended. Normal, active bowel sounds MUSCULOSKELETAL: Extremities without clubbing, cyanosis, or edema. NEURO: awake and alert. Medications and IVs Inpatient Medications Acetaminophen (Tylenol Supp) 650 mg ONCE ONCE RECTAL Last administered on 11/10 11:41; Start 11/10/17 at 11:30; Stop 11/10/17 at 11:31; Status DC Ampicillin Sodium 2000 mg/Sodium Chloride 100 ml @ 400 mls/hr Q4H IV Last administered on 11/26/17 12:16; Start 11/20/17 at 16:00 Aspirin (Aspirin Supp) 300 mg ONCE ONCE RECTAL Last administered on 11/10/17 13:21; Start 11/10/17 at 13:00; Stop 11/10/17 at 13:02; Status DC Bisacodyl (Dulcolax Supp) 10 mg DAILY PRN RECTAL SEVERE CONSITIPATION; Start at 14:15 Cefepime HCl 2000 mg/Sodium Chloride 100 ml @ 200 mls/hr Q8H IV Last administered on 11/26/17 11:59; Start 11/20/17 at 20:00 Diatrizoate Meglum/ Diatrizoate Sod ( Gastroview Liq) 18 ml ONCE ONCE PO Last administered on 11/16/17at 10:04; Start 11/16/17 at 09:15; Stop 11/16/17 at 09:16; Status DC Heparin Sodium (Porcine) (Heparin Inj) 5,000 units Q8H SQ Last administered on 11/26/17 12:15; Start 11/10/17 at 14:15 Lactulose (Lactulose Liq) 30 ml DAILY PRN PO SEVERE CONSITIPATION; Start at 14:15 Magnesium Hydroxide (Milk Of Magnesia Liq) 30 ml Q12H PRN PO Mild constipation ; Start 11/10/17 at 14:15 Miscellaneous Information SPECIFIC LAB TO BE DRAWN:VANCOMYCIN TROUGH DATE TO... ONCE ONCE .XX Last administered on 11/12/17at 23:50; Start 11/12/17 at 23:45; Stop 11/12/17 at 23:46; Status DC Mupirocin (Bactroban Nasal 2% Oint) 1 applic BID NASAL Last administered on 11/26 08:31; Start 11/10/17 at 21:00 Naloxone HCl (Narcan Inj) 0.4 mg UNSCH PRN IV PUSH SEE LABEL COMMENTS; Start at 14:15 Pharmacy Profile Note 0 ml @ 0 mls/hr UNSCH OTHER ; Start 11/11/17 at 15:30; Stop 11/15/17 at 08:10; Status DC Senna/Docusate Sodium (Arabella-Colace) 1 tab BID PO Last administered on 11/26/17at 08:31; Start 11/10/17 at 21:00 Sennosides (Senokot) 17.2 mg Q12H PRN PO Moderate constipation; Start 11/10/17 at 14:15 Sodium Chloride 2,000 ml @ 999 mls/hr Q2H1M IV Last administered on 11/10/17at 17:45; Start 11/10/17 at 17:45; Stop 11/10/17 at 19:45; Status DC Sodium Chloride (NS Flush) 2 ml BID IV FLUSH Last administered on 11/26/17at 08: 32; Start 11/10/17 at 21:00 Vancomycin HCl 750 mg/Sodium Chloride 257.5 ml @ 250 mls/hr ONCE ONCE IV Last administered on 11/10/17at 18:48; Start 11/10/17 at 16:00; Stop 11/10/17 at 17:01; Status DC Vancomycin HCl 1000 mg/Sodium Chloride 250 ml @ 250 mls/hr ONCE STAT IV Last administered on 11/10/17at 13:21; Start 11/10/17 at 10:36; Stop 11/10/17 at 11:35 ; Status DC Vancomycin HCl 1250 mg/Sodium Chloride 262.5 ml @ 250 mls/hr Q12H IV Last administered on 11/14/17at 19:49; Start 11/13/17 at 20:00; Stop 11/15/17 at 08:10 ; Status DC A/P Problem List: (1) Bacteremia ICD Code: R78.81 - Bacteremia (2) UTI (urinary tract infection) ICD Code: N39.0 - Urinary tract infection, site not specified (3) CVA (cerebral vascular accident) ICD Code: I63.9 - Cerebral infarction, unspecified (4) Cocaine abuse ICD Code: F14.10 - Cocaine abuse, uncomplicated (5) Aortic valve endocarditis ICD Code: I35.8 - Other nonrheumatic aortic valve disorders Assessment and Plan Aortic valve endocarditis pseudomonas bacteremia septic splenic/renal infarcts Effect on multiple organ systems. Please see imaging above. Continue on broad-spectrum antibiotics as per infectious disease neurology- has signed off- Infectious disease ff. Continue antibiotics as per infectious disease. CT chest with pneumonia likely secondary to infected emboli. Appreciate infectious disease assistance. 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 Steatosis on liver US -/ etoh. f/u PCP Swollen Ankle Xray negative for acute process Ultrasound negative for DVT. No sign of acute ankle infection. Continue to monitor. Batch Blender was consulted and following. Per commodity loan clerk recommend compress elevate and continue warm compress with continued ABXs since ankle is improving. Batch Blender stated that if there is any worsening of symptoms can reconsult. Social situation. Patient with history of IV drug use, noncompliance. Patient has requested to forego treatment. Per psychiatrist patient does not have the capacity to make medical decisions. DVT prophylaxis -Encourage ambulation. Discharge Planning on IV antibiotics. patient is a self-pay. Aurora Choi MD Nov 26, 2017 12:48
[2017-11-26 16:00] VITALS: BP 119/56; PULSE 80; RESP 17; TEMP 96.8; O2SAT 97
[2017-11-26 20:00] VITALS: BP 95/57; PULSE 82; RESP 18; TEMP 97.1; O2SAT 96
[2017-11-27] VITALS: BP 101/46; PULSE 84; RESP 18; TEMP 97.1; O2SAT 95
[2017-11-27] MEDS: AMPICILLIN INJ 2,000 MG in SODIUM CHLORIDE 0.9% INJ 100 ML IV SCH ×6 (00:08→22:03)
[2017-11-27] MEDS: CEFEPIME INJ 2,000 MG in SODIUM CHLORIDE 0.9% INJ 100 ML IV SCH ×3 (03:37→22:03)
[2017-11-27] MEDS: SODIUM CHLOR 0.9% 1000 ML INJ 1,000 ML IV SCH ×2 (03:37→15:53)
[2017-11-27] MEDS: HEPARIN SODIUM - SQ 10,000 UNITS/ML VIAL SQ SCH ×3 (06:15→22:05)
[2017-11-27 08:00] VITALS: BP 133/62; PULSE 82; RESP 19; TEMP 95.9; O2SAT 94
[2017-11-27] MEDS: DOCUSATE SODIUM 50 MG/SENNA 8.6 MG TAB PO SCH ×2 (08:23→21:00)
[2017-11-27] MEDS: SODIUM CHLORIDE 0.9% FLUSH 10 ML FLUSH IV FLUSH SCH ×2 (08:23→22:04)
[2017-11-27] MEDS: MUPIROCIN 2% OINT 1 APPLIC/GM SYR NASAL SCH ×2 (08:23→21:00)
--- NOTE | 2017-11-27 11:08 | HHI.PR ---
Subjective Remarks in no acute distress. resting comfortably. denies pain. no fever. Objective Vitals Vital Signs Date Time Temp Pulse Resp B/P (MAP) Pulse Ox O2 Delivery O2 Flow Rate FiO2 11/27/17 08:00 95.9 82 19 133/62 (85) 94 11/27/17 00:00 97.1 84 18 101/46 (64) 95 11/26/17 20:00 97.1 82 18 95/57 (70) 96 11/26/17 16:00 96.8 80 17 119/56 (77) 97 11/26/17 12:00 97.7 83 17 114/43 (66) 98 I/O 11/26/17 11/26/17 11/26/17 11/27/17 11/27/17 11/27/17 07:00 15:00 23:00 07:00 15:00 23:00 Intake Total 300 ml 1420 ml 540 ml 540 ml Output Total 150 ml Balance 300 ml 1420 ml 540 ml 390 ml Intake Oral 1120 ml 240 ml 240 ml IV Total 300 ml 300 ml 300 ml 300 ml Output Urine Total 150 ml # Voids 9 1 1 # Bowel Movements 0 0 0 Imaging Last Impressions Lower Extremity Ultrasound 11/19/17 0000 Signed Impressions: Service Date/Time: Sunday, November 19, 2017 08:30 - CONCLUSION: Complex fluid collection in the posterior medial soft tissues measuring up to 1.2 cm, correlating with the findings seen on recent MRI. Seth Verma MD Ankle MRI 11/17/17 0000 Signed Impressions: Service Date/Time: Friday, November 17, 2017 21:51 - CONCLUSION: 1. Normal marrow edema with no evidence of osteomyelitis. 2. Soft tissue edema along the medial ankle with 1.2 cm focal area of abnormality which could represent a small abscess or cystic structure. This did not enhance. 3. Mild tenosynovitis involving the flexor digitorum longus tendon, tibialis posterior tendon and peroneus longus tendon Jerad Santos MD Chest CT 11/16/17 0000 Signed Impressions: Service Date/Time: Thursday, November 16, 2017 12:55 - CONCLUSION: 1. Trace right and small left pleural effusions with associated airspace consolidation at the lung bases. Differential considerations include aspiration or pneumonia with reactive effusions versus pleural effusions with compressive atelectasis. 2. Partially imaged right shaped defects in the azygous portions of the spleen which may reflect splenic infarcts. 3. Eccentric aortic valve calcifications consistent with prior history of aortic valve endocarditis. Russell Jose MD Abdomen/Pelvis CT 11/16/17 0000 Signed Impressions: Service Date/Time: Thursday, November 16, 2017 12:57 - CONCLUSION: 1. Stable probable embolic splenic and renal infarcts. 2. No acute abnormality or significant interval change. Specifically, no evidence for drainable abscess in the abdomen. Russell Jose MD Ankle X-Ray 11/14/17 0000 Signed Impressions: Service Date/Time: Tuesday, November 14, 2017 14:00 - CONCLUSION: Unremarkable examination of the right ankle. Valeriy Chapa MD Head CT 11/10/17 1036 Signed Impressions: Service Date/Time: Friday, November 10, 2017 12:16 - CONCLUSION: There is abnormal low density, likely representing cytotoxic edema, in the left frontal lobe. This very likely is related to a recent ischemic event. Reji Dasilva MD Chest X-Ray 11/10/17 1036 Signed Impressions: Service Date/Time: Friday, November 10, 2017 10:54 - CONCLUSION: No acute cardiopulmonary process. Kirby Trejo MD Liver Ultrasound 11/10/17 0000 Signed Impressions: Service Date/Time: Friday, November 10, 2017 14:47 - CONCLUSION: 1. Liver and spleen are both enlarged with multiple diffuse hepatic fatty infiltration. 2. Linear echogenic area within the lateral mid body of the spleen may represent a focal area of scarring. 3. Benign renal cortical cysts of the right kidney. 4. Small 3 mm gallbladder polyp. Gallbladder is otherwise sonographically normal. Kirby Trejo MD Brain MRI 11/10/17 0000 Signed Impressions: Service Date/Time: Friday, November 10, 2017 20:51 - CONCLUSION: The eighth of diminished attenuation involving the left frontoparietal junction on the patient's prior CT examination corresponds to acute infarction in addition to multiple other areas of new acute infarction bilaterally not present on the prior MRI dated 09/10/2017 and previously seen acute infarctions on the right side on that study have been evolved. Findings were discussed with the patient's nurse Chandan on 11/10/2017 9:19 PM. Fernanda Padilla MD Objective Remarks GENERAL: This is a well-nourished, well-developed patient, in no apparent distress. CARDIOVASCULAR: Regular rate and regular rhythm without murmurs, gallops, or rubs. RESPIRATORY: Clear to auscultation. Breath sounds equal bilaterally. No wheezes , rales, or rhonchi. GASTROINTESTINAL: Abdomen soft, non-tender, nondistended. Normal, active bowel sounds MUSCULOSKELETAL: Extremities without clubbing, cyanosis, or edema. NEURO: awake and alert. Medications and IVs Inpatient Medications Acetaminophen (Tylenol Supp) 650 mg ONCE ONCE RECTAL Last administered on 11/10at 11:41; Start 11/10/17 at 11:30; Stop 11/10/17 at 11:31; Status DC Ampicillin Sodium 2000 mg/Sodium Chloride 100 ml @ 400 mls/hr Q4H IV Last administered on 11/27/17at 08:23; Start 11/20/17 at 16:00 Aspirin (Aspirin Supp) 300 mg ONCE ONCE RECTAL Last administered on 11/10/17at 13:21; Start 11/10/17 at 13:00; Stop 11/10/17 at 13:02; Status DC Bisacodyl (Dulcolax Supp) 10 mg DAILY PRN RECTAL SEVERE CONSITIPATION; Start at 14:15 Cefepime HCl 2000 mg/Sodium Chloride 100 ml @ 200 mls/hr Q8H IV Last administered on 11/27/17at 03:37; Start 11/20/17 at 20:00 Diatrizoate Meglum/ Diatrizoate Sod ( Gastroview Liq) 18 ml ONCE ONCE PO Last administered on 11/16/17at 10:04; Start 11/16/17 at 09:15; Stop 11/16/17 at 09:16; Status DC Heparin Sodium (Porcine) (Heparin Inj) 5,000 units Q8H SQ Last administered on 11/27/17at 06:15; Start 11/10/17 at 14:15 Lactulose (Lactulose Liq) 30 ml DAILY PRN PO SEVERE CONSITIPATION; Start at 14:15 Magnesium Hydroxide (Milk Of Magnesia Liq) 30 ml Q12H PRN PO Mild constipation ; Start 11/10/17 at 14:15 Miscellaneous Information SPECIFIC LAB TO BE DRAWN:VANCOMYCIN TROUGH DATE TO... ONCE ONCE .XX Last administered on 11/12/17at 23:50; Start 11/12/17 at 23:45; Stop 11/12/17 at 23:46; Status DC Mupirocin (Bactroban Nasal 2% Oint) 1 applic BID NASAL Last administered on 11/26at 08:31; Start 11/10/17 at 21:00 Naloxone HCl (Narcan Inj) 0.4 mg UNSCH PRN IV PUSH SEE LABEL COMMENTS; Start at 14:15 Pharmacy Profile Note 0 ml @ 0 mls/hr UNSCH OTHER ; Start 11/11/17 at 15:30; Stop 11/15/17 at 08:10; Status DC Senna/Docusate Sodium (Arabella-Colace) 1 tab BID PO Last administered on 11/27/17at 08:23; Start 11/10/17 at 21:00 Sennosides (Senokot) 17.2 mg Q12H PRN PO Moderate constipation; Start 11/10/17 at 14:15 Sodium Chloride 2,000 ml @ 999 mls/hr Q2H1M IV Last administered on 11/10/17at 17:45; Start 11/10/17 at 17:45; Stop 11/10/17 at 19:45; Status DC Sodium Chloride (NS Flush) 2 ml BID IV FLUSH Last administered on 11/27/17at 08: 23; Start 11/10/17 at 21:00 Vancomycin HCl 750 mg/Sodium Chloride 257.5 ml @ 250 mls/hr ONCE ONCE IV Last administered on 11/10/17at 18:48; Start 11/10/17 at 16:00; Stop 11/10/17 at 17:01; Status DC Vancomycin HCl 1000 mg/Sodium Chloride 250 ml @ 250 mls/hr ONCE STAT IV Last administered on 11/10/17at 13:21; Start 11/10/17 at 10:36; Stop 11/10/17 at 11:35 ; Status DC Vancomycin HCl 1250 mg/Sodium Chloride 262.5 ml @ 250 mls/hr Q12H IV Last administered on 11/14/17at 19:49; Start 11/13/17 at 20:00; Stop 11/15/17 at 08:10 ; Status DC A/P Problem List: (1) Bacteremia ICD Code: R78.81 - Bacteremia (2) UTI (urinary tract infection) ICD Code: N39.0 - Urinary tract infection, site not specified (3) CVA (cerebral vascular accident) ICD Code: I63.9 - Cerebral infarction, unspecified (4) Cocaine abuse ICD Code: F14.10 - Cocaine abuse, uncomplicated (5) Aortic valve endocarditis ICD Code: I35.8 - Other nonrheumatic aortic valve disorders Assessment and Plan Aortic valve endocarditis pseudomonas bacteremia septic splenic/renal infarcts Effect on multiple organ systems. Please see imaging above. Continue on broad-spectrum antibiotics as per infectious disease Infectious disease ff. Continue antibiotics as per infectious disease. CT chest with pneumonia likely secondary to infected emboli. Appreciate infectious disease assistance. 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 Steatosis on liver US -10/29 etoh. f/u PCP Swollen Ankle Xray negative for acute process Ultrasound negative for DVT. No sign of acute ankle infection. Continue to monitor. Instructor Dancing was consulted and following. Per procurement analyst recommend compress elevate and continue warm compress with continued ABXs since ankle is improving. Instructor Dancing stated that if there is any worsening of symptoms can reconsult. Social situation. Patient with history of IV drug use, noncompliance. Patient has requested to forego treatment. Per psychiatrist patient does not have the capacity to make medical decisions. DVT prophylaxis -Encourage ambulation. Discharge Planning on IV antibiotics. patient is a self-pay. Aurora Choi MD Nov 27, 2017 11:08
[2017-11-27 12:00] VITALS: BP 109/52; PULSE 80; RESP 19; TEMP 97.9; O2SAT 97
[2017-11-27 16:00] VITALS: BP 114/57; PULSE 87; RESP 19; TEMP 97.2; O2SAT 97
[2017-11-27 19:58] VITALS: BP 97/50; PULSE 78; RESP 16; TEMP 96.8; O2SAT 96
[2017-11-28] VITALS: BP 114/58; PULSE 80; RESP 16; TEMP 96.6; O2SAT 99
[2017-11-28] MEDS: SODIUM CHLOR 0.9% 1000 ML INJ 1,000 ML IV SCH ×3 (02:07→22:07)
[2017-11-28] MEDS: AMPICILLIN INJ 2,000 MG in SODIUM CHLORIDE 0.9% INJ 100 ML IV SCH ×7 (04:00→20:00)
[2017-11-28] MEDS: CEFEPIME INJ 2,000 MG in SODIUM CHLORIDE 0.9% INJ 100 ML IV SCH ×3 (04:00→20:00)
[2017-11-28] MEDS: HEPARIN SODIUM - SQ 10,000 UNITS/ML VIAL SQ SCH ×2 (05:02→12:09)
[2017-11-28 08:00] VITALS: BP 120/54; PULSE 79; RESP 18; TEMP 97.5; O2SAT 96
[2017-11-28] MEDS: MUPIROCIN 2% OINT 1 APPLIC/GM SYR NASAL SCH ×2 (09:00→21:00)
[2017-11-28] MEDS: DOCUSATE SODIUM 50 MG/SENNA 8.6 MG TAB PO SCH (09:00)
[2017-11-28] MEDS: SODIUM CHLORIDE 0.9% FLUSH 10 ML FLUSH IV FLUSH SCH (09:13)
--- NOTE | 2017-11-28 10:48 | HHI.PR ---
Subjective Remarks in no acute distress. no fever. denies pain. no new complaints. Objective Vitals Vital Signs Date Time Temp Pulse Resp B/P (MAP) Pulse Ox O2 Delivery O2 Flow Rate FiO2 11/28/17 08:00 97.5 79 18 120/54 (76) 96 11/28/17 00:00 96.6 80 16 114/58 (76) 99 11/27/17 19:58 96.8 78 16 97/50 (66) 96 11/27/17 16:00 97.2 87 19 114/57 (76) 97 11/27/17 12:00 97.9 80 19 109/52 (71) 97 I/O 11/27/17 11/27/17 11/27/17 11/28/17 11/28/17 11/28/17 06:59 14:59 22:59 06:59 14:59 22:59 Intake Total 540 ml 780 ml 240 ml 240 ml Output Total 150 ml Balance 390 ml 780 ml 240 ml 240 ml Intake Oral 240 ml 480 ml 240 ml 240 ml IV Total 300 ml 300 ml Output Urine Total 150 ml # Voids 1 5 1 1 # Bowel Movements 0 2 0 0 Imaging Last Impressions Lower Extremity Ultrasound 11/19/17 0000 Signed Impressions: Service Date/Time: Sunday, November 19, 2017 08:30 - CONCLUSION: Complex fluid collection in the posterior medial soft tissues measuring up to 1.2 cm, correlating with the findings seen on recent MRI. Seth Verma MD Ankle MRI 11/17/17 0000 Signed Impressions: Service Date/Time: Friday, November 17, 2017 21:51 - CONCLUSION: 1. Normal marrow edema with no evidence of osteomyelitis. 2. Soft tissue edema along the medial ankle with 1.2 cm focal area of abnormality which could represent a small abscess or cystic structure. This did not enhance. 3. Mild tenosynovitis involving the flexor digitorum longus tendon, tibialis posterior tendon and peroneus longus tendon Jerad Santos MD Chest CT 11/16/17 0000 Signed Impressions: Service Date/Time: Thursday, November 16, 2017 12:55 - CONCLUSION: 1. Trace right and small left pleural effusions with associated airspace consolidation at the lung bases. Differential considerations include aspiration or pneumonia with reactive effusions versus pleural effusions with compressive atelectasis. 2. Partially imaged right shaped defects in the azygous portions of the spleen which may reflect splenic infarcts. 3. Eccentric aortic valve calcifications consistent with prior history of aortic valve endocarditis. Russell Jose MD Abdomen/Pelvis CT 11/16/17 0000 Signed Impressions: Service Date/Time: Thursday, November 16, 2017 12:57 - CONCLUSION: 1. Stable probable embolic splenic and renal infarcts. 2. No acute abnormality or significant interval change. Specifically, no evidence for drainable abscess in the abdomen. Russell Jose MD Ankle X-Ray 11/14/17 0000 Signed Impressions: Service Date/Time: Tuesday, November 14, 2017 14:00 - CONCLUSION: Unremarkable examination of the right ankle. Valeriy Chapa MD Head CT 11/10/17 1036 Signed Impressions: Service Date/Time: Friday, November 10, 2017 12:16 - CONCLUSION: There is abnormal low density, likely representing cytotoxic edema, in the left frontal lobe. This very likely is related to a recent ischemic event. Reji Dasilva MD Chest X-Ray 11/10/17 1036 Signed Impressions: Service Date/Time: Friday, November 10, 2017 10:54 - CONCLUSION: No acute cardiopulmonary process. Kirby Trejo MD Liver Ultrasound 11/10/17 0000 Signed Impressions: Service Date/Time: Friday, November 10, 2017 14:47 - CONCLUSION: 1. Liver and spleen are both enlarged with multiple diffuse hepatic fatty infiltration. 2. Linear echogenic area within the lateral mid body of the spleen may represent a focal area of scarring. 3. Benign renal cortical cysts of the right kidney. 4. Small 3 mm gallbladder polyp. Gallbladder is otherwise sonographically normal. Kirby Trejo MD Brain MRI 11/10/17 0000 Signed Impressions: Service Date/Time: Friday, November 10, 2017 20:51 - CONCLUSION: The eighth of diminished attenuation involving the left frontoparietal junction on the patient's prior CT examination corresponds to acute infarction in addition to multiple other areas of new acute infarction bilaterally not present on the prior MRI dated 09/10/2017 and previously seen acute infarctions on the right side on that study have been evolved. Findings were discussed with the patient's nurse Chandan on 11/10/2017 9:19 PM. Fernanda Padilla MD Objective Remarks GENERAL: This is a well-nourished, well-developed patient, in no apparent distress. CARDIOVASCULAR: Regular rate and regular rhythm without murmurs, gallops, or rubs. RESPIRATORY: Clear to auscultation. Breath sounds equal bilaterally. No wheezes , rales, or rhonchi. GASTROINTESTINAL: Abdomen soft, non-tender, nondistended. Normal, active bowel sounds MUSCULOSKELETAL: Extremities without clubbing, cyanosis, or edema. NEURO: awake and alert. Medications and IVs Inpatient Medications Acetaminophen (Tylenol Supp) 650 mg ONCE ONCE RECTAL Last administered on 11/10at 11:41; Start 11/10/17 at 11:30; Stop 11/10/17 at 11:31; Status DC Ampicillin Sodium 2000 mg/Sodium Chloride 100 ml @ 400 mls/hr Q4H IV Last administered on 11/28/17at 09:13; Start 11/20/17 at 16:00 Aspirin (Aspirin Supp) 300 mg ONCE ONCE RECTAL Last administered on 11/10/17at 13:21; Start 11/10/17 at 13:00; Stop 11/10/17 at 13:02; Status DC Bisacodyl (Dulcolax Supp) 10 mg DAILY PRN RECTAL SEVERE CONSITIPATION; Start at 14:15 Cefepime HCl 2000 mg/Sodium Chloride 100 ml @ 200 mls/hr Q8H IV Last administered on 11/27/17at 22:03; Start 11/20/17 at 20:00 Diatrizoate Meglum/ Diatrizoate Sod ( Gastroview Liq) 18 ml ONCE ONCE PO Last administered on 11/16/17at 10:04; Start 11/16/17 at 09:15; Stop 11/16/17 at 09:16; Status DC Heparin Sodium (Porcine) (Heparin Inj) 5,000 units Q8H SQ Last administered on 11/27/17at 22:05; Start 11/10/17 at 14:15 Lactulose (Lactulose Liq) 30 ml DAILY PRN PO SEVERE CONSITIPATION; Start at 14:15 Magnesium Hydroxide (Milk Of Magnesia Liq) 30 ml Q12H PRN PO Mild constipation ; Start 11/10/17 at 14:15 Miscellaneous Information SPECIFIC LAB TO BE DRAWN:VANCOMYCIN TROUGH DATE TO... ONCE ONCE .XX Last administered on 11/12/17at 23:50; Start 11/12/17 at 23:45; Stop 11/12/17 at 23:46; Status DC Mupirocin (Bactroban Nasal 2% Oint) 1 applic BID NASAL Last administered on 11/26at 08:31; Start 11/10/17 at 21:00 Naloxone HCl (Narcan Inj) 0.4 mg UNSCH PRN IV PUSH SEE LABEL COMMENTS; Start at 14:15 Pharmacy Profile Note 0 ml @ 0 mls/hr UNSCH OTHER ; Start 11/11/17 at 15:30; Stop 11/15/17 at 08:10; Status DC Senna/Docusate Sodium (Arabella-Colace) 1 tab BID PO Last administered on 11/27/17at 08:23; Start 11/10/17 at 21:00 Sennosides (Senokot) 17.2 mg Q12H PRN PO Moderate constipation; Start 11/10/17 at 14:15 Sodium Chloride 2,000 ml @ 999 mls/hr Q2H1M IV Last administered on 11/10/17at 17:45; Start 11/10/17 at 17:45; Stop 11/10/17 at 19:45; Status DC Sodium Chloride (NS Flush) 2 ml BID IV FLUSH Last administered on 11/28/17at 09: 13; Start 11/10/17 at 21:00 Vancomycin HCl 750 mg/Sodium Chloride 257.5 ml @ 250 mls/hr ONCE ONCE IV Last administered on 11/10/17at 18:48; Start 11/10/17 at 16:00; Stop 11/10/17 at 17:01; Status DC Vancomycin HCl 1000 mg/Sodium Chloride 250 ml @ 250 mls/hr ONCE STAT IV Last administered on 11/10/17at 13:21; Start 11/10/17 at 10:36; Stop 11/10/17 at 11:35 ; Status DC Vancomycin HCl 1250 mg/Sodium Chloride 262.5 ml @ 250 mls/hr Q12H IV Last administered on 11/14/17at 19:49; Start 11/13/17 at 20:00; Stop 11/15/17 at 08:10 ; Status DC A/P Problem List: (1) Bacteremia ICD Code: R78.81 - Bacteremia (2) UTI (urinary tract infection) ICD Code: N39.0 - Urinary tract infection, site not specified (3) CVA (cerebral vascular accident) ICD Code: I63.9 - Cerebral infarction, unspecified (4) Cocaine abuse ICD Code: F14.10 - Cocaine abuse, uncomplicated (5) Aortic valve endocarditis ICD Code: I35.8 - Other nonrheumatic aortic valve disorders Assessment and Plan Aortic valve endocarditis pseudomonas bacteremia septic splenic/renal infarcts Effect on multiple organ systems. Please see imaging above. Continue on broad-spectrum antibiotics as per infectious disease Infectious disease ff. Continue antibiotics as per infectious disease. CT chest with pneumonia likely secondary to infected emboli. Appreciate infectious disease assistance. repeat CBC and CMP tomorrow. 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 Steatosis on liver US -/ etoh. f/u PCP Swollen Ankle Xray negative for acute process Ultrasound negative for DVT. No sign of acute ankle infection. Continue to monitor. Gasoline Pump Installer was consulted and following. Per refractory furnace designer recommend compress elevate and continue warm compress with continued ABXs since ankle is improving. Gasoline Pump Installer stated that if there is any worsening of symptoms can reconsult. Social situation. Patient with history of IV drug use, noncompliance. Patient has requested to forego treatment. Per psychiatrist patient does not have the capacity to make medical decisions. DVT prophylaxis -Encourage ambulation. Discharge Planning on IV antibiotics. patient is a self-pay. Aurora Choi MD Nov 28, 2017 10:48
[2017-11-28 11:57] VITALS: BP 111/50; PULSE 81; RESP 18; TEMP 98.2; O2SAT 96
[2017-11-28 16:00] VITALS: BP 122/55; PULSE 75; RESP 18; TEMP 96; O2SAT 100
[2017-11-28 20:00] VITALS: BP 111/58; PULSE 85; RESP 15; TEMP 97.5; O2SAT 94
[2017-11-29] VITALS: BP 111/44; PULSE 81; RESP 17; TEMP 95.7; O2SAT 95
[2017-11-29] MEDS: SODIUM CHLORIDE 0.9% FLUSH 10 ML FLUSH IV FLUSH SCH ×3 (00:50→19:43)
[2017-11-29] MEDS: HEPARIN SODIUM - SQ 10,000 UNITS/ML VIAL SQ SCH ×4 (00:51→22:15)
[2017-11-29] MEDS: DOCUSATE SODIUM 50 MG/SENNA 8.6 MG TAB PO SCH ×3 (00:51→19:42)
[2017-11-29] MEDS: AMPICILLIN INJ 2,000 MG in SODIUM CHLORIDE 0.9% INJ 100 ML IV SCH ×6 (00:52→19:43)
[2017-11-29] MEDS: CEFEPIME INJ 2,000 MG in SODIUM CHLORIDE 0.9% INJ 100 ML IV SCH ×3 (04:43→22:15)
[2017-11-29] MEDS: MUPIROCIN 2% OINT 1 APPLIC/GM SYR NASAL SCH ×2 (07:17→19:28)
[2017-11-29] MEDS: SODIUM CHLOR 0.9% 1000 ML INJ 1,000 ML IV SCH ×3 (07:17→19:43)
[2017-11-29 08:00] VITALS: BP 121/58; PULSE 80; RESP 15; TEMP 97; O2SAT 95
[2017-11-29 09:36] LABS: AUTOMATED NEUTROPHIL # 4.8 TH/MM3 (1.8-7.7); BASOPHIL # 0.1 TH/MM3 (0-0.2); BASOPHIL % 1.1 % (0.0-2.0); EOSINOPHIL # 0.2 TH/MM3 (0-0.4); EOSINOPHIL % 2.8 % (0.0-4.0); HEMATOCRIT 30.9 % (39.0-51.0); HEMOGLOBIN 10.6 GM/DL (13.0-17.0); LYMPH % 25.7 % (9.0-44.0); LYMPHOCYTE # 1.9 TH/MM3 (1.0-4.8); MEAN CELL VOLUME 82.4 FL (80.0-100.0); MEAN CORPUSCULAR HEMOGLOBIN 28.4 PG (27.0-34.0); MEAN CORPUSCULAR HGB CONC 34.5 % (32.0-36.0); MEAN PLATELET VOLUME 7.5 FL (7.0-11.0); MONO % 7.1 % (0.0-8.0); MONOCYTE # 0.5 TH/MM3 (0-0.9); NEUT % 63.3 % (16.0-70.0); PLATELET COUNT 312 TH/MM3 (150-450); RED BLOOD COUNT 3.75 MIL/MM3 (4.50-5.90); RED CELL DISTRIBUTION WIDTH 16.1 % (11.6-17.2); WHITE BLOOD COUNT 7.6 TH/MM3 (4.0-11.0)
--- NOTE | 2017-11-29 10:04 | HHI.PR ---
Subjective Remarks in no acute distress. denies pain. no fever. no new complaints. Objective Vitals Vital Signs Date Time Temp Pulse Resp B/P (MAP) Pulse Ox O2 Delivery O2 Flow Rate FiO2 11/29/17 08:00 97.0 80 15 121/58 (79) 95 11/29/17 00:00 95.7 81 17 111/44 (66) 95 11/28/17 20:00 97.5 85 15 111/58 (75) 94 11/28/17 16:00 96.0 75 18 122/55 (77) 100 11/28/17 11:57 98.2 81 18 111/50 (70) 96 I/O 11/28/17 11/28/17 11/28/17 11/29/17 11/29/17 11/29/17 07:00 15:00 23:00 07:00 15:00 23:00 Intake Total 240 ml 1260 ml 500 ml 200 ml Balance 240 ml 1260 ml 500 ml 200 ml Intake Oral 240 ml 960 ml 400 ml 200 ml IV Total 300 ml 100 ml # Voids 1 4 2 # Bowel Movements 0 1 Result Diagram: 11/29/17 0844 Imaging Last Impressions Lower Extremity Ultrasound 11/19/17 0000 Signed Impressions: Service Date/Time: Sunday, November 19, 2017 08:30 - CONCLUSION: Complex fluid collection in the posterior medial soft tissues measuring up to 1.2 cm, correlating with the findings seen on recent MRI. Seth Verma MD Ankle MRI 11/17/17 0000 Signed Impressions: Service Date/Time: Friday, November 17, 2017 21:51 - CONCLUSION: 1. Normal marrow edema with no evidence of osteomyelitis. 2. Soft tissue edema along the medial ankle with 1.2 cm focal area of abnormality which could represent a small abscess or cystic structure. This did not enhance. 3. Mild tenosynovitis involving the flexor digitorum longus tendon, tibialis posterior tendon and peroneus longus tendon Jerad Santos MD Chest CT 11/16/17 0000 Signed Impressions: Service Date/Time: Thursday, November 16, 2017 12:55 - CONCLUSION: 1. Trace right and small left pleural effusions with associated airspace consolidation at the lung bases. Differential considerations include aspiration or pneumonia with reactive effusions versus pleural effusions with compressive atelectasis. 2. Partially imaged right shaped defects in the azygous portions of the spleen which may reflect splenic infarcts. 3. Eccentric aortic valve calcifications consistent with prior history of aortic valve endocarditis. Russell Jose MD Abdomen/Pelvis CT 11/16/17 0000 Signed Impressions: Service Date/Time: Thursday, November 16, 2017 12:57 - CONCLUSION: 1. Stable probable embolic splenic and renal infarcts. 2. No acute abnormality or significant interval change. Specifically, no evidence for drainable abscess in the abdomen. Russell Jose MD Ankle X-Ray 11/14/17 0000 Signed Impressions: Service Date/Time: Tuesday, November 14, 2017 14:00 - CONCLUSION: Unremarkable examination of the right ankle. Valeriy Chapa MD Head CT 11/10/17 1036 Signed Impressions: Service Date/Time: Friday, November 10, 2017 12:16 - CONCLUSION: There is abnormal low density, likely representing cytotoxic edema, in the left frontal lobe. This very likely is related to a recent ischemic event. Reji Dasilva MD Chest X-Ray 11/10/17 1036 Signed Impressions: Service Date/Time: Friday, November 10, 2017 10:54 - CONCLUSION: No acute cardiopulmonary process. Kirby Trejo MD Liver Ultrasound 11/10/17 0000 Signed Impressions: Service Date/Time: Friday, November 10, 2017 14:47 - CONCLUSION: 1. Liver and spleen are both enlarged with multiple diffuse hepatic fatty infiltration. 2. Linear echogenic area within the lateral mid body of the spleen may represent a focal area of scarring. 3. Benign renal cortical cysts of the right kidney. 4. Small 3 mm gallbladder polyp. Gallbladder is otherwise sonographically normal. Kirby Trejo MD Brain MRI 11/10/17 0000 Signed Impressions: Service Date/Time: Friday, November 10, 2017 20:51 - CONCLUSION: The eighth of diminished attenuation involving the left frontoparietal junction on the patient's prior CT examination corresponds to acute infarction in addition to multiple other areas of new acute infarction bilaterally not present on the prior MRI dated 09/10/2017 and previously seen acute infarctions on the right side on that study have been evolved. Findings were discussed with the patient's nurse Chandan on 11/10/2017 9:19 PM. Fernanda Padilla MD Objective Remarks GENERAL: This is a well-nourished, well-developed patient, in no apparent distress. CARDIOVASCULAR: Regular rate and regular rhythm without murmurs, gallops, or rubs. RESPIRATORY: Clear to auscultation. Breath sounds equal bilaterally. No wheezes , rales, or rhonchi. GASTROINTESTINAL: Abdomen soft, non-tender, nondistended. Normal, active bowel sounds MUSCULOSKELETAL: Extremities without clubbing, cyanosis, or edema. NEURO: awake and alert. Medications and IVs Inpatient Medications Acetaminophen (Tylenol Supp) 650 mg ONCE ONCE RECTAL Last administered on 11/10at 11:41; Start 11/10/17 at 11:30; Stop 11/10/17 at 11:31; Status DC Ampicillin Sodium 2000 mg/Sodium Chloride 100 ml @ 400 mls/hr Q4H IV Last administered on 11/29/17at 07:16; Start 11/20/17 at 16:00 Aspirin (Aspirin Supp) 300 mg ONCE ONCE RECTAL Last administered on 11/10/17at 13:21; Start 11/10/17 at 13:00; Stop 11/10/17 at 13:02; Status DC Bisacodyl (Dulcolax Supp) 10 mg DAILY PRN RECTAL SEVERE CONSITIPATION; Start at 14:15 Cefepime HCl 2000 mg/Sodium Chloride 100 ml @ 200 mls/hr Q8H IV Last administered on 11/29/17at 04:43; Start 11/20/17 at 20:00 Diatrizoate Meglum/ Diatrizoate Sod ( Gastroview Liq) 18 ml ONCE ONCE PO Last administered on 11/16/17at 10:04; Start 11/16/17 at 09:15; Stop 11/16/17 at 09:16; Status DC Heparin Sodium (Porcine) (Heparin Inj) 5,000 units Q8H SQ Last administered on 11/29/17at 00:51; Start 11/10/17 at 14:15 Lactulose (Lactulose Liq) 30 ml DAILY PRN PO SEVERE CONSITIPATION; Start at 14:15 Magnesium Hydroxide (Milk Of Magnesia Liq) 30 ml Q12H PRN PO Mild constipation ; Start 11/10/17 at 14:15 Miscellaneous Information SPECIFIC LAB TO BE DRAWN:VANCOMYCIN TROUGH DATE TO... ONCE ONCE .XX Last administered on 11/12/17at 23:50; Start 11/12/17 at 23:45; Stop 11/12/17 at 23:46; Status DC Mupirocin (Bactroban Nasal 2% Oint) 1 applic BID NASAL Last administered on 11/26at 08:31; Start 11/10/17 at 21:00 Naloxone HCl (Narcan Inj) 0.4 mg UNSCH PRN IV PUSH SEE LABEL COMMENTS; Start at 14:15 Pharmacy Profile Note 0 ml @ 0 mls/hr UNSCH OTHER ; Start 11/11/17 at 15:30; Stop 11/15/17 at 08:10; Status DC Senna/Docusate Sodium (Arabella-Colace) 1 tab BID PO Last administered on 11/29/17at 00:51; Start 11/10/17 at 21:00 Sennosides (Senokot) 17.2 mg Q12H PRN PO Moderate constipation; Start 11/10/17 at 14:15 Sodium Chloride 2,000 ml @ 999 mls/hr Q2H1M IV Last administered on 11/10/17at 17:45; Start 11/10/17 at 17:45; Stop 11/10/17 at 19:45; Status DC Sodium Chloride (NS Flush) 2 ml BID IV FLUSH Last administered on 11/29/17at 07: 17; Start 11/10/17 at 21:00 Vancomycin HCl 750 mg/Sodium Chloride 257.5 ml @ 250 mls/hr ONCE ONCE IV Last administered on 11/10/17at 18:48; Start 11/10/17 at 16:00; Stop 11/10/17 at 17:01; Status DC Vancomycin HCl 1000 mg/Sodium Chloride 250 ml @ 250 mls/hr ONCE STAT IV Last administered on 11/10/17at 13:21; Start 11/10/17 at 10:36; Stop 11/10/17 at 11:35 ; Status DC Vancomycin HCl 1250 mg/Sodium Chloride 262.5 ml @ 250 mls/hr Q12H IV Last administered on 11/14/17at 19:49; Start 11/13/17 at 20:00; Stop 11/15/17 at 08:10 ; Status DC A/P Problem List: (1) Bacteremia ICD Code: R78.81 - Bacteremia (2) UTI (urinary tract infection) ICD Code: N39.0 - Urinary tract infection, site not specified (3) CVA (cerebral vascular accident) ICD Code: I63.9 - Cerebral infarction, unspecified (4) Cocaine abuse ICD Code: F14.10 - Cocaine abuse, uncomplicated (5) Aortic valve endocarditis ICD Code: I35.8 - Other nonrheumatic aortic valve disorders Assessment and Plan Aortic valve endocarditis pseudomonas bacteremia septic splenic/renal infarcts Continue on broad-spectrum antibiotics as per infectious disease Infectious disease ff. Continue antibiotics as per infectious disease. CT chest with pneumonia likely secondary to infected emboli. CMP today pending. 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 Steatosis on liver US -10/29 etoh. f/u PCP Swollen Ankle Xray negative for acute process Ultrasound negative for DVT. No sign of acute ankle infection. Continue to monitor. Pipe Straightener was consulted and following. Per hospital ward clerk recommend compress elevate and continue warm compress with continued ABXs since ankle is improving. Pipe Straightener stated that if there is any worsening of symptoms can reconsult. anemia- of chronic disease H/H stable- will monitor periodically. Social situation. Patient with history of IV drug use, noncompliance. Patient has requested to forego treatment. Per psychiatrist patient does not have the capacity to make medical decisions. DVT prophylaxis -Encourage ambulation. Discharge Planning on IV antibiotics. patient is a self-pay. Aurora Choi MD Nov 29, 2017 10:04
[2017-11-29 10:14] LABS: ALBUMIN 2.7 GM/DL (3.4-5.0); AST (GOT) 12 U/L (15-37); BICARBONATE 25.5 MEQ/L (21.0-32.0); BLOOD UREA NITROGEN 11 MG/DL (7-18); CALCIUM 8.8 MG/DL (8.5-10.1); CHLORIDE 108 MEQ/L (98-107); CREATININE 0.99 MG/DL (0.60-1.30); GLOMERULAR FILTRATION RATE 80 ML/MIN (>89); GLUCOSE,RANDOM 88 MG/DL (74-106); SODIUM (NA) 141 MEQ/L (136-145)
[2017-11-29 10:19] LABS: ALKALINE PHOSPHATASE 73 U/L (45-117); ALT (GPT) 14 U/L (12-78); TOTAL BILIRUBIN ADULT 0.3 MG/DL (0.2-1.0); TOTAL PROTEIN 7.5 GM/DL (6.4-8.2)
[2017-11-29 12:00] VITALS: BP 116/58; PULSE 79; RESP 16; TEMP 96.4; O2SAT 96
[2017-11-29 16:00] VITALS: BP 114/54; PULSE 81; RESP 14; TEMP 97.1; O2SAT 96
[2017-11-29 20:01] VITALS: BP 127/54; PULSE 89; RESP 18; TEMP 97.1; O2SAT 95
[2017-11-30 00:15] VITALS: BP 121/51; PULSE 80; RESP 18; TEMP 97.6; O2SAT 96
[2017-11-30] MEDS: AMPICILLIN INJ 2,000 MG in SODIUM CHLORIDE 0.9% INJ 100 ML IV SCH ×6 (00:29→20:28)
[2017-11-30] MEDS: CEFEPIME INJ 2,000 MG in SODIUM CHLORIDE 0.9% INJ 100 ML IV SCH ×3 (03:59→22:19)
[2017-11-30] MEDS: HEPARIN SODIUM - SQ 10,000 UNITS/ML VIAL SQ SCH ×3 (05:55→22:19)
[2017-11-30] MEDS: SODIUM CHLORIDE 0.9% FLUSH 10 ML FLUSH IV FLUSH SCH ×2 (07:26→20:28)
[2017-11-30] MEDS: DOCUSATE SODIUM 50 MG/SENNA 8.6 MG TAB PO SCH ×2 (07:27→20:28)
[2017-11-30] MEDS: MUPIROCIN 2% OINT 1 APPLIC/GM SYR NASAL SCH ×2 (07:27→20:28)
[2017-11-30 07:34] VITALS: BP 124/53; PULSE 81; RESP 18; TEMP 96.3; O2SAT 98
--- NOTE | 2017-11-30 11:00 | HHI.PR ---
Subjective Remarks in no acute distress. resting comfortably. no fever. no new complaints. Objective Vitals Vital Signs Date Time Temp Pulse Resp B/P (MAP) Pulse Ox O2 Delivery O2 Flow Rate FiO2 11/30/17 07:34 96.3 81 18 124/53 (76) 98 11/30/17 00:15 97.6 80 18 121/51 (74) 96 11/29/17 20:01 97.1 89 18 127/54 (78) 95 11/29/17 16:00 97.1 81 14 114/54 (74) 96 11/29/17 12:00 96.4 79 16 116/58 (77) 96 I/O 11/29/17 11/29/17 11/29/17 11/30/17 11/30/17 11/30/17 07:00 15:00 23:00 07:00 15:00 23:00 Intake Total 200 ml 240 ml 560 ml 680 ml Output Total 350 ml Balance 200 ml 240 ml 210 ml 680 ml Intake Oral 200 ml 240 ml 360 ml 480 ml IV Total 200 ml 200 ml Output Urine Total 350 ml # Voids 2 3 2 2 # Bowel Movements 1 0 0 Result Diagram: 11/29/17 0844 11/29/17 0844 Imaging Last Impressions Lower Extremity Ultrasound 11/19/17 0000 Signed Impressions: Service Date/Time: Sunday, November 19, 2017 08:30 - CONCLUSION: Complex fluid collection in the posterior medial soft tissues measuring up to 1.2 cm, correlating with the findings seen on recent MRI. Seth Verma MD Ankle MRI 11/17/17 0000 Signed Impressions: Service Date/Time: Friday, November 17, 2017 21:51 - CONCLUSION: 1. Normal marrow edema with no evidence of osteomyelitis. 2. Soft tissue edema along the medial ankle with 1.2 cm focal area of abnormality which could represent a small abscess or cystic structure. This did not enhance. 3. Mild tenosynovitis involving the flexor digitorum longus tendon, tibialis posterior tendon and peroneus longus tendon Jerad Santos MD Chest CT 11/16/17 0000 Signed Impressions: Service Date/Time: Thursday, November 16, 2017 12:55 - CONCLUSION: 1. Trace right and small left pleural effusions with associated airspace consolidation at the lung bases. Differential considerations include aspiration or pneumonia with reactive effusions versus pleural effusions with compressive atelectasis. 2. Partially imaged right shaped defects in the azygous portions of the spleen which may reflect splenic infarcts. 3. Eccentric aortic valve calcifications consistent with prior history of aortic valve endocarditis. Russell Jose MD Abdomen/Pelvis CT 11/16/17 0000 Signed Impressions: Service Date/Time: Thursday, November 16, 2017 12:57 - CONCLUSION: 1. Stable probable embolic splenic and renal infarcts. 2. No acute abnormality or significant interval change. Specifically, no evidence for drainable abscess in the abdomen. Russell Jose MD Ankle X-Ray 11/14/17 0000 Signed Impressions: Service Date/Time: Tuesday, November 14, 2017 14:00 - CONCLUSION: Unremarkable examination of the right ankle. Valeriy Chapa MD Head CT 11/10/17 1036 Signed Impressions: Service Date/Time: Friday, November 10, 2017 12:16 - CONCLUSION: There is abnormal low density, likely representing cytotoxic edema, in the left frontal lobe. This very likely is related to a recent ischemic event. Reji Dasilva MD Chest X-Ray 11/10/17 1036 Signed Impressions: Service Date/Time: Friday, November 10, 2017 10:54 - CONCLUSION: No acute cardiopulmonary process. Kirby Trejo MD Liver Ultrasound 11/10/17 0000 Signed Impressions: Service Date/Time: Friday, November 10, 2017 14:47 - CONCLUSION: 1. Liver and spleen are both enlarged with multiple diffuse hepatic fatty infiltration. 2. Linear echogenic area within the lateral mid body of the spleen may represent a focal area of scarring. 3. Benign renal cortical cysts of the right kidney. 4. Small 3 mm gallbladder polyp. Gallbladder is otherwise sonographically normal. Kirby Trejo MD Brain MRI 11/10/17 0000 Signed Impressions: Service Date/Time: Friday, November 10, 2017 20:51 - CONCLUSION: The eighth of diminished attenuation involving the left frontoparietal junction on the patient's prior CT examination corresponds to acute infarction in addition to multiple other areas of new acute infarction bilaterally not present on the prior MRI dated 09/10/2017 and previously seen acute infarctions on the right side on that study have been evolved. Findings were discussed with the patient's nurse Chandan on 11/10/2017 9:19 PM. Fernanda Padilla MD Objective Remarks GENERAL: This is a well-nourished, well-developed patient, in no apparent distress. CARDIOVASCULAR: Regular rate and regular rhythm without murmurs, gallops, or rubs. RESPIRATORY: Clear to auscultation. Breath sounds equal bilaterally. No wheezes , rales, or rhonchi. GASTROINTESTINAL: Abdomen soft, non-tender, nondistended. Normal, active bowel sounds MUSCULOSKELETAL: Extremities without clubbing, cyanosis, or edema. NEURO: awake and alert. Medications and IVs Inpatient Medications Acetaminophen (Tylenol Supp) 650 mg ONCE ONCE RECTAL Last administered on 11/10at 11:41; Start 11/10/17 at 11:30; Stop 11/10/17 at 11:31; Status DC Ampicillin Sodium 2000 mg/Sodium Chloride 100 ml @ 400 mls/hr Q4H IV Last administered on 11/30/17at 07:26; Start 11/20/17 at 16:00 Aspirin (Aspirin Supp) 300 mg ONCE ONCE RECTAL Last administered on 11/10/17at 13:21; Start 11/10/17 at 13:00; Stop 11/10/17 at 13:02; Status DC Bisacodyl (Dulcolax Supp) 10 mg DAILY PRN RECTAL SEVERE CONSITIPATION; Start at 14:15 Cefepime HCl 2000 mg/Sodium Chloride 100 ml @ 200 mls/hr Q8H IV Last administered on 11/30/17at 03:59; Start 11/20/17 at 20:00 Diatrizoate Meglum/ Diatrizoate Sod ( Gastroview Liq) 18 ml ONCE ONCE PO Last administered on 11/16/17at 10:04; Start 11/16/17 at 09:15; Stop 11/16/17 at 09:16; Status DC Heparin Sodium (Porcine) (Heparin Inj) 5,000 units Q8H SQ Last administered on 11/30/17at 05:55; Start 11/10/17 at 14:15 Lactulose (Lactulose Liq) 30 ml DAILY PRN PO SEVERE CONSITIPATION; Start at 14:15 Magnesium Hydroxide (Milk Of Magnesia Liq) 30 ml Q12H PRN PO Mild constipation ; Start 11/10/17 at 14:15 Miscellaneous Information SPECIFIC LAB TO BE DRAWN:VANCOMYCIN TROUGH DATE TO... ONCE ONCE .XX Last administered on 11/12/17at 23:50; Start 11/12/17 at 23:45; Stop 11/12/17 at 23:46; Status DC Mupirocin (Bactroban Nasal 2% Oint) 1 applic BID NASAL Last administered on 11/26at 08:31; Start 11/10/17 at 21:00 Naloxone HCl (Narcan Inj) 0.4 mg UNSCH PRN IV PUSH SEE LABEL COMMENTS; Start at 14:15 Pharmacy Profile Note 0 ml @ 0 mls/hr UNSCH OTHER ; Start 11/11/17 at 15:30; Stop 11/15/17 at 08:10; Status DC Senna/Docusate Sodium (Arabella-Colace) 1 tab BID PO Last administered on 11/29/17at 19:42; Start 11/10/17 at 21:00 Sennosides (Senokot) 17.2 mg Q12H PRN PO Moderate constipation; Start 11/10/17 at 14:15 Sodium Chloride 2,000 ml @ 999 mls/hr Q2H1M IV Last administered on 11/10/17at 17:45; Start 11/10/17 at 17:45; Stop 11/10/17 at 19:45; Status DC Sodium Chloride (NS Flush) 2 ml BID IV FLUSH Last administered on 11/30/17at 07: 26; Start 11/10/17 at 21:00 Vancomycin HCl 750 mg/Sodium Chloride 257.5 ml @ 250 mls/hr ONCE ONCE IV Last administered on 11/10/17at 18:48; Start 11/10/17 at 16:00; Stop 11/10/17 at 17:01; Status DC Vancomycin HCl 1000 mg/Sodium Chloride 250 ml @ 250 mls/hr ONCE STAT IV Last administered on 11/10/17at 13:21; Start 11/10/17 at 10:36; Stop 11/10/17 at 11:35 ; Status DC Vancomycin HCl 1250 mg/Sodium Chloride 262.5 ml @ 250 mls/hr Q12H IV Last administered on 2/18/18at 19:49; Start 11/13/17 at 20:00; Stop 11/15/17 at 08:10 ; Status DC A/P Problem List: (1) Bacteremia ICD Code: R78.81 - Bacteremia (2) UTI (urinary tract infection) ICD Code: N39.0 - Urinary tract infection, site not specified (3) CVA (cerebral vascular accident) ICD Code: I63.9 - Cerebral infarction, unspecified (4) Cocaine abuse ICD Code: F14.10 - Cocaine abuse, uncomplicated (5) Aortic valve endocarditis ICD Code: I35.8 - Other nonrheumatic aortic valve disorders Assessment and Plan Aortic valve endocarditis pseudomonas bacteremia septic splenic/renal infarcts Continue on IV antibiotics as per infectious disease Infectious disease ff. CT chest with pneumonia likely secondary to infected emboli. 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 Steatosis on liver US -10/29 etoh. f/u PCP Swollen Ankle Xray negative for acute process Ultrasound negative for DVT. No sign of acute ankle infection. Continue to monitor. Laser Technician was consulted and following. Per mechanical engineering teacher recommend compress elevate and continue warm compress with continued ABXs since ankle is improving. Laser Technician stated that if there is any worsening of symptoms can reconsult. anemia- of chronic disease H/H stable- will monitor periodically. Social situation. Patient with history of IV drug use, noncompliance. Patient has requested to forego treatment. Per psychiatrist patient does not have the capacity to make medical decisions. DVT prophylaxis -Encourage ambulation. Discharge Planning on IV antibiotics. patient is a self-pay. Aurora Choi MD Nov 30, 2017 11:00
[2017-11-30 11:36] VITALS: BP 126/55; PULSE 89; RESP 18; TEMP 98.2; O2SAT 97
--- NOTE | 2017-11-30 15:13 | HHI.HCPN ---
Reason for visit a. To assist with evaluation and management of symptoms including: confusion b. To assist medical decision maker(s) with: better understanding of current medical conditions; weighing benefits/burdens of medical treatment options; making medical treatment decisions. Subjective/Interval History Patient on my visit was comfortable, watching TV. No complaints. . Family/friend interactions Spoke with pt's mother Bhargavi, gave updates, answered questions about labs. Goals of care continue to be to continue medical care short of resucitation. She reaffimrs DNR/DNI, and amenable to sign community DNR. Advance Directives Living Will: Never completed Health Care Surrogate: Copy in medical record Durable Power of Ux Developer Designer: Never completed Objective Vital Signs Date Time Temp Pulse Resp B/P (MAP) Pulse Ox O2 Delivery O2 Flow Rate FiO2 11/30/17 11:36 98.2 89 18 126/55 (78) 97 11/30/17 07:34 96.3 81 18 124/53 (76) 98 11/30/17 00:15 97.6 80 18 121/51 (74) 96 11/29/17 20:01 97.1 89 18 127/54 (78) 95 11/29/17 16:00 97.1 81 14 114/54 (74) 96 Intake & Output 11/30/17 11/30/17 07:00 19:00 Intake Total 1240 ml Output Total 350 ml Balance 890 ml Intake Oral 840 ml IV Total 400 ml Output Urine Total 350 ml # Voids 4 # Bowel Movements 0 Physical Exam CONSTITUTIONAL/GENERAL: This is an adequately nourished patient,irritable at times, disheveled. TUBES/LINES/DRAINS:PIV UE. SKIN: No jaundice, rashes, or lesions. No wounds seen anteriorly. Skin warm/dry HEAD: Atraumatic. Normocephalic. CARDIOVASCULAR: Regular rate and rhythm without murmur. Peripheral pulses symmetric.+ slight edema right foot/ankle RESPIRATORY/CHEST: Symmetric, unlabored respirations. Clear to auscultation. Breath sounds equal bilaterally. GASTROINTESTINAL: Abdomen soft, non-tender, nondistended. No palpable masses. No guarding. Bowel sounds present. MUSCULOSKELETAL: Extremities without clubbing, cyanosis. +edema Rt ankle/foot improved. No mottling or clubbing. NEUROLOGICAL: Awake and alert.Oriented x1-2. +. Irritable. Follows commands. Moves all 4 extremities. PSYCHIATRIC: Irritable. no apparent hallucinations or other psychotic thought process. Diagnostic Tests Laboratory Laboratory Tests Test 11/29/17 08:44 White Blood Count 7.6 TH/MM3 (4.0-11.0) Red Blood Count 3.75 MIL/MM3 (4.50-5.90) Hemoglobin 10.6 GM/DL (13.0-17.0) Hematocrit 30.9 % (39.0-51.0) Mean Corpuscular Volume 82.4 FL (80.0-100.0) Mean Corpuscular Hemoglobin 28.4 PG (27.0-34.0) Mean Corpuscular Hemoglobin Concent 34.5 % (32.0-36.0) Red Cell Distribution Width 16.1 % (11.6-17.2) Platelet Count 312 TH/MM3 (150-450) Mean Platelet Volume 7.5 FL (7.0-11.0) Neutrophils (%) (Auto) 63.3 % (16.0-70.0) Lymphocytes (%) (Auto) 25.7 % (9.0-44.0) Monocytes (%) (Auto) 7.1 % (0.0-8.0) Eosinophils (%) (Auto) 2.8 % (0.0-4.0) Basophils (%) (Auto) 1.1 % (0.0-2.0) Neutrophils # (Auto) 4.8 TH/MM3 (1.8-7.7) Lymphocytes # (Auto) 1.9 TH/MM3 (1.0-4.8) Monocytes # (Auto) 0.5 TH/MM3 (0-0.9) Eosinophils # (Auto) 0.2 TH/MM3 (0-0.4) Basophils # (Auto) 0.1 TH/MM3 (0-0.2) CBC Comment DIFF FINAL Differential Comment Blood Urea Nitrogen 11 MG/DL (7-18) Creatinine 0.99 MG/DL (0.60-1.30) Random Glucose 88 MG/DL (74-106) Total Protein 7.5 GM/DL (6.4-8.2) Albumin 2.7 GM/DL (3.4-5.0) Calcium Level 8.8 MG/DL (8.5-10.1) Alkaline Phosphatase 73 U/L (45-117) Aspartate Amino Transf (AST/SGOT) 12 U/L (15-37) Alanine Aminotransferase (ALT/SGPT) 14 U/L (12-78) Total Bilirubin 0.3 MG/DL (0.2-1.0) Sodium Level 141 MEQ/L (136-145) Potassium Level 4.0 MEQ/L (3.5-5.1) Chloride Level 108 MEQ/L (98-107) Carbon Dioxide Level 25.5 MEQ/L (21.0-32.0) Anion Gap 8 MEQ/L (5-15) Estimat Glomerular Filtration Rate 80 ML/MIN (>89) Result Diagram: 11/29/1744 11/29/1744 Imaging Last Impressions Lower Extremity Ultrasound 11/19/17 0000 Signed Impressions: Service Date/Time: Sunday, November 19, 2017 08:30 - CONCLUSION: Complex fluid collection in the posterior medial soft tissues measuring up to 1.2 cm, correlating with the findings seen on recent MRI. Seth Verma MD Ankle MRI 11/17/17 0000 Signed Impressions: Service Date/Time: Friday, November 17, 2017 21:51 - CONCLUSION: 1. Normal marrow edema with no evidence of osteomyelitis. 2. Soft tissue edema along the medial ankle with 1.2 cm focal area of abnormality which could represent a small abscess or cystic structure. This did not enhance. 3. Mild tenosynovitis involving the flexor digitorum longus tendon, tibialis posterior tendon and peroneus longus tendon Jerad Santos MD Chest CT 11/16/17 0000 Signed Impressions: Service Date/Time: Thursday, November 16, 2017 12:55 - CONCLUSION: 1. Trace right and small left pleural effusions with associated airspace consolidation at the lung bases. Differential considerations include aspiration or pneumonia with reactive effusions versus pleural effusions with compressive atelectasis. 2. Partially imaged right shaped defects in the azygous portions of the spleen which may reflect splenic infarcts. 3. Eccentric aortic valve calcifications consistent with prior history of aortic valve endocarditis. Russell Jose MD Abdomen/Pelvis CT 11/16/17 0000 Signed Impressions: Service Date/Time: Thursday, November 16, 2017 12:57 - CONCLUSION: 1. Stable probable embolic splenic and renal infarcts. 2. No acute abnormality or significant interval change. Specifically, no evidence for drainable abscess in the abdomen. Russell Jose MD Ankle X-Ray 11/14/17 0000 Signed Impressions: Service Date/Time: Tuesday, November 14, 2017 14:00 - CONCLUSION: Unremarkable examination of the right ankle. Valeriy Chapa MD Head CT 11/10/17 1036 Signed Impressions: Service Date/Time: Friday, November 10, 2017 12:16 - CONCLUSION: There is abnormal low density, likely representing cytotoxic edema, in the left frontal lobe. This very likely is related to a recent ischemic event. Reji Dasilva MD Chest X-Ray 11/10/17 1036 Signed Impressions: Service Date/Time: Friday, November 10, 2017 10:54 - CONCLUSION: No acute cardiopulmonary process. Kirby Trejo MD Liver Ultrasound 11/10/17 0000 Signed Impressions: Service Date/Time: Friday, November 10, 2017 14:47 - CONCLUSION: 1. Liver and spleen are both enlarged with multiple diffuse hepatic fatty infiltration. 2. Linear echogenic area within the lateral mid body of the spleen may represent a focal area of scarring. 3. Benign renal cortical cysts of the right kidney. 4. Small 3 mm gallbladder polyp. Gallbladder is otherwise sonographically normal. Kirby Trejo MD Brain MRI 11/10/17 0000 Signed Impressions: Service Date/Time: Friday, November 10, 2017 20:51 - CONCLUSION: The eighth of diminished attenuation involving the left frontoparietal junction on the patient's prior CT examination corresponds to acute infarction in addition to multiple other areas of new acute infarction bilaterally not present on the prior MRI dated 09/10/2017 and previously seen acute infarctions on the right side on that study have been evolved. Findings were discussed with the patient's nurse Chandan on 11/10/2017 9:19 PM. Fernanda Padilla MD Assessment and Plan Disease Oriented Problem List: (1) Severe sepsis (2) CVA (cerebral vascular accident) (3) Cocaine abuse (4) Aortic valve endocarditis (5) Bacteremia Symptom Scale: (1) Confusion (2) Pain Pertinent Non-Medical Issues Psychosocial: Spiritual: Legal:Pt admitted w confusion, aphasia. S/p recent CVA, + new areas infarct. Mental status fluctuates. Not clear he has full insight and ability to make decisions, though he may be able to participate in shared decision making. Psych eval pending. Mother is designated HCS. Ethical issues impacting care:no ethical issues identified Important Contacts Mother Bhargavi Wallis [phone] daughter Agnes [phone] . Prognosis This pt was admitted for AMS, fever. He has findings of new (septic emboli) CVA , endocarditis, ongoing IV tx per ID. Pt remains very high risk for ongoing complications secondary to infectious process, even with ongoing aggressive treatment. . Code Status: No Code Plan * Legal decision maker:Pt admitted w confusion, aphasia. S/p recent CVA, + new areas infarct. Mental status fluctuates. Not clear he has full insight and ability to make decision. Psych eval completed, pt not capacitated to make his decisions at this time. Mother is designated HCS. . * Goals: Goals remain aggressive short of resuscitation. Pt mother does not feel he has good understanding of his conditions/needed treatments. She does not feel he will be able to care for himself. She is not able to be a primary caregiver for him, and is not certain that his daughter will be able to either, as she works full time babysitter and has a toddler. Pt mother does wish for current tx to be maximized to try to help pt improve, feels he will likely need superintendent terminal placement for his care needs. She is amenable to sign community DNR. * CODE STATUS: DNR * SYMPTOMS: --confusion/AMS- recent CVA, + new embolic CVA this admission. mental status fluctuates. Hx drug abuse, "none recently". --pain- Pain to RLE , imaging negative, exam + edema but otherwise benign; denies pain on my visit. * Palliative care will continue to follow during hospital course as condition evolves, to assist patient/decision-maker with understanding of medical conditions, weighing benefits/burdens of treatment options, for clarification of goals of treatment. Additionally will assist with any symptoms of palliative concern . Attestation To help prompt me to consider important information that might be impacting today's encounter and assessment, information from prior notes written by myself or my colleagues may have been "brought forward" into today's note. My signature on this note, however, is an attestation that I personally performed the exam, history, and/or decision-making noted today, and, unless otherwise indicated, the interactions with patient, family, and staff as well as the review of records all occurred today. I also attest that the listed assessment and stated plan reflect my best clinical judgment today based on the combination of historical information, prior notes, and today's exam/ interactions. When time spent is documented, it refers only to time spent today by the signer, or if indicated, combined time spent today by collaborating physician/nurse practitioner. Peña Jaquez MD Nov 30, 2017 15:13
[2017-11-30 15:44] VITALS: BP 115/50; PULSE 79; RESP 18; TEMP 98; O2SAT 97
[2017-11-30 20:30] VITALS: BP 108/46; PULSE 71; RESP 18; TEMP 96.6; O2SAT 97
[2017-11-30 23:40] VITALS: BP 130/53; PULSE 84; RESP 17; TEMP 97.9; O2SAT 98
[2017-12-01] MEDS: AMPICILLIN INJ 2,000 MG in SODIUM CHLORIDE 0.9% INJ 100 ML IV SCH ×6 (00:57→20:50)
[2017-12-01] MEDS: HEPARIN SODIUM - SQ 10,000 UNITS/ML VIAL SQ SCH ×3 (05:15→22:15)
[2017-12-01] MEDS: CEFEPIME INJ 2,000 MG in SODIUM CHLORIDE 0.9% INJ 100 ML IV SCH ×3 (05:15→20:50)
[2017-12-01 07:25] VITALS: BP 110/52; PULSE 81; RESP 18; TEMP 96; O2SAT 100
[2017-12-01] MEDS: DOCUSATE SODIUM 50 MG/SENNA 8.6 MG TAB PO SCH ×2 (08:44→21:00)
[2017-12-01] MEDS: MUPIROCIN 2% OINT 1 APPLIC/GM SYR NASAL SCH ×2 (08:44→20:50)
[2017-12-01] MEDS: SODIUM CHLORIDE 0.9% FLUSH 10 ML FLUSH IV FLUSH SCH ×2 (08:44→20:51)
[2017-12-01 12:00] VITALS: BP 107/50; PULSE 82; RESP 18; TEMP 95.4; O2SAT 97
--- NOTE | 2017-12-01 13:13 | HHI.PR ---
Subjective Remarks in no distress. resting comfortably. no new complaints. remains afebrile. Objective Vitals Vital Signs Date Time Temp Pulse Resp B/P (MAP) Pulse Ox O2 Delivery O2 Flow Rate FiO2 12/01/17 12:00 95.4 82 18 107/50 (69) 97 12/01/17 07:25 96.0 81 18 110/52 (71) 100 11/30/17 23:40 97.9 84 17 130/53 (78) 98 11/30/17 20:30 96.6 71 18 108/46 (66) 97 11/30/17 15:44 98.0 79 18 115/50 (71) 97 I/O 11/30/17 11/30/17 11/30/17 12/01/17 12/01/17 12/01/17 07:00 15:00 23:00 07:00 15:00 23:00 Intake Total 680 ml 960 ml 680 ml 660 ml Balance 680 ml 960 ml 680 ml 660 ml Intake Oral 480 ml 960 ml 480 ml 360 ml IV Total 200 ml 200 ml 300 ml # Voids 2 3 2 1 # Bowel Movements 0 0 0 0 Result Diagram: 11/29/17 0844 11/29/17 0844 Imaging Last Impressions Lower Extremity Ultrasound 11/19/17 0000 Signed Impressions: Service Date/Time: Sunday, November 19, 2017 08:30 - CONCLUSION: Complex fluid collection in the posterior medial soft tissues measuring up to 1.2 cm, correlating with the findings seen on recent MRI. Seth Verma MD Ankle MRI 11/17/17 0000 Signed Impressions: Service Date/Time: Friday, November 17, 2017 21:51 - CONCLUSION: 1. Normal marrow edema with no evidence of osteomyelitis. 2. Soft tissue edema along the medial ankle with 1.2 cm focal area of abnormality which could represent a small abscess or cystic structure. This did not enhance. 3. Mild tenosynovitis involving the flexor digitorum longus tendon, tibialis posterior tendon and peroneus longus tendon Jerad Santos MD Chest CT 11/16/17 0000 Signed Impressions: Service Date/Time: Thursday, November 16, 2017 12:55 - CONCLUSION: 1. Trace right and small left pleural effusions with associated airspace consolidation at the lung bases. Differential considerations include aspiration or pneumonia with reactive effusions versus pleural effusions with compressive atelectasis. 2. Partially imaged right shaped defects in the azygous portions of the spleen which may reflect splenic infarcts. 3. Eccentric aortic valve calcifications consistent with prior history of aortic valve endocarditis. Russell Jose MD Abdomen/Pelvis CT 11/16/17 0000 Signed Impressions: Service Date/Time: Thursday, November 16, 2017 12:57 - CONCLUSION: 1. Stable probable embolic splenic and renal infarcts. 2. No acute abnormality or significant interval change. Specifically, no evidence for drainable abscess in the abdomen. Russell Jose MD Ankle X-Ray 11/14/17 0000 Signed Impressions: Service Date/Time: Tuesday, November 14, 2017 14:00 - CONCLUSION: Unremarkable examination of the right ankle. Valeriy Chapa MD Head CT 11/10/17 1036 Signed Impressions: Service Date/Time: Friday, November 10, 2017 12:16 - CONCLUSION: There is abnormal low density, likely representing cytotoxic edema, in the left frontal lobe. This very likely is related to a recent ischemic event. Reji Dasilva MD Chest X-Ray 11/10/17 1036 Signed Impressions: Service Date/Time: Friday, November 10, 2017 10:54 - CONCLUSION: No acute cardiopulmonary process. Kirby Trejo MD Liver Ultrasound 11/10/17 0000 Signed Impressions: Service Date/Time: Friday, November 10, 2017 14:47 - CONCLUSION: 1. Liver and spleen are both enlarged with multiple diffuse hepatic fatty infiltration. 2. Linear echogenic area within the lateral mid body of the spleen may represent a focal area of scarring. 3. Benign renal cortical cysts of the right kidney. 4. Small 3 mm gallbladder polyp. Gallbladder is otherwise sonographically normal. Kirby Trejo MD Brain MRI 11/10/17 0000 Signed Impressions: Service Date/Time: Friday, November 10, 2017 20:51 - CONCLUSION: The eighth of diminished attenuation involving the left frontoparietal junction on the patient's prior CT examination corresponds to acute infarction in addition to multiple other areas of new acute infarction bilaterally not present on the prior MRI dated 09/10/2017 and previously seen acute infarctions on the right side on that study have been evolved. Findings were discussed with the patient's nurse Chandan on 11/10/2017 9:19 PM. Fernanda Padilla MD Objective Remarks GENERAL: This is a well-nourished, well-developed patient, in no apparent distress. CARDIOVASCULAR: Regular rate and regular rhythm without murmurs, gallops, or rubs. RESPIRATORY: Clear to auscultation. Breath sounds equal bilaterally. No wheezes , rales, or rhonchi. GASTROINTESTINAL: Abdomen soft, non-tender, nondistended. Normal, active bowel sounds MUSCULOSKELETAL: Extremities without clubbing, cyanosis, or edema. NEURO: awake and alert. Medications and IVs Inpatient Medications Acetaminophen (Tylenol Supp) 650 mg ONCE ONCE RECTAL Last administered on 11/10at 11:41; Start 11/10/17 at 11:30; Stop 11/10/17 at 11:31; Status DC Ampicillin Sodium 2000 mg/Sodium Chloride 100 ml @ 400 mls/hr Q4H IV Last administered on 12/01/17at 08:44; Start 11/20/17 at 16:00 Aspirin (Aspirin Supp) 300 mg ONCE ONCE RECTAL Last administered on 11/10/17at 13:21; Start 11/10/17 at 13:00; Stop 11/10/17 at 13:02; Status DC Bisacodyl (Dulcolax Supp) 10 mg DAILY PRN RECTAL SEVERE CONSITIPATION; Start at 14:15 Cefepime HCl 2000 mg/Sodium Chloride 100 ml @ 200 mls/hr Q8H IV Last administered on 12/01/17at 12:14; Start 11/20/17 at 20:00 Diatrizoate Meglum/ Diatrizoate Sod ( Gastroview Liq) 18 ml ONCE ONCE PO Last administered on 11/16/17at 10:04; Start 11/16/17 at 09:15; Stop 11/16/17 at 09:16; Status DC Heparin Sodium (Porcine) (Heparin Inj) 5,000 units Q8H SQ Last administered on 12/01/17at 05:15; Start 11/10/17 at 14:15 Lactulose (Lactulose Liq) 30 ml DAILY PRN PO SEVERE CONSITIPATION; Start at 14:15 Magnesium Hydroxide (Milk Of Magnesia Liq) 30 ml Q12H PRN PO Mild constipation ; Start 11/10/17 at 14:15 Miscellaneous Information SPECIFIC LAB TO BE DRAWN:VANCOMYCIN TROUGH DATE TO... ONCE ONCE .XX Last administered on 11/12/17at 23:50; Start 11/12/17 at 23:45; Stop 11/12/17 at 23:46; Status DC Mupirocin (Bactroban Nasal 2% Oint) 1 applic BID NASAL Last administered on 11/26at 08:31; Start 11/10/17 at 21:00 Naloxone HCl (Narcan Inj) 0.4 mg UNSCH PRN IV PUSH SEE LABEL COMMENTS; Start at 14:15 Pharmacy Profile Note 0 ml @ 0 mls/hr UNSCH OTHER ; Start 11/11/17 at 15:30; Stop 11/15/17 at 08:10; Status DC Senna/Docusate Sodium (Arabella-Colace) 1 tab BID PO Last administered on 11/30/17at 20:28; Start 11/10/17 at 21:00 Sennosides (Senokot) 17.2 mg Q12H PRN PO Moderate constipation; Start 11/10/17 at 14:15 Sodium Chloride 2,000 ml @ 999 mls/hr Q2H1M IV Last administered on 11/10/17at 17:45; Start 11/10/17 at 17:45; Stop 11/10/17 at 19:45; Status DC Sodium Chloride (NS Flush) 2 ml BID IV FLUSH Last administered on 11/30/17at 20: 28; Start 11/10/17 at 21:00 Vancomycin HCl 750 mg/Sodium Chloride 257.5 ml @ 250 mls/hr ONCE ONCE IV Last administered on 11/10/17at 18:48; Start 11/10/17 at 16:00; Stop 11/10/17 at 17:01; Status DC Vancomycin HCl 1000 mg/Sodium Chloride 250 ml @ 250 mls/hr ONCE STAT IV Last administered on 11/10/17at 13:21; Start 11/10/17 at 10:36; Stop 11/10/17 at 11:35 ; Status DC Vancomycin HCl 1250 mg/Sodium Chloride 262.5 ml @ 250 mls/hr Q12H IV Last administered on 11/14/17at 19:49; Start 11/13/17 at 20:00; Stop 11/15/17 at 08:10 ; Status DC A/P Problem List: (1) Bacteremia ICD Code: R78.81 - Bacteremia (2) UTI (urinary tract infection) ICD Code: N39.0 - Urinary tract infection, site not specified (3) CVA (cerebral vascular accident) ICD Code: I63.9 - Cerebral infarction, unspecified (4) Cocaine abuse ICD Code: F14.10 - Cocaine abuse, uncomplicated (5) Aortic valve endocarditis ICD Code: I35.8 - Other nonrheumatic aortic valve disorders Assessment and Plan Aortic valve endocarditis pseudomonas bacteremia septic splenic/renal infarcts Continue on IV antibiotics as per infectious disease Infectious disease ff. CT chest with pneumonia likely secondary to infected emboli. 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 Steatosis on liver US -10/29 etoh. f/u PCP Swollen Ankle Xray negative for acute process Ultrasound negative for DVT. No sign of acute ankle infection. Continue to monitor. Fabric Worker was consulted and following. Per toy assembler wood recommend compress elevate and continue warm compress with continued ABXs since ankle is improving. Fabric Worker stated that if there is any worsening of symptoms can reconsult. anemia- of chronic disease H/H stable- will monitor periodically. Social situation. Patient with history of IV drug use, noncompliance. Patient has requested to forego treatment. Per psychiatrist patient does not have the capacity to make medical decisions. DVT prophylaxis -Encourage ambulation. Discharge Planning on IV antibiotics. patient is a self-pay. Aurora Choi MD Dec 01, 2017 13:13
[2017-12-01 16:00] VITALS: BP 124/50; PULSE 84; RESP 18; TEMP 97.7; O2SAT 98
[2017-12-01 20:51] VITALS: BP 121/54; PULSE 85; RESP 17; TEMP 97.2; O2SAT 96
[2017-12-02] VITALS: BP 118/57; PULSE 88; RESP 19; TEMP 97; O2SAT 95
[2017-12-02] MEDS: AMPICILLIN INJ 2,000 MG in SODIUM CHLORIDE 0.9% INJ 100 ML IV SCH ×7 (05:03→20:57)
[2017-12-02] MEDS: CEFEPIME INJ 2,000 MG in SODIUM CHLORIDE 0.9% INJ 100 ML IV SCH ×3 (05:27→20:57)
[2017-12-02] MEDS: HEPARIN SODIUM - SQ 10,000 UNITS/ML VIAL SQ SCH ×3 (05:38→22:15)
[2017-12-02 07:34] VITALS: BP 114/50; PULSE 81; RESP 18; TEMP 96.5; O2SAT 97
[2017-12-02] MEDS: MUPIROCIN 2% OINT 1 APPLIC/GM SYR NASAL SCH ×2 (09:00→20:58)
[2017-12-02] MEDS: DOCUSATE SODIUM 50 MG/SENNA 8.6 MG TAB PO SCH ×2 (09:57→20:58)
[2017-12-02] MEDS: SODIUM CHLORIDE 0.9% FLUSH 10 ML FLUSH IV FLUSH SCH ×2 (09:57→20:58)
--- NOTE | 2017-12-02 11:30 | HHI.PR ---
Subjective Remarks in no acute distress. resting comfortably. no fever or new complaints. Objective Vitals Vital Signs Date Time Temp Pulse Resp B/P (MAP) Pulse Ox O2 Delivery O2 Flow Rate FiO2 12/02/17 07:34 96.5 81 18 114/50 (71) 97 12/02/17 00:00 97.0 88 19 118/57 (77) 95 12/01/17 20:51 97.2 85 17 121/54 (76) 96 12/01/17 16:00 97.7 84 18 124/50 (74) 98 12/01/17 12:00 95.4 82 18 107/50 (69) 97 I/O 12/01/17 12/01/17 12/01/17 12/02/17 12/02/17 12/02/17 07:00 15:00 23:00 07:00 15:00 23:00 Intake Total 660 ml 960 ml 360 ml 520 ml Output Total 500 ml Balance 660 ml 960 ml 360 ml 20 ml Intake Oral 360 ml 960 ml 360 ml 520 ml IV Total 300 ml Output Urine Total 500 ml # Voids 1 2 3 # Bowel Movements 0 1 0 0 Result Diagram: 11/29/17 0844 11/29/17 0844 Imaging Last Impressions Lower Extremity Ultrasound 11/19/17 0000 Signed Impressions: Service Date/Time: Sunday, November 19, 2017 08:30 - CONCLUSION: Complex fluid collection in the posterior medial soft tissues measuring up to 1.2 cm, correlating with the findings seen on recent MRI. Seth Verma MD Ankle MRI 11/17/17 0000 Signed Impressions: Service Date/Time: Friday, November 17, 2017 21:51 - CONCLUSION: 1. Normal marrow edema with no evidence of osteomyelitis. 2. Soft tissue edema along the medial ankle with 1.2 cm focal area of abnormality which could represent a small abscess or cystic structure. This did not enhance. 3. Mild tenosynovitis involving the flexor digitorum longus tendon, tibialis posterior tendon and peroneus longus tendon Jerad Santos MD Chest CT 11/16/17 0000 Signed Impressions: Service Date/Time: Thursday, November 16, 2017 12:55 - CONCLUSION: 1. Trace right and small left pleural effusions with associated airspace consolidation at the lung bases. Differential considerations include aspiration or pneumonia with reactive effusions versus pleural effusions with compressive atelectasis. 2. Partially imaged right shaped defects in the azygous portions of the spleen which may reflect splenic infarcts. 3. Eccentric aortic valve calcifications consistent with prior history of aortic valve endocarditis. Russell Jose MD Abdomen/Pelvis CT 11/16/17 0000 Signed Impressions: Service Date/Time: Thursday, November 16, 2017 12:57 - CONCLUSION: 1. Stable probable embolic splenic and renal infarcts. 2. No acute abnormality or significant interval change. Specifically, no evidence for drainable abscess in the abdomen. Russell Jose MD Ankle X-Ray 11/14/17 0000 Signed Impressions: Service Date/Time: Tuesday, November 14, 2017 14:00 - CONCLUSION: Unremarkable examination of the right ankle. Valeriy Chapa MD Head CT 11/10/17 1036 Signed Impressions: Service Date/Time: Friday, November 10, 2017 12:16 - CONCLUSION: There is abnormal low density, likely representing cytotoxic edema, in the left frontal lobe. This very likely is related to a recent ischemic event. Reji Dasilva MD Chest X-Ray 11/10/17 1036 Signed Impressions: Service Date/Time: Friday, November 10, 2017 10:54 - CONCLUSION: No acute cardiopulmonary process. Kirby Trejo MD Liver Ultrasound 11/10/17 0000 Signed Impressions: Service Date/Time: Friday, November 10, 2017 14:47 - CONCLUSION: 1. Liver and spleen are both enlarged with multiple diffuse hepatic fatty infiltration. 2. Linear echogenic area within the lateral mid body of the spleen may represent a focal area of scarring. 3. Benign renal cortical cysts of the right kidney. 4. Small 3 mm gallbladder polyp. Gallbladder is otherwise sonographically normal. Kirby Trejo MD Brain MRI 11/10/17 0000 Signed Impressions: Service Date/Time: Friday, November 10, 2017 20:51 - CONCLUSION: The eighth of diminished attenuation involving the left frontoparietal junction on the patient's prior CT examination corresponds to acute infarction in addition to multiple other areas of new acute infarction bilaterally not present on the prior MRI dated 09/10/2017 and previously seen acute infarctions on the right side on that study have been evolved. Findings were discussed with the patient's nurse Chandan on 11/10/2017 9:19 PM. Fernanda Padilla MD Objective Remarks GENERAL: This is a well-nourished, well-developed patient, in no apparent distress. CARDIOVASCULAR: Regular rate and regular rhythm without murmurs, gallops, or rubs. RESPIRATORY: Clear to auscultation. Breath sounds equal bilaterally. No wheezes , rales, or rhonchi. GASTROINTESTINAL: Abdomen soft, non-tender, nondistended. Normal, active bowel sounds MUSCULOSKELETAL: Extremities without clubbing, cyanosis, or edema. NEURO: awake and alert. Medications and IVs Inpatient Medications Acetaminophen (Tylenol Supp) 650 mg ONCE ONCE RECTAL Last administered on 11/10at 11:41; Start 11/10/17 at 11:30; Stop 11/10/17 at 11:31; Status DC Ampicillin Sodium 2000 mg/Sodium Chloride 100 ml @ 400 mls/hr Q4H IV Last administered on 12/02/17at 09:57; Start 11/20/17 at 16:00 Aspirin (Aspirin Supp) 300 mg ONCE ONCE RECTAL Last administered on 11/10/17at 13:21; Start 11/10/17 at 13:00; Stop 11/10/17 at 13:02; Status DC Bisacodyl (Dulcolax Supp) 10 mg DAILY PRN RECTAL SEVERE CONSITIPATION; Start at 14:15 Cefepime HCl 2000 mg/Sodium Chloride 100 ml @ 200 mls/hr Q8H IV Last administered on 12/02/17at 05:27; Start 11/20/17 at 20:00 Diatrizoate Meglum/ Diatrizoate Sod ( Gastroview Liq) 18 ml ONCE ONCE PO Last administered on 11/16/17at 10:04; Start 11/16/17 at 09:15; Stop 11/16/17 at 09:16; Status DC Heparin Sodium (Porcine) (Heparin Inj) 5,000 units Q8H SQ Last administered on 12/02/17at 05:38; Start 11/10/17 at 14:15 Lactulose (Lactulose Liq) 30 ml DAILY PRN PO SEVERE CONSITIPATION; Start at 14:15 Magnesium Hydroxide (Milk Of Magnesia Liq) 30 ml Q12H PRN PO Mild constipation ; Start 11/10/17 at 14:15 Miscellaneous Information SPECIFIC LAB TO BE DRAWN:VANCOMYCIN TROUGH DATE TO... ONCE ONCE .XX Last administered on 11/12/17at 23:50; Start 11/12/17 at 23:45; Stop 11/12/17 at 23:46; Status DC Mupirocin (Bactroban Nasal 2% Oint) 1 applic BID NASAL Last administered on 11/26at 08:31; Start 11/10/17 at 21:00 Naloxone HCl (Narcan Inj) 0.4 mg UNSCH PRN IV PUSH SEE LABEL COMMENTS; Start at 14:15 Pharmacy Profile Note 0 ml @ 0 mls/hr UNSCH OTHER ; Start 11/11/17 at 15:30; Stop 11/15/17 at 08:10; Status DC Senna/Docusate Sodium (Arabella-Colace) 1 tab BID PO Last administered on 12/02/17 09:57; Start 11/10/17 at 21:00 Sennosides (Senokot) 17.2 mg Q12H PRN PO Moderate constipation; Start 11/10/17 at 14:15 Sodium Chloride 2,000 ml @ 999 mls/hr Q2H1M IV Last administered on 11/10/17at 17:45; Start 11/10/17 at 17:45; Stop 11/10/17 at 19:45; Status DC Sodium Chloride (NS Flush) 2 ml BID IV FLUSH Last administered on 12/02/17 09: 57; Start 11/10/17 at 21:00 Vancomycin HCl 750 mg/Sodium Chloride 257.5 ml @ 250 mls/hr ONCE ONCE IV Last administered on 11/10/17at 18:48; Start 11/10/17 at 16:00; Stop 11/10/17 at 17:01; Status DC Vancomycin HCl 1000 mg/Sodium Chloride 250 ml @ 250 mls/hr ONCE STAT IV Last administered on 11/10/17at 13:21; Start 11/10/17 at 10:36; Stop 11/10/17 at 11:35 ; Status DC Vancomycin HCl 1250 mg/Sodium Chloride 262.5 ml @ 250 mls/hr Q12H IV Last administered on 2/18/18at 19:49; Start 11/13/17 at 20:00; Stop 11/15/17 at 08:10 ; Status DC A/P Problem List: (1) Bacteremia ICD Code: R78.81 - Bacteremia (2) UTI (urinary tract infection) ICD Code: N39.0 - Urinary tract infection, site not specified (3) CVA (cerebral vascular accident) ICD Code: I63.9 - Cerebral infarction, unspecified (4) Cocaine abuse ICD Code: F14.10 - Cocaine abuse, uncomplicated (5) Aortic valve endocarditis ICD Code: I35.8 - Other nonrheumatic aortic valve disorders Assessment and Plan Aortic valve endocarditis pseudomonas bacteremia septic splenic/renal infarcts Continue on IV antibiotics as per infectious disease Infectious disease ff. CT chest with pneumonia likely secondary to infected emboli. 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 Steatosis on liver US -10/29 etoh. f/u PCP Swollen Ankle Xray negative for acute process Ultrasound negative for DVT. No sign of acute ankle infection. Continue to monitor. Refrigeration Engine Operator was consulted and following. Per community recreation coordinator recommend compress elevate and continue warm compress with continued ABXs since ankle is improving. Refrigeration Engine Operator stated that if there is any worsening of symptoms can reconsult. anemia- of chronic disease H/H stable- will monitor periodically. Social situation. Patient with history of IV drug use, noncompliance. Patient has requested to forego treatment. Per psychiatrist patient does not have the capacity to make medical decisions. DVT prophylaxis -Encourage ambulation. Discharge Planning on IV antibiotics. patient is a self-pay. Aurora Choi MD Dec 02, 2017 11:30
[2017-12-02 11:41] VITALS: BP 131/50; PULSE 85; RESP 18; TEMP 96.9; O2SAT 97
[2017-12-02 16:00] VITALS: BP 112/62; PULSE 84; RESP 18; TEMP 96.8; O2SAT 97
[2017-12-02 20:15] VITALS: BP 109/48; PULSE 85; RESP 17; TEMP 97.1; O2SAT 93
[2017-12-03 00:36] VITALS: BP 111/45; PULSE 88; RESP 17; TEMP 96.9; O2SAT 96
[2017-12-03] MEDS: AMPICILLIN INJ 2,000 MG in SODIUM CHLORIDE 0.9% INJ 100 ML IV SCH ×6 (00:36→19:51)
[2017-12-03] MEDS: CEFEPIME INJ 2,000 MG in SODIUM CHLORIDE 0.9% INJ 100 ML IV SCH ×3 (04:00→19:51)
[2017-12-03] MEDS: HEPARIN SODIUM - SQ 10,000 UNITS/ML VIAL SQ SCH ×3 (06:15→22:22)
[2017-12-03 08:00] VITALS: BP 127/48; PULSE 77; RESP 17; TEMP 96.8; O2SAT 96
[2017-12-03] MEDS: MUPIROCIN 2% OINT 1 APPLIC/GM SYR NASAL SCH ×2 (09:00→19:51)
[2017-12-03] MEDS: SODIUM CHLORIDE 0.9% FLUSH 10 ML FLUSH IV FLUSH SCH ×2 (10:12→19:51)
[2017-12-03] MEDS: DOCUSATE SODIUM 50 MG/SENNA 8.6 MG TAB PO SCH ×2 (10:23→19:51)
[2017-12-03 12:00] VITALS: BP 118/47; PULSE 88; RESP 18; TEMP 95.2; O2SAT 96
--- NOTE | 2017-12-03 12:18 | HHI.PR ---
Subjective Remarks in no acute distress. no fever. no new complaints. Objective Vitals Vital Signs Date Time Temp Pulse Resp B/P (MAP) Pulse Ox O2 Delivery O2 Flow Rate FiO2 12/03/17 12:00 95.2 88 18 118/47 (70) 96 12/03/17 08:00 96.8 77 17 127/48 (74) 96 12/03/17 00:36 96.9 88 17 111/45 (67) 96 12/02/17 20:15 97.1 85 17 109/48 (68) 93 12/02/17 16:00 96.8 84 18 112/62 (79) 97 I/O 12/02/17 12/02/17 12/02/17 12/03/17 12/03/17 12/03/17 07:00 15:00 23:00 07:00 15:00 23:00 Intake Total 520 ml 1160 ml 860 ml 360 ml Output Total 500 ml Balance 20 ml 1160 ml 860 ml 360 ml Intake Oral 520 ml 960 ml 360 ml 360 ml IV Total 200 ml 500 ml Output Urine Total 500 ml # Voids 3 2 2 # Bowel Movements 0 1 0 0 Result Diagram: 11/29/17 0844 11/29/17 0844 Imaging Last Impressions Lower Extremity Ultrasound 11/19/17 0000 Signed Impressions: Service Date/Time: Sunday, November 19, 2017 08:30 - CONCLUSION: Complex fluid collection in the posterior medial soft tissues measuring up to 1.2 cm, correlating with the findings seen on recent MRI. Seth Verma MD Ankle MRI 11/17/17 0000 Signed Impressions: Service Date/Time: Friday, November 17, 2017 21:51 - CONCLUSION: 1. Normal marrow edema with no evidence of osteomyelitis. 2. Soft tissue edema along the medial ankle with 1.2 cm focal area of abnormality which could represent a small abscess or cystic structure. This did not enhance. 3. Mild tenosynovitis involving the flexor digitorum longus tendon, tibialis posterior tendon and peroneus longus tendon Jerad Santos MD Chest CT 11/16/17 0000 Signed Impressions: Service Date/Time: Thursday, November 16, 2017 12:55 - CONCLUSION: 1. Trace right and small left pleural effusions with associated airspace consolidation at the lung bases. Differential considerations include aspiration or pneumonia with reactive effusions versus pleural effusions with compressive atelectasis. 2. Partially imaged right shaped defects in the azygous portions of the spleen which may reflect splenic infarcts. 3. Eccentric aortic valve calcifications consistent with prior history of aortic valve endocarditis. Russell Jose MD Abdomen/Pelvis CT 11/16/17 0000 Signed Impressions: Service Date/Time: Thursday, November 16, 2017 12:57 - CONCLUSION: 1. Stable probable embolic splenic and renal infarcts. 2. No acute abnormality or significant interval change. Specifically, no evidence for drainable abscess in the abdomen. Russell Jose MD Ankle X-Ray 11/14/17 0000 Signed Impressions: Service Date/Time: Tuesday, November 14, 2017 14:00 - CONCLUSION: Unremarkable examination of the right ankle. Valeriy Chapa MD Head CT 11/10/17 1036 Signed Impressions: Service Date/Time: Friday, November 10, 2017 12:16 - CONCLUSION: There is abnormal low density, likely representing cytotoxic edema, in the left frontal lobe. This very likely is related to a recent ischemic event. Reji Dasilva MD Chest X-Ray 11/10/17 1036 Signed Impressions: Service Date/Time: Friday, November 10, 2017 10:54 - CONCLUSION: No acute cardiopulmonary process. Kirby Trejo MD Liver Ultrasound 11/10/17 0000 Signed Impressions: Service Date/Time: Friday, November 10, 2017 14:47 - CONCLUSION: 1. Liver and spleen are both enlarged with multiple diffuse hepatic fatty infiltration. 2. Linear echogenic area within the lateral mid body of the spleen may represent a focal area of scarring. 3. Benign renal cortical cysts of the right kidney. 4. Small 3 mm gallbladder polyp. Gallbladder is otherwise sonographically normal. Kirby Trejo MD Brain MRI 11/10/17 0000 Signed Impressions: Service Date/Time: Friday, November 10, 2017 20:51 - CONCLUSION: The eighth of diminished attenuation involving the left frontoparietal junction on the patient's prior CT examination corresponds to acute infarction in addition to multiple other areas of new acute infarction bilaterally not present on the prior MRI dated 09/10/2017 and previously seen acute infarctions on the right side on that study have been evolved. Findings were discussed with the patient's nurse Chandan on 11/10/2017 9:19 PM. Fernanda Padilla MD Objective Remarks GENERAL: This is a well-nourished, well-developed patient, in no apparent distress. CARDIOVASCULAR: Regular rate and regular rhythm without murmurs, gallops, or rubs. RESPIRATORY: Clear to auscultation. Breath sounds equal bilaterally. No wheezes , rales, or rhonchi. GASTROINTESTINAL: Abdomen soft, non-tender, nondistended. Normal, active bowel sounds MUSCULOSKELETAL: Extremities without clubbing, cyanosis, or edema. NEURO: awake and alert. Medications and IVs Inpatient Medications Acetaminophen (Tylenol Supp) 650 mg ONCE ONCE RECTAL Last administered on 11/10at 11:41; Start 11/10/17 at 11:30; Stop 11/10/17 at 11:31; Status DC Ampicillin Sodium 2000 mg/Sodium Chloride 100 ml @ 400 mls/hr Q4H IV Last administered on 12/03/17at 10:12; Start 11/20/17 at 16:00 Aspirin (Aspirin Supp) 300 mg ONCE ONCE RECTAL Last administered on 11/10/17at 13:21; Start 11/10/17 at 13:00; Stop 11/10/17 at 13:02; Status DC Bisacodyl (Dulcolax Supp) 10 mg DAILY PRN RECTAL SEVERE CONSITIPATION; Start at 14:15 Cefepime HCl 2000 mg/Sodium Chloride 100 ml @ 200 mls/hr Q8H IV Last administered on 12/03/17at 11:06; Start 11/20/17 at 20:00 Diatrizoate Meglum/ Diatrizoate Sod ( Gastroview Liq) 18 ml ONCE ONCE PO Last administered on 11/16/17at 10:04; Start 11/16/17 at 09:15; Stop 11/16/17 at 09:16; Status DC Heparin Sodium (Porcine) (Heparin Inj) 5,000 units Q8H SQ Last administered on 12/03/17at 06:15; Start 11/10/17 at 14:15 Lactulose (Lactulose Liq) 30 ml DAILY PRN PO SEVERE CONSITIPATION; Start at 14:15 Magnesium Hydroxide (Milk Of Magnesia Liq) 30 ml Q12H PRN PO Mild constipation ; Start 11/10/17 at 14:15 Miscellaneous Information SPECIFIC LAB TO BE DRAWN:VANCOMYCIN TROUGH DATE TO... ONCE ONCE .XX Last administered on 11/12/17at 23:50; Start 11/12/17 at 23:45; Stop 11/12/17 at 23:46; Status DC Mupirocin (Bactroban Nasal 2% Oint) 1 applic BID NASAL Last administered on 11/26at 08:31; Start 11/10/17 at 21:00 Naloxone HCl (Narcan Inj) 0.4 mg UNSCH PRN IV PUSH SEE LABEL COMMENTS; Start at 14:15 Pharmacy Profile Note 0 ml @ 0 mls/hr UNSCH OTHER ; Start 11/11/17 at 15:30; Stop 11/15/17 at 08:10; Status DC Senna/Docusate Sodium (Arabella-Colace) 1 tab BID PO Last administered on 12/03/17at 10:23; Start 11/10/17 at 21:00 Sennosides (Senokot) 17.2 mg Q12H PRN PO Moderate constipation; Start 11/10/17 at 14:15 Sodium Chloride 2,000 ml @ 999 mls/hr Q2H1M IV Last administered on 11/10/17at 17:45; Start 11/10/17 at 17:45; Stop 11/10/17 at 19:45; Status DC Sodium Chloride (NS Flush) 2 ml BID IV FLUSH Last administered on 12/03/17at 10: 12; Start 11/10/17 at 21:00 Vancomycin HCl 750 mg/Sodium Chloride 257.5 ml @ 250 mls/hr ONCE ONCE IV Last administered on 11/10/17at 18:48; Start 11/10/17 at 16:00; Stop 11/10/17 at 17:01; Status DC Vancomycin HCl 1000 mg/Sodium Chloride 250 ml @ 250 mls/hr ONCE STAT IV Last administered on 11/10/17at 13:21; Start 11/10/17 at 10:36; Stop 11/10/17 at 11:35 ; Status DC Vancomycin HCl 1250 mg/Sodium Chloride 262.5 ml @ 250 mls/hr Q12H IV Last administered on 11/14/17at 19:49; Start 11/13/17 at 20:00; Stop 11/15/17 at 08:10 ; Status DC A/P Problem List: (1) Bacteremia ICD Code: R78.81 - Bacteremia (2) UTI (urinary tract infection) ICD Code: N39.0 - Urinary tract infection, site not specified (3) CVA (cerebral vascular accident) ICD Code: I63.9 - Cerebral infarction, unspecified (4) Cocaine abuse ICD Code: F14.10 - Cocaine abuse, uncomplicated (5) Aortic valve endocarditis ICD Code: I35.8 - Other nonrheumatic aortic valve disorders Assessment and Plan Aortic valve endocarditis pseudomonas bacteremia septic splenic/renal infarcts Continue on IV antibiotics as per infectious disease on Ampicillin and Cefepime- stop date; 12/23/17 -per ID. 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 Steatosis on liver US -10/29 etoh. f/u PCP Swollen Ankle Xray negative for acute process Ultrasound negative for DVT. No sign of acute ankle infection. Continue to monitor. Deputy Juvenile Officer was consulted and following. Per marketing team lead recommend compress elevate and continue warm compress with continued ABXs since ankle is improving. Deputy Juvenile Officer stated that if there is any worsening of symptoms can reconsult. anemia- of chronic disease H/H stable- will monitor periodically. Social situation. Patient with history of IV drug use, noncompliance. Patient has requested to forego treatment. Per psychiatrist patient does not have the capacity to make medical decisions. DVT prophylaxis -Encourage ambulation. Discharge Planning on IV antibiotics. patient is a self-pay. Aurora Choi MD Dec 03, 2017 12:18
[2017-12-03 16:00] VITALS: BP 116/49; PULSE 80; RESP 20; TEMP 96.8; O2SAT 99
[2017-12-03 20:00] VITALS: BP 118/53; PULSE 85; RESP 16; TEMP 97; O2SAT 95
[2017-12-04 00:03] VITALS: BP 127/47; PULSE 83; RESP 17; TEMP 97.1; O2SAT 97
[2017-12-04] MEDS: AMPICILLIN INJ 2,000 MG in SODIUM CHLORIDE 0.9% INJ 100 ML IV SCH ×7 (00:19→23:10)
[2017-12-04] MEDS: CEFEPIME INJ 2,000 MG in SODIUM CHLORIDE 0.9% INJ 100 ML IV SCH ×3 (04:33→20:51)
[2017-12-04] MEDS: HEPARIN SODIUM - SQ 10,000 UNITS/ML VIAL SQ SCH ×3 (06:26→22:33)
[2017-12-04 08:00] VITALS: BP 122/57; PULSE 88; RESP 20; TEMP 97.4; O2SAT 94
[2017-12-04] MEDS: SODIUM CHLORIDE 0.9% FLUSH 10 ML FLUSH IV FLUSH SCH ×2 (08:09→20:52)
[2017-12-04] MEDS: MUPIROCIN 2% OINT 1 APPLIC/GM SYR NASAL SCH ×2 (08:10→20:52)
[2017-12-04] MEDS: DOCUSATE SODIUM 50 MG/SENNA 8.6 MG TAB PO SCH ×2 (08:10→20:52)
[2017-12-04 12:00] VITALS: BP 115/57; PULSE 81; RESP 20; TEMP 97.6; O2SAT 96
--- NOTE | 2017-12-04 12:41 | HHI.PR ---
Subjective Remarks in no acute distress. no pain or fever. d/w the RN and no acute issues over night. Objective Vitals Vital Signs Date Time Temp Pulse Resp B/P (MAP) Pulse Ox O2 Delivery O2 Flow Rate FiO2 12/04/17 08:00 97.4 88 20 122/57 (78) 94 12/04/17 00:03 97.1 83 17 127/47 (73) 97 12/03/17 20:00 97.0 85 16 118/53 (74) 95 12/03/17 16:00 96.8 80 20 116/49 (71) 99 I/O 12/03/17 12/03/17 12/03/17 12/04/17 12/04/17 12/04/17 07:00 15:00 23:00 07:00 15:00 23:00 Intake Total 360 ml 240 ml Balance 360 ml 240 ml Intake Oral 360 ml 240 ml # Voids 2 6 2 # Bowel Movements 0 1 0 Imaging Last Impressions Lower Extremity Ultrasound 11/19/17 0000 Signed Impressions: Service Date/Time: Sunday, November 19, 2017 08:30 - CONCLUSION: Complex fluid collection in the posterior medial soft tissues measuring up to 1.2 cm, correlating with the findings seen on recent MRI. Seth Verma MD Ankle MRI 11/17/17 0000 Signed Impressions: Service Date/Time: Friday, November 17, 2017 21:51 - CONCLUSION: 1. Normal marrow edema with no evidence of osteomyelitis. 2. Soft tissue edema along the medial ankle with 1.2 cm focal area of abnormality which could represent a small abscess or cystic structure. This did not enhance. 3. Mild tenosynovitis involving the flexor digitorum longus tendon, tibialis posterior tendon and peroneus longus tendon Jerad Santos MD Chest CT 11/16/17 0000 Signed Impressions: Service Date/Time: Thursday, November 16, 2017 12:55 - CONCLUSION: 1. Trace right and small left pleural effusions with associated airspace consolidation at the lung bases. Differential considerations include aspiration or pneumonia with reactive effusions versus pleural effusions with compressive atelectasis. 2. Partially imaged right shaped defects in the azygous portions of the spleen which may reflect splenic infarcts. 3. Eccentric aortic valve calcifications consistent with prior history of aortic valve endocarditis. Russell Jose MD Abdomen/Pelvis CT 11/16/17 0000 Signed Impressions: Service Date/Time: Thursday, November 16, 2017 12:57 - CONCLUSION: 1. Stable probable embolic splenic and renal infarcts. 2. No acute abnormality or significant interval change. Specifically, no evidence for drainable abscess in the abdomen. Russell Jose MD Ankle X-Ray 11/14/17 0000 Signed Impressions: Service Date/Time: Tuesday, November 14, 2017 14:00 - CONCLUSION: Unremarkable examination of the right ankle. Valeriy Chapa MD Head CT 11/10/17 1036 Signed Impressions: Service Date/Time: Friday, November 10, 2017 12:16 - CONCLUSION: There is abnormal low density, likely representing cytotoxic edema, in the left frontal lobe. This very likely is related to a recent ischemic event. Reji Dasilva MD Chest X-Ray 11/10/17 1036 Signed Impressions: Service Date/Time: Friday, November 10, 2017 10:54 - CONCLUSION: No acute cardiopulmonary process. Kirby Trejo MD Liver Ultrasound 11/10/17 0000 Signed Impressions: Service Date/Time: Friday, November 10, 2017 14:47 - CONCLUSION: 1. Liver and spleen are both enlarged with multiple diffuse hepatic fatty infiltration. 2. Linear echogenic area within the lateral mid body of the spleen may represent a focal area of scarring. 3. Benign renal cortical cysts of the right kidney. 4. Small 3 mm gallbladder polyp. Gallbladder is otherwise sonographically normal. Kirby Trejo MD Brain MRI 11/10/17 0000 Signed Impressions: Service Date/Time: Friday, November 10, 2017 20:51 - CONCLUSION: The eighth of diminished attenuation involving the left frontoparietal junction on the patient's prior CT examination corresponds to acute infarction in addition to multiple other areas of new acute infarction bilaterally not present on the prior MRI dated 09/10/2017 and previously seen acute infarctions on the right side on that study have been evolved. Findings were discussed with the patient's nurse Chandan on 11/10/2017 9:19 PM. Fernanda Padilla MD Objective Remarks GENERAL: This is a well-nourished, well-developed patient, in no apparent distress. CARDIOVASCULAR: Regular rate and regular rhythm without murmurs, gallops, or rubs. RESPIRATORY: Clear to auscultation. Breath sounds equal bilaterally. No wheezes , rales, or rhonchi. GASTROINTESTINAL: Abdomen soft, non-tender, nondistended. Normal, active bowel sounds MUSCULOSKELETAL: Extremities without clubbing, cyanosis, or edema. NEURO: awake and alert. Medications and IVs Inpatient Medications Acetaminophen (Tylenol Supp) 650 mg ONCE ONCE RECTAL Last administered on 11/10at 11:41; Start 11/10/17 at 11:30; Stop 11/10/17 at 11:31; Status DC Ampicillin Sodium 2000 mg/Sodium Chloride 100 ml @ 400 mls/hr Q4H IV Last administered on 12/04/17at 12:00; Start 11/20/17 at 16:00 Aspirin (Aspirin Supp) 300 mg ONCE ONCE RECTAL Last administered on 11/10/17at 13:21; Start 11/10/17 at 13:00; Stop 11/10/17 at 13:02; Status DC Bisacodyl (Dulcolax Supp) 10 mg DAILY PRN RECTAL SEVERE CONSITIPATION; Start at 14:15 Cefepime HCl 2000 mg/Sodium Chloride 100 ml @ 200 mls/hr Q8H IV Last administered on 12/04/17at 11:59; Start 11/20/17 at 20:00 Diatrizoate Meglum/ Diatrizoate Sod ( Gastroview Liq) 18 ml ONCE ONCE PO Last administered on 11/16/17at 10:04; Start 11/16/17 at 09:15; Stop 11/16/17 at 09:16; Status DC Heparin Sodium (Porcine) (Heparin Inj) 5,000 units Q8H SQ Last administered on 12/04/17at 12:00; Start 11/10/17 at 14:15 Lactulose (Lactulose Liq) 30 ml DAILY PRN PO SEVERE CONSITIPATION; Start at 14:15 Magnesium Hydroxide (Milk Of Magnesia Liq) 30 ml Q12H PRN PO Mild constipation ; Start 11/10/17 at 14:15 Miscellaneous Information SPECIFIC LAB TO BE DRAWN:VANCOMYCIN TROUGH DATE TO... ONCE ONCE .XX Last administered on 11/12/17at 23:50; Start 11/12/17 at 23:45; Stop 11/12/17 at 23:46; Status DC Mupirocin (Bactroban Nasal 2% Oint) 1 applic BID NASAL Last administered on 11/26at 08:31; Start 11/10/17 at 21:00 Naloxone HCl (Narcan Inj) 0.4 mg UNSCH PRN IV PUSH SEE LABEL COMMENTS; Start at 14:15 Pharmacy Profile Note 0 ml @ 0 mls/hr UNSCH OTHER ; Start 11/11/17 at 15:30; Stop 11/15/17 at 08:10; Status DC Senna/Docusate Sodium (Arabella-Colace) 1 tab BID PO Last administered on 12/03/17at 10:23; Start 11/10/17 at 21:00 Sennosides (Senokot) 17.2 mg Q12H PRN PO Moderate constipation; Start 11/10/17 at 14:15 Sodium Chloride 2,000 ml @ 999 mls/hr Q2H1M IV Last administered on 11/10/17at 17:45; Start 11/10/17 at 17:45; Stop 11/10/17 at 19:45; Status DC Sodium Chloride (NS Flush) 2 ml BID IV FLUSH Last administered on 12/04/17at 08: 09; Start 11/10/17 at 21:00 Vancomycin HCl 750 mg/Sodium Chloride 257.5 ml @ 250 mls/hr ONCE ONCE IV Last administered on 11/10/17at 18:48; Start 11/10/17 at 16:00; Stop 11/10/17 at 17:01; Status DC Vancomycin HCl 1000 mg/Sodium Chloride 250 ml @ 250 mls/hr ONCE STAT IV Last administered on 11/10/17at 13:21; Start 11/10/17 at 10:36; Stop 11/10/17 at 11:35 ; Status DC Vancomycin HCl 1250 mg/Sodium Chloride 262.5 ml @ 250 mls/hr Q12H IV Last administered on 11/14/17at 19:49; Start 11/13/17 at 20:00; Stop 11/15/17 at 08:10 ; Status DC A/P Problem List: (1) Bacteremia ICD Code: R78.81 - Bacteremia (2) UTI (urinary tract infection) ICD Code: N39.0 - Urinary tract infection, site not specified (3) CVA (cerebral vascular accident) ICD Code: I63.9 - Cerebral infarction, unspecified (4) Cocaine abuse ICD Code: F14.10 - Cocaine abuse, uncomplicated (5) Aortic valve endocarditis ICD Code: I35.8 - Other nonrheumatic aortic valve disorders Assessment and Plan Aortic valve endocarditis pseudomonas bacteremia septic splenic/renal infarcts Continue on IV antibiotics as per infectious disease on Ampicillin and Cefepime- stop date; 12/23/17 -per ID. 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 Steatosis on liver US -10/29 etoh. f/u PCP Swollen Ankle Xray negative for acute process Ultrasound negative for DVT. No sign of acute ankle infection. Continue to monitor. Teller Supervisor was consulted and following. Per self pay representative recommend compress elevate and continue warm compress with continued ABXs since ankle is improving. Teller Supervisor stated that if there is any worsening of symptoms can reconsult. anemia- of chronic disease H/H stable- will monitor periodically. Social situation. Patient with history of IV drug use, noncompliance. Patient has requested to forego treatment. Per psychiatrist patient does not have the capacity to make medical decisions. DVT prophylaxis -Encourage ambulation. Discharge Planning on IV antibiotics. patient is a self-pay. Aurora Choi MD Dec 04, 2017 12:41
[2017-12-04 16:00] VITALS: BP 143/64; PULSE 82; RESP 20; TEMP 96; O2SAT 95
[2017-12-04 19:55] VITALS: BP 99/49; PULSE 83; RESP 17; TEMP 96.7; O2SAT 97
[2017-12-04 23:15] VITALS: BP 111/55; PULSE 81; RESP 17; TEMP 98; O2SAT 95
[2017-12-05] MEDS: CEFEPIME INJ 2,000 MG in SODIUM CHLORIDE 0.9% INJ 100 ML IV SCH ×3 (03:54→20:30)
[2017-12-05] MEDS: AMPICILLIN INJ 2,000 MG in SODIUM CHLORIDE 0.9% INJ 100 ML IV SCH ×6 (03:54→23:31)
[2017-12-05] MEDS: HEPARIN SODIUM - SQ 10,000 UNITS/ML VIAL SQ SCH ×3 (05:44→22:11)
[2017-12-05 08:00] VITALS: BP 117/56; PULSE 81; RESP 16; TEMP 97; O2SAT 97
[2017-12-05] MEDS: SODIUM CHLORIDE 0.9% FLUSH 10 ML FLUSH IV FLUSH SCH ×2 (08:06→20:30)
[2017-12-05] MEDS: DOCUSATE SODIUM 50 MG/SENNA 8.6 MG TAB PO SCH ×2 (08:06→20:31)
[2017-12-05] MEDS: MUPIROCIN 2% OINT 1 APPLIC/GM SYR NASAL SCH ×2 (08:06→20:30)
--- NOTE | 2017-12-05 08:45 | HHI.PR ---
Subjective Remarks in no acute distress. no new complaints. afebrile. Objective Vitals Vital Signs Date Time Temp Pulse Resp B/P (MAP) Pulse Ox O2 Delivery O2 Flow Rate FiO2 12/04/17 23:15 98.0 81 17 111/55 (73) 95 12/04/17 19:55 96.7 83 17 99/49 (66) 97 12/04/17 16:00 96.0 82 20 143/64 (90) 95 12/04/17 12:00 97.6 81 20 115/57 (76) 96 I/O 12/04/17 12/04/17 12/04/17 12/05/17 12/05/17 12/05/17 07:00 15:00 23:00 07:00 15:00 23:00 Intake Total 240 ml 720 ml 200 ml 2364 ml 600 ml Balance 240 ml 720 ml 200 ml 2364 ml 600 ml Intake Oral 240 ml 720 ml 600 ml IV Total 200 ml 2364 ml # Voids 2 3 4 # Bowel Movements 0 1 0 Imaging Last Impressions Lower Extremity Ultrasound 11/19/17 0000 Signed Impressions: Service Date/Time: Sunday, November 19, 2017 08:30 - CONCLUSION: Complex fluid collection in the posterior medial soft tissues measuring up to 1.2 cm, correlating with the findings seen on recent MRI. Seth Verma MD Ankle MRI 11/17/17 0000 Signed Impressions: Service Date/Time: Friday, November 17, 2017 21:51 - CONCLUSION: 1. Normal marrow edema with no evidence of osteomyelitis. 2. Soft tissue edema along the medial ankle with 1.2 cm focal area of abnormality which could represent a small abscess or cystic structure. This did not enhance. 3. Mild tenosynovitis involving the flexor digitorum longus tendon, tibialis posterior tendon and peroneus longus tendon Jerad Santos MD Chest CT 11/16/17 0000 Signed Impressions: Service Date/Time: Thursday, November 16, 2017 12:55 - CONCLUSION: 1. Trace right and small left pleural effusions with associated airspace consolidation at the lung bases. Differential considerations include aspiration or pneumonia with reactive effusions versus pleural effusions with compressive atelectasis. 2. Partially imaged right shaped defects in the azygous portions of the spleen which may reflect splenic infarcts. 3. Eccentric aortic valve calcifications consistent with prior history of aortic valve endocarditis. Russell Jose MD Abdomen/Pelvis CT 11/16/17 0000 Signed Impressions: Service Date/Time: Thursday, November 16, 2017 12:57 - CONCLUSION: 1. Stable probable embolic splenic and renal infarcts. 2. No acute abnormality or significant interval change. Specifically, no evidence for drainable abscess in the abdomen. Russell Jose MD Ankle X-Ray 11/14/17 0000 Signed Impressions: Service Date/Time: Tuesday, November 14, 2017 14:00 - CONCLUSION: Unremarkable examination of the right ankle. Valeriy Chapa MD Head CT 11/10/17 1036 Signed Impressions: Service Date/Time: Friday, November 10, 2017 12:16 - CONCLUSION: There is abnormal low density, likely representing cytotoxic edema, in the left frontal lobe. This very likely is related to a recent ischemic event. Reji Dasilva MD Chest X-Ray 11/10/17 1036 Signed Impressions: Service Date/Time: Friday, November 10, 2017 10:54 - CONCLUSION: No acute cardiopulmonary process. Kirby Trejo MD Liver Ultrasound 11/10/17 0000 Signed Impressions: Service Date/Time: Friday, November 10, 2017 14:47 - CONCLUSION: 1. Liver and spleen are both enlarged with multiple diffuse hepatic fatty infiltration. 2. Linear echogenic area within the lateral mid body of the spleen may represent a focal area of scarring. 3. Benign renal cortical cysts of the right kidney. 4. Small 3 mm gallbladder polyp. Gallbladder is otherwise sonographically normal. Kirby Trejo MD Brain MRI 11/10/17 0000 Signed Impressions: Service Date/Time: Friday, November 10, 2017 20:51 - CONCLUSION: The eighth of diminished attenuation involving the left frontoparietal junction on the patient's prior CT examination corresponds to acute infarction in addition to multiple other areas of new acute infarction bilaterally not present on the prior MRI dated 09/10/2017 and previously seen acute infarctions on the right side on that study have been evolved. Findings were discussed with the patient's nurse Chandan on 11/10/2017 9:19 PMDasha Padilla MD Objective Remarks GENERAL: This is a well-nourished, well-developed patient, in no apparent distress. CARDIOVASCULAR: Regular rate and regular rhythm without murmurs, gallops, or rubs. RESPIRATORY: Clear to auscultation. Breath sounds equal bilaterally. No wheezes , rales, or rhonchi. GASTROINTESTINAL: Abdomen soft, non-tender, nondistended. Normal, active bowel sounds MUSCULOSKELETAL: Extremities without clubbing, cyanosis, or edema. NEURO: awake and alert. Medications and IVs Inpatient Medications Acetaminophen (Tylenol Supp) 650 mg ONCE ONCE RECTAL Last administered on 11/10at 11:41; Start 11/10/17 at 11:30; Stop 11/10/17 at 11:31; Status DC Ampicillin Sodium 2000 mg/Sodium Chloride 100 ml @ 400 mls/hr Q4H IV Last administered on 12/05/17at 08:03; Start 11/20/17 at 16:00 Aspirin (Aspirin Supp) 300 mg ONCE ONCE RECTAL Last administered on 11/10/17at 13:21; Start 11/10/17 at 13:00; Stop 11/10/17 at 13:02; Status DC Bisacodyl (Dulcolax Supp) 10 mg DAILY PRN RECTAL SEVERE CONSITIPATION; Start at 14:15 Cefepime HCl 2000 mg/Sodium Chloride 100 ml @ 200 mls/hr Q8H IV Last administered on 12/05/17at 03:54; Start 11/20/17 at 20:00 Diatrizoate Meglum/ Diatrizoate Sod ( Gastroview Liq) 18 ml ONCE ONCE PO Last administered on 11/16/17at 10:04; Start 11/16/17 at 09:15; Stop 11/16/17 at 09:16; Status DC Heparin Sodium (Porcine) (Heparin Inj) 5,000 units Q8H SQ Last administered on 12/05/17at 05:44; Start 11/10/17 at 14:15 Lactulose (Lactulose Liq) 30 ml DAILY PRN PO SEVERE CONSITIPATION; Start at 14:15 Magnesium Hydroxide (Milk Of Magnesia Liq) 30 ml Q12H PRN PO Mild constipation ; Start 11/10/17 at 14:15 Miscellaneous Information SPECIFIC LAB TO BE DRAWN:VANCOMYCIN TROUGH DATE TO... ONCE ONCE .XX Last administered on 11/12/17at 23:50; Start 11/12/17 at 23:45; Stop 11/12/17 at 23:46; Status DC Mupirocin (Bactroban Nasal 2% Oint) 1 applic BID NASAL Last administered on 11/26at 08:31; Start 11/10/17 at 21:00 Naloxone HCl (Narcan Inj) 0.4 mg UNSCH PRN IV PUSH SEE LABEL COMMENTS; Start at 14:15 Pharmacy Profile Note 0 ml @ 0 mls/hr UNSCH OTHER ; Start 11/11/17 at 15:30; Stop 11/15/17 at 08:10; Status DC Senna/Docusate Sodium (Arabella-Colace) 1 tab BID PO Last administered on 12/03/17at 10:23; Start 11/10/17 at 21:00 Sennosides (Senokot) 17.2 mg Q12H PRN PO Moderate constipation; Start 11/10/17 at 14:15 Sodium Chloride 2,000 ml @ 999 mls/hr Q2H1M IV Last administered on 11/10/17at 17:45; Start 11/10/17 at 17:45; Stop 11/10/17 at 19:45; Status DC Sodium Chloride (NS Flush) 2 ml BID IV FLUSH Last administered on 12/05/17at 08: 06; Start 11/10/17 at 21:00 Vancomycin HCl 750 mg/Sodium Chloride 257.5 ml @ 250 mls/hr ONCE ONCE IV Last administered on 11/10/17at 18:48; Start 11/10/17 at 16:00; Stop 11/10/17 at 17:01; Status DC Vancomycin HCl 1000 mg/Sodium Chloride 250 ml @ 250 mls/hr ONCE STAT IV Last administered on 11/10/17at 13:21; Start 11/10/17 at 10:36; Stop 11/10/17 at 11:35 ; Status DC Vancomycin HCl 1250 mg/Sodium Chloride 262.5 ml @ 250 mls/hr Q12H IV Last administered on 11/14/17at 19:49; Start 11/13/17 at 20:00; Stop 11/15/17 at 08:10 ; Status DC A/P Problem List: (1) Bacteremia ICD Code: R78.81 - Bacteremia (2) UTI (urinary tract infection) ICD Code: N39.0 - Urinary tract infection, site not specified (3) CVA (cerebral vascular accident) ICD Code: I63.9 - Cerebral infarction, unspecified (4) Cocaine abuse ICD Code: F14.10 - Cocaine abuse, uncomplicated (5) Aortic valve endocarditis ICD Code: I35.8 - Other nonrheumatic aortic valve disorders Assessment and Plan Aortic valve endocarditis pseudomonas bacteremia septic splenic/renal infarcts Continue on IV antibiotics as per infectious disease on Ampicillin and Cefepime- stop date; 12/23/17 -per ID. CBC, CMP and CRP weekly while on IV antibiotics. 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 Steatosis on liver US -10/29 etoh. f/u PCP Swollen Ankle Xray negative for acute process Ultrasound negative for DVT. No sign of acute ankle infection. Continue to monitor. Management Consultant was consulted and following. Per sign shop supervisor recommend compress elevate and continue warm compress with continued ABXs since ankle is improving. Management Consultant stated that if there is any worsening of symptoms can reconsult. anemia- of chronic disease H/H stable- will monitor periodically. Social situation. Patient with history of IV drug use, noncompliance. Patient has requested to forego treatment. Per psychiatrist patient does not have the capacity to make medical decisions. DVT prophylaxis -Encourage ambulation. Discharge Planning on IV antibiotics. patient is a self-pay. Aurora Choi MD Dec 05, 2017 08:45
[2017-12-05 12:00] VITALS: BP 105/51; PULSE 83; RESP 16; TEMP 96.1; O2SAT 95
[2017-12-05 16:00] VITALS: BP 140/63; PULSE 82; RESP 16; TEMP 96; O2SAT 98
[2017-12-05 19:40] VITALS: BP 116/58; PULSE 87; RESP 18; TEMP 96.7; O2SAT 96
[2017-12-06 00:45] VITALS: BP 143/60; PULSE 81; RESP 17; TEMP 96.9; O2SAT 94
[2017-12-06] MEDS: SODIUM CHLORIDE 0.9% FLUSH 10 ML FLUSH IV FLUSH PRN ×2 (03:24→05:13)
[2017-12-06] MEDS: AMPICILLIN INJ 2,000 MG in SODIUM CHLORIDE 0.9% INJ 100 ML IV SCH ×5 (03:24→20:31)
[2017-12-06] MEDS: CEFEPIME INJ 2,000 MG in SODIUM CHLORIDE 0.9% INJ 100 ML IV SCH ×3 (03:24→20:31)
[2017-12-06] MEDS: HEPARIN SODIUM - SQ 10,000 UNITS/ML VIAL SQ SCH ×3 (05:14→22:30)
[2017-12-06 06:54] LABS: AUTOMATED NEUTROPHIL # 5.1 TH/MM3 (1.8-7.7); BASOPHIL # 0.1 TH/MM3 (0-0.2); BASOPHIL % 0.9 % (0.0-2.0); EOSINOPHIL # 0.5 TH/MM3 (0-0.4); EOSINOPHIL % 5.3 % (0.0-4.0); HEMATOCRIT 29.9 % (39.0-51.0); HEMOGLOBIN 9.8 GM/DL (13.0-17.0); LYMPH % 28.3 % (9.0-44.0); LYMPHOCYTE # 2.5 TH/MM3 (1.0-4.8); MEAN CELL VOLUME 87.7 FL (80.0-100.0); MEAN CORPUSCULAR HEMOGLOBIN 28.7 PG (27.0-34.0); MEAN CORPUSCULAR HGB CONC 32.7 % (32.0-36.0); MEAN PLATELET VOLUME 7.6 FL (7.0-11.0); MONO % 8.2 % (0.0-8.0); MONOCYTE # 0.7 TH/MM3 (0-0.9); NEUT % 57.3 % (16.0-70.0); PLATELET COUNT 266 TH/MM3 (150-450); RED BLOOD COUNT 3.42 MIL/MM3 (4.50-5.90); RED CELL DISTRIBUTION WIDTH 16.7 % (11.6-17.2); WHITE BLOOD COUNT 8.9 TH/MM3 (4.0-11.0)
[2017-12-06 06:55] LABS: ALBUMIN 2.7 GM/DL (3.4-5.0); ALT (GPT) 13 U/L (12-78); AST (GOT) 15 U/L (15-37); BICARBONATE 23.5 MEQ/L (21.0-32.0); BLOOD UREA NITROGEN 15 MG/DL (7-18); CALCIUM 8.8 MG/DL (8.5-10.1); CHLORIDE 108 MEQ/L (98-107); CREATININE 0.94 MG/DL (0.60-1.30); GLOMERULAR FILTRATION RATE 85 ML/MIN (>89); GLUCOSE,RANDOM 79 MG/DL (74-106); SODIUM (NA) 141 MEQ/L (136-145)
[2017-12-06 06:58] LABS: ALKALINE PHOSPHATASE 77 U/L (45-117); TOTAL BILIRUBIN ADULT 0.4 MG/DL (0.2-1.0); TOTAL PROTEIN 7.2 GM/DL (6.4-8.2)
[2017-12-06] MEDS: MUPIROCIN 2% OINT 1 APPLIC/GM SYR NASAL SCH ×2 (07:32→20:31)
[2017-12-06] MEDS: SODIUM CHLORIDE 0.9% FLUSH 10 ML FLUSH IV FLUSH SCH ×2 (07:32→20:31)
[2017-12-06] MEDS: DOCUSATE SODIUM 50 MG/SENNA 8.6 MG TAB PO SCH ×2 (07:32→20:31)
[2017-12-06 08:00] VITALS: BP 116/58; PULSE 80; RESP 18; TEMP 96.9; O2SAT 97
--- NOTE | 2017-12-06 11:37 | HHI.PR ---
Subjective Remarks in no acute distress. no fever. no new complaints. Objective Vitals Vital Signs Date Time Temp Pulse Resp B/P (MAP) Pulse Ox O2 Delivery O2 Flow Rate FiO2 12/06/17 08:00 96.9 80 18 116/58 (77) 97 12/06/17 00:45 96.9 81 17 143/60 (87) 94 12/05/17 19:40 96.7 87 18 116/58 (77) 96 12/05/17 16:00 96.0 82 16 140/63 (88) 98 12/05/17 12:00 96.1 83 16 105/51 (69) 95 I/O 12/05/17 12/05/17 12/05/17 12/06/17 12/06/17 12/06/17 07:00 15:00 23:00 07:00 15:00 23:00 Intake Total 2364 ml 600 ml 800 ml 1594 ml Output Total 800 ml Balance 2364 ml 600 ml 0 ml 1594 ml Intake Oral 600 ml 600 ml 480 ml IV Total 2364 ml 200 ml 1114 ml Output Urine Total 800 ml # Voids 4 1 3 # Bowel Movements 0 1 0 Result Diagram: 12/06/17 0553 12/06/17 0553 Imaging Last Impressions Lower Extremity Ultrasound 11/19/17 0000 Signed Impressions: Service Date/Time: Sunday, November 19, 2017 08:30 - CONCLUSION: Complex fluid collection in the posterior medial soft tissues measuring up to 1.2 cm, correlating with the findings seen on recent MRI. Seth Verma MD Ankle MRI 11/17/17 0000 Signed Impressions: Service Date/Time: Friday, November 17, 2017 21:51 - CONCLUSION: 1. Normal marrow edema with no evidence of osteomyelitis. 2. Soft tissue edema along the medial ankle with 1.2 cm focal area of abnormality which could represent a small abscess or cystic structure. This did not enhance. 3. Mild tenosynovitis involving the flexor digitorum longus tendon, tibialis posterior tendon and peroneus longus tendon Jerad Santos MD Chest CT 11/16/17 0000 Signed Impressions: Service Date/Time: Thursday, November 16, 2017 12:55 - CONCLUSION: 1. Trace right and small left pleural effusions with associated airspace consolidation at the lung bases. Differential considerations include aspiration or pneumonia with reactive effusions versus pleural effusions with compressive atelectasis. 2. Partially imaged right shaped defects in the azygous portions of the spleen which may reflect splenic infarcts. 3. Eccentric aortic valve calcifications consistent with prior history of aortic valve endocarditis. Russell Jose MD Abdomen/Pelvis CT 11/16/17 0000 Signed Impressions: Service Date/Time: Thursday, November 16, 2017 12:57 - CONCLUSION: 1. Stable probable embolic splenic and renal infarcts. 2. No acute abnormality or significant interval change. Specifically, no evidence for drainable abscess in the abdomen. Russell Jose MD Ankle X-Ray 11/14/17 0000 Signed Impressions: Service Date/Time: Tuesday, November 14, 2017 14:00 - CONCLUSION: Unremarkable examination of the right ankle. Valeriy Chapa MD Head CT 11/10/17 1036 Signed Impressions: Service Date/Time: Friday, November 10, 2017 12:16 - CONCLUSION: There is abnormal low density, likely representing cytotoxic edema, in the left frontal lobe. This very likely is related to a recent ischemic event. Reji Dasilva MD Chest X-Ray 11/10/17 1036 Signed Impressions: Service Date/Time: Friday, November 10, 2017 10:54 - CONCLUSION: No acute cardiopulmonary process. Kirby Trejo MD Liver Ultrasound 11/10/17 0000 Signed Impressions: Service Date/Time: Friday, November 10, 2017 14:47 - CONCLUSION: 1. Liver and spleen are both enlarged with multiple diffuse hepatic fatty infiltration. 2. Linear echogenic area within the lateral mid body of the spleen may represent a focal area of scarring. 3. Benign renal cortical cysts of the right kidney. 4. Small 3 mm gallbladder polyp. Gallbladder is otherwise sonographically normal. Kirby Trejo MD Brain MRI 11/10/17 0000 Signed Impressions: Service Date/Time: Friday, November 10, 2017 20:51 - CONCLUSION: The eighth of diminished attenuation involving the left frontoparietal junction on the patient's prior CT examination corresponds to acute infarction in addition to multiple other areas of new acute infarction bilaterally not present on the prior MRI dated 09/10/2017 and previously seen acute infarctions on the right side on that study have been evolved. Findings were discussed with the patient's nurse Chandan on 11/10/2017 9:19 PM. Fernanda Padilla MD Objective Remarks GENERAL: This is a well-nourished, well-developed patient, in no apparent distress. CARDIOVASCULAR: Regular rate and regular rhythm without murmurs, gallops, or rubs. RESPIRATORY: Clear to auscultation. Breath sounds equal bilaterally. No wheezes , rales, or rhonchi. GASTROINTESTINAL: Abdomen soft, non-tender, nondistended. Normal, active bowel sounds MUSCULOSKELETAL: Extremities without clubbing, cyanosis, or edema. NEURO: awake and alert. Medications and IVs Inpatient Medications Acetaminophen (Tylenol Supp) 650 mg ONCE ONCE RECTAL Last administered on 11/10at 11:41; Start 11/10/17 at 11:30; Stop 11/10/17 at 11:31; Status DC Ampicillin Sodium 2000 mg/Sodium Chloride 100 ml @ 400 mls/hr Q4H IV Last administered on 12/06/17at 07:32; Start 11/20/17 at 16:00 Aspirin (Aspirin Supp) 300 mg ONCE ONCE RECTAL Last administered on 11/10/17at 13:21; Start 11/10/17 at 13:00; Stop 11/10/17 at 13:02; Status DC Bisacodyl (Dulcolax Supp) 10 mg DAILY PRN RECTAL SEVERE CONSITIPATION; Start at 14:15 Cefepime HCl 2000 mg/Sodium Chloride 100 ml @ 200 mls/hr Q8H IV Last administered on 12/06/17at 03:24; Start 11/20/17 at 20:00 Diatrizoate Meglum/ Diatrizoate Sod ( Gastroview Liq) 18 ml ONCE ONCE PO Last administered on 11/16/17at 10:04; Start 11/16/17 at 09:15; Stop 11/16/17 at 09:16; Status DC Heparin Sodium (Porcine) (Heparin Inj) 5,000 units Q8H SQ Last administered on 12/06/17at 05:14; Start 11/10/17 at 14:15 Lactulose (Lactulose Liq) 30 ml DAILY PRN PO SEVERE CONSITIPATION; Start at 14:15 Magnesium Hydroxide (Milk Of Magnesia Liq) 30 ml Q12H PRN PO Mild constipation ; Start 11/10/17 at 14:15 Miscellaneous Information SPECIFIC LAB TO BE DRAWN:VANCOMYCIN TROUGH DATE TO... ONCE ONCE .XX Last administered on 11/12/17at 23:50; Start 11/12/17 at 23:45; Stop 11/12/17 at 23:46; Status DC Mupirocin (Bactroban Nasal 2% Oint) 1 applic BID NASAL Last administered on 11/26at 08:31; Start 11/10/17 at 21:00 Naloxone HCl (Narcan Inj) 0.4 mg UNSCH PRN IV PUSH SEE LABEL COMMENTS; Start at 14:15 Pharmacy Profile Note 0 ml @ 0 mls/hr UNSCH OTHER ; Start 11/11/17 at 15:30; Stop 11/15/17 at 08:10; Status DC Senna/Docusate Sodium (Arabella-Colace) 1 tab BID PO Last administered on at 07:32; Start 11/10/17 at 21:00 Sennosides (Senokot) 17.2 mg Q12H PRN PO Moderate constipation; Start 11/10/17 at 14:15 Sodium Chloride 2,000 ml @ 999 mls/hr Q2H1M IV Last administered on 11/10/17at 17:45; Start 11/10/17 at 17:45; Stop 11/10/17 at 19:45; Status DC Sodium Chloride (NS Flush) 2 ml BID IV FLUSH Last administered on 12/06/17at 07: 32; Start 11/10/17 at 21:00 Vancomycin HCl 750 mg/Sodium Chloride 257.5 ml @ 250 mls/hr ONCE ONCE IV Last administered on 11/10/17at 18:48; Start 11/10/17 at 16:00; Stop 11/10/17 at 17:01; Status DC Vancomycin HCl 1000 mg/Sodium Chloride 250 ml @ 250 mls/hr ONCE STAT IV Last administered on 11/10/17at 13:21; Start 11/10/17 at 10:36; Stop 11/10/17 at 11:35 ; Status DC Vancomycin HCl 1250 mg/Sodium Chloride 262.5 ml @ 250 mls/hr Q12H IV Last administered on 11/14/17at 19:49; Start 11/13/17 at 20:00; Stop 11/15/17 at 08:10 ; Status DC A/P Problem List: (1) Bacteremia ICD Code: R78.81 - Bacteremia (2) UTI (urinary tract infection) ICD Code: N39.0 - Urinary tract infection, site not specified (3) CVA (cerebral vascular accident) ICD Code: I63.9 - Cerebral infarction, unspecified (4) Cocaine abuse ICD Code: F14.10 - Cocaine abuse, uncomplicated (5) Aortic valve endocarditis ICD Code: I35.8 - Other nonrheumatic aortic valve disorders Assessment and Plan Aortic valve endocarditis pseudomonas bacteremia septic splenic/renal infarcts Continue on IV antibiotics as per infectious disease on Ampicillin and Cefepime- stop date; 12/23/17 -per ID. CBC, CMP and CRP weekly while on IV antibiotics. 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 Steatosis on liver US -10/29 etoh. f/u PCP Swollen Ankle Xray negative for acute process Ultrasound negative for DVT. No sign of acute ankle infection. Continue to monitor. Ion Exchange Operator was consulted and following. 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 Ion Exchange Operator stated that if there is any worsening of symptoms can reconsult. anemia- of chronic disease H/H stable- will monitor periodically. Social situation. Patient with history of IV drug use, noncompliance. Patient has requested to forego treatment. Per psychiatrist patient does not have the capacity to make medical decisions. DVT prophylaxis -Encourage ambulation. Discharge Planning on IV antibiotics. patient is a self-pay. Aurora Choi MD Dec 06, 2017 11:37
[2017-12-06 12:00] VITALS: BP 123/51; PULSE 85; RESP 18; TEMP 96.4; O2SAT 98
[2017-12-06 16:00] VITALS: BP 125/55; PULSE 79; RESP 18; TEMP 96.1; O2SAT 96
[2017-12-06 20:26] VITALS: BP 118/50; PULSE 89; RESP 16; TEMP 96.8; O2SAT 95
[2017-12-07 00:20] VITALS: BP 112/44; PULSE 83; RESP 17; TEMP 97; O2SAT 96
[2017-12-07] MEDS: AMPICILLIN INJ 2,000 MG in SODIUM CHLORIDE 0.9% INJ 100 ML IV SCH ×6 (00:55→20:13)
[2017-12-07] MEDS: CEFEPIME INJ 2,000 MG in SODIUM CHLORIDE 0.9% INJ 100 ML IV SCH ×3 (04:13→20:13)
[2017-12-07] MEDS: HEPARIN SODIUM - SQ 10,000 UNITS/ML VIAL SQ SCH ×3 (06:15→22:15)
[2017-12-07] MEDS: SODIUM CHLORIDE 0.9% FLUSH 10 ML FLUSH IV FLUSH SCH ×2 (07:59→20:14)
[2017-12-07 08:00] VITALS: BP 117/57; PULSE 85; RESP 18; TEMP 96.3; O2SAT 97
[2017-12-07] MEDS: MUPIROCIN 2% OINT 1 APPLIC/GM SYR NASAL SCH ×2 (09:00→20:14)
[2017-12-07] MEDS: DOCUSATE SODIUM 50 MG/SENNA 8.6 MG TAB PO SCH ×2 (09:00→20:14)
[2017-12-07 11:57] VITALS: BP 124/54; PULSE 84; RESP 18; TEMP 97.8; O2SAT 96
--- NOTE | 2017-12-07 13:03 | HHI.PR ---
Subjective Remarks in no acute distress. denies pain. no fever. no new complaints. Objective Vitals Vital Signs Date Time Temp Pulse Resp B/P (MAP) Pulse Ox O2 Delivery O2 Flow Rate FiO2 12/07/17 11:57 97.8 84 18 124/54 (77) 96 12/07/17 08:00 96.3 85 18 117/57 (77) 97 12/07/17 00:20 97.0 83 17 112/44 (66) 96 12/06/17 20:26 96.8 89 16 118/50 (72) 95 12/06/17 16:00 96.1 79 18 125/55 (78) 96 I/O 12/06/17 12/06/17 12/06/17 12/07/17 12/07/17 12/07/17 07:00 15:00 23:00 07:00 15:00 23:00 Intake Total 1594 ml 820 ml 360 ml 480 ml Balance 1594 ml 820 ml 360 ml 480 ml Intake Oral 480 ml 720 ml 360 ml 480 ml IV Total 1114 ml 100 ml # Voids 3 3 2 2 # Bowel Movements 0 1 0 0 Result Diagram: 12/06/17 0553 12/06/17 0553 Imaging Last Impressions Lower Extremity Ultrasound 11/19/17 0000 Signed Impressions: Service Date/Time: Sunday, November 19, 2017 08:30 - CONCLUSION: Complex fluid collection in the posterior medial soft tissues measuring up to 1.2 cm, correlating with the findings seen on recent MRI. Seth Verma MD Ankle MRI 11/17/17 0000 Signed Impressions: Service Date/Time: Friday, November 17, 2017 21:51 - CONCLUSION: 1. Normal marrow edema with no evidence of osteomyelitis. 2. Soft tissue edema along the medial ankle with 1.2 cm focal area of abnormality which could represent a small abscess or cystic structure. This did not enhance. 3. Mild tenosynovitis involving the flexor digitorum longus tendon, tibialis posterior tendon and peroneus longus tendon Jerad Santos MD Chest CT 11/16/17 0000 Signed Impressions: Service Date/Time: Thursday, November 16, 2017 12:55 - CONCLUSION: 1. Trace right and small left pleural effusions with associated airspace consolidation at the lung bases. Differential considerations include aspiration or pneumonia with reactive effusions versus pleural effusions with compressive atelectasis. 2. Partially imaged right shaped defects in the azygous portions of the spleen which may reflect splenic infarcts. 3. Eccentric aortic valve calcifications consistent with prior history of aortic valve endocarditis. Russell Jose MD Abdomen/Pelvis CT 11/16/17 0000 Signed Impressions: Service Date/Time: Thursday, November 16, 2017 12:57 - CONCLUSION: 1. Stable probable embolic splenic and renal infarcts. 2. No acute abnormality or significant interval change. Specifically, no evidence for drainable abscess in the abdomen. Russell Jose MD Ankle X-Ray 11/14/17 0000 Signed Impressions: Service Date/Time: Tuesday, November 14, 2017 14:00 - CONCLUSION: Unremarkable examination of the right ankle. Valeriy Chapa MD Head CT 11/10/17 1036 Signed Impressions: Service Date/Time: Friday, November 10, 2017 12:16 - CONCLUSION: There is abnormal low density, likely representing cytotoxic edema, in the left frontal lobe. This very likely is related to a recent ischemic event. Reji Dasilva MD Chest X-Ray 11/10/17 1036 Signed Impressions: Service Date/Time: Friday, November 10, 2017 10:54 - CONCLUSION: No acute cardiopulmonary process. Kirby Trejo MD Liver Ultrasound 11/10/17 0000 Signed Impressions: Service Date/Time: Friday, November 10, 2017 14:47 - CONCLUSION: 1. Liver and spleen are both enlarged with multiple diffuse hepatic fatty infiltration. 2. Linear echogenic area within the lateral mid body of the spleen may represent a focal area of scarring. 3. Benign renal cortical cysts of the right kidney. 4. Small 3 mm gallbladder polyp. Gallbladder is otherwise sonographically normal. Kirby Trejo MD Brain MRI 11/10/17 0000 Signed Impressions: Service Date/Time: Friday, November 10, 2017 20:51 - CONCLUSION: The eighth of diminished attenuation involving the left frontoparietal junction on the patient's prior CT examination corresponds to acute infarction in addition to multiple other areas of new acute infarction bilaterally not present on the prior MRI dated 09/10/2017 and previously seen acute infarctions on the right side on that study have been evolved. Findings were discussed with the patient's nurse Chandan on 11/10/2017 9:19 PM. Fernanda Padilla MD Objective Remarks GENERAL: This is a well-nourished, well-developed patient, in no apparent distress. CARDIOVASCULAR: Regular rate and regular rhythm without murmurs, gallops, or rubs. RESPIRATORY: Clear to auscultation. Breath sounds equal bilaterally. No wheezes , rales, or rhonchi. GASTROINTESTINAL: Abdomen soft, non-tender, nondistended. Normal, active bowel sounds MUSCULOSKELETAL: Extremities without clubbing, cyanosis, or edema. NEURO: awake and alert. Medications and IVs Inpatient Medications Acetaminophen (Tylenol Supp) 650 mg ONCE ONCE RECTAL Last administered on 11/10at 11:41; Start 11/10/17 at 11:30; Stop 11/10/17 at 11:31; Status DC Ampicillin Sodium 2000 mg/Sodium Chloride 100 ml @ 400 mls/hr Q4H IV Last administered on 12/07/17at 11:58; Start 11/20/17 at 16:00 Aspirin (Aspirin Supp) 300 mg ONCE ONCE RECTAL Last administered on 11/10/17at 13:21; Start 11/10/17 at 13:00; Stop 11/10/17 at 13:02; Status DC Bisacodyl (Dulcolax Supp) 10 mg DAILY PRN RECTAL SEVERE CONSITIPATION; Start at 14:15 Cefepime HCl 2000 mg/Sodium Chloride 100 ml @ 200 mls/hr Q8H IV Last administered on 12/07/17at 11:57; Start 11/20/17 at 20:00 Diatrizoate Meglum/ Diatrizoate Sod ( Gastroview Liq) 18 ml ONCE ONCE PO Last administered on 11/16/17at 10:04; Start 11/16/17 at 09:15; Stop 11/16/17 at 09:16; Status DC Heparin Sodium (Porcine) (Heparin Inj) 5,000 units Q8H SQ Last administered on 12/07/17at 06:15; Start 11/10/17 at 14:15 Lactulose (Lactulose Liq) 30 ml DAILY PRN PO SEVERE CONSITIPATION; Start at 14:15 Magnesium Hydroxide (Milk Of Magnesia Liq) 30 ml Q12H PRN PO Mild constipation ; Start 11/10/17 at 14:15 Miscellaneous Information SPECIFIC LAB TO BE DRAWN:VANCOMYCIN TROUGH DATE TO... ONCE ONCE .XX Last administered on 11/12/17at 23:50; Start 11/12/17 at 23:45; Stop 11/12/17 at 23:46; Status DC Mupirocin (Bactroban Nasal 2% Oint) 1 applic BID NASAL Last administered on 11/26at 08:31; Start 11/10/17 at 21:00 Naloxone HCl (Narcan Inj) 0.4 mg UNSCH PRN IV PUSH SEE LABEL COMMENTS; Start at 14:15 Pharmacy Profile Note 0 ml @ 0 mls/hr UNSCH OTHER ; Start 11/11/17 at 15:30; Stop 11/15/17 at 08:10; Status DC Senna/Docusate Sodium (Arabella-Colace) 1 tab BID PO Last administered on at 07:32; Start 11/10/17 at 21:00 Sennosides (Senokot) 17.2 mg Q12H PRN PO Moderate constipation; Start 11/10/17 at 14:15 Sodium Chloride 2,000 ml @ 999 mls/hr Q2H1M IV Last administered on 11/10/17at 17:45; Start 11/10/17 at 17:45; Stop 11/10/17 at 19:45; Status DC Sodium Chloride (NS Flush) 2 ml BID IV FLUSH Last administered on 12/07/17at 07: 59; Start 11/10/17 at 21:00 Vancomycin HCl 750 mg/Sodium Chloride 257.5 ml @ 250 mls/hr ONCE ONCE IV Last administered on 11/10/17at 18:48; Start 11/10/17 at 16:00; Stop 11/10/17 at 17:01; Status DC Vancomycin HCl 1000 mg/Sodium Chloride 250 ml @ 250 mls/hr ONCE STAT IV Last administered on 11/10/17at 13:21; Start 11/10/17 at 10:36; Stop 11/10/17 at 11:35 ; Status DC Vancomycin HCl 1250 mg/Sodium Chloride 262.5 ml @ 250 mls/hr Q12H IV Last administered on 11/14/17at 19:49; Start 11/13/17 at 20:00; Stop 11/15/17 at 08:10 ; Status DC A/P Problem List: (1) Bacteremia ICD Code: R78.81 - Bacteremia (2) UTI (urinary tract infection) ICD Code: N39.0 - Urinary tract infection, site not specified (3) CVA (cerebral vascular accident) ICD Code: I63.9 - Cerebral infarction, unspecified (4) Cocaine abuse ICD Code: F14.10 - Cocaine abuse, uncomplicated (5) Aortic valve endocarditis ICD Code: I35.8 - Other nonrheumatic aortic valve disorders Assessment and Plan Aortic valve endocarditis pseudomonas bacteremia septic splenic/renal infarcts Continue on IV antibiotics as per infectious disease on Ampicillin and Cefepime- stop date; 12/23/17 -per ID. CBC, CMP and CRP weekly while on IV antibiotics. 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 Steatosis on liver US -10/29 etoh. f/u PCP Swollen Ankle Xray negative for acute process Ultrasound negative for DVT. No sign of acute ankle infection. Continue to monitor. Flooring Machine Feeder was consulted and following. Per smelter charger recommend compress elevate and continue warm compress with continued ABXs since ankle is improving. Flooring Machine Feeder stated that if there is any worsening of symptoms can reconsult. anemia- of chronic disease H/H stable- will monitor periodically. Social situation. Patient with history of IV drug use, noncompliance. Patient has requested to forego treatment. Per psychiatrist patient does not have the capacity to make medical decisions. DVT prophylaxis -Encourage ambulation. Discharge Planning on IV antibiotics. patient is a self-pay. Aurora Choi MD Dec 07, 2017 13:03
--- NOTE | 2017-12-07 15:30 | HHI.HCPN ---
Reason for visit a. To assist with evaluation and management of symptoms including: confusion b. To assist medical decision maker(s) with: better understanding of current medical conditions; weighing benefits/burdens of medical treatment options; making medical treatment decisions. Subjective/Interval History Pt seen today to follow up on comfort, goals. Stable. Cont IV antibiotics cefepime, ampicillin.(last BC 11/13, neg) CBC, chemistry from 12/06 stable/baseline. ST following, signed off as of today, pt speech much improved. Recommended for regular diet. Pt seen in room no visitors present. Expression much better than my prior interactions with him, speaking in complete sentences, swears frequently. He is oriented, appropriate, appears to have some limited insight to hospitalization. He does state he is not sure why he has to be in the hospital for so long and is still not sure that treatment is actually helping him. 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 Explore that he has required prolonged antibiotics d/t endocarditis, also explore embolic events/complications he has sustained. He does not appear to fully comprehend the gravity of his overall condition/prognosis. He is in agreement to continue with in pt tx in hospital though is very anxious to be d/ c. He verbalizes frustration with trying to order a diet tray, diet has been changed to regular as of today, but apparently change has not been recived by intake yet as they are not allowing him to place order. Advise I will f/up w nursing to assist. Offer to update his mother, he tells me she was in to see him yesterday. He denies any complaints other than food order issues. Reports good appetite. No n/v. Denies pain, pain to rt ankle has resolved. Reports no edema. No headache. Reports speech improved, no difficulty expressing his thoughts. . Advance Directives Living Will: Never completed Health Care Surrogate: Copy in medical record Durable Power of Watch Supervisor: Never completed Objective Vital Signs Date Time Temp Pulse Resp B/P (MAP) Pulse Ox O2 Delivery O2 Flow Rate FiO2 12/07/17 11:57 97.8 84 18 124/54 (77) 96 12/07/17 08:00 96.3 85 18 117/57 (77) 97 12/07/17 00:20 97.0 83 17 112/44 (66) 96 12/06/17 20:26 96.8 89 16 118/50 (72) 95 12/06/17 16:00 96.1 79 18 125/55 (78) 96 Intake & Output 12/07/17 12/07/17 07:00 19:00 Intake Total 840 ml 720 ml Balance 840 ml 720 ml Intake Oral 840 ml 720 ml # Voids 4 4 # Bowel Movements 0 1 Physical Exam CONSTITUTIONAL/GENERAL: This is an adequately nourished patient,alert mostly oriented TUBES/LINES/DRAINS:PIV UE. SKIN: No jaundice, rashes, or lesions. No wounds seen anteriorly. Skin warm/dry HEAD: Atraumatic. Normocephalic. CARDIOVASCULAR: Regular rate and rhythm without murmur. Peripheral pulses symmetric.no peripheral edema RESPIRATORY/CHEST: Symmetric, unlabored respirations on room air. Clear to auscultation. Breath sounds equal bilaterally. GASTROINTESTINAL: Abdomen soft,flat, nondistended. Bowel sounds present. MUSCULOSKELETAL: Extremities without clubbing, cyanosis. no edema. +thin. NEUROLOGICAL: Awake and alert.Oriented x2-3. speaks in complete sentences, limited insight to conditions/hospitalization. Moves all 4 extremities. PSYCHIATRIC: no apparent hallucinations or other psychotic thought process. Diagnostic Tests Laboratory Laboratory Tests Test 12/06/17 05:53 White Blood Count 8.9 TH/MM3 (4.0-11.0) Red Blood Count 3.42 MIL/MM3 (4.50-5.90) Hemoglobin 9.8 GM/DL (13.0-17.0) Hematocrit 29.9 % (39.0-51.0) Mean Corpuscular Volume 87.7 FL (80.0-100.0) Mean Corpuscular Hemoglobin 28.7 PG (27.0-34.0) Mean Corpuscular Hemoglobin Concent 32.7 % (32.0-36.0) Red Cell Distribution Width 16.7 % (11.6-17.2) Platelet Count 266 TH/MM3 (150-450) Mean Platelet Volume 7.6 FL (7.0-11.0) Neutrophils (%) (Auto) 57.3 % (16.0-70.0) Lymphocytes (%) (Auto) 28.3 % (9.0-44.0) Monocytes (%) (Auto) 8.2 % (0.0-8.0) Eosinophils (%) (Auto) 5.3 % (0.0-4.0) Basophils (%) (Auto) 0.9 % (0.0-2.0) Neutrophils # (Auto) 5.1 TH/MM3 (1.8-7.7) Lymphocytes # (Auto) 2.5 TH/MM3 (1.0-4.8) Monocytes # (Auto) 0.7 TH/MM3 (0-0.9) Eosinophils # (Auto) 0.5 TH/MM3 (0-0.4) Basophils # (Auto) 0.1 TH/MM3 (0-0.2) CBC Comment DIFF FINAL Differential Comment Hematology Comments Blood Urea Nitrogen 15 MG/DL (7-18) Creatinine 0.94 MG/DL (0.60-1.30) Random Glucose 79 MG/DL (74-106) Total Protein 7.2 GM/DL (6.4-8.2) Albumin 2.7 GM/DL (3.4-5.0) Calcium Level 8.8 MG/DL (8.5-10.1) Alkaline Phosphatase 77 U/L (45-117) Aspartate Amino Transf (AST/SGOT) 15 U/L (15-37) Alanine Aminotransferase (ALT/SGPT) 13 U/L (12-78) Total Bilirubin 0.4 MG/DL (0.2-1.0) Sodium Level 141 MEQ/L (136-145) Potassium Level 3.6 MEQ/L (3.5-5.1) Chloride Level 108 MEQ/L (98-107) Carbon Dioxide Level 23.5 MEQ/L (21.0-32.0) Anion Gap 10 MEQ/L (5-15) Estimat Glomerular Filtration Rate 85 ML/MIN (>89) C-Reactive Protein 2.50 MG/DL (0.00-0.30) Result Diagram: 12/06/17 0553 12/06/17 0553 Microbiology Microbiology Date/Time Source Procedure Growth Status 11/13/17 05:45 Blood Peripheral Aerobic Blood Culture - Final NO GROWTH IN 5 DAYS Complete 11/13/17 05:45 Blood Peripheral Anaerobic Blood Culture - Final NO GROWTH IN 5 DAYS Complete 11/10/17 11:15 Nasal Washing Influenza Types A,B Antigen (SERENITY) - Final NEGATIVE FOR FLU A AND B ANTIGEN.... Complete 11/10/17 14:20 Urine Catheterized Urine Urine Culture - Final NO GROWTH IN 48 HOURS. Complete Imaging Last Impressions Lower Extremity Ultrasound 11/19/17 0000 Signed Impressions: Service Date/Time: Sunday, November 19, 2017 08:30 - CONCLUSION: Complex fluid collection in the posterior medial soft tissues measuring up to 1.2 cm, correlating with the findings seen on recent MRI. Seth Verma MD Ankle MRI 11/17/17 0000 Signed Impressions: Service Date/Time: Friday, November 17, 2017 21:51 - CONCLUSION: 1. Normal marrow edema with no evidence of osteomyelitis. 2. Soft tissue edema along the medial ankle with 1.2 cm focal area of abnormality which could represent a small abscess or cystic structure. This did not enhance. 3. Mild tenosynovitis involving the flexor digitorum longus tendon, tibialis posterior tendon and peroneus longus tendon Jerad Santos MD Chest CT 11/16/17 0000 Signed Impressions: Service Date/Time: Thursday, November 16, 2017 12:55 - CONCLUSION: 1. Trace right and small left pleural effusions with associated airspace consolidation at the lung bases. Differential considerations include aspiration or pneumonia with reactive effusions versus pleural effusions with compressive atelectasis. 2. Partially imaged right shaped defects in the azygous portions of the spleen which may reflect splenic infarcts. 3. Eccentric aortic valve calcifications consistent with prior history of aortic valve endocarditis. Russell Jose MD Abdomen/Pelvis CT 11/16/17 0000 Signed Impressions: Service Date/Time: Thursday, November 16, 2017 12:57 - CONCLUSION: 1. Stable probable embolic splenic and renal infarcts. 2. No acute abnormality or significant interval change. Specifically, no evidence for drainable abscess in the abdomen. Russell Jose MD Ankle X-Ray 11/14/17 0000 Signed Impressions: Service Date/Time: Tuesday, November 14, 2017 14:00 - CONCLUSION: Unremarkable examination of the right ankle. Valeriy Chapa MD Head CT 11/10/17 1036 Signed Impressions: Service Date/Time: Friday, November 10, 2017 12:16 - CONCLUSION: There is abnormal low density, likely representing cytotoxic edema, in the left frontal lobe. This very likely is related to a recent ischemic event. Reij Dasilva MD Chest X-Ray 11/10/17 1036 Signed Impressions: Service Date/Time: Friday, November 10, 2017 10:54 - CONCLUSION: No acute cardiopulmonary process. Kirby Trejo MD Liver Ultrasound 11/10/17 0000 Signed Impressions: Service Date/Time: Friday, November 10, 2017 14:47 - CONCLUSION: 1. Liver and spleen are both enlarged with multiple diffuse hepatic fatty infiltration. 2. Linear echogenic area within the lateral mid body of the spleen may represent a focal area of scarring. 3. Benign renal cortical cysts of the right kidney. 4. Small 3 mm gallbladder polyp. Gallbladder is otherwise sonographically normal. Kirby Trejo MD Brain MRI 11/10/17 0000 Signed Impressions: Service Date/Time: Friday, November 10, 2017 20:51 - CONCLUSION: The eighth of diminished attenuation involving the left frontoparietal junction on the patient's prior CT examination corresponds to acute infarction in addition to multiple other areas of new acute infarction bilaterally not present on the prior MRI dated 09/10/2017 and previously seen acute infarctions on the right side on that study have been evolved. Findings were discussed with the patient's nurse Chandan on 11/10/2017 9:19 PM. Fernanda Padlila MD Assessment and Plan Disease Oriented Problem List: (1) Severe sepsis (2) CVA (cerebral vascular accident) (3) Cocaine abuse (4) Aortic valve endocarditis (5) Bacteremia Symptom Scale: (1) Confusion (2) Pain Pertinent Non-Medical Issues Psychosocial: Spiritual: Legal:Pt admitted w confusion, aphasia. S/p recent CVA, + new areas infarct. Mental status fluctuates. Not clear he has full insight and ability to make decisions, though he may be able to participate in shared decision making. Psych eval pending. Mother is designated HCS. Ethical issues impacting care:no ethical issues identified Important Contacts Mother Bhargavi Wallis [phone] daughter Agnes [phone] . Prognosis This pt was admitted for AMS, fever. He has findings of new (septic emboli) CVA , endocarditis, ongoing IV tx per ID. Pt remains very high risk for ongoing complications secondary to infectious process, even with ongoing aggressive treatment. . Code Status: No Code Plan * Legal decision maker:Pt admitted w confusion, aphasia. S/p recent CVA, + new areas infarct. Mental status fluctuates. Not clear he has full insight and ability to make decision. Psych eval completed, pt not capacitated to make his decisions at this time. Mother is designated HCS. Pt neurological status slowly improving, he may regain ability to participate in decision making. . * Goals: Goals remain aggressive short of resuscitation. Pt mother does not feel he has good understanding of his conditions/needed treatments. She does not feel he will be able to care for himself. She is not able to be a primary caregiver for him, and is not certain that his daughter will be able to either, as she works multimedia producer and has a toddler. 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 Pt in agreement to continue in patient abx and hospitalization . * CODE STATUS: DNR * SYMPTOMS: --confusion/AMS- recent CVA, + new embolic CVA this admission. mental status fluctuates. Hx drug abuse, "none recently". --pain- Prev w Pain to [facility] , imaging negative, edema improved, s/p podiatry eval. denies pain on my visit. * Palliative care will continue to follow during hospital course as condition evolves, to assist patient/decision-maker with understanding of medical conditions, weighing benefits/burdens of treatment options, for clarification of goals of treatment. Additionally will assist with any symptoms of palliative concern . Attestation To help prompt me to consider important information that might be impacting today's encounter and assessment, information from prior notes written by myself or my colleagues may have been "brought forward" into today's note. My signature on this note, however, is an attestation that I personally performed the exam, history, and/or decision-making noted today, and, unless otherwise indicated, the interactions with patient, family, and staff as well as the review of records all occurred today. I also attest that the listed assessment and stated plan reflect my best clinical judgment today based on the combination of historical information, prior notes, and today's exam/ interactions. When time spent is documented, it refers only to time spent today by the signer, or if indicated, combined time spent today by collaborating physician/nurse practitioner. Ana Rodarte Dec 07, 2017 15:30
[2017-12-07 16:00] VITALS: BP 124/51; PULSE 87; RESP 18; TEMP 97.2; O2SAT 97
[2017-12-07 20:00] VITALS: BP 120/59; PULSE 82; RESP 18; TEMP 97.9; O2SAT 95
[2017-12-08] VITALS: BP 124/69; PULSE 84; RESP 18; TEMP 98.1; O2SAT 92
[2017-12-08] MEDS: AMPICILLIN INJ 2,000 MG in SODIUM CHLORIDE 0.9% INJ 100 ML IV SCH ×8 (04:50→23:53)
[2017-12-08] MEDS: CEFEPIME INJ 2,000 MG in SODIUM CHLORIDE 0.9% INJ 100 ML IV SCH ×3 (04:51→19:54)
[2017-12-08] MEDS: HEPARIN SODIUM - SQ 10,000 UNITS/ML VIAL SQ SCH ×3 (04:56→21:29)
[2017-12-08 08:07] VITALS: BP 140/58; PULSE 83; RESP 18; TEMP 96.6; O2SAT 95
[2017-12-08] MEDS: SODIUM CHLORIDE 0.9% FLUSH 10 ML FLUSH IV FLUSH SCH ×2 (08:35→19:54)
[2017-12-08] MEDS: MUPIROCIN 2% OINT 1 APPLIC/GM SYR NASAL SCH ×2 (08:35→19:54)
[2017-12-08] MEDS: DOCUSATE SODIUM 50 MG/SENNA 8.6 MG TAB PO SCH ×2 (08:39→19:54)
[2017-12-08 11:27] VITALS: BP 127/60; PULSE 86; RESP 24; TEMP 98.1
--- NOTE | 2017-12-08 12:22 | HHI.PR ---
Subjective Remarks in no acute distress. is comfortable with no pain. no fever. d/w the RN and no acute issues over night. Objective Vitals Vital Signs Date Time Temp Pulse Resp B/P (MAP) Pulse Ox O2 Delivery O2 Flow Rate FiO2 12/08/17 11:27 98.1 86 24 127/60 (82) 12/08/17 08:07 96.6 83 18 140/58 (85) 95 12/08/17 00:00 98.1 84 18 124/69 (87) 92 12/07/17 20:00 97.9 82 18 120/59 (79) 95 12/07/17 16:00 97.2 87 18 124/51 (75) 97 I/O 12/07/17 12/07/17 12/07/17 12/08/17 12/08/17 12/08/17 07:00 15:00 23:00 07:00 15:00 23:00 Intake Total 480 ml 720 ml 240 ml 240 ml Balance 480 ml 720 ml 240 ml 240 ml Intake Oral 480 ml 720 ml 240 ml 240 ml # Voids 2 4 3 1 # Bowel Movements 0 1 0 0 Result Diagram: 12/06/17 0553 12/06/17 0553 Imaging Last Impressions Lower Extremity Ultrasound 11/19/17 0000 Signed Impressions: Service Date/Time: Sunday, November 19, 2017 08:30 - CONCLUSION: Complex fluid collection in the posterior medial soft tissues measuring up to 1.2 cm, correlating with the findings seen on recent MRI. Seth Verma MD Ankle MRI 11/17/17 0000 Signed Impressions: Service Date/Time: Friday, November 17, 2017 21:51 - CONCLUSION: 1. Normal marrow edema with no evidence of osteomyelitis. 2. Soft tissue edema along the medial ankle with 1.2 cm focal area of abnormality which could represent a small abscess or cystic structure. This did not enhance. 3. Mild tenosynovitis involving the flexor digitorum longus tendon, tibialis posterior tendon and peroneus longus tendon Jerad Santos MD Chest CT 11/16/17 0000 Signed Impressions: Service Date/Time: Thursday, November 16, 2017 12:55 - CONCLUSION: 1. Trace right and small left pleural effusions with associated airspace consolidation at the lung bases. Differential considerations include aspiration or pneumonia with reactive effusions versus pleural effusions with compressive atelectasis. 2. Partially imaged right shaped defects in the azygous portions of the spleen which may reflect splenic infarcts. 3. Eccentric aortic valve calcifications consistent with prior history of aortic valve endocarditis. Russell Jose MD Abdomen/Pelvis CT 11/16/17 0000 Signed Impressions: Service Date/Time: Thursday, November 16, 2017 12:57 - CONCLUSION: 1. Stable probable embolic splenic and renal infarcts. 2. No acute abnormality or significant interval change. Specifically, no evidence for drainable abscess in the abdomen. Russell Jose MD Ankle X-Ray 11/14/17 0000 Signed Impressions: Service Date/Time: Tuesday, November 14, 2017 14:00 - CONCLUSION: Unremarkable examination of the right ankle. Valeriy Cahpa MD Head CT 11/10/17 1036 Signed Impressions: Service Date/Time: Friday, November 10, 2017 12:16 - CONCLUSION: There is abnormal low density, likely representing cytotoxic edema, in the left frontal lobe. This very likely is related to a recent ischemic event. Reji Dasilva MD Chest X-Ray 11/10/17 1036 Signed Impressions: Service Date/Time: Friday, November 10, 2017 10:54 - CONCLUSION: No acute cardiopulmonary process. Kirby Trejo MD Liver Ultrasound 11/10/17 0000 Signed Impressions: Service Date/Time: Friday, November 10, 2017 14:47 - CONCLUSION: 1. Liver and spleen are both enlarged with multiple diffuse hepatic fatty infiltration. 2. Linear echogenic area within the lateral mid body of the spleen may represent a focal area of scarring. 3. Benign renal cortical cysts of the right kidney. 4. Small 3 mm gallbladder polyp. Gallbladder is otherwise sonographically normal. Kirby Trejo MD Brain MRI 11/10/17 0000 Signed Impressions: Service Date/Time: Friday, November 10, 2017 20:51 - CONCLUSION: The eighth of diminished attenuation involving the left frontoparietal junction on the patient's prior CT examination corresponds to acute infarction in addition to multiple other areas of new acute infarction bilaterally not present on the prior MRI dated 09/10/2017 and previously seen acute infarctions on the right side on that study have been evolved. Findings were discussed with the patient's nurse Chandan on 11/10/2017 9:19 PM. Fernanda Padilla MD Objective Remarks GENERAL: This is a well-nourished, well-developed patient, in no apparent distress. CARDIOVASCULAR: Regular rate and regular rhythm without murmurs, gallops, or rubs. RESPIRATORY: Clear to auscultation. Breath sounds equal bilaterally. No wheezes , rales, or rhonchi. GASTROINTESTINAL: Abdomen soft, non-tender, nondistended. Normal, active bowel sounds MUSCULOSKELETAL: Extremities without clubbing, cyanosis, or edema. NEURO: awake and alert. Medications and IVs Inpatient Medications Acetaminophen (Tylenol Supp) 650 mg ONCE ONCE RECTAL Last administered on 11/10at 11:41; Start 11/10/17 at 11:30; Stop 11/10/17 at 11:31; Status DC Ampicillin Sodium 2000 mg/Sodium Chloride 100 ml @ 400 mls/hr Q4H IV Last administered on 12/08/17at 08:33; Start 11/20/17 at 16:00 Aspirin (Aspirin Supp) 300 mg ONCE ONCE RECTAL Last administered on 11/10/17at 13:21; Start 11/10/17 at 13:00; Stop 11/10/17 at 13:02; Status DC Bisacodyl (Dulcolax Supp) 10 mg DAILY PRN RECTAL SEVERE CONSITIPATION; Start at 14:15 Cefepime HCl 2000 mg/Sodium Chloride 100 ml @ 200 mls/hr Q8H IV Last administered on 12/08/17at 04:51; Start 11/20/17 at 20:00 Diatrizoate Meglum/ Diatrizoate Sod ( Gastroview Liq) 18 ml ONCE ONCE PO Last administered on 11/16/17at 10:04; Start 11/16/17 at 09:15; Stop 11/16/17 at 09:16; Status DC Heparin Sodium (Porcine) (Heparin Inj) 5,000 units Q8H SQ Last administered on 12/08/17at 04:56; Start 11/10/17 at 14:15 Lactulose (Lactulose Liq) 30 ml DAILY PRN PO SEVERE CONSITIPATION; Start at 14:15 Magnesium Hydroxide (Milk Of Magnesia Liq) 30 ml Q12H PRN PO Mild constipation ; Start 11/10/17 at 14:15 Miscellaneous Information SPECIFIC LAB TO BE DRAWN:VANCOMYCIN TROUGH DATE TO... ONCE ONCE .XX Last administered on 11/12/17at 23:50; Start 11/12/17 at 23:45; Stop 11/12/17 at 23:46; Status DC Mupirocin (Bactroban Nasal 2% Oint) 1 applic BID NASAL Last administered on 11/26at 08:31; Start 11/10/17 at 21:00 Naloxone HCl (Narcan Inj) 0.4 mg UNSCH PRN IV PUSH SEE LABEL COMMENTS; Start at 14:15 Pharmacy Profile Note 0 ml @ 0 mls/hr UNSCH OTHER ; Start 11/11/17 at 15:30; Stop 11/15/17 at 08:10; Status DC Senna/Docusate Sodium (Arabella-Colace) 1 tab BID PO Last administered on at 07:32; Start 11/10/17 at 21:00 Sennosides (Senokot) 17.2 mg Q12H PRN PO Moderate constipation; Start 11/10/17 at 14:15 Sodium Chloride 2,000 ml @ 999 mls/hr Q2H1M IV Last administered on 11/10/17at 17:45; Start 11/10/17 at 17:45; Stop 11/10/17 at 19:45; Status DC Sodium Chloride (NS Flush) 2 ml BID IV FLUSH Last administered on 12/08/17at 08: 35; Start 11/10/17 at 21:00 Vancomycin HCl 750 mg/Sodium Chloride 257.5 ml @ 250 mls/hr ONCE ONCE IV Last administered on 11/10/17at 18:48; Start 11/10/17 at 16:00; Stop 11/10/17 at 17:01; Status DC Vancomycin HCl 1000 mg/Sodium Chloride 250 ml @ 250 mls/hr ONCE STAT IV Last administered on 11/10/17at 13:21; Start 11/10/17 at 10:36; Stop 11/10/17 at 11:35 ; Status DC Vancomycin HCl 1250 mg/Sodium Chloride 262.5 ml @ 250 mls/hr Q12H IV Last administered on 11/14/17at 19:49; Start 11/13/17 at 20:00; Stop 11/15/17 at 08:10 ; Status DC A/P Problem List: (1) Bacteremia ICD Code: R78.81 - Bacteremia (2) UTI (urinary tract infection) ICD Code: N39.0 - Urinary tract infection, site not specified (3) CVA (cerebral vascular accident) ICD Code: I63.9 - Cerebral infarction, unspecified (4) Cocaine abuse ICD Code: F14.10 - Cocaine abuse, uncomplicated (5) Aortic valve endocarditis ICD Code: I35.8 - Other nonrheumatic aortic valve disorders Assessment and Plan Aortic valve endocarditis pseudomonas/ Enterococcus Faecalis bacteremia septic splenic/renal infarcts Continue on IV antibiotics as per infectious disease on Ampicillin and Cefepime- stop date; 12/23/17 -per ID. CBC, CMP and CRP weekly while on IV antibiotics. 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 Steatosis on liver US -10/29 etoh. f/u PCP Swollen Ankle Xray negative for acute process Ultrasound negative for DVT. No sign of acute ankle infection. Continue to monitor. Cabinet And Trim Installer was consulted and following. Per birth attendant recommend compress elevate and continue warm compress with continued ABXs since ankle is improving. Cabinet And Trim Installer stated that if there is any worsening of symptoms can reconsult. anemia- of chronic disease H/H stable- will monitor periodically. Social situation. Patient with history of IV drug use, noncompliance. Patient has requested to forego treatment. Per psychiatrist patient does not have the capacity to make medical decisions. psych will be reconsulted for follow-up. d/w today. DVT prophylaxis -Encourage ambulation. Discharge Planning on IV antibiotics. patient is a self-pay. Aurora Choi MD Dec 08, 2017 12:22
[2017-12-08 15:43] VITALS: BP 134/52; PULSE 85; RESP 18; TEMP 98.8; O2SAT 94
[2017-12-08 19:52] VITALS: BP 126/60; PULSE 82; RESP 18; TEMP 96.7; O2SAT 94
[2017-12-09 00:32] VITALS: BP 120/53; PULSE 80; RESP 18; TEMP 96.7; O2SAT 95
[2017-12-09] MEDS: CEFEPIME INJ 2,000 MG in SODIUM CHLORIDE 0.9% INJ 100 ML IV SCH ×3 (04:11→22:02)
[2017-12-09] MEDS: AMPICILLIN INJ 2,000 MG in SODIUM CHLORIDE 0.9% INJ 100 ML IV SCH ×5 (04:11→20:47)
[2017-12-09] MEDS: HEPARIN SODIUM - SQ 10,000 UNITS/ML VIAL SQ SCH ×3 (04:12→22:07)
[2017-12-09] MEDS: DOCUSATE SODIUM 50 MG/SENNA 8.6 MG TAB PO SCH ×2 (07:37→20:51)
[2017-12-09] MEDS: SODIUM CHLORIDE 0.9% FLUSH 10 ML FLUSH IV FLUSH SCH ×2 (07:37→20:47)
[2017-12-09] MEDS: MUPIROCIN 2% OINT 1 APPLIC/GM SYR NASAL SCH ×2 (07:37→20:47)
[2017-12-09 07:45] VITALS: BP 124/50; PULSE 81; RESP 18; TEMP 96.7; O2SAT 95
--- NOTE | 2017-12-09 11:16 | HHI.PR ---
Subjective Remarks Follow-up aortic valve endocarditis, Pseudomonas bacteremia and sepsis. Patient seen and examined, lying in bed in no apparent distress. Denies any pain. Eating well. He relating well. No new complaints overnight, vital signs are stable. Afebrile. Objective Vitals Vital Signs Date Time Temp Pulse Resp B/P (MAP) Pulse Ox O2 Delivery O2 Flow Rate FiO2 12/09/17 07:45 96.7 81 18 124/50 (74) 95 12/09/17 00:32 96.7 80 18 120/53 (75) 95 12/08/17 19:52 96.7 82 18 126/60 (82) 94 12/08/17 15:43 98.8 85 18 134/52 (79) 94 12/08/17 11:27 98.1 86 24 127/60 (82) I/O 12/08/17 12/08/17 12/08/17 12/09/17 12/09/17 12/09/17 07:00 15:00 23:00 07:00 15:00 23:00 Intake Total 240 ml 680 ml 580 ml Balance 240 ml 680 ml 580 ml Intake Oral 240 ml 480 ml 480 ml IV Total 200 ml 100 ml # Voids 1 3 1 # Bowel Movements 0 1 0 Result Diagram: 12/06/17 0553 12/06/17 0553 Imaging Last Impressions Lower Extremity Ultrasound 11/19/17 0000 Signed Impressions: Service Date/Time: Sunday, November 19, 2017 08:30 - CONCLUSION: Complex fluid collection in the posterior medial soft tissues measuring up to 1.2 cm, correlating with the findings seen on recent MRI. Seth Verma MD Ankle MRI 11/17/17 0000 Signed Impressions: Service Date/Time: Friday, November 17, 2017 21:51 - CONCLUSION: 1. Normal marrow edema with no evidence of osteomyelitis. 2. Soft tissue edema along the medial ankle with 1.2 cm focal area of abnormality which could represent a small abscess or cystic structure. This did not enhance. 3. Mild tenosynovitis involving the flexor digitorum longus tendon, tibialis posterior tendon and peroneus longus tendon Jerad Santos MD Chest CT 11/16/17 0000 Signed Impressions: Service Date/Time: Thursday, November 16, 2017 12:55 - CONCLUSION: 1. Trace right and small left pleural effusions with associated airspace consolidation at the lung bases. Differential considerations include aspiration or pneumonia with reactive effusions versus pleural effusions with compressive atelectasis. 2. Partially imaged right shaped defects in the azygous portions of the spleen which may reflect splenic infarcts. 3. Eccentric aortic valve calcifications consistent with prior history of aortic valve endocarditis. Russell Jose MD Abdomen/Pelvis CT 11/16/17 0000 Signed Impressions: Service Date/Time: Thursday, November 16, 2017 12:57 - CONCLUSION: 1. Stable probable embolic splenic and renal infarcts. 2. No acute abnormality or significant interval change. Specifically, no evidence for drainable abscess in the abdomen. Russell Jose MD Ankle X-Ray 11/14/17 0000 Signed Impressions: Service Date/Time: Tuesday, November 14, 2017 14:00 - CONCLUSION: Unremarkable examination of the right ankle. Valeriy Chapa MD Head CT 11/10/17 1036 Signed Impressions: Service Date/Time: Friday, November 10, 2017 12:16 - CONCLUSION: There is abnormal low density, likely representing cytotoxic edema, in the left frontal lobe. This very likely is related to a recent ischemic event. Reji Dasilva MD Chest X-Ray 11/10/17 1036 Signed Impressions: Service Date/Time: Friday, November 10, 2017 10:54 - CONCLUSION: No acute cardiopulmonary process. Kirby Trejo MD Liver Ultrasound 11/10/17 0000 Signed Impressions: Service Date/Time: Friday, November 10, 2017 14:47 - CONCLUSION: 1. Liver and spleen are both enlarged with multiple diffuse hepatic fatty infiltration. 2. Linear echogenic area within the lateral mid body of the spleen may represent a focal area of scarring. 3. Benign renal cortical cysts of the right kidney. 4. Small 3 mm gallbladder polyp. Gallbladder is otherwise sonographically normal. Kirby Trejo MD Brain MRI 11/10/17 0000 Signed Impressions: Service Date/Time: Friday, November 10, 2017 20:51 - CONCLUSION: The eighth of diminished attenuation involving the left frontoparietal junction on the patient's prior CT examination corresponds to acute infarction in addition to multiple other areas of new acute infarction bilaterally not present on the prior MRI dated 09/10/2017 and previously seen acute infarctions on the right side on that study have been evolved. Findings were discussed with the patient's nurse Chandan on 11/10/2017 9:19 PM. Fernanda Padilla MD Objective Remarks GENERAL: Well-developed, well-nourished patient in NAD. SKIN: Warm and dry. No rash. HEAD: Normocephalic. Atraumatic. EYES: Pupils equal and round. No scleral icterus. No injection or drainage. ENT: No nasal bleeding or discharge. Mucous membranes pink and moist. NECK: Supple. Trachea midline. CARDIOVASCULAR: Regular rate and rhythm. S1, S2 noted. No murmur appreciated. RESPIRATORY: No accessory muscle use. Clear to auscultation. Breath sounds equal bilaterally. GASTROINTESTINAL: Abdomen soft, non-tender, nondistended. Normoactive bowel sounds x4. MUSCULOSKELETAL: No obvious deformities. Extremities without clubbing, cyanosis , or edema. NEUROLOGICAL: Awake and alert. No obvious cranial nerve deficits. Motor grossly within normal limits. 5/5 muscle strength in bilateral upper and lower extremities. Normal speech. PSYCHIATRIC: Appropriate mood and affect; insight and judgment normal. A/P Problem List: (1) Bacteremia ICD Code: R78.81 - Bacteremia (2) UTI (urinary tract infection) ICD Code: N39.0 - Urinary tract infection, site not specified (3) CVA (cerebral vascular accident) ICD Code: I63.9 - Cerebral infarction, unspecified (4) Cocaine abuse ICD Code: F14.10 - Cocaine abuse, uncomplicated (5) Aortic valve endocarditis ICD Code: I35.8 - Other nonrheumatic aortic valve disorders Assessment and Plan This is a 52-year-old male patient with a known medical history of CVA with residual expressive aphasia who presented with: Aortic valve endocarditis Pseudomonas bacteremia Septic splenic/renal infarcts Continue on IV antibiotics as per infectious disease, on Ampicillin and Cefepime- stop date; 12/23/17 -per ID. CBC, CMP and CRP weekly while on IV antibiotics. History of CVA with expressive aphasia and multiple embolic episodes likely microabscesses Evaluated by neurology- continue rehab efforts. Steatosis on liver US -10/29 etoh. f/u PCP Swollen Ankle Xray negative for acute process Ultrasound negative for DVT. No sign of acute ankle infection. Continue to monitor. Clay Worker was consulted and following. Per tar heater recommend compress elevate and continue warm compress with continued ABXs since ankle is improving. Clay Worker stated that if there is any worsening of symptoms can reconsult. Anemia of chronic disease. H&H stable. Continue to monitor periodically. Social situation. Patient with history of IV drug use, noncompliance. Patient has requested to forego treatment. Per psychiatrist patient does not have the capacity to make medical decisions. DVT prophylaxis: Encourage ambulation. Discharge Planning on IV antibiotics. patient is a self-pay. Makenzie Reynoso Dec 09, 2017 11:16
--- NOTE | 2017-12-09 11:39 | HHI.PYPN ---
Subjective Remarks The patient was visited today for psychiatric reevaluation. Patient reports feeling much better today. Patient has a brighter affect, he is in a good spirits, reports good mood. The patient denies previous psychiatric hospitalizations, he denies psychiatric diagnosis, denies previous suicide attempts. He states that other than using alcohol, marijuana and cocaine sometimes, "I am normal and happy person". 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 He denies suicidal and was ideation, he denies visual and auditory hallucinations. The patient is logical , coherent and relevant. No attention deficit, no fluctuation of consciousness present at this moment, the patient is fully oriented 3. Review of Systems Constitutional: DENIES: Diaphoretic episodes, Fatigue, Fever, Weight gain, Weight loss, Chills, Dizziness, Change in appetite, Night Sweats Endocrine: DENIES: Heat/cold intolerance, Polydipsia, Polyuria, Polyphagia Eyes: DENIES: Blurred vision, Diplopia, Eye inflammation, Eye pain, Vision loss , Photosensitivity, Double Vision Ears, nose, mouth, throat: DENIES: Tinnitus, Hearing loss, Vertigo, Nasal discharge, Oral lesions, Throat pain, Hoarseness, Ear Pain, Running Nose, Epistaxis, Sinus Pain, Toothache, Odynophagia Respiratory: DENIES: Apneas, Cough, Snoring, Wheezing, Hemoptysis, Sputum production, Shortness of breath Cardiovascular: DENIES: Chest pain, Palpitations, Syncope, Dyspnea on Exertion , PND, Lower Extremity Edema, Orthopnea, Claudication Gastrointestinal: DENIES: Abdominal pain, Black stools, Bloody stools, Constipation, Diarrhea, Nausea, Vomiting, Difficulty Swallowing, Anorexia Genitourinary: DENIES: Sexual dysfunction, Urinary frequency, Urinary incontinence, Urgency, Hematuria, Dysuria, Nocturia, Penile Discharge, Testicular Pain, Testicular Swelling Musculoskeletal: DENIES: Joint pain, Muscle aches, Stiffness, Joint Swelling, Back pain, Neck pain Integumentary: DENIES: Abnormal pigmentation, Nail changes, Pruritus, Rash Hematologic/lymphatic: DENIES: Bruising, Lymphadenopathy Immunologic/allergic: DENIES: Eczema, Urticaria Neurologic: DENIES: Abnormal gait, Headache, Localized weakness, Paresthesias, Seizures, Speech Problems, Tremor, Poor Balance Psychiatric: DENIES: Anxiety, Confusion, Mood changes, Depression, Hallucinations, Agitation, Suicidal Ideation, Homicidal Ideation, Delusions Mental Status Examination Appearance: Appropriate Consciousness: Alert Orientation: x4 Motor Activity: Normal gait Speech: Unremarkable Language: Adequate Fund of Knowledge: Adequate Attention and Concentration: Adequate Memory: Unremarkable, Impaired Mood: Appropriate Thought Process & Associations: Intact Thought Content: Preoccupations, Obsessions Hallucination Type: None Delusion Type: None Suicidal Ideation: No Suicidal Plan: No Suicidal Intention: No Homicidal Ideation: No Homicidal Plan: No Homicidal Intention: No Insight: Fair Judgment: Impulsive Results Labs Date/Time Source Procedure Growth Status 11/13/17 05:45 Blood Peripheral Aerobic Blood Culture - Final NO GROWTH IN 5 DAYS Complete 11/13/17 05:45 Blood Peripheral Anaerobic Blood Culture - Final NO GROWTH IN 5 DAYS Complete 11/10/17 11:15 Nasal Washing Influenza Types A,B Antigen (SERENITY) - Final NEGATIVE FOR FLU A AND B ANTIGEN.... Complete 11/10/17 14:20 Urine Catheterized Urine Urine Culture - Final NO GROWTH IN 48 HOURS. Complete Vitals/IOs Vital Signs Date Time Temp Pulse Resp B/P (MAP) Pulse Ox O2 Delivery O2 Flow Rate FiO2 12/09/17 07:45 96.7 81 18 124/50 (74) 95 Intake and Output 12/09/17 12/09/17 12/10/17 08:00 16:00 00:00 Intake Total 580 ml Balance 580 ml Assessment & Plan Problem List: (1) Delirium due to another medical condition ICD Codes: F05 - Delirium due to known physiological condition Assessment & Plan: On psychiatric evaluation today the patient does not present any neuropsychiatric symptoms that requires immediate psychiatric intervention/attention. Patient denies suicidal or homicidal ideation, he denies visual and auditory hallucinations. The patient is fully oriented 3. Patient reports having history of using cocaine, marijuana, alcohol occasionally. He does not have any previous psychiatric history. Patient does not meet criteria for involuntary psychiatric admission. He is disorganized/ agitated behavior presented at the beginning of hospitalization was most probably the result of delirium related with underlying medical problems. (2) CVA (cerebral vascular accident) ICD Codes: I63.9 - Cerebral infarction, unspecified (3) Severe sepsis ICD Codes: A41.9 - Sepsis, unspecified organism; R65.20 - Severe sepsis without septic shock Status: Acute Assessment & Plan Estimated LOS: days Justification for Cont. Inpt. No admission indicated. Matthew,Fletcher B. MD Dec 09, 2017 11:39
[2017-12-09 11:52] VITALS: BP 118/50; PULSE 88; RESP 18; TEMP 95.9; O2SAT 96
[2017-12-09 15:07] VITALS: BP 117/55; PULSE 85; RESP 18; TEMP 96; O2SAT 95
[2017-12-09 20:00] VITALS: BP 122/51; PULSE 85; RESP 15; TEMP 98.7; O2SAT 95
[2017-12-10] VITALS: BP 127/62; PULSE 85; RESP 16; TEMP 97; O2SAT 95
[2017-12-10] MEDS: AMPICILLIN INJ 2,000 MG in SODIUM CHLORIDE 0.9% INJ 100 ML IV SCH ×7 (00:15→23:35)
[2017-12-10] MEDS: SODIUM CHLORIDE 0.9% FLUSH 10 ML FLUSH IV FLUSH PRN ×3 (00:16→23:35)
[2017-12-10] MEDS: CEFEPIME INJ 2,000 MG in SODIUM CHLORIDE 0.9% INJ 100 ML IV SCH ×3 (05:15→20:54)
[2017-12-10] MEDS: HEPARIN SODIUM - SQ 10,000 UNITS/ML VIAL SQ SCH ×3 (05:53→23:35)
[2017-12-10] MEDS: DOCUSATE SODIUM 50 MG/SENNA 8.6 MG TAB PO SCH ×2 (07:33→20:55)
[2017-12-10] MEDS: MUPIROCIN 2% OINT 1 APPLIC/GM SYR NASAL SCH ×2 (07:33→20:55)
[2017-12-10] MEDS: SODIUM CHLORIDE 0.9% FLUSH 10 ML FLUSH IV FLUSH SCH ×2 (07:52→20:54)
[2017-12-10 07:58] VITALS: BP 135/61; PULSE 97; RESP 18; TEMP 98.1; O2SAT 94
[2017-12-10 12:09] VITALS: BP 111/53; PULSE 76; RESP 17; TEMP 97.5; O2SAT 95
--- NOTE | 2017-12-10 12:34 | HHI.PR ---
Subjective Remarks Follow-up on patient with aortic valve endocarditis, Pseudomonas bacteremia and sepsis. Patient seen and examined. Patient denies any acute medical complaints. States he feels well. Denies any fever or chills. Denies any chest pain or shortness of breath. Denies any nausea, vomiting or abdominal pain. Patient is afebrile. Vital signs are stable. Objective Vitals Vital Signs Date Time Temp Pulse Resp B/P (MAP) Pulse Ox O2 Delivery O2 Flow Rate FiO2 12/10/17 12:09 97.5 76 17 111/53 (72) 95 12/10/17 07:58 98.1 97 18 135/61 (85) 94 12/10/17 00:00 97.0 85 16 127/62 (83) 95 12/09/17 20:00 98.7 85 15 122/51 (74) 95 12/09/17 15:07 96.0 85 18 117/55 (75) 95 I/O 12/09/17 12/09/17 12/09/17 12/10/17 12/10/17 12/10/17 07:00 15:00 23:00 07:00 15:00 23:00 Intake Total 580 ml 1200 ml 200 ml 660 ml Balance 580 ml 1200 ml 200 ml 660 ml Intake Oral 480 ml 1200 ml 360 ml IV Total 100 ml 200 ml 300 ml # Voids 1 2 2 # Bowel Movements 0 1 0 Result Diagram: 12/06/17 0553 12/06/17 0553 Imaging Last Impressions Lower Extremity Ultrasound 11/19/17 0000 Signed Impressions: Service Date/Time: Sunday, November 19, 2017 08:30 - CONCLUSION: Complex fluid collection in the posterior medial soft tissues measuring up to 1.2 cm, correlating with the findings seen on recent MRI. Seth Verma MD Ankle MRI 11/17/17 0000 Signed Impressions: Service Date/Time: Friday, November 17, 2017 21:51 - CONCLUSION: 1. Normal marrow edema with no evidence of osteomyelitis. 2. Soft tissue edema along the medial ankle with 1.2 cm focal area of abnormality which could represent a small abscess or cystic structure. This did not enhance. 3. Mild tenosynovitis involving the flexor digitorum longus tendon, tibialis posterior tendon and peroneus longus tendon Jerad Santos MD Chest CT 11/16/17 0000 Signed Impressions: Service Date/Time: Thursday, November 16, 2017 12:55 - CONCLUSION: 1. Trace right and small left pleural effusions with associated airspace consolidation at the lung bases. Differential considerations include aspiration or pneumonia with reactive effusions versus pleural effusions with compressive atelectasis. 2. Partially imaged right shaped defects in the azygous portions of the spleen which may reflect splenic infarcts. 3. Eccentric aortic valve calcifications consistent with prior history of aortic valve endocarditis. Russell Jose MD Abdomen/Pelvis CT 11/16/17 0000 Signed Impressions: Service Date/Time: Thursday, November 16, 2017 12:57 - CONCLUSION: 1. Stable probable embolic splenic and renal infarcts. 2. No acute abnormality or significant interval change. Specifically, no evidence for drainable abscess in the abdomen. Russell Jose MD Ankle X-Ray 11/14/17 0000 Signed Impressions: Service Date/Time: Tuesday, November 14, 2017 14:00 - CONCLUSION: Unremarkable examination of the right ankle. Valeriy Chapa MD Head CT 11/10/17 1036 Signed Impressions: Service Date/Time: Friday, November 10, 2017 12:16 - CONCLUSION: There is abnormal low density, likely representing cytotoxic edema, in the left frontal lobe. This very likely is related to a recent ischemic event. Reji Dasilva MD Chest X-Ray 11/10/17 1036 Signed Impressions: Service Date/Time: Friday, November 10, 2017 10:54 - CONCLUSION: No acute cardiopulmonary process. Kirby Trejo MD Liver Ultrasound 11/10/17 0000 Signed Impressions: Service Date/Time: Friday, November 10, 2017 14:47 - CONCLUSION: 1. Liver and spleen are both enlarged with multiple diffuse hepatic fatty infiltration. 2. Linear echogenic area within the lateral mid body of the spleen may represent a focal area of scarring. 3. Benign renal cortical cysts of the right kidney. 4. Small 3 mm gallbladder polyp. Gallbladder is otherwise sonographically normal. Kirby Trejo MD Brain MRI 11/10/17 0000 Signed Impressions: Service Date/Time: Friday, November 10, 2017 20:51 - CONCLUSION: The eighth of diminished attenuation involving the left frontoparietal junction on the patient's prior CT examination corresponds to acute infarction in addition to multiple other areas of new acute infarction bilaterally not present on the prior MRI dated 09/10/2017 and previously seen acute infarctions on the right side on that study have been evolved. Findings were discussed with the patient's nurse Chandan on 11/10/2017 9:19 PM. Fernanda Padilla MD Objective Remarks GENERAL: Well-developed, well-nourished male patient in NAD. Awake and alert. Appears comfortable. SKIN: Warm and dry. No rash. HEAD: Normocephalic. Atraumatic. EYES: EOMI. No scleral icterus. No injection or drainage. ENT: No nasal bleeding or discharge. Mucous membranes pink and moist. NECK: Trachea midline. CARDIOVASCULAR: Regular rate and rhythm. S1, S2 noted. (+)Murmur present. RESPIRATORY: Nonlabored. Clear to auscultation. Breath sounds equal bilaterally. GASTROINTESTINAL: Abdomen soft, non-tender, nondistended. Normoactive bowel sounds x4. MUSCULOSKELETAL: No obvious deformities. Extremities without clubbing, cyanosis , or edema. NEUROLOGICAL: Awake and alert. No obvious cranial nerve deficits. Motor grossly within normal limits. 5/5 muscle strength in bilateral upper and lower extremities. Normal speech. PSYCHIATRIC: Appropriate mood and affect; insight and judgment normal. Medications and IVs Current Medications Medications (Trade) Dose Ordered Sig/Vikas Route Start Time Stop Time Status Last Admin (NS Flush) 2 ml UNSCH PRN IV FLUSH 11/10/17 14:15 12/10/17 05:14 (NS Flush) 2 ml BID IV FLUSH 11/10/17 21:00 12/10/17 07:52 (Heparin Inj) 5,000 units Q8H SQ 11/10/17 14:15 12/10/17 05:53 (Narcan Inj) 0.4 mg UNSCH PRN IV PUSH 11/10/17 14:15 (Arabella-Colace) 1 tab BID PO 11/10/17 21:00 12/06/17 07:32 (Milk Of Magnesia Liq) 30 ml Q12H PRN PO 11/10/17 14:15 (Senokot) 17.2 mg Q12H PRN PO 11/10/17 14:15 (Dulcolax Supp) 10 mg DAILY PRN RECTAL 2/14/18 14:15 (Lactulose Liq) 30 ml DAILY PRN PO 11/10/17 14:15 (Bactroban Nasal 2% Oint) 1 applic BID NASAL 11/10/17 21:00 11/26/17 08:31 Cefepime HCl 2000 mg/Sodium Chloride 100 ml @ 200 mls/hr Q8H IV 11/20/17 20:00 12/10/17 11:54 Ampicillin Sodium 2000 mg/Sodium Chloride 100 ml @ 400 mls/hr Q4H IV 11/20/17 16:00 12/10/17 11:13 A/P Problem List: (1) Bacteremia ICD Code: R78.81 - Bacteremia (2) UTI (urinary tract infection) ICD Code: N39.0 - Urinary tract infection, site not specified (3) CVA (cerebral vascular accident) ICD Code: I63.9 - Cerebral infarction, unspecified (4) Cocaine abuse ICD Code: F14.10 - Cocaine abuse, uncomplicated (5) Aortic valve endocarditis ICD Code: I35.8 - Other nonrheumatic aortic valve disorders Assessment and Plan This is a 52-year-old male patient with a known medical history of recent CVA and cocaine abuse: Aortic valve endocarditis Pseudomonas bacteremia Septic splenic/renal infarcts Continue on IV antibiotics as per infectious disease, on Ampicillin and Cefepime- stop date; 12/23/17 -per ID. 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 Steatosis on liver US -10/29 etoh. f/u PCP Swollen Ankle, much improved Xray negative for acute process Ultrasound negative for DVT. No sign of acute ankle infection. Continue to monitor. Curtain Supervisor was consulted and following. Per residential roofer recommend compress elevate and continue warm compress with continued ABXs since ankle is improving. Curtain Supervisor stated that if there is any worsening of symptoms can reconsult. Anemia of chronic disease. H&H stable. Continue to monitor periodically. Social situation. Patient with history of IV drug use, noncompliance. Psychiatry following, does not meet criteria for inpt psychiatric admission DVT prophylaxis: Encourage ambulation. Discharge Planning Self pay, pending completion of IV abx treatment Marissa Chandler Dec 10, 2017 12:34
[2017-12-10 16:31] VITALS: BP 112/51; PULSE 84; RESP 18; TEMP 95.9; O2SAT 97
[2017-12-10 20:17] VITALS: BP 127/57; PULSE 88; RESP 18; TEMP 96.4; O2SAT 96
[2017-12-11] VITALS: BP 137/54; PULSE 87; RESP 18; TEMP 96.1; O2SAT 95
[2017-12-11] MEDS: CEFEPIME INJ 2,000 MG in SODIUM CHLORIDE 0.9% INJ 100 ML IV SCH ×3 (04:48→21:04)
[2017-12-11] MEDS: SODIUM CHLORIDE 0.9% FLUSH 10 ML FLUSH IV FLUSH PRN (04:48)
[2017-12-11] MEDS: AMPICILLIN INJ 2,000 MG in SODIUM CHLORIDE 0.9% INJ 100 ML IV SCH ×5 (04:48→21:10)
[2017-12-11] MEDS: HEPARIN SODIUM - SQ 10,000 UNITS/ML VIAL SQ SCH ×3 (06:34→22:20)
[2017-12-11 08:00] VITALS: BP 125/60; PULSE 81; RESP 19; TEMP 96.1; O2SAT 96
[2017-12-11] MEDS: DOCUSATE SODIUM 50 MG/SENNA 8.6 MG TAB PO SCH ×2 (09:00→21:00)
[2017-12-11] MEDS: MUPIROCIN 2% OINT 1 APPLIC/GM SYR NASAL SCH ×2 (09:00→21:00)
[2017-12-11] MEDS: SODIUM CHLORIDE 0.9% FLUSH 10 ML FLUSH IV FLUSH SCH ×2 (09:22→21:04)
[2017-12-11 12:00] VITALS: BP 129/62; PULSE 87; RESP 18; TEMP 95.6; O2SAT 97
--- NOTE | 2017-12-11 12:01 | HHI.PR ---
Subjective Remarks Follow-up on patient with aortic valve endocarditis, Pseudomonas bacteremia and sepsis. Patient seen and examined. Patient denies any acute medical complaints. States he feels well. Denies any fever or chills. Denies any chest pain or shortness of breath. Denies any nausea, vomiting or abdominal pain. Patient is afebrile. Vital signs are stable. 3- CONTINUE ANTIBIOTICS Discussed with patient and RN NO NEW COMPLAINTS Objective Vitals Vital Signs Date Time Temp Pulse Resp B/P (MAP) Pulse Ox O2 Delivery O2 Flow Rate FiO2 12/11/17 08:00 96.1 81 19 125/60 (81) 96 12/11/17 00:00 96.1 87 18 137/54 (81) 95 12/10/17 20:17 96.4 88 18 127/57 (80) 96 12/10/17 16:31 95.9 84 18 112/51 (71) 97 12/10/17 12:09 97.5 76 17 111/53 (72) 95 I/O 12/10/17 12/10/17 12/10/17 12/11/17 12/11/17 12/11/17 07:00 15:00 23:00 07:00 15:00 23:00 Intake Total 660 ml 960 ml 680 ml 340 ml Balance 660 ml 960 ml 680 ml 340 ml Intake Oral 360 ml 960 ml 480 ml 240 ml IV Total 300 ml 200 ml 100 ml # Voids 2 3 1 1 # Bowel Movements 0 0 0 Imaging Last Impressions Lower Extremity Ultrasound 11/19/17 0000 Signed Impressions: Service Date/Time: Sunday, November 19, 2017 08:30 - CONCLUSION: Complex fluid collection in the posterior medial soft tissues measuring up to 1.2 cm, correlating with the findings seen on recent MRI. Seth Verma MD Ankle MRI 11/17/17 0000 Signed Impressions: Service Date/Time: Friday, November 17, 2017 21:51 - CONCLUSION: 1. Normal marrow edema with no evidence of osteomyelitis. 2. Soft tissue edema along the medial ankle with 1.2 cm focal area of abnormality which could represent a small abscess or cystic structure. This did not enhance. 3. Mild tenosynovitis involving the flexor digitorum longus tendon, tibialis posterior tendon and peroneus longus tendon Jerad Santos MD Chest CT 11/16/17 0000 Signed Impressions: Service Date/Time: Thursday, November 16, 2017 12:55 - CONCLUSION: 1. Trace right and small left pleural effusions with associated airspace consolidation at the lung bases. Differential considerations include aspiration or pneumonia with reactive effusions versus pleural effusions with compressive atelectasis. 2. Partially imaged right shaped defects in the azygous portions of the spleen which may reflect splenic infarcts. 3. Eccentric aortic valve calcifications consistent with prior history of aortic valve endocarditis. Russell Jose MD Abdomen/Pelvis CT 11/16/17 0000 Signed Impressions: Service Date/Time: Thursday, November 16, 2017 12:57 - CONCLUSION: 1. Stable probable embolic splenic and renal infarcts. 2. No acute abnormality or significant interval change. Specifically, no evidence for drainable abscess in the abdomen. Russell Jose MD Ankle X-Ray 11/14/17 0000 Signed Impressions: Service Date/Time: Tuesday, November 14, 2017 14:00 - CONCLUSION: Unremarkable examination of the right ankle. Valeriy Chapa MD Head CT 11/10/17 1036 Signed Impressions: Service Date/Time: Friday, November 10, 2017 12:16 - CONCLUSION: There is abnormal low density, likely representing cytotoxic edema, in the left frontal lobe. This very likely is related to a recent ischemic event. Reji Dasilva MD Chest X-Ray 11/10/17 1036 Signed Impressions: Service Date/Time: Friday, November 10, 2017 10:54 - CONCLUSION: No acute cardiopulmonary process. Kirby Trejo MD Liver Ultrasound 11/10/17 0000 Signed Impressions: Service Date/Time: Friday, November 10, 2017 14:47 - CONCLUSION: 1. Liver and spleen are both enlarged with multiple diffuse hepatic fatty infiltration. 2. Linear echogenic area within the lateral mid body of the spleen may represent a focal area of scarring. 3. Benign renal cortical cysts of the right kidney. 4. Small 3 mm gallbladder polyp. Gallbladder is otherwise sonographically normal. Kirby Trejo MD Brain MRI 11/10/17 0000 Signed Impressions: Service Date/Time: Friday, November 10, 2017 20:51 - CONCLUSION: The eighth of diminished attenuation involving the left frontoparietal junction on the patient's prior CT examination corresponds to acute infarction in addition to multiple other areas of new acute infarction bilaterally not present on the prior MRI dated 09/10/2017 and previously seen acute infarctions on the right side on that study have been evolved. Findings were discussed with the patient's nurse Chandan on 11/10/2017 9:19 PM. Fernanda Padilla MD Objective Remarks GENERAL: Well-developed, well-nourished male patient in NAD. Awake and alert. Appears comfortable. Still some word finding and some degree of aphasia SKIN: Warm and dry. No rash. HEAD: Normocephalic. Atraumatic. EYES: EOMI. No scleral icterus. No injection or drainage. ENT: No nasal bleeding or discharge. Mucous membranes pink and moist. NECK: Trachea midline. CARDIOVASCULAR: Regular rate and rhythm. S1, S2 noted. (+)Murmur present. RESPIRATORY: Nonlabored. Clear to auscultation. Breath sounds equal bilaterally. GASTROINTESTINAL: Abdomen soft, non-tender, nondistended. Normoactive bowel sounds x4. MUSCULOSKELETAL: No obvious deformities. Extremities without clubbing, cyanosis , or edema. NEUROLOGICAL: Awake and alert. No obvious cranial nerve deficits. Motor grossly within normal limits. 5/5 muscle strength in bilateral upper and lower extremities. Normal speech. PSYCHIATRIC: Appropriate mood and affect; insight and judgment normal. Medications and IVs Current Medications Vancomycin HCl 1000 mg/Sodium Chloride 250 ml @ 250 mls/hr ONCE STAT IV Last administered on 11/10/17at 13:21; Start 11/10/17 at 10:36; Stop 11/10/17 at 11:35 ; Status DC Cefepime HCl 2000 mg/Sodium Chloride 100 ml @ 200 mls/hr ONCE STAT IV Last administered on 11/10/17at 11:18; Start 11/10/17 at 10:36; Stop 11/10/17 at 11:20 ; Status DC Sodium Chloride 1,000 ml @ 999 mls/hr BOLUS ONCE IV Last administered on 11/10at 11:20; Start 11/10/17 at 11:30; Stop 11/10/17 at 12:38; Status DC Acetaminophen (Tylenol Supp) 650 mg ONCE ONCE RECTAL Last administered on 11/10at 11:41; Start 11/10/17 at 11:30; Stop 11/10/17 at 11:31; Status DC Aspirin (Aspirin Supp) 300 mg ONCE ONCE RECTAL Last administered on 11/10/17 13:21; Start 11/10/17 at 13:00; Stop 11/10/17 at 13:02; Status DC Sodium Chloride 1,000 ml @ 100 mls/hr Q10H IV Last administered on 11/20/17at 05:52; Start 11/10/17 at 14:07; Stop 11/30/17 at 11:02; Status DC Sodium Chloride (NS Flush) 2 ml UNSCH PRN IV FLUSH FLUSH AFTER USING IV ACCESS Last administered on 12/11/17at 04:48; Start 11/10/17 at 14:15 Sodium Chloride (NS Flush) 2 ml BID IV FLUSH Last administered on 12/11/17at 09: 22; Start 11/10/17 at 21:00 Heparin Sodium (Porcine) (Heparin Inj) 5,000 units Q8H SQ Last administered on 12/11/17at 06:34; Start 11/10/17 at 14:15 Naloxone HCl (Narcan Inj) 0.4 mg UNSCH PRN IV PUSH SEE LABEL COMMENTS; Start at 14:15 Senna/Docusate Sodium (Arabella-Colace) 1 tab BID PO Last administered on at 07:32; Start 11/10/17 at 21:00 Magnesium Hydroxide (Milk Of Magnesia Liq) 30 ml Q12H PRN PO Mild constipation ; Start 11/10/17 at 14:15 Sennosides (Senokot) 17.2 mg Q12H PRN PO Moderate constipation; Start 11/10/17 at 14:15 Bisacodyl (Dulcolax Supp) 10 mg DAILY PRN RECTAL SEVERE CONSITIPATION; Start at 14:15 Lactulose (Lactulose Liq) 30 ml DAILY PRN PO SEVERE CONSITIPATION; Start at 14:15 Sodium Chloride 1,000 ml @ 999 mls/hr BOLUS ONCE IV Last administered on 11/10at 16:40; Start 11/10/17 at 14:15; Stop 11/10/17 at 15:29; Status DC Sodium Chloride 1,000 ml @ 999 mls/hr BOLUS ONCE IV Last administered on 11/10at 17:40; Start 11/10/17 at 14:15; Stop 11/10/17 at 15:29; Status DC Sodium Chloride 1,000 ml @ 42 mls/hr [id number] IV ; Start 11/10/17 at 14:07; Stop 11/10/17 at 17:15; Status DC Sodium Chloride 1,000 ml @ 84 mls/hr [id number] IV ; Start 11/10/17 at 14:07; Stop 11/10/17 at 17:15; Status DC Sodium Chloride 1,000 ml @ 100 mls/hr Q10H IV ; Start 11/10/17 at 14:07; Stop 11/10/17 at 17:15; Status DC Sodium Chloride 1,000 ml @ 125 mls/hr Q8H IV ; Start 11/10/17 at 14:07; Stop at 17:16; Status DC Pharmacy Profile Note 0 ml @ 0 mls/hr UNSCH OTHER ; Start 11/10/17 at 14:15; Status Cancel Vancomycin HCl 1251 mg/Sodium Chloride 512.51 ml @ 250 mls/ hr Q12H IV ; Start 11/10/17 at 14:15; Status UNV Cefepime HCl 2000 mg/Sodium Chloride 100 ml @ 200 mls/hr Q8H IV Last administered on 11/20/17at 13:46; Start 11/10/17 at 14:15; Stop 11/20/17 at 14:13 ; Status DC Vancomycin HCl 750 mg/Sodium Chloride 257.5 ml @ 250 mls/hr ONCE ONCE IV Last administered on 11/10/17at 18:48; Start 11/10/17 at 16:00; Stop 11/10/17 at 17:01; Status DC Mupirocin (Bactroban Nasal 2% Oint) 1 applic BID NASAL Last administered on 11/26at 08:31; Start 11/10/17 at 21:00 Sodium Chloride 2,000 ml @ 999 mls/hr Q2H1M IV Last administered on 11/10/17at 17:45; Start 11/10/17 at 17:45; Stop 11/10/17 at 19:45; Status DC Vancomycin HCl 1250 mg/Sodium Chloride 262.5 ml @ 250 mls/hr Q18H IV Last administered on 11/13/17at 00:20; Start 11/11/17 at 12:00; Stop 11/13/17 at 10:56 ; Status DC Miscellaneous Information SPECIFIC LAB TO BE DRAWN:VANCOMYCIN TROUGH DATE TO... ONCE ONCE .XX Last administered on 11/12/17at 23:50; Start 11/12/17 at 23:45; Stop 11/12/17 at 23:46; Status DC Pharmacy Profile Note 0 ml @ 0 mls/hr UNSCH OTHER ; Start 11/11/17 at 15:30; Stop 11/15/17 at 08:10; Status DC Vancomycin HCl 1250 mg/Sodium Chloride 262.5 ml @ 250 mls/hr Q12H IV ; Start at 14:00; Stop 11/13/17 at 19:19; Status DC Vancomycin HCl 1250 mg/Sodium Chloride 262.5 ml @ 250 mls/hr Q12H IV Last administered on 11/14/17at 19:49; Start 11/13/17 at 20:00; Stop 11/15/17 at 08:10 ; Status DC Ampicillin Sodium 2000 mg/Sodium Chloride 100 ml @ 400 mls/hr Q4H IV Last administered on 11/20/17at 12:29; Start 11/15/17 at 09:00; Stop 11/20/17 at 12:35 ; Status DC Diatrizoate Meglum/ Diatrizoate Sod ( Gastroview Liq) 18 ml ONCE ONCE PO Last administered on 11/16/17at 10:04; Start 11/16/17 at 09:15; Stop 11/16/17 at 09:16; Status DC Iohexol (Omnipaque 350 Inj) 96 ml STK-MED ONCE IVCONTRAST Last administered on 11/16/17at 13:12; Start 11/16/17 at 13:12; Stop 11/16/17 at 13:13; Status DC Gadodiamide (Omniscan Pf Inj) 16 ml STK-MED ONCE IVCONTRAST Last administered on 11/17/17at 23:07; Start 11/17/17 at 22:34; Stop 11/17/17 at 22:36; Status DC Ampicillin Sodium 2000 mg/Sodium Chloride 100 ml @ 400 mls/hr Q4H IV ; Start at 17:00; Stop 11/20/17 at 17:00; Status DC Cefepime HCl 2000 mg/Sodium Chloride 100 ml @ 200 mls/hr Q8H IV Last administered on 12/11/17at 04:48; Start 11/20/17 at 20:00 Ampicillin Sodium 2000 mg/Sodium Chloride 100 ml @ 400 mls/hr Q4H IV Last administered on 12/11/17at 09:22; Start 11/20/17 at 16:00 A/P Problem List: (1) Bacteremia ICD Code: R78.81 - Bacteremia (2) UTI (urinary tract infection) ICD Code: N39.0 - Urinary tract infection, site not specified (3) CVA (cerebral vascular accident) ICD Code: I63.9 - Cerebral infarction, unspecified (4) Cocaine abuse ICD Code: F14.10 - Cocaine abuse, uncomplicated (5) Aortic valve endocarditis ICD Code: I35.8 - Other nonrheumatic aortic valve disorders Assessment and Plan This is a 52-year-old male patient with a known medical history of recent CVA and cocaine abuse: Aortic valve endocarditis Pseudomonas bacteremia Septic splenic/renal infarcts Continue on IV antibiotics as per infectious disease, on Ampicillin and Cefepime- stop date; 12/23/17 -per ID. 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 Steatosis on liver US -10/29 etoh. f/u PCP Swollen Ankle, much improved Xray negative for acute process Ultrasound negative for DVT. No sign of acute ankle infection. Continue to monitor. Apartment Leasing Manager was consulted and following. Per doctor of chiropractic recommend compress elevate and continue warm compress with continued ABXs since ankle is improving. Apartment Leasing Manager stated that if there is any worsening of symptoms can reconsult. Anemia of chronic disease. H&H stable. Continue to monitor periodically. Social situation. Patient with history of IV drug use, noncompliance. Psychiatry following, does not meet criteria for inpt psychiatric admission DVT prophylaxis: Encourage ambulation. Discharge Planning PENDING COMPLETE CARE HOME ANTIBIOTICS Ramakrishna Borrego DO Dec 11, 2017 12:01
[2017-12-11 20:00] VITALS: BP 123/60; PULSE 88; RESP 18; TEMP 96.6; O2SAT 99
[2017-12-12] VITALS: BP 121/57; PULSE 85; RESP 20; TEMP 96.7; O2SAT 95
[2017-12-12] MEDS: AMPICILLIN INJ 2,000 MG in SODIUM CHLORIDE 0.9% INJ 100 ML IV SCH ×6 (00:12→20:22)
[2017-12-12] MEDS: CEFEPIME INJ 2,000 MG in SODIUM CHLORIDE 0.9% INJ 100 ML IV SCH ×3 (04:06→20:30)
[2017-12-12] MEDS: HEPARIN SODIUM - SQ 10,000 UNITS/ML VIAL SQ SCH ×3 (06:23→22:07)
[2017-12-12 08:00] VITALS: BP 115/55; PULSE 81; RESP 18; TEMP 96.5; O2SAT 93
[2017-12-12] MEDS: MUPIROCIN 2% OINT 1 APPLIC/GM SYR NASAL SCH ×2 (08:31→20:23)
[2017-12-12] MEDS: SODIUM CHLORIDE 0.9% FLUSH 10 ML FLUSH IV FLUSH SCH ×2 (08:32→20:23)
[2017-12-12] MEDS: DOCUSATE SODIUM 50 MG/SENNA 8.6 MG TAB PO SCH ×2 (08:32→20:23)
--- NOTE | 2017-12-12 09:46 | HHI.PR ---
Subjective Remarks Follow-up on patient with aortic valve endocarditis, Pseudomonas bacteremia and sepsis. Patient seen and examined. Patient denies any acute medical complaints. States he feels well. Denies any fever or chills. Denies any chest pain or shortness of breath. Denies any nausea, vomiting or abdominal pain. Patient is afebrile. Vital signs are stable. 3-17 CONTINUE ANTIBIOTICS Discussed with patient and RN NO NEW COMPLAINTS 3-18 NO NEW COMPLAINTS REFUSING MOST THINGS OTHER THAN ANTIBIOTICS DW RN AND PT Objective Vitals Vital Signs Date Time Temp Pulse Resp B/P (MAP) Pulse Ox O2 Delivery O2 Flow Rate FiO2 12/12/17 08:00 96.5 81 18 115/55 (75) 93 12/12/17 00:00 96.7 85 20 121/57 (78) 95 12/11/17 20:00 96.6 88 18 123/60 (81) 99 12/11/17 12:00 95.6 87 18 129/62 (84) 97 I/O 12/11/17 12/11/17 12/11/17 12/12/17 12/12/17 12/12/17 07:00 15:00 23:00 07:00 15:00 23:00 Intake Total 340 ml 200 ml 440 ml Balance 340 ml 200 ml 440 ml Intake Oral 240 ml 240 ml IV Total 100 ml 200 ml 200 ml # Voids 1 6 1 # Bowel Movements 0 0 Imaging Last Impressions Lower Extremity Ultrasound 11/19/17 0000 Signed Impressions: Service Date/Time: Sunday, November 19, 2017 08:30 - CONCLUSION: Complex fluid collection in the posterior medial soft tissues measuring up to 1.2 cm, correlating with the findings seen on recent MRI. Seth Verma MD Ankle MRI 11/17/17 0000 Signed Impressions: Service Date/Time: Friday, November 17, 2017 21:51 - CONCLUSION: 1. Normal marrow edema with no evidence of osteomyelitis. 2. Soft tissue edema along the medial ankle with 1.2 cm focal area of abnormality which could represent a small abscess or cystic structure. This did not enhance. 3. Mild tenosynovitis involving the flexor digitorum longus tendon, tibialis posterior tendon and peroneus longus tendon Jerad Santos MD Chest CT 11/16/17 0000 Signed Impressions: Service Date/Time: Thursday, November 16, 2017 12:55 - CONCLUSION: 1. Trace right and small left pleural effusions with associated airspace consolidation at the lung bases. Differential considerations include aspiration or pneumonia with reactive effusions versus pleural effusions with compressive atelectasis. 2. Partially imaged right shaped defects in the azygous portions of the spleen which may reflect splenic infarcts. 3. Eccentric aortic valve calcifications consistent with prior history of aortic valve endocarditis. Russell Jose MD Abdomen/Pelvis CT 11/16/17 0000 Signed Impressions: Service Date/Time: Thursday, November 16, 2017 12:57 - CONCLUSION: 1. Stable probable embolic splenic and renal infarcts. 2. No acute abnormality or significant interval change. Specifically, no evidence for drainable abscess in the abdomen. Russell Jose MD Ankle X-Ray 11/14/17 0000 Signed Impressions: Service Date/Time: Tuesday, November 14, 2017 14:00 - CONCLUSION: Unremarkable examination of the right ankle. Valeriy Chapa MD Head CT 11/10/17 1036 Signed Impressions: Service Date/Time: Friday, November 10, 2017 12:16 - CONCLUSION: There is abnormal low density, likely representing cytotoxic edema, in the left frontal lobe. This very likely is related to a recent ischemic event. Reji Dasilva MD Chest X-Ray 11/10/17 1036 Signed Impressions: Service Date/Time: Friday, November 10, 2017 10:54 - CONCLUSION: No acute cardiopulmonary process. Kirby Trejo MD Liver Ultrasound 11/10/17 0000 Signed Impressions: Service Date/Time: Friday, November 10, 2017 14:47 - CONCLUSION: 1. Liver and spleen are both enlarged with multiple diffuse hepatic fatty infiltration. 2. Linear echogenic area within the lateral mid body of the spleen may represent a focal area of scarring. 3. Benign renal cortical cysts of the right kidney. 4. Small 3 mm gallbladder polyp. Gallbladder is otherwise sonographically normal. Kirby Trejo MD Brain MRI 11/10/17 0000 Signed Impressions: Service Date/Time: Friday, November 10, 2017 20:51 - CONCLUSION: The eighth of diminished attenuation involving the left frontoparietal junction on the patient's prior CT examination corresponds to acute infarction in addition to multiple other areas of new acute infarction bilaterally not present on the prior MRI dated 09/10/2017 and previously seen acute infarctions on the right side on that study have been evolved. Findings were discussed with the patient's nurse Chandan on 11/10/2017 9:19 PM. Fernanda Padilla MD Objective Remarks GENERAL: Well-developed, well-nourished male patient in NAD. Awake and alert. Appears comfortable. Still some word finding and some degree of aphasia SKIN: Warm and dry. No rash. HEAD: Normocephalic. Atraumatic. EYES: EOMI. No scleral icterus. No injection or drainage. ENT: No nasal bleeding or discharge. Mucous membranes pink and moist. NECK: Trachea midline. CARDIOVASCULAR: Regular rate and rhythm. S1, S2 noted. (+)Murmur present. RESPIRATORY: Nonlabored. Clear to auscultation. Breath sounds equal bilaterally. GASTROINTESTINAL: Abdomen soft, non-tender, nondistended. Normoactive bowel sounds x4. MUSCULOSKELETAL: No obvious deformities. Extremities without clubbing, cyanosis , or edema. NEUROLOGICAL: Awake and alert. No obvious cranial nerve deficits. Motor grossly within normal limits. 5/5 muscle strength in bilateral upper and lower extremities. Normal speech. PSYCHIATRIC: Appropriate mood and affect; insight and judgment normal. Medications and IVs Current Medications Vancomycin HCl 1000 mg/Sodium Chloride 250 ml @ 250 mls/hr ONCE STAT IV Last administered on 11/10/17at 13:21; Start 11/10/17 at 10:36; Stop 11/10/17 at 11:35 ; Status DC Cefepime HCl 2000 mg/Sodium Chloride 100 ml @ 200 mls/hr ONCE STAT IV Last administered on 11/10/17at 11:18; Start 11/10/17 at 10:36; Stop 11/10/17 at 11:20 ; Status DC Sodium Chloride 1,000 ml @ 999 mls/hr BOLUS ONCE IV Last administered on 11/10at 11:20; Start 11/10/17 at 11:30; Stop 11/10/17 at 12:38; Status DC Acetaminophen (Tylenol Supp) 650 mg ONCE ONCE RECTAL Last administered on 11/10at 11:41; Start 11/10/17 at 11:30; Stop 11/10/17 at 11:31; Status DC Aspirin (Aspirin Supp) 300 mg ONCE ONCE RECTAL Last administered on 11/10/17 13:21; Start 11/10/17 at 13:00; Stop 11/10/17 at 13:02; Status DC Sodium Chloride 1,000 ml @ 100 mls/hr Q10H IV Last administered on 11/20/17at 05:52; Start 11/10/17 at 14:07; Stop 11/30/17 at 11:02; Status DC Sodium Chloride (NS Flush) 2 ml UNSCH PRN IV FLUSH FLUSH AFTER USING IV ACCESS Last administered on 12/11/17at 04:48; Start 11/10/17 at 14:15 Sodium Chloride (NS Flush) 2 ml BID IV FLUSH Last administered on 12/12/17 08: 32; Start 11/10/17 at 21:00 Heparin Sodium (Porcine) (Heparin Inj) 5,000 units Q8H SQ Last administered on 12/12/17 06:23; Start 11/10/17 at 14:15 Naloxone HCl (Narcan Inj) 0.4 mg UNSCH PRN IV PUSH SEE LABEL COMMENTS; Start at 14:15 Senna/Docusate Sodium (Arabella-Colace) 1 tab BID PO Last administered on at 07:32; Start 11/10/17 at 21:00 Magnesium Hydroxide (Milk Of Magnesia Liq) 30 ml Q12H PRN PO Mild constipation ; Start 11/10/17 at 14:15 Sennosides (Senokot) 17.2 mg Q12H PRN PO Moderate constipation; Start 11/10/17 at 14:15 Bisacodyl (Dulcolax Supp) 10 mg DAILY PRN RECTAL SEVERE CONSITIPATION; Start at 14:15 Lactulose (Lactulose Liq) 30 ml DAILY PRN PO SEVERE CONSITIPATION; Start at 14:15 Sodium Chloride 1,000 ml @ 999 mls/hr BOLUS ONCE IV Last administered on 11/10at 16:40; Start 11/10/17 at 14:15; Stop 11/10/17 at 15:29; Status DC Sodium Chloride 1,000 ml @ 999 mls/hr BOLUS ONCE IV Last administered on 11/10at 17:40; Start 11/10/17 at 14:15; Stop 11/10/17 at 15:29; Status DC Sodium Chloride 1,000 ml @ 42 mls/hr [id number] IV ; Start 11/10/17 at 14:07; Stop 11/10/17 at 17:15; Status DC Sodium Chloride 1,000 ml @ 84 mls/hr [id number] IV ; Start 11/10/17 at 14:07; Stop 11/10/17 at 17:15; Status DC Sodium Chloride 1,000 ml @ 100 mls/hr Q10H IV ; Start 11/10/17 at 14:07; Stop 11/10/17 at 17:15; Status DC Sodium Chloride 1,000 ml @ 125 mls/hr Q8H IV ; Start 11/10/17 at 14:07; Stop at 17:16; Status DC Pharmacy Profile Note 0 ml @ 0 mls/hr UNSCH OTHER ; Start 11/10/17 at 14:15; Status Cancel Vancomycin HCl 1251 mg/Sodium Chloride 512.51 ml @ 250 mls/ hr Q12H IV ; Start 11/10/17 at 14:15; Status UNV Cefepime HCl 2000 mg/Sodium Chloride 100 ml @ 200 mls/hr Q8H IV Last administered on 11/20/17at 13:46; Start 11/10/17 at 14:15; Stop 11/20/17 at 14:13 ; Status DC Vancomycin HCl 750 mg/Sodium Chloride 257.5 ml @ 250 mls/hr ONCE ONCE IV Last administered on 11/10/17at 18:48; Start 11/10/17 at 16:00; Stop 11/10/17 at 17:01; Status DC Mupirocin (Bactroban Nasal 2% Oint) 1 applic BID NASAL Last administered on 11/26at 08:31; Start 11/10/17 at 21:00 Sodium Chloride 2,000 ml @ 999 mls/hr Q2H1M IV Last administered on 11/10/17at 17:45; Start 11/10/17 at 17:45; Stop 11/10/17 at 19:45; Status DC Vancomycin HCl 1250 mg/Sodium Chloride 262.5 ml @ 250 mls/hr Q18H IV Last administered on 11/13/17at 00:20; Start 11/11/17 at 12:00; Stop 11/13/17 at 10:56 ; Status DC Miscellaneous Information SPECIFIC LAB TO BE DRAWN:VANCOMYCIN TROUGH DATE TO... ONCE ONCE .XX Last administered on 11/12/17at 23:50; Start 11/12/17 at 23:45; Stop 11/12/17 at 23:46; Status DC Pharmacy Profile Note 0 ml @ 0 mls/hr UNSCH OTHER ; Start 11/11/17 at 15:30; Stop 11/15/17 at 08:10; Status DC Vancomycin HCl 1250 mg/Sodium Chloride 262.5 ml @ 250 mls/hr Q12H IV ; Start at 14:00; Stop 11/13/17 at 19:19; Status DC Vancomycin HCl 1250 mg/Sodium Chloride 262.5 ml @ 250 mls/hr Q12H IV Last administered on 11/14/17at 19:49; Start 11/13/17 at 20:00; Stop 11/15/17 at 08:10 ; Status DC Ampicillin Sodium 2000 mg/Sodium Chloride 100 ml @ 400 mls/hr Q4H IV Last administered on 11/20/17at 12:29; Start 11/15/17 at 09:00; Stop 11/20/17 at 12:35 ; Status DC Diatrizoate Meglum/ Diatrizoate Sod ( Gastroview Liq) 18 ml ONCE ONCE PO Last administered on 11/16/17at 10:04; Start 11/16/17 at 09:15; Stop 11/16/17 at 09:16; Status DC Iohexol (Omnipaque 350 Inj) 96 ml STK-MED ONCE IVCONTRAST Last administered on 11/16/17at 13:12; Start 11/16/17 at 13:12; Stop 11/16/17 at 13:13; Status DC Gadodiamide (Omniscan Pf Inj) 16 ml STK-MED ONCE IVCONTRAST Last administered on 11/17/17at 23:07; Start 11/17/17 at 22:34; Stop 11/17/17 at 22:36; Status DC Ampicillin Sodium 2000 mg/Sodium Chloride 100 ml @ 400 mls/hr Q4H IV ; Start at 17:00; Stop 11/20/17 at 17:00; Status DC Cefepime HCl 2000 mg/Sodium Chloride 100 ml @ 200 mls/hr Q8H IV Last administered on 12/12/17at 04:06; Start 11/20/17 at 20:00 Ampicillin Sodium 2000 mg/Sodium Chloride 100 ml @ 400 mls/hr Q4H IV Last administered on 12/12/17at 08:33; Start 11/20/17 at 16:00 A/P Problem List: (1) Bacteremia ICD Code: R78.81 - Bacteremia (2) UTI (urinary tract infection) ICD Code: N39.0 - Urinary tract infection, site not specified (3) CVA (cerebral vascular accident) ICD Code: I63.9 - Cerebral infarction, unspecified (4) Cocaine abuse ICD Code: F14.10 - Cocaine abuse, uncomplicated (5) Aortic valve endocarditis ICD Code: I35.8 - Other nonrheumatic aortic valve disorders Assessment and Plan This is a 52-year-old male patient with a known medical history of recent CVA and cocaine abuse: Aortic valve endocarditis Pseudomonas bacteremia Septic splenic/renal infarcts Continue on IV antibiotics as per infectious disease, on Ampicillin and Cefepime- stop date; 12/23/17 -per ID. 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 Steatosis on liver US -10/29 etoh. f/u PCP Swollen Ankle, much improved Xray negative for acute process Ultrasound negative for DVT. No sign of acute ankle infection. Continue to monitor. House Calls Nurse was consulted and following. Per bible reader recommend compress elevate and continue warm compress with continued ABXs since ankle is improving. House Calls Nurse stated that if there is any worsening of symptoms can reconsult. Anemia of chronic disease. H&H stable. Continue to monitor periodically. Social situation. Patient with history of IV drug use, noncompliance. Psychiatry following, does not meet criteria for inpt psychiatric admission DVT prophylaxis: Encourage ambulation. Discharge Planning PENDING COMPLETE ASSISTED ANTIBIOTICS Ramakrishna Borrego DO Dec 12, 2017 09:46
[2017-12-12 12:00] VITALS: BP 113/58; PULSE 81; RESP 18; TEMP 96.3; O2SAT 95
[2017-12-12 16:00] VITALS: BP 108/64; PULSE 83; RESP 18; TEMP 96.2; O2SAT 95
[2017-12-12 20:00] VITALS: BP 129/51; PULSE 85; RESP 16; TEMP 96.8; O2SAT 97
[2017-12-13] VITALS (7 sets, daily range): BP systolic 114–131; BP diastolic 48–59; PULSE 69–91; RESP 16–19; TEMP 95.6–98.5; O2SAT 93–98
[2017-12-13] MEDS: AMPICILLIN INJ 2,000 MG in SODIUM CHLORIDE 0.9% INJ 100 ML IV SCH ×6 (00:19→22:13)
[2017-12-13] MEDS: CEFEPIME INJ 2,000 MG in SODIUM CHLORIDE 0.9% INJ 100 ML IV SCH ×3 (04:28→22:04)
[2017-12-13] MEDS: HEPARIN SODIUM - SQ 10,000 UNITS/ML VIAL SQ SCH ×3 (06:10→22:11)
[2017-12-13 08:02] LABS: AUTOMATED NEUTROPHIL # 4.6 TH/MM3 (1.8-7.7); BASOPHIL # 0.1 TH/MM3 (0-0.2); BASOPHIL % 0.9 % (0.0-2.0); EOSINOPHIL # 0.4 TH/MM3 (0-0.4); EOSINOPHIL % 4.9 % (0.0-4.0); HEMATOCRIT 32.9 % (39.0-51.0); HEMOGLOBIN 11.4 GM/DL (13.0-17.0); LYMPHOCYTE # 2.4 TH/MM3 (1.0-4.8); MEAN CELL VOLUME 83.2 FL (80.0-100.0); MEAN CORPUSCULAR HEMOGLOBIN 28.8 PG (27.0-34.0); MEAN CORPUSCULAR HGB CONC 34.6 % (32.0-36.0); MONOCYTE # 0.7 TH/MM3 (0-0.9); NEUT % 56.2 % (16.0-70.0); PLATELET COUNT 260 TH/MM3 (150-450); RED BLOOD COUNT 3.95 MIL/MM3 (4.50-5.90); WHITE BLOOD COUNT 8.3 TH/MM3 (4.0-11.0)
[2017-12-13 08:25] LABS: ALBUMIN 2.9 GM/DL (3.4-5.0); AST (GOT) 12 U/L (15-37); BICARBONATE 25.7 MEQ/L (21.0-32.0); BLOOD UREA NITROGEN 18 MG/DL (7-18); CALCIUM 8.9 MG/DL (8.5-10.1); CHLORIDE 107 MEQ/L (98-107); CREATININE 1.13 MG/DL (0.60-1.30); GLOMERULAR FILTRATION RATE 69 ML/MIN (>89); GLUCOSE,RANDOM 78 MG/DL (74-106); SODIUM (NA) 141 MEQ/L (136-145)
[2017-12-13 08:29] LABS: ALKALINE PHOSPHATASE 79 U/L (45-117); ALT (GPT) 13 U/L (12-78); C-REACTIVE PROTEIN 2.97 MG/DL (0.00-0.30); TOTAL BILIRUBIN ADULT 0.3 MG/DL (0.2-1.0); TOTAL PROTEIN 7.6 GM/DL (6.4-8.2)
[2017-12-13] MEDS: DOCUSATE SODIUM 50 MG/SENNA 8.6 MG TAB PO SCH ×2 (08:53→21:00)
[2017-12-13] MEDS: SODIUM CHLORIDE 0.9% FLUSH 10 ML FLUSH IV FLUSH SCH ×2 (08:53→22:09)
[2017-12-13] MEDS: MUPIROCIN 2% OINT 1 APPLIC/GM SYR NASAL SCH ×2 (08:54→21:00)
--- NOTE | 2017-12-13 16:59 | HHI.PR ---
Subjective Remarks Patient has no new complaints. States he is doing okay. Objective Vitals Vital Signs Date Time Temp Pulse Resp B/P (MAP) Pulse Ox O2 Delivery O2 Flow Rate FiO2 12/13/17 15:57 96.8 91 19 121/59 (79) 97 12/13/17 11:57 95.6 83 19 129/48 (75) 97 12/13/17 08:00 96.0 82 19 119/59 (79) 98 12/13/17 00:00 97.2 86 16 114/53 (73) 96 12/12/17 20:00 96.8 85 16 129/51 (77) 97 I/O 12/12/17 12/12/17 12/12/17 12/13/17 12/13/17 12/13/17 07:00 15:00 23:00 07:00 15:00 23:00 Intake Total 440 ml 1400 ml 780 ml 480 ml Balance 440 ml 1400 ml 780 ml 480 ml Intake Oral 240 ml 1200 ml 480 ml 480 ml IV Total 200 ml 200 ml 300 ml # Voids 1 8 2 1 6 # Bowel Movements 0 1 0 Result Diagram: 12/13/17 0635 12/13/17 0635 Objective Remarks GENERAL: This is a well-nourished, well-developed patient, in no apparent distress. CARDIOVASCULAR: Normal rate and regular rhythm. 2 out of 6 aortic murmur. RESPIRATORY: Good respiratory efforts. Breath sounds equal and clear to auscultation bilaterally. GASTROINTESTINAL: Abdomen soft, non-tender, non-distended. Normal active bowel sounds MUSCULOSKELETAL: Extremities without cyanosis, or edema. NEURO: Alert & Oriented x4 to person, place, time, situation. Moves all ext x4 PSYCH: Appropriate mood and affect. A/P Problem List: (1) Bacteremia ICD Code: R78.81 - Bacteremia (2) UTI (urinary tract infection) ICD Code: N39.0 - Urinary tract infection, site not specified (3) CVA (cerebral vascular accident) ICD Code: I63.9 - Cerebral infarction, unspecified (4) Cocaine abuse ICD Code: F14.10 - Cocaine abuse, uncomplicated (5) Aortic valve endocarditis ICD Code: I35.8 - Other nonrheumatic aortic valve disorders Assessment and Plan 52-year-old male patient with a known medical history of recent CVA and cocaine abuse: Aortic valve endocarditis Pseudomonas bacteremia Septic splenic/renal infarcts Continue on IV antibiotics as per infectious disease, on Ampicillin and Cefepime- stop date; 12/23/17 -per ID. CBC, CMP and CRP weekly while on IV antibiotics - repeat labs on 12/20/17 History of CVA with expressive aphasia and multiple embolic episodes likely microabscesses Evaluated by neurology- continue rehab efforts. Steatosis on liver US -10/29 etoh. f/u PCP Swollen Ankle, much improved Xray negative for acute process Ultrasound negative for DVT. No sign of acute ankle infection. Continue to monitor. Analysis Evaluator was consulted and following. Per fine jewelry sales associate recommend compress elevate and continue warm compress with continued ABXs since ankle is improving. Analysis Evaluator stated that if there is any worsening of symptoms can reconsult. Anemia of chronic disease. H&H stable. Continue to monitor periodically. Social situation. Patient with history of IV drug use, noncompliance. Psychiatry following, does not meet criteria for inpt psychiatric admission DVT prophylaxis: Encourage ambulation. Discharge Planning Plan to discharge on 12/23/17 once antibiotics completed. Junaid Chau MD Dec 13, 2017 16:59
[2017-12-14] MEDS: AMPICILLIN INJ 2,000 MG in SODIUM CHLORIDE 0.9% INJ 100 ML IV SCH ×7 (01:08→23:52)
[2017-12-14 04:00] VITALS: BP 127/60; PULSE 85; RESP 18; TEMP 98.2; O2SAT 95
[2017-12-14] MEDS: CEFEPIME INJ 2,000 MG in SODIUM CHLORIDE 0.9% INJ 100 ML IV SCH ×3 (04:29→20:24)
[2017-12-14] MEDS: HEPARIN SODIUM - SQ 10,000 UNITS/ML VIAL SQ SCH ×3 (04:39→20:25)
[2017-12-14] MEDS: MUPIROCIN 2% OINT 1 APPLIC/GM SYR NASAL SCH ×2 (07:11→20:27)
[2017-12-14] MEDS: SODIUM CHLORIDE 0.9% FLUSH 10 ML FLUSH IV FLUSH SCH ×2 (07:55→20:26)
[2017-12-14] MEDS: DOCUSATE SODIUM 50 MG/SENNA 8.6 MG TAB PO SCH ×2 (07:55→20:25)
[2017-12-14 08:00] VITALS: BP 121/58; PULSE 89; RESP 20; TEMP 98.2; O2SAT 95
[2017-12-14 12:00] VITALS: BP 113/57; PULSE 85; RESP 20; TEMP 97.6; O2SAT 95
--- NOTE | 2017-12-14 12:38 | HHI.PR ---
Subjective Remarks no complains of chest pains or shortness of breath good po appetite no diarrhea Objective Vitals Vital Signs Date Time Temp Pulse Resp B/P (MAP) Pulse Ox O2 Delivery O2 Flow Rate FiO2 12/14/17 08:00 98.2 89 20 121/58 (79) 95 12/14/17 07:22 Room Air 12/14/17 04:00 98.2 85 18 127/60 (82) 95 12/14/17 00:00 Room Air 12/13/17 23:25 98.5 89 18 121/58 (79) 93 12/13/17 20:00 98.4 90 18 131/50 (77) 94 12/13/17 15:57 96.8 91 19 121/59 (79) 97 I/O 12/13/17 12/13/17 12/13/17 12/14/17 12/14/17 12/14/17 07:00 15:00 23:00 07:00 15:00 23:00 Intake Total 780 ml 780 ml 300 ml 480 ml Balance 780 ml 780 ml 300 ml 480 ml Intake Oral 480 ml 480 ml 480 ml IV Total 300 ml 300 ml 300 ml # Voids 1 6 1 # Bowel Movements 0 0 Result Diagram: 12/13/17 0635 12/13/17 0635 Imaging Last Impressions Lower Extremity Ultrasound 11/19/17 0000 Signed Impressions: Service Date/Time: Sunday, November 19, 2017 08:30 - CONCLUSION: Complex fluid collection in the posterior medial soft tissues measuring up to 1.2 cm, correlating with the findings seen on recent MRI. Seth Verma MD Ankle MRI 11/17/17 0000 Signed Impressions: Service Date/Time: Friday, November 17, 2017 21:51 - CONCLUSION: 1. Normal marrow edema with no evidence of osteomyelitis. 2. Soft tissue edema along the medial ankle with 1.2 cm focal area of abnormality which could represent a small abscess or cystic structure. This did not enhance. 3. Mild tenosynovitis involving the flexor digitorum longus tendon, tibialis posterior tendon and peroneus longus tendon Jerad Santos MD Chest CT 11/16/17 0000 Signed Impressions: Service Date/Time: Thursday, November 16, 2017 12:55 - CONCLUSION: 1. Trace right and small left pleural effusions with associated airspace consolidation at the lung bases. Differential considerations include aspiration or pneumonia with reactive effusions versus pleural effusions with compressive atelectasis. 2. Partially imaged right shaped defects in the azygous portions of the spleen which may reflect splenic infarcts. 3. Eccentric aortic valve calcifications consistent with prior history of aortic valve endocarditis. Russell Jose MD Abdomen/Pelvis CT 11/16/17 0000 Signed Impressions: Service Date/Time: Thursday, November 16, 2017 12:57 - CONCLUSION: 1. Stable probable embolic splenic and renal infarcts. 2. No acute abnormality or significant interval change. Specifically, no evidence for drainable abscess in the abdomen. Russell Jose MD Ankle X-Ray 11/14/17 0000 Signed Impressions: Service Date/Time: Tuesday, November 14, 2017 14:00 - CONCLUSION: Unremarkable examination of the right ankle. Valeriy Chapa MD Head CT 11/10/17 1036 Signed Impressions: Service Date/Time: Friday, November 10, 2017 12:16 - CONCLUSION: There is abnormal low density, likely representing cytotoxic edema, in the left frontal lobe. This very likely is related to a recent ischemic event. Reji Dasilva MD Chest X-Ray 11/10/17 1036 Signed Impressions: Service Date/Time: Friday, November 10, 2017 10:54 - CONCLUSION: No acute cardiopulmonary process. Kirby Trejo MD Liver Ultrasound 11/10/17 0000 Signed Impressions: Service Date/Time: Friday, November 10, 2017 14:47 - CONCLUSION: 1. Liver and spleen are both enlarged with multiple diffuse hepatic fatty infiltration. 2. Linear echogenic area within the lateral mid body of the spleen may represent a focal area of scarring. 3. Benign renal cortical cysts of the right kidney. 4. Small 3 mm gallbladder polyp. Gallbladder is otherwise sonographically normal. Kirby Trejo MD Brain MRI 11/10/17 0000 Signed Impressions: Service Date/Time: Friday, November 10, 2017 20:51 - CONCLUSION: The eighth of diminished attenuation involving the left frontoparietal junction on the patient's prior CT examination corresponds to acute infarction in addition to multiple other areas of new acute infarction bilaterally not present on the prior MRI dated 09/10/2017 and previously seen acute infarctions on the right side on that study have been evolved. Findings were discussed with the patient's nurse Chandan on 11/10/2017 9:19 PM. Fernanda Padilla MD Objective Remarks awake and alert, no acute distress anicteric lungs- no rales regular hythm, 4/6 systolic murmur left sternal border to apex abdomen soft, good bowel sounds extremities no edema neuro exam- unremarkable A/P Problem List: (1) Bacteremia ICD Code: R78.81 - Bacteremia (2) UTI (urinary tract infection) ICD Code: N39.0 - Urinary tract infection, site not specified (3) CVA (cerebral vascular accident) ICD Code: I63.9 - Cerebral infarction, unspecified (4) Cocaine abuse ICD Code: F14.10 - Cocaine abuse, uncomplicated (5) Aortic valve endocarditis ICD Code: I35.8 - Other nonrheumatic aortic valve disorders Assessment and Plan 52-year-old male patient with a known medical history of recent CVA and cocaine abuse: Aortic valve endocarditis Pseudomonas bacteremia Septic splenic/renal infarcts Continue on IV antibiotics as per infectious disease, on Ampicillin and Cefepime- stop date; 12/23/17 -per ID. 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 Steatosis on liver US -/ etoh. f/u PCP Swollen Ankle, much improved Xray negative for acute process Ultrasound negative for DVT. No sign of acute ankle infection. Continue to monitor. Multiple Spindle Router Operator was consulted and following. Per real estate agency licensee recommend compress elevate and continue warm compress with continued ABXs since ankle is improving. Multiple Spindle Router Operator stated that if there is any worsening of symptoms can reconsult. -patient up and ambulating independently Anemia of chronic disease. H&H stable. Continue to monitor periodically. Social situation. Patient with history of IV drug use, noncompliance. Psychiatry following, does not meet criteria for inpt psychiatric admission DVT prophylaxis: Encourage ambulation. Flakito Magallon MD Dec 14, 2017 12:38
[2017-12-14 16:30] VITALS: BP 120/57; PULSE 86; RESP 18; TEMP 98.2; O2SAT 95
[2017-12-14 20:00] VITALS: BP_SYST 133; BP_SYST 172; BP_DIAS 102; BP_DIAS 62; PULSE 85; PULSE 92; RESP 18; TEMP 97.7; TEMP 97.9; O2SAT 95; O2SAT 96
[2017-12-14] MEDS: SODIUM CHLORIDE 0.9% FLUSH 10 ML FLUSH IV FLUSH PRN (23:52)
[2017-12-15] VITALS: BP 141/64; PULSE 87; RESP 18; TEMP 98.3; O2SAT 93
[2017-12-15 04:00] VITALS: BP 126/57; PULSE 86; RESP 18; TEMP 97.4; O2SAT 93
[2017-12-15] MEDS: CEFEPIME INJ 2,000 MG in SODIUM CHLORIDE 0.9% INJ 100 ML IV SCH ×3 (04:00→20:00)
[2017-12-15] MEDS: AMPICILLIN INJ 2,000 MG in SODIUM CHLORIDE 0.9% INJ 100 ML IV SCH ×5 (05:38→21:19)
[2017-12-15] MEDS: SODIUM CHLORIDE 0.9% FLUSH 10 ML FLUSH IV FLUSH PRN (05:39)
[2017-12-15] MEDS: HEPARIN SODIUM - SQ 10,000 UNITS/ML VIAL SQ SCH ×3 (06:11→21:23)
[2017-12-15 08:00] VITALS: BP 127/63; PULSE 88; RESP 20; TEMP 97.4; O2SAT 94
[2017-12-15] MEDS: MUPIROCIN 2% OINT 1 APPLIC/GM SYR NASAL SCH ×2 (08:26→21:22)
[2017-12-15] MEDS: DOCUSATE SODIUM 50 MG/SENNA 8.6 MG TAB PO SCH ×2 (08:26→21:00)
[2017-12-15] MEDS: SODIUM CHLORIDE 0.9% FLUSH 10 ML FLUSH IV FLUSH SCH ×2 (09:56→21:22)
[2017-12-15 12:00] VITALS: BP 115/55; PULSE 87; RESP 20; TEMP 97.8; O2SAT 94
--- NOTE | 2017-12-15 13:20 | HHI.PR ---
Subjective Remarks no complains, good po no diarrhea no pain complains no shortness of brearth or chest pains Objective Vitals Vital Signs Date Time Temp Pulse Resp B/P (MAP) Pulse Ox O2 Delivery O2 Flow Rate FiO2 12/15/17 12:00 97.8 87 20 115/55 (75) 94 12/15/17 08:00 Room Air 12/15/17 08:00 97.4 88 20 127/63 (84) 94 12/15/17 04:00 97.4 86 18 126/57 (80) 93 12/15/17 00:00 98.3 87 18 141/64 (89) 93 12/14/17 20:07 Room Air 12/14/17 20:00 97.7 85 18 133/62 (85) 96 12/14/17 20:00 97.9 92 18 172/102 (125) 95 12/14/17 16:30 98.2 86 18 120/57 (78) 95 I/O 12/14/17 12/14/17 12/14/17 12/15/17 12/15/17 12/15/17 07:00 15:00 23:00 07:00 15:00 23:00 Intake Total 480 ml 300 ml 960 ml Balance 480 ml 300 ml 960 ml Intake Oral 480 ml 960 ml IV Total 300 ml # Voids 1 4 4 # Bowel Movements 0 0 Result Diagram: 12/13/17 0635 12/13/17 0635 Imaging Last Impressions Lower Extremity Ultrasound 11/19/17 0000 Signed Impressions: Service Date/Time: Sunday, November 19, 2017 08:30 - CONCLUSION: Complex fluid collection in the posterior medial soft tissues measuring up to 1.2 cm, correlating with the findings seen on recent MRI. Seth Verma MD Ankle MRI 11/17/17 0000 Signed Impressions: Service Date/Time: Friday, November 17, 2017 21:51 - CONCLUSION: 1. Normal marrow edema with no evidence of osteomyelitis. 2. Soft tissue edema along the medial ankle with 1.2 cm focal area of abnormality which could represent a small abscess or cystic structure. This did not enhance. 3. Mild tenosynovitis involving the flexor digitorum longus tendon, tibialis posterior tendon and peroneus longus tendon Jerad Santos MD Chest CT 11/16/17 0000 Signed Impressions: Service Date/Time: Thursday, November 16, 2017 12:55 - CONCLUSION: 1. Trace right and small left pleural effusions with associated airspace consolidation at the lung bases. Differential considerations include aspiration or pneumonia with reactive effusions versus pleural effusions with compressive atelectasis. 2. Partially imaged right shaped defects in the azygous portions of the spleen which may reflect splenic infarcts. 3. Eccentric aortic valve calcifications consistent with prior history of aortic valve endocarditis. Russell Jose MD Abdomen/Pelvis CT 11/16/17 0000 Signed Impressions: Service Date/Time: Thursday, November 16, 2017 12:57 - CONCLUSION: 1. Stable probable embolic splenic and renal infarcts. 2. No acute abnormality or significant interval change. Specifically, no evidence for drainable abscess in the abdomen. Russell Jose MD Ankle X-Ray 11/14/17 0000 Signed Impressions: Service Date/Time: Tuesday, November 14, 2017 14:00 - CONCLUSION: Unremarkable examination of the right ankle. Valeriy Chapa MD Head CT 11/10/17 1036 Signed Impressions: Service Date/Time: Friday, November 10, 2017 12:16 - CONCLUSION: There is abnormal low density, likely representing cytotoxic edema, in the left frontal lobe. This very likely is related to a recent ischemic event. Reji Dasilva MD Chest X-Ray 11/10/17 1036 Signed Impressions: Service Date/Time: Friday, November 10, 2017 10:54 - CONCLUSION: No acute cardiopulmonary process. Kirby Trejo MD Liver Ultrasound 11/10/17 0000 Signed Impressions: Service Date/Time: Friday, November 10, 2017 14:47 - CONCLUSION: 1. Liver and spleen are both enlarged with multiple diffuse hepatic fatty infiltration. 2. Linear echogenic area within the lateral mid body of the spleen may represent a focal area of scarring. 3. Benign renal cortical cysts of the right kidney. 4. Small 3 mm gallbladder polyp. Gallbladder is otherwise sonographically normal. Kirby Trejo MD Brain MRI 11/10/17 0000 Signed Impressions: Service Date/Time: Friday, November 10, 2017 20:51 - CONCLUSION: The eighth of diminished attenuation involving the left frontoparietal junction on the patient's prior CT examination corresponds to acute infarction in addition to multiple other areas of new acute infarction bilaterally not present on the prior MRI dated 09/10/2017 and previously seen acute infarctions on the right side on that study have been evolved. Findings were discussed with the patient's nurse Chandan on 11/10/2017 9:19 PM. Fernanda Padilla MD Objective Remarks awake and alert, no acute distress anicteric lungs- no rales regular rhythm, 4/6 systolic murmur left sternal border to apex abdomen soft, good bowel sounds extremities no edema neuro exam- unremarkable A/P Problem List: (1) Bacteremia ICD Code: R78.81 - Bacteremia (2) UTI (urinary tract infection) ICD Code: N39.0 - Urinary tract infection, site not specified (3) CVA (cerebral vascular accident) ICD Code: I63.9 - Cerebral infarction, unspecified (4) Cocaine abuse ICD Code: F14.10 - Cocaine abuse, uncomplicated (5) Aortic valve endocarditis ICD Code: I35.8 - Other nonrheumatic aortic valve disorders Assessment and Plan 52-year-old male patient with a known medical history of recent CVA and cocaine abuse: Aortic valve endocarditis Pseudomonas bacteremia Septic splenic/renal infarcts Continue on IV antibiotics as per infectious disease, on Ampicillin and Cefepime- stop date; 12/23/17 -per ID. 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 Steatosis on liver US -/ etoh. f/u PCP Swollen Ankle, much improved- Resolved Xray negative for acute process Ultrasound negative for DVT. No sign of acute ankle infection. Continue to monitor. Er Registrar was consulted and following. Per boat engines installer recommend compress elevate and continue warm compress with continued ABXs since ankle is improving. Er Registrar stated that if there is any worsening of symptoms can reconsult. -patient up and ambulating independently Anemia of chronic disease. H&H stable. Continue to monitor periodically. Social situation. Patient with history of IV drug use, noncompliance. Psychiatry following, does not meet criteria for inpt psychiatric admission DVT prophylaxis: Encourage ambulation. Flakito Magallon MD Dec 15, 2017 13:20
[2017-12-15 16:20] VITALS: BP 145/65; PULSE 92; RESP 18; TEMP 97.8; O2SAT 96
[2017-12-15 19:40] VITALS: BP 137/72; PULSE 90; RESP 17; TEMP 97.7; O2SAT 96
[2017-12-16 00:04] VITALS: BP 114/57; PULSE 88; RESP 18; TEMP 97.5; O2SAT 99
[2017-12-16] MEDS: AMPICILLIN INJ 2,000 MG in SODIUM CHLORIDE 0.9% INJ 100 ML IV SCH ×7 (00:05→23:48)
[2017-12-16 04:00] VITALS: BP 129/78; PULSE 64; RESP 18; TEMP 97.8; O2SAT 99
[2017-12-16] MEDS: CEFEPIME INJ 2,000 MG in SODIUM CHLORIDE 0.9% INJ 100 ML IV SCH ×3 (04:16→21:32)
[2017-12-16] MEDS: HEPARIN SODIUM - SQ 10,000 UNITS/ML VIAL SQ SCH ×3 (06:03→21:40)
[2017-12-16 08:00] VITALS: BP 143/65; PULSE 87; RESP 20; TEMP 98.3; O2SAT 99
[2017-12-16] MEDS: MUPIROCIN 2% OINT 1 APPLIC/GM SYR NASAL SCH ×2 (09:00→21:00)
[2017-12-16] MEDS: DOCUSATE SODIUM 50 MG/SENNA 8.6 MG TAB PO SCH ×2 (09:00→21:00)
[2017-12-16] MEDS: SODIUM CHLORIDE 0.9% FLUSH 10 ML FLUSH IV FLUSH SCH ×2 (09:30→21:32)
--- NOTE | 2017-12-16 09:58 | HHI.PR ---
Subjective Remarks "feel great" no complains Objective Vitals Vital Signs Date Time Temp Pulse Resp B/P (MAP) Pulse Ox O2 Delivery O2 Flow Rate FiO2 12/16/17 08:00 98.3 87 20 143/65 (91) 99 12/16/17 04:00 97.8 64 18 129/78 (95) 99 12/16/17 04:00 Room Air 12/16/17 00:04 Room Air 12/16/17 00:04 97.5 88 18 114/57 (76) 99 12/15/17 19:40 97.7 90 17 137/72 (93) 96 12/15/17 16:20 97.8 92 18 145/65 (91) 96 12/15/17 16:00 Room Air 12/15/17 12:00 Room Air 12/15/17 12:00 97.8 87 20 115/55 (75) 94 I/O 12/15/17 12/15/17 12/15/17 12/16/17 12/16/17 12/16/17 07:00 15:00 23:00 07:00 15:00 23:00 Intake Total 1220 ml 2010 ml Output Total 1000 ml Balance 1220 ml 1010 ml Intake Oral 1020 ml 1710 ml IV Total 200 ml 300 ml Output Urine Total 1000 ml # Voids 4 3 4 # Bowel Movements 0 1 Result Diagram: 12/13/17 0635 12/13/17 0635 Imaging Last Impressions Lower Extremity Ultrasound 11/19/17 0000 Signed Impressions: Service Date/Time: Sunday, November 19, 2017 08:30 - CONCLUSION: Complex fluid collection in the posterior medial soft tissues measuring up to 1.2 cm, correlating with the findings seen on recent MRI. Seth Verma MD Ankle MRI 11/17/17 0000 Signed Impressions: Service Date/Time: Friday, November 17, 2017 21:51 - CONCLUSION: 1. Normal marrow edema with no evidence of osteomyelitis. 2. Soft tissue edema along the medial ankle with 1.2 cm focal area of abnormality which could represent a small abscess or cystic structure. This did not enhance. 3. Mild tenosynovitis involving the flexor digitorum longus tendon, tibialis posterior tendon and peroneus longus tendon Jerad Santos MD Chest CT 11/16/17 0000 Signed Impressions: Service Date/Time: Thursday, November 16, 2017 12:55 - CONCLUSION: 1. Trace right and small left pleural effusions with associated airspace consolidation at the lung bases. Differential considerations include aspiration or pneumonia with reactive effusions versus pleural effusions with compressive atelectasis. 2. Partially imaged right shaped defects in the azygous portions of the spleen which may reflect splenic infarcts. 3. Eccentric aortic valve calcifications consistent with prior history of aortic valve endocarditis. Russell Jose MD Abdomen/Pelvis CT 11/16/17 0000 Signed Impressions: Service Date/Time: Thursday, November 16, 2017 12:57 - CONCLUSION: 1. Stable probable embolic splenic and renal infarcts. 2. No acute abnormality or significant interval change. Specifically, no evidence for drainable abscess in the abdomen. Russell Jose MD Ankle X-Ray 11/14/17 0000 Signed Impressions: Service Date/Time: Tuesday, November 14, 2017 14:00 - CONCLUSION: Unremarkable examination of the right ankle. Valeriy Chapa MD Head CT 11/10/17 1036 Signed Impressions: Service Date/Time: Friday, November 10, 2017 12:16 - CONCLUSION: There is abnormal low density, likely representing cytotoxic edema, in the left frontal lobe. This very likely is related to a recent ischemic event. Reji Dasilva MD Chest X-Ray 11/10/17 1036 Signed Impressions: Service Date/Time: Friday, November 10, 2017 10:54 - CONCLUSION: No acute cardiopulmonary process. Kirby Trejo MD Liver Ultrasound 11/10/17 0000 Signed Impressions: Service Date/Time: Friday, November 10, 2017 14:47 - CONCLUSION: 1. Liver and spleen are both enlarged with multiple diffuse hepatic fatty infiltration. 2. Linear echogenic area within the lateral mid body of the spleen may represent a focal area of scarring. 3. Benign renal cortical cysts of the right kidney. 4. Small 3 mm gallbladder polyp. Gallbladder is otherwise sonographically normal. Kirby Trejo MD Brain MRI 11/10/17 0000 Signed Impressions: Service Date/Time: Friday, November 10, 2017 20:51 - CONCLUSION: The eighth of diminished attenuation involving the left frontoparietal junction on the patient's prior CT examination corresponds to acute infarction in addition to multiple other areas of new acute infarction bilaterally not present on the prior MRI dated 09/10/2017 and previously seen acute infarctions on the right side on that study have been evolved. Findings were discussed with the patient's nurse Chandan on 11/10/2017 9:19 PM. Fernanda Padilla MD Objective Remarks awake and alert, no acute distress anicteric lungs- no rales regular rhythm, 4/6 systolic murmur left sternal border to apex abdomen soft, good bowel sounds extremities no edema neuro exam- unremarkable A/P Problem List: (1) Bacteremia ICD Code: R78.81 - Bacteremia (2) UTI (urinary tract infection) ICD Code: N39.0 - Urinary tract infection, site not specified (3) CVA (cerebral vascular accident) ICD Code: I63.9 - Cerebral infarction, unspecified (4) Cocaine abuse ICD Code: F14.10 - Cocaine abuse, uncomplicated (5) Aortic valve endocarditis ICD Code: I35.8 - Other nonrheumatic aortic valve disorders Assessment and Plan 52-year-old male patient with a known medical history of recent CVA and cocaine abuse: Aortic valve endocarditis Pseudomonas bacteremia Septic splenic/renal infarcts Continue on IV antibiotics as per infectious disease, on Ampicillin and Cefepime- stop date; 12/23/17 -per ID. CBC, CMP and CRP weekly while on IV antibiotics - repeat labs on 12/20/17 History of CVA with mild expressive aphasia and multiple embolic episodes likely microabscesses- speech spontaneous and clear continue rehab efforts. up and ambulating independently Steatosis on liver US -2/2 etoh. f/u PCP Swollen Ankle,- Resolved Xray negative for acute process Ultrasound negative for DVT. No sign of acute ankle infection. Continue to monitor. Bead Picker was consulted and following. Per sales representative business courses recommend compress elevate and continue warm compress with continued ABXs since ankle is improving. Bead Picker stated that if there is any worsening of symptoms can reconsult. -patient up and ambulating independently Anemia of chronic disease. H&H stable. Continue to monitor periodically. Social situation. Patient with history of IV drug use, noncompliance. Psychiatry following, does not meet criteria for inpt psychiatric admission DVT prophylaxis: Encourage ambulation. Flakito Magallon MD Dec 16, 2017 09:58
[2017-12-16 12:00] VITALS: BP 109/54; PULSE 83; RESP 20; TEMP 97.3; O2SAT 95
[2017-12-16 16:00] VITALS: BP 118/56; PULSE 87; RESP 18; TEMP 97.2; O2SAT 93
[2017-12-16 20:00] VITALS: BP 123/60; PULSE 84; RESP 17; TEMP 99; O2SAT 96
[2017-12-17] VITALS: BP 120/58; PULSE 86; RESP 18; TEMP 97.7; O2SAT 96
[2017-12-17] MEDS: AMPICILLIN INJ 2,000 MG in SODIUM CHLORIDE 0.9% INJ 100 ML IV SCH ×5 (03:50→20:25)
[2017-12-17] MEDS: CEFEPIME INJ 2,000 MG in SODIUM CHLORIDE 0.9% INJ 100 ML IV SCH ×3 (03:50→20:24)
[2017-12-17 04:00] VITALS: BP 106/54; PULSE 84; RESP 17; TEMP 97.5; O2SAT 93
[2017-12-17] MEDS: HEPARIN SODIUM - SQ 10,000 UNITS/ML VIAL SQ SCH ×3 (06:08→22:15)
[2017-12-17 08:00] VITALS: BP 113/53; PULSE 86; RESP 20; TEMP 97.5; O2SAT 96
[2017-12-17] MEDS: MUPIROCIN 2% OINT 1 APPLIC/GM SYR NASAL SCH ×2 (08:45→20:30)
[2017-12-17] MEDS: DOCUSATE SODIUM 50 MG/SENNA 8.6 MG TAB PO SCH ×2 (08:45→20:30)
[2017-12-17] MEDS: SODIUM CHLORIDE 0.9% FLUSH 10 ML FLUSH IV FLUSH SCH ×2 (08:45→20:30)
[2017-12-17 12:00] VITALS: BP 115/60; PULSE 90; RESP 20; TEMP 98.4; O2SAT 95
--- NOTE | 2017-12-17 12:52 | HHI.PR ---
Subjective Remarks no complains IV site- no signs of infection Objective Vitals Vital Signs Date Time Temp Pulse Resp B/P (MAP) Pulse Ox O2 Delivery O2 Flow Rate FiO2 12/17/17 12:00 98.4 90 20 115/60 (78) 95 12/17/17 08:00 97.5 86 20 113/53 (73) 96 12/17/17 07:15 96 Room Air 12/17/17 04:00 97.5 84 17 106/54 (71) 93 12/17/17 00:00 97.7 86 18 120/58 (78) 96 12/16/17 21:30 Room Air 12/16/17 20:00 99.0 84 17 123/60 (81) 96 12/16/17 16:00 97.2 87 18 118/56 (76) 93 I/O 12/16/17 12/16/17 12/16/17 12/17/17 12/17/17 12/17/17 07:00 15:00 23:00 07:00 15:00 23:00 Intake Total 2010 ml 100 ml 1600 ml 780 ml 100 ml Output Total 1000 ml Balance 1010 ml 100 ml 1600 ml 780 ml 100 ml Intake Oral 1710 ml 1200 ml 480 ml IV Total 300 ml 100 ml 400 ml 300 ml 100 ml Output Urine Total 1000 ml # Voids 4 10 7 # Bowel Movements 1 2 1 Result Diagram: 12/13/17 0635 12/13/17 0635 Imaging Last Impressions Lower Extremity Ultrasound 11/19/17 0000 Signed Impressions: Service Date/Time: Sunday, November 19, 2017 08:30 - CONCLUSION: Complex fluid collection in the posterior medial soft tissues measuring up to 1.2 cm, correlating with the findings seen on recent MRI. Seth Verma MD Ankle MRI 11/17/17 0000 Signed Impressions: Service Date/Time: Friday, November 17, 2017 21:51 - CONCLUSION: 1. Normal marrow edema with no evidence of osteomyelitis. 2. Soft tissue edema along the medial ankle with 1.2 cm focal area of abnormality which could represent a small abscess or cystic structure. This did not enhance. 3. Mild tenosynovitis involving the flexor digitorum longus tendon, tibialis posterior tendon and peroneus longus tendon Jerad Santos MD Chest CT 11/16/17 0000 Signed Impressions: Service Date/Time: Thursday, November 16, 2017 12:55 - CONCLUSION: 1. Trace right and small left pleural effusions with associated airspace consolidation at the lung bases. Differential considerations include aspiration or pneumonia with reactive effusions versus pleural effusions with compressive atelectasis. 2. Partially imaged right shaped defects in the azygous portions of the spleen which may reflect splenic infarcts. 3. Eccentric aortic valve calcifications consistent with prior history of aortic valve endocarditis. Russell Jose MD Abdomen/Pelvis CT 11/16/17 0000 Signed Impressions: Service Date/Time: Thursday, November 16, 2017 12:57 - CONCLUSION: 1. Stable probable embolic splenic and renal infarcts. 2. No acute abnormality or significant interval change. Specifically, no evidence for drainable abscess in the abdomen. Russell Jose MD Ankle X-Ray 11/14/17 0000 Signed Impressions: Service Date/Time: Tuesday, November 14, 2017 14:00 - CONCLUSION: Unremarkable examination of the right ankle. Valeriy Chapa MD Head CT 11/10/17 1036 Signed Impressions: Service Date/Time: Friday, November 10, 2017 12:16 - CONCLUSION: There is abnormal low density, likely representing cytotoxic edema, in the left frontal lobe. This very likely is related to a recent ischemic event. Reji Dasilva MD Chest X-Ray 11/10/17 1036 Signed Impressions: Service Date/Time: Friday, November 10, 2017 10:54 - CONCLUSION: No acute cardiopulmonary process. Kirby Trejo MD Liver Ultrasound 11/10/17 0000 Signed Impressions: Service Date/Time: Friday, November 10, 2017 14:47 - CONCLUSION: 1. Liver and spleen are both enlarged with multiple diffuse hepatic fatty infiltration. 2. Linear echogenic area within the lateral mid body of the spleen may represent a focal area of scarring. 3. Benign renal cortical cysts of the right kidney. 4. Small 3 mm gallbladder polyp. Gallbladder is otherwise sonographically normal. Kirby Trejo MD Brain MRI 11/10/17 0000 Signed Impressions: Service Date/Time: Friday, November 10, 2017 20:51 - CONCLUSION: The eighth of diminished attenuation involving the left frontoparietal junction on the patient's prior CT examination corresponds to acute infarction in addition to multiple other areas of new acute infarction bilaterally not present on the prior MRI dated 09/10/2017 and previously seen acute infarctions on the right side on that study have been evolved. Findings were discussed with the patient's nurse Chandan on 11/10/2017 9:19 PM. Fernanda Padilla MD Objective Remarks awake and alert, no acute distress anicteric lungs- no rales regular rhythm, 4/6 systolic murmur left sternal border to apex abdomen soft, good bowel sounds extremities no edema neuro exam- unremarkable A/P Problem List: (1) Bacteremia ICD Code: R78.81 - Bacteremia (2) UTI (urinary tract infection) ICD Code: N39.0 - Urinary tract infection, site not specified (3) CVA (cerebral vascular accident) ICD Code: I63.9 - Cerebral infarction, unspecified (4) Cocaine abuse ICD Code: F14.10 - Cocaine abuse, uncomplicated (5) Aortic valve endocarditis ICD Code: I35.8 - Other nonrheumatic aortic valve disorders Assessment and Plan 52-year-old male patient with a known medical history of recent CVA and cocaine abuse: Aortic valve endocarditis Pseudomonas bacteremia Septic splenic/renal infarcts Continue on IV antibiotics as per infectious disease, on Ampicillin and Cefepime- stop date; 12/23/17 -per ID. CBC, CMP and CRP weekly while on IV antibiotics - repeat labs on 12/20/17 History of CVA with mild expressive aphasia and multiple embolic episodes likely microabscesses- speech spontaneous and clear continue rehab efforts. up and ambulating independently Steatosis on liver US -2/2 etoh. f/u PCP Swollen Ankle,- Resolved Xray negative for acute process Ultrasound negative for DVT. No sign of acute ankle infection. Continue to monitor. Shellfish Shucker was consulted and following. Per spinning doffer recommend compress elevate and continue warm compress with continued ABXs since ankle is improving. Shellfish Shucker stated that if there is any worsening of symptoms can reconsult. -patient up and ambulating independently Anemia of chronic disease. H&H stable. Continue to monitor periodically. Social situation. Patient with history of IV drug use, noncompliance. Psychiatry following, does not meet criteria for inpt psychiatric admission DVT prophylaxis: Encourage ambulation. on heparin SQ Flakito Magallon MD Dec 17, 2017 12:51
[2017-12-17 16:00] VITALS: BP 120/56; PULSE 85; RESP 20; TEMP 98.5; O2SAT 96
[2017-12-17 20:00] VITALS: BP 112/56; PULSE 87; RESP 21; TEMP 97.6; O2SAT 96
[2017-12-18] VITALS: BP 116/61; PULSE 70; RESP 21; TEMP 97.7; O2SAT 99
[2017-12-18] MEDS: AMPICILLIN INJ 2,000 MG in SODIUM CHLORIDE 0.9% INJ 100 ML IV SCH ×7 (00:06→23:46)
[2017-12-18] MEDS: CEFEPIME INJ 2,000 MG in SODIUM CHLORIDE 0.9% INJ 100 ML IV SCH ×3 (03:50→21:00)
[2017-12-18 04:00] VITALS: BP 126/62; PULSE 89; RESP 20; TEMP 97.8; O2SAT 95
[2017-12-18] MEDS: HEPARIN SODIUM - SQ 10,000 UNITS/ML VIAL SQ SCH ×3 (05:48→22:05)
[2017-12-18 08:00] VITALS: BP 138/78; PULSE 87; RESP 20; TEMP 98.7; O2SAT 97
[2017-12-18] MEDS: DOCUSATE SODIUM 50 MG/SENNA 8.6 MG TAB PO SCH ×2 (08:35→21:00)
[2017-12-18] MEDS: SODIUM CHLORIDE 0.9% FLUSH 10 ML FLUSH IV FLUSH SCH ×2 (08:35→21:00)
[2017-12-18] MEDS: MUPIROCIN 2% OINT 1 APPLIC/GM SYR NASAL SCH ×3 (08:38→21:00)
--- NOTE | 2017-12-18 10:00 | HHI.PR ---
Subjective Remarks Follow-up on patient with aortic valve endocarditis, Pseudomonas bacteremia. Patient seen and examined. Patient states he feels good. He denies any acute medical complaints. He denies any fever or chills. Denies any chest pain or shortness of breath. Denies any nausea vomiting or abdominal pain. Denies any urinary difficulties. Denies any diarrhea or constipation. He is looking forward to possible discharge on the . Objective Vitals Vital Signs Date Time Temp Pulse Resp B/P (MAP) Pulse Ox O2 Delivery O2 Flow Rate FiO2 12/18/17 08:00 98.7 87 20 138/78 (98) 97 12/18/17 08:00 Room Air 2.00 21 12/18/17 04:00 Room Air 12/18/17 04:00 97.8 89 20 126/62 (83) 95 12/18/17 00:00 Room Air 12/18/17 00:00 97.7 70 21 116/61 (79) 99 12/17/17 20:25 Room Air 12/17/17 20:00 97.6 87 21 112/56 (74) 96 12/17/17 16:00 98.5 85 20 120/56 (77) 96 12/17/17 12:00 98.4 90 20 115/60 (78) 95 I/O 12/17/17 12/17/17 12/17/17 12/18/17 12/18/17 12/18/17 07:00 15:00 23:00 07:00 15:00 23:00 Intake Total 780 ml 200 ml 780 ml 540 ml Balance 780 ml 200 ml 780 ml 540 ml Intake Oral 480 ml 480 ml 240 ml IV Total 300 ml 200 ml 300 ml 300 ml # Voids 7 4 3 # Bowel Movements 1 Imaging Last Impressions Lower Extremity Ultrasound 11/19/17 0000 Signed Impressions: Service Date/Time: Sunday, November 19, 2017 08:30 - CONCLUSION: Complex fluid collection in the posterior medial soft tissues measuring up to 1.2 cm, correlating with the findings seen on recent MRI. Seth Verma MD Ankle MRI 11/17/17 0000 Signed Impressions: Service Date/Time: Friday, November 17, 2017 21:51 - CONCLUSION: 1. Normal marrow edema with no evidence of osteomyelitis. 2. Soft tissue edema along the medial ankle with 1.2 cm focal area of abnormality which could represent a small abscess or cystic structure. This did not enhance. 3. Mild tenosynovitis involving the flexor digitorum longus tendon, tibialis posterior tendon and peroneus longus tendon Jerad Santos MD Chest CT 11/16/17 0000 Signed Impressions: Service Date/Time: Thursday, November 16, 2017 12:55 - CONCLUSION: 1. Trace right and small left pleural effusions with associated airspace consolidation at the lung bases. Differential considerations include aspiration or pneumonia with reactive effusions versus pleural effusions with compressive atelectasis. 2. Partially imaged right shaped defects in the azygous portions of the spleen which may reflect splenic infarcts. 3. Eccentric aortic valve calcifications consistent with prior history of aortic valve endocarditis. Russell Jose MD Abdomen/Pelvis CT 11/16/17 0000 Signed Impressions: Service Date/Time: Thursday, November 16, 2017 12:57 - CONCLUSION: 1. Stable probable embolic splenic and renal infarcts. 2. No acute abnormality or significant interval change. Specifically, no evidence for drainable abscess in the abdomen. Russell Jose MD Ankle X-Ray 11/14/17 0000 Signed Impressions: Service Date/Time: Tuesday, November 14, 2017 14:00 - CONCLUSION: Unremarkable examination of the right ankle. Valeriy Chapa MD Head CT 11/10/17 1036 Signed Impressions: Service Date/Time: Friday, November 10, 2017 12:16 - CONCLUSION: There is abnormal low density, likely representing cytotoxic edema, in the left frontal lobe. This very likely is related to a recent ischemic event. Reji Dasilva MD Chest X-Ray 11/10/17 1036 Signed Impressions: Service Date/Time: Friday, November 10, 2017 10:54 - CONCLUSION: No acute cardiopulmonary process. Kirby Trejo MD Liver Ultrasound 11/10/17 0000 Signed Impressions: Service Date/Time: Friday, November 10, 2017 14:47 - CONCLUSION: 1. Liver and spleen are both enlarged with multiple diffuse hepatic fatty infiltration. 2. Linear echogenic area within the lateral mid body of the spleen may represent a focal area of scarring. 3. Benign renal cortical cysts of the right kidney. 4. Small 3 mm gallbladder polyp. Gallbladder is otherwise sonographically normal. Kirby Trejo MD Brain MRI 11/10/17 0000 Signed Impressions: Service Date/Time: Friday, November 10, 2017 20:51 - CONCLUSION: The eighth of diminished attenuation involving the left frontoparietal junction on the patient's prior CT examination corresponds to acute infarction in addition to multiple other areas of new acute infarction bilaterally not present on the prior MRI dated 09/10/2017 and previously seen acute infarctions on the right side on that study have been evolved. Findings were discussed with the patient's nurse Chandan on 11/10/2017 9:19 PM. Fernanda Padilla MD Objective Remarks GENERAL: Well-developed, well-nourished male patient in NAD. Awake and alert. Appears comfortable. Sitting up in bed watching TV. SKIN: Warm and dry. No rash. HEAD: Normocephalic. Atraumatic. EYES: EOMI. No scleral icterus. No injection or drainage. ENT: No nasal bleeding or discharge. Mucous membranes pink and moist. NECK: Trachea midline. CARDIOVASCULAR: Regular rate and rhythm. S1, S2 noted. (+)Murmur present. RESPIRATORY: Nonlabored. Clear to auscultation. Breath sounds equal bilaterally. GASTROINTESTINAL: Abdomen soft, non-tender, nondistended. Normoactive bowel sounds x4. MUSCULOSKELETAL: No obvious deformities. Extremities without clubbing, cyanosis , or edema. NEUROLOGICAL: Awake and alert. No obvious cranial nerve deficits. Motor grossly within normal limits. 5/5 muscle strength in bilateral upper and lower extremities. Normal speech. PSYCHIATRIC: Appropriate mood and affect; insight and judgment normal. Medications and IVs Current Medications Medications (Trade) Dose Ordered Sig/Vikas Route Start Time Stop Time Status Last Admin (NS Flush) 2 ml UNSCH PRN IV FLUSH 11/10/17 14:15 12/15/17 05:39 (NS Flush) 2 ml BID IV FLUSH 11/10/17 21:00 12/18/17 08:35 (Heparin Inj) 5,000 units Q8H SQ 11/10/17 14:15 12/18/17 05:48 (Narcan Inj) 0.4 mg UNSCH PRN IV PUSH 11/10/17 14:15 (Arabella-Colace) 1 tab BID PO 11/10/17 21:00 12/17/17 20:30 (Milk Of Magnesia Liq) 30 ml Q12H PRN PO 11/10/17 14:15 (Senokot) 17.2 mg Q12H PRN PO 11/10/17 14:15 (Dulcolax Supp) 10 mg DAILY PRN RECTAL 11/10/17 14:15 (Lactulose Liq) 30 ml DAILY PRN PO 11/10/17 14:15 (Bactroban Nasal 2% Oint) 1 applic BID NASAL 11/10/17 21:00 12/15/17 21:22 Cefepime HCl 2000 mg/Sodium Chloride 100 ml @ 200 mls/hr Q8H IV 11/20/17 20:00 12/18/17 03:50 Ampicillin Sodium 2000 mg/Sodium Chloride 100 ml @ 400 mls/hr Q4H IV 11/20/17 16:00 12/18/17 08:36 A/P Problem List: (1) Bacteremia ICD Code: R78.81 - Bacteremia (2) UTI (urinary tract infection) ICD Code: N39.0 - Urinary tract infection, site not specified (3) CVA (cerebral vascular accident) ICD Code: I63.9 - Cerebral infarction, unspecified (4) Cocaine abuse ICD Code: F14.10 - Cocaine abuse, uncomplicated (5) Aortic valve endocarditis ICD Code: I35.8 - Other nonrheumatic aortic valve disorders Assessment and Plan This is a 52-year-old male patient with a known medical history of recent CVA and cocaine abuse: Aortic valve endocarditis Pseudomonas bacteremia Septic splenic/renal infarcts Continue on IV antibiotics as per infectious disease, on Ampicillin and Cefepime- stop date; 12/23/17 -per ID. 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 Evaluated by neurology- continue rehab efforts. Steatosis on liver US -10/29 etoh. f/u PCP Swollen Ankle, resolved Xray negative for acute process Ultrasound negative for DVT. No sign of acute ankle infection. Continue to monitor. Theatre Instructor was consulted and following. Per grounds crew supervisor recommend compress elevate and continue warm compress with continued ABXs since ankle is improving. Theatre Instructor stated that if there is any worsening of symptoms can reconsult. Anemia of chronic disease. H&H stable. Continue to monitor periodically. Social situation. Patient with history of IV drug use, noncompliance. Psychiatry following, does not meet criteria for inpt psychiatric admission DVT prophylaxis: Encourage ambulation. On sq Heparin. Discharge Planning Self pay, pending completion of IV abx treatment Marissa Chandler Dec 18, 2017 10:00
[2017-12-18 12:00] VITALS: BP 112/56; PULSE 88; RESP 20; TEMP 98.3; O2SAT 95
[2017-12-18 16:00] VITALS: BP 112/57; PULSE 82; RESP 20; TEMP 98.2; O2SAT 97
[2017-12-18 20:00] VITALS: BP 113/55; PULSE 84; RESP 18; TEMP 97.8; O2SAT 95
[2017-12-19] VITALS: BP 116/56; PULSE 84; RESP 16; TEMP 98; O2SAT 95
[2017-12-19] MEDS: AMPICILLIN INJ 2,000 MG in SODIUM CHLORIDE 0.9% INJ 100 ML IV SCH ×6 (04:21→23:42)
[2017-12-19] MEDS: CEFEPIME INJ 2,000 MG in SODIUM CHLORIDE 0.9% INJ 100 ML IV SCH ×3 (05:13→21:25)
[2017-12-19] MEDS: HEPARIN SODIUM - SQ 10,000 UNITS/ML VIAL SQ SCH ×3 (05:49→21:27)
[2017-12-19 08:00] VITALS: BP 120/60; PULSE 88; RESP 20; TEMP 98; O2SAT 96
[2017-12-19] MEDS: DOCUSATE SODIUM 50 MG/SENNA 8.6 MG TAB PO SCH ×2 (08:42→21:00)
[2017-12-19] MEDS: MUPIROCIN 2% OINT 1 APPLIC/GM SYR NASAL SCH ×2 (08:42→21:00)
[2017-12-19] MEDS: SODIUM CHLORIDE 0.9% FLUSH 10 ML FLUSH IV FLUSH SCH ×2 (08:42→21:22)
[2017-12-19 12:00] VITALS: BP 113/56; PULSE 85; RESP 20; TEMP 98; O2SAT 96
--- NOTE | 2017-12-19 13:03 | HHI.PR ---
Subjective Remarks Resting comfortably in bed No event overnight Denied chest and or short of breath No fever or chills Objective Vitals Vital Signs Date Time Temp Pulse Resp B/P (MAP) Pulse Ox O2 Delivery O2 Flow Rate FiO2 12/19/17 12:00 98.0 85 20 113/56 (75) 96 12/19/17 08:00 98.0 88 20 120/60 (80) 96 12/19/17 08:00 Room Air 2.00 21 12/19/17 00:00 98.0 84 16 116/56 (76) 95 12/18/17 20:00 Room Air 12/18/17 20:00 97.8 84 18 113/55 (74) 95 12/18/17 16:00 98.2 82 20 112/57 (75) 97 I/O 12/18/17 12/18/17 12/18/17 12/19/17 12/19/17 12/19/17 07:00 15:00 23:00 07:00 15:00 23:00 Intake Total 540 ml 300 ml 680 ml 880 ml Balance 540 ml 300 ml 680 ml 880 ml Intake Oral 240 ml 480 ml 480 ml IV Total 300 ml 300 ml 200 ml 400 ml # Voids 3 5 2 # Bowel Movements 1 Objective Remarks GENERAL: This is a well-nourished, well-developed patient, in no apparent distress. SKIN: No rashes, warm and dry HEAD: Atraumatic. Normocephalic. EYES: Pupils equal round and reactive. Extraocular motions intact. No scleral icterus. ENT: Nose without bleeding, or drainage, Airway patent. NECK: Trachea midline. Supple CARDIOVASCULAR: Regular rate and rhythm without murmurs, gallops, or rubs. RESPIRATORY: Fair air entry bilaterally. No wheezes, rales, or rhonchi. GASTROINTESTINAL: Abdomen soft, non-tender, nondistended. Positive bowel sounds MUSCULOSKELETAL: Extremities without clubbing, cyanosis, or edema. Pedal pulses appreciated NEUROLOGICAL: Awake and alert. Moves all extremity. Normal speech.no focal neurological deficit A/P Problem List: (1) Bacteremia ICD Code: R78.81 - Bacteremia (2) UTI (urinary tract infection) ICD Code: N39.0 - Urinary tract infection, site not specified (3) CVA (cerebral vascular accident) ICD Code: I63.9 - Cerebral infarction, unspecified (4) Cocaine abuse ICD Code: F14.10 - Cocaine abuse, uncomplicated (5) Aortic valve endocarditis ICD Code: I35.8 - Other nonrheumatic aortic valve disorders Assessment and Plan This is a 52-year-old male patient with a known medical history of recent CVA and cocaine abuse: Aortic valve endocarditis Pseudomonas bacteremia Septic splenic/renal infarcts Continue on IV antibiotics as per infectious disease, on Ampicillin and Cefepime- stop date; 12/23/17 -per ID. CBC, CMP and CRP weekly while on IV antibiotics - 12/19: Continue current care, repeat above labs in a.m. History of CVA with expressive aphasia and multiple embolic episodes likely microabscesses No evidence of decompensation, speech is clear, concise and spontaneous, ambulating independently. Evaluated by neurology- continue rehab efforts. Steatosis on liver US -10/29 etoh. f/u PCP Swollen Ankle, resolved Xray negative for acute process Ultrasound negative for DVT. No sign of acute ankle infection. Continue to monitor. Microfilm Duplicating Unit Supervisor was consulted and following. Per machinist general recommend compress elevate and continue warm compress with continued ABXs since ankle is improving. Microfilm Duplicating Unit Supervisor stated that if there is any worsening of symptoms can reconsult. Anemia of chronic disease. H&H stable. Continue to monitor periodically. Social situation. Patient with history of IV drug use, noncompliance. Psychiatry following, does not meet criteria for inpt psychiatric admission DVT prophylaxis: Encourage ambulation. On sq Heparin. Kenya Ledesma MD Dec 19, 2017 13:03
[2017-12-19 16:00] VITALS: BP 111/56; PULSE 91; RESP 20; TEMP 97.9; O2SAT 95
[2017-12-19 20:00] VITALS: BP 115/57; PULSE 90; RESP 18; TEMP 98.1; O2SAT 96
[2017-12-19] MEDS: SODIUM CHLORIDE 0.9% FLUSH 10 ML FLUSH IV FLUSH PRN ×2 (21:22→23:44)
[2017-12-19 23:45] VITALS: BP 123/60; PULSE 95; RESP 18; TEMP 97.8; O2SAT 94
[2017-12-20 04:00] VITALS: BP 103/51; PULSE 85; RESP 18; TEMP 97.2; O2SAT 97
[2017-12-20] MEDS: AMPICILLIN INJ 2,000 MG in SODIUM CHLORIDE 0.9% INJ 100 ML IV SCH ×5 (04:12→20:06)
[2017-12-20] MEDS: CEFEPIME INJ 2,000 MG in SODIUM CHLORIDE 0.9% INJ 100 ML IV SCH ×3 (04:14→20:06)
[2017-12-20] MEDS: HEPARIN SODIUM - SQ 10,000 UNITS/ML VIAL SQ SCH ×3 (04:14→22:14)
[2017-12-20 08:02] VITALS: BP 132/65; PULSE 86; RESP 17; TEMP 97.9; O2SAT 93
[2017-12-20] MEDS: MUPIROCIN 2% OINT 1 APPLIC/GM SYR NASAL SCH ×2 (08:29→20:06)
[2017-12-20] MEDS: DOCUSATE SODIUM 50 MG/SENNA 8.6 MG TAB PO SCH ×2 (08:29→20:06)
[2017-12-20] MEDS: SODIUM CHLORIDE 0.9% FLUSH 10 ML FLUSH IV FLUSH SCH ×2 (08:31→20:06)
[2017-12-20 12:02] VITALS: BP 124/61; PULSE 86; RESP 18; TEMP 97.8; O2SAT 96
--- NOTE | 2017-12-20 14:03 | HHI.PR ---
Subjective Remarks Resting comfortably in bed No event overnight Denied chest and or short of breath No fever or chills Objective Vitals Vital Signs Date Time Temp Pulse Resp B/P (MAP) Pulse Ox O2 Delivery O2 Flow Rate FiO2 12/20/17 12:02 97.8 86 18 124/61 (82) 96 12/20/17 08:02 97.9 86 17 132/65 (87) 93 12/20/17 08:00 Room Air 12/20/17 04:00 97.2 85 18 103/51 (68) 97 12/19/17 23:45 97.8 95 18 123/60 (81) 94 12/19/17 23:45 Room Air 12/19/17 20:00 98.1 90 18 115/57 (76) 96 12/19/17 20:00 Room Air 12/19/17 16:00 97.9 91 20 111/56 (74) 95 I/O 12/19/17 12/19/17 12/19/17 12/20/17 12/20/17 12/20/17 07:00 15:00 23:00 07:00 15:00 23:00 Intake Total 880 ml 480 ml Balance 880 ml 480 ml Intake Oral 480 ml 480 ml IV Total 400 ml # Voids 2 4 4 Objective Remarks GENERAL: This is a well-nourished, well-developed patient, in no apparent distress. SKIN: No rashes, warm and dry HEAD: Atraumatic. Normocephalic. EYES: Pupils equal round and reactive. Extraocular motions intact. No scleral icterus. ENT: Nose without bleeding, or drainage, Airway patent. NECK: Trachea midline. Supple CARDIOVASCULAR: Regular rate and rhythm without murmurs, gallops, or rubs. RESPIRATORY: Fair air entry bilaterally. No wheezes, rales, or rhonchi. GASTROINTESTINAL: Abdomen soft, non-tender, nondistended. Positive bowel sounds MUSCULOSKELETAL: Extremities without clubbing, cyanosis, or edema. Pedal pulses appreciated NEUROLOGICAL: Awake and alert. Moves all extremity. Normal speech.no focal neurological deficit A/P Problem List: (1) Bacteremia ICD Code: R78.81 - Bacteremia (2) UTI (urinary tract infection) ICD Code: N39.0 - Urinary tract infection, site not specified (3) CVA (cerebral vascular accident) ICD Code: I63.9 - Cerebral infarction, unspecified (4) Cocaine abuse ICD Code: F14.10 - Cocaine abuse, uncomplicated (5) Aortic valve endocarditis ICD Code: I35.8 - Other nonrheumatic aortic valve disorders Assessment and Plan This is a 52-year-old male patient with a known medical history of recent CVA and cocaine abuse: Aortic valve endocarditis Pseudomonas bacteremia Septic splenic/renal infarcts Continue on IV antibiotics as per infectious disease, on Ampicillin and Cefepime- stop date; 12/23/17 -per ID. CBC, CMP and CRP weekly while on IV antibiotics - 12/19: Continue current care, repeat above labs in a.m. 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 Evaluated by neurology- continue rehab efforts. Steatosis on liver US -10/29 etoh. f/u PCP Swollen Ankle, resolved Xray negative for acute process Ultrasound negative for DVT. No sign of acute ankle infection. Continue to monitor. Crew Leader Gluing was consulted and following. Per detective recommend compress elevate and continue warm compress with continued ABXs since ankle is improving. Crew Leader Gluing stated that if there is any worsening of symptoms can reconsult. Anemia of chronic disease. H&H stable. Continue to monitor periodically. Social situation. Patient with history of IV drug use, noncompliance. Psychiatry following, does not meet criteria for inpt psychiatric admission DVT prophylaxis: Encourage ambulation. On sq Heparin. Kenya Ledesma MD Dec 20, 2017 14:03
[2017-12-20 16:02] VITALS: BP 112/56; PULSE 87; RESP 18; TEMP 98.5; O2SAT 96
[2017-12-20 20:00] VITALS: BP 132/63; PULSE 90; RESP 18; TEMP 98.7; O2SAT 99
[2017-12-21] VITALS: BP 108/66; PULSE 82; RESP 16; TEMP 98.9; O2SAT 97
[2017-12-21] MEDS: AMPICILLIN INJ 2,000 MG in SODIUM CHLORIDE 0.9% INJ 100 ML IV SCH ×7 (00:07→23:59)
[2017-12-21] MEDS: CEFEPIME INJ 2,000 MG in SODIUM CHLORIDE 0.9% INJ 100 ML IV SCH ×3 (03:37→20:55)
[2017-12-21 04:00] VITALS: BP 120/59; PULSE 84; RESP 17; TEMP 98.4; O2SAT 100
[2017-12-21] MEDS: HEPARIN SODIUM - SQ 10,000 UNITS/ML VIAL SQ SCH ×3 (05:20→20:57)
[2017-12-21] MEDS: MUPIROCIN 2% OINT 1 APPLIC/GM SYR NASAL SCH ×2 (07:56→20:57)
[2017-12-21 08:00] VITALS: BP 128/60; PULSE 81; RESP 20; TEMP 97.5; O2SAT 97
[2017-12-21] MEDS: DOCUSATE SODIUM 50 MG/SENNA 8.6 MG TAB PO SCH ×2 (09:00→20:58)
[2017-12-21] MEDS: SODIUM CHLORIDE 0.9% FLUSH 10 ML FLUSH IV FLUSH SCH ×2 (09:39→20:57)
[2017-12-21 12:00] VITALS: BP 135/63; PULSE 79; RESP 20; TEMP 98; O2SAT 96
--- NOTE | 2017-12-21 15:33 | HHI.HCPN ---
Reason for visit a. To assist with evaluation and management of symptoms including: confusion b. To assist medical decision maker(s) with: better understanding of current medical conditions; weighing benefits/burdens of medical treatment options; making medical treatment decisions. Subjective/Interval History Pt seen today to follow up on goals, discharge planning. Received a voicemail from patient's mother before my arrival on patient unit. She has questions regarding possible discharge and possible Medicaid application. Patient stable. Continues on IV antibiotics cefepime, ampicillin to be completed 12/23, expected to be medically discharged after completion. Last labs 12/13 stable/baseline. Pt seen in room no visitors present. He is alert, oriented and appropriate. Indicates he understands he is supposed to be discharged in a few days when his antibiotics are done. He appears to have reasonable insight into hospitalization believes he has been here 45 days (it has been 41 days). Tells me his mother was here about an hour or 2 ago to see him. 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 He has questions regarding the timing of discharge as some of his antibiotics fall in the evening he wonders if he will still be able to discharge after evening administration-advised this can be discussed first with medical attending and with case management who will assist with disposition. He is generally able to articulate his thoughts though at times has to word search and is aware of this. He is moving all 4 extremities. He denies dyspnea. Denies chest pain. Ambulates around the halls well. Denies GI complaints. Endorses good appetite. Denies anxiety or confusion. Feels his speech is back to his usual. Discussed with case management, she is reviewing medications for timing of discharge she indicates they may coordinate with ID on the final timing of last antibiotic doses. She is reviewing file for possibility that he was evaluated for Medicaid; does not appear that he would qualify he may or may not have been evaluated, she will continue to review further and will follow up with the patient mother regarding this. . Family/friend interactions Following exam and discussion with case management callbacks to patient mother. Updated her on current condition, assessment, treatments in place and completion of antibiotics due 12/23. All questions answered. She did have a question regarding possible Medicaid evaluation or application she indicated this may have been initiated in the ED earlier this year on a previous admission she wonders a status of this. I advised that case management was looking into this and would follow with her further but did not appear patient may qualify for Medicaid. She asks if the infection is gone, advised that by all labs, markers, symptoms that we are following he appears to be free of infection . Advised that he does remain at risk for future infection, and he may continue to have some deficits secondary to stroke. She is not certain where he will be living when he is discharged he wants to try to get back to work but she does not know where he plans on living. She does remain in communication with him. All questions answered to the best of my ability, case management will be following up with her. . Advance Directives Living Will: Never completed Health Care Surrogate: Copy in medical record Durable Power of [employer] Supply Specialist: Never completed Objective Vital Signs Date Time Temp Pulse Resp B/P (MAP) Pulse Ox O2 Delivery O2 Flow Rate FiO2 12/21/17 15:01 Room Air 12/21/17 12:00 98.0 79 20 135/63 (87) 96 12/21/17 10:32 Room Air 12/21/17 08:00 97.5 81 20 128/60 (82) 97 12/21/17 04:00 Room Air 12/21/17 04:00 98.4 84 17 120/59 (79) 100 12/21/17 00:00 Room Air 12/21/17 00:00 98.9 82 16 108/66 (80) 97 12/20/17 20:05 Room Air 12/20/17 20:00 98.7 90 18 132/63 (86) 99 12/20/17 16:02 98.5 87 18 112/56 (74) 96 12/20/17 16:00 Room Air Intake & Output 12/21/17 12/21/17 07:00 19:00 Intake Total 820 ml Balance 820 ml Intake Oral 420 ml IV Total 400 ml # Voids 3 # Bowel Movements 0 Physical Exam CONSTITUTIONAL/GENERAL: This is an adequately nourished patient,alert , oriented TUBES/LINES/DRAINS:PIV UE. SKIN: No jaundice, rashes, or lesions. No wounds seen anteriorly. Skin warm/dry HEAD: Atraumatic. Normocephalic. CARDIOVASCULAR: Regular rate and rhythm without murmur. Peripheral pulses symmetric.no peripheral edema RESPIRATORY/CHEST: Symmetric, unlabored respirations on room air. Clear to auscultation. Breath sounds equal bilaterally. GASTROINTESTINAL: Abdomen soft,flat, nondistended. Bowel sounds present. MUSCULOSKELETAL: Extremities without clubbing, cyanosis. no edema. +thin. NEUROLOGICAL: Awake and alert.Oriented x-3. speaks in complete sentences, appears to have reasonable insight to conditions/hospitalization. At times searches for words. Moves all 4 extremities. PSYCHIATRIC: no apparent hallucinations or other psychotic thought process. Diagnostic Tests Laboratory Laboratory Tests Test 11/10/17 14:20 11/10/17 15:40 11/10/17 21:54 11/11/17 05:12 Urine Color DARK-YELLOW Urine Turbidity HAZY Urine pH 5.0 Urine Specific [place] 1.021 Urine Protein 30 mg/dL Urine Glucose (UA) TRACE mg/dL Urine Ketones NEG mg/dL Urine Occult Blood SMALL Urine Nitrite NEG Urine Bilirubin NEG Urine Urobilinogen 2.0 MG/DL Urine Leukocyte Esterase SMALL Urine RBC 8 /hpf Urine WBC 14 /hpf Urine Squamous Epithelial Cells <1 /hpf Urine Bacteria MOD /hpf Urine Hyaline Casts 7 /lpf Urine White Blood Cell Casts 7 /lpf Urine Mucus FEW /lpf Microscopic Urinalysis Comment CATH-CULTURE IND Nasal Screen MRSA (PCR) MRSA NOT DETECTED Hepatitis A IgM Antibody NEGATIVE Hepatitis B Surface Antigen NEGATIVE Hepatitis B Core IgM Antibody NEGATIVE Hepatitis C Antibody NEGATIVE Prothrombin Time 13.0 SEC Prothromb Time International Ratio 1.3 RATIO Lactic Acid Level 1.0 mmol/L Blood Urea Nitrogen 52 MG/DL Creatinine 1.74 MG/DL Random Glucose 99 MG/DL Total Protein 6.3 GM/DL Albumin 2.2 GM/DL Calcium Level 7.7 MG/DL Alkaline Phosphatase 129 U/L Aspartate Amino Transf (AST/SGOT) 140 U/L Alanine Aminotransferase (ALT/SGPT) 148 U/L Total Bilirubin 0.7 MG/DL Direct Bilirubin 0.4 MG/DL Sodium Level 135 MEQ/L Potassium Level 3.6 MEQ/L Chloride Level 105 MEQ/L Carbon Dioxide Level 16.8 MEQ/L Indirect Bilirubin 0.3 MG/DL Triglycerides Level 235 MG/DL Cholesterol Level 108 MG/DL LDL Cholesterol 53 MG/DL HDL Cholesterol 7.6 MG/DL Cholesterol/HDL Ratio 14.21 RATIO Lipase 176 U/L Random Vancomycin Level 14.1 COMMENT Test 11/12/17 04:55 11/12/17 23:50 11/18/17 04:58 12/06/17 05:53 Hemoglobin A1c 5.4 % Free Thyroxine 2.23 NG/DL Thyroid Stimulating Hormone 3rd Gen 1.760 uIU/ML Vancomycin Level Trough 8.7 MCG/ML Blood Urea Nitrogen 9 MG/DL Creatinine 0.98 MG/DL Random Glucose 95 MG/DL Albumin 2.1 GM/DL Calcium Level 8.2 MG/DL Phosphorus Level 3.3 MG/DL Magnesium Level 2.2 MG/DL Sodium Level 140 MEQ/L Potassium Level 3.7 MEQ/L Chloride Level 106 MEQ/L Carbon Dioxide Level 25.8 MEQ/L B-Type Natriuretic Peptide 741 PG/ML Hematology Comments Test 12/13/17 06:35 White Blood Count 8.3 TH/MM3 Red Blood Count 3.95 MIL/MM3 Hemoglobin 11.4 GM/DL Hematocrit 32.9 % Mean Corpuscular Volume 83.2 FL Mean Corpuscular Hemoglobin 28.8 PG Mean Corpuscular Hemoglobin Concent 34.6 % Red Cell Distribution Width 16.0 % Platelet Count 260 TH/MM3 Mean Platelet Volume 8.0 FL Neutrophils (%) (Auto) 56.2 % Lymphocytes (%) (Auto) 29.0 % Monocytes (%) (Auto) 9.0 % Eosinophils (%) (Auto) 4.9 % Basophils (%) (Auto) 0.9 % Neutrophils # (Auto) 4.6 TH/MM3 Lymphocytes # (Auto) 2.4 TH/MM3 Monocytes # (Auto) 0.7 TH/MM3 Eosinophils # (Auto) 0.4 TH/MM3 Basophils # (Auto) 0.1 TH/MM3 CBC Comment DIFF FINAL Differential Comment Blood Urea Nitrogen 18 MG/DL Creatinine 1.13 MG/DL Random Glucose 78 MG/DL Total Protein 7.6 GM/DL Albumin 2.9 GM/DL Calcium Level 8.9 MG/DL Alkaline Phosphatase 79 U/L Aspartate Amino Transf (AST/SGOT) 12 U/L Alanine Aminotransferase (ALT/SGPT) 13 U/L Total Bilirubin 0.3 MG/DL Sodium Level 141 MEQ/L Potassium Level 3.8 MEQ/L Chloride Level 107 MEQ/L Carbon Dioxide Level 25.7 MEQ/L Anion Gap 8 MEQ/L Estimat Glomerular Filtration Rate 69 ML/MIN C-Reactive Protein 2.97 MG/DL Microbiology Microbiology Date/Time Source Procedure Growth Status 11/13/17 05:45 Blood Peripheral Aerobic Blood Culture - Final NO GROWTH IN 5 DAYS Complete 11/13/17 05:45 Blood Peripheral Anaerobic Blood Culture - Final NO GROWTH IN 5 DAYS Complete 11/10/17 11:15 Nasal Washing Influenza Types A,B Antigen (SERENITY) - Final NEGATIVE FOR FLU A AND B ANTIGEN.... Complete 11/10/17 14:20 Urine Catheterized Urine Urine Culture - Final NO GROWTH IN 48 HOURS. Complete Imaging Last Impressions Lower Extremity Ultrasound 11/19/17 0000 Signed Impressions: Service Date/Time: Sunday, November 19, 2017 08:30 - CONCLUSION: Complex fluid collection in the posterior medial soft tissues measuring up to 1.2 cm, correlating with the findings seen on recent MRI. Seth Veram MD Ankle MRI 11/17/17 0000 Signed Impressions: Service Date/Time: Friday, November 17, 2017 21:51 - CONCLUSION: 1. Normal marrow edema with no evidence of osteomyelitis. 2. Soft tissue edema along the medial ankle with 1.2 cm focal area of abnormality which could represent a small abscess or cystic structure. This did not enhance. 3. Mild tenosynovitis involving the flexor digitorum longus tendon, tibialis posterior tendon and peroneus longus tendon Jerad Santos MD Chest CT 11/16/17 0000 Signed Impressions: Service Date/Time: Thursday, November 16, 2017 12:55 - CONCLUSION: 1. Trace right and small left pleural effusions with associated airspace consolidation at the lung bases. Differential considerations include aspiration or pneumonia with reactive effusions versus pleural effusions with compressive atelectasis. 2. Partially imaged right shaped defects in the azygous portions of the spleen which may reflect splenic infarcts. 3. Eccentric aortic valve calcifications consistent with prior history of aortic valve endocarditis. Russell Jose MD Abdomen/Pelvis CT 11/16/17 0000 Signed Impressions: Service Date/Time: Thursday, November 16, 2017 12:57 - CONCLUSION: 1. Stable probable embolic splenic and renal infarcts. 2. No acute abnormality or significant interval change. Specifically, no evidence for drainable abscess in the abdomen. Russell Jose MD Ankle X-Ray 11/14/17 0000 Signed Impressions: Service Date/Time: Tuesday, November 14, 2017 14:00 - CONCLUSION: Unremarkable examination of the right ankle. Valeriy Chapa MD Head CT 11/10/17 1036 Signed Impressions: Service Date/Time: Friday, November 10, 2017 12:16 - CONCLUSION: There is abnormal low density, likely representing cytotoxic edema, in the left frontal lobe. This very likely is related to a recent ischemic event. Reji Dasilva MD Chest X-Ray 11/10/17 1036 Signed Impressions: Service Date/Time: Friday, November 10, 2017 10:54 - CONCLUSION: No acute cardiopulmonary process. Kirby Trejo MD Liver Ultrasound 11/10/17 0000 Signed Impressions: Service Date/Time: Friday, November 10, 2017 14:47 - CONCLUSION: 1. Liver and spleen are both enlarged with multiple diffuse hepatic fatty infiltration. 2. Linear echogenic area within the lateral mid body of the spleen may represent a focal area of scarring. 3. Benign renal cortical cysts of the right kidney. 4. Small 3 mm gallbladder polyp. Gallbladder is otherwise sonographically normal. Kirby Trejo MD Brain MRI 11/10/17 0000 Signed Impressions: Service Date/Time: Friday, November 10, 2017 20:51 - CONCLUSION: The eighth of diminished attenuation involving the left frontoparietal junction on the patient's prior CT examination corresponds to acute infarction in addition to multiple other areas of new acute infarction bilaterally not present on the prior MRI dated 09/10/2017 and previously seen acute infarctions on the right side on that study have been evolved. Findings were discussed with the patient's nurse Chandan on 11/10/2017 9:19 PM. Fernanda Padilla MD Assessment and Plan Disease Oriented Problem List: (1) Severe sepsis (2) CVA (cerebral vascular accident) (3) Cocaine abuse (4) Aortic valve endocarditis (5) Bacteremia Symptom Scale: (1) Confusion (2) Pain Pertinent Non-Medical Issues Psychosocial: Spiritual: Legal:Pt admitted w confusion, aphasia. S/p recent CVA, + new areas infarct. Mental status fluctuates. Not clear he has full insight and ability to make decisions, though he may be able to participate in shared decision making. Psych eval pending. Mother is designated HCS. Ethical issues impacting care:no ethical issues identified Important Contacts Mother Bhargavi Wallis [phone] daughter Agnes . Prognosis This pt was admitted for AMS, fever. He has findings of new (septic emboli) CVA , endocarditis, ongoing IV tx per ID. Pt remains very high risk for ongoing complications secondary to infectious process, even with ongoing aggressive treatment. . Code Status: No Code Plan * Legal decision maker:Pt admitted w confusion, aphasia. S/p recent CVA, + new areas infarct. Mental status fluctuates. Not clear he has full insight and ability to make decision. Psych eval completed, pt not capacitated to make his decisions at this time. Mother is designated HCS. Pt neurological status slowly improving, he may regain ability to participate in decision making. . * Goals: Goals remain aggressive short of resuscitation. Patient now more oriented and able to make decisions. He is in agreement to stay in the hospital until he completes recommended antibiotic course 12/23. He is not certain where he will be going to live after this. He indicates he wishes to adhere to whatever treatments are recommended for him to maintain his health. I have updated his mother * CODE STATUS: DNR * SYMPTOMS: --confusion/AMS- recent CVA, + new embolic CVA this admission. mental status fluctuates. Hx drug abuse, "none recently". --pain- Prev w Pain to RLE , imaging negative, edema improved, s/p podiatry eval. denies pain on my visit. * Palliative care will continue to follow during hospital course as condition evolves, to assist patient/decision-maker with understanding of medical conditions, weighing benefits/burdens of treatment options, for clarification of goals of treatment. Additionally will assist with any symptoms of palliative concern . Attestation To help prompt me to consider important information that might be impacting today's encounter and assessment, information from prior notes written by myself or my colleagues may have been "brought forward" into today's note. My signature on this note, however, is an attestation that I personally performed the exam, history, and/or decision-making noted today, and, unless otherwise indicated, the interactions with patient, family, and staff as well as the review of records all occurred today. I also attest that the listed assessment and stated plan reflect my best clinical judgment today based on the combination of historical information, prior notes, and today's exam/ interactions. When time spent is documented, it refers only to time spent today by the signer, or if indicated, combined time spent today by collaborating physician/nurse practitioner. Ana Rodarte Dec 21, 2017 15:33
[2017-12-21 16:00] VITALS: BP 130/61; PULSE 91; RESP 20; TEMP 98.3; O2SAT 97
--- NOTE | 2017-12-21 18:35 | HHI.PR ---
Subjective Remarks Patient doing well with family at the bedside No acute issue no complaint Objective Vitals Vital Signs Date Time Temp Pulse Resp B/P (MAP) Pulse Ox O2 Delivery O2 Flow Rate FiO2 12/21/17 16:00 98.3 91 20 130/61 (84) 97 12/21/17 15:01 Room Air 12/21/17 12:00 98.0 79 20 135/63 (87) 96 12/21/17 10:32 Room Air 12/21/17 08:00 97.5 81 20 128/60 (82) 97 12/21/17 04:00 Room Air 12/21/17 04:00 98.4 84 17 120/59 (79) 100 12/21/17 00:00 Room Air 12/21/17 00:00 98.9 82 16 108/66 (80) 97 12/20/17 20:05 Room Air 12/20/17 20:00 98.7 90 18 132/63 (86) 99 I/O 12/20/17 12/20/17 12/20/17 12/21/17 12/21/17 12/21/17 07:00 15:00 23:00 07:00 15:00 23:00 Intake Total 620 ml 620 ml Balance 620 ml 620 ml Intake Oral 420 ml 420 ml IV Total 200 ml 200 ml # Voids 4 3 3 # Bowel Movements 1 0 Objective Remarks GENERAL: This is a well-nourished, well-developed patient, in no apparent distress. NEUROLOGICAL: Awake and alert. Moves all extremity. Normal speech.no focal neurological deficit A/P Problem List: (1) Bacteremia ICD Code: R78.81 - Bacteremia (2) UTI (urinary tract infection) ICD Code: N39.0 - Urinary tract infection, site not specified (3) CVA (cerebral vascular accident) ICD Code: I63.9 - Cerebral infarction, unspecified (4) Cocaine abuse ICD Code: F14.10 - Cocaine abuse, uncomplicated (5) Aortic valve endocarditis ICD Code: I35.8 - Other nonrheumatic aortic valve disorders Assessment and Plan This is a 52-year-old male patient with a known medical history of recent CVA and cocaine abuse: Aortic valve endocarditis Pseudomonas bacteremia Septic splenic/renal infarcts Continue on IV antibiotics as per infectious disease, on Ampicillin and Cefepime- stop date; 12/23/17 -per ID. CBC, CMP and CRP weekly while on IV antibiotics - 12/19: Continue current care, repeat above labs in a.m. 12/20: Continue current care, IV antibiotic till the , CBC within normal limits hemoglobin improved to 11, BMP within normal 12/21: Continue IV antibiotic, plan for discharge on the when done with the last dose AV, History of CVA with expressive aphasia and multiple embolic episodes likely microabscesses No evidence of decompensation, speech is clear, concise and spontaneous, ambulating independently. Evaluated by neurology- continue rehab efforts. Steatosis on liver US -10/29 etoh. f/u PCP Swollen Ankle, resolved Xray negative for acute process Ultrasound negative for DVT. No sign of acute ankle infection. Continue to monitor. Fire Patrol was consulted and following. Per grill associate recommend compress elevate and continue warm compress with continued ABXs since ankle is improving. Fire Patrol stated that if there is any worsening of symptoms can reconsult. Anemia of chronic disease. H&H stable. Continue to monitor periodically. Social situation. Patient with history of IV drug use, noncompliance. Psychiatry following, does not meet criteria for inpt psychiatric admission DVT prophylaxis: Encourage ambulation. On sq Heparin. Kenya Ledesma MD Dec 21, 2017 18:35
[2017-12-21 20:00] VITALS: BP 117/56; PULSE 87; RESP 18; TEMP 98.9; O2SAT 98
[2017-12-22] MEDS: AMPICILLIN INJ 2,000 MG in SODIUM CHLORIDE 0.9% INJ 100 ML IV SCH ×5 (03:50→21:34)
[2017-12-22] MEDS: CEFEPIME INJ 2,000 MG in SODIUM CHLORIDE 0.9% INJ 100 ML IV SCH ×3 (03:52→21:34)
[2017-12-22 04:00] VITALS: BP 115/56; PULSE 81; RESP 16; TEMP 97.5; O2SAT 96
[2017-12-22] MEDS: HEPARIN SODIUM - SQ 10,000 UNITS/ML VIAL SQ SCH ×3 (05:18→21:35)
[2017-12-22] MEDS: MUPIROCIN 2% OINT 1 APPLIC/GM SYR NASAL SCH ×2 (07:22→21:00)
[2017-12-22] MEDS: DOCUSATE SODIUM 50 MG/SENNA 8.6 MG TAB PO SCH ×2 (07:22→21:00)
[2017-12-22 08:00] VITALS: BP 119/57; PULSE 82; RESP 20; TEMP 97.5; O2SAT 93
[2017-12-22] MEDS: SODIUM CHLORIDE 0.9% FLUSH 10 ML FLUSH IV FLUSH SCH ×2 (09:17→21:35)
[2017-12-22 12:00] VITALS: BP 114/53; PULSE 86; RESP 20; TEMP 98; O2SAT 95
--- NOTE | 2017-12-22 14:42 | HHI.PR ---
Subjective Remarks Resting in bed no acute issue she is on IV antibiotic till December 23 Objective Vitals Vital Signs Date Time Temp Pulse Resp B/P (MAP) Pulse Ox O2 Delivery O2 Flow Rate FiO2 12/22/17 13:03 Room Air 12/22/17 12:00 98.0 86 20 114/53 (73) 95 12/22/17 10:08 Room Air 12/22/17 08:00 97.5 82 20 119/57 (77) 93 12/22/17 04:00 Room Air 12/22/17 04:00 97.5 81 16 115/56 (75) 96 12/22/17 00:00 Room Air 12/21/17 20:50 Room Air 12/21/17 20:00 98.9 87 18 117/56 (76) 98 12/21/17 18:53 Room Air 12/21/17 16:00 98.3 91 20 130/61 (84) 97 12/21/17 15:01 Room Air I/O 12/21/17 12/21/17 12/21/17 12/22/17 12/22/17 12/22/17 07:00 15:00 23:00 07:00 15:00 23:00 Intake Total 620 ml 200 ml 780 ml Balance 620 ml 200 ml 780 ml Intake Oral 420 ml 480 ml IV Total 200 ml 200 ml 300 ml # Voids 3 6 # Bowel Movements 0 1 Objective Remarks GENERAL: This is a well-nourished, well-developed patient, in no apparent distress. NEUROLOGICAL: Awake and alert. Moves all extremity. Normal speech.no focal neurological deficit A/P Problem List: (1) Bacteremia ICD Code: R78.81 - Bacteremia (2) UTI (urinary tract infection) ICD Code: N39.0 - Urinary tract infection, site not specified (3) CVA (cerebral vascular accident) ICD Code: I63.9 - Cerebral infarction, unspecified (4) Cocaine abuse ICD Code: F14.10 - Cocaine abuse, uncomplicated (5) Aortic valve endocarditis ICD Code: I35.8 - Other nonrheumatic aortic valve disorders Assessment and Plan This is a 52-year-old male patient with a known medical history of recent CVA and cocaine abuse: Aortic valve endocarditis Pseudomonas bacteremia Septic splenic/renal infarcts Continue on IV antibiotics as per infectious disease, on Ampicillin and Cefepime- stop date; 12/23/17 -per ID. CBC, CMP and CRP weekly while on IV antibiotics - Plan to finish IV antibiotic on December 23 AV, History of CVA with expressive aphasia and multiple embolic episodes likely microabscesses No evidence of decompensation, speech is clear, concise and spontaneous, ambulating independently. Evaluated by neurology- continue rehab efforts. Steatosis on liver US -10/29 etoh. f/u PCP Swollen Ankle, resolved Xray negative for acute process Ultrasound negative for DVT. No sign of acute ankle infection. Continue to monitor. Shredder Tender Peat was consulted and following. Per spike machine operator recommend compress elevate and continue warm compress with continued ABXs since ankle is improving. Shredder Tender Peat stated that if there is any worsening of symptoms can reconsult. Anemia of chronic disease. H&H stable. Continue to monitor periodically. Social situation. Patient with history of IV drug use, noncompliance. Psychiatry following, does not meet criteria for inpt psychiatric admission DVT prophylaxis: Encourage ambulation. On sq Heparin. Discharge Planning When done with IV antibiotic December 23 Kenya Ledesma MD Dec 22, 2017 14:42
[2017-12-22 16:12] VITALS: BP 107/54; PULSE 78; RESP 17; TEMP 98.5; O2SAT 98
[2017-12-22 20:18] VITALS: BP 111/56; PULSE 87; RESP 16; TEMP 97.6; O2SAT 94
[2017-12-23 00:08] VITALS: BP 119/54; PULSE 88; RESP 18; TEMP 97.2; O2SAT 96
[2017-12-23] MEDS: AMPICILLIN INJ 2,000 MG in SODIUM CHLORIDE 0.9% INJ 100 ML IV SCH ×5 (00:56→16:24)
[2017-12-23] MEDS: CEFEPIME INJ 2,000 MG in SODIUM CHLORIDE 0.9% INJ 100 ML IV SCH ×2 (04:32→12:42)
[2017-12-23] MEDS: HEPARIN SODIUM - SQ 10,000 UNITS/ML VIAL SQ SCH ×2 (05:09→12:52)
[2017-12-23 05:38] VITALS: BP 114/54; PULSE 80; RESP 18; TEMP 98.1; O2SAT 95
[2017-12-23 08:02] VITALS: BP 114/58; PULSE 81; RESP 18; TEMP 98; O2SAT 98
[2017-12-23] MEDS: DOCUSATE SODIUM 50 MG/SENNA 8.6 MG TAB PO SCH (09:00)
[2017-12-23] MEDS: MUPIROCIN 2% OINT 1 APPLIC/GM SYR NASAL SCH (09:00)
[2017-12-23 09:02] LABS: BICARBONATE 23.1 MEQ/L (21.0-32.0); CALCIUM 9.2 MG/DL (8.5-10.1); CREATININE 0.99 MG/DL (0.60-1.30); MAGNESIUM 2.2 MG/DL (1.5-2.5)
[2017-12-23 09:03] LABS: PHOSPHORUS 3.5 MG/DL (2.5-4.9)
[2017-12-23] MEDS: SODIUM CHLORIDE 0.9% FLUSH 10 ML FLUSH IV FLUSH SCH (09:05)
--- NOTE | 2017-12-23 09:45 | HHI.PR ---
Subjective Remarks no complains wanting to go home d/w him last dose -tonight for both antiibotics Objective Vitals Vital Signs Date Time Temp Pulse Resp B/P (MAP) Pulse Ox O2 Delivery O2 Flow Rate FiO2 12/23/17 05:38 98.1 80 18 114/54 (74) 95 12/23/17 00:13 Room Air 12/23/17 00:08 97.2 88 18 119/54 (75) 96 12/22/17 20:22 Room Air 12/22/17 20:18 97.6 87 16 111/56 (74) 94 12/22/17 18:09 Room Air 12/22/17 16:12 98.5 78 17 107/54 (71) 98 12/22/17 13:03 Room Air 12/22/17 12:00 98.0 86 20 114/53 (73) 95 12/22/17 10:08 Room Air I/O 12/22/17 12/22/17 12/22/17 12/23/17 12/23/17 12/23/17 07:00 15:00 23:00 07:00 15:00 23:00 Intake Total 780 ml 800 ml 200 ml Balance 780 ml 800 ml 200 ml Intake Oral 480 ml 600 ml IV Total 300 ml 200 ml 200 ml # Voids 6 3 # Bowel Movements 1 1 Result Diagram: 12/23/17 0710 Imaging Last Impressions Lower Extremity Ultrasound 11/19/17 0000 Signed Impressions: Service Date/Time: Sunday, November 19, 2017 08:30 - CONCLUSION: Complex fluid collection in the posterior medial soft tissues measuring up to 1.2 cm, correlating with the findings seen on recent MRI. Seth Verma MD Ankle MRI 11/17/17 0000 Signed Impressions: Service Date/Time: Friday, November 17, 2017 21:51 - CONCLUSION: 1. Normal marrow edema with no evidence of osteomyelitis. 2. Soft tissue edema along the medial ankle with 1.2 cm focal area of abnormality which could represent a small abscess or cystic structure. This did not enhance. 3. Mild tenosynovitis involving the flexor digitorum longus tendon, tibialis posterior tendon and peroneus longus tendon Jerad Santos MD Chest CT 11/16/17 0000 Signed Impressions: Service Date/Time: Thursday, November 16, 2017 12:55 - CONCLUSION: 1. Trace right and small left pleural effusions with associated airspace consolidation at the lung bases. Differential considerations include aspiration or pneumonia with reactive effusions versus pleural effusions with compressive atelectasis. 2. Partially imaged right shaped defects in the azygous portions of the spleen which may reflect splenic infarcts. 3. Eccentric aortic valve calcifications consistent with prior history of aortic valve endocarditis. Russell Jose MD Abdomen/Pelvis CT 11/16/17 0000 Signed Impressions: Service Date/Time: Thursday, November 16, 2017 12:57 - CONCLUSION: 1. Stable probable embolic splenic and renal infarcts. 2. No acute abnormality or significant interval change. Specifically, no evidence for drainable abscess in the abdomen. Russell Jose MD Ankle X-Ray 11/14/17 0000 Signed Impressions: Service Date/Time: Tuesday, November 14, 2017 14:00 - CONCLUSION: Unremarkable examination of the right ankle. Valeriy Chapa MD Head CT 11/10/17 1036 Signed Impressions: Service Date/Time: Friday, November 10, 2017 12:16 - CONCLUSION: There is abnormal low density, likely representing cytotoxic edema, in the left frontal lobe. This very likely is related to a recent ischemic event. Reji Dasilva MD Chest X-Ray 11/10/17 1036 Signed Impressions: Service Date/Time: Friday, November 10, 2017 10:54 - CONCLUSION: No acute cardiopulmonary process. Kirby Trejo MD Liver Ultrasound 11/10/17 0000 Signed Impressions: Service Date/Time: Friday, November 10, 2017 14:47 - CONCLUSION: 1. Liver and spleen are both enlarged with multiple diffuse hepatic fatty infiltration. 2. Linear echogenic area within the lateral mid body of the spleen may represent a focal area of scarring. 3. Benign renal cortical cysts of the right kidney. 4. Small 3 mm gallbladder polyp. Gallbladder is otherwise sonographically normal. Kirby Trejo MD Brain MRI 11/10/17 0000 Signed Impressions: Service Date/Time: Friday, November 10, 2017 20:51 - CONCLUSION: The eighth of diminished attenuation involving the left frontoparietal junction on the patient's prior CT examination corresponds to acute infarction in addition to multiple other areas of new acute infarction bilaterally not present on the prior MRI dated 09/10/2017 and previously seen acute infarctions on the right side on that study have been evolved. Findings were discussed with the patient's nurse Chandan on 11/10/2017 9:19 PM. Fernanda Padilla MD Objective Remarks awake and alert, no acute distress anicteric lungs- no rales regular rhythm, 4/6 systolic murmur left sternal border to apex abdomen soft, good bowel sounds extremities no edema neuro exam- unremarkable A/P Problem List: (1) Bacteremia ICD Code: R78.81 - Bacteremia (2) UTI (urinary tract infection) ICD Code: N39.0 - Urinary tract infection, site not specified (3) CVA (cerebral vascular accident) ICD Code: I63.9 - Cerebral infarction, unspecified (4) Cocaine abuse ICD Code: F14.10 - Cocaine abuse, uncomplicated (5) Aortic valve endocarditis ICD Code: I35.8 - Other nonrheumatic aortic valve disorders Assessment and Plan This is a 52-year-old male patient with a known medical history of recent CVA and cocaine abuse: Aortic valve endocarditis Pseudomonas bacteremia Septic splenic/renal infarcts Continue on IV antibiotics as per infectious disease, on Ampicillin and Cefepime- stop date; 12/23/17 -per ID. CBC, CMP and CRP weekly while on IV antibiotics - Plan to finish IV antibiotic on December 23- tonight AV, History of CVA with expressive aphasia and multiple embolic episodes likely microabscesses No evidence of decompensation, speech is clear, concise and spontaneous, ambulating independently. neuro doing well Steatosis on liver US -/ etoh. f/u PCP Swollen Ankle, resolved Xray negative for acute process Ultrasound negative for DVT. No sign of acute ankle infection. Continue to monitor. [employer] was consulted and following. Per foreign exchange student coordinator recommend compress elevate and continue warm compress with continued ABXs since ankle is improving. Director [employer] stated that if there is any worsening of symptoms can reconsult. Anemia of chronic disease. H&H stable. Continue to monitor periodically. Social situation. Patient with history of IV drug use, noncompliance. Psychiatry following, does not meet criteria for inpt psychiatric admission DVT prophylaxis: Encourage ambulation. On sq Heparin DC home today after last dose of antibiotics this pm d/w patient and Flakito Sanchez MD Dec 23, 2017 09:45
--- NOTE | 2017-12-23 10:17 | HHI.DS ---
Discharge Summary Admission Date Nov 10, 2017 at 12:59 Discharge Date: Dec 23, 2017 Admitting Diagnosis Severe sepsis/altered mental status/CVA (1) Bacteremia ICD Code: R78.81 - Bacteremia Diagnosis: Principal (2) UTI (urinary tract infection) ICD Code: N39.0 - Urinary tract infection, site not specified Diagnosis: Secondary (3) CVA (cerebral vascular accident) ICD Code: I63.9 - Cerebral infarction, unspecified Diagnosis: Secondary (4) Cocaine abuse ICD Code: F14.10 - Cocaine abuse, uncomplicated Diagnosis: Secondary (5) Aortic valve endocarditis ICD Code: I35.8 - Other nonrheumatic aortic valve disorders Diagnosis: Principal Procedures none Brief History - From Admission 52 years old male with H/O CVA last August presented to the ED with transitional change in mental status not being able to verbalize words patient seems to be able to understand words however he cannot answer verbally which is consistent with expressive aphasia he said he has been having sweating since last night started with a weakness on his left side, there was a fever of 103 with positive chills, patient denied any pain, he reported cough with no significant phlegm, he denied any diarrhea abdominal pain nausea vomiting or dysuria As mentioned above patient had multiple bilateral small ischemic stroke in August 2017 he was seen by neurologist and sent home on baby aspirin 2 tablets In the previous admission there was a concern for right heart endocarditis however NOHELIA did not reveal any vegetation CBC/BMP: 12/23/17 0710 Significant Findings Laboratory Tests Test 12/23/17 07:10 Chloride Level 109 MEQ/L (98-107) Estimat Glomerular Filtration Rate 80 ML/MIN (>89) Total Creatine Kinase 36 U/L (39-308) Imaging Last Impressions Lower Extremity Ultrasound 11/19/17 0000 Signed Impressions: Service Date/Time: Sunday, November 19, 2017 08:30 - CONCLUSION: Complex fluid collection in the posterior medial soft tissues measuring up to 1.2 cm, correlating with the findings seen on recent MRI. Seth Verma MD Ankle MRI 11/17/17 0000 Signed Impressions: Service Date/Time: Friday, November 17, 2017 21:51 - CONCLUSION: 1. Normal marrow edema with no evidence of osteomyelitis. 2. Soft tissue edema along the medial ankle with 1.2 cm focal area of abnormality which could represent a small abscess or cystic structure. This did not enhance. 3. Mild tenosynovitis involving the flexor digitorum longus tendon, tibialis posterior tendon and peroneus longus tendon Jerad Santos MD Chest CT 11/16/17 0000 Signed Impressions: Service Date/Time: Thursday, November 16, 2017 12:55 - CONCLUSION: 1. Trace right and small left pleural effusions with associated airspace consolidation at the lung bases. Differential considerations include aspiration or pneumonia with reactive effusions versus pleural effusions with compressive atelectasis. 2. Partially imaged right shaped defects in the azygous portions of the spleen which may reflect splenic infarcts. 3. Eccentric aortic valve calcifications consistent with prior history of aortic valve endocarditis. Russell Jose MD Abdomen/Pelvis CT 11/16/17 0000 Signed Impressions: Service Date/Time: Thursday, November 16, 2017 12:57 - CONCLUSION: 1. Stable probable embolic splenic and renal infarcts. 2. No acute abnormality or significant interval change. Specifically, no evidence for drainable abscess in the abdomen. Russell Jose MD Ankle X-Ray 11/14/17 0000 Signed Impressions: Service Date/Time: Tuesday, November 14, 2017 14:00 - CONCLUSION: Unremarkable examination of the right ankle. Valeriy Chapa MD Head CT 11/10/17 1036 Signed Impressions: Service Date/Time: Friday, November 10, 2017 12:16 - CONCLUSION: There is abnormal low density, likely representing cytotoxic edema, in the left frontal lobe. This very likely is related to a recent ischemic event. Reji Dasilva MD Chest X-Ray 11/10/17 1036 Signed Impressions: Service Date/Time: Friday, November 10, 2017 10:54 - CONCLUSION: No acute cardiopulmonary process. Kirby Trejo MD Liver Ultrasound 11/10/17 0000 Signed Impressions: Service Date/Time: Friday, November 10, 2017 14:47 - CONCLUSION: 1. Liver and spleen are both enlarged with multiple diffuse hepatic fatty infiltration. 2. Linear echogenic area within the lateral mid body of the spleen may represent a focal area of scarring. 3. Benign renal cortical cysts of the right kidney. 4. Small 3 mm gallbladder polyp. Gallbladder is otherwise sonographically normal. Kirby Trejo MD Brain MRI 11/10/17 0000 Signed Impressions: Service Date/Time: Friday, November 10, 2017 20:51 - CONCLUSION: The eighth of diminished attenuation involving the left frontoparietal junction on the patient's prior CT examination corresponds to acute infarction in addition to multiple other areas of new acute infarction bilaterally not present on the prior MRI dated 09/10/2017 and previously seen acute infarctions on the right side on that study have been evolved. Findings were discussed with the patient's nurse Chandan on 11/10/2017 9:19 PM. Fernanda Padilla MD PE at Discharge GENERAL: This is a well-nourished, well-developed patient, in no apparent distress. NEUROLOGICAL: Awake and alert. Moves all extremity. Normal speech.no focal neurological deficit Pt update on day of discharge afevrile interactive advised and motivated - substance abuse counselling Hospital Course This is a 52-year-old male patient with a known medical history of recent CVA and cocaine abuse: Aortic valve endocarditis Pseudomonas bacteremia Septic splenic/renal infarcts Continue on IV antibiotics as per infectious disease, on Ampicillin and Cefepime- stop date; 12/23/17 -per ID. CBC, CMP and CRP weekly while on IV antibiotics - Plan to finish IV antibiotic on December 23- tonight AV, History of CVA with expressive aphasia and multiple embolic episodes likely microabscesses No evidence of decompensation, speech is clear, concise and spontaneous, ambulating independently. neuro doing well Steatosis on liver US -10/29 etoh. f/u PCP Swollen Ankle, resolved Xray negative for acute process Ultrasound negative for DVT. No sign of acute ankle infection. Continue to monitor. [employer] was consulted and following. Per supervisor lead refinery recommend compress elevate and continue warm compress with continued ABXs since ankle is improving. [employer] stated that if there is any worsening of symptoms can reconsult. Anemia of chronic disease. H&H stable. Continue to monitor periodically. Social situation. Patient with history of IV drug use, noncompliance. Psychiatry following, does not meet criteria for inpt psychiatric admission DVT prophylaxis: Encourage ambulation. On sq Heparin DC home today after last dose of antibiotics this pm d/w patient and CM Pt Condition on Discharge: Stable Discharge Disposition: Discharge Home Discharge Time: <= 30 minutes Discharge Instructions DIET: Follow Instructions for: As Tolerated, No Restrictions Activities you can perform: Weight Bearing as Hakeem Follow up Referrals: PCP Follow-up - 1 Week with OP referral Continued Medications: Aspirin (Aspirin DR) 81 Mg Tabdr 162 MG PO DAILY for Blood Clot Prevention, #30 TAB 0 Refills Flakito Magallon MD Dec 23, 2017 10:16
[2017-12-23 12:02] VITALS: BP 112/55; PULSE 84; RESP 18; TEMP 97.8; O2SAT 97
[2017-12-23 16:02] VITALS: BP 119/57; PULSE 84; RESP 18; TEMP 97.4; O2SAT 99
== END 2017-12-23 18:35 | disposition home or self-care (01) | DRG 871 ==
LOC: NEPC 10:18 → NEDA 12:59 → HIME 15:30 → N06B 11-12 00:05 → N04A 12-13 23:45
PROVIDERS: ADMIT Internal Medicine; ATTEND Internal Medicine
DX: A41.81 Sepsis due to Enterococcus (principal); I63.40 Cerebral infarction due to embolism of unspecified cerebral artery; I76 Septic arterial embolism; K76.0 Fatty (change of) liver, not elsewhere classified; E87.2 Acidosis; N17.9 Acute kidney failure, unspecified; I74.8 Embolism and thrombosis of other arteries; K70.9 Alcoholic liver disease, unspecified; J18.9 Pneumonia, unspecified organism; L03.115 Cellulitis of right lower limb; L02.413 Cutaneous abscess of right upper limb; F05 Delirium due to known physiological condition; N28.0 Ischemia and infarction of kidney; N39.0 Urinary tract infection, site not specified; A41.52 Sepsis due to Pseudomonas; R65.20 Severe sepsis without septic shock; I35.8 Other nonrheumatic aortic valve disorders; E86.0 Dehydration; R74.0 Nonspecific elevation of levels of transaminase and lactic acid dehydrogenase [LDH]; F17.210 Nicotine dependence, cigarettes, uncomplicated; D63.8 Anemia in other chronic diseases classified elsewhere; F14.10 Cocaine abuse, uncomplicated; R29.810 Facial weakness; I34.0 Nonrheumatic mitral (valve) insufficiency; Z51.5 Encounter for palliative care; Z66 Do not resuscitate; I69.320 Aphasia following cerebral infarction; Z91.14 Patient's other noncompliance with medication regimen; Z91.19 Patient's noncompliance with other medical treatment and regimen; I77.6 Arteritis, unspecified; Z79.2 Long term (current) use of antibiotics
CPT/HCPCS: 70450; 70551; 71045; 71260; 73610; 73723; 74177; 76705; 76882; 76937; 80048; 80053; 80061; 80069; 80074; 80076; 80202; 81001; 82550; 82948; 83036; 83605; 83690; 83735; 83880; 84100; 84439; 84443; 85025; 85610; 86140; 87040; 87077; 87086; 87186; 87205; 87641; 87804; 93308; 93971; 96365; A9579; J0290; J0692; J1644; J3370; J7030; J7050; Q9963; Q9967